=== PATIENT | female | born 1990 | race Caucasian/White ===

== ENCOUNTER 2017-11-22 21:12 | Outpatient (CLI) | payer MEDICAID, SELFPAY ==
[2017-11-22 22:21] LABS: ROM Internal Control Test YES-OK TO RESULT pt. (Internal QC); ROM Patient Test Negative (Negative)
[2017-11-22 22:35] LABS: Mucous, Urine 0 SEEN /hpf (<or=2+); Red Blood Cells-Urine 0 SEEN /hpf (0-5)
[2017-11-22 22:43] VITALS: BMI 39.2
[2017-11-22 22:45] LABS: Color, Urine Yellow (Yellow); Glucose, Dipstick Normal (Normal); Ketone-Dipstick Negative (Negative); Leukocyte Esterase-Dipstick 100 /ul (Negative); Nitrite-Dipstick Negative (Negative); Occult Blood-Urine 10 /ul (Negative); Protein-Dipstick Negative (Negative); Urine Bilirubin Dipstick Negative (Negative); Urine Clarity Clear (Clear); Urine Urobilinogen Normal (Normal)
[2017-11-22 22:53] LABS: Bacteria 1+ /hpf (None Seen); Squamous Epithelial Cells - UA 0-5 SEEN /hpf (5-10); White Blood Cells 0-5 SEEN /hpf (0-5)
[2017-11-22] MEDS: Lactated Ringers 1,000 ML 999 ML IV (23:15)
[2017-11-22 23:39] LABS: Hematocrit 32.9 % (37-47); Hemoglobin 10.9 g/dl (12.0-15.0); Mean Corp Hgb Conc 33.1 g/gl (32-36); Mean Corpuscular Hgb 29.5 pg (27.0-32.0); Mean Corpuscular Volume 88.9 fL (81-99); Platelet Count 183 K/mm3 (150-450); RBC Distribution Width CV 14.8 % (11.6-14.6); RBC Distribution Width SD 48.4 fl (35.1-43.9); White Blood Count 11.6 K/mm3 (4.4-11.0)
[2017-11-22 23:40] LABS: Scan Indicated on CBC? Y/N NO
[2017-11-22 23:41] LABS: AST(SGOT) 14 U/L (15-37); Alanine Aminotransfer ALT/SGPT 14 U/L (13-56); Creatinine, Serum 0.58 mg/dL (0.55-1.02); EST Glomerular Filtration Rate 131 mL/min (>60); Est Glom Filt Rate - Afr Amer 158 mL/min (>60); Estimated Creatinine Clearance 141.68 ml/min; Protein, Urine (Random) 8.9 mg/dL (<11.9); Protein:Creat Ratio 333 mg/g CRE (0-200); Uric Acid 4.7 mg/dL (2.6-6.0)
[2017-11-23 00:35] LABS: International Normalized Ratio 1.1; Partial Thromboplast Time 26.8 Seconds (24.1-36.2); Prothrombin Time (Protime)PT. 13.7 SECONDS (11.7-14.9)
[2017-11-23 00:47] LABS: Protein, Urine (Random) 6.3 mg/dL (<11.9); Protein:Creat Ratio 412 mg/g CRE (0-200)
[2017-11-23] MEDS: Lactated Ringers 1,000 ML 125 ML IV (01:06)
--- NOTE | 2017-11-23 01:39 | OB.TRI.HP_ITS ---
History of Present Illness Date of Service: 11/22/17 Was patient seen by the physician?: Yes Reason For Visit: LABOR & DELIVERY Date of Service: 11/22/17 Final MELISSA: 12/06/17 Final MELISSA Source: US <20 weeks Gestational age: 38 Weeks and 1 Days History of Present Illness: @ 38.1 presented c/o ? LOF. Pt denies SWAN, blurry vision or epigastric pain Home Medications Medication Instructions Recorded Acyclovir 200 mg PO BID 11/22/17 Allergies raspberry Allergy (Verified 11/22/17 22:45) Unknown vaccine adjuvant emulsion MF59C.1 Allergy (Verified 11/22/17 22:45) Unknown Physical Exam General: Alert, Oriented x3 Abdomen: Soft, Non Tender, Gravid Extremities:: Deep tendon reflexes - +2, Other - no clonus Estimated gestational size: Appropriate for gestational size Presentation: Breech Cervix Dilation (cm): 0 Station: -3 Effacement (%): 0 NST - FHR Rate Baby A Baseline: 135 Variability:: Moderate Accelerations:: 15 x 15 Decelerations:: None NST Reactive:: Yes FHR Category:: Category I Uterine Activity:: occasional Impression/Plan 27yo @ 38.1 wks, breech, not in labor 1) pt had 2 slightly elevated BP- PRE E labs sent- normal. UA showed negative protein however the urine prot/creatinine ratio was elevated- since arrival BPs have been normal. At this time I would like to collect 24 hr urine protein. 2) BREECH- attempted external cephalic version- was able to rotate to vertex but fetus returned to breech presentation. 3) pt does not desires c/s and would like to attempt repeat external cephalic version on saturday as scheduled with help of assistant grocery store manager. 4) Pt was counseled that if 24 hr urine protein is elevated then decision would be for delivery at this time.
--- NOTE | 2017-11-23 01:39 | PCM.OP.BLANK ---
Operative Report Date of Procedure: 11/23/17 surgeon: Dr. Sita Bahena cement tester assistant: none anesthesia None Pre procedure dx: Term gestation, BREECH Post procedure dx: same Procedure performed: External cephalic version complications: NONE After informed was obtained and a category 1 reactive tracing was noted ultrasound was used to confirm breech presentation with adequate ONEIL, head in maternal right upper quadrant. Attempted backward roll first without success. Next attempted forward roll was performed and was able to get the head in an oblique position in the left lower quadrant. It appeared with gentle downward pressure the head was vertex however quickly reverted back to the maternal right upper quadrant once pressure was release from abdomen. Vaginal exam was performed- Closed, thick. pt tolerated well. Pt will try different position as fetus has been unstable in presentation. Will reattempt version 11/25/17 as desired by patient.
--- NOTE | 2017-11-23 01:45 | OP.PCM_ITS ---
Operative Report Date of Procedure: 11/23/17 surgeon: Dr. Sita Bahena assistant finance manager: none anesthesia None Pre procedure dx: Term gestation, BREECH Post procedure dx: same Procedure performed: External cephalic version complications: NONE After informed was obtained and a category 1 reactive tracing was noted ultrasound was used to confirm breech presentation with adequate ONEIL, head in maternal right upper quadrant. Attempted backward roll first without success. Next attempted forward roll was performed and was able to get the head in an oblique position in the left lower quadrant. It appeared with gentle downward pressure the head was vertex however quickly reverted back to the maternal right upper quadrant once pressure was release from abdomen. Vaginal exam was performed- Closed, thick. pt tolerated well. Pt will try different position as fetus has been unstable in presentation. Will reattempt version 11/25/17 as desired by patient.
--- NOTE | 2017-11-23 07:15 | PCM.PN.BLA ---
Progress Note pt seen at bedside, BPs have been stable overnight. Will get NST this morning- if reactive will dc home with 24 hr urine protein to be collected at home and turned back to L&D first thing in morning. Dr. Arreola consulted with this and agrees with plan, will follow up lab tomorrow. Pt understands if 24 hr urine protein is abnormal she will be notified for delivery tomorrow via c/s. If 24 hr urine protein is normal we will proceed with plan to reattempt version on saturday11/25/17. pt verbalized understanding.
[2017-11-24 09:59] LABS: 24 Hour Urine Protein 386.3 mg/24HR (<150 MG/24HR); 24HR. UA Prot. Total Volume 3825 mL; Urine Protein (24 Hour) 10.1 mg/dL (<11.9)
== END 2017-11-23 07:53 | disposition home or self-care (01) ==
LOC: WPOUT 21:29 → WP 21:30
PROVIDERS: Family Provider Obstetrics & Gynecology; Visit Provider Obstetrics & Gynecology
DX: O32.1XX0 Maternal care for breech presentation, not applicable or unspecified (principal); R03.0 Elevated blood-pressure reading, without diagnosis of hypertension; Z3A.38 38 weeks gestation of pregnancy
CPT/HCPCS: 36415; 59025; 59050; 59412; 76815; 81001; 82565; 82570; 84112; 84156; 84450; 84460; 84550; 85027; 85610; 85730; 86850; 86900; 99218; J7120; G0378

== ENCOUNTER 2017-11-24 11:35 | Outpatient (CLI) | payer MEDICAID, SELFPAY ==
[2017-11-24 12:02] VITALS: BMI 41.7
--- NOTE | 2017-11-24 16:09 | OB.TRI.NOTE ---
History of Present Illness Date of Service: 11/24/17 Reason For Visit: R/O LABOR Date of Service: 11/24/17 Final MELISSA: 12/06/17 Gestational age: 38 Weeks and 2 Days Home Medications Medication Instructions Recorded RX: Acyclovir 400 mg PO BID 11/22/17 Prenatabs FA 1 tab PO DAILY 11/24/17 Allergies raspberry Allergy (Verified 11/22/17 22:45) Unknown vaccine adjuvant emulsion MF59C.1 Allergy (Verified 11/22/17 22:45) Unknown NST - FHR Rate Baby A Baseline: 140 Variability:: Moderate Accelerations:: 15 x 15 Decelerations:: None, Early Uterine Activity:: quiet Impression/Plan reactive NST for proteinuria in No evidence preeclampsia as BP's normal
== END 2017-11-24 12:45 | disposition home or self-care (01) ==
LOC: WPOUT 11:59 → WP 11:59
PROVIDERS: Family Provider Family Medicine; PCP Family Medicine; Visit Provider Obstetrics & Gynecology
DX: O12.13 Gestational proteinuria, third trimester (principal); Z3A.38 38 weeks gestation of pregnancy
CPT/HCPCS: 59025; 59050; 99218; G0378

== ENCOUNTER 2017-11-29 06:45 | Inpatient (IN) | payer MEDICAID, SELFPAY ==
[2017-11-29 06:52] VITALS: BMI 41.1
[2017-11-29] MEDS: Lactated Ringers 1,000 ML 50 ML IV ×4 (07:30→23:39)
[2017-11-29 08:03] LABS: Hematocrit 33.9 % (37-47); Hemoglobin 11.2 g/dl (12.0-15.0); Mean Corpuscular Hgb 29.7 pg (27.0-32.0); Mean Corpuscular Volume 89.9 fL (81-99); Mean Platelet Vol. 10.2 fl (6.2-12.0); Platelet Count 181 K/mm3 (150-450); RBC Distribution Width SD 47.7 fl (35.1-43.9); Red Blood Count 3.77 M/mm3 (4.2-5.4)
[2017-11-29 08:04] LABS: Scan Indicated on CBC? Y/N NO
[2017-11-29] MEDS: Oxytocin 30 units/NS 500 ml 30 UNITS/500 ML IV.SOLN IV (08:12)
--- NOTE | 2017-11-29 13:39 | PCM.HP.OB ---
- Problem List (1) Depression Status: Acute (2) Vulvovaginal condyloma Status: Acute (3) History of third degree perineal laceration Status: Acute (4) Genital herpes Status: Resolved (5) History of marijuana use Status: Acute (6) Obesity affecting Status: Acute (7) Unstable lie of fetus Status: Acute History Date of Admission: 11/29/17 Final MELISSA: 12/06/17 Final MELISSA Source: LMP Gestational age: 39 Weeks and 0 Days History of this : female at 39w0d by LMP, confirmed by first trimester U/S. Presented to L&D for induction of labor due to unstable lie and confirmed cephalic on admission by ultrasound. Denies any headaches, visual changes, chest pain, shortness of breath, leakage of fluid or vaginal bleeding. Patient does not have custody of other 2 children, live with her mother. OB Hx: History of 3rd degree perineal laceratino Depression-No current treatment, history of suicidal ideations Vulvovaginal condyloma HSV-Acyclovir prophylaxis Obesity Allergies raspberry Allergy (Verified 11/22/17 22:45) Unknown vaccine adjuvant emulsion MF59C.1 Allergy (Verified 11/22/17 22:45) Unknown Current Medications Acetaminophen (Tylenol) 325 - 650 mg PO Q4H PRN PRN PRN Reason: PAIN OR FEVER >100.4F Al Hydroxide/Mg Hydroxide (Mylanta Ii) 15 - 30 ml PO Q4H PRN PRN PRN Reason: INDIGESTION Citric Acid/Sodium Citrate (Bicitra) 30 ml PO UD PRN Oxytocin/Sodium Chloride () 30 units in 500 mls @ 1 mls/hr IV .Q500H [facility] Last Admin: 11/29/17 08:12 Dose: 1 mls/hr Lactated Ringer's () 1,000 mls @ 50 mls/hr IV .Q20H [facility] Last Admin: 11/29/17 07:30 Dose: 50 mls/hr Nalbuphine HCl (Nubain) 5 - 10 mg IV Q3H PRN PRN PRN Reason: PAIN (4-10/10) Ondansetron HCl (Zofran) 4 mg IV Q8H PRN PRN PRN Reason: NAUSEA Promethazine HCl (Phenergan (Ll)) 6.25 - 12.5 mg IV Q4H PRN PRN; Protocol PRN Reason: IF NAUSEA PERSISTS Sodium Chloride () 5 - 15 ml IV UD LOTTIE Smoking Status: Former smoker Alcohol: None Drug Use: none - History of marijana use. NO use since positive test Number of Fetus(es): 1 Review of Systems Constitutional: Denies: Chills, Fever, Weight Change Cardiovascular: Reports: Chest Pain Respiratory: Reports: Cough Gastrointestinal: Denies: Abdominal Pain, Nausea, Vomiting Genitourinary: Denies: Dysuria Physical Exam Vitals: GBS negative Rubella Immune HIV negative RPR negative HBsAG negative GC/CT negative AB positive, antibody screen negative General: Alert, Oriented x3, No apparent distress Cardiovascular: Regular rate, Regular Rhythm, No murmurs Lungs: Clear to auscultation, No rhonchi, No wheeze Abdomen: Bowel Sounds Present, Gravid Extremities:: No edema Presentation: Cephalic Cervix Dilation (cm): 1 Station: -3 Effacement (%): 50 Assessment/Plan Active and Suspected Problems Depression (Acute) Vulvovaginal condyloma (Acute) History of third degree perineal laceration (Acute) History of marijuana use (Acute) Obesity affecting (Acute) Unstable lie of fetus (Acute) FHT 135, moderate variability, accels, Category 1 Irregular contraction Pitocin 9 mu's A:Pitocin Induction of labor, early labor Category 1 FHT P: 1) Admit to L&D routine induction orders 2) Continue with Pitocin induction 3) Walcher's position and position changes. 4) collaborative physician, updated on patient status Janette Ace CNM
[2017-11-29] MEDS: Acetaminophen 325 MG Tablet PO (13:47)
--- NOTE | 2017-11-29 13:52 | HP.PCM_ITS ---
- Problem List (1) Depression Status: Acute (2) Vulvovaginal condyloma Status: Acute (3) History of third degree perineal laceration Status: Acute (4) Genital herpes Status: Resolved (5) History of marijuana use Status: Acute (6) Obesity affecting Status: Acute (7) Unstable lie of fetus Status: Acute History Date of Admission: 11/29/17 Final MELISSA: 12/06/17 Final MELISSA Source: LMP Gestational age: 39 Weeks and 0 Days History of this : female at 39w0d by LMP, confirmed by first trimester U/S. Presented to L &D for induction of labor due to unstable lie and confirmed cephalic on admission by ultrasound. Denies any headaches, visual changes, chest pain, shortness of breath, leakage of fluid or vaginal bleeding. Patient does not have custody of other 2 children, live with her mother. OB Hx: History of 3rd degree perineal laceratino Depression-No current treatment, history of suicidal ideations Vulvovaginal condyloma HSV-Acyclovir prophylaxis Obesity Allergies raspberry Allergy (Verified 11/22/17 22:45) Unknown vaccine adjuvant emulsion MF59C.1 Allergy (Verified 11/22/17 22:45) Unknown Current Medications Acetaminophen (Tylenol) 325 - 650 mg PO Q4H PRN PRN PRN Reason: PAIN OR FEVER >100.4F Al Hydroxide/Mg Hydroxide (Mylanta Ii) 15 - 30 ml PO Q4H PRN PRN PRN Reason: INDIGESTION Citric Acid/Sodium Citrate (Bicitra) 30 ml PO UD PRN Oxytocin/Sodium Chloride () 30 units in 500 mls @ 1 mls/hr IV .Q500H [facility] Last Admin: 11/29/17 08:12 Dose: 1 mls/hr Lactated Ringer's () 1,000 mls @ 50 mls/hr IV .Q20H [facility] Last Admin: 11/29/17 07:30 Dose: 50 mls/hr Nalbuphine HCl (Nubain) 5 - 10 mg IV Q3H PRN PRN PRN Reason: PAIN (4-10/10) Ondansetron HCl (Zofran) 4 mg IV Q8H PRN PRN PRN Reason: NAUSEA Promethazine HCl (Phenergan (Ll)) 6.25 - 12.5 mg IV Q4H PRN PRN; Protocol PRN Reason: IF NAUSEA PERSISTS Sodium Chloride () 5 - 15 ml IV UD LOTTIE Smoking Status: Former smoker Alcohol: None Drug Use: none - History of marijana use. NO use since positive test Number of Fetus(es): 1 Review of Systems Constitutional: Denies: Chills, Fever, Weight Change Cardiovascular: Reports: Chest Pain Respiratory: Reports: Cough Gastrointestinal: Denies: Abdominal Pain, Nausea, Vomiting Genitourinary: Denies: Dysuria Physical Exam Vitals: GBS negative Rubella Immune HIV negative RPR negative HBsAG negative GC/CT negative AB positive, antibody screen negative General: Alert, Oriented x3, No apparent distress Cardiovascular: Regular rate, Regular Rhythm, No murmurs Lungs: Clear to auscultation, No rhonchi, No wheeze Abdomen: Bowel Sounds Present, Gravid Extremities:: No edema Presentation: Cephalic Cervix Dilation (cm): 1 Station: -3 Effacement (%): 50 Assessment/Plan Active and Suspected Problems Depression (Acute) Vulvovaginal condyloma (Acute) History of third degree perineal laceration (Acute) History of marijuana use (Acute) Obesity affecting (Acute) Unstable lie of fetus (Acute) FHT 135, moderate variability, accels, Category 1 Irregular contraction Pitocin 9 mu's A:Pitocin Induction of labor, early labor Category 1 FHT P: 1) Admit to L&D routine induction orders 2) Continue with Pitocin induction 3) Walcher's position and position changes. 4) collaborative physician, updated on patient status Janette Ace CNM
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
--- NOTE | 2017-11-29 17:54 | PCM.PROGNOTE ---
Patient Problems: Active and Suspected Problems Depression (Acute) Vulvovaginal condyloma (Acute) History of third degree perineal laceration (Acute) History of marijuana use (Acute) Obesity affecting (Acute) Unstable lie of fetus (Acute) Subjective: Resting in bed. Epidural placed and test dose given. Family at bedside. Objective: FHT: 130, moderate variability, accels, variability accels TOCO: Irregular Cervix: 2cm/50%/-3 - Physical Exam Weight: 247 lb 4 oz Body Mass Index (BMI) 41.1 Finger Stick Blood Glucose 147 Laboratory Tests Past 24 Hrs 11/29/17 11/29/17 07:30 07:30 WBC 10.0 RBC 3.77 L Hgb 11.2 L Hct 33.9 L MCV 89.9 MCH 29.7 MCHC 33.0 RDW 15.0 H RDW Differential 47.7 H Plt Count 181 MPV 10.2 Blood Type AB POSITIVE Antibody Screen NEGATIVE Medical Necessity - Tobacco Use Smoking Status: Former smoker Assessment/Plan Active and Suspected Problems Depression (Acute) Vulvovaginal condyloma (Acute) History of third degree perineal laceration (Acute) History of marijuana use (Acute) Obesity affecting (Acute) Unstable lie of fetus (Acute) A:Induction of Labor Category 2 FHT P: 1) notified of high station and irregular contractions. Unable to AROM due to station. Will come for evaluation.
[2017-11-29] MEDS: fentaNYL-bupivacaine (epidural) 100 ML BAG EPIDURAL (21:48)
[2017-11-29 22:28] LABS: Barbiturate Urine VISTA NEGATIVE (< 200 ng/mL); Benzodiazepine Urine VISTA NEGATIVE (< 200 ng/mL); Ecstacy Urine VISTA NEGATIVE (< 500 ng/mL); Methadone Urine VISTA NEGATIVE (< 300 ng/mL); PCP Urine VISTA NEGATIVE (< 25 ng/mL); THC Urine VISTA NEGATIVE (< 50 ng/mL)
[2017-11-29 22:29] LABS: Amphetamine Urine VISTA NEGATIVE (<1000 ng/mL); Cocaine Urine VISTA NEGATIVE (< 300 ng/mL); Vista UDS pH Range 6
--- NOTE | 2017-11-30 01:04 | PCM.PROGNOTE ---
Patient Problems: Active and Suspected Problems Depression (Acute) Vulvovaginal condyloma (Acute) History of third degree perineal laceration (Acute) History of marijuana use (Acute) Obesity affecting (Acute) Unstable lie of fetus (Acute) Subjective: Sleeping comfortably with epidural on right side. Objective: Cervix 3-4cm/75%/-3 TOCO: every 7 minutes Pitocin at 20mu's, turned off for 20 minutes, restarted at 10mu's FHTs: 135, moderate variability, accels, no decels, Category 1 - Physical Exam Weight: 247 lb 4 oz Body Mass Index (BMI) 41.1 Finger Stick Blood Glucose 147 Intake and Output for Last 24 Hours 11/28/17 11/29/17 11/30/17 23:59 23:59 23:59 Intake Total 3300 / 3300 Output Total 600 / 600 Balance 2700 / 2700 Laboratory Tests Past 24 Hrs 11/29/17 11/29/17 11/29/17 07:30 07:30 21:00 WBC 10.0 RBC 3.77 L Hgb 11.2 L Hct 33.9 L MCV 89.9 MCH 29.7 MCHC 33.0 RDW 15.0 H RDW Differential 47.7 H Plt Count 181 MPV 10.2 Urine Opiates Screen NEGATIVE Urine Methadone Screen NEGATIVE Ur Barbiturates Screen NEGATIVE Ur Phencyclidine Scrn NEGATIVE Ur Amphetamines Screen NEGATIVE U Methamphetamin-MDMA NEGATIVE U Benzodiazepines Scrn NEGATIVE Urine Cocaine Screen NEGATIVE U Cannabinoids Screen NEGATIVE Ur Drug Screen Comment Blood Type AB POSITIVE Antibody Screen NEGATIVE Medical Necessity - Tobacco Use Smoking Status: Former smoker Assessment/Plan Active and Suspected Problems Depression (Acute) Vulvovaginal condyloma (Acute) History of third degree perineal laceration (Acute) History of marijuana use (Acute) Obesity affecting (Acute) Unstable lie of fetus (Acute) A: Induction of Labor, progressing Category 1 FHT P: 1) COntinue with active management 2) Pitocin restarted at 10 mu's
[2017-11-30] MEDS: fentaNYL-bupivacaine (epidural) 100 ML BAG EPIDURAL ×2 (02:27→07:16)
[2017-11-30] MEDS: Lactated Ringers 1,000 ML 50 ML IV (05:06)
--- NOTE | 2017-11-30 06:05 | PCM.PN.OB ---
Patient Problems: Active and Suspected Problems Depression (Acute) Vulvovaginal condyloma (Acute) History of third degree perineal laceration (Acute) History of marijuana use (Acute) Obesity affecting (Acute) Unstable lie of fetus (Acute) Subjective: Resting in bed comfortable with epidural. Slept well throughout the night. Family at bedside. Objective: FHT 135, moderate variability, accels, variable decel, Category 2 TOCO: q4m, strong, lasting 60-80 seconds. Resting tone 10, Intensity 50-55, MVUs 85-125. IUPC in place Cervix: 3-4cm/70%/-4. FSE in place. - Physical Exam Weight: 247 lb 4 oz Body Mass Index (BMI) 41.1 Finger Stick Blood Glucose 147 Intake and Output for Last 24 Hours 11/28/17 11/29/17 11/30/17 23:59 23:59 23:59 Intake Total 3300 / 3300 1400 / 1400 Output Total 600 / 600 1000 / 1000 Balance 2700 / 2700 400 / 400 Laboratory Tests Past 24 Hrs 11/29/17 11/29/17 11/29/17 07:30 07:30 21:00 WBC 10.0 RBC 3.77 L Hgb 11.2 L Hct 33.9 L MCV 89.9 MCH 29.7 MCHC 33.0 RDW 15.0 H RDW Differential 47.7 H Plt Count 181 MPV 10.2 Urine Opiates Screen NEGATIVE Urine Methadone Screen NEGATIVE Ur Barbiturates Screen NEGATIVE Ur Phencyclidine Scrn NEGATIVE Ur Amphetamines Screen NEGATIVE U Methamphetamin-MDMA NEGATIVE U Benzodiazepines Scrn NEGATIVE Urine Cocaine Screen NEGATIVE U Cannabinoids Screen NEGATIVE Ur Drug Screen Comment Blood Type AB POSITIVE Antibody Screen NEGATIVE Medical Necessity - Tobacco Use Smoking Status: Former smoker Assessment/Plan Active and Suspected Problems Depression (Acute) Vulvovaginal condyloma (Acute) History of third degree perineal laceration (Acute) History of marijuana use (Acute) Obesity affecting (Acute) Unstable lie of fetus (Acute) A: Induction of labor, protracted P: 1) Labor with slow progression. Remains at 3-4 centimeters. Walcher's position and side lying release. 2) Continue with Pitocin induction at this time. To notify and consider turning off pitocin for couple hours.
--- NOTE | 2017-11-30 08:50 | PCM.PN.OB ---
Patient Problems: Active and Suspected Problems Depression (Acute) Vulvovaginal condyloma (Acute) History of third degree perineal laceration (Acute) History of marijuana use (Acute) Obesity affecting (Acute) Unstable lie of fetus (Acute) Subjective: Resting in bed comfortably with epidural. Family at bedside. Objective: FHT 135, moderate variability, accels, Category 1 8cm/80%/-2 TOCO every 3-4 minutes, strong - Physical Exam Weight: 247 lb 4 oz Body Mass Index (BMI) 41.1 Finger Stick Blood Glucose 147 Intake and Output for Last 24 Hours 11/28/17 11/29/17 11/30/17 23:59 23:59 23:59 Intake Total 3300 / 3300 1400 / 1400 Output Total 600 / 600 1000 / 1000 Balance 2700 / 2700 400 / 400 Laboratory Tests Past 24 Hrs 11/29/17 11/29/17 07:30 21:00 Urine Opiates Screen NEGATIVE Urine Methadone Screen NEGATIVE Ur Barbiturates Screen NEGATIVE Ur Phencyclidine Scrn NEGATIVE Ur Amphetamines Screen NEGATIVE U Methamphetamin-MDMA NEGATIVE U Benzodiazepines Scrn NEGATIVE Urine Cocaine Screen NEGATIVE U Cannabinoids Screen NEGATIVE Ur Drug Screen Comment Blood Type AB POSITIVE Antibody Screen NEGATIVE Medical Necessity - Tobacco Use Smoking Status: Former smoker Assessment/Plan Active and Suspected Problems Depression (Acute) Vulvovaginal condyloma (Acute) History of third degree perineal laceration (Acute) History of marijuana use (Acute) Obesity affecting (Acute) Unstable lie of fetus (Acute) A:Active labor, progressing Category 1 FHT P: 1)Continue with active management and pitocin at current rate. Will not turn off Pitocin at this time. 2) notified of plan and patient status. 3) Anticipate vaginal delivery soon.
[2017-11-30] MEDS: Oxytocin 30 units/NS 500 ml 30 UNITS/500 ML IV.SOLN 334 UNITS IV (09:10)
[2017-11-30] MEDS: Oxytocin 30 units/NS 500 ml 30 UNITS/500 ML IV.SOLN 167 UNITS IV (09:40)
[2017-11-30] MEDS: Lactated Ringers 1,000 ML 15 ML IV (09:50)
--- NOTE | 2017-11-30 10:07 | PCM.OB.VAG ---
- Problem List (1) Depression Status: Acute (2) Vulvovaginal condyloma Status: Acute (3) History of third degree perineal laceration Status: Acute (4) Genital herpes Status: Resolved (5) History of marijuana use Status: Acute (6) Obesity affecting Status: Acute (7) Unstable lie of fetus Status: Acute Vaginal Delivery Method of Induction: Pitocin, Amniotomy Amniotic Membrane Rupture Type: Spontaneous Amniotic Fluid Description: Clear Final MELISSA: 12/06/17 Gestational age: 39 Weeks and 1 Days Date of Procedure: 11/30/17 Pre-Operative Diagnosis: Induction of Labor Post-Operative Diagnosis: Surgery/ Procedure Performed: Spontaneous Vaginal Delivery Type of Anesthesia: Epidural, Local with 1% lidocaine Description of Procedure: Called out for help due to strong urge to push. Complete and strong urge present. of viable female infant over 1st degree perineal laceration. delivered via RICHY without difficulty. Placed on maternal abdomen, strong cry, skin to skin. Suctioned mouth and nares for secretions. Pitocin IV for active 3rd stage management. Placenta delivered via gildardo, intact, 3 vessel cord. Fundus firm. Perineum inspected, revealed 1st degree perineal laceration and profusely bleeding. Repaired with Lidocaine and 3.0 vicryl. Hemostasis achieved. EBL 450ml. Mom and baby stable. notified of delivery. Follwoing delivery patient became lightheaded, dizzy, and faint. Nauseated with emesis and headache. 1 liter LR, O2, sitting up in bed. HR 100, BP 117/70 recovered. notified of patient status and stable at this time. Presentation: Vertex, RICHY Placental Delivery Description: Spontaneous Placenta Disposition: [facility] Cord Vessel Description: 3 Vessels Cord Entanglement: None Estimated Blood Loss: 450ml Infant A gender: Female (1 minute): 9 (5 minute): 9 Laceration: Perineal Extension/lac Medications given after delivery: IV Pitocin
[2017-11-30] MEDS: Oxytocin 10 UNITS/ML Vial IM (10:22)
[2017-11-30 10:24] LABS: Hematocrit 29.4 % (37-47); Hemoglobin 9.6 g/dl (12.0-15.0); Mean Corp Hgb Conc 32.7 g/gl (32-36); Mean Corpuscular Hgb 29.7 pg (27.0-32.0); Mean Platelet Vol. 10.3 fl (6.2-12.0); Platelet Count 185 K/mm3 (150-450); RBC Distribution Width CV 15.1 % (11.6-14.6); RBC Distribution Width SD 48.3 fl (35.1-43.9); Red Blood Count 3.23 M/mm3 (4.2-5.4)
[2017-11-30 10:25] LABS: Scan Indicated on CBC? Y/N NO
[2017-11-30] MEDS: Acetaminophen 325 MG Tablet PO (10:27)
[2017-11-30 10:38] LABS: ALB/GLOB Ratio 0.6 RATIO (0.9-2.4); AST(SGOT) 15 U/L (15-37); Alanine Aminotransfer ALT/SGPT 12 U/L (13-56); Alkaline Phosphatase 92 U/L (45-117); Anion Gap 9 (5-15); BUN 5 mg/dL (7-18); BUN/Creat Ratio 8.7 RATIO (10-20); Calcium,Total 7.8 mg/dL (8.5-10.1); Chloride 109 mmol/L (98-107); Creatinine, Serum 0.58 mg/dL (0.55-1.02); EST Glomerular Filtration Rate 133 mL/min (>60); Est Glom Filt Rate - Afr Amer 161 mL/min (>60); Globulin 3.3 g/dL (2.2-4.2); Glucose 90 mg/dL (74-106); Potassium 3.6 mmol/L (3.5-5.1); Protein, Total 5.3 g/dL (6.4-8.2); Sodium Level 141 mmol/L (136-145); Uric Acid 4.9 mg/dL (2.6-6.0)
[2017-11-30] MEDS: Naproxen 250 MG Tablet PO ×2 (11:11→19:51)
[2017-11-30 11:30] VITALS: BP 124/67; PULSE 102; RESP 18; TEMP 37
--- NOTE | 2017-11-30 13:01 | NURSING ---
pt still rating pain as 4/10 after tylenol and naprosyn. complaints of perineal pain and right hand numbness (has had carpal tunnel this entire per CNM) Janette Ace CNM informed while on floor, asked if she wanted to give anything else. She declined and stated she could try ice on her hand if pt is willing. Will inform pt.
--- NOTE | 2017-11-30 13:19 | NURSING ---
pre in baby bracelet number [id number], registration put the baby under another m # after delivery and the charts need merged after discharge. Stated per Chey director of registration. Baby was always in room with both parents and parents bracelets and baby bracelets both are the same checked by Amy Zacarias RN and Monika Gan RN. Charge nurse Roopa Stroud RN aware.
[2017-11-30 14:00] VITALS: BP 134/64; PULSE 100; RESP 16; TEMP 36.6
[2017-11-30] MEDS: Acyclovir 200 MG Capsule 400 MG PO ×2 (14:03→23:28)
[2017-11-30] MEDS: Acetaminophen 500 MG Tablet 1000 MG PO (16:36)
[2017-11-30 18:00] VITALS: BP 124/64; PULSE 82; RESP 16; TEMP 36.6
[2017-11-30 19:37] VITALS: BP 127/79; PULSE 107; RESP 18; TEMP 36.2
[2017-11-30 23:36] VITALS: BP 145/66; PULSE 110; RESP 18; TEMP 36.6
[2017-12-01 04:10] VITALS: BP 106/57; PULSE 105; RESP 18; TEMP 36.4
[2017-12-01 06:41] LABS: Absolute Lymphocyte Count 0.93 X10^3/ul (0.83-4.51); Absolute Neutrophil Count 8.4 X10^3/uL (2.0-7.7); Basophil# 0.02 X10^3/uL; Basophil% 0.2 % (0-1); Eosinophil# 0.06 X10^3/uL; Eosinophils% 0.6 % (0-5); Hemoglobin 7.6 g/dl (12.0-15.0); Lymphocyte # 0.93 X10^3/ul (4.0); Lymphocyte % 9.3 % (19-41); Mean Corpuscular Hgb 30.3 pg (27.0-32.0); Mean Corpuscular Volume 91.6 fL (81-99); Mean Platelet Vol. 10.4 fl (6.2-12.0); Monocyte# 0.57 X10^3/uL; Monocyte% 5.7 % (0-10); Neutrophil % 83.7 % (47-70); POSITIVE COUNT NO; POSITIVE DIFFERENTIAL NO; POSITIVE MORPHOLOGY NO; Platelet Count 139 K/mm3 (150-450); RBC Distribution Width CV 15.3 % (11.6-14.6); RBC Distribution Width SD 47.5 fl (35.1-43.9); Red Blood Count 2.51 M/mm3 (4.2-5.4)
[2017-12-01 07:37] VITALS: BP 119/56; PULSE 102; RESP 16; TEMP 36.4; O2SAT 99
--- NOTE | 2017-12-01 08:47 | NURSING ---
During bedside report baby crying and very upset. MOB states tried feeding baby bottle and she ate 13cc but baby gagged the whole time. 10 min later this RN went in to do assessment and vitals on mom and baby. Baby was still very upset and at this time MOB was attempting to get baby on breast. This RN stated that first she should try to console baby and then attempt to get her to latch if she felt she was still hungry. MOB stated that she didn't know what else she could do to help. This RN took baby and got baby to burp and calm down. Explained to MOB and FOB to try and burp baby, check for wet or dirty diaper or put baby skin to skin to get her to calm down. FOB stated at this time she just wants held constantly and we can't do that and sleep because you guys don't let us This RN explained safe sleep to FOB and MOB and importance of consoling baby but not sleeping with them for babies safety. When this RN left at that time mother was skin to skin with baby. 20 min later this RN at nurses station and heard baby screaming from desk. This RN went in to see if assistance was needed. MOB was resting in bed, FOB on couch and baby in crib. FOB stated I tried burping her but nothing happened so i put her back. This RN taught FOB how to swaddle and try giving pacifier to help soothe her. Baby calm and content in crib at this time. 5 min later baby heard crying again from nurses station. This RN waited 10 min before going in to see if FOB or MOB would attempt to soothe baby at this time. Baby continued crying and this RN went in to see MOB resting in bed and FOB sitting on couch scrolling through phone. No attempt made to soothe baby at this time. FOB states to this RN can you just take her. RN took baby to nursery at this time. Baby showing feeding cues, fed 15 cc of formula and burped. Swaddled back up and placed in crib content.
[2017-12-01] MEDS: Acyclovir 200 MG Capsule 400 MG PO ×2 (11:03→22:25)
--- NOTE | 2017-12-01 13:13 | PCM.PN.OB ---
Patient Problems: Active and Suspected Problems Depression (Acute) Vulvovaginal condyloma (Acute) History of third degree perineal laceration (Acute) History of marijuana use (Acute) Obesity affecting (Acute) Unstable lie of fetus (Acute) Subjective: Doing well per patient. Bottle feeding. Ambulating and taking PO without difficulty. Denies any issues with voiding, having BM. human services instructor involved and working with patient. Per nursing staff patient and partner having some difficulty being attentive to baby. - Physical Exam General: Alert Lungs: Clear to auscultation, No rhonchi, No wheeze Cardiovascular: Regular rate, Regular Rhythm, No murmurs Abdomen: Bowel Sounds Present, - - Fundus firm 2 below U Extremities: No edema, - - Dawson's negative bilaterally Psych/Mental Status: Normal Affect, Appropriate Vital Signs Temp Pulse Resp BP Pulse Ox 97.6 F L 102 H 16 119/56 L 99 12/01/17 07:37 12/01/17 07:37 12/01/17 07:37 12/01/17 07:37 12/01/17 07:37 Oxygen Delivery Method Room Air Weight: 247 lb 4 oz Body Mass Index (BMI) 41.1 Finger Stick Blood Glucose 147 Intake and Output for Last 24 Hours 11/29/17 11/30/17 12/01/17 23:59 23:59 23:59 Intake Total 3300 / 3300 4374 / 4374 Output Total 600 / 600 1999 / 1999 Balance 2700 / 2700 2374 / 2374 Laboratory Tests Past 24 Hrs 12/01/17 06:20 WBC 10.0 RBC 2.51 L Hgb 7.6 L Hct 23.0 L MCV 91.6 MCH 30.3 MCHC 33.0 RDW 15.3 H RDW Differential 47.5 H Plt Count 139 L MPV 10.4 Immature Gran % (Auto) 0.500 Neut % (Auto) 83.7 H Lymph % (Auto) 9.3 L [place] % (Auto) 5.7 Eos % (Auto) 0.6 Baso % (Auto) 0.2 Absolute Neuts (auto) 8.4 H Absolute Lymphs (auto) 0.93 Total Counted Not Reportable Medical Necessity - Tobacco Use Smoking Status: Former smoker Assessment/Plan Active and Suspected Problems Depression (Acute) Vulvovaginal condyloma (Acute) History of third degree perineal laceration (Acute) History of marijuana use (Acute) Obesity affecting (Acute) Unstable lie of fetus (Acute) A: PPD#1 P: Routine care human services instructor consulted and has evaluated patient. Would like Nexplanon placement prior to discharge. Continuing Acyclovir for history of HSV
--- NOTE | 2017-12-01 13:24 | PN.OBGYN_ITS ---
Patient Problems: Active and Suspected Problems Depression (Acute) Vulvovaginal condyloma (Acute) History of third degree perineal laceration (Acute) History of marijuana use (Acute) Obesity affecting (Acute) Unstable lie of fetus (Acute) Subjective: Doing well per patient. Bottle feeding. Ambulating and taking PO without difficulty. Denies any issues with voiding, having BM. 911 emergency services dispatcher involved and working with patient. Per nursing staff patient and partner having some difficulty being attentive to baby. - Physical Exam General: Alert Lungs: Clear to auscultation, No rhonchi, No wheeze Cardiovascular: Regular rate, Regular Rhythm, No murmurs Abdomen: Bowel Sounds Present, - - Fundus firm 2 below U Extremities: No edema, - - Dawson's negative bilaterally Psych/Mental Status: Normal Affect, Appropriate Vital Signs Temp Pulse Resp BP Pulse Ox 97.6 F L 102 H 16 119/56 L 99 12/01/17 07:37 12/01/17 07:37 12/01/17 07:37 12/01/17 07:37 12/01/17 07:37 Oxygen Delivery Method Room Air Weight: 247 lb 4 oz Body Mass Index (BMI) 41.1 Finger Stick Blood Glucose 147 Intake and Output for Last 24 Hours 11/29/17 11/30/17 12/01/17 23:59 23:59 23:59 Intake Total 3300 / 3300 4374 / 4374 Output Total 600 / 600 1999 / 1999 Balance 2700 / 2700 2374 / 2374 Laboratory Tests Past 24 Hrs 12/01/17 06:20 WBC 10.0 RBC 2.51 L Hgb 7.6 L Hct 23.0 L MCV 91.6 MCH 30.3 MCHC 33.0 RDW 15.3 H RDW Differential 47.5 H Plt Count 139 L MPV 10.4 Immature Gran % (Auto) 0.500 Neut % (Auto) 83.7 H Lymph % (Auto) 9.3 L [place] % (Auto) 5.7 Eos % (Auto) 0.6 Baso % (Auto) 0.2 Absolute Neuts (auto) 8.4 H Absolute Lymphs (auto) 0.93 Total Counted Not Reportable Medical Necessity - Tobacco Use Smoking Status: Former smoker Assessment/Plan Active and Suspected Problems Depression (Acute) Vulvovaginal condyloma (Acute) History of third degree perineal laceration (Acute) History of marijuana use (Acute) Obesity affecting (Acute) Unstable lie of fetus (Acute) A: PPD#1 P: Routine care 911 emergency services dispatcher consulted and has evaluated patient. Would like Nexplanon placement prior to discharge. Continuing Acyclovir for history of HSV
[2017-12-01 13:45] VITALS: BP 120/79; PULSE 111; RESP 18; TEMP 36.4
--- NOTE | 2017-12-01 15:11 | NURSING ---
MISA came to nurses station asking about time of day they might be discharged ginny. This RN explained that pt still needs to still be seen by Social Work before discharge. MISA then stated that his sister had a feeling children services would need to see her too. This RN then stated that would be probable since she has a history with them with her previous children. He then became frustrated and stated that she has no open cases and they shouldn't know about her and asked if this RN was the one who called them. This RN then stated everything would be discussed tomorrow when they are seen by director social service.
[2017-12-01] MEDS: Senna/Docusate Sodium 1 Tablet PO (16:45)
[2017-12-01] MEDS: Naproxen 250 MG Tablet PO (16:45)
[2017-12-01 20:35] VITALS: BP 137/79; PULSE 94; RESP 18; TEMP 36.1
[2017-12-01] MEDS: Etonogestrel 68 MG IMPLANT SQ (21:54)
--- NOTE | 2017-12-01 22:14 | PCM.PN.OB ---
Patient Problems: Active and Suspected Problems Depression (Acute) Vulvovaginal condyloma (Acute) History of third degree perineal laceration (Acute) History of marijuana use (Acute) Obesity affecting (Acute) Unstable lie of fetus (Acute) Subjective: Requesting Nexplanon insertion until tubal ligation can be done. Objective: Consent form reviewed and signed. Discussed risks, benefits, MOA, and insertion procedure. Left arm positioned. Cleansed with Betadine. 1% Lidocaine injected into arm. Nexplanon inserted without difficulty. Patient tolerated well. Steri strips applied with pressure dressing. - Physical Exam Vital Signs Temp Pulse Resp BP Pulse Ox 97.5 F L 111 H 18 120/79 99 12/01/17 13:45 12/01/17 13:45 12/01/17 13:45 12/01/17 13:45 12/01/17 07:37 Oxygen Delivery Method Room Air Weight: 247 lb 4 oz Body Mass Index (BMI) 41.1 Finger Stick Blood Glucose 147 Intake and Output for Last 24 Hours 11/29/17 11/30/17 12/01/17 23:59 23:59 23:59 Intake Total 3300 / 3300 4374 / 4374 Output Total 600 / 600 1999 / 2000 Balance 2700 / 2700 2374 / 2374 Laboratory Tests Past 24 Hrs 12/01/17 06:20 WBC 10.0 RBC 2.51 L Hgb 7.6 L Hct 23.0 L MCV 91.6 MCH 30.3 MCHC 33.0 RDW 15.3 H RDW Differential 47.5 H Plt Count 139 L MPV 10.4 Immature Gran % (Auto) 0.500 Neut % (Auto) 83.7 H Lymph % (Auto) 9.3 L [place] % (Auto) 5.7 Eos % (Auto) 0.6 Baso % (Auto) 0.2 Absolute Neuts (auto) 8.4 H Absolute Lymphs (auto) 0.93 Total Counted Not Reportable Medical Necessity - Tobacco Use Smoking Status: Former smoker Assessment/Plan Active and Suspected Problems Depression (Acute) Vulvovaginal condyloma (Acute) History of third degree perineal laceration (Acute) History of marijuana use (Acute) Obesity affecting (Acute) Unstable lie of fetus (Acute) A: Nexplanon insertion P: 1) Reviewed removing pressure dressing in 24hr. 2) Discussed risks and warning signs with Nexplanon
[2017-12-02 02:30] VITALS: BP 121/76; PULSE 88; RESP 16; TEMP 36.2
[2017-12-02 04:52] LABS: Absolute Lymphocyte Count 2.25 X10^3/ul (0.83-4.51); Absolute Neutrophil Count 4.8 X10^3/uL (2.0-7.7); Basophil# 0.02 X10^3/uL; Basophil% 0.2 % (0-1); Eosinophil# 0.26 X10^3/uL; Eosinophils% 3.1 % (0-5); Hematocrit 22.7 % (37-47); Hemoglobin 7.4 g/dl (12.0-15.0); Lymphocyte # 2.25 X10^3/ul (4.0); Lymphocyte % 26.8 % (19-41); Mean Corp Hgb Conc 32.6 g/gl (32-36); Mean Corpuscular Hgb 30.2 pg (27.0-32.0); Mean Corpuscular Volume 92.7 fL (81-99); Mean Platelet Vol. 9.9 fl (6.2-12.0); Monocyte# 0.94 X10^3/uL; Monocyte% 11.2 % (0-10); Neutrophil # 4.78 X10^3/uL (2.7-7.7); Neutrophil % 57.1 % (47-70); Platelet Count 150 K/mm3 (150-450); RBC Distribution Width CV 15.5 % (11.6-14.6); RBC Distribution Width SD 49.3 fl (35.1-43.9); Red Blood Count 2.45 M/mm3 (4.2-5.4); White Blood Count 8.4 K/mm3 (4.4-11.0)
[2017-12-02 05:05] LABS: POSITIVE COUNT NO; POSITIVE DIFFERENTIAL NO; POSITIVE MORPHOLOGY NO
--- NOTE | 2017-12-02 08:45 | PCM.DCVAG ---
Discharge Diet: No Restrictions Discharge Activity: Return to Normal Activity, May not drive while taking narcotic pain medications., May Shower May resume sexual activity in: 4-6 weeks Additional Activity Instructions:: Nothing in the vagina for 4-6 weeks. You may return to work/school in 6 weeks. Call your doctor if your incision/area has: Continuous Slow Oozing, Sudden Increased Bleeding, Increased Pain/ Swelling, Increased Redness, Foul Smelling Discharge Call your doctor if you observe: Fever of 101 or Higher, Inability to urinate, Inability to have a bowel movement, Using more than one pad per hour Additional Instructions: If you experience any of the following, contact your healthcare provider. Bleeding that soaks a pad every hour for 2 hours Fever 100.4 or higher Unrelieved incision or abdominal pain Swelling, redness, discharge or bleeding from your incision or episiotomy site Your incision begins to separate Problems urinating (including inability to urinate or burning while urinating). Visual changes Severe headache Flu-like symptoms Pain or redness in one of both of your breasts Pain, warmth, tenderness or swelling in your legs, especially the calf area Frequent nausea and vomiting Symptoms of depression or anxiety If you experience any of the following, call 911 or go to the nearest Emergency Room. Chest pain Problems breathing Seizure activity Partial or complete paralysis of a body part, slurred speech, weakness or drooping of the face, or a sudden inability to walk or hold your balance Allergies/Adverse Reactions: Allergies raspberry Allergy (Verified 11/22/17 22:45) Unknown vaccine adjuvant emulsion MF59C.1 Allergy (Verified 11/22/17 22:45) Unknown Medications to take at Discharge Acyclovir 400 mg PO BID 11/22/17 Prenatabs FA 1 tab PO DAILY 11/24/17 When: Call to make an appointment with your doctor in 4-5 weeks. Please schedule this with a doctor so they can schedule you for your Tubal Ligation. Primary Care Physician: Emil Montez III, MD [Primary Care Provider] - Proposed Discharge Date: 12/02/17
--- NOTE | 2017-12-02 08:49 | DCINST_ITS ---
Discharge Diet: No Restrictions Discharge Activity: Return to Normal Activity, May not drive while taking narcotic pain medications., May Shower May resume sexual activity in: 4-6 weeks Additional Activity Instructions:: Nothing in the vagina for 4-6 weeks. You may return to work/school in 6 weeks. Call your doctor if your incision/area has: Continuous Slow Oozing, Sudden Increased Bleeding, Increased Pain/ Swelling, Increased Redness, Foul Smelling Discharge Call your doctor if you observe: Fever of 101 or Higher, Inability to urinate, Inability to have a bowel movement, Using more than one pad per hour Additional Instructions: If you experience any of the following, contact your healthcare provider. * Bleeding that soaks a pad every hour for 2 hours * Fever 100.4 or higher * Unrelieved incision or abdominal pain * Swelling, redness, discharge or bleeding from your incision or episiotomy site * Your incision begins to separate * Problems urinating (including inability to urinate or burning while urinating) . * Visual changes * Severe headache * Flu-like symptoms * Pain or redness in one of both of your breasts * Pain, warmth, tenderness or swelling in your legs, especially the calf area * Frequent nausea and vomiting * Symptoms of depression or anxiety If you experience any of the following, call 911 or go to the nearest Emergency Room. * Chest pain * Problems breathing * Seizure activity * Partial or complete paralysis of a body part, slurred speech, weakness or drooping of the face, or a sudden inability to walk or hold your balance Allergies/Adverse Reactions: Allergies raspberry Allergy (Verified 11/22/17 22:45) Unknown vaccine adjuvant emulsion MF59C.1 Allergy (Verified 11/22/17 22:45) Unknown Medications to take at Discharge Acyclovir 400 mg PO BID 11/22/17 Prenatabs FA 1 tab PO DAILY 11/24/17 When: Call to make an appointment with your doctor in 4-5 weeks. Please schedule this with a doctor so they can schedule you for your Tubal Ligation. Primary Care Physician: Emil Montez III, MD [Primary Care Provider] - Proposed Discharge Date: 12/02/17
--- NOTE | 2017-12-02 08:50 | PCM.PN.BLA ---
Progress Note S: Patient sitting at bedside with FOB, soothing baby at this time. Patient and FOB report that they currently are living with FOB sister and have everything all set up for the baby. Patient reports no issues at this time. Denies pain or issues with ambulation or urination. O: VSS, Afebrile. Rpt Hgb = 7.5. Nipples without cracks, no erythema, breasts soft. Patient has chosen to bottle feed Abdomen NT x 4 quadrants, FF midline 1FB below umbilicus +2/4 reflexes in LE, no edema, negative calf tenderness Perineum well approximated A: 27 y/o s/p PPD #2, Asymptomatic Anemia P: 1) Discharge to home 2) discharge pending SW consult and peds visit 3) RTC in 4-5 weeks for visit with MD for pre-op visit. Hillary Layne CNM
[2017-12-02 08:55] VITALS: BP 130/70; PULSE 100; RESP 18; TEMP 36.3; O2SAT 98
[2017-12-02] MEDS: Ferrous Sulfate 325 MG Tablet PO (08:56)
--- NOTE | 2017-12-02 09:15 | CASEMGMT ---
Social Work Note Labor and Delivery Unit Chart reviewed and noted 12-01-17 nursing documentation of Kaylie Cooper RN, indicating father of baby (FOB) and mother of baby (MOB) requiring assist/education on soothing and consoling baby, as well as RN observing neither parent taking an active role in soothing baby when baby was crying loudly. Also noted comment by FOB regarding not being able to sleep due to staff and baby wanting to be held. Noted also in a patient rounding note on 12-01-17 at 1999, from Yajaira Jones RN, indicating Father of baby (FOB) made comment regarding the baby being sexy when the RN was in room to get babys weight; RN documented statement of FOB as look at that naked sexy thing in regards to the baby. Call to [facility] ([facility]) for referral. Spoke with Padmaja Dhillon in the intake department, , extension [phone]. Referral due to: mother of baby (MOB) past history with [facility] and removal of first two children from MOBs custody MOBs reports of marijuana and meth use early in , positive drug screen the end of April for marijuana, and MOBs reports of last usage not correlating with positive drug screen results. concern due to MOBs history of mental health, not currently in treatment including no medications, as well as MOB declining social worker delinquency prevention to make mental health follow up for MOB. concern about alleged number of people in the home and MOB's multiple living situations over the last year. concern about inappropriate comments the FOB has been observed making in front of nursing staff, as well as FOB also reportedly having history of drug use. concerns about MOB and FOB seeming to have a difficulty consoling infant and needing much reinforcement in caring for baby on 12-01-17. also let [facility] know that MOB and baby urine toxicology screens negative at delivery; meconium is pending. Padmaja took this insurance underwriter sales's number and reports will call with an update on [facility] intentions for this family, as soon as intentions are known. Informed Padmaja that MOB and baby would be ready for discharge today. Plan: follow up with MOB and FOB today. Await response from [facility]. -ANGEL Le, HOUSING PROJECT MANAGER
[2017-12-02] MEDS: Acyclovir 200 MG Capsule 400 MG PO (09:55)
--- NOTE | 2017-12-02 11:55 | CASEMGMT ---
Addendum entered and electronically signed by Rosaura Wiseman 12/02/17 16:52: SW note - need to include in original note that MOB's idea for a safety plan was to go to [facility]. sound installation worker suggested MOB call the group home to see if there is even any room right now. MOB voiced agreement. sound installation worker also encouraged MOB to call [facility] as well. malcom ORTIZ Original Note: Social Work Note Labor and Delivery Unit Met with mother of baby (MOB) to discuss MOB's reported worries about possible removal of infant by children services. MOB reports to be doing good right now, that MOB and father of baby (FOB) are using a log to track feedings and diapers. MOB reports is wondering what will be happening with children services. MOB reports that previous [facility] ([facility]) worker reportedly told MOB that [facility] would give MOB a chance with this baby. MOB reports called and got WIC appointment for Saturday (12-04-17) at 1430. MOB reports has chosen Dr. Brizuela as the tube drawing supervisor but has not gotten an appointment yet. MOB reports to have all needed supplies for baby to get started, except for formula but that's what [facility] is for. This editorial writer asked MOB how MOB will cover formula until Saturday. MOB reports would use the food card. At this juncture [facility] Padmaja Dhillon and Margie Brown arrived to the MOB's room for interview. This editorial writer remained present during MOB's conversation with [facility], after asking MOB what MOB prefers. During MOB's conversation with [facility], this editorial writer noted that MOB seems to have a hard time with timeframes, as evidenced by MOB asking if the ninth month is May. MOB also indicating that had not used any drugs at all during , but admitted to a positive drug screen in May of last year. MOB had to be reminded that MOB was last year and that this drug screen was during . MOB reports there has been no further drug use since that one drug screen. MOB reports willingness to get back into [facility] for medication and counseling. MOB admitted to ceasing medications due to weight gain, and endorsed using marijuana to deal with stress. During [facility] visit MOB called FOB and also FOB's sister Alma Delia, as [facility] informed MOB of need to go out to the home to check on what is in place for baby. [facility] and MOB inquired when baby may be discharged. This editorial writer explained to MOB that to be upfront, hospital really needs to hear recommendations of CS after home visit. After [facility] returned to MOB's room to ask about whether MOB can think of any person for a safety plan if [facility] recommends this, as CS did not get to talk to MOB about this prior to leaving for home visit. MOB on phone when social service director entered the room, talking to MISA Bobo. MOB gave the phone to this editorial writer, stating it is okay to talk to FOB, that FOB wants to talk to this editorial writer. FOB introduced self and indicated that had questions for this editorial writer. FOB asked if FOB smoking weed once in a blue alvarado would hurt FOB's case with the baby. Educated FOB that marijuana is a concern, but this alone does not necessarily mean a baby would be removed, it may mean parenting classes, drug and alcohol assessments, and supportive services. Educated FOB that if there are other concerns, in addition to the marijuana, then this could make a bigger impact on final decision. Explained that CS looks at the big picture, overall concerns, when making recommendations for level of involvement. FOB expressed that understands what social service director said. FOB then spontaneously disclosed that does not use other drugs other than marijuana, but does sometimes drink alcohol. FOB reports has just been at the restaurant [employer] having lunch with a friend, catching, celebrating about baby Vivek, and had a lopez beer. FOB reports that only had one beer, that thought about limits and needing to make sure safe for baby. FOB reports that wanted to tell this editorial writer as staff may smell alcohol on FOB. This editorial writer thanked FOB for letting this editorial writer know and suggested that FOB not be holding baby if substances are in FOB's system while at the hospital. Updated tube drawing supervisor. Plan: Social work to follow. Await input from [facility]. -ANGEL Le, SPECIAL SERVICES SUPERVISOR
[2017-12-02] MEDS: Acetaminophen 500 MG Tablet 1000 MG PO (12:56)
[2017-12-02 13:39] VITALS: BP 127/73; PULSE 91; RESP 18; TEMP 36.4; O2SAT 99
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
== END 2017-12-02 15:55 | disposition home or self-care (01) | DRG 372 ==
PROVIDERS: Advanced Practice Midwife; Admitting Provider Obstetrics & Gynecology; Family Provider Family Medicine; PCP Family Medicine; Visit Provider Obstetrics & Gynecology
DX: O32.0XX0 Maternal care for unstable lie, not applicable or unspecified (principal); O98.32 Other infections with a predominantly sexual mode of transmission complicating childbirth; A63.0 Anogenital (venereal) warts; A60.00 Herpesviral infection of urogenital system, unspecified; O99.214 Obesity complicating childbirth; Z68.41 Body mass index [BMI] 40.0-44.9, adult; O70.0 First degree perineal laceration during delivery; O76 Abnormality in fetal heart rate and rhythm complicating labor and delivery; Z87.891 Personal history of nicotine dependence; Z3A.39 39 weeks gestation of pregnancy; Z37.0 Single live birth
CPT/HCPCS: 36415; 59025; 59050; 76815; 80053; 80307; 84550; 85025; 85027; 86850; 86900; 99218; J7050; J7120; G0378

== ENCOUNTER 2018-04-17 11:51 | Day surgery (SDC) | payer MEDICAID, SELFPAY ==
[2018-04-17] VITALS (7 sets, daily range): BP systolic 131–148; BP diastolic 67–98; PULSE 56–98; RESP 14–20; TEMP 35.8–37.3; O2SAT 98–100; BMI 38.2
[2018-04-17 12:17] LABS: Internal QC Validated? YES +Cl - CLEAR BKGD; Pregnancy, Urine Negative Negative
--- NOTE | 2018-04-17 14:14 | DCINST_ITS ---
Discharge Diet: No Restrictions, - - Increase fluid intake for 48 hours. Discharge Activity: Return to Normal Activity, May Drive - when you are no longer taking narcotic pain medications., May Shower, May Take a Tub Bath - in 7 days., - - Ambulate often the next week after surgery. May resume sexual activity in: 2 weeks Lifting Restrictions: 25 Additional Activity Instructions:: Nothing in the vagina for the next 5 days. Call your doctor if your incision/area has: Continuous Slow Oozing, Sudden Increased Bleeding, Increased Pain/ Swelling, Increased Redness, Foul Smelling Discharge, Swelling at the incision site Call your doctor if you observe: Fever of 101 or Higher Allergies/Adverse Reactions: Allergies vaccine adjuvant emulsion MF59C.1 Allergy (Severe, Verified 04/17/18 12:26) ALMOST SHOT I GOT WHEN I WAS [age]. raspberry Allergy (Verified 04/17/18 12:26) Hives Medications to take at Discharge Acyclovir [Zovirax] 400 mg PO BID 04/10/18 Ibuprofen [Motrin] 800 mg PO Q8H PRN PRN #30 tab 04/17/18 Oxycodone HCl/Acetaminophen [Percocet 5/325] 1 tablet PO Q6H PRN PRN 3 Days #5 tablet 04/17/18 The following prescriptions were given: Oxycodone HCl/Acetaminophen [Percocet 5/325] 1 tablet PO Q6H PRN PRN 3 Days #5 tablet PRN Reason: Pain Ibuprofen [Motrin] 800 mg PO Q8H PRN PRN #30 tab PRN Reason: Pain Primary Care Physician: Emil Montez III, MD [Primary Care Provider] - Test Results: Test results from this visit will be discussed in further detail at your follow- up appointment, if applicable.
--- NOTE | 2018-04-17 14:20 | FALS_PTH ---
PATIENT: THEODORE ORTIZ LOC: [facility] U#:[id number] AGE/SX: 28/F ROOM: RE04/17/[address]: Dr. Sita Wilson, MDDOB: 1990 BED: DIS: 04/17/2018 SPEC #: [id number] RECD: 04/18/18 09:09 STATUS: JIGNESH RETom #: [id number] ELVIRA: 04/17/18 14:[address]: Sita Wilson DEPT: SURGICAL PATHOLOGY RECD BY: Amari Brush ENTERED: 04/18/18 11:13 SP TYPE: FALL TUBES OTHR DR: MD Emil Adam III, III, MD Tissues: Fallopian tube Procedures: Surgery Specimen Level II HEADER OPERATION: Laparoscopic bilateral salpingectomy PRE-OP DIAGNOSIS: Desired sterilization TISSUE SUBMITTED: Bilateral fallopian tubes MICROSCOPIC DIAGNOSIS Right and left fallopian tubes, bilateral salpingectomies: Two complete segments of fallopian tubes with no pathologic change. MIGUEL:giuseppe 04/21/18 MICROSCOPIC DESCRIPTION Slides are reviewed. GROSS DESCRIPTION Received is one container labeled with the patient's name and designated bilateral fallopian tubes. The specimen consists of bilateral fallopian tubes including fimbrial ends. The fallopian tubes are not identified as right or left. One of the fallopian tubes measures 4.5 cm in length and 0.6 cm in diameter. The second fallopian tube measures 5.5 cm in length and 0.6 cm in diameter. Sections of both fallopian tubes reveal unremarkable cut surfaces. Talent Sourcer sections are submitted in two cassettes with each cassette containing one fallopian tube. / MIGUEL:giuseppe 04/18/18 TC:5 CPT: 29847 x2
[2018-04-17] MEDS: Bupivacaine Mpf 0.5% 30 ML VIAL (14:56)
--- NOTE | 2018-04-17 15:03 | PCM.OP.BLANK ---
Operative Report Date of Procedure: 04/17/18 Surgeon: Dr. Sita Wilson Fuel Operator: none Preoperative diagnosis: Sterilization request Procedure performed: Laparoscopic bilateral salpingectomy Postoperative diagnosis: Sterilization request complications: None Estimated blood loss: 15 cc Drains: none Specimens collected: Bilateral tubes Findings: Normal tubes and ovaries bilaterally uterus sounded to approximately 8 cm. anesthesia: general implantable devices: none Operative note: After informed consent was obtained patient was taken to the operating room she was placed in supine position she was given anesthesia. She was then placed in the [facility] stirrups and she was prepped and draped in normal sterile fashion. Bladder was drained prior to the start of procedure approximately 5cc of clear yellow urine was expelled. At this time attention was turned to the vaginal portion where weighted speculum placed at posterior fornix vagina single-tooth tenaculum was used to gently grasp the internal the cervix. uterus was gently sounded to approximately 8cm. Uterine manipulator was placed without difficulty. Legs then placed in parallel with the abdomen the tenaculum and the weighted speculum were removed. 2 towel clamps were placed superior to umbilicus. After Marcaine was injected superior to umbilicus a small incision was made and a 5 mm trocar was placed under direct visualization. unable to obtain proper placement secondary to large panus and previous surgerical scars- OG tube placed and Left upper quadrant port placed without difficulty in the same maner with extra long 5mm trochar. CO2 gas was used to insufflate the intra-abdominal cavity. Upon inspection no gross abnormalities uterus tubes and ovaries appeared to be normal. At this time then the LLQ port was placed again Marcaine was injected small incision was made a knife and the 5 mm trocar was placed. Alligator clamp was then placed suparpubically. At this time then tubes were traced back to the fimbriated ends. Ligasure was used to coagulate and ligate along mesosalpynx bilaterally until tubes removed completely. Good hemostasis was appreciated. At this time procedure was deemed complete successful. The gas was desufflated on from the intra-abdominal cavity. The trochars were removed. Skin was closed using 4-0 Monocryl in a subcutaneous fashion. Dermabond glue was placed. Instrument lap and needle counts were correct ?2. The uterine manipulator was removed. Vaginal sweep was performed it was negative. There were no complications anticipated normal postoperative course for this patient.
--- NOTE | 2018-04-17 15:06 | OP.PCM_ITS ---
Operative Report Date of Procedure: 04/17/18 Surgeon: Dr. Sita Wilson Customs Appraiser: none Preoperative diagnosis: Sterilization request Procedure performed: Laparoscopic bilateral salpingectomy Postoperative diagnosis: Sterilization request complications: None Estimated blood loss: 15 cc Drains: none Specimens collected: Bilateral tubes Findings: Normal tubes and ovaries bilaterally uterus sounded to approximately 8 cm. anesthesia: general implantable devices: none Operative note: After informed consent was obtained patient was taken to the operating room she was placed in supine position she was given anesthesia. She was then placed in the [facility] stirrups and she was prepped and draped in normal sterile fashion. Bladder was drained prior to the start of procedure approximately 5cc of clear yellow urine was expelled. At this time attention was turned to the vaginal portion where weighted speculum placed at posterior fornix vagina single -tooth tenaculum was used to gently grasp the internal the cervix. uterus was gently sounded to approximately 8cm. Uterine manipulator was placed without difficulty. Legs then placed in parallel with the abdomen the tenaculum and the weighted speculum were removed. 2 towel clamps were placed superior to umbilicus. After Marcaine was injected superior to umbilicus a small incision was made and a 5 mm trocar was placed under direct visualization. unable to obtain proper placement secondary to large panus and previous surgerical scars- OG tube placed and Left upper quadrant port placed without difficulty in the same maner with extra long 5mm trochar. CO2 gas was used to insufflate the intra-abdominal cavity. Upon inspection no gross abnormalities uterus tubes and ovaries appeared to be normal. At this time then the LLQ port was placed again Marcaine was injected small incision was made a knife and the 5 mm trocar was placed. Alligator clamp was then placed suparpubically. At this time then tubes were traced back to the fimbriated ends. Ligasure was used to coagulate and ligate along mesosalpynx bilaterally until tubes removed completely. Good hemostasis was appreciated. At this time procedure was deemed complete successful. The gas was desufflated on from the intra-abdominal cavity. The trochars were removed. Skin was closed using 4-0 Monocryl in a subcutaneous fashion. Dermabond glue was placed. Instrument lap and needle counts were correct ?2. The uterine manipulator was removed. Vaginal sweep was performed it was negative. There were no complications anticipated normal postoperative course for this patient.
== END 2018-04-17 16:42 | disposition home or self-care (01) ==
LOC: SDC 11:52 → AC 11:54
PROVIDERS: Family Provider Family Medicine; PCP Family Medicine; Visit Provider Obstetrics & Gynecology
PROC: (CPT 58661; principal; 2018-04-17 14:05)
DX: Z30.2 Encounter for sterilization (principal); I10 Essential (primary) hypertension; D64.9 Anemia, unspecified; F31.9 Bipolar disorder, unspecified; F41.9 Anxiety disorder, unspecified; Z87.891 Personal history of nicotine dependence
CPT/HCPCS: 58661; 81025; 88302; J7120; J2405

== ENCOUNTER → 2018-08-18 14:58 | Outpatient (CLI) | payer MEDICAID, SELFPAY ==
--- NOTE | 2018-08-18 15:04 | US_ITS ---
STUDY: SUPERFICIAL ULTRASOUND - LEFT UPPER EXTREMITY. REASON FOR EXAM: Female, 28 years old. Left upper medial arm -control implant, uncertain location. TECHNIQUE: A superficial ultrasound was performed with real-time and static prado-scale imaging. COMPARISON: None. FINDINGS: Limited images from real-time sonography of the left upper extremity were performed. There is a linear, shadowing hyperechoic finding measuring 3.5 cm in length, identified 4 mm deep to the skin surface identified in the medial upper arm. This is consistent with reported control implant. Prevention Specialist reports this is palpable. US/Ext Non Vasc Limited/Soft Tiss IMPRESSION: Findings consistent with presence of left upper extremity implant in the medial arm. Electronically Signed: Valeria Moreau MD at 16:19 EST Tel , Service support ,
== END ==
PROVIDERS: Family Provider Family Medicine; PCP Family Medicine; Referring Provider Obstetrics & Gynecology; Visit Provider Obstetrics & Gynecology
DX: T85.9XXA Unspecified complication of internal prosthetic device, implant and graft, initial encounter (principal)
CPT/HCPCS: 76882

== ENCOUNTER 2024-09-06 20:21 | Emergency (ER) | payer MEDICAID, SELFPAY ==
[2024-09-06 20:22] VITALS: BP 166/104; PULSE 99; RESP 18; TEMP 36.8; O2SAT 97; BMI 40.4
[2024-09-06 20:26] VITALS: BP 166/104; PULSE 98; RESP 18; TEMP 36.8; O2SAT 99
--- NOTE | 2024-09-06 20:29 | EX.ED.GENINJ ---
HPI <Dr. Mac Raymundo DO - Last Filed: 09/06/24 22:01> History of Present Illness Chief Complaint: Nausea/Vomiting/Diarrhea PFS <Dr. Mac Raymundo, DO - Last Filed: 09/06/24 22:01> [facility] Medical History (Updated 09/06/24 @ 23:[address] Sheldon Grajeda DO) Seizure Hypertension Home Medications ?Medication ?Instructions ?Recorded ?Last Taken ?Type acyclovir 400 mg tablet (Zovirax) 400 mg PO BID 04/10/18 04/16/18 History ibuprofen 400 mg tablet 800 mg (2 x 400 mg) PO Q8H PRN PRN 04/17/18 Unknown Rx Pain #30 tabs oxycodone-acetaminophen 5 mg-325 1 tab PO Q6H PRN PRN Pain 3 days 04/17/18 Unknown Rx mg tablet ##5 mirtazapine 30 mg tablet 30 mg PO QHS 09/06/24 Unknown History ondansetron 4 mg disintegrating 4 mg PO Q8H PRN PRN Nausea #10 tabs 09/06/24 Unknown Rx tablet Allergy/AdvReac Type Severity Reaction Status Date / Time vaccine adjuvant emulsion Allergy Severe ALMOST Verified 04/17/18 12:26 [id number] raspberry Allergy Hives Verified 04/17/18 12:26 Social History Smoking Status: Current every day smoker tobacco type: e-cigarettes EXAM <Dr. Mac Raymundo, DO - Last Filed: 09/06/24 22:01> Physical Exam Const Vital Signs: 09/06/24 20:22 09/06/24 20:26 09/06/24 21:30 Temperature 98.3 F 98.3 F 98.5 F Temperature Source Tympanic Oral Oral Pulse Rate 99 98 92 Respiratory Rate 18 18 18 Blood Pressure 166/104 H 166/104 H 163/106 H Blood Pressure Mean 124 124 125 Pulse Ox 97 99 98 Oxygen Delivery Method Room Air Room Air Room Air 09/06/24 22:00 09/06/24 23:00 Temperature 98.5 F 98.4 F Temperature Source Oral Oral Pulse Rate 94 98 Respiratory Rate 18 18 Blood Pressure 170/95 H 152/99 H Blood Pressure Mean 120 116 Pulse Ox 96 96 Oxygen Delivery Method Room Air Room Air <Dr. Sheldon Grajeda, DO - Last Filed: 09/06/24 23:48> Physical Exam Const Vital Signs: 09/06/24 20:22 09/06/24 20:26 09/06/24 21:30 Temperature 98.3 F 98.3 F 98.5 F Temperature Source Tympanic Oral Oral Pulse Rate 99 98 92 Respiratory Rate 18 18 18 Blood Pressure 166/104 H 166/104 H 163/106 H Blood Pressure Mean 124 124 125 Pulse Ox 97 99 98 Oxygen Delivery Method Room Air Room Air Room Air 09/06/24 22:00 09/06/24 23:00 Temperature 98.5 F 98.4 F Temperature Source Oral Oral Pulse Rate 94 98 Respiratory Rate 18 18 Blood Pressure 170/95 H 152/99 H Blood Pressure Mean 120 116 Pulse Ox 96 96 Oxygen Delivery Method Room Air Room Air [facility] <Dr. Mac Raymundo, DO - Last Filed: 09/06/24 22:01> [facility] Narrative Medical decision making narrative: HISTORY OF PRESENT ILLNESS: 34-year-old female presents with abdominal pain nausea vomiting diarrhea. No she has had chronic diarrhea since 2018. She denies any vomiting to me. She notes abdominal pain that starts in the right upper abdomen and radiates to the left mid abdomen. No she had history of cholecystectomy. Denies fever. Denies hematemesis melena hematochezia. Denies any urinary complaints. No she is on her period at this time. Denies any vaginal discharge. In terms of syncope. She states she felt lightheaded on the toilet having a bowel movement but denies actually losing consciousness. Denies any chest pain, shortness of breath, palpitations prior to this event. Denies history of similar. Denies cocaine or methamphetamine abuse. The patient denies recent surgery in the last 4 weeks or immobilization in the last 3 days, denies previous diagnosis of DVT or PE, hemoptysis, unilateral leg swelling or malignancy with treatment the last 6 months or palliative. No estrogen use noted. REVIEW OF SYSTEMS: Pertinent positives: Abdominal pain, nausea, diarrhea, vaginal bleeding, lightheadedness, near-syncope Pertinent negatives: Vomiting PHYSICAL EXAM: Nursing triage notes reviewed, Vital signs reviewed Constitutional: please see mdm HENT: MMM Eyes: Pupils equal round and reactive to light, Extraocular muscles intact Neck: No stridor, no JVD, full neck ROM Lungs: Clear to auscultation, No wheezing or rales. No increased work of breathing, no conversational dyspnea, no accessory muscle use, no nasal flaring. No respiratory distress noted Heart: Regular rate and rhythm, No murmurs, No rubs and No gallops, 2+ distal pulses (radial, femoral, posterior tibial) in all extremities Abdomen: Soft, there is no tenderness, rigidity, rebound or guarding, no obvious peritoneal signs, no palpable pulsatile abdominal masses, no auscultated abdominal bruit : No CVAT Extremities: No edema Neuro: No new focal neurological deficits, cranial nerves II through XII intact, 5/5 strength in all present extremities. Intact sensation to light touch in all present extremities, 2+ reflexes bilateral patella tendons. Skin: No rash or lesions noted MEDICAL DECISION MAKING: Chief Complaint: Nausea, abdominal pain External records reviewed: Reviewed prior imaging of the abdomen. CT scan of the abdomen pelvis from 2016 shows nonobstructing calculi, hepatic steatosis, umbilical hernia, right adnexal tissue Factors affecting care: Hypertension Social determinants of health: Denies alcohol abuse, smoking History obtained from others: none Consults: none MDM Narrative: The patient was initially hypertensive with a blood pressure 166/104, otherwise afebrile and nontoxic-appearing. Abdominal exam was benign. I initially treat the patient with 1 L normal saline and Zofran for nausea control. I considered the following differential diagnosis: AAA, small bowel obstruction, abdominal perforation, appendicitis, pancreatitis, hepatobiliary pathology (acute cholecystitis), mesenteric ischemia, pathology (ie nephrolithiasis, pyelonephritis). ALL IMAGES (IF OBTAINED) HAVE BEEN PERSONALLY REVIEWED AND INTERPRETED BY MYSELF. CBC with leukocytosis suggestive of marked systemic inflammation, no anemia or thrombocytopenia noted. Given leukocytosis we will add a CT scan abdomen pelvis to rule out any significant intra-abdominal pathology including acute surgical pathology that would produce leukocytosis. EKG with normal sinus rhythm at a rate of 90, normal axis, normal intervals, QTc 440, no STEMI, no signs of arrhythmia, WPW, ARVD BMP with mild hypokalemia at 3.2, no signs of endorgan hypoperfusion or metabolic acidosis with a normal anion gap and bicarb, no JEAN-PAUL LFTs show no evidence of obstructive hepatobiliary pathology. Lipase is wnl indicating no pancreatic inflammation. High-sensitivity troponin is negative, no evidence of myocardial ischemia Chest x-ray was read reviewed inter by myself showed no evidence of obvious cardiomegaly, pulmonary edema, pneumothorax, pneumonia. Radiologist agrees my interpretation. Urine pending In terms of the patient's lightheadedness and near syncope her EKG is nonischemic, her troponin is negative, her x-ray was read and reviewed myself showed no evidence of cardiomegaly or pulmonary edema or other focal cardiopulmonary abnormality including pneumonia. I suspect this was a vagal event in nature. I do not suspect patient suffering from a focal cardiopulmonary emergency such as ACS, arrhythmia anemia or electrolyte disturbance, VTE as a cause of her symptoms. Likely secondary to dehydration versus severe intra-abdominal pathology. Signed out to p.m. physician pending urinalysis, urine test, CT scan abdomen pelvis and final disposition. The patient and/or family, caregivers express understanding. The patient and/or family, caregivers agrees with the plan. Shared decision making: I will have a discussion with the patient and or visitors regarding risk/benefits of further testing or admission. They will be made aware of of the risk/benefits inherent in this decision they will be given the opportunity to voice understanding. Total critical care time today provided was at least 0 minutes. This excludes separately billable procedures. Critical care time (if documented) is secondary to the patient having high probability of clinically significant/life threatening deterioration in the patient's condition which required my urgent intervention. Impression: 1. Nausea 2. Acute on chronic abdominal pain 3. Chronic diarrhea 4. Hypokalemia Dispo: Final dispo pending CT scan of the abdomen pelvis This note was generated with Echolocation dictation software. It may contain incorrect words, spelling, and punctuation that were not noted in review of the chart prior to signing. Lab Data Labs: Laboratory Results - last 24 hr 09/06/24 09/06/24 20:29 21:42 WBC 19.0 H RBC 5.07 Hgb 15.2 H Hct 44.8 MCV 88.4 MCH 30.0 MCHC 33.9 RDW Std Deviation 43.1 RDW Coeff of Yasemin 13.3 Plt Count 335 MPV 8.9 Sodium 138 Potassium 3.2 L Chloride 102 Carbon Dioxide 26.0 Anion Gap 10 BUN 13 Creatinine 0.89 Estim Creat Clear Calc 106.16 Est GFR (MDRD) Af Amer 93 Est GFR (MDRD) Non-Af 77 BUN/Creatinine Ratio 14.5 Glucose 102 Calcium 9.4 Total Bilirubin 1.00 AST 27 ALT 37 Alkaline Phosphatase 79 Troponin I High Sens 8 Total Protein 7.9 Albumin 4.0 Globulin 3.9 Albumin/Globulin Ratio 1.0 Lipase 30 Urine Color Yellow Urine Clarity Cloudy Urine pH 6.0 Ur Specific [place] 1.025 Urine Protein 100 H Urine Glucose (UA) Normal Urine Ketones Negative Urine Occult Blood 250 H Urine Nitrite Negative Urine Bilirubin Negative Urine Urobilinogen Normal Ur Leukocyte Esterase 500 H Urine RBC > 100 SEEN Urine WBC 25-50 SEEN Ur Squamous Epith Cells 5-10 SEEN Urine Bacteria 3+ Urine Mucus RARE Urine Test Negative Radiography Diagnostic Testing: Clinical Impression(s) from Imaging Studies Chest X-Ray 09/06/24 20:30 IMPRESSION: No radiographic evidence of acute cardiopulmonary disease. Electronically Signed: Nima Francis MD at 21:35 EST , Abdomen/Pelvis CT 09/06/24 21:00 IMPRESSION: Fluid-filled loops of large and small bowel which may represent enteritis with incipient diarrhea. No other acute abnormalities are identified. Electronically Signed: Nima Francis MD at 23:07 EST , <Dr. Sheldon Grajeda, DO - Last Filed: 09/06/24 23:48> [facility] Narrative Medical decision making narrative: HISTORY OF PRESENT ILLNESS: 34-year-old female presents with abdominal pain nausea vomiting diarrhea. No she has had chronic diarrhea since 2018. She denies any vomiting to me. She notes abdominal pain that starts in the right upper abdomen and radiates to the left mid abdomen. No she had history of cholecystectomy. Denies fever. Denies hematemesis melena hematochezia. Denies any urinary complaints. No she is on her period at this time. Denies any vaginal discharge. In terms of syncope. She states she felt lightheaded on the toilet having a bowel movement but denies actually losing consciousness. Denies any chest pain, shortness of breath, palpitations prior to this event. Denies history of similar. Denies cocaine or methamphetamine abuse. The patient denies recent surgery in the last 4 weeks or immobilization in the last 3 days, denies previous diagnosis of DVT or PE, hemoptysis, unilateral leg swelling or malignancy with treatment the last 6 months or palliative. No estrogen use noted. REVIEW OF SYSTEMS: Pertinent positives: Abdominal pain, nausea, diarrhea, vaginal bleeding, lightheadedness, near-syncope Pertinent negatives: Vomiting PHYSICAL EXAM: Nursing triage notes reviewed, Vital signs reviewed Constitutional: please see mdm HENT: MMM Eyes: Pupils equal round and reactive to light, Extraocular muscles intact Neck: No stridor, no JVD, full neck ROM Lungs: Clear to auscultation, No wheezing or rales. No increased work of breathing, no conversational dyspnea, no accessory muscle use, no nasal flaring. No respiratory distress noted Heart: Regular rate and rhythm, No murmurs, No rubs and No gallops, 2+ distal pulses (radial, femoral, posterior tibial) in all extremities Abdomen: Soft, there is no tenderness, rigidity, rebound or guarding, no obvious peritoneal signs, no palpable pulsatile abdominal masses, no auscultated abdominal bruit : No CVAT Extremities: No edema Neuro: No new focal neurological deficits, cranial nerves II through XII intact, 5/5 strength in all present extremities. Intact sensation to light touch in all present extremities, 2+ reflexes bilateral patella tendons. Skin: No rash or lesions noted MEDICAL DECISION MAKING: Chief Complaint: Nausea, abdominal pain External records reviewed: Reviewed prior imaging of the abdomen. CT scan of the abdomen pelvis from 2016 shows nonobstructing calculi, hepatic steatosis, umbilical hernia, right adnexal tissue Factors affecting care: Hypertension Social determinants of health: Denies alcohol abuse, smoking History obtained from others: none Consults: none [facility] Narrative: The patient was initially hypertensive with a blood pressure 166/104, otherwise afebrile and nontoxic-appearing. Abdominal exam was benign. I initially treat the patient with 1 L normal saline and Zofran for nausea control. I considered the following differential diagnosis: AAA, small bowel obstruction, abdominal perforation, appendicitis, pancreatitis, hepatobiliary pathology (acute cholecystitis), mesenteric ischemia, pathology (ie nephrolithiasis, pyelonephritis). ALL IMAGES (IF OBTAINED) HAVE BEEN PERSONALLY REVIEWED AND INTERPRETED BY MYSELF. CBC with leukocytosis suggestive of marked systemic inflammation, no anemia or thrombocytopenia noted. Given leukocytosis we will add a CT scan abdomen pelvis to rule out any significant intra-abdominal pathology including acute surgical pathology that would produce leukocytosis. EKG with normal sinus rhythm at a rate of 90, normal axis, normal intervals, QTc 440, no STEMI, no signs of arrhythmia, WPW, ARVD BMP with mild hypokalemia at 3.2, no signs of endorgan hypoperfusion or metabolic acidosis with a normal anion gap and bicarb, no JEAN-PAUL LFTs show no evidence of obstructive hepatobiliary pathology. Lipase is wnl indicating no pancreatic inflammation. High-sensitivity troponin is negative, no evidence of myocardial ischemia Chest x-ray was read reviewed inter by myself showed no evidence of obvious cardiomegaly, pulmonary edema, pneumothorax, pneumonia. Radiologist agrees my interpretation. Urine pending In terms of the patient's lightheadedness and near syncope her EKG is nonischemic, her troponin is negative, her x-ray was read and reviewed myself showed no evidence of cardiomegaly or pulmonary edema or other focal cardiopulmonary abnormality including pneumonia. I suspect this was a vagal event in nature. I do not suspect patient suffering from a focal cardiopulmonary emergency such as ACS, arrhythmia anemia or electrolyte disturbance, VTE as a cause of her symptoms. Likely secondary to dehydration versus severe intra-abdominal pathology. Signed out to p.m. physician pending urinalysis, urine test, CT scan abdomen pelvis and final disposition. The patient and/or family, caregivers express understanding. The patient and/or family, caregivers agrees with the plan. Shared decision making: I will have a discussion with the patient and or visitors regarding risk/benefits of further testing or admission. They will be made aware of of the risk/benefits inherent in this decision they will be given the opportunity to voice understanding. Total critical care time today provided was at least 0 minutes. This excludes separately billable procedures. Critical care time (if documented) is secondary to the patient having high probability of clinically significant/life threatening deterioration in the patient's condition which required my urgent intervention. Impression: 1. Nausea 2. Acute on chronic abdominal pain 3. Chronic diarrhea 4. Hypokalemia Dispo: Final dispo pending CT scan of the abdomen pelvis This note was generated with Dragon dictation software. It may contain incorrect words, spelling, and punctuation that were not noted in review of the chart prior to signing. 2340: Le. Patient signed out to me pending CT scan results. She had a leukocytosis of 19. CT scan with normal appendix no acute process noted. Fluid loops small bowel large bowel consistent with concerns for enteritis. She reports chronic diarrhea. No recent antibiotics. She has never seen GI doctor in the past. She report nausea without vomiting since her symptoms. She is feeling better. She had urine with blood leukocytes 3+ bacteria. She is on her menstrual period. She denies dysuria or frequency. Urine culture be sent. Will hold off any treatment unless culture is positive. Prescription for Zofran for nausea. She will continue oral fluids. She is given follow-up with GI. Lab Data Labs: Laboratory Results - last 24 hr 09/06/24 09/06/24 20:29 21:42 WBC 19.0 H RBC 5.07 Hgb 15.2 H Hct 44.8 MCV 88.4 MCH 30.0 MCHC 33.9 RDW Std Deviation 43.1 RDW Coeff of Yasemin 13.3 Plt Count 335 MPV 8.9 Sodium 138 Potassium 3.2 L Chloride 102 Carbon Dioxide 26.0 Anion Gap 10 BUN 13 Creatinine 0.89 Estim Creat Clear Calc 106.16 Est GFR (MDRD) Af Amer 93 Est GFR (MDRD) Non-Af 77 BUN/Creatinine Ratio 14.5 Glucose 102 Calcium 9.4 Total Bilirubin 1.00 AST 27 ALT 37 Alkaline Phosphatase 79 Troponin I High Sens 8 Total Protein 7.9 Albumin 4.0 Globulin 3.9 Albumin/Globulin Ratio 1.0 Lipase 30 Urine Color Yellow Urine Clarity Cloudy Urine pH 6.0 Ur Specific [place] 1.025 Urine Protein 100 H Urine Glucose (UA) Normal Urine Ketones Negative Urine Occult Blood 250 H Urine Nitrite Negative Urine Bilirubin Negative Urine Urobilinogen Normal Ur Leukocyte Esterase 500 H Urine RBC > 100 SEEN Urine WBC 25-50 SEEN Ur Squamous Epith Cells 5-10 SEEN Urine Bacteria 3+ Urine Mucus RARE Urine Test Negative Radiography Diagnostic Testing: Clinical Impression(s) from Imaging Studies Chest X-Ray 09/06/24 20:30 IMPRESSION: No radiographic evidence of acute cardiopulmonary disease. Electronically Signed: Nima Francis MD at 21:35 EST , Abdomen/Pelvis CT 09/06/24 21:00 IMPRESSION: Fluid-filled loops of large and small bowel which may represent enteritis with incipient diarrhea. No other acute abnormalities are identified. Electronically Signed: Nima Francis MD at 23:07 EST , Discharge Plan Triage Chief Complaint: Nausea/Vomiting/Diarrhea ED Provider: Mac Raymundo Dx/Rx/DC Orders Clinical Impression: Abdominal pain, Diarrhea Instructions: Abdominal Pain, ED Diarrhea, Unknown Cause Prescriptions: New ondansetron 4 mg tablet,disintegrating 4 mg PO Q8H PRN PRN (Reason: Nausea) Qty: 10 0RF No Action acyclovir [Zovirax] 400 MG tablet 400 mg PO BID ibuprofen 400 MG tablet 800 mg PO Q8H PRN PRN (Reason: Pain) Qty: 30 0RF oxycodone-acetaminophen 1 TABLET tablet 1 tab PO Q6H PRN PRN (Reason: Pain) 3 Days Qty: 5 0RF mirtazapine 30 mg tablet 30 mg PO QHS Primary Care Provider: Care Physician,No Primary Referrals: Friend,Musa, DO [Med Staff - Active Staff] - 1-2 Weeks Care Physician,No Primary [Primary Care Provider] - Activity Restrictions/Additional Instructions: CT scan with no acute process. Normal appendix. Urine culture sent, you will be called if positive for treatment. Otherwise continue oral fluids for hydration. Use Zofran as needed. Follow-up with gastroenterology with your chronic diarrhea symptoms. Print Language: Macedonian Disposition Disposition: Home, Self Care
--- NOTE | 2024-09-06 20:30 | RAD_ITS ---
EXAM: XR CHEST, 1 VIEW CLINICAL INDICATION: Syncope TECHNIQUE: Frontal view of the chest. COMPARISON: 08/11/2016 FINDINGS: LUNGS AND PLEURAL SPACES: Unremarkable. No consolidation or edema. No pneumothorax. No effusion. HEART: Unremarkable. Cardiac silhouette not enlarged. MEDIASTINUM: Central airways and mediastinal contour are unremarkable. BONES/JOINTS: Unremarkable. No acute fracture. SOFT TISSUES: Unremarkable. RAD/Chest 1 View (Portable) IMPRESSION: No radiographic evidence of acute cardiopulmonary disease. Electronically Signed: Nima Francis MD at 21:35 EST ,
--- NOTE | 2024-09-06 20:30 | EKG12_ITS ---
Test Reason : NAUSEA N V Blood Pressure : */* mmHG Vent. Rate : 90 BPM Atrial Rate : 90 BPM P-R Int : 142 ms QRS Dur : 78 ms QT Int : 360 ms P-R-T Axes : 38 20 42 degrees QTcB Int : 440 ms Normal sinus rhythm Normal ECG Confirmed by ARIS SANZ, BRANDIN ([id number]), editor in chief newspaper BRIAN WISEMAN ([id number]) on 09/07/2024 8:25:29 AM Referred By: ODELL Confirmed By: BRANDNI HURST MD
[2024-09-06] MEDS: 0.9% Normal Saline (1000mL) 1,000 ML 1000 ML IV (20:35)
[2024-09-06] MEDS: Ondansetron 4 MG/2 ML Vial IV (20:35)
[2024-09-06 20:58] LABS: Hematocrit 44.8 % (37-47); Hemoglobin 15.2 g/dL (12.0-15.0); Mean Corp Hgb Conc 33.9 g/dL (32-36); Mean Corpuscular Volume 88.4 fL (81-99); Mean Platelet Vol. 8.9 fl (6.2-12.0); Platelet Count 335 K/mm3 (150-450); RBC Distribution Width CV 13.3 % (11.6-14.6); RBC Distribution Width SD 43.1 fl (35.1-43.9); Red Blood Count 5.07 M/mm3 (4.2-5.4)
--- NOTE | 2024-09-06 21:00 | CT_ITS ---
EXAM: CT ABDOMEN AND PELVIS WITH INTRAVENOUS CONTRAST CLINICAL INDICATION: left sided abdominal pain, n/v/d TECHNIQUE: Helically acquired images were obtained of the abdomen and pelvis with intravenous contrast. This CT exam was performed using one or more of the following dose reduction techniques: automated exposure control, adjustment of the mA and/or kV according to patient size, and/or use of iterative reconstruction technique. CONTRAST: IV 100mL [id number] COMPARISON: 06/03/2016 FINDINGS: LOWER THORAX: Unremarkable. Lung bases are clear. No cardiomegaly. No significant pericardial effusion. ABDOMEN: LIVER: Liver is decreased in attenuation compatible with fatty infiltration. GALLBLADDER AND BILE DUCTS: Unremarkable. No calcified gallstones. No gallbladder distention or wall edema. No intra- or extrahepatic biliary ductal dilation. PANCREAS: Unremarkable. No focal cystic or solid mass. SPLEEN: Unremarkable. Normal size without focal cystic or solid mass. ADRENALS: Unremarkable. No nodules. KIDNEYS AND URETERS: There are nonobstructing calyceal stones in both kidneys. Normal renal size and position. STOMACH AND BOWEL: There are fluid-filled loops of large and small bowel which may represent enteritis with incipient diarrhea. No stomach or bowel distention. PELVIS: APPENDIX: No evidence of acute appendicitis. BLADDER: Unremarkable. REPRODUCTIVE: Unremarkable as visualized. No mass. ABDOMEN and PELVIS: INTRAPERITONEAL SPACE: Unremarkable. No ascites or other fluid collection. No free air. BONES/JOINTS: Unremarkable. No suspicious lytic or blastic abnormality. SOFT TISSUES: There is a ventral hernia which contains mesenteric fat. VASCULATURE: Unremarkable. Abdominal aorta is non-dilated. LYMPH NODES: Unremarkable. No enlarged lymph nodes. CT/Abdomen/Pelvis W IV Cont ONLY IMPRESSION: Fluid-filled loops of large and small bowel which may represent enteritis with incipient diarrhea. No other acute abnormalities are identified. Electronically Signed: Nima Francis MD at 23:07 EST ,
[2024-09-06 21:23] LABS: AST(SGOT) 27 U/L (15-37); Alanine Aminotransfer ALT/SGPT 37 U/L (13-56); Alkaline Phosphatase 79 U/L (45-117); Anion Gap 10 (5-15); BUN 13 mg/dL (7-18); BUN/Creat Ratio 14.5 RATIO (10-20); Calcium,Total 9.4 mg/dL (8.5-10.1); Chloride 102 mmol/L (98-107); Creatinine, Serum 0.89 mg/dL (0.55-1.02); EST Glomerular Filtration Rate 77 mL/min (>60); Est Glom Filt Rate - Afr Amer 93 mL/min (>60); Estimated Creatinine Clearance 106.16 ml/min; Globulin 3.9 g/dL (2.2-4.2); Glucose 102 mg/dL (74-106); Lipase 30 U/L (13-75); Potassium 3.2 mmol/L (3.5-5.1); Protein, Total 7.9 g/dL (6.4-8.2); Sodium Level 138 mmol/L (136-145); Troponin-I HS 8 pg/mL (3.0-54.0)
[2024-09-06 21:30] VITALS: BP 163/106; PULSE 92; RESP 18; TEMP 36.9; O2SAT 98
[2024-09-06 21:54] LABS: Color, Urine Yellow (Yellow); Glucose, Dipstick Normal (Normal); Ketone-Dipstick Negative (Negative); Leukocyte Esterase-Dipstick 500 /ul (Negative); Nitrite-Dipstick Negative (Negative); Occult Blood-Urine 250 /ul (Negative); Protein-Dipstick 100 mg/dl (Negative); Specific Gravity, Urine 1.025 (1.002-1.030); Urine Bilirubin Dipstick Negative (Negative); Urine Clarity Cloudy (Clear); Urine Urobilinogen Normal (Normal)
[2024-09-06 22:00] VITALS: BP 170/95; PULSE 94; RESP 18; TEMP 36.9; O2SAT 96
[2024-09-06 22:05] LABS: Red Blood Cells-Urine > 100 SEEN /hpf (0-5)
[2024-09-06 22:06] LABS: Bacteria 3+ /hpf (None Seen); Mucous, Urine RARE /hpf (<or=2+); Squamous Epithelial Cells - UA 5-10 SEEN /hpf (5-10); White Blood Cells 25-50 SEEN /hpf (0-5)
[2024-09-06 22:08] LABS: Internal QC Validated? YES +Cl - CLEAR BKGD; Pregnancy, Urine Negative Negative
[2024-09-06 23:00] VITALS: BP 152/99; PULSE 98; RESP 18; TEMP 36.9; O2SAT 96
[2024-09-07] VITALS: BP 148/96; PULSE 98; RESP 18; TEMP 37.3; O2SAT 96
[2024-09-07 00:02] VITALS: BP 148/96; PULSE 98; RESP 18; TEMP 37.5; O2SAT 96
== END 2024-09-07 00:47 | disposition home or self-care (01) ==
PROVIDERS: Emergency Provider Emergency Medicine; Visit Provider Emergency Medicine
DX: K52.9 Noninfective gastroenteritis and colitis, unspecified (principal); G89.29 Other chronic pain; E87.6 Hypokalemia; F17.290 Nicotine dependence, other tobacco product, uncomplicated; Z79.899 Other long term (current) drug therapy
CPT/HCPCS: 71045; 74177; 80053; 81001; 81025; 83690; 84484; 85027; 87086; 87088; 93005; 96361; 96374; 99285; Q9967; A4216; J2405

== ENCOUNTER → 2024-12-07 | Outpatient (CLI) | payer MEDICAID, SELFPAY ==
[2024-12-07 11:48] LABS: Absolute Lymphocyte Count 3.14 X10^3/uL (0.83-4.51); Absolute Neutrophil Count 6.5 X10^3/uL (2.0-7.7); Basophil# 0.04 X10^3/uL; Basophil% 0.4 % (0-1); Hematocrit 43.9 % (37-47); Lymphocyte # 3.14 X10^3/ul (0.83-4.51); Lymphocyte % 30.6 % (19-41); Mean Corp Hgb Conc 34.2 g/dL (32-36); Mean Corpuscular Hgb 31.1 pg (27.0-32.0); Mean Corpuscular Volume 90.9 fL (81-99); Mean Platelet Vol. 9.5 fl (6.2-12.0); Monocyte# 0.48 X10^3/uL; Monocyte% 4.7 % (0-10); NRBC Flagged by Analyzer 0 % (0-5); Neutrophil # 6.49 X10^3/uL (2.7-7.7); Neutrophil % 63.1 % (47-70); Platelet Count 292 K/mm3 (150-450); RBC Distribution Width CV 12.4 % (11.6-14.6); RBC Distribution Width SD 41.2 fl (35.1-43.9); Red Blood Count 4.83 M/mm3 (4.2-5.4); White Blood Count 10.3 K/mm3 (4.4-11.0)
[2024-12-07 15:33] LABS: ALB/GLOB Ratio 1.5 RATIO (0.9-2.4); AST(SGOT) 20 U/L (<=31); Alanine Aminotransfer ALT/SGPT 16 U/L (<=34); Albumin, Serum 4.3 g/dL (3.5-5.0); Alkaline Phosphatase 67 U/L (35-104); Anion Gap 12 (5-15); BUN 13 mg/dL (4-19); BUN/Creat Ratio 15.4 RATIO (10-20); Calcium,Total 9.8 mg/dL (7.6-11.0); Chloride 104 mmol/L (98-108); Creatinine, Serum 0.84 mg/dL (0.70-1.20); EST Glomerular Filtration Rate 94 (>60); Globulin 2.8 g/dL (2.2-4.2); Glucose 92 mg/dL (70-99); Potassium 4.3 mmol/L (3.3-5.1); Protein, Total 7.2 g/dL (5.9-8.4); Sodium Level 139 mmol/L (133-145); Total Bilirubin 0.58 mg/dL (0.00-1.30)
== END | disposition home or self-care (01) ==
LOC: LAB 10:42
PROVIDERS: Referring Provider Podiatrist; Visit Provider Podiatrist
DX: M76.62 Achilles tendinitis, left leg (principal)
CPT/HCPCS: 36415; 80053; 85025

== ENCOUNTER → 2025-01-27 | Outpatient (CLI) | payer MEDICAID, SELFPAY ==
--- NOTE | 2025-01-27 07:20 | MRI_ITS ---
PROCEDURE: LOWER EXT JOINT ONLY (ROUTINE) 01/27/2025 REASON FOR EXAM: ACHILLES TENDINITIS. Lateral pain. TECHNIQUE: MRI of the right ankle without contrast. Multiplanar and multisequence images were obtained without IV contrast administration. COMPARISON: COMPARISON : None provided. FINDINGS: Bone Marrow: No abnormal osseous signal is noted. A moderate-sized enthesophyte is seen in the posterior calcaneus. Effusion: No joint effusion is seen. Soft Tissues: No soft tissue mass or fluid collection is noted. Ligaments and Tendons: At the level of the posterior calcaneal enthesophyte, slight signal inhomogeneity of the distal Achilles tendon is noted, albeit without thickening or adjacent edema. Otherwise, no pathology is noted. No ligament tear is seen No significant arthritic process is seen. Satisfactory osseous alignment is seen throughout. MRI/Lower Ext Joint Only (Routine) IMPRESSION: 1. Posterior calcaneal enthesophyte, with slight signal inhomogeneity of the ad jacent very distal Achilles tendon. Reading Location: [place] [id number]
--- NOTE | 2025-01-27 07:20 | MRI_ITS ---
PROCEDURE: LOWER EXT JOINT ONLY (ROUTINE) 01/27/2025 REASON FOR EXAM: BILATERAL ACHILLES TENDINITIS. Left heel pain. TECHNIQUE: MRI of the left ankle without contrast. Multiplanar and multisequence images were obtained without IV contrast administration. COMPARISON: COMPARISON : None provided. FINDINGS: Bone Marrow: There is no abnormal bone marrow signal. A moderately large posterior calcaneal enthesophyte is seen Effusion: No joint effusion is seen Soft Tissues: No soft tissue mass is noted. No free or loculated fluid collection is evident Ligaments and Tendons: Normal appearance of the Achilles tendon is otherwise seen. No tendon pathology is seen. No ligament tear is seen Mild degenerative changes are seen of the talonavicular articulation. Minimal degenerative changes are seen elsewhere. MRI/Lower Ext Joint Only (Routine) IMPRESSION: 1. Moderately large posterior calcaneal enthesophyte. 2. No tendon pathology is noted. 3. Degenerative changes. Reading Location: [place] [id number]
== END | disposition home or self-care (01) ==
LOC: MRI 07:07
PROVIDERS: Referring Provider Podiatrist; Visit Provider Podiatrist
DX: M76.61 Achilles tendinitis, right leg (principal); M76.71 Peroneal tendinitis, right leg
CPT/HCPCS: 73721

== ENCOUNTER → 2025-02-22 | Outpatient (CLI) | payer MEDICAID, SELFPAY ==
[2025-02-22 12:15] LABS: Absolute Lymphocyte Count 2.73 X10^3/uL (0.83-4.51); Absolute Neutrophil Count 6.2 X10^3/uL (2.0-7.7); Basophil# 0.06 X10^3/uL; Basophil% 0.6 % (0-1); Eosinophil# 0.16 X10^3/uL; Eosinophils% 1.7 % (0-5); Hematocrit 41.3 % (37-47); Hemoglobin 14.7 g/dL (12.0-15.0); Lymphocyte # 2.73 X10^3/ul (0.83-4.51); Lymphocyte % 28.2 % (19-41); Mean Corp Hgb Conc 35.6 g/dL (32-36); Mean Corpuscular Hgb 31.9 pg (27.0-32.0); Mean Corpuscular Volume 89.6 fL (81-99); Mean Platelet Vol. 9.7 fl (6.2-12.0); Monocyte# 0.52 X10^3/uL; Monocyte% 5.4 % (0-10); NRBC Flagged by Analyzer 0 % (0-5); Neutrophil # 6.15 X10^3/uL (2.7-7.7); Neutrophil % 63.6 % (47-70); Platelet Count 283 K/mm3 (150-450); RBC Distribution Width CV 12.8 % (11.6-14.6); RBC Distribution Width SD 41.4 fl (35.1-43.9); Red Blood Count 4.61 M/mm3 (4.2-5.4); White Blood Count 9.7 K/mm3 (4.4-11.0)
[2025-02-22 12:51] LABS: ALB/GLOB Ratio 1.4 RATIO (0.9-2.4); AST(SGOT) 18 U/L (<=31); Alanine Aminotransfer ALT/SGPT 12 U/L (<=34); Albumin, Serum 4.1 g/dL (3.5-5.0); Alkaline Phosphatase 66 U/L (35-104); Anion Gap 11 (5-15); BUN 10 mg/dL (4-19); BUN/Creat Ratio 13.7 RATIO (10-20); Calcium,Total 9.4 mg/dL (7.6-11.0); Carbon Dioxide 20.9 mmol/L (21.0-32.0); Chloride 106 mmol/L (98-108); Creatinine, Serum 0.73 mg/dL (0.70-1.20); EST Glomerular Filtration Rate 111 (>60); Globulin 2.9 g/dL (2.2-4.2); Glucose 111 mg/dL (70-99); Potassium 3.7 mmol/L (3.3-5.1); Sodium Level 138 mmol/L (133-145); Total Bilirubin 0.38 mg/dL (0.00-1.30)
== END | disposition home or self-care (01) ==
LOC: VSLAB 09:23
PROVIDERS: PCP Nurse Practitioner Family; Visit Provider Nurse Practitioner Family
DX: M76.62 Achilles tendinitis, left leg (principal)
CPT/HCPCS: 36415; 80053; 85025

== ENCOUNTER 2025-03-03 07:51 | Emergency (ER) | payer MEDICAID, SELFPAY ==
[2025-03-03 07:51] VITALS: BP 142/99; PULSE 82; RESP 14; TEMP 36.6; O2SAT 98; BMI 34.2
--- NOTE | 2025-03-03 08:36 | EX.ED.DYSGE1 ---
HPI History of Present Illness Chief Complaint: Hypertension Informant: patient Onset/Context/Timing Onset: Weeks (1) Context: Gradual Onset Timing: Continuous Quality: Dizziness Location: Generalized Worsened by: Nothing Relieved by: Nothing Narrative Narrative: Patient presents with elevated blood pressure that has been constant for the past week. Patient states he feels dizzy at times. Patient states she has been taking her hypertensive medication. Patient admits to intermittent headaches. Patient denies any chest pain or shortness of breath. Patient states she has increasing anxiety due to her upcoming surgery for bone spur removal and Achilles tendonitis. Patient denies any nausea or vomiting. [facility] Medical History Wears glasses Depression Anxiety Substance abuse Restless legs Migraine headache Seizures Vapes nicotine containing substance History of pain when walking History of edema Hypertension Home Medications ?Medication ?Instructions ?Recorded ?Last Taken ?Type acyclovir 400 mg tablet (Zovirax) 400 mg PO BID 04/10/18 04/16/18 History ibuprofen 600 mg tablet 600 mg PO Q8H PRN PRN pain 02/23/25 Unknown History lisinopril 10 mg tablet 10 mg PO DAILY 02/23/25 Unknown History Allergy/AdvReac Type Severity Reaction Status Date / Time vaccine adjuvant emulsion Allergy Severe ALMOST Verified 03/03/25 07:52 [id number] raspberry Allergy Hives Verified 03/03/25 07:52 Surgical History (Updated 02/23/25 @ 11:18 by Rubina Mondragon) Hx of wisdom tooth extraction Hx of umbilical hernia repair Hx laparoscopic cholecystectomy Social History (Updated 03/03/25 @ 08:[address] Gamaliel Jeter, ) Smoking Status: Current every day smoker tobacco type: e-cigarettes alcohol intake: current alcohol intake frequency: holidays/special occasions only ROS ROS ED Constitutional Constitutional ED: Denies chills or fever(s) Eyes Eyes: Denies blurry vision or change in vision ENT ENT ED: Denies rhinorrhea or sore throat Cardiovascular Cardiovascular: Denies chest pain or palpitations Respiratory/Chest Respiratory/Chest: Denies cough or dyspnea Gastrointestinal Gastrointestinal: Denies nausea or vomiting Genitourinary Genitourinary ED: Denies dysuria or hematuria Musculoskeletal Musculoskeletal: Reports back pain; Denies neck pain Integumentary Denies abscess or rash Neurologic Neurologic: Reports headache(s); Denies weakness Allergic/Immunologic Allergic/Immunologic ED: Denies mouth swelling or urticaria EXAM Physical Exam Const Vital Signs: 03/03/25 07:51 03/03/25 08:56 03/03/25 09:51 Temperature 98 F 98.9 F Temperature Source Temporal Oral Pulse Rate 82 78 Respiratory Rate 14 14 Respiratory Effort Normal Respiratory Pattern Normal Blood Pressure 142/99 H 141/87 H Blood Pressure Mean 113 105 Pulse Ox 98 98 Oxygen Delivery Method Room Air Room Air Positive well nourished and well developed Constitutional Narrative: BMI is 34.2 General Appearance ED: well developed and NAD HEENT Reports moist mucous membranes Neck supple and no JVD Resp normal respiratory effort and clear to auscultation bilaterally Cardio regular rate and regular rhythm GI non-tender and non-distended Palpation: soft Neuro oriented x3, CN's II-XII intact bilaterally and no sensory deficits noted Sensorium / Orientation: alert Motor Exam: strength 5/5 throughout Psych mental status grossly normal MDM MDM MDM Narrative Medical decision making narrative: Differential diagnosis includes uncontrolled hypertension, hypertensive urgency, dehydration, electrolyte abnormality, pneumonia, and bronchitis. EKG will be obtained to assess for cardiac dysrhythmia and cardiac ischemia. Chest x-ray will be obtained to assess for pneumonia and bronchitis. CBC will be obtained to assess for leukocytosis and anemia. Basic metabolic profile will be obtained to assess for electrolyte abnormality and renal function. High-sensitivity troponin will be obtained to assess for cardiac ischemia. History & Record Review Additional record(s) reviewed:: Prior ED visit and Prior labs Lab Data Attestation: I reviewed the patient's lab results. Lab results narrative: The CBC was reviewed and was within normal limits. Basic metabolic profile was reviewed and was essentially within normal limits. High-sensitivity troponin was reviewed and was less than 6. Labs: Laboratory Results - last 24 hr 03/03/25 09:10 WBC 10.2 RBC 4.57 Hgb 14.4 Hct 41.4 MCV 90.6 MCH 31.5 MCHC 34.8 RDW Std Deviation 41.0 RDW Coeff of Yasemin 12.4 Plt Count 310 MPV 9.4 Immature Gran % (Auto) 0.300 Neut % (Auto) 62.1 Lymph % (Auto) 30.7 Dent % (Auto) 5.2 Eos % (Auto) 1.1 Baso % (Auto) 0.6 Absolute Neuts (auto) 6.3 Absolute Lymphs (auto) 3.13 Nucleated RBC % 0 Sodium 138 Potassium 4.1 Chloride 105 Carbon Dioxide 18.3 L Anion Gap 16 H BUN 12 Creatinine 0.81 Estim Creat Clear Calc 110.43 Est GFR (MDRD) Non-Af 98 BUN/Creatinine Ratio 15.2 Glucose 107 H Calcium 9.4 Troponin T High Sens < 6 Radiography Chest X-Ray - ED: 2 View, Read by ED Physician, Read by Radiologist and No Acute Disease Diagnostic Testing: Clinical Impression(s) from Imaging Studies Chest X-Ray 03/03/25 09:50 IMPRESSION: NO ACUTE FINDINGS. Reading Location: [facility] PA and lateral chest x-ray was obtained. There are 2 views. On my independent interpretation, lung pappas are clear. There is normal cardiac silhouette. Bony thorax is normal. There is no acute process noted. Radiologist also interpreted the x-ray and agrees. EKG Initial EKG: Attestation: I personally reviewed and interpreted this EKG as follows: Interpretation: Sinus Rhythm (79) and No Acute Injury Pattern Comments: EKG was obtained. On my independent interpretation, it showed a normal sinus rhythm with a rate of 79. MD interval, QRS interval, and QTc intervals were all normal. There is right axis deviation at 184. There are no acute ST or T wave changes. Compared to previous EKG dated 09/06/2024, I suspect limb lead reversal. Otherwise, there are no acute changes. This would account for the right axis deviation. Prior EKG tracings: available for review Prior: Unchanged (09/06/2024) Treatment and Re-Evaluation :: Patient was advised of her findings. Patient blood pressure remains 141/87. I do not feel this needs to be emergently treated. Patient was instructed to continue her lisinopril as prescribed. Patient was instructed to continue to monitor her blood pressures. Patient was instructed to follow-up with her primary care physician for further evaluation and management of her blood pressure medications. Patient understood and was agreeable with the plan. All questions were answered. Discharge Plan Triage Chief Complaint: Hypertension ED Provider: Gamaliel Jeter Dx/Rx/DC Orders Clinical Impression: Hypertension, Achilles tendinitis Instructions: ED Hypertension, Established Prescriptions: No Action acyclovir [Zovirax] 400 MG tablet 400 mg PO BID lisinopril 10 mg tablet 10 mg PO DAILY ibuprofen 600 mg tablet 600 mg PO Q8H PRN PRN (Reason: pain) Primary Care Provider: Comfort Pantoja Referrals: Comfort Pantoja, CERTIFIED DRUG COUNSELOR-C [Primary Care Provider] - 5-7 Days Activity Restrictions/Additional Instructions: Continue to keep a log of your blood pressures twice daily. Take these to your follow-up appointment with your primary care physician. Print Language: Maltese Disposition Disposition: Home, Self Care
--- NOTE | 2025-03-03 09:01 | EKG12_ITS ---
Test Reason : Blood Pressure : */* mmHG Vent. Rate : 79 BPM Atrial Rate : 79 BPM P-R Int : 150 ms QRS Dur : 80 ms QT Int : 424 ms P-R-T Axes : * 184 151 degrees QTcB Int : 486 ms Normal sinus rhythm Right superior axis deviation Nonspecific ST and T wave abnormality Prolonged QT Abnormal ECG Confirmed by PHILIP SANZ, IAM ([id number]), news video editor BRIAN WISEMAN ([id number]) on 03/05/2025 12:58:49 PM Referred By: Confirmed By: IAM PALACIOS MD
[2025-03-03 09:19] LABS: Absolute Lymphocyte Count 3.13 X10^3/uL (0.83-4.51); Absolute Neutrophil Count 6.3 X10^3/uL (2.0-7.7); Basophil# 0.06 X10^3/uL; Basophil% 0.6 % (0-1); Eosinophil# 0.11 X10^3/uL; Eosinophils% 1.1 % (0-5); Hematocrit 41.4 % (37-47); Hemoglobin 14.4 g/dL (12.0-15.0); Lymphocyte # 3.13 X10^3/ul (0.83-4.51); Lymphocyte % 30.7 % (19-41); Mean Corp Hgb Conc 34.8 g/dL (32-36); Mean Corpuscular Hgb 31.5 pg (27.0-32.0); Mean Corpuscular Volume 90.6 fL (81-99); Mean Platelet Vol. 9.4 fl (6.2-12.0); Monocyte# 0.53 X10^3/uL; Monocyte% 5.2 % (0-10); NRBC Flagged by Analyzer 0 % (0-5); Neutrophil # 6.32 X10^3/uL (2.7-7.7); Neutrophil % 62.1 % (47-70); Platelet Count 310 K/mm3 (150-450); RBC Distribution Width CV 12.4 % (11.6-14.6); Red Blood Count 4.57 M/mm3 (4.2-5.4); White Blood Count 10.2 K/mm3 (4.4-11.0)
--- NOTE | 2025-03-03 09:50 | RAD_ITS ---
PROCEDURE: CHEST PA AND LATERAL 03/03/2025 REASON FOR EXAM: HYPERTENSION TECHNIQUE: CHEST PA AND LATERAL COMPARISON: Prior study dated September 06, 2024. FINDINGS: Hardware: EKG electrodes are seen. Heart: The heart size is normal. Mediastinum: The mediastinal contour is unremarkable. Lungs: The lungs are clear. Scattered calcified granulomas. Bones: The bones are unremarkable. RAD/Chest PA and Lateral IMPRESSION: NO ACUTE FINDINGS. Reading Location: [place] [address]
[2025-03-03 09:51] VITALS: BP 141/87; PULSE 78; RESP 14; TEMP 37.2; O2SAT 98
[2025-03-03 09:52] LABS: Anion Gap 16 (5-15); BUN 12 mg/dL (4-19); BUN/Creat Ratio 15.2 RATIO (10-20); Calcium,Total 9.4 mg/dL (7.6-11.0); Carbon Dioxide 18.3 mmol/L (21.0-32.0); Chloride 105 mmol/L (98-108); Creatinine, Serum 0.81 mg/dL (0.70-1.20); EST Glomerular Filtration Rate 98 (>60); Estimated Creatinine Clearance 110.43 ml/min (50-250); Glucose 107 mg/dL (70-99); Potassium 4.1 mmol/L (3.3-5.1); Sodium Level 138 mmol/L (133-145); Troponin T High Sensitivity < 6 ng/L (<=14)
[2025-03-03 10:45] VITALS: BP 145/87; PULSE 68; RESP 18; TEMP 36.6; O2SAT 100
== END 2025-03-03 10:46 | disposition home or self-care (01) ==
PROVIDERS: Emergency Provider Emergency Medicine; PCP Nurse Practitioner Family; Visit Provider Emergency Medicine
DX: I10 Essential (primary) hypertension (principal); M76.60 Achilles tendinitis, unspecified leg; F17.290 Nicotine dependence, other tobacco product, uncomplicated; Z79.899 Other long term (current) drug therapy
CPT/HCPCS: 71046; 80048; 84484; 85025; 93005; 99284; A4216

== ENCOUNTER 2025-03-05 05:52 | Day surgery (SDC) | payer MEDICAID, SELFPAY ==
[2025-03-05] VITALS (13 sets, daily range): BP systolic 128–157; BP diastolic 81–100; PULSE 57–71; RESP 16–18; TEMP 36.3–36.7; O2SAT 99–100; BMI 34.2
--- OUTSIDE RECORDS SUMMARY | 2025-03-05 06:08 | XMS RPT_ITS | CCD ---
Author Organization [facility] Care Team Providers [place] [employer] Name Role Phone SANDIE OGDEN Unavailable Unavailable JAKE STOLL Unavailable Unavailable KALIN POSADAS Admitting Unavailable KALIN POSADAS Attending Unavailable Unavailable Primary Care Provider Unavailmax e Justin DEVELOPMENT ADVISOR.ASSIGNMENT CLERK, DNP, Jojo Primary Care Provider Justin DEVELOPMENT ADVISOR.ASSIGNMENT CLERK, Jojo CURRAN Primary Care Provider Unavailable Primary Care Provider Unavailabl e Marielya , Jonathan F Primary Care Provider PROVIDER, UNKNOWN Referring Unavailable Jane Raymundo Attending Unavailable No, PCP Primary Care Unavailable PROVIDER, UNKNOWN Referring Unavailable No, PCP Primary Care Unavailable Juanita Hazel Attending Unavailable PROVIDER, UNKNOWN Referring Unavailable Ervin Badillo Attending Unavailable No, PCP Primary Care Unavailable No, PCP Primary Care Unavailable PROVIDER, UNKNOWN Attending Unavailable PROVIDER, UNKNOWN Referring Unavailable Ac Crabtree Attending Unavailable PROVIDER, UNKNOWN Referring Unavailable No, PCP Primary Care Unavailable PROVIDER, UNKNOWN Referring Unavailable SHALONDA RODRIGUEZ Attending Unavaila ble No, PCP Primary Care Unavailable No, PCP Primary Care Unavailable PROVIDER, UNKNOWN Referring Unavailable AC CRABTREE JR Attending Unavailable PROVIDER, UNKNOWN Referring Unavailable AC CRABTREE JR Attending Unavailable No, PCP Primary Care Unavailable Petrilla DO, Jonathan F Primary Care Provider Petrilla DO, Jonathan F Primary Care Provider Wilmar Cristobal MD Unavailable Helder Ruiz MD Unavailable Devin Bernal MD Primary Care Provider Wilmar Cristobal MD Unavailable Helder Ruiz MD Unavailable MATHEUS GUTIERREZ MD III Primary Care Physician CEBUL MD, MATHEUS A III Primary Care Unavailabl e ANKITA PATRICK DO Attending Unavailable NORMA, DEVIN Primary Care Unavailable SHALONDA NICOLE Attending Unavailable BRIDENTHAL, LETICIA Attending Unavailable NORMA, DEVIN Primary Care Unavailable BRIDENTHAL, LETICIA Attending Unavailable NORMA, DEVIN Primary Care Unavailable BRIDENTHAL, LETICIA Attending Unavailable NORMA, DEVIN Primary Care Unavailable BRIDENTHAL, LETICIA Attending Unavailable NORMA, DEVIN Primary Care Unavailable BRIDENTHAL, LETICIA Attending Unavailable NORMA, DEVIN Primary Care Unavailable BRIDENTHAL, LETICIA Attending Unavailable NORMA, DEVIN Primary Care Unavailable BRIDENTHAL, LETICIA Attending Unavailable NORMA, DEVIN Primary Care Unavailable BRIDENTHAL, LETICIA Attending Unavailable NORMA, DEVIN Primary Care Unavailable BRIDENTHAL, LETICIA Attending Unavailable NORMA, DEVIN Primary Care Unavailable BRIDENTHAL, LETICIA Attending Unavailable NORMA, DEVIN Primary Care Unavailable ELOISA SQUIRES Referring Unavailable PETRILLA, JONATHAN Primary Care Unavailable HELDER RUIZ Attending Unavailable PETRILLA, JONATHAN Primary Care Unavailable PETRILLA, JONATHAN Primary Care Unavailable ELOISA SQUIRES Attending Unavailable BRIDENTHAL, LETICIA Attending Unavailable NORMA, DEVIN Primary Care Unavailable Blaz DEVELOPMENT ADVISOR.ASSIGNMENT CLERK, DNP, Jojo Primary Care Provider Melida POWELL MD, Frank A Primary Care Provider Celeste vailable PETRILLA, JONATHAN ANABELLA Primary Care Unavail able Mauricio DO, [facility] Primary Care Provide r Dr. Jane Raymundo DO Attending Provider Dr. Jane Raymundo DO Emergency Provider Care Physician, No Primary Primary Care Provider Unavailable Dr. Damaso Swift DPM Attending Provider Dr. Damaso Swift DPM Referring Provider ANKITA PATRICK DO Attending Unavailable MATHEUS GUTIERREZ MD, III Primary Care Unavailabl e Care Physician, No Primary Primary Care Provider Unavailable Kit [facility] Primary Care Provider Comfort Navarrete Attending Provider Dr. Madan Jeter DO Emergency Provider [phone] Damaso Swift Referring Unavailable Care Physician, No Primary Primary Care Unava ilable Damaso Swift Attending Unavailable Comfort Pantoja Primary Care Unavailable Comfort Pantoja Attending Unavailable Damaso Swift Referring Unavailable Care Physician, No Primary Primary Care Unava ilable Damaso Swift Attending Unavailable Madan Jeter Attending Unavailable [facility], Comfort Primary Care Unavailable Care Physician, No Primary Primary Care Unava ilable Jane Raymundo Attending Unavailable Damaso Swift Referring Unavailable [facility], Comfort Primary Care Unavailable Damaso Swift Attending Unavailable Allergies Allergy Classification Reported Allergen(s) Allergy Type Date of Onset Reaction(s) Facility (20 sources) raspberry extract; Translations: [RASPBERRY] Drug Allergy 0 Hives [facility] Repository (1 source) VACCINE ADJUVANT EMULSION COMBINATION NO. 1; Translations: [VACCINE ADJUVANT EMULSION COMBINATION NO. 1] Propensity to adverse reactions to drug (disorder) 0 [facility] Repository (12 sources) Vaccine Adjuvant Emulsion As03; Translations: [VACCINE ADJUVANT EMULSION AS03] Propensity to adverse reactions to drug 0 Anaphylaxis [facility] (20 sources) Haemophilus influenzae type b Drug Allergy 0 Anaphylaxis [facility] (20 sources) Influenza virus vaccine Drug Allergy 8 [facility] (4 sources) vaccine adjuvant emulsion MF59C.1; Translations: [vaccine adjuvant emulsion MF59C.1] Allergy to substance 8 ALMOST [facility] Comment on above: SHOT I GOT WHEN I W [age]. NEGATED: Highlighted row has been ruled out! (7 sources) Other Propensity to adverse reactions 0 Anaphylaxis [facility] Medications Current Medications Medication Drug Class(es) Dates Sig (Normalized) Sig (Original) acetaminophen 325 mg / diphenhydrAMINE hydrochloride 12.5 mg oral tablet (9 sources) Histamine-1 Receptor Antagonist Start: 12-01-2021 End: 12-26-2022 diphenhydrAMINE-Ac etaminophen (Percogesic) 12.5-325 MG tablet Take 1 tablet by mouth. 0 12/01/2021 12/26/2022 Discontinued Start: 12-01-2021 take 12.5-325 mg by mouth four times daily as needed diphenhydrAMINE-APAP (PERCOGESIC) 12.5-325 MG TABS Take 1 tablet by mouth 4 times daily as needed (pain) 112 tablet 0 12/01/2021 Active acetaminophen 325 mg / HYDROcodone bitartrate 5 mg oral tablet (6 sources) Opioid Agonist Start: 03-29-2023 End: 04-03-2023 take 1 tablet by mouth every six hours as needed for pain HYDROcodone-acetaminophen ([place]) 5-325 MG tablet Indications: Ureteral calculus, left Take 1 tablet by mouth every 6 hours as needed for severe pain (7-10) for up to 5 days. 6 tablet 0 03/29/2023 04/03/2023 Active Start: 12-26-2022 End: 12-29-2022 take 1 tablet by mouth every six hours as needed for pain HYDROcodone-acetaminophen ([place]) 5-325 MG tablet Indications: Ureterolithiasis Take 1 tablet by mouth every 6 hours as needed for severe pain (7-10) for up to 3 days. 12 tablet 0 12/26/2022 12/29/2022 Active acyclovir 400 mg oral tablet (20 sources) Herpesvirus Nucleoside Analog DNA Polymerase Inhibitor, Herpes Simplex Virus Nucleoside Analog DNA Polymerase Inhibitor, Herpes Zoster Virus Nucleoside Analog DNA Polymerase Inhibitor Start: 03-09-2021 End: 2024 take 1 tablet by mouth once daily acyclovir (Zovirax) 400 MG tablet Indications: Herpes simplex virus (HSV) infection Take 1 tablet (400 mg) by mouth daily. 30 tablet 5 2024 Active Start: 04-10-2018 End: 04-23-2022 take 1 tablet by mouth twice daily Acyclovir (Zovirax) 400 MG tablet Active 400 mg PO TWICE A DAY April 10, 2018 12:00am Start: 12-15-2017 acyclovir Dose : 400 mg = Start Date: 12/15/17 Status: Ordered Start: 11-22-2017 End: 12-02-2017 take 1 capsule by mouth twice daily Acyclovir 200 MG capsule Discontinued 400 mg PO TWICE A DAY November 22, 2017 1:00am December 02, 2017 8:58am Comment on above: Take 1 tablet by papito twice daily. take 1 tablet by papito twice a day [id number] 200 actuat albuterol 0.09 mg/actuat metered dose inhaler (20 sources) beta2-Adrenergic Agonist Start: End: take 2 puff(s) by inhalation every six hours as needed for wheezing albuterol HFA (PROVENTIL HFA, VENTOLIN HFA) 90 mcg/actuation inhaler Indications: Chronic cough Inhale 2 Puffs as instructed every 6 hours as needed for wheezing/shortness of breath. 1 Each 1 03/22/2021 Active Comment on above: Inhale 2 Puffs as in structed every 6 hours as needed for wheezing/shortness of breath. amoxicillin 875 mg / clavulanate 125 mg oral tablet (2 sources) Penicillin-class Antibacterial Start: End: take 1 tablet by mouth twice daily amoxicillin-clavula verona (AUGMENTIN) 875-125 MG per tablet Take 1 tablet by mouth 2 times daily for 7 days 14 tablet 0 02/19/2022 02/19/2022 Discontinued (REORDER) benazepril hydrochloride 40 mg oral tablet (20 sources) Angiotensin Converting Enzyme Inhibitor Start: End: take 1 tablet by mouth once daily benazepril (Lotensin) 40 MG tablet Indications: Primary hypertension Take 1 tablet (40 mg) by mouth daily. 30 tablet 1 02/13/2024 02/12/2025 Active Start: 01-01-2024 End: 01-31-2024 take 1 tablet by mouth once daily benazepril (Lotensin) 20 MG tablet Indications: Primary hypertension Take 1 tablet (20 mg) by mouth daily. 30 tablet 0 01/01/2024 01/15/2024 Discontinued (Ineffective) Start: 07-04-2022 End: 01-01-2024 take 1 tablet by mouth once daily benazepril (Lotensin) 10 MG tablet Indications: Primary hypertension Take 1 tablet (10 mg) by mouth daily. 90 tablet 0 07/02/2023 01/01/2024 Discontinued Blood Pressure Monitor kit (11 sources) Start: 08-27-2019 Blood Pressure Monitor kit Take blood pressure daily. 1 Kit 08/27/2019 Active Start: 08-27-2019 Blood Pressure Monitor kit Take blood pressure daily. 1 Kit 0 08/27/2019 Active Comment on above: Take blood pressure daily. 12 hr buPROPion hydrochloride 150 mg extended release oral tablet (19 sources) Aminoketone Start: 07-14-20 End: 12-27-19 buPROPion SR (ZYBAN SR; WELLBUTRIN SR) 150 mg 12 hr tablet Indications: Tobacco use disorder take 1 tablet twice a day for SMOKING CESSATION 60 tablet 2 07/14/2021 Active Comment on above: take 1 tablet twice a day for SMOKING CESSATION cefdinir 300 mg oral capsule (4 sources) Cephalosporin Antibacterial Start: 03-15-20 End: 03-20-20 take 1 capsule by mouth twice daily cefdinir (Omnicef) 300 MG capsule Take 1 capsule (300 mg) by mouth 2 times daily for 5 days. 10 capsule 0 03/15/2023 03/20/2023 Active cefpodoxime 200 mg oral tablet (4 sources) Cephalosporin Antibacterial Start: 04-18-20 End: 04-28-20 take 1 tablet by mouth twice daily cefpodoxime (Vantin) 200 MG tablet Take 1 tablet (200 mg) by mouth 2 times daily for 10 days. 20 tablet 0 04/18/2023 04/28/2023 Active cephalexin 500 mg oral capsule (4 sources) Cephalosporin Antibacterial Start: 06-21-20 End: 06-28-20 take 1 capsule by mouth twice daily cephALEXin (KEFLEX) 500 mg capsule Take 1 capsule by mouth two times a day for 7 days. 14 capsule 06/21/2024 06/28/2024 Active Start: 06-12-2022 End: 06-19-2022 cephALEXin (KEFLEX) capsule 500 mg cholecalciferol 1.25 mg oral capsule (13 sources) Vitamin D Start: 12-21-2021 End: 12-26-2022 take 1 capsule by mouth every week cholecalciferol (Vitamin D-3) 1.25 MG (67269 UT) capsule Take 50,000 Units by mouth once a week. 0 03/21/2022 Active Comment on above: Take 1 capsule by [facility] one time a week. diatrizoate meglumine-sodium (GASTROGRAFIN) 66-10 % solution 30 mL (1 source) Start: 12-01-2021 diatrizoate meglumine-sodium (GASTROGRAFIN) 66-10 % solution 30 mL hydroCHLOROthiazide 25 mg oral tablet (20 sources) Thiazide Diuretic Start: 01-03-2021 End: 04-13-2024 take 1 tablet by mouth once daily hydroCHLOROthiazide (HYDRODIURIL, ESIDRIX) 25 mg tablet take 1 tablet by mouth once daily 90 tablet 1 03/16/2022 Active Start: 10-14-2019 hydroCHLOROthi azide Oral, qDay, 0 Refill(s) Start Date: 10/14/19 Status: Ordered Comment on above: Take 1 tablet by papito th once daily. take 1 tablet by papito th once daily ibuprofen 600 mg oral tablet (5 sources) Nonsteroidal Anti-inflammatory Drug Start: 02-23-2025 take 1 tablet by mouth every eight hours as needed for pain Ibuprofen 600 mg tablet Active 600 mg PO EVERY 8 HOURS NEEDED as needed for pain February 23, 2025 12:00am Start: 04-17-2018 End: 02-23-2025 take 2 tablets by mouth every eight hours as needed for pain Ibuprofen 400 MG tablet Discontinued 800 mg PO EVERY 8 HOURS NEEDED as needed for Pain April 17, 2018 12:00am February 23, 2025 11:09am lisinopril 10 mg oral tablet (4 sources) Angiotensin Converting Enzyme Inhibitor Start: 02-23-2025 take 1 tablet by mouth once daily Lisinopril 10 mg tablet Active 10 mg PO DAILY February 23, 2025 12:00am Start: 03-14-2023 End: 03-15-2023 take 5 mg by mouth once daily 5 mg, Oral, Daily, First dose on Leida 03/14/23 at 0900 meloxicam 15 mg oral tablet (4 sources) Nonsteroidal Anti-inflammatory Drug Start: 02-19-2022 End: 02-19-2022 take 1 tablet by mouth once daily meloxicam (MOBIC) 15 MG tablet Take 1 tablet by mouth daily 10 tablet 0 02/19/2022 Active Miscellaneous Medical Supply (11 sources) Start: 05-16-2020 Miscellaneous Medical Supply Indications: Thumb pain, unspecified laterality Left thumb splint-disp 1 Right thumb splint--disp 1 use as needed to rest the thumbs Dx thumb strain from overuse 2 Each 1 05/16/2020 Active Comment on above: Left thumb splint-di sp 1 Right thumb splint--disp 1 use as needed to rest the thumbs Dx thumb strain from overuse phenazopyridine hydrochloride 200 mg delayed release oral tablet (4 sources) Start: 03-29-2023 End: 04-02-2023 take 1 tablet by mouth three times daily phenazopyridine (Pyridium) 200 MG tablet Take 1 tablet (200 mg) by mouth 3 times daily for 3 days. 10 tablet 0 03/29/2023 04/02/2023 Active Start: 03-15-2023 End: 03-19-2023 take 1 tablet by mouth three times daily as needed for muscle spasms phenazopyridine (Pyridium) 200 MG tablet Take 1 tablet (200 mg) by mouth 3 times daily as needed for bladder spasms for up to 3 days. 10 tablet 0 03/15/2023 03/19/2023 Active Multivitamins (1 source) Start: 09-22-2017 take 1 tablet by mouth once daily Multivitamins Dose = 1 tab(s), Oral, qDay, 0 Refill(s) Start Date: 09/22/17 Status: Ordered MV-Min-Fe Fum-FA-DHA ( 1) 30-0.975-200 MG CAPS (7 sources) Start: 05-14-2017 MV-Mi n-Fe Fum-FA-DHA ( 1) 30-0.975-200 MG CAPS Indications: , unspecified gestational age , Supervision of other normal , antepartum , Amenorrhea Take 200 mg by mouth daily 30 capsule 9 05/14/2017 Active Vit-Fe Fumarate-FA ( VITAMINS) 28-0.8 MG TABS (3 sources) Start: 07-04-2022 Vit-F e Fumarate-FA ( VITAMINS) 28-0.8 MG TABS One q day 100 tablet 1 07/04/2022 Active sodium chloride flush 0.9 % injection 3 mL (2 sources) Start: 06-12-2022 sodium chlorid e flush 0.9 % injection 3 mL Start: 02-19-2022 sodium chlorid e flush 0.9 % injection 3 mL sulfamethoxazole 800 mg / trimethoprim 160 mg oral tablet (6 sources) Dihydrofolate Reductase Inhibitor Antibacterial, Sulfonamide Antimicrobial Start: 12-26-2022 End: 01-02-2023 take 1 tablet by mouth twice daily sulfamethoxazole-trimethoprim (Bactrim DS) 800-160 MG tablet Take 1 tablet by mouth 2 times daily for 7 days. 14 tablet 0 12/26/2022 01/02/2023 Active Start: 12-26-2022 End: 12-26-2022 sulfamethoxazole-trimethopri m (Bactrim DS) 800-160 MG per tablet 1 tablet Completed/Discontinued Medications Medication Drug Class(es) Dates Sig (Normalized) Sig (Original) acetaminophen 500 mg oral tablet (20 sources) Start: 03-29-2023 End: 03-29-2023 acetaminophen (Tylenol) tablet 1,000 mg Start: 03-15-2023 End: 03-15-2023 acetaminophen (Tylenol) tabl et 1,000 mg Start: 03-15-2023 acetaminophen (Tylenol) tablet 500 mg Start: 03-14-2023 End: 03-15-2023 take 1 tablet by mouth every six hours as needed for pain and fever acetaminophen (Tylenol) tablet 650 mg Start: 02-19-2022 End: 02-19-2022 acetaminophen (TYLENOL) tabl et 1,000 mg Start: 12-01-2021 End: 12-01-2021 acetaminophen (TYLENOL) tabl et 1,000 mg Start: 12-06-2017 End: 05-28-2022 take 2 tablets by mouth every eight hours as needed acetaminophen (TYLENOL) 500 mg tablet Take 2 tablets by mouth every 8 hours as needed. 60 tablet 1 12/06/2017 05/28/2022 Discontinued Comment on above: Take 2 tablets [address] [facility] every 8 hours as needed. acetaminophen 325 mg / oxyCODONE hydrochloride 5 mg oral tablet (5 sources) Opioid Agonist Start: 03-14-2023 End: 03-15-2023 take 1 tablet by mouth every six hours as needed for pain and pain oxyCODONE-acetam inophen (Percocet) 5-325 MG per tablet 1 tablet Start: 04-17-2018 End: 02-23-2025 Oxycodone-Acetaminophen 1 TA BLET tablet Discontinued 1 {tbl} PO EVERY 6 HOURS NEEDED as needed for Pain 5 3 April 17, 2018 12:00am February 23, 2025 11:09am ALPRAZolam 0.25 mg disintegrating oral tablet (4 sources) Benzodiazepine Start: 03-29-2023 End: 03-29-2023 ALPRAZolam (Xanax) disintegrating tablet 0.25 mg Start: 03-15-2023 End: 03-15-2023 ALPRAZolam (Xanax) disintegr ating tablet 0.25 mg benzonatate 100 mg oral capsule (9 sources) Non-narcotic Antitussive Start: 10-31-2020 End: 05-28-2022 take 2 capsules by mouth every eight hours as needed benzonatate (TESSALON PERLES) 100 mg capsule Take 2 capsules by mouth three times daily as needed for Cough. 20 capsule 10/31/2020 05/28/2022 Discontinued Comment on above: Take 2 capsules by m outh three times daily as needed for Cough. betamethasone 0.5 mg/ml / clotrimazole 10 mg/ml topical cream (1 source) Azole Antifungal, Corticosteroid Start: 07-18-2021 End: 08-17-2021 clotrimazole-beta methasone (LOTRISONE) cream Indications: Tinea corporis , Skin irritation Apply to affected area twice daily. Apply for 21 days. 45 g 1 07/18/2021 08/17/2021 calcium chloride 0.0014 meq/ml / potassium chloride 0.004 meq/ml / sodium chloride 0.103 meq/ml / sodium lactate 0.028 meq/ml injectable solution (4 sources) Start: 03-29-2023 End: 03-29-2023 lactated Ringer's (LR) infusion Start: 03-15-2023 End: 03-15-2023 lactated Ringer's (LR) infus ion cefTRIAXone (Rocephin) 1,000 mg in sodium chloride 0.9 % 50 mL IVPB Mini-Bag Plus (6 sources) Start: 04-18-2023 End: 04-18-2023 cefTRIAXone (Rocephin) 1,000 mg in sodium chloride 0.9 % 50 mL IVPB Mini-Bag Plus Start: 03-14-2023 End: 03-15-2023 cefTRIAXone (Rocephin) 1,000 mg in sodium chloride 0.9 % 50 mL IVPB Mini-Bag Plus Start: 03-14-2023 End: 03-14-2023 cefTRIAXone (Rocephin) 1,000 mg in sodium chloride 0.9 % 50 mL IVPB Mini-Bag Plus cefTRIAXone (ROCEPHIN) 2,000 mg in dextrose 5 % 50 mL IVPB (1 source) Start: 02-19-2022 End: 02-19-2022 cefTRIAXone (ROCEPHIN) 2,000 mg in dextrose 5 % 50 mL IVPB escitalopram 10 mg oral tablet (20 sources) Serotonin Reuptake Inhibitor Start: 03-14-2023 End: 03-15-2023 take 20 mg by mouth once daily 20 mg, Oral, Daily, First dose on Leida 03/14/23 at 0900 Start: 07-04-2022 End: 08-03-2022 take 1 tablet by mouth once daily escitalopram (LEXAPRO) 10 MG tablet Take 1 tablet by mouth daily for 30 doses 30 tablet 1 07/04/2022 08/03/2022 Active Start: 03-09-2021 End: 07-02-2023 take 1 tablet by mouth in the morning escitalopram (Lexapro) 20 MG tablet Take 20 mg by mouth in the morning. 0 10/09/2021 11/06/2022 Discontinued (Reorder) Start: 10-14-2019 Lexapro Oral, qDay, 0 Refill(s) Start Date: 10/14/19 Status: Ordered Comment on above: take 1 tablet by papito th once daily famotidine 20 mg oral tablet (5 sources) Histamine-2 Receptor Antagonist Start: 03-29-2023 End: 03-29-2023 famotidine (Pepcid) tablet 20 mg Start: 03-15-2023 End: 03-15-2023 famotidine (Pepcid) tablet 2 0 mg Start: 08-10-2020 End: 08-17-2020 Pepcid 20 mg oral tablet Dos e : 20 mg = 1 tab(s), Oral, BID, # 14 tab(s), 0 Refill(s), Urticaria Allergic reaction Start Date: 08/10/20 Stop Date: 08/17/20 Status: Ordered FLUoxetine 20 mg oral capsule (6 sources) Serotonin Reuptake Inhibitor Start: 07-02-2023 End: 09-04-2023 take 1 capsule by mouth once daily FLUoxetine (PROzac) 20 MG capsule Indications: Anxiety and depression Take 1 capsule (20 mg) by mouth daily. 30 capsule 1 07/02/2023 09/04/2023 Discontinued (Side effects) gabapentin 100 mg oral capsule (20 sources) Anti-epileptic Agent Start: 04-19-2021 End: 05-20-2022 take 1 capsule by mouth once daily at bedtime gabapentin (NEURONTIN) 300 mg capsule Indications: Carpal tunnel syndrome, bilateral Take 1 capsule by mouth daily at bedtime for 60 days. 30 capsule 3 03/21/2022 Active Start: 04-19-2021 End: 03-29-2023 gabapentin (Neurontin) capsu le 100 mg Start: 03-22-2021 End: 04-19-2021 take 1 capsule by mouth three times daily as needed gabapentin (NEURONTIN) 100 mg capsule Indications: Carpal tunnel syndrome, bilateral Take 1 capsule by mouth three times daily as needed for up to 30 days. 90 capsule 03/22/2021 04/19/2021 Discontinued Comment on above: Take 1 capsule by [facility] twice daily for 60 days. Take 1 capsule by [facility] daily at bedtime for 60 days. 1 ml HYDROmorphone hydrochloride 1 mg/ml cartridge (4 sources) Opioid Agonist Start: 04-18-2023 End: 04-18-2023 HYDROmorphone (Dilaudid) injection 1 mg Start: 03-14-2023 End: 03-14-2023 HYDROmorphone (Dilaudid) inj ection 0.5 mg Inhalational Spacing Device (1 source) Start: 03-22-2021 End: 03-22-2021 Inhalational Spacing Device Indications: Chronic cough 1 Device one time only for 1 dose. 1 Each 03/22/2021 03/22/2021 ketamine 100 mg/ml injectable solution (1 source) General Anesthetic Start: 02-19-2022 End: 02-19-2022 ketamine (KETALAR) injection 20 mg 1 ml ketorolac tromethamine 15 mg/ml cartridge (15 sources) Nonsteroidal Anti-inflammatory Drug, Cyclooxygenase Inhibitor Start: 04-18-2023 End: 04-18-2023 ketorolac (Toradol) injection 15 mg Start: 12-26-2022 End: 12-31-2022 take 1 tablet by mouth every six hours as needed for pain ketorolac (Toradol) 10 MG tablet Take 1 tablet (10 mg) by mouth every 6 hours as needed for moderate pain (4-6) for up to 5 days. 20 tablet 0 12/26/2022 12/31/2022 Active Start: 12-26-2022 End: 12-26-2022 ketorolac (Toradol) injectio n 15 mg Start: 02-19-2022 ketorolac (TOR ADOL) injection 9.9 mg Start: 12-01-2021 End: 12-01-2022 take 1 tablet by mouth every six hours as needed for pain ketorolac (TORADOL) 10 MG tablet Take 1 tablet by mouth every 6 hours as needed for Pain 20 tablet 0 12/01/2021 12/01/2022 Active 1 ml LORazepam 2 mg/ml injection (2 sources) Benzodiazepine Start: 02-19-2022 End: 02-19-2022 LORazepam (ATIVAN) injection 0.5 mg Start: 02-19-2022 End: 02-19-2022 LORazepam (ATIVAN) 2 MG/ML i njection melatonin 3 mg oral tablet (2 sources) Start: 03-14-2023 End: 03-15-2023 melatonin tablet 3 mg mirtazapine 30 mg oral tablet (14 sources) Start: 09-06-2024 End: 02-23-2025 take 1 tablet by mouth at bedtime Mirtazapine 30 mg tablet Discontinued 30 mg PO AT BEDTIME September 06, 2024 1:00am February 23, 2025 11:09am Start: 12-09-2023 take 1 tablet by [facility] once daily mirtazapine (Remeron) 15 MG tablet Take 15 mg by mouth Nightly. 12/09/2023 Active 1 ml morphine sulfate 4 mg/ml injection (8 sources) Opioid Agonist Start: 03-13-2023 End: 03-13-2023 morphine sulfate (PF) injection 4 mg Start: 12-26-2022 End: 12-26-2022 morphine sulfate (PF) inject ion 4 mg Start: 02-19-2022 End: 02-22-2022 take 0.5-1 tablets by mouth every four hours as needed for pain morphine (MSIR) 15 MG tablet Indications: Ureterolithiasis Take 0.5-1 tablets by mouth every 4 hours as needed for Pain (pain not responding to meloxicam and tylenol) for up to 3 days. 8 tablet 0 02/19/2022 02/22/2022 Active Start: 02-19-2022 morphine injec tion 8 mg naproxen 500 mg oral tablet (9 sources) Nonsteroidal Anti-inflammatory Drug Start: 02-11-2020 End: 05-28-2022 take 1 tablet by mouth twice daily as needed naproxen (NAPROSYN) 500 mg tablet Indications: Carpal tunnel syndrome, bilateral Take 1 tablet by mouth twice daily as needed. Take with food. 60 tablet 2 02/11/2020 05/28/2022 Discontinued Comment on above: Take 1 tablet by papito twice daily as needed. Take with food. ondansetron 4 mg disintegrating oral tablet (18 sources) Serotonin-3 Receptor Antagonist Start: 09-06-2024 End: 02-23-2025 take 1 tablet by mouth every eight hours as needed for nausea Ondansetron 4 mg tablet,disintegra ting Discontinued 4 mg PO EVERY 8 HOURS NEEDED as needed for Nausea September 06, 2024 1:00am February 23, 2025 11:09am Start: 03-13-2023 End: 03-13-2023 ondansetron (Zofran) injecti on 4 mg Start: 12-26-2022 End: 12-26-2022 ondansetron (Zofran) injecti on 4 mg Start: 12-26-2022 End: 12-26-2022 ondansetron (Zofran) injecti on 4 mg Start: 02-19-2022 take 1-2 tablets by mouth three times daily as needed for nausea ondansetron (ZOFRAN) 4 MG tablet Take 1-2 tablets by mouth 3 times daily as needed for Nausea or Vomiting 15 tablet 0 02/19/2022 Active Start: 02-19-2022 End: 02-19-2022 take 1-2 tablets by mouth four times daily as needed for nausea ondansetron (ZOFRAN) 4 MG tablet Indications: Nausea , Supervision of other normal , antepartum , Amenorrhea Take 1-2 tablets by mouth 4 times daily as needed for Nausea or Vomiting 20 tablet 1 02/19/2022 Active Start: 02-19-2022 End: 02-19-2022 ondansetron (ZOFRAN) injecti on 4 mg Start: 05-14-2017 End: 02-19-2022 take 1 tablet by mouth every eight hours as needed for nausea ondansetron (ZOFRAN) 4 MG tablet Indications: Nausea , Supervision of other normal , antepartum , Amenorrhea Take 1 tablet by mouth every 8 hours as needed for Nausea or Vomiting 20 tablet 1 05/14/2017 02/19/2022 Discontinued (REORDER) ondansetron ODT (Zofran-ODT) disintegrating tablet 4 mg (2 sources) Start: 03-14-2023 End: 03-15-2023 take 1 tablet by mouth every eight hours as needed for nausea and vomiting ondansetron ODT (Zofran-ODT) disintegrating tablet 4 mg 24 hr oxybutynin chloride 10 mg extended release oral tablet (11 sources) Cholinergic Muscarinic Antagonist Start: 03-18-2023 End: 07-02-2023 take 1 tablet by mouth once daily oxybutynin XL (Ditropan XL) 10 MG 24 hr tablet Indications: Ureteral calculus, left Take 1 tablet (10 mg) by mouth daily. Do not crush, chew, or split. 30 tablet 0 03/18/2023 07/02/2023 Discontinued (Therapy completed) Start: 03-15-2023 End: 04-14-2023 take 1 tablet by mouth once daily oxybutynin XL (Ditropan XL) 5 MG 24 hr tablet Take 1 tablet (5 mg) by mouth daily. Do not crush, chew, or split. 30 tablet 0 03/15/2023 04/14/2023 Active polyethylene glycol 3350 16773 mg powder for oral solution (2 sources) Osmotic Laxative Start: 03-14-2023 End: 03-15-2023 take 17 g by mouth every twenty-four hours as needed for constipation polyethylene glycol (PEG) 3350 (Miralax) packet 17 g MV-Min-Fe Fum-FA-DHA ( 1 PO) (20 sources) Start: 05-14-2017 End: 02-13-2024 MV-Min-Fe Fum-FA-DHA ( 1 PO) Take 200 mg by mouth in the morning. 0 05/14/2017 02/13/2024 Discontinued (Med list cleanup) Start: 05-14-2017 MV-Mi n-Fe Fum-FA-DHA ( 1 PO) Take 200 mg by mouth in the morning. 0 05/14/2017 Suspended Start: 05-14-2017 MV-Mi n-Fe Fum-FA-DHA ( 1 PO) Take 200 mg by mouth in the morning. 0 05/14/2017 Active sertraline 50 mg oral tablet (7 sources) Serotonin Reuptake Inhibitor Start: 09-04-2023 End: 12-25-2023 take 1 tablet by mouth once daily sertraline (Zoloft) 50 MG tablet Indications: Anxiety and depression Take 1 tablet (50 mg) by mouth daily. 30 tablet 0 09/04/2023 12/25/2023 Discontinued (Therapy completed) 50 ml sodium chloride 9 mg/ml injection (20 sources) Start: 08-30-2023 End: 08-30-2023 sodium chloride 0.9 % bolus 1,000 mL Start: 04-18-2023 End: 04-18-2023 sodium chloride 0.9 % bolus 1,000 mL Start: 03-29-2023 End: 03-29-2023 sodium chloride 0.9 % infusi on Start: 03-29-2023 End: 03-29-2023 take 5-40 mL intravenously every twelve hours sodium chloride 0.9% (NS) flush 5-40 mL Start: 06-12-2022 0.9 % sodium c hloride infusion Start: 03-14-2022 End: 03-14-2022 0.9 % sodium chloride bolus tamsulosin hydrochloride 0.4 mg oral capsule (18 sources) alpha-Adrenergic Ariel Start: 03-15-2023 End: 07-02-2023 take 1 capsule by mouth once daily tamsulosin (Flomax) 0.4 MG 24 hr capsule Take 1 capsule (0.4 mg) by mouth daily. 30 capsule 1 03/29/2023 07/02/2023 Discontinued (Therapy completed) Start: 12-01-2021 take 1 capsule by [facility] once daily tamsulosin (FLOMAX) 0.4 MG capsule Take 1 capsule by mouth daily 14 capsule 0 12/01/2021 Active traZODone hydrochloride 50 mg oral tablet (1 source) Serotonin Reuptake Inhibitor Start: 12-10-2019 End: 04-19-2021 take 1 tablet by mouth once daily at bedtime traZODone (DESYREL) 50 mg tablet Take 1 tablet by mouth daily at bedtime. 30 tablet 11 12/10/2019 04/19/2021 Discontinued (Course of therapy completed) Problems Active Problems Problem Classification Problem Date Documented Da te Episodic/Chronic Abdominal pain (9 sources) Unspecified abdominal pain; Translations: [Left flank pain] Onset: 02-19-2022 Episodic Anxiety disorders (20 sources) Mixed anxiety and depressive disorder; Translations: [Anxiety disorder, unspecified] Onset: 02-06-2010 10-02-2019 Chronic Attention-deficit, conduct, and disruptive behavior disorders (2 sources) Other symptoms and signs involving appearance and behavior; Translations: [Other symptoms and signs involving appearance and behavior] Onset: 07-06-2022 Episodic Essential hypertension (20 sources) Essential hypertension; Translations: [Essential (primary) hypertension] Onset: 04-15-2019 04-15-2019 Chronic Genitourinary congenital anomalies (20 sources) Medullary sponge kidney; 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] Onset: 12-19-2021 Chronic Genitourinary symptoms and ill-defined conditions (4 sources) Presence of urogenital implants; Translations: [Other postprocedural status] Onset: 04-18-2023 04-18-2023 Chronic Genitourinary symptoms and ill-defined conditions (3 sources) Hematuria, unspecified; Translations: [Scalding pain on urination ] Onset: 04-18-2023 Episodic Immunizations and screening for infectious disease (14 sources) Viral screening status; Translations: [Encounter for screening for other viral diseases] Onset: 07-09-2023 Episodic Malposition; malpresentation (8 sources) Unstable lie; Translations: [Maternal care for unstable lie, not applicable or unspecified] Onset: 10-22-2017 Resolved: 01-06-2018 01-06-2018 Episodic Menstrual disorders (2 sources) Amenorrhea, unspecified; Translations: [Amenorrhea] Onset: 05-14-2017 Chronic Miscellaneous mental health disorders (4 sources) Dissociative convulsions; Translations: [Conversion disorder with seizures or convulsions] Onset: 08-30-2023 08-30-2023 Chronic Mood disorders (10 sources) Depression; Translations: [Recurrent major depression in partial remission] Onset: 05-10-2016 Resolved: 01-06-2018 Chronic Mood disorders (20 sources) Mood disorders; Translations: [Depression, unspecified] Onset: 07-02-2023 Resolved: 2024 Nutritional deficiencies (20 sources) Vitamin D deficiency; Translations: [Vitamin D deficiency, unspecified] Onset: 03-15-2023 Chronic Other aftercare (1 source) Post-discharge follow-up; Translations: [Encounter for follow-up examination after completed treatment for conditions other than malignant neoplasm] Episodic Other aftercare (2 sources) Other long term care administrator (current) drug therapy; Translations: [Other fpc (current) drug therapy] Onset: 07-09-2022 Episodic Other complications of (3 sources) Maternal obesity complicating , childbirth and the puerperium, antepartum; Translations: [Obesity complicating , unspecified trimester] 11-29-2017 Chronic Other complications of (8 sources) History of third degree perineal laceration; Translations: [Supervision of with other poor reproductive or obstetric history, unspecified trimester] Onset: 06-10-2017 Resolved: 01-06-2018 01-06-2018 Episodic Other connective tissue disease (1 source) Achilles tendinitis; Translations: [Achilles tendinitis, unspecified leg] 03-03-2025 Episodic Other connective tissue disease (1 source) Achilles tendinitis, left leg; Translations: [Achilles tendinitis, left leg] Onset: 02-25-2025 Episodic Other connective tissue disease (1 source) Achilles tendinitis, right leg; Translations: [Achilles tendinitis, right leg] Onset: 02-04-2025 Episodic Other gastrointestinal disorders (3 sources) Diarrhea; Translations: [Diarrhea, unspecified] 09-15-2024 Episodic Other nervous system disorders (20 sources) Bilateral carpal tunnel syndrome; Translations: [Carpal tunnel syndrome, bilateral upper limbs] Onset: 03-22-2021 03-22-2021 Chronic Other nervous system disorders (2 sources) Other specified disorders of brain; Translations: [Other specified disorders of brain] Onset: 07-09-2022 Chronic Other nervous system disorders (1 source) Other acute postprocedural pain; Translations: [Postoperative pain] Onset: 01-06-2019 Episodic Other nervous system disorders (3 sources) Postoperative pain ; Translations: [Other acute postprocedural pain] 09-28-2016 Episodic Other non-traumatic joint disorders (2 sources) Pain in elbow; Translations: [Pain in left elbow] Episodic Other nutritional; endocrine; and metabolic disorders (10 sources) Obese class II; Translations: [Obesity, unspecified] Onset: 12-19-2021 Chronic Other nutritional; endocrine; and metabolic disorders (3 sources) Severe obesity; Translations: [Morbid (severe) obesity due to excess calories] Onset: 07-04-2022 07-04-2022 Chronic Other nutritional; endocrine; and metabolic disorders (2 sources) Morbid (severe) obesity due to excess calories; Translations: [Morbid (severe) obesity due to excess calories] Onset: 07-09-2022 Chronic Other nutritional; endocrine; and metabolic disorders (2 sources) Body mass index (BMI) 40.0-44.9, adult; Translations: [Body mass index [BMI] 40.0-44.9, adult] Onset: 07-09-2022 Chronic Other screening for suspected conditions (not mental disorders or infectious disease) (16 sources) Cancer cervix screening status; Translations: [Encounter for screening for malignant neoplasm of cervix] Onset: 2024 2024 Episodic Other upper respiratory disease (3 sources) Bronchospasm; Translations: [Acute bronchospasm] Onset: 07-04-2022 07-04-2022 Episodic Other upper respiratory disease (2 sources) Unspecified disorder of nose and nasal sinuses; Translations: [Unspecified disorder of nose and nasal sinuses] Onset: 07-09-2022 Episodic Other upper respiratory infections (8 sources) Laryngitis; Translations: [Acute laryngitis] Episodic Residual codes; unclassified (1 source) Clouded consciousness; Translations: [Disorientation, unspecified] Episodic Residual codes; unclassified (2 sources) Altered mental status, unspecified; Translations: [Altered mental status, unspecified] Onset: 07-09-2022 Episodic Residual codes; unclassified (2 sources) Unspecified symptoms and signs involving cognitive functions and awareness; Translations: [Unsp symptoms and signs w cognitive functions and awareness] Onset: 07-09-2022 Episodic Residual codes; unclassified (2 sources) Disorientation, unspecified; Translations: [Disorientation, unspecified] Onset: 07-09-2022 Episodic Substance-related disorders (20 sources) Tobacco user; Translations: [Nicotine dependence, unspecified, uncomplicated] Onset: 06-10-2017 03-22-2021 Chronic Substance-related disorders (3 sources) Marijuana user; Translations: [Cannabis use, unspecified, uncomplicated] Onset: 07-04-2022 07-04-2022 Episodic Unclassified (2 sources) Letter for School/Work; Translations: [Letter for School/Work] Onset: 12-25-2023 Unclassified (3 sources) No history of clinical finding in subject 09-18-2015 Viral infection (8 sources) Genital herpes simplex; Translations: [Herpesviral infection of urogenital system, unspecified] Onset: 07-04-2022 07-04-2022 Chronic Viral infection (20 sources) Condyloma acuminatum of the anogenital region; Translations: [Anogenital (venereal) warts] Onset: 10-01-2017 10-01-2017 Episodic Past or Other Problems Problem Classification Problem Date Documented Date Episodic/Chronic Abdominal hernia (20 sources) Hernia of anterior abdominal wall; Translations: [Ventral hernia without obstruction or gangrene] Onset: 05-10-2016 Episodic Administrative/social admission (11 sources) Legal problem; Translations: [Problems related to other legal circumstances] Onset: 06-10-2017 06-10-2017 Episodic Allergic reactions (2 sources) Allergy to other foods; Translations: [Allergy to other foods] Onset: 12-01-2021 Episodic Bacterial infection; unspecified site (5 sources) Chlamydial infection; Translations: [Chlamydial infection, unspecified] Onset: 07-12-2014 Resolved: 05-10-2016 09-11-2021 Episodic Calculus of urinary tract (20 sources) Kidney stone; Translations: [Calculus of kidney] Onset: 12-01-2021 Resolved: 06-14-2023 Episodic Conditions associated with dizziness or vertigo (5 sources) Vertigo; Translations: [Dizziness and giddiness] Onset: 07-09-2022 Episodic Contraceptive and procreative management (5 sources) Patient encounter status; Translations: [Encounter for other general counseling and advice on contraception] Onset: 01-02-2010 Resolved: 01-02-2010 01-02-2010 Episodic Epilepsy; convulsions (13 sources) Neurological finding; Translations: [Unspecified convulsions] Onset: 07-09-2022 Episodic Hemorrhoids (3 sources) Hemorrhoids; Translations: [Unspecified hemorrhoids] Onset: 03-13-2024 Episodic Intestinal infection (11 sources) Clostridioides difficile infection; Translations: [Enterocolitis due to Clostridium difficile, not specified as recurrent] Onset: 05-16-2016 05-16-2016 Episodic Mycoses (10 sources) Tinea corporis; Translations: [Tinea corporis] Onset: 07-18-2021 07-18-2021 Episodic Nausea and vomiting (2 sources) Nausea; Translations: [Nausea] Onset: 10-27-2024 Episodic Noninfectious gastroenteritis (11 sources) Chronic diarrhea; Translations: [Noninfective gastroenteritis and colitis, unspecified] Onset: 05-10-2016 05-10-2016 Episodic Normal and/or delivery (8 sources) Encounter for supervision of other normal , unspecified trimester; Translations: [Normal ] Onset: 01-05-2013 Resolved: 01-06-2018 Episodic Comment on above: System added from do cumentation. Status documented as Yes on Admission Other complications of (5 sources) Vomiting of , unspecified; Translations: [Unspecified vomiting of , unspecified as to episode of care or not applicable] Onset: 01-05-2013 Resolved: 07-09-2014 09-11-2021 Episodic Other complications of (5 sources) Varicella non-immune; Translations: [Supervision of other high risk pregnancies, unspecified trimester] Onset: 01-07-2013 Resolved: 05-10-2016 09-11-2021 Episodic Other complications of (10 sources) Rubella non-immune; Translations: [Supervision of other high risk pregnancies, unspecified trimester] Onset: 01-07-2013 Resolved: 05-10-2016 05-10-2016 Episodic Other complications of (5 sources) High risk ; Translations: [Supervision of other high risk pregnancies, unspecified trimester] Onset: 07-12-2014 Resolved: 05-10-2016 09-11-2021 Episodic Other connective tissue disease (12 sources) Neurodisability; Translations: [Other symptoms and signs involving the nervous system] Onset: 12-25-2023 12-25-2023 Episodic Other infections; including parasitic (11 sources) History of sexually transmitted disease; Translations: [Personal history of other infectious and parasitic diseases] Onset: 06-10-2017 06-18-2017 Episodic Other infections; including parasitic (2 sources) Personal history of other infectious and parasitic diseases; Translations: [Personal history of other infectious and parasitic diseases] Onset: 12-01-2021 Episodic Other infections; including parasitic (5 sources) Infestation by Sarcoptes scabiei paige hominis; Translations: [Scabies] Onset: 11-15-2014 Resolved: 05-10-2016 05-10-2016 Episodic Other lower respiratory disease (12 sources) Chronic cough; Translations: [Chronic cough] Onset: 03-22-2021 03-22-2021 Episodic Other skin disorders (10 sources) Skin irritation ; Translations: [Other skin changes] Onset: 07-18-2021 07-18-2021 Episodic Residual codes; unclassified (11 sources) History of clinical finding in subject; Translations: [Personal history of other specified conditions] Onset: 01-05-2013 Resolved: 01-06-2018 06-10-2017 Episodic Residual codes; unclassified (11 sources) Disturbance of attention; Translations: [Other general symptoms and signs] Onset: 04-15-2019 04-15-2019 Episodic Residual codes; unclassified (3 sources) Amnesia; Translations: [Other amnesia] Episodic Residual codes; unclassified (5 sources) Family history of hereditary disease; Translations: [Family history of other specified conditions] Onset: 01-05-2013 Resolved: 07-09-2014 09-11-2021 Episodic Residual codes; unclassified (1 source) Disorientated; Translations: [Disorientation, unspecified] Episodic Screening and history of mental health and substance abuse codes (20 sources) H/O: psychiatric disorder; Translations: [Personal history of other mental and behavioral disorders] Onset: 10-21-2014 10-21-2014 Episodic Syncope (16 sources) Near syncope; Translations: [Syncope and collapse] Onset: 04-15-2019 04-15-2019 Episodic Urinary tract infections (9 sources) Acute cystitis; Translations: [Acute cystitis without hematuria] Onset: 06-12-2022 Episodic NEGATED: Highlighted row has been ruled out!Unclassified (1 source) No known active problems 05-14-2017 Results Test Name Value Interpretation Reference Range Facility Absolute lymphocyte countOrd ered By: Madan Jeter on 03-03-2025 Lymphocytes Auto (Unsp spec) [#/Vol] 3.13 10*3/uL 0.83-4.51 [facility] Absolute neutrophil countOrd ered By: Madan Jeter on 03-03-2025 Neutrophils (Bld) [#/Vol] 6.3 10*3/uL 2.0-7.7 [facility] Anion gap in Serum or Plasma Ordered By: Madan Jeter on 03-03-2025 Anion gap [Moles/Vol] 16 mmol/L High 5-15 [facility] Automated lymphocyte count a s percentage of total leukocytesOrdered By: Madan Jeter on 03-03-2025 Lymphocytes/100 WBC Auto (Unsp spec) 30.7 % - [facility] BUN/creatinine ratioOrdered By: Madan Jeter on 03-03-2025 Urea nitrogen/Creatinine [Mass ratio] 15.2 mg/mg 10- [facility] Basic Metabolic Profile (BMP )on 03-03-2025 BUN/CRE 15.2 RATIO Normal - [facility] Comment on above: Performed By: #### L [id number], L100.0100, L500.2500 ####[facility] [address] [place], [address] Calcium [Mass/Vol] 9.4 mg/dL Normal 7.6-11.0 [place] Comment on above: Performed By: #### L [id number], L100.0100, L500.2500 ####[facility] [address] [place], [address] Chloride [Moles/Vol] 105 mmol/L Normal 98-108 [facility] Comment on above: Performed By: #### L [id number], L100.0100, L500.2500 ####[facility] [address] [place], [address] CO2 [Moles/Vol] 18.3 mmol/L Low 21.0-32.0 [facility] Comment on above: Performed By: #### L [id number], L100.0100, L500.2500 ####[facility] [address] [place], [address] Creatinine [Mass/Vol] 0.81 mg/dL Normal 0.70-1.20 [facility] Comment on above: Performed By: #### L [id number], L100.0100, L500.2500 ####[facility] [address] [place], [address] ECRCL 110.43 ml/min Normal 50-250 [facility] Comment on above: Performed By: #### L [id number], L100.0100, [id number] ####[facility] [address] [place], [address] GAP 16 High 5-15 [facility] Comment on above: Performed By: #### L [id number], L100.0100, L500.2500 ####[facility] [address] [place], [address] GFR/1.73 sq M.predicted among non-blacks MDRD (S/P/Bld) [Vol rate/Area] 98 mL/min/{1.73_m2} Normal >60 [facility] Comment on above: Result Comment: mL/m in/1.73m2 CKD-EPI Creatinine Equation (2020) Performed By: #### L [id number], L100.0100, L500.2500 ####[facility] [address] [place], [address] Glucose [Mass/Vol] 107 mg/dL High 70-99 [place] Comment on above: Performed By: #### L [id number], L100.0100, L500.2500 ####[facility] [address] [place], [address] Potassium [Moles/Vol] 4.1 mmol/L Normal 3.3-5.1 [facility] Comment on above: Performed By: #### L [id number], L100.0100, L500.2500 ####[facility] [address] [place], [address] Sodium [Moles/Vol] 138 mmol/L Normal 133-145 [place] Comment on above: Performed By: #### L [id number], L100.0100, L500.2500 ####[facility] [address] [place], [address] Urea nitrogen [Mass/Vol] 12 mg/dL Normal 4-19 [facility] Comment on above: Performed By: #### L [id number], L100.0100, [id number] ####[facility] [address] [place], [address] Basophil percentageOrdered B y: Madan Jeter on 03-03-2025 Basophils/100 WBC (Bld) 0.6 % 0-1 [facility] CBC W/Diff, Automatedon 02-14 Absolute Lymph 3.13 X10 3/uL Normal 0.83-4.51 [facility] Comment on above: Performed By: #### L [id number], L100.0100, L500.2500 ####[facility] [address] [place], [address] Absolute Neut 6.3 X10 3/uL Normal 2.0-7.7 [facility] Comment on above: Performed By: #### L [id number], L100.0100, L500.2500 ####[facility] [address] [place], [address] Basophils/100 WBC (Bld) 0.6 % Normal 0-1 [facility] Comment on above: Performed By: #### L [id number], L100.0100, L500.2500 ####[facility] [address] [place], [address] Eosinophils/100 WBC (Bld) 1.1 % Normal 0-5 [facility] Comment on above: Performed By: #### L [id number], L100.0100, L500.2500 ####[facility] [address] [place], [address] Erythrocyte distribution width (RBC) [Ratio] 12.4 % Normal 11.6-14.6 [facility] Comment on above: Performed By: #### L [id number], L100.0100, L500.2500 ####[facility] [address] [place], [address] Hematocrit (Bld) [Volume fraction] 41.4 % Normal 37-47 [facility] Comment on above: Performed By: #### L [id number], L100.0100, L500.2500 ####[facility] [address] [place], [address] Hemoglobin (Bld) [Mass/Vol] 14.4 g/dL Normal 12.0-15.0 [facility] Comment on above: Performed By: #### L [id number], L100.0100, L500.2500 ####[facility] [address] [place], [address] IG% 0.300 Normal 0.0-0.9 [facility] Comment on above: Result Comment: IG% - Immature Granulocytes (promyelocytes, myelocytes and metamyelocytes) > 1% indicates that a LEFT SHIFT is Present. Performed By: #### L [id number], L100.0100, L500.2500 ####[facility] [address] [place], [address] Lymphocytes/100 WBC (Bld) 30.7 % Normal 19-41 [facility] Comment on above: Performed By: #### L [id number], L100.0100, L500.2500 ####[place] [facility] [address] [place], [address] MCH (RBC) [Entitic mass] 31.5 pg Normal 27.0-32.0 [facility] Comment on above: Performed By: #### L [id number], L100.0100, L500.2500 ####[facility] [address] [place], [address] MCHC (RBC) [Mass/Vol] 34.8 g/dL Normal 32-36 [facility] Comment on above: Performed By: #### L [id number], L100.0100, L500.2500 ####[facility] [address] [place], [address] MCV (RBC) [Entitic vol] 90.6 fL Normal 81-99 [facility] Comment on above: Performed By: #### L [id number], L100.0100, L500.2500 ####[facility] [address] [place], [address] Monocytes/100 WBC (Bld) 5.2 % Normal 0-10 [facility] Comment on above: Performed By: #### L [id number], L100.0100, L500.2500 ####[facility] [address] [place], [address] Neutrophils/100 WBC (Bld) 62.1 % Normal 47-70 [facility] Comment on above: Performed By: #### L [id number], L100.0100, [id number] ####[facility] [address] [place], [address] Nucleated RBC (Bld) [#/Vol] 0 10*3/uL Normal 0-5 [facility] Comment on above: Performed By: #### L 501.4021, L100.0100, L500.2500 ####[facility] [address] [place], [address] Platelet mean volume (Bld) [Entitic vol] 9.4 fL Normal 6.2-12.0 [facility] Comment on above: Performed By: #### L 501.4021, L100.0100, L500.2500 ####[facility] [address] [place], [address] Platelets (Bld) [#/Vol] 310 10*3/uL Normal 150-450 [facility] Comment on above: Performed By: #### L 501.4021, L100.0100, L500.2500 ####[facility] [address] [place], [address] RBC (Bld) [#/Vol] 4.57 10*6/uL Normal 4.2-5.4 [facility] Comment on above: Performed By: #### L 501.4021, L100.0100, L500.2500 ####[facility] [address] [place], [address] RDW SD 41.0 fl Normal 35.1-43.9 [facility] Comment on above: Performed By: #### L 501.4021, L100.0100, L500.2500 ####[facility] [address] [place], [address] WBC (Bld) [#/Vol] 10.2 10*3/uL Normal 4.4-11.0 [facility] Comment on above: Performed By: #### L 501.4021, L100.0100, L500.2500 ####[facility] [address] [place], [address] Carbon dioxide, total [Moles /volume] in Central venous bloodOrdered By: Madan Jeter on 03-03-2025 CO2 [Moles/Vol] 18.3 mmol/L Low 21.0-32.0 [facility] Chest PA and Lateralon 03-03 Chest PA and Lateral [facility] Imaging Services [address] [place] [address] Chest PA and Lateral MR#: [id number] Acct: [id number] Name: KENIA ORTIZ Rep #: [id number] : 1990 F 34 From: Suleman weber MD PCP: MARJORIE Mi Status: REG ER Study: Chest PA and Lateral Date of Exam: 03/03/25 Exam# [id number] Ordering Dr: Madan Jeter DO PROCEDURE: CHEST PA AND LATERAL 03/03/2025 REASON FOR EXAM: HYPERTENSION TECHNIQUE: CHEST PA AND LATERAL COMPARISON: Prior study dated September 06, 2024. FINDINGS: Hardware: EKG electrodes are seen. Heart: The heart size is normal. Mediastinum: The mediastinal contour is unremarkable. Lungs: The lungs are clear. Scattered calcified granulomas. Bones: The bones are unremarkable. RAD/Chest PA and Lateral IMPRESSION: NO ACUTE FINDINGS. Reading Location: [place] [address] CC: SITE HEAD-C Comfort Pantoja; Dr. Madan Jeter DO Tree Trimmer: Signed Normal [facility] Chloride assayOrdered By: Kye Jeter on 03-03-2025 Chloride [Moles/Vol] 105 mmol/L 98-108 [facility] Emergency Department Summary on 03-03-2025 Emergency Department Summary [facility] Medical Records Department [address] [place] [address] Emergency Department Summary 03/03/25 MR#: [id number] Acct: [id number] Name: KENIA ORTIZ Rep #: [id number] : 1990 34 From: Madan Jeter DO PCP: MARJORIE Mi Status:DEP ER Location: ED HPI History of Present Illness Chief Complaint: Hypertension Informant: patient Onset/Context/Timing Onset: Weeks (1) Context: Gradual Onset Timing: Continuous Quality: Dizziness Location: Generalized Worsened by: Nothing Relieved by: Nothing Narrative Narrative: Patient presents with elevated blood pressure that has been constant for the past week. Patient states he feels dizzy at times. Patient states she has been taking her hypertensive medication. Patient admits to intermittent headaches. Patient denies any chest pain or shortness of breath. Patient states she has increasing anxiety due to her upcoming surgery for bone spur removal and Achilles tendonitis. Patient denies any nausea or vomiting. [facility] Medical History Wears glasses Depression Anxiety Substance abuse Restless legs Migraine headache Seizures Vapes nicotine containing substance History of pain when walking History of edema Hypertension Home Medications ???Medication ???Instructions ???Recorded ???Last Taken ???Type acyclovir 400 mg tablet (Zovirax) 400 mg PO BID 04/10/18 04/16/18 H istory ibuprofen 600 mg tablet 600 mg PO Q8H PRN PRN pain 5 Unknown History lisinopril 10 mg tablet 10 mg PO DAILY 02/23/25 Unknown Hi story Allergy/AdvReac Type Severity Reaction Status Date / Time vaccine adjuvant emulsion Allergy Severe ALMOST Verified 03/03/25 07:52 [id number].1 raspberry Allergy Hives Verified 03/03/25 07:52 Surgical History (Updated 02/23/25 @ 11:18 by Rubina Mondragon) Hx of wisdom tooth extraction Hx of umbilical hernia repair Hx laparoscopic cholecystectomy Social History (Updated 03/03/25 @ 08:[address] Madan Jeter, DO) Smoking Status: Current every day smoker tobacco type: e-cigarettes alcohol intake: current alcohol intake frequency: holidays/special occasions only ROS ROS ED Constitutional Constitutional ED: Denies chills or fever(s) Eyes Eyes: Denies blurry vision or change in vision ENT ENT ED: Denies rhinorrhea or sore throat Cardiovascular Cardiovascular: Denies chest pain or palpitations Respiratory/Chest Respiratory/Chest: Denies cough or dyspnea Gastrointestinal Gastrointestinal: Denies nausea or vomiting Genitourinary Genitourinary ED: Denies dysuria or hematuria Musculoskeletal Musculoskeletal: Reports back pain; Denies neck pain Integumentary Denies abscess or rash Neurologic Neurologic: Reports headache(s); Denies weakness Allergic/Immunologic Allergic/Immunologic ED: Denies mouth swelling or urticaria EXAM Physical Exam Const Vital Signs: 03/03/25 07:51 03/03/25 08:56 03/03/25 09:51 Temperature 98 F 98.9 F Temperature Source Temporal Oral Pulse Rate 82 78 Respiratory Rate 14 14 Respiratory Effort Normal Respiratory Pattern Normal Blood Pressure 142/99 H 141/87 H Blood Pressure Mean 113 105 Pulse Ox 98 98 Oxygen Delivery Method Room Air Room Air Positive well nourished and well developed Constitutional Narrative: BMI is 34.2 General Appearance ED: well developed and NAD HEENT Reports moist mucous membranes Neck supple and no JVD Resp normal respiratory effort and clear to auscultation bilaterally Cardio regular rate and regular rhythm GI non-tender and non-distended Palpation: soft Neuro oriented x3, CN's II-XII intact bilaterally and no sensory deficits noted Sensorium / Orientation: alert Motor Exam: strength 5/5 throughout Psych mental status grossly normal MDM MDM MDM Narrative Medical decision making narrative: Differential diagnosis includes uncontrolled hypertension, hypertensive urgency, dehydration, electrolyte abnormality, pneumonia, and bronchitis. EKG will be obtained to assess for cardiac dysrhythmia and cardiac ischemia. Chest x-ray will be obtained to assess for pneumonia and bronchitis. CBC will be obtained to assess for leukocytosis and anemia. Basic metabolic profile will be obtained to assess for electrolyte abnormality and renal function. High-sensitivity troponin will be obtained to assess for cardiac ischemia. History Record Review Additional record(s) reviewed:: Prior ED visit and Prior labs Lab Data Attestation: I reviewed the patient's lab results. Lab results narrative: The CBC was reviewed and was within normal limits. Basic metabolic profile was reviewed and was essentially within normal limits. High-sensitivity troponin was reviewed and (more content not included)... Normal [facility] Eosinophil percentageOrdered By: Madan Jeter on 03-03-2025 Eosinophils/100 WBC (Bld) 1.1 % 0-5 [facility] Erythrocyte distribution wid th ratioOrdered By: Madan Jeter on 03-03-2025 Erythrocyte distribution width (RBC) [Ratio] 12.4 % 11.6-14.6 [facility] Erythrocyte distribution wid th standard deviationOrdered By: Madan Jeter on 03-03-2025 Erythrocyte distribution width (RBC) [Ratio] 41.0 fl 35.1-43.9 [facility] Glomerular filtration rate ( GFR) estimation/1.73 sq m using serum, plasma, or whole bOrdered By: Madan Jeter on 03-03-2025 GFR/1.73 sq M.predicted among non-blacks MDRD (S/P/Bld) [Vol rate/Area] 98 mL/min/{1.73_m2} >60 [facility] Comment on above: mL/min/1.73m2 CKD-EP I Creatinine Equation (2020) Hematocrit Auto (Bld) [Volum e fraction]Ordered By: Madan Jeter on 03-03-2025 Hematocrit (Bld) [Volume fraction] 41.4 % 37-47 [facility] Hemoglobin measurementOrdere d By: Madan Jeter on 03-03-2025 Hemoglobin (Bld) [Mass/Vol] 14.4 g/dL 12.0-15.0 [facility] Immature granulocytes/100 WB C Auto (Bld)Ordered By: Madan Jeter on 03-03-2025 Immature granulocytes/100 WBC (Bld) 0.300 % 0.0-0.9 [facility] Comment on above: IG% - Immature Granu locytes (promyelocytes, myelocytes and metamyelocytes) > 1% indicates that a LEFT SHIFT is Present. L501.4021on 03-03-2025 Trop T High Sen < 6 Normal <=14 [facility] Comment on above: Performed By: #### L 501.4021, L100.0100, L500.2500 ####[facility] [address] [place], [address] MCV (mean corpuscular volume ) determinationOrdered By: Madan Jeter on 03-03-2025 MCV (RBC) [Entitic vol] 90.6 fL 81-99 [facility] Mean corpuscular hemoglobin (MCH) determinationOrdered By: Madan Jeter on 03-03-2025 MCH (RBC) [Entitic mass] 31.5 pg 27.0-32.0 [facility] Mean corpuscular hemoglobin concentration (MCHC) determinationOrdered By: Madan Jeter on 03-03-2025 MCHC (RBC) [Mass/Vol] 34.8 g/dL 32-36 [facility] Mean platelet volume determi nationOrdered By: Madan Jeter on 03-03-2025 Platelet mean volume (Bld) [Entitic vol] 9.4 fL 6.2-12.0 [facility] Monocyte percentageOrdered B y: Madan Jeter on 03-03-2025 Monocytes/100 WBC (Bld) 5.2 % 0-10 [facility] Neutrophil percentageOrdered By: Madan Jeter on 03-03-2025 Neutrophils/100 WBC (Bld) 62.1 % 47-70 [facility] Nucleated red blood cell per centageOrdered By: Madan Jeter on 03-03-2025 Nucleated RBC/100 WBC (Bld) [Ratio] 0 % 0-5 [facility] Platelet countOrdered By: Kye Jeter on 03-03-2025 Platelets (Bld) [#/Vol] 310 10*3/uL 150-450 [facility] Potassium measurement (mass/ volume)Ordered By: Madan Jeter on 03-03-2025 Potassium (Unsp spec) [Mass/Vol] 4.1 mmol/L 3.3-5.1 [facility] RBC Auto (Bld) [#/Vol]Ordere d By: Madan Jeter on 03-03-2025 RBC (Bld) [#/Vol] 4.57 10*6/uL 4.2-5.4 [facility] Serum creatinine measurement (mass/volume)Ordered By: Madan Jeter on 03-03-2025 Creatinine [Mass/Vol] 0.81 mg/dL 0.70-1.20 [facility] Serum glucose measurement (m ass/volume)Ordered By: Madan Jeter on 03-03-2025 Glucose [Mass/Vol] 107 mg/dL High 70-99 [place] Serum or plasma calcium cortez urement (mass/volume)Ordered By: Madan Jeter on 03-03-2025 Calcium [Mass/Vol] 9.4 mg/dL 7.6-11.0 [place] Serum or plasma urea nitroge n measurement (mass/volume)Ordered By: Madan Jeter on 03-03-2025 Urea nitrogen [Mass/Vol] 12 mg/dL 4-19 [facility] Sodium levelOrdered By: Madan Jeter on 03-03-2025 Sodium [Moles/Vol] 138 mmol/L 133-145 [place] Troponin T.cardiac [Mass/vol ume] in Serum or Plasma by High sensitivity methodOrdered By: Madan Jeter on 03-03-2025 Troponin T.cardiac High sensitivity method [Mass/Vol] < 6 ng/L <14 [facility] White blood cell (WBC) count Ordered By: Madan Jeter on 03-03-2025 WBC (Bld) [#/Vol] 10.2 10*3/uL 4.4-11.0 [facility] Absolute lymphocyte countOrd ered By: Comfortper Pantoja on 02-22-2025 Lymphocytes Auto (Unsp spec) [#/Vol] 2.73 10*3/uL 0.83-4.51 [facility] Absolute neutrophil countOrd ered By: Comfortper Pantoja on 02-22-2025 Neutrophils (Bld) [#/Vol] 6.2 10*3/uL 2.0-7.7 [facility] Anion gap in Serum or Plasma Ordered By: Comfort Pantoja on 02-22-2025 Anion gap [Moles/Vol] 11 mmol/L 5-15 [facility] Automated lymphocyte count a s percentage of total leukocytesOrdered By: Comfort Pantoja on 02-22-2025 Lymphocytes/100 WBC Auto (Unsp spec) 28.2 % 19-41 [facility] BUN/creatinine ratioOrdered By: Comfortper Pantoja on 02-22-2025 Urea nitrogen/Creatinine [Mass ratio] 13.7 mg/mg 10-20 [facility] Basophil percentageOrdered B y: Comfort Pantoja on 02-22-2025 Basophils/100 WBC (Bld) 0.6 % 0-1 [facility] Bilirubin, totalOrdered By: Comfort Pantoja on 02-22-2025 Bilirubin [Mass/Vol] 0.38 mg/dL 0.00-1.30 [facility] CBC W/Diff, Automatedon Absolute Lymph 2.73 X10 3/uL Normal 0.83-4.51 [facility] Comment on above: Performed By: #### L 100.0100, L500.4050 ####[facility] [address] [place], [address] Absolute Neut 6.2 X10 3/uL Normal 2.0-7.7 [facility] Comment on above: Performed By: #### L 100.0100, L500.4050 ####[facility] [address], [address] Basophils/100 WBC (Bld) 0.6 % Normal 0-1 [facility] Comment on above: Performed By: #### L 100.0100, L500.4050 ####[facility] [address] [place], [address] Eosinophils/100 WBC (Bld) 1.7 % Normal 0-5 [facility] Comment on above: Performed By: #### L 100.0100, L500.4050 ####[facility] [address] [place], [address] Erythrocyte distribution width (RBC) [Ratio] 12.8 % Normal 11.6-14.6 [facility] Comment on above: Performed By: #### L 100.0100, L500.4050 ####[facility] [address] [place], [address] Hematocrit (Bld) [Volume fraction] 41.3 % Normal 37-47 [facility] Comment on above: Performed By: #### L 100.0100, L500.4050 ####[facility] [address] [place], [address] Hemoglobin (Bld) [Mass/Vol] 14.7 g/dL Normal 12.0-15.0 [facility] Comment on above: Performed By: #### L 100.0100, L500.4050 ####[facility] [address] [place], [address] IG% 0.500 Normal 0.0-0.9 [facility] Comment on above: Result Comment: IG% - Immature Granulocytes (promyelocytes, myelocytes and metamyelocytes) > 1% indicates that a LEFT SHIFT is Present. Performed By: #### L 100.0100, L500.4050 ####[facility] [address] [place], [address] Lymphocytes/100 WBC (Bld) 28.2 % Normal 19-41 [facility] Comment on above: Performed By: #### L 100.0100, L500.4050 ####[facility] [address] [place], [address] MCH (RBC) [Entitic mass] 31.9 pg Normal 27.0-32.0 [facility] Comment on above: Performed By: #### L 100.0100, L500.4050 ####[facility] [address] [place], [address] MCHC (RBC) [Mass/Vol] 35.6 g/dL Normal 32-36 [facility] Comment on above: Performed By: #### L 100.0100, L500.4050 ####[facility] [address] [place], [address] MCV (RBC) [Entitic vol] 89.6 fL Normal 81-99 [facility] Comment on above: Performed By: #### L 100.0100, L500.4050 ####[facility] [address] [place], [address] Monocytes/100 WBC (Bld) 5.4 % Normal 0-10 [facility] Comment on above: Performed By: #### L 100.0100, L500.4050 ####[facility] [address] [place], [address] Neutrophils/100 WBC (Bld) 63.6 % Normal 47-70 [facility] Comment on above: Performed By: #### L 100.0100, L500.4050 ####[facility] [address] [place], [address] Nucleated RBC (Bld) [#/Vol] 0 10*3/uL Normal 0-5 [facility] Comment on above: Performed By: #### L 100.0100, L500.4050 ####[facility] [address] [place], [address] Platelet mean volume (Bld) [Entitic vol] 9.7 fL Normal 6.2-12.0 [facility] Comment on above: Performed By: #### L 100.0100, L500.4050 ####[facility] [address] [place], [address] Platelets (Bld) [#/Vol] 283 10*3/uL Normal 150-450 [facility] Comment on above: Performed By: #### L 100.0100, L500.4050 ####[facility] [address] [place], [address] RBC (Bld) [#/Vol] 4.61 10*6/uL Normal 4.2-5.4 [facility] Comment on above: Performed By: #### L 100.0100, L500.4050 ####[facility] [address] [place], [address] RDW SD 41.4 fl Normal 35.1-43.9 [facility] Comment on above: Performed By: #### L 100.0100, L500.4050 ####[facility] [address] [place], [address] WBC (Bld) [#/Vol] 9.7 10*3/uL Normal 4.4-11.0 [place] Comment on above: Performed By: #### L 100.0100, L500.4050 ####[facility] [address] [place], [address] Carbon dioxide, total [Moles /volume] in Central venous bloodOrdered By: Comfort Pantoja on 02-22-2025 CO2 [Moles/Vol] 20.9 mmol/L Low 21.0-32.0 [facility] Chloride assayOrdered By: Phuc Pantoja on 02-22-2025 Chloride [Moles/Vol] 106 mmol/L 98-108 [facility] Comprehensive Metabolic Prof ilon 02-22-2025 Albumin [Mass/Vol] 4.1 g/dL Normal 3.5-5.0 [place] Comment on above: Performed By: #### L 100.0100, L500.4050 ####[facility] [address] [place], [address] Albumin/Globulin [Mass ratio] 1.4 {ratio} Normal 0.9-2.4 [facility] Comment on above: Performed By: #### L 100.0100, L500.4050 ####[facility] [address] [place], [address] ALK PHOS 66 U/L Normal 35-104 [facility] Comment on above: Performed By: #### L 100.0100, L500.4050 ####[facility] [address] [place], [address] ALT [Catalytic activity/Vol] 12 U/L Normal <=34 [facility] Comment on above: Performed By: #### L 100.0100, L500.4050 ####[facility] [address] [place], [address] AST [Catalytic activity/Vol] 18 U/L Normal <=31 [facility] Comment on above: Performed By: #### L 100.0100, L500.4050 ####[facility] [address] [place], [address] Bilirubin [Mass/Vol] 0.38 mg/dL Normal 0.00-1.30 [facility] Comment on above: Performed By: #### L 100.0100, L500.4050 ####[facility] [address] [place], [address] BUN/CRE 13.7 RATIO Normal 10-20 [facility] Comment on above: Performed By: #### L 100.0100, L500.4050 ####[facility] [address] [place], [address] Calcium [Mass/Vol] 9.4 mg/dL Normal 7.6-11.0 [place] Comment on above: Performed By: #### L 100.0100, L500.4050 ####[facility] [address] [place], [address] Chloride [Moles/Vol] 106 mmol/L Normal 98-108 [facility] Comment on above: Performed By: #### L 100.0100, L500.4050 ####[facility] [address] [place], [address] CO2 [Moles/Vol] 20.9 mmol/L Low 21.0-32.0 [facility] Comment on above: Performed By: #### L 100.0100, L500.4050 ####[facility] [address] [place], [address] Creatinine [Mass/Vol] 0.73 mg/dL Normal 0.70-1.20 [facility] Comment on above: Performed By: #### L 100.0100, L500.4050 ####[facility] [address] [place], [address] GAP 11 Normal 5-15 [facility] Comment on above: Performed By: #### L 100.0100, L500.4050 ####[facility] [address] [place], [address] GFR/1.73 sq M.predicted among non-blacks MDRD (S/P/Bld) [Vol rate/Area] 111 mL/min/{1.73_m2} Normal >60 [facility] Comment on above: Result Comment: mL/m in/1.73m2 CKD-EPI Creatinine Equation (2020) Performed By: #### L 100.0100, L500.4050 ####[facility] [address] [place], [address] Globulin (S) [Mass/Vol] 2.9 g/dL Normal 2.2-4.2 [facility] Comment on above: Performed By: #### L 100.0100, L500.4050 ####[facility] [address] [place], [address] Glucose [Mass/Vol] 111 mg/dL High 70-99 [place] Comment on above: Performed By: #### L 100.0100, L500.4050 ####[facility] [address] [place], [address] Potassium [Moles/Vol] 3.7 mmol/L Normal 3.3-5.1 [facility] Comment on above: Performed By: #### L 100.0100, L500.4050 ####[facility] [address] [place], [address] Sodium [Moles/Vol] 138 mmol/L Normal 133-145 [place] Comment on above: Performed By: #### L 100.0100, L500.4050 ####[facility] [address] [place], [address] T PROT 7.0 g/dL Normal 5.9-8.4 [facility] Comment on above: Performed By: #### L 100.0100, L500.4050 ####[facility] [address] [place], [address] Urea nitrogen [Mass/Vol] 10 mg/dL Normal 4-19 [facility] Comment on above: Performed By: #### L 100.0100, L500.4050 ####[facility] [address] [place], [address] Eosinophil percentageOrdered By: Comfort Pantoja on 02-22-2025 Eosinophils/100 WBC (Bld) 1.7 % 0-5 [facility] Erythrocyte distribution wid th ratioOrdered By: Comfortper Pantoja on 02-22-2025 Erythrocyte distribution width (RBC) [Ratio] 12.8 % 11.6-14.6 [facility] Erythrocyte distribution wid th standard deviationOrdered By: Comfort Pantoja on 02-22-2025 Erythrocyte distribution width (RBC) [Ratio] 41.4 fl 35.1-43.9 [facility] Glomerular filtration rate ( GFR) estimation/1.73 sq m using serum, plasma, or whole bOrdered By: Comfort Pantoja on 02-22-2025 GFR/1.73 sq M.predicted among non-blacks MDRD (S/P/Bld) [Vol rate/Area] 111 mL/min/{1.73_m2} >60 [facility] Comment on above: mL/min/1.73m2 CKD-EP I Creatinine Equation (2020) Hematocrit Auto (Bld) [Volum e fraction]Ordered By: Comfort Pantoja on 02-22-2025 Hematocrit (Bld) [Volume fraction] 41.3 % 37-47 [facility] Hemoglobin measurementOrdere d By: Comfort Pantoja on 02-22-2025 Hemoglobin (Bld) [Mass/Vol] 14.7 g/dL 12.0-15.0 [facility] Immature granulocytes/100 WB C Auto (Bld)Ordered By: Comfort Pantoja on 02-22-2025 Immature granulocytes/100 WBC (Bld) 0.500 % 0.0-0.9 [facility] Comment on above: IG% - Immature Granu locytes (promyelocytes, myelocytes and metamyelocytes) > 1% indicates that a LEFT SHIFT is Present. Laboratory - Chemistry and C hemistry - challengeOrdered By: Comfort Pantoja on 02-22-2025 AST [Catalytic activity/Vol] 18 U/L <32 [facility] MCV (mean corpuscular volume ) determinationOrdered By: Comfort Pantoja on 02-22-2025 MCV (RBC) [Entitic vol] 89.6 fL 81-99 [facility] Mean corpuscular hemoglobin (MCH) determinationOrdered By: Comfort Pantoja on 02-22-2025 MCH (RBC) [Entitic mass] 31.9 pg 27.0-32.0 [facility] Mean corpuscular hemoglobin concentration (MCHC) determinationOrdered By: Comfort Pantoja on 02-22-2025 MCHC (RBC) [Mass/Vol] 35.6 g/dL 32-36 [facility] Mean platelet volume determi nationOrdered By: Comfort Pantoja on 02-22-2025 Platelet mean volume (Bld) [Entitic vol] 9.7 fL 6.2-12.0 [facility] Monocyte percentageOrdered B y: Comfort Pantoja on 02-22-2025 Monocytes/100 WBC (Bld) 5.4 % 0-10 [facility] Neutrophil percentageOrdered By: Comfortper Pantoja on 02-22-2025 Neutrophils/100 WBC (Bld) 63.6 % 47-70 [facility] Nucleated red blood cell per centageOrdered By: Comfort Pantoja on 02-22-2025 Nucleated RBC/100 WBC (Bld) [Ratio] 0 % 0-5 [facility] Platelet countOrdered By: Phuc Pantoja on 02-22-2025 Platelets (Bld) [#/Vol] 283 10*3/uL 150-450 [facility] Potassium measurement (mass/ volume)Ordered By: Comfort Pantoja on 02-22-2025 Potassium (Unsp spec) [Mass/Vol] 3.7 mmol/L 3.3-5.1 [facility] RBC Auto (Bld) [#/Vol]Ordere d By: Comfort Pantoja on 02-22-2025 RBC (Bld) [#/Vol] 4.61 10*6/uL 4.2-5.4 [facility] Serum creatinine measurement (mass/volume)Ordered By: Comfort Pantoja on 02-22-2025 Creatinine [Mass/Vol] 0.73 mg/dL 0.70-1.20 [facility] Serum globulin measurementOr dered By: Comfort Pantoja on 02-22-2025 Globulin (S) [Mass/Vol] 2.9 g/dL 2.2-4.2 [facility] Serum glucose measurement (m ass/volume)Ordered By: Comfort Pantoja on 02-22-2025 Glucose [Mass/Vol] 111 mg/dL High 70-99 [place] Serum or plasma alanine mathew otransferase (ALT) measurementOrdered By: Comfort Pantoja on 02-22-2025 ALT [Catalytic activity/Vol] 12 U/L <35 [facility] Serum or plasma albumin cortez urement (mass/volume)Ordered By: Comfort Pantoja on 02-22-2025 Albumin [Mass/Vol] 4.1 g/dL 3.5-5.0 [place] Serum or plasma albumin/glob ulin mass ratioOrdered By: Comfort Pantoja on 02-22-2025 Albumin/Globulin [Mass ratio] 1.4 {ratio} 0.9-2.4 [facility] Serum or plasma alkaline rupal sphatase measurementOrdered By: Comfort Pantoja on 02-22-2025 ALP [Catalytic activity/Vol] 66 U/L 35-104 [facility] Serum or plasma calcium cortez urement (mass/volume)Ordered By: Comfort Pantoja on 02-22-2025 Calcium [Mass/Vol] 9.4 mg/dL 7.6-11.0 [place] Serum or plasma urea nitroge n measurement (mass/volume)Ordered By: Comfort Pantoja on 02-22-2025 Urea nitrogen [Mass/Vol] 10 mg/dL 4-19 [facility] Sodium levelOrdered By: Triston Pantoja on 02-22-2025 Sodium [Moles/Vol] 138 mmol/L 133-145 [place] Total proteinOrdered By: Eduardo Pantoja on 02-22-2025 Protein [Mass/Vol] 7.0 g/dL 5.9-8.4 [place] White blood cell (WBC) count Ordered By: Comfort Pantoja on 02-22-2025 WBC (Bld) [#/Vol] 9.7 10*3/uL 4.4-11.0 [place] Lower Ext Joint Only (Routin e)on 01-27-2025 Lower Ext Joint Only (Routine) [facility] Imaging Services [address] [place], [place] [id number] Lower Ext Joint Only (Routine) MR#: [id number] Acct: [id number] Name: KENIA ORTIZ Rep #: [id number] : 1990 F 34 From: Paolo Guzmán PCP: Care Physician,No Primary Status: REG CLI Study: Lower Ext Joint Only (Routine) Date of Exam: 0 01/27/25 Exam# [id number] Ordering Dr: Damaso Swift DPM PROCEDURE: LOWER EXT JOINT ONLY (ROUTINE) 01/27/2025 REASON FOR EXAM: ACHILLES TENDINITIS. Lateral pain. TECHNIQUE: MRI of the right ankle without contrast. Multiplanar and multisequence images were obtained without IV contrast administration. COMPARISON: COMPARISON : None provided. FINDINGS: Bone Marrow: No abnormal osseous signal is noted. A moderate-sized enthesophyte is seen in the posterior calcaneus. Effusion: No joint effusion is seen. Soft Tissues: No soft tissue mass or fluid collection is noted. Ligaments and Tendons: At the level of the posterior calcaneal enthesophyte, slight signal inhomogeneity of the distal Achilles tendon is noted, albeit without thickening or adjacent edema. Otherwise, no pathology is noted. No ligament tear is seen No significant arthritic process is seen. Satisfactory osseous alignment is seen throughout. MRI/Lower Ext Joint Only (Routine) IMPRESSION: 1. Posterior calcaneal enthesophyte, with slight signal inhomogeneity of the adjacent very distal Achilles tendon. Reading Location: [place] [address] CC: DPYvonne Swift; No Primary Care Physician Tree Trimmer: Signed Normal [facility] Lower Ext Joint Only (Routine) [facility] Imaging Services [address] [place] [address] Lower Ext Joint Only (Routine) MR#: [id number] Acct: [id number] Name: KENIA ORTIZ Rep #: [id number] : 1990 F 34 From: Paolo Guzmán PCP: Care Physician,No Primary Status: REG CLI Study: Lower Ext Joint Only (Routine) Date of Exam: 0 01/27/25 Exam# [id number] Ordering Dr: Damaso Swift DPM PROCEDURE: LOWER EXT JOINT ONLY (ROUTINE) 01/27/2025 REASON FOR EXAM: BILATERAL ACHILLES TENDINITIS. Left heel pain. TECHNIQUE: MRI of the left ankle without contrast. Multiplanar and multisequence images were obtained without IV contrast administration. COMPARISON: COMPARISON : None provided. FINDINGS: Bone Marrow: There is no abnormal bone marrow signal. A moderately large posterior calcaneal enthesophyte is seen Effusion: No joint effusion is seen Soft Tissues: No soft tissue mass is noted. No free or loculated fluid collection is evident Ligaments and Tendons: Normal appearance of the Achilles tendon is otherwise seen. No tendon pathology is seen. No ligament tear is seen Mild degenerative changes are seen of the talonavicular articulation. Minimal degenerative changes are seen elsewhere. MRI/Lower Ext Joint Only (Routine) IMPRESSION: 1. Moderately large posterior calcaneal enthesophyte. 2. No tendon pathology is noted. 3. Degenerative changes. Reading Location: [place] [address] CC: DPM Dr. Damaso Swift; No Primary Care Physician Tree Trimmer: Signed Normal [facility] Absolute lymphocyte countOrd ered By: Damaso Swift on 12-07-2024 Lymphocytes Auto (Unsp spec) [#/Vol] 3.14 10*3/uL 0.83-4.51 [facility] Absolute neutrophil countOrd ered By: Damaso Swift on 12-07-2024 Neutrophils (Bld) [#/Vol] 6.5 10*3/uL 2.0-7.7 [facility] Anion gap in Serum or Plasma Ordered By: Damaso Swift on 12-07-2024 Anion gap [Moles/Vol] 12 mmol/L 5-15 [facility] Automated lymphocyte count a s percentage of total leukocytesOrdered By: Damaso Swift on 12-07-2024 Lymphocytes/100 WBC Auto (Unsp spec) 30.6 % 19- [facility] BUN/creatinine ratioOrdered By: Damaso Swift on 12-07-2024 Urea nitrogen/Creatinine [Mass ratio] 15.4 mg/mg 10-20 [facility] Basophil percentageOrdered B y: Damaso Swift on 12-07-2024 Basophils/100 WBC (Bld) 0.4 % 0-1 [facility] Bilirubin, totalOrdered By: Damaso Swift on 12-07-2024 Bilirubin [Mass/Vol] 0.58 mg/dL 0.00-1.30 [facility] CBC W/Diff, Automatedon 11-15 Absolute Lymph 3.14 X10 3/uL Normal 0.83-4.51 [facility] Comment on above: Performed By: #### L 500.4050, L100.0100 #### [facility] [address] [place], [address] Absolute Neut 6.5 X10 3/uL Normal 2.0-7.7 [facility] Comment on above: Performed By: #### L 500.4050, L100.0100 #### [facility] [address] [place], [address] Basophils/100 WBC (Bld) 0.4 % Normal 0-1 [facility] Comment on above: Performed By: #### L 500.4050, L100.0100 #### [facility] [address] [place], [address] Eosinophils/100 WBC (Bld) 1.0 % Normal 0-5 [facility] Comment on above: Performed By: #### L 500.4050, L100.0100 #### [facility] [address] [place], [address] Erythrocyte distribution width (RBC) [Ratio] 12.4 % Normal 11.6-14.6 [facility] Comment on above: Performed By: #### L 500.4050, L100.0100 #### [facility] [address] [place], [address] Hematocrit (Bld) [Volume fraction] 43.9 % Normal 37-47 [facility] Comment on above: Performed By: #### L 500.4050, L100.0100 #### [facility] [address] [place], [address] Hemoglobin (Bld) [Mass/Vol] 15.0 g/dL Normal 12.0-15.0 [facility] Comment on above: Performed By: #### L 500.4050, L100.0100 #### [facility] [address] [place], [address] IG% 0.200 Normal 0.0-0.9 [facility] Comment on above: Result Comment: IG% - Immature Granulocytes (promyelocytes, myelocytes and metamyelocytes) > 1% indicates that a LEFT SHIFT is Present. Performed By: #### L 500.4050, L100.0100 #### [facility] [address] [place], [address] Lymphocytes/100 WBC (Bld) 30.6 % Normal 19-41 [facility] Comment on above: Performed By: #### L 500.4050, L100.0100 #### [facility] [address] [place], [address] MCH (RBC) [Entitic mass] 31.1 pg Normal 27.0-32.0 [facility] Comment on above: Performed By: #### L 500.4050, L100.0100 #### [facility] [address] [place], [address] MCHC (RBC) [Mass/Vol] 34.2 g/dL Normal 32-36 [facility] Comment on above: Performed By: #### L 500.4050, L100.0100 #### [facility] [address] [place], [address] MCV (RBC) [Entitic vol] 90.9 fL Normal 81-99 [facility] Comment on above: Performed By: #### L 500.4050, L100.0100 #### [facility] [address] [place], [address] Monocytes/100 WBC (Bld) 4.7 % Normal 0-10 [facility] Comment on above: Performed By: #### L 500.4050, L100.0100 #### [facility] [address] [place], [address] Neutrophils/100 WBC (Bld) 63.1 % Normal 47-70 [facility] Comment on above: Performed By: #### L 500.4050, L100.0100 #### [facility] [address] [place], [address] Nucleated RBC (Bld) [#/Vol] 0 10*3/uL Normal 0-5 [facility] Comment on above: Performed By: #### L 500.4050, L100.0100 #### [facility] [address] [place], [address] Platelet mean volume (Bld) [Entitic vol] 9.5 fL Normal 6.2-12.0 [facility] Comment on above: Performed By: #### L 500.4050, L100.0100 #### [facility] [address] [place], [address] Platelets (Bld) [#/Vol] 292 10*3/uL Normal 150-450 [facility] Comment on above: Performed By: #### L 500.4050, L100.0100 #### [facility] [address] [place], [address] RBC (Bld) [#/Vol] 4.83 10*6/uL Normal 4.2-5.4 [facility] Comment on above: Performed By: #### L 500.4050, L100.0100 #### [facility] [address] [place], [address] RDW SD 41.2 fl Normal 35.1-43.9 [facility] Comment on above: Performed By: #### L 500.4050, L100.0100 #### [facility] [address] [place], [address] WBC (Bld) [#/Vol] 10.3 10*3/uL Normal 4.4-11.0 [facility] Comment on above: Performed By: #### L 500.4050, L100.0100 #### [facility] [address] [place], [address] Carbon dioxide, total [Moles /volume] in Central venous bloodOrdered By: Damaso Swift on 12-07-2024 CO2 [Moles/Vol] 23.0 mmol/L 21.0-32.0 [facility] Chloride assayOrdered By: Wili Swift on 12-07-2024 Chloride [Moles/Vol] 104 mmol/L 98-108 [facility] Comprehensive Metabolic Prof ilon 12-07-2024 Albumin [Mass/Vol] 4.3 g/dL Normal 3.5-5.0 [place] Comment on above: Performed By: #### L 500.4050, L100.0100 #### [facility] [address] [place], [address] Albumin/Globulin [Mass ratio] 1.5 {ratio} Normal 0.9-2.4 [facility] Comment on above: Performed By: #### L 500.4050, L100.0100 #### [facility] [address] [place], [address] ALK PHOS 67 U/L Normal 35-104 [facility] Comment on above: Performed By: #### L 500.4050, L100.0100 #### [facility] [address] [place], [address] ALT [Catalytic activity/Vol] 16 U/L Normal <=34 [facility] Comment on above: Performed By: #### L 500.4050, L100.0100 #### [facility] [address] [place], [address] AST [Catalytic activity/Vol] 20 U/L Normal <=31 [facility] Comment on above: Performed By: #### L 500.4050, L100.0100 #### [facility] [address] [place], [address] Bilirubin [Mass/Vol] 0.58 mg/dL Normal 0.00-1.30 [facility] Comment on above: Performed By: #### L 500.4050, L100.0100 #### [facility] [address] [place], [address] BUN/CRE 15.4 RATIO Normal 10-20 [facility] Comment on above: Performed By: #### L 500.4050, L100.0100 #### [facility] [address] [place], [address] Calcium [Mass/Vol] 9.8 mg/dL Normal 7.6-11.0 [place] Comment on above: Performed By: #### L 500.4050, L100.0100 #### [facility] [address] [place], [address] Chloride [Moles/Vol] 104 mmol/L Normal 98-108 [facility] Comment on above: Performed By: #### L 500.4050, L100.0100 #### [facility] [address] [place], [address] CO2 [Moles/Vol] 23.0 mmol/L Normal 21.0-32.0 [facility] Comment on above: Performed By: #### L 500.4050, L100.0100 #### [facility] [address] [place], [address] Creatinine [Mass/Vol] 0.84 mg/dL Normal 0.70-1.20 [facility] Comment on above: Performed By: #### L 500.4050, L100.0100 #### [facility] [address] [place], [address] GAP 12 Normal 5-15 [facility] Comment on above: Performed By: #### L 500.4050, L100.0100 #### [facility] [address] [place], [address] GFR/1.73 sq M.predicted among non-blacks MDRD (S/P/Bld) [Vol rate/Area] 94 mL/min/{1.73_m2} Normal >60 [facility] Comment on above: Result Comment: mL/m in/1.73m2 CKD-EPI Creatinine Equation (2020) Performed By: #### L 500.4050, L100.0100 #### [facility] [address] [place], [address] Globulin (S) [Mass/Vol] 2.8 g/dL Normal 2.2-4.2 [facility] Comment on above: Performed By: #### L 500.4050, L100.0100 #### [facility] [address] [place], [address] Glucose [Mass/Vol] 92 mg/dL Normal 70-99 [place] Comment on above: Performed By: #### L 500.4050, L100.0100 #### [facility] [address] [place], [address] Potassium [Moles/Vol] 4.3 mmol/L Normal 3.3-5.1 [facility] Comment on above: Performed By: #### L 500.4050, L100.0100 #### [facility] [address] [place], [address] Sodium [Moles/Vol] 139 mmol/L Normal 133-145 [place] Comment on above: Performed By: #### L 500.4050, L100.0100 #### [facility] [address] [place], [address] T PROT 7.2 g/dL Normal 5.9-8.4 [facility] Comment on above: Performed By: #### L 500.4050, L100.0100 #### [facility] [address] [place], [address] Urea nitrogen [Mass/Vol] 13 mg/dL Normal 4-19 [facility] Comment on above: Performed By: #### L 500.4050, L100.0100 #### [facility] [address] [place], [address] Eosinophil percentageOrdered By: Damaso Swift on 12-07-2024 Eosinophils/100 WBC (Bld) 1.0 % 0-5 [facility] Erythrocyte distribution wid th ratioOrdered By: Damaso Swift on 12-07-2024 Erythrocyte distribution width (RBC) [Ratio] 12.4 % 11.6-14.6 [facility] Erythrocyte distribution wid th standard deviationOrdered By: Damaso Swift on 12-07-2024 Erythrocyte distribution width (RBC) [Entitic vol] 41.2 fL 35.1-43.9 [facility] Erythrocyte distribution width (RBC) [Ratio] 41.2 fl 35.1-43.9 [facility] GFR/1.73 sq M.predicted maryanne g non-blacks MDRD (S/P/Bld) [Vol rate/Area]Ordered By: Damaso Swift on 12-07-2024 Estimated GFR (MDRD) Non-Af Amer 94 >60 [facility] Comment on above: mL/min/1.73m2 CKD-EP I Creatinine Equation (2020) Glomerular filtration rate ( GFR) estimation/1.73 sq m using serum, plasma, or whole bOrdered By: Damaso Swift on 12-07-2024 GFR/1.73 sq M.predicted among non-blacks MDRD (S/P/Bld) [Vol rate/Area] 94 mL/min/{1.73_m2} >60 [facility] Comment on above: mL/min/1.73m2 CKD-EP I Creatinine Equation (2020) Hematocrit Auto (Bld) [Volum e fraction]Ordered By: Damaso Swift on 12-07-2024 Hematocrit (Bld) [Volume fraction] 43.9 % 37-47 [facility] Hemoglobin measurementOrdere d By: Damaso Swift on 12-07-2024 Hemoglobin (Bld) [Mass/Vol] 15.0 g/dL 12.0-15.0 [facility] Immature granulocytes/100 WB C Auto (Bld)Ordered By: Damaso Swift on 12-07-2024 Immature granulocytes/100 WBC (Bld) 0.200 % 0.0-0.9 [facility] Comment on above: IG% - Immature Granu locytes (promyelocytes, myelocytes and metamyelocytes) > 1% indicates that a LEFT SHIFT is Present. Laboratory - Chemistry and C hemistry - challengeOrdered By: Damaso Swift on 12-07-2024 AST [Catalytic activity/Vol] 20 U/L <32 [facility] Lymphocytes Auto (Unsp spec) [#/Vol]Ordered By: Damaso Swift on 12-07-2024 Lymphocytes (Bld) [#/Vol] 3.14 10*3/uL 0.83-4.51 [facility] Lymphocytes/100 WBC Auto (Un sp spec)Ordered By: Damaso Swift on 12-07-2024 Lymphocytes/100 WBC (Bld) 30.6 % 19-41 [facility] MCV (mean corpuscular volume ) determinationOrdered By: Damaso Swift on 12-07-2024 MCV (RBC) [Entitic vol] 90.9 fL 81-99 [facility] Mean corpuscular hemoglobin (MCH) determinationOrdered By: Damaso Swift on 12-07-2024 MCH (RBC) [Entitic mass] 31.1 pg 27.0-32.0 [facility] Mean corpuscular hemoglobin concentration (MCHC) determinationOrdered By: Damaso Swift on 12-07-2024 MCHC (RBC) [Mass/Vol] 34.2 g/dL 32-36 [facility] Mean platelet volume determi nationOrdered By: Damaso Swift on 12-07-2024 Platelet mean volume (Bld) [Entitic vol] 9.5 fL 6.2-12.0 [facility] Monocyte percentageOrdered B y: Damaso Swift on 12-07-2024 Monocytes/100 WBC (Bld) 4.7 % 0-10 [facility] Neutrophil percentageOrdered By: Damaso Swift on 12-07-2024 Neutrophils/100 WBC (Bld) 63.1 % 47-70 [facility] Nucleated red blood cell per centageOrdered By: Damaso wSift on 12-07-2024 Nucleated RBC/100 WBC (Bld) [Ratio] 0 % 0-5 [facility] Platelet countOrdered By: Wili Swift on 12-07-2024 Platelets (Bld) [#/Vol] 292 10*3/uL 150-450 [facility] Potassium (Unsp spec) [Mass/ Vol]Ordered By: Damaso Swift on 12-07-2024 Potassium [Moles/Vol] 4.3 mmol/L 3.3-5.1 [facility] Potassium measurement (mass/ volume)Ordered By: Damaso Swift on 12-07-2024 Potassium (Unsp spec) [Mass/Vol] 4.3 mmol/L 3.3-5.1 [facility] RBC Auto (Bld) [#/Vol]Ordere d By: Damaso Swift on 12-07-2024 RBC (Bld) [#/Vol] 4.83 10*6/uL 4.2-5.4 [facility] Serum creatinine measurement (mass/volume)Ordered By: Damaso Swift on 12-07-2024 Creatinine [Mass/Vol] 0.84 mg/dL 0.70-1.20 [facility] Serum globulin measurementOr dered By: Damaso Swift on 12-07-2024 Globulin (S) [Mass/Vol] 2.8 g/dL 2.2-4.2 [facility] Serum glucose measurement (m ass/volume)Ordered By: Damaso Swift on 12-07-2024 Glucose [Mass/Vol] 92 mg/dL 70-99 [place] Serum or plasma alanine mathew otransferase (ALT) measurementOrdered By: Damaso Swift on 12-07-2024 ALT [Catalytic activity/Vol] 16 U/L <35 [facility] Serum or plasma albumin cortez urement (mass/volume)Ordered By: Damaso Swift on 12-07-2024 Albumin [Mass/Vol] 4.3 g/dL 3.5-5.0 [place] Serum or plasma albumin/glob ulin mass ratioOrdered By: Damaso Swift on 12-07-2024 Albumin/Globulin [Mass ratio] 1.5 {ratio} 0.9-2.4 [facility] Serum or plasma alkaline rupal sphatase measurementOrdered By: Damaso Swift on 12-07-2024 ALP [Catalytic activity/Vol] 67 U/L 35-104 [facility] Serum or plasma calcium cortez urement (mass/volume)Ordered By: Damaso Swift on 12-07-2024 Calcium [Mass/Vol] 9.8 mg/dL 7.6-11.0 [place] Serum or plasma urea nitroge n measurement (mass/volume)Ordered By: Damaso Swift on 12-07-2024 Urea nitrogen [Mass/Vol] 13 mg/dL 4-19 [facility] Sodium levelOrdered By: Colin Swift on 12-07-2024 Sodium [Moles/Vol] 139 mmol/L 133-145 [place] Total proteinOrdered By: Saurabh Swift on 12-07-2024 Protein [Mass/Vol] 7.2 g/dL 5.9-8.4 [place] White blood cell (WBC) count Ordered By: Damaso Swift on 12-07-2024 WBC (Bld) [#/Vol] 10.3 10*3/uL 4.4-11.0 [facility] Urine Cultureon 09-08-2024 URC Below infection leve l. Mixed Gram Positive Organisms Blanding Count <1000 MIX[facility] Mixed contaminants. Submit a new specimen if indicated. Normal [facility] Comment on above: Performed By: #### M 100.2200 #### [facility] [address] [facility] [place], [place], [id number] 12 Lead EKGon 09-06-2024 12 Lead EKG [facility] Services [address] [place] [address] 12 Lead EKG 09/06/242037 MR#: [id number] Acct: [id number] Name: KENIA ORTIZ Rep #: [id number] : 1990 34 From: Óscar Mendez MD Attending Dr: Status: DEP ER Ordering Dr: Jane Raymundo DO Date: 09/06/24 Location: ED Sex: F C Admitted: Test Reason : NAUSEA N V Blood Pressure : */* mmHG Vent. Rate : 90 BPM Atrial Rate : 90 BPM P-R Int : 142 ms QRS Dur : 78 ms QT Int : 360 ms P-R-T Axes : 38 20 42 degrees QTcB Int : 440 ms Normal sinus rhythm Normal ECG Confirmed by ÓSCAR MENDEZ MD ([id number]), editor magazine BRIAN WISEMAN ([id number]) on 09/07/2024 8:25:29 AM Referred By: BREANNE Confirmed By: ÓSCAR MENDEZ MD 09/07/24 0825 Date Óscar Mendez MD CC: Dr. Jane Raymundo DO; No Primary Care Physician Signed Normal [facility] Abdomen/Pelvis W IV Cont ONL Yon 09-06-2024 Abdomen/Pelvis W IV Cont ONLY [facility] Imaging Services [address] [address] [place], [place] [address] Abdomen/Pelvis W IV Cont ONLY MR#: [id number] Acct: [id number] Name: KENIA ORTIZ Rep #: [id number] : 1990 F 34 From: Nima Francis MD PCP: Care Physician,No Primary Status: REG ER Study: Abdomen/Pelvis W IV Cont ONLY Date of Exam: Exam# [id number] Ordering Dr: Jane Raymundo DO [id number] EXAM: CT ABDOMEN AND PELVIS WITH INTRAVENOUS CONTRAST CLINICAL INDICATION: left sided abdominal pain, n/v/d TECHNIQUE: Helically acquired images were obtained of the abdomen and pelvis with intravenous contrast. This CT exam was performed using one or more of the following dose reduction techniques: automated exposure control, adjustment of the mA and/or kV according to patient size, and/or use of iterative reconstruction technique. CONTRAST: IV 100mL [id number] COMPARISON: 06/03/2016 FINDINGS: LOWER THORAX: Unremarkable. Lung bases are clear. No cardiomegaly. No significant pericardial effusion. ABDOMEN: LIVER: Liver is decreased in attenuation compatible with fatty infiltration. GALLBLADDER AND BILE DUCTS: Unremarkable. No calcified gallstones. No gallbladder distention or wall edema. No intra- or extrahepatic biliary ductal dilation. PANCREAS: Unremarkable. No focal cystic or solid mass. SPLEEN: Unremarkable. Normal size without focal cystic or solid mass. ADRENALS: Unremarkable. No nodules. KIDNEYS AND URETERS: There are nonobstructing calyceal stones in both kidneys. Normal renal size and position. STOMACH AND BOWEL: There are fluid-filled loops of large and small bowel which may represent enteritis with incipient diarrhea. No stomach or bowel distention. PELVIS: APPENDIX: No evidence of acute appendicitis. BLADDER: Unremarkable. REPRODUCTIVE: Unremarkable as visualized. No mass. ABDOMEN and PELVIS: INTRAPERITONEAL SPACE: Unremarkable. No ascites or other fluid collection. No free air. BONES/JOINTS: Unremarkable. No suspicious lytic or blastic abnormality. SOFT TISSUES: There is a ventral hernia which contains mesenteric fat. VASCULATURE: Unremarkable. Abdominal aorta is non-dilated. LYMPH NODES: Unremarkable. No enlarged lymph nodes. CT/Abdomen/Pelvis W IV Cont ONLY IMPRESSION: Fluid-filled loops of large and small bowel which may represent enteritis with incipient diarrhea. No other acute abnormalities are identified. Electronically Signed: Nima Francis MD at 23:07 EST , CC: Dr. Jane Raymundo, DO; No Primary Care Physician Tree Trimmer: Signed Normal [facility] Albumin to globulin ratioOrd ered By: Jane Raymundo on 09-06-2024 Albumin/Globulin [Mass ratio] 1.0 {ratio} 0.9-2.4 [facility] Bilirubin Test strip Ql (U)O rdered By: Jane Raymundo on 09-06-2024 Bilirubin Ql (U) Negative Negative [facility] Bilirubin, totalOrdered By: Jane Raymundo on 09-06-2024 Bilirubin [Mass/Vol] 1.00 mg/dL 0.20-1.00 [facility] Comment on above: For patients on eltr ombopag therapy, use of Dimension [place] TBIL is not recommended. Blood urea nitrogen (BUN)/cr eatinine ratioOrdered By: Jane Raymundo on 09-06-2024 Urea nitrogen/Creatinine [Mass ratio] 14.5 mg/mg - [facility] CBC-Complete Blood Cnt No Di ffon 09-06-2024 Erythrocyte distribution width (RBC) [Ratio] 13.3 % Normal 11.6-14.6 [facility] Comment on above: Performed By: #### L 501.2450, L501.4020, L500.4050, L100.0500 #### [facility] [address] [place], [address] Hematocrit (Bld) [Volume fraction] 44.8 % Normal 37-47 [facility] Comment on above: Performed By: #### L 501.2450, L501.4020, L500.4050, L100.0500 #### [facility] [address] [place], [address] Hemoglobin (Bld) [Mass/Vol] 15.2 g/dL High 12.0-15.0 [facility] Comment on above: Performed By: #### L 501.2450, L501.4020, L500.4050, L100.0500 #### [facility] [address] [place], [address] MCH (RBC) [Entitic mass] 30.0 pg Normal 27.0-32.0 [facility] Comment on above: Performed By: #### L 501.2450, L501.4020, L500.4050, L100.0500 #### [facility] [address] [place], [address] MCHC (RBC) [Mass/Vol] 33.9 g/dL Normal 32-36 [facility] Comment on above: Performed By: #### L 501.2450, L501.4020, L500.4050, L100.0500 #### [facility] [address] [place], [address] MCV (RBC) [Entitic vol] 88.4 fL Normal 81-99 [facility] Comment on above: Performed By: #### L 501.2450, L501.4020, L500.4050, L100.0500 #### [facility] [address] [place], [address] Platelet mean volume (Bld) [Entitic vol] 8.9 fL Normal 6.2-12.0 [facility] Comment on above: Performed By: #### L 501.2450, L501.4020, L500.4050, L100.0500 #### [facility] [address] [place], [address] Platelets (Bld) [#/Vol] 335 10*3/uL Normal 150-450 [facility] Comment on above: Performed By: #### L 501.2450, L501.4020, L500.4050, L100.0500 #### [facility] [address] [place], [address] RBC (Bld) [#/Vol] 5.07 10*6/uL Normal 4.2-5.4 [facility] Comment on above: Performed By: #### L 501.2450, L501.4020, L500.4050, L100.0500 #### [facility] [address] [place], [address] RDW SD 43.1 fl Normal 35.1-43.9 [facility] Comment on above: Performed By: #### L 501.2450, L501.4020, L500.4050, L100.0500 #### [facility] [address] [place], [address] WBC (Bld) [#/Vol] 19.0 10*3/uL High 4.4-11.0 [facility] Comment on above: Performed By: #### L 501.2450, L501.4020, L500.4050, L100.0500 #### [facility] [address] [place], [address] Carbon dioxide measurementOr dered By: Jane Raymundo on 09-06-2024 CO2 [Moles/Vol] 26.0 mmol/L 21.0-32.0 [facility] Chest 1 View (Portable)on Chest 1 View (Portable) [facility] Imaging Services [address] [place] [address] Chest 1 View (Portable) MR#: [id number] Acct: [id number] Name: KENIA ORTIZ Rep #: [id number] : 1990 F 34 From: Nima Francis MD PCP: Care Physician,No Primary Status: [facility] ER Study: Chest 1 View (Portable) Date of Exam: 09/06/24 Exam# [id number] Ordering Dr: Jane Raymundo DO [id number] EXAM: XR CHEST, 1 VIEW CLINICAL INDICATION: Syncope TECHNIQUE: Frontal view of the chest. COMPARISON: 08/11/2016 FINDINGS: LUNGS AND PLEURAL SPACES: Unremarkable. No consolidation or edema. No pneumothorax. No effusion. HEART: Unremarkable. Cardiac silhouette not enlarged. MEDIASTINUM: Central airways and mediastinal contour are unremarkable. BONES/JOINTS: Unremarkable. No acute fracture. SOFT TISSUES: Unremarkable. RAD/Chest 1 View (Portable) IMPRESSION: No radiographic evidence of acute cardiopulmonary disease. Electronically Signed: Nima Francis MD at 21:35 EST , CC: Dr. Jane Raymundo DO; No Primary Care Physician Tree Trimmer: Signed Normal [facility] Chloride measurementOrdered By: Jane Raymundo on 09-06-2024 Chloride [Moles/Vol] 102 mmol/L 98-107 [facility] Comprehensive Metabolic Prof ilon 09-06-2024 Albumin [Mass/Vol] 4.0 g/dL Normal 3.2-5.0 [place] Comment on above: Order Comment: 'TROP ' Serial specimen #1, #2 or #3: 1 Performed By: #### L 501.2450, L501.4020, L500.4050, L100.0500 #### [facility] [address] [place], [address] Albumin/Globulin [Mass ratio] 1.0 {ratio} Normal 0.9-2.4 [facility] Comment on above: Order Comment: 'TROP ' Serial specimen #1, #2 or #3: 1 Performed By: #### L 501.2450, L501.4020, L500.4050, L100.0500 #### [facility] [address] [place], [address] ALK P 79 U/L Normal 45-117 [facility] Comment on above: Order Comment: 'TROP ' Serial specimen #1, #2 or #3: 1 Performed By: #### L 501.2450, L501.4020, L500.4050, L100.0500 #### [facility] [address] [place], [address] ALT [Catalytic activity/Vol] 37 U/L Normal 13-56 [facility] Comment on above: Order Comment: 'TROP ' Serial specimen #1, #2 or #3: 1 Performed By: #### L 501.2450, L501.4020, L500.4050, L100.0500 #### [facility] [address] [place], [address] AST [Catalytic activity/Vol] 27 U/L Normal 15-37 [facility] Comment on above: Order Comment: 'TROP ' Serial specimen #1, #2 or #3: 1 Performed By: #### L 501.2450, L501.4020, L500.4050, L100.0500 #### [facility] [address] [place], [address] Bilirubin [Mass/Vol] 1.00 mg/dL Normal 0.20-1.00 [facility] Comment on above: Order Comment: 'TROP ' Serial specimen #1, #2 or #3: 1 Result Comment: For patients on eltrombopag therapy, use of Dimension [place] TBIL is not recommended. Performed By: #### L 501.2450, L501.4020, L500.4050, L100.0500 #### [facility] [address] [place], [address] BUN/CRE 14.5 RATIO Normal 10-20 [facility] Comment on above: Order Comment: 'TROP ' Serial specimen #1, #2 or #3: 1 Performed By: #### L 501.2450, L501.4020, L500.4050, L100.0500 #### [facility] [address] [place], [address] CA,Total 9.4 mg/dL Normal 8.5-10.1 [facility] Comment on above: Order Comment: 'TROP ' Serial specimen #1, #2 or #3: 1 Performed By: #### L 501.2450, L501.4020, L500.4050, L100.0500 #### [facility] [address] [place], [address] Chloride [Moles/Vol] 102 mmol/L Normal 98-107 [facility] Comment on above: Order Comment: 'TROP ' Serial specimen #1, #2 or #3: 1 Performed By: #### L 501.2450, L501.4020, L500.4050, L100.0500 #### [facility] [address] [place], [address] CO2 [Moles/Vol] 26.0 mmol/L Normal 21.0-32.0 [facility] Comment on above: Order Comment: 'TROP ' Serial specimen #1, #2 or #3: 1 Performed By: #### L 501.2450, L501.4020, L500.4050, L100.0500 #### [facility] [address] [place], [address] Creatinine [Mass/Vol] 0.89 mg/dL Normal 0.55-1.02 [facility] Comment on above: Order Comment: 'TROP ' Serial specimen #1, #2 or #3: 1 Result Comment: The validity of the calculated GFR GFRAA in patients over 70 years has not been determined. Clinical correlation is essential. Performed By: #### L 501.2450, L501.4020, L500.4050, L100.0500 #### [facility] [address] [place], [address] ECRCL 106.16 ml/min Normal [facility] Comment on above: Order Comment: 'TROP ' Serial specimen #1, #2 or #3: 1 Performed By: #### L 501.2450, L501.4020, L500.4050, L100.0500 #### [facility] [address] [place], [address] EST GFR - AA 93 mL/min Normal >60 [facility] Comment on above: Order Comment: 'TROP ' Serial specimen #1, #2 or #3: 1 Result Comment: Afri can Czech GFR Calc Performed By: #### L 501.2450, L501.4020, L500.4050, L100.0500 #### [facility] [address] [place], [address] GAP 10 Normal 5-15 [facility] Comment on above: Order Comment: 'TROP ' Serial specimen #1, #2 or #3: 1 Performed By: #### L 501.2450, L501.4020, L500.4050, L100.0500 #### [facility] [address] [place], [address] GFR/1.73 sq M.predicted among non-blacks MDRD (S/P/Bld) [Vol rate/Area] 77 mL/min/{1.73_m2} Normal >60 [facility] Comment on above: Order Comment: 'TROP ' Serial specimen #1, #2 or #3: 1 Result Comment: Non- GFR Calc Performed By: #### L 501.2450, L501.4020, L500.4050, L100.0500 #### [facility] [address] [place], [address] Globulin (S) [Mass/Vol] 3.9 g/dL Normal 2.2-4.2 [facility] Comment on above: Order Comment: 'TROP ' Serial specimen #1, #2 or #3: 1 Performed By: #### L 501.2450, L501.4020, L500.4050, L100.0500 #### [facility] [address] [place], [address] Glucose [Mass/Vol] 102 mg/dL Normal 74-106 [place] Comment on above: Order Comment: 'TROP ' Serial specimen #1, #2 or #3: 1 Result Comment: Fast ing Glucose result from 100 to 125 mg/dL suggests IMPAIRED HOMEOSTASIS per A.D.A. criteria. Performed By: #### L 501.2450, L501.4020, L500.4050, L100.0500 #### [facility] [address] [place], [address] Potassium [Moles/Vol] 3.2 mmol/L Low 3.5-5.1 [facility] Comment on above: Order Comment: 'TROP ' Serial specimen #1, #2 or #3: 1 Performed By: #### L 501.2450, L501.4020, L500.4050, L100.0500 #### [facility] [address] [place], [address] Sodium [Moles/Vol] 138 mmol/L Normal 136-145 [place] Comment on above: Order Comment: 'TROP ' Serial specimen #1, #2 or #3: 1 Performed By: #### L 501.2450, L501.4020, L500.4050, L100.0500 #### [facility] [address] [place], [address] T PROT 7.9 g/dL Normal 6.4-8.2 [facility] Comment on above: Order Comment: 'TROP ' Serial specimen #1, #2 or #3: 1 Performed By: #### L 501.2450, L501.4020, L500.4050, L100.0500 #### [facility] [address] [place], [address] Urea nitrogen [Mass/Vol] 13 mg/dL Normal 7-18 [facility] Comment on above: Order Comment: 'TROP ' Serial specimen #1, #2 or #3: 1 Performed By: #### L 501.2450, L501.4020, L500.4050, L100.0500 #### [facility] [address] [place], [address] Emergency Department Summary on 09-06-2024 Emergency Department Summary [facility] Medical Records Department [address] [place] [address] Emergency Department Summary 09/06/24 MR#: [id number] Acct: [id number] Name: KENIA ORTIZ Rep #: [id number] : 1990 34 From: Jane Raymundo DO PCP: Care Physician,No Primary Status:DEP ER Location: ED HPI History of Present Illness Chief Complaint: Nausea/Vomiting/Diarrh ea PFSH PFSH Medical History (Updated 09/06/24 @ 23:[address] Sheldon Grajeda DO) Seizure Hypertension Home Medications ???Medication ???Instructions ???Recorded ???Last Taken ???Type acyclovir 400 mg tablet (Zovirax) 400 mg PO BID 04/10/18 04/16/18 History ibuprofen 400 mg tablet 800 mg (2 x 400 mg) PO Q8H PRN PRN 04/17/18 Unknown Rx Pain #30 tabs oxycodone-acetaminophe n 5 mg-325 1 tab PO Q6H PRN PRN Pain 3 days 04/17/18 Unknown Rx mg tablet ##5 mirtazapine 30 mg tablet 30 mg PO QHS 09/06/24 Unknown History ondansetron 4 mg disintegrating 4 mg PO Q8H PRN PRN Nausea #10 tabs 09/06/24 Unknown Rx tablet Allergy/AdvReac Type Severity Reaction Status Date / Time vaccine adjuvant emulsion Allergy Severe ALMOST Verified 04/17/18 12:26 [id number] raspberry Allergy Hives Verified 04/17/18 12:26 Social History Smoking Status: Current every day smoker tobacco type: e-cigarettes EXAM Physical Exam Const Vital Signs: 09/06/24 20:22 09/06/24 20:26 09/06/24 21:30 Temperature 98.3 F 98.3 F 98.5 F Temperature Source Tympanic Oral Oral Pulse Rate 99 98 92 Respiratory Rate 18 18 18 Blood Pressure 166/104 H 166/104 H 163/106 H Blood Pressure Mean 124 124 125 Pulse Ox 97 99 98 Oxygen Delivery Method Room Air Room Air Room Air 09/06/24 22:00 09/06/24 23:00 Temperature 98.5 F 98.4 F Temperature Source Oral Oral Pulse Rate 94 98 Respiratory Rate 18 18 Blood Pressure 170/95 H 152/99 H Blood Pressure Mean 120 116 Pulse Ox 96 96 Oxygen Delivery Method Room Air Room Air Physical Exam Const Vital Signs: 09/06/24 20:22 09/06/24 20:26 09/06/24 21:30 Temperature 98.3 F 98.3 F 98.5 F Temperature Source Tympanic Oral Oral Pulse Rate 99 98 92 Respiratory Rate 18 18 18 Blood Pressure 166/104 H 166/104 H 163/106 H Blood Pressure Mean 124 124 125 Pulse Ox 97 99 98 Oxygen Delivery Method Room Air Room Air Room Air 09/06/24 22:00 09/06/24 23:00 Temperature 98.5 F 98.4 F Temperature Source Oral Oral Pulse Rate 94 98 Respiratory Rate 18 18 Blood Pressure 170/95 H 152/99 H Blood Pressure Mean 120 116 Pulse Ox 96 96 Oxygen Delivery Method Room Air Room Air MDM MDM MDM Narrative Medical decision making narrative: HISTORY OF PRESENT ILLNESS: 34-year-old female presents with abdominal pain nausea vomiting diarrhea. No she has had chronic diarrhea since 2018. She denies any vomiting to me. She notes abdominal pain that starts in the right upper abdomen and radiates to the left mid abdomen. No she had history of cholecystectomy. Denies fever. Denies hematemesis melena hematochezia. Denies any urinary complaints. No she is on her period at this time. Denies any vaginal discharge. In terms of syncope. She states she felt lightheaded on the toilet having a bowel movement but denies actually losing consciousness. Denies any chest pain, shortness of breath, palpitations prior to this event. Denies history of similar. Denies cocaine or methamphetamine abuse. The patient denies recent surgery in the last 4 weeks or immobilization in the last 3 days, denies previous diagnosis of DVT or PE, hemoptysis, unilateral leg swelling or malignancy with treatment the last 6 months or palliative. No estrogen use noted. REVIEW OF SYSTEMS: Pertinent positives: Abdominal pain, nausea, diarrhea, vaginal bleeding, lightheadedness, near- syncope Pertinent negatives: Vomiting PHYSICAL EXAM: Nursing triage notes reviewed, Vital signs reviewed Constitutional: please see mdm HENT: MMM Eyes: Pupils equal round and reactive to light, Extraocular muscles intact Neck: No stridor, no JVD, full neck ROM Lungs: Clear to auscultation, No wheezing or rales. No increased work of breathing, no conversational dyspnea, no accessory muscle use, no nasal flaring. No respiratory distress noted Heart: Regular rate and rhythm, No murmurs, No rubs and No gallops, 2+ distal pulses (radial, femoral, posterior tibial) in all extremities Abdomen: Soft, there is no tenderness, rigidity, rebound or guarding, no obvious peritoneal signs, no palpable pulsatile abdominal masses, no auscultated abdominal bruit : No CVAT Extremities: No edema Neuro: No new focal neurological deficits, cranial nerves II through XII intact, 5/5 strength in all present extremities. Intact sensation (more content not included)... Normal [facility] Epithelial cells.squamous LM Ql (Urine sed)Ordered By: Jane Raymundo on 09-06-2024 Epithelial cells.squamous LM.HPF (Urine sed) [#/Area] 5 /[HPF] 5-10 [facility] Erythrocyte distribution wid th ratioOrdered By: Jane Raymundo on 09-06-2024 Erythrocyte distribution width (RBC) [Ratio] 13.3 % 11.6-14.6 [facility] Erythrocyte distribution wid th standard deviationOrdered By: Jane Raymundo on 09-06-2024 Erythrocyte distribution width (RBC) [Entitic vol] 43.1 fL 35.1-43.9 [facility] Estimated glomerular filtrat ion rate (GFR) AmericanOrdered By: Jane Raymundo on 09-06-2024 Estimated GFR (MDRD) Amer 93 mL/min >60 [facility] Comment on above: GFR Calc Estimation of creatinine mike aranceOrdered By: Jane Raymundo on 09-06-2024 Estimated Creatinine Clearance Calc 106.16 ml/min [facility] Glomerular filtration rate ( GFR) estimationOrdered By: Jane Raymundo on 09-06-2024 Estimated GFR (MDRD) Non-Af Amer 77 mL/min >60 [facility] Comment on above: Non- GFR Calc Glucose Ql (U)Ordered By: Surinder manfred Raymundo on 09-06-2024 Urine Glucose (UA) Normal mg/dl Normal [facility] Glucose measurementOrdered B y: Jane Lopezrus on 09-06-2024 Glucose [Mass/Vol] 102 mg/dL 74-106 [place] Comment on above: Fasting Glucose resu lt from 100 to 125 mg/dL suggests IMPAIRED HOMEOSTASIS per A.D.A. criteria. Hematocrit Auto (Bld) [Volum e fraction]Ordered By: Jane Breanne on 09-06-2024 Hematocrit (Bld) [Volume fraction] 44.8 % 37-47 [facility] Hemoglobin measurementOrdere d By: Jane Breanne on 09-06-2024 Hemoglobin (Bld) [Mass/Vol] 15.2 g/dL High 12.0-15.0 [facility] Ketones Test strip Ql (U)Ord ered By: Jane Lopezrus on 09-06-2024 Ketones Ql (U) Negative Negative [facility] L501.4020on 09-06-2024 TROPONIN-I HS 8 pg/mL Normal 3.0-54.0 [facility] Comment on above: Order Comment: 'TROP ' Serial specimen #1, #2 or #3: 1 Result Comment: Plea Note: New Test Units and Gender Specific Reference Ranges. For more information see Policy Stat Procedure [place] High Sensitivity Troponin (TNIH) and attachments. Performed By: #### L 501.2450, L501.4020, L500.4050, L100.0500 ####[facility] [id number] [place], [place], [id number] Laboratory - Chemistry and C hemistry - challengeOrdered By: Jane Raymundo on 09-06-2024 AST [Catalytic activity/Vol] 27 U/L 15-37 [facility] Lipaseon 09-06-2024 Lipase [Catalytic activity/Vol] 30 U/L Normal 13-75 [facility] Comment on above: Order Comment: 'TROP ' Serial specimen #1, #2 or #3: 1 Result Comment: Plea se note: LIPASE revised reference range effective 22. New Lipase methodology. Expected to produce lower values than the previous assay method. NEW Reference Range: 13 - 75 U/L Performed By: #### L 501.2450, L501.4020, L500.4050, L100.0500 ####[facility] [id number] [place], [address] Lipase measurementOrdered By : Jane Raymundo on 09-06-2024 Lipase [Catalytic activity/Vol] 30 U/L 13-75 [facility] Comment on above: Please note:LIPASE r evised reference range effective 22. New Lipase methodology. Expected to produce lower values than the previous assay method. NEW Reference Range: 13 - 75 U/L MCV (mean corpuscular volume ) determinationOrdered By: Jane Raymundo on 09-06-2024 MCV (RBC) [Entitic vol] 88.4 fL 81-99 [facility] Mean corpuscular hemoglobin (MCH) determinationOrdered By: Jane Raymundo on 09-06-2024 MCH (RBC) [Entitic mass] 30.0 pg 27.0-32.0 [facility] Mean corpuscular hemoglobin concentration (MCHC) determinationOrdered By: Jane Raymundo on 09-06-2024 MCHC (RBC) [Mass/Vol] 33.9 g/dL 32-36 [facility] Mean platelet volume determi nationOrdered By: Jane Raymundo on 09-06-2024 Platelet mean volume (Bld) [Entitic vol] 8.9 fL 6.2-12.0 [facility] Microscopic analysis of urin e for red blood cells (RBC)Ordered By: Jane Raymundo on 09-06-2024 Urine RBC > 100 SEEN /hpf 0-5 [facility] Mucus LM Ql (Urine sed)Order ed By: Jane Raymundo on 09-06-2024 Mucus Ql (Urine sed) RARE /hpf [facility] Nitrite Test strip Ql (U)Ord ered By: Jane Raymundo on 09-06-2024 Nitrite Ql (U) Negative Negative [facility] Platelet countOrdered By: Surinder Raymundo on 09-06-2024 Platelets (Bld) [#/Vol] 335 10*3/uL 150-450 [facility] Potassium measurementOrdered By: Jane Raymundo on 09-06-2024 Potassium [Moles/Vol] 3.2 mmol/L Low 3.5-5.1 [facility] ,Urineon 09-06-2024 Beta HCG ( test) Ql (U) Negative Normal [facility] Comment on above: Order Comment: CLEAN CATCH Result Comment: Very dilute urine specimens, as indicated by a low specific gravity, may not contain member services representative levels of hCG. If is still suspected, a first morning urine specimen should be collected 48 hours later and tested. Performed By: #### L 400.7600, L400.0001 ####[facility] [id number] [place], [address] Protein Test strip Ql (U)Ord ered By: Jane Raymundo on 09-06-2024 Protein Ql (U) 100 mg/dl High Negative [facility] RBC Auto (Bld) [#/Vol]Ordere d By: Jane Raymundo on 09-06-2024 RBC (Bld) [#/Vol] 5.07 10*6/uL 4.2-5.4 [facility] Serum anion gap measurementO rdered By: Jane Raymundo on 09-06-2024 Anion gap [Moles/Vol] 10 mmol/L 5-15 [facility] Serum globulin measurementOr dered By: Jane Raymundo on 09-06-2024 Globulin (S) [Mass/Vol] 3.9 g/dL 2.2-4.2 [facility] Serum or plasma alanine mathew otransferase (ALT) measurementOrdered By: Jane Raymundo on 09-06-2024 ALT [Catalytic activity/Vol] 37 U/L 13-56 [facility] Serum or plasma albumin cortez urement (mass/volume)Ordered By: Jane Raymundo on 09-06-2024 Albumin [Mass/Vol] 4.0 g/dL 3.2-5.0 [place] Serum or plasma alkaline rupal sphatase measurementOrdered By: Jane Raymundo on 09-06-2024 ALP [Catalytic activity/Vol] 79 U/L 45-117 [facility] Serum or plasma calcium cortez urement (mass/volume)Ordered By: Jane Raymundo on 09-06-2024 Calcium [Mass/Vol] 9.4 mg/dL 8.5-10.1 [place] Serum or plasma creatinine m easurement (mass/volume)Ordered By: Jane Raymundo on 09-06-2024 Creatinine [Mass/Vol] 0.89 mg/dL 0.55-1.02 [facility] Comment on above: The validity of the calculated GFR & GFRAA in patients over 70 years has not been determined. Clinical correlation is essential. Serum or plasma urea nitroge n measurement (mass/volume)Ordered By: Jane Raymundo on 09-06-2024 Urea nitrogen [Mass/Vol] 13 mg/dL 7-18 [facility] Sodium levelOrdered By: Byron Raymundo on 09-06-2024 Sodium [Moles/Vol] 138 mmol/L 136-145 [facility] Total proteinOrdered By: Shankar Raymundo on 09-06-2024 Protein [Mass/Vol] 7.9 g/dL 6.4-8.2 [facility] Troponin IOrdered By: Jane Raymundo on 09-06-2024 Troponin I High Sensitivity 8 pg/mL 3.0-54.0 [facility] Comment on above: Please Note: New [place] t Units and Gender Specific Reference Ranges. For more information see Policy Stat Procedure [place] High Sensitivity Troponin (TNIH) and attachments. Urinalysis, Completeon 09-06 BACTERIA 3+ /hpf Normal None Seen [facility] Comment on above: Order Comment: CLEAN CATCH Performed By: #### L 400.7600, L400.0001 ####[facility] [id number] [place], [address] EPI,SQUAMOUS 5-10 SEEN Normal 5-10 [facility] [facility] Comment on above: Order Comment: CLEAN CATCH Performed By: #### L 400.7600, [id number] ####[facility] [address] [place], [address] Mucus Ql (Urine sed) RARE Normal [facility] Comment on above: Order Comment: CLEAN CATCH Performed By: #### L 400.7600, [id number] ####[facility] [address] [place], [address] WBC 25-50 SEEN Normal 0-5 [facility] Comment on above: Order Comment: CLEAN CATCH Performed By: #### L 400.7600, [id number] ####[facility] [address] [place], [address] RBC > 100 SEEN Normal 0-5 [facility] Comment on above: Order Comment: CLEAN CATCH Performed By: #### L 400.7600, [id number] ####[facility] [address] [place], [address] Urine blood detectionOrdered By: Jane Raymundo on 09-06-2024 Urine Occult Blood 250 /ul High Negative [place] Urine clarityOrdered By: Shankar Raymundo on 09-06-2024 Clarity (U) Cloudy Clear [facility] Urine color determinationOrd ered By: Jane Raymundo on 09-06-2024 Color (U) Yellow Yellow [facility] Urine cultureOrdered By: Faheem Grajeda on 09-06-2024 Bacteria identified Cx Nom (U) Positive Abnormal [facility] Urine leukocyte esterase det ection by dipstickOrdered By: Jane Raymundo on 09-06-2024 Leukocyte esterase Test strip Ql (U) 500 /ul High Negative [facility] Urine pHOrdered By: Jane somers on 09-06-2024 pH (U) 6.0 [pH] 5.0 - 8.0 [facility] Urine testOrdered By: Jane Raymundo on 09-06-2024 HCG ( test) Ql (U) Negative [facility] Comment on above: Very dilute urine sp ecimens, as indicated by a low specificgravity, may not contain member services representative levels of hCG. If is still suspected, a first morning urinespecimen should be collected 48 hours later and tested. Urine sediment bacteria coun t by microscopy (number/high power field)Ordered By: Jane Raymundo on 09-06-2024 Bacteria LM.HPF (Urine sed) [#/Area] 3 /[HPF] None Seen [facility] Urine specific gravity measu rementOrdered By: Jane Raymundo on 09-06-2024 Specific gravity (U) [Rel density] 1.025 1.002-1.030 [facility] Urobilinogen Ql (U)Ordered B y: Jane Raymundo on 09-06-2024 Urine Urobilinogen Normal mg/dl Normal [facility] White blood cell (WBC) count Ordered By: Jane Raymundo on 09-06-2024 WBC (Bld) [#/Vol] 19.0 10*3/uL High 4.4-11.0 [facility] White blood cell countOrdere d By: Jane Raymundo on 09-06-2024 Urine WBC 25-50 SEEN /hpf 0-5 [facility] CNPNon 06-23-2024 [facility] Telephone ([facility]) KENIA ORTIZ V ([id number]) 1990 F Date Time Provider Department 06/23/24 KARTHIKEYAN TORRES [facility] During your visit today, we recorded the following information about you: Karthikeyan Torres PA 06/23/2024 8:28 AM Signed Please let patient know urine culture did reveal UTI. She is on the appropriate antibiotic. Finish this medication and follow-up with PCP if symptoms persist Jeny Cooper LPN 06/23/2024 10:06 AM Signed Left message for patient to return call for results and recommendations.AUTUMN Zhong Alexandra, MA 06/25/2024 8:14 AM Signed Patient notified. Guilherme Moses MA Allergies As of Date: 06/23/2024 Noted Allergy Reaction SBPBERRY 01/02/2010 4 - Hives VACCINE ADJUVANT EMULSION AS03 01/02/2010 10 - Anaphylaxis Date Reviewed: 06/21/2024 Reviewed by: Damaso Palma APRN.ASSIGNMENT CLERK - Fully Assessed Reason for Visit: Results [95] Prescriptions as of 06/25/2024 - cephALEXin (KEFLEX) 500 mg capsule Take 1 capsule by mouth two times a day for 7 days. - acyclovir (ZOVIRAX) 400 mg tablet take 1 tablet by mouth twice a day - cholecalciferol, Vitamin D3, (VITAMIN D3) 1,250 mcg (50,000 unit) cap capsule Take 1 capsule by mouth one time a week. - gabapentin (NEURONTIN) 300 mg capsule Take 1 capsule by mouth daily at bedtime for 60 days. - gabapentin (NEURONTIN) 100 mg capsule Take 1 capsule by mouth twice daily for 60 days. - hydroCHLOROthiazide (HYDRODIURIL, ESIDRIX) 25 mg tablet take 1 tablet by mouth once daily - escitalopram oxalate (LEXAPRO) 20 mg tablet take 1 tablet by mouth once daily - buPROPion SR (ZYBAN SR; WELLBUTRIN SR) 150 mg 12 hr tablet take 1 tablet twice a day for SMOKING CESSATION - albuterol HFA (PROVENTIL HFA, VENTOLIN HFA) 90 mcg/actuation inhaler Inhale 2 Puffs as instructed every 6 hours as needed for wheezing/shortness of breath. - Miscellaneous Medical Supply Left thumb splint-disp 1 Right thumb splint--disp 1 use as needed to rest the thumbs Dx thumb strain from overuse - Blood Pressure Monitor kit Take blood pressure daily. Problem List As Of Date 06/23/2024 Noted Resolved Emergency Contraceptive Counseling [Z30.09] 01/02/2010 01/02/2010 Anxiety and depression [F41.9, F32.A] 02/06/2010 with care elsewhere, antepar*01/05/2013 01/06/2018 Nausea and vomiting in [O21.9] 01/05/2013 07/09/2014 History of abnormal Pap smear [Z87.898] 01/05/2013 01/06/2018 Family history of genetic disease [Z84.89] 01/05/2013 07/09/2014 Patient requested diagnostic testing [Z01.89] 01/05/2013 07/09/2014 Rubella non-immune status [Z78.9] 01/07/2013 07/09/2014 Susceptible to varicella (non-immune), currentl*01/07/2013 05/10/2016 Chlamydia infection [A74.9] 07/12/2014 05/10/2016 Rubella non-immune status, antepartum [O09.899,*07/12/2014 05/10/2016 Supervision of other high-risk [O09.8*07/12/2014 05/10/2016 History of suicidal ideation [Z86.59] 10/21/2014 Scabies infestation [B86] 11/15/2014 05/10/2016 Abdominal wall hernia [K43.9] 05/10/2016 Chronic diarrhea [K52.9] 05/10/2016 Recurrent major depressive disorder, in partial*05/10/2016 01/06/2018 Enterocolitis due to Clostridium difficile [A04*05/16/2016 History of depression [Z86.59] 06/10/2017 Custody issue [Z65.3] 06/10/2017 History of marijuana use [F12.91] 06/10/2017 History of herpes genitalis [Z86.19] 06/10/2017 Hx of maternal laceration, 3rd degree, currentl*06/10/2017 01/06/2018 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] 10/01/2017 Unstable lie of fetus [O32.0XX0] 10/22/2017 01/06/2018 Incisional hernia [K43.2] 02/11/2018 Hypertension, essential [I10] 04/15/2019 Near syncope [R55] 04/15/2019 Spells of decreased attentiveness [R68.89] 04/15/2019 Tobacco use disorder [F17.200] 03/22/2021 Chronic cough [R05.3] 03/22/2021 Carpal tunnel syndrome, bilateral [G56.03] 03/22/2021 Skin irritation [R23.8] 07/18/2021 Tinea corporis [B35.4] 07/18/2021 Obesity, Class II, BMI 35-39.9 [E66.812] 12/19/2021 Congenital medullary sponge kidney [Q61.5] 12/19/2021 Encounter Status:Closed by GUILHERME MOSES on 06/25/24 [facility] Bacteria Ur Culton 4 Bacteria identified Cx Nom (U) ORGANISM ID: 1 >=100,000 CFU/ml Citrobacter koseri ORGANISM ID: 1 (CITROBACTER KOSERI) -- ANTIBIOTIC INTERPRETATION PRAVEEN STATUS REFERENCE RANGE -- Ampicillin R >=32 F Susceptible <=8 , Intermediate >8 , Resistant >16 Cefazolin S <=4 F Susceptible 0-16 , Intermediate <0 or >16 , Resistant >16 For uncomplicated urinary tract infections, cefazolin results can be used to predict susceptibility or resistance to cephalexin. Ceftriaxone S <=1 F Susceptible <=1 , Intermediate >1 , Resistant >=4 Cefepime S <=1 F Susceptible <=2 , Susceptible-Dose Dependent >2 , Resistant >=16 Ertapenem S <=0.5 F Susceptible <=0.5 , Intermediate >.5 , Resistant >1 Meropenem S <=0.25 F Susceptible <=1 , Intermediate >1 , Resistant >2 Ampicillin/Sulbact S 4 F Susceptible <=8 , Intermediate >8 , Resistant >16 Piperacillin/Tazobac S <=4 F Susceptible <16 , Susceptible-Dose Dependent >=16 , Resistant >=32 Gentamicin S <=1 F Susceptible <=2 , Intermediate >2 , Resistant >=8 Tobramycin S <=1 F Susceptible <4 , Intermediate >=4 , Resistant >=8 Trimeth sulfameth S <=20 F Susceptible <=40 , Resistant >40 Ciprofloxacin S <=0.25 F Susceptible <0.5 , Intermediate >=.5 , Resistant >=1 Nitrofurantoin S 32 F Susceptible <=32 , Intermediate >32 , Resistant >64 [facility] Comment on above: Performed By: #### 6 30-4 #### [facility] CLIA [id number] [address] [place] [address] [place] CNOVon 06-21-2024 CNOV Office Visit (UCWSTR ) KENIA ORTIZ V ([id number]) 1990 F Date Time Provider Department 06/21/24 1:30 PM DAMASO PALMA [facility] During your visit today, we recorded the following information about you: Temperature Pulse Respiration Blood pressure 98.8 degrees 96/minute 16/minute 128/80 Weight 106.7 kg Damaso Palma APRN.ASSIGNMENT CLERK 06/21/2024 1:49 PM Signed Subjective HPI A nontoxic appearing female presents to urgent care with chief complaint of possible UTI. Duration of symptoms 2 days. Associated symptoms dysuria, frequency, and urgency. Patient has history of UTIs in past with similar signs and symptoms. Use of Azo good symptom management. Patient states pain is a 3/10. Patient denies any fevers, flank pain, abdominal pain, nausea, vomiting, vaginal discharge, chance of STDs, chance of , or urological abnormalities. Past medical history prescription medications allergies reviewed. .Patient presents with: Urinary Problem: burning and pressure with urination x 2 days, took azo and started period today PAST MEDICAL HISTORY Diagnosis Date Abnormal Pap smear of cervix 2012 [place] Anemia Anxiety Carpal tunnel syndrome, bilateral 03/22/2021 Chlamydia infection 07/12/2014 Congenital medullary sponge kidney 12/19/2021 Depression Enterocolitis due to Clostridium difficile 05/16/2016 Herpes simplex virus (HSV) infection History of pre-eclampsia in prior , currently Hypertension during Other specified disorder of gallbladder depression PAST SURGICAL HISTORY Procedure Laterality Date COLPOSCOPY CERVIX UPPER/ADJACENT VAGINA Colposcopy LAPROSCOPIC REPAIR UMBILICAL HERNIA 09/20/2016 LAPS SURG CHOLECYSTECTOMY W/CHOLANGIOGRAPHY 07/06/08 LX REPAIR RECURRENT VENTRAL HERNIA 02/18/2018 REPAIR FIRST ABDOMINAL WALL HERNIA 01/06/2019 Hernia repair, incisional SALPINGECTOMY Bilateral 04/17/2018 ALLERGIES Raspberry and Vaccine Adjuvant Emulsion As03 MEDICATIONS acyclovir (ZOVIRAX) 400 mg tablet take 1 tablet by mouth twice a day albuterol HFA (PROVENTIL HFA, VENTOLIN HFA) 90 mcg/actuation inhaler Inhale 2 Puffs as instructed every 6 hours as needed for wheezing/shortness of breath. cholecalciferol, Vitamin D3, (VITAMIN D3) 1,250 mcg (50,000 unit) cap capsule Take 1 capsule by mouth one time a week. (Patient not taking: Reported on 06/21/2024) gabapentin (NEURONTIN) 300 mg capsule Take 1 capsule by mouth daily at bedtime for 60 days. (Patient not taking: Reported on 06/21/2024) gabapentin (NEURONTIN) 100 mg capsule Take 1 capsule by mouth twice daily for 60 days. (Patient not taking: Reported on 06/21/2024) hydroCHLOROthiazide (HYDRODIURIL, ESIDRIX) 25 mg tablet take 1 tablet by mouth once daily escitalopram oxalate (LEXAPRO) 20 mg tablet take 1 tablet by mouth once daily (Patient not taking: Reported on 06/21/2024) buPROPion SR (ZYBAN SR; WELLBUTRIN SR) 150 mg 12 hr tablet take 1 tablet twice a day for SMOKING CESSATION (Patient not taking: Reported on 03/21/2022 ) Miscellaneous Medical Supply Left thumb splint-disp 1 Right thumb splint--disp 1 use as needed to rest the thumbs Dx thumb strain from overuse (Patient not taking: Reported on 03/22/2021 ) Blood Pressure Monitor kit Take blood pressure daily. FAMILY HISTORY Problem Relation Age of Onset Arthritis Mother Osteoarthritis Cancer Father Hypertension Maternal Grandmother Stroke Maternal Grandmother Prostate Cancer Maternal Grandfather Arthritis Maternal Grandfather Breast Cancer Paternal Grandmother Heart Paternal Grandmother Hypertension Paternal Grandmother Social History Tobacco Use Smoking status: Every Day Current packs/day: 2.00 Average packs/day: 2.0 packs/day for 2.0 years (4.0 ttl pk-yrs) Types: Cigarettes Smokeless tobacco: Never Substance Use Topics Alcohol use: No Drug use: Yes Types: Marijuana Comment: Has used marijuana in past BP 128/80 Pulse 96 Temp 37.1 ?C (98.8 ?F) Resp 16 Wt 106.7 kg (235 lb 3.7 oz) LMP 03/15/2022 (Exact Date) SpO2 98% BMI 39.39 kg/m? Review of Systems Constitutional: Negative for chills, fever and malaise/fatigue. Cardiovascular: Negative for chest pain. Gastrointestinal: Negative for abdominal pain, constipation, diarrhea, nausea and vomiting. Genitourinary: Positive for dysuria, frequency and urgency. Negative for flank pain and hematuria. Musculoskeletal: Negative for myalgias. Objective Physical Exam Vitals and nursing note reviewed. Constitutional: General: She is not in acute distress. Appearance: She is not toxic-appearing or diaphoretic. HENT: Head: Normocephalic. Jaw: No trismus. Right Ear: Hearing normal. No decreased hearing noted. No drainage, swelling or tenderness. Tympanic membrane is not perforated, erythematous or bulging. Left Ear: Hearing normal. No d (more content not included)... [facility] UA DIP, URINE (POC)on 2023 BILIRUBIN UA (POCT) Negative Negative [facility] CLARITY UA (POCT) Cloudy [facility] COLOR UA (POCT) Dark yellow [facility] GLUCOSE UA (POCT) Negative Negative mg/dL [facility] Hemoglobin Ql (U) Large Abnormal Negative [facility] Interpretation and review of laboratory results Abnormal [facility] KETONE UA (POCT) Negative Negative mg/dL [facility] LEUKOCYTES UA (POCT) Small Abnormal Negative [facility] NITRITE UA (POCT) Positive Abnormal Negative [facility] PH UA (POCT) 6.0 4.5 - 8.0 [facility] Protein Ql (U) 30 mg/dL Abnormal Negative [facility] SPECIFIC GRAVITY UA (POCT) 1.020 1.005 - 1.030 [facility] UROBILINOGEN UA (POCT) 0.2 Krystal l E.U./dL [facility] Location:[facility], [address] [place] [address], [place], [place], [address] [place] [address] POINT OF CARE [facility] 04-02-2024 36 Spoke to patient, no questions. Normal [facility] 04-01-2024 36 ----- Message from Devin Bernal MD sent at 03/31/2024 4:49 PM EDT ----- Normal Pap smear, negative for high risk HPV virus. Left a message to return call. Normal [facility] 03-30-2024 36 Message released to patient as written. Vaginal pathogens swab- negative LDL cholesterol elevated 138. Recommend strict low fat, low cholesterol diet- recheck fasting lipids in 3 months Patient's further questions if applicable: none Were all questions from office addressed or relayed to the patient from encounter: Yes Normal [facility] 03-26-2024 36 Lab order given to Lashonda to add on. Normal [facility] 36 ----- Message from BREA Bee CNP sent at 03/26/2024 6:23 AM EDT ----- CMP- normal electrolytes, normal kidney and liver functioning Lipid panel-cholesterol levels are very high. Total cholesterol 346, HDL low 42, triglycerides 754. Recommend adding a direct LDL count to further determine treatment plan CBC-slight elevation in wbc-non concerning, otherwise normal cell counts. PAP smear and HPV pending Left a message to return call. Normal [facility] CBC panel Auto (Bld)on 03-26 Erythrocyte distribution width (RBC) [Ratio] 13.0 % 11.0 - 15.0 % [facility] Hematocrit (Bld) [Volume fraction] 45.1 % High 35.0 - 45.0 % [facility] Hemoglobin (Bld) [Mass/Vol] 15.7 g/dL High 11.7 - 15.5 g/dL [facility] MCH (RBC) [Entitic mass] 31.7 pg 27. 0 - 33.0 pg [facility] MCHC (RBC) [Mass/Vol] 34.8 g/dL 32.0 - 36.0 g/dL [facility] MCV (RBC) [Entitic vol] 91.1 fL 80.0 - 100.0 fL [facility] Platelet mean volume (Bld) [Entitic vol] 10.1 fL 7.5 - 12.5 fL [facility] Platelets (Bld) [#/Vol] 348 10*3/uL [facility] RBC (Bld) [#/Vol] 4.95 10*6/uL [facility] WBC (Bld) [#/Vol] 11.1 10*3/uL High [facility] Comprehensive metabolic 1998 panelon 03-26-2024 Albumin [Mass/Vol] 4.8 g/dL 3.6 - 5.1 g/dL [facility] Albumin/Globulin [Mass ratio] 1.5 {ratio} [facility] ALP [Catalytic activity/Vol] 51 U/L 31 - 125 U/L [facility] ALT [Catalytic activity/Vol] 19 U/L 6 - 29 U/L [facility] AST [Catalytic activity/Vol] 20 U/L 10 - 30 U/L [facility] Bilirubin [Mass/Vol] 0.6 mg/dL 0.2 - 1 .2 mg/dL [facility] Calcium [Mass/Vol] 9.9 mg/dL 8.6 - 10. 2 mg/dL [facility] Chloride [Moles/Vol] 102 mmol/L 98 - 11 0 mmol/L [facility] CO2 [Moles/Vol] 23 mmol/L 20 - 32 mmol/L [facility] Creatinine [Mass/Vol] 0.88 mg/dL 0.50 - 0.97 mg/dL [facility] GFR/1.73 sq M.predicted among non-blacks MDRD (S/P/Bld) [Vol rate/Area] 88 mL/min/{1.73_m2} > OR = 60 mL/min/1.73 m2 [facility] Globulin (S) [Mass/Vol] 3.1 g/dL [facility] Glucose [Mass/Vol] 120 mg/dL 65 - 139 mg/dL [facility] Comment on above: Non-fasting reference interval For someone without known diabetes, a glucose value between 100 and 125 mg/dL is consistent with prediabetes and should be confirmed with a follow-up test. Potassium [Moles/Vol] 4.1 mmol/L 3.5 - 5.3 mmol/L [facility] Protein [Mass/Vol] 7.9 g/dL 6.1 - 8.1 g/dL [facility] Sodium [Moles/Vol] 136 mmol/L 135 - 146 mmol/L [facility] Urea nitrogen [Mass/Vol] 16 mg/dL 7 - 25 mg/dL [facility] Urea nitrogen/Creatinine [Mass ratio] SEE NOTE: [facility] Comment on above: Not Reported: BUN an d Creatinine are within reference range. Lipid 1996 panelon 4 Cholesterol [Mass/Vol] 346 mg/dL High [facility] - 200 mg/dL [facility] Cholesterol in HDL [Mass/Vol] 42 mg/dL Low > OR = 50 [facility] Cholesterol in LDL [Mass/Vol] [facility] Comment on above: LDL cholesterol not calculated. Triglyceride levels greater than 400 mg/dL invalidate calculated LDL results. Reference range: <100 Desirable range <100 mg/dL for primary prevention; <70 mg/dL for patients with CHD or diabetic patients with > or = 2 CHD risk factors. LDL-C is now calculated using the Enrike-Macias calculation, which is a validated novel method providing better accuracy than the Friedewald equation in the estimation of LDL-C. Enrike SS et al. CHYNA. 2013;310(19): 5229-7320 (http://education.Movetis/faq/FNV999) Cholesterol non HDL [Mass/Vol] 304 mg/dL High [facility] Comment on above: Non-HDL level > or = 220 is very high and may indicate genetic familial hypercholesterolemia (FH). Clinical assessment and measurement of blood lipid levels should be considered for all first-degree relatives of patients with an FH diagnosis. For patients with diabetes plus 1 major ASCVD risk factor, treating to a non-HDL-C goal of <100 mg/dL (LDL-C of <70 mg/dL) is considered a therapeutic option. Cholesterol.total/Choles terol in HDL [Mass ratio] 8.2 {ratio} High [facility] Triglyceride [Mass/Vol] 754 mg/dL High [facility] - 150 mg/dL [facility] Comment on above: If a non-fasting specimen was collected, consider repeat triglyceride testing on a fasting specimen if clinically indicated. Bulmaro et al. J. of Clin. Lipidol. 2015;9:129-169. There is increased risk of pancreatitis when the triglyceride concentration is very high (> or = 500 mg/dL, especially if > or = 1000 mg/dL). Bulmaro et al. J. of Clin. Lipidol. 2015;9:129-169. No Panel Informationon 03-26 Interpretation and review of laboratory results Abnormal [facility] Sureswab(R) Advanced Vaginit is Plus, TMA ([facility])on 03-26-2024 C. trachomatis rRNA NIDA+probe Ql (Unsp spec) [facility] Comment on above: TEST NOT PERFORMED After several attempts, we cannot obtain a valid result. Please submit a new sample for testing. Edith sp rRNA Probe Ql (Vag fld) [facility] Comment on above: TEST NOT PERFORMED After several attempts, we cannot obtain a valid result. Please submit a new sample for testing. Lactobacillus crispatus+gasseri+castano ii + Gardnerella vaginalis + Atopobium vaginae rRNA NIDA+probe Ql (Vag fld) [facility] Comment on above: TEST NOT PERFORMED After several attempts, we cannot obtain a valid result. Please submit a new sample for testing. T. vaginalis rRNA NIDA+probe Ql (Unsp spec) [facility] Comment on above: TEST NOT PERFORMED After several attempts, we cannot obtain a valid result. Please submit a new sample for testing. Progress Noteon 2024 Progress Note Continue suppressive therapy. Normal [facility] Progress Note Controlled. Blood pressure 106/73. Continue benazepril 40 mg daily and hydrochlorothiazide 25 mg daily Normal [facility] Progress Note Patient was identifi ed by name and Date of . Health Maintenance Addressed with Patient at Visit: Pap-pended Phq-completed Lipid-pended Normal [facility] Progress Note I did not Normal [facility] Progress Note 2024 Kenia Ortiz (: 1990) is a 34 y.o. female , Established patient, here for evaluation of the following chief complaint(s): Gynecologic Exam and Health Maintenance (Pap-pended/Phq-comple leticia/Lipid-pended) ASSESSMENT/PLAN: 1. Well woman exam with routine gynecological exam 2. Screening for cervical cancer - Pap Smear 3. Screening for deficiency anemia - CBC 4. Screening for diabetes mellitus - Comprehensive metabolic panel 5. Screening for cholesterol level - Lipid panel 6. Herpes simplex virus (HSV) infection Assessment & Plan: Continue suppressive therapy. Orders: - acyclovir (Zovirax) 400 MG tablet; Take 1 tablet (400 mg) by mouth daily., Starting Sat2024, Normal 7. Screening for STD (sexually transmitted disease) - Sureswab(R) Advanced Vaginitis Plus, TMA ([facility]) 8. Primary hypertension Assessment & Plan: Controlled. Blood pressure 106/73. Continue benazepril 40 mg daily and hydrochlorothiazide 25 mg daily Follow up in about 3 months (around 06/25/2024) for 3 month medcheck. SUBJECTIVE/OBJECTIVE: HPI - Kenia Ortiz (: 1990) is a 34 y.o. female , Established patient, here for the evaluation of the following chief complaint(s): Gynecologic Exam and Health Maintenance (Pap-pended/Phq-comple leticia/Lipid-pended) Presents for gynecological exam. Denies any acute concerns or complaints. Periods are regular lasting about 5 days. Not currently sexually active. Would like refill of the acyclovir for herpes suppressive therapy. Denies any recent flares. Anxiety depression- seeing counseling monthly, will see psychiatrist- 03/27/2024 at 130 pm the counseling [facility]. States it has been stressful since her mom got temporary custody of her daughter, Shantal. She is hoping to get her daughter back. Dlipswqlrcxa-feek-rcro rolled currently on benazepril 40 mg, hydrochlorothiazide 25 mg. Prior to Admission medications Medication Sig Start Date End Date Taking? Authorizing Provider acyclovir (Zovirax) 400 MG tablet Take 400 mg by mouth. 03/09/21 Yes Historical Provider, benazepril (Lotensin) 40 MG tablet Take 1 tablet (40 mg) by mouth daily. 02/13/24 02/12/25 Yes Leticia RahulenthalBREA - ANYA hydroCHLOROthiazide (HYDRODiuril) 25 MG tablet Take 1 tablet (25 mg) by mouth daily. 02/13/24 04/13/24 Yes Leticia Rahulenthal DEVELOPMENT ADVISOR - ANYA mirtazapine (Remeron) 15 MG tablet Take 15 mg by mouth Nightly. 12/09/23 Yes Historical Provider, albuterol 108 (90 Base) MCG/ACT inhaler Inhale 2 puffs every 6 hours as needed. 03/22/21 03/25/24 Historical Provider, Review of Systems Constitutional: Negative. HENT: Negative. Respiratory: Negative. Cardiovascular: Negative. Gastrointestinal: Negative. Genitourinary: Negative for difficulty urinating, menstrual problem (regular- LMP- 02/24/2024-), vaginal discharge and vaginal pain. Musculoskeletal: Negative. Skin: Negative. Neurological: Negative. Psychiatric/Behavioral : Positive for agitation, decreased concentration, dysphoric mood and sleep disturbance. Negative for self-injury and suicidal ideas. The patient is not nervous/anxious. Vitals: 03/25/24 1404 BP: 106/73 Pulse: 100 Resp: 18 Temp: 37 ?C (98.6 ?F) TempSrc: Infrared SpO2: 95% Weight: 237 lb 12.8 oz (108 kg) Physical Exam Constitutional: General: She is not in acute distress. Appearance: Normal appearance. She is not ill-appearing. HENT: Head: Normocephalic and atraumatic. Right Ear: Tympanic membrane normal. Left Ear: Tympanic membrane normal. Nose: Nose normal. Mouth/Throat: Mouth: Mucous membranes are moist. Pharynx: Oropharynx is clear. Uvula midline. No pharyngeal swelling, oropharyngeal exudate or posterior oropharyngeal erythema. Eyes: Conjunctiva/sclera: Conjunctivae normal. Cardiovascular: Rate and Rhythm: Normal rate and regular rhythm. Pulses: Normal pulses. Heart sounds: Normal heart sounds. Pulmonary: Effort: Pulmonary effort is normal. Breath sounds: Normal breath sounds. Chest: Breasts: Salomón Score is 5. Breasts are symmetrical. Right: Normal. No swelling, inverted nipple, mass, nipple discharge, skin change or tenderness. Left: Normal. No swelling, inverted nipple, mass, nipple discharge, skin change or tenderness. Abdominal: General: Bowel sounds are normal. There is no distension. Palpations: Abdomen is soft. There is no mass. Tenderness: There is no abdominal tenderness. There is no right CVA tenderness, left CVA tenderness or guarding. Hernia: A hernia is present. Hernia is present in the umbilical area. Genitourinary: Labia: Right: No rash or tenderness. Left: No rash or tenderness. Urethra: No prolapse, urethral pain, urethral swelling or urethral lesion. Vagina: Normal. Cervix: No cervical motion tenderness. Uterus: Normal. Adnexa: Right adnexa normal and left adnexa normal. Right: No mass, tenderness or fullness. Left: No mass, t (more content not included)... [facility] 36on 03-16-2024 36 Noted. Agree with disposition. [facility] 3603-13-2024 36 S: Patient spoke ethel connell [facility] nurse regarding rectal bleeding B: Onset of symptoms/concern started a couple days ago A: Patient states she is having dark red stool that started a couple days ago. Today has gone 4-5 times and all times have been bloody yesterday only went twice. Patient states she feels a little lightheaded and odd. Has felt nauseated all day. Denies fever or vomiting. R: Patient advised to go to the ER and states she will go to [facility] as that is closest to her. Patient understands care advice. No further needs at this time. Patient instructed to call back with new or worsening symptoms. Reason for Disposition Bloody, black, or tarry bowel movements (Exception: Chronic-unchanged black-celaya bowel movements and is taking iron pills or Pepto-Bismol.) Protocols used: Rectal [id number]-[id number]-DU [facility] 36on 03-09-2024 36 Left a message to return call. Kenia was scheduled to see Nicol today at 10:40am but missed the appointment, please reschedule. [facility] Office Visiton 02-13-2024 Follow-up visit [id number] Kristine Ortiz 1990 F Date Provider Department Center 02/13/2024 [id number] DSOUZA [facility] Family History Problem Relation Age of Onset No Known Problems Mother Cancer Father Comments: unsure of type No Known Problems Sister No Known Problems Sister No Known Problems Brother No Known Problems Brother No Known Problems Brother Family Status - Relation Status Age at Mother Alive Father Alive Sister Alive Sister Alive Brother Alive Brother Alive Brother Alive Maternal Grandmother Alive Maternal Grandfather Alive Paternal Grandmother Paternal Grandfather Level of Service:78236 UT OFFICE/OUTPATIENT ESTABLISHED [facility] 10 MIN Reason for Visit and Comments: Follow-up [422923] - Blood pressure Normal [facility] Progress Noteon 02-13-2024 Progress Note Controlled. Home blo od pressure readings have been very good. Continue benazepril 40 mg daily and hydrochlorothiazide 25 mg daily, will plan on checking CMP in 1 month at annual physical Normal [facility] Progress Note Patient verified by last name and . Normal [facility] Progress Note 02/13/2024 Kenia Ortiz (: 1990) is a 33 y.o. female , Established patient, here for evaluation of the following chief complaint(s): Follow-up (Blood pressure ) ASSESSMENT/PLAN: 1. Primary hypertension Assessment & Plan: Controlled. Home blood pressure readings have been very good. Continue benazepril 40 mg daily and hydrochlorothiazide 25 mg daily, will plan on checking CMP in 1 month at annual physical Orders: - benazepril (Lotensin) 40 MG tablet; Take 1 tablet (40 mg) by mouth daily., Starting Leida 02/13/2024, Until Sat02/12/2025, Normal - hydroCHLOROthiazide (HYDRODiuril) 25 MG tablet; Take 1 tablet (25 mg) by mouth daily., Starting Leida 02/13/2024, Until Sat04/13/2024, Normal Follow up in about 1 month (around 03/15/2024). SUBJECTIVE/OBJECTIVE: HPI - Kenia Ortiz (: 1990) is a 33 y.o. female , Established patient, here for the evaluation of the following chief complaint(s): Follow-up (Blood pressure ) - doing ok- seeing psych next in March. Once [facility]ont counselor in [facility]. Hypertension- taking lotensin 40 mg and hydrochlorothiazide 25 mg daily without issues home bp good, range 112/70-132/83, did have one elevated at 127/92 (states that she had just taken her medication prior) Prior to Admission medications Medication Sig Start Date End Date Taking? Authorizing Provider acyclovir (Zovirax) 400 MG tablet Take 400 mg by mouth. 03/09/21 Yes Historical Provider, albuterol 108 (90 Base) MCG/ACT inhaler Inhale 2 puffs every 6 hours as needed. 03/22/21 Yes Historical Provider, benazepril (Lotensin) 40 MG tablet Take 1 tablet (40 mg) by mouth daily. 01/15/24 01/14/25 Yes BREA Bee CNP hydroCHLOROthiazide (HYDRODiuril) 25 MG tablet Take 1 tablet (25 mg) by mouth daily. 02/06/24 03/07/24 Yes BREA Bee CNP mirtazapine (Remeron) 15 MG tablet Take 15 mg by mouth Nightly. 12/09/23 Yes Historical Provider, MV-Min-Fe Fum-FA-DHA ( 1 PO) Take 200 mg by mouth in the morning. 05/14/17 Historical Provider, Review of Systems Constitutional: Negative for activity change, chills, fatigue and fever. Respiratory: Negative. Cardiovascular: Negative. Genitourinary: Negative. Neurological: Negative. Vitals: 02/13/24 0948 02/13/24 1020 BP: (!) 140/92 130/87 Pulse: 98 89 SpO2: 98% Weight: 237 lb (108 kg) Height: 5' 5 (1.651 m) Physical Exam Constitutional: General: She is not in acute distress. Appearance: Normal appearance. She is obese. She is not ill-appearing. HENT: Head: Normocephalic and atraumatic. Cardiovascular: Rate and Rhythm: Normal rate and regular rhythm. Pulses: Normal pulses. Heart sounds: Normal heart sounds. Pulmonary: Effort: Pulmonary effort is normal. Breath sounds: Normal breath sounds. Neurological: Mental Status: She is alert and oriented to person, place, and time. An electronic signature was used to authenticate this note. BREA Meyer CNP 02/13/2024 12:17 PM Normal [facility] Office Visiton 02-06-2024 Follow-up visit [id number] Kristine Ortiz 1990 F Date Provider Department Center 02/06/2024 [id number] DSOUZA [facility] Family History Problem Relation Age of Onset No Known Problems Mother Cancer Father Comments: unsure of type No Known Problems Sister No Known Problems Sister No Known Problems Brother No Known Problems Brother No Known Problems Brother Family Status - Relation Status Age at Mother Alive Father Alive Sister Alive Sister Alive Brother Alive Brother Alive Brother Alive Maternal Grandmother Alive Maternal Grandfather Alive Paternal Grandmother Paternal Grandfather Level of Service:54204 UT OFFICE/OUTPATIENT ESTABLISHED LOW MDM 20 MIN Reason for Visit and Comments: Hypertension [173229] - Normal [facility] Progress Noteon 02-06-2024 Progress Note Uncontrolled, blood pressure 136/99. Continue benazepril 40 mg daily, and hydrochlorothiazide 25 mg daily and follow-up in 1 week Normal [facility] Progress Note Patient was identifi ed by name and Date of . Normal [facility] Progress Note 02/06/2024 Kenia Ortiz (: 1990) is a 33 y.o. female , Established patient, here for evaluation of the following chief complaint(s): Hypertension (/) ASSESSMENT/PLAN: 1. Primary hypertension Assessment & Plan: Uncontrolled, blood pressure 136/99. Continue benazepril 40 mg daily, and hydrochlorothiazide 25 mg daily and follow-up in 1 week Orders: - hydroCHLOROthiazide (HYDRODiuril) 25 MG tablet; Take 1 tablet (25 mg) by mouth daily., Starting Leida 02/06/2024, Until 03/07/2024, Normal Follow up in about 1 week (around 02/13/2024) for Recheck, Blood pressure check with provider. SUBJECTIVE/OBJECTIVE: HPI - Kenia Ortiz (: 1990) is a 33 y.o. female , Established patient, here for the evaluation of the following chief complaint(s): Hypertension (/) Patient brings her home blood pressure readings today with her they are also elevated ranging in 126/91 to 135/102. Reports taking Benzazepril 40 mg daily first thing in the morning. Denies any adverse effects of the medication. Denies any chest pain shortness of breath or blurred vision Prior to Admission medications Medication Sig Start Date End Date Taking? Authorizing Provider acyclovir (Zovirax) 400 MG tablet Take 400 mg by mouth. 03/09/21 Yes Historical Provider, albuterol 108 (90 Base) MCG/ACT inhaler Inhale 2 puffs every 6 hours as needed. 03/22/21 Yes Historical Provider, benazepril (Lotensin) 40 MG tablet Take 1 tablet (40 mg) by mouth daily. 01/15/24 01/14/25 Yes BREA Bee CNP mirtazapine (Remeron) 15 MG tablet Take 15 mg by mouth Nightly. 12/09/23 Yes Historical Provider, MV-Min-Fe Fum-FA-DHA ( 1 PO) Take 200 mg by mouth in the morning. 05/14/17 Yes Historical Provider, Review of Systems Constitutional: Negative for activity change, chills, fatigue and fever. Respiratory: Negative. Cardiovascular: Negative. Genitourinary: Negative. Neurological: Negative. Vitals: 02/06/24 0908 02/06/24 0921 BP: (!) 134/91 (!) 136/99 Pulse: 101 99 Resp: 20 Temp: 37 ?C (98.6 ?F) TempSrc: Infrared SpO2: 97% Weight: 241 lb (109 kg) Physical Exam Constitutional: General: She is not in acute distress. Appearance: Normal appearance. She is obese. She is not ill-appearing. HENT: Head: Normocephalic and atraumatic. Cardiovascular: Rate and Rhythm: Normal rate and regular rhythm. Pulses: Normal pulses. Heart sounds: Normal heart sounds. Pulmonary: Effort: Pulmonary effort is normal. Breath sounds: Normal breath sounds. Neurological: Mental Status: She is alert and oriented to person, place, and time. An electronic signature was used to authenticate this note. BREA Meyer CNP 02/06/2024 12:50 PM Normal [facility] Office Visiton 01-28-2024 Follow-up visit [id number] Kristine Ortiz 1990 F Date Provider Department Center 01/28/2024 [id number] DSOUZA [facility] Family History Problem Relation Age of Onset No Known Problems Mother Cancer Father Comments: unsure of type No Known Problems Sister No Known Problems Sister No Known Problems Brother No Known Problems Brother No Known Problems Brother Family Status - Relation Status Age at Mother Alive Father Alive Sister Alive Sister Alive Brother Alive Brother Alive Brother Alive Maternal Grandmother Alive Maternal Grandfather Alive Paternal Grandmother Paternal Grandfather Level of Service:23522 UT OFFICE/OUTPATIENT ESTABLISHED LOW MDM 20 MIN Reason for Visit and Comments: Hypertension [[id number]] Normal [facility] PATINSon 01-28-2024 PATINS Make sure to take yo ur blood pressure medication every day. [facility] Progress Noteon 01-28-2024 Progress Note Uncontrolled, did no t take her medication today. Patient to take benazepril 40 mg daily and follow-up next week for blood pressure check. Normal [facility] Progress Note Patient was identifi ed by name and Date of . Normal [facility] Progress Note 01/28/2024 Kenia Otriz (: 1990) is a 33 y.o. female , Established patient, here for evaluation of the following chief complaint(s): Hypertension ASSESSMENT/PLAN: 1. Primary hypertension Assessment & Plan: Uncontrolled, did not take her medication today. Patient to take benazepril 40 mg daily and follow-up next week for blood pressure check. Follow up in about 1 week (around 02/04/2024). SUBJECTIVE/OBJECTIVE: HPI Karyn Ortiz (: 1990) is a 33 y.o. female , Established patient, here for the evaluation of the following chief complaint(s): Hypertension Home blood pressure readings have been good 134/81, 123/89 and 130/89. Does state she forgot to take it today for some reason. No chest pain or shortness of breath. Does report getting some headaches. Reports doing ok at home and living with some friends. Prior to Admission medications Medication Sig Start Date End Date Taking? Authorizing Provider acyclovir (Zovirax) 400 MG tablet Take 400 mg by mouth. 03/09/21 Yes Historical Provider, albuterol 108 (90 Base) MCG/ACT inhaler Inhale 2 puffs every 6 hours as needed. 03/22/21 Yes Historical Provider, benazepril (Lotensin) 40 MG tablet Take 1 tablet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 Never Vaping Use Vaping Use: Never used Substance and Sexual Activity Alcohol use: Not Currently Drug use: Yes Types: Marijuana Comment: vape and smoke. 2-3 times a week Sexual activity: Yes Social History Narrative Engaged to Jeramie, has 2 dtrs and one son, SMOKER. Unemployed, of note does not have custody of her 2 oldest kids, did not divulge information. Presently her youngest daughter lives with her and her boyfriend. Social Determinants of Health Transportation Needs: No Transportation Needs (03/14/2023) PRAPARE - Transportation Lack of Transportation (Medical): No Lack of Transportation (Non-Medical): No Intimate Partner Violence: Not At Risk (03/15/2023) Humiliation, Afraid, Rape, and Kick questionnaire Fear of Current or Ex-Partner: No Emotionally Abused: No Physically Abused: No Sexually Abused: No Housing Stability: High Risk (03/14/2023) Housing Stability Vital Sign Unable to Pay for Housing in the Last Year: Yes Number of Places Lived in the Last Year: 1 Unstable Housing in the Last Year: No SCREENINGS PHYSICAL EXAM ED Triage Vitals [08/30/23 0807] Temp Heart Rate Resp BP 37 ?C (98.6 ?F) 82 18 (!) 157/113 SpO2 Temp Source Heart Rate Source Patient Position 99 % Oral Monitor Sitting BP Location FiO2 (%) Lef (more content not included)... Normal [facility] Laboratory - Chemistry and C hemistry - challengeon 08-30-2023 Prolactin [Mass/Vol] 16.2 ng/mL 3.0 - 3 5.0 ng/mL [employer] No Panel Informationon 08-30 Interpretation and review of laboratory results Normal [facility] Values below 35 ng/m L may be of doubtful significance. Recommend send-out testing to rule out macroprolactin to confirm the result. [facility] PROLACTINon 08-30-2023 PROLACTIN 16.2 ng/mL Normal 3.0-35.0 [facility] Comment on above: Result Comment: WALTER R COMMENTS: Values below 35 ng/mL may be of doubtful significance. Recommend send-out testing to rule out macroprolactin to confirm the result. Performed By: #### L [id number] #### Medical Administrative Assistant: ALBERTO PRICE ([id number]) [facility] ([facility]) [address] Office Visiton 07-09-2023 Follow-up visit [id number] LorisoniaKristine yvan 1990 F Date Provider Department Center 07/09/2023 [id number] DSOUZA [facility] Family History Problem Relation Age of Onset No Known Problems Mother Cancer Father Comments: unsure of type No Known Problems Sister No Known Problems Sister No Known Problems Brother No Known Problems Brother No Known Problems Brother Family Status - Relation Status Age at Mother Alive Father Alive Sister Alive Sister Alive Brother Alive Brother Alive Brother Alive Maternal Grandmother Alive Maternal Grandfather Alive Paternal Grandmother Paternal Grandfather Level of Service:08022 UT OFFICE/OUTPATIENT ESTABLISHED MOD MDM 30-39 MIN Reason for Visit and Comments: Follow-up [761389] Hypertension [125588] Depression [32] - Flu Vaccine [189] - Patient agreeable for influenza vaccine-but had reaction when younger-discuss vaccine with provider-does not recall last time she had flu vaccine Normal [facility] Progress Noteon 07-09-2023 Progress Note Poorly controlled. Denies any adverse effects of the medication is only been 1 week since starting. Recommend continuing fluoxetine 20 mg daily and establishing with a counselor. Follow-up in approximately 4 weeks sooner for worsening or failure for symptoms to improve Normal [facility] Progress Note Improved. Continue benazepril 10 mg and follow-up as directed Normal [facility] Progress Note Patient was identifi ed by name and Date of . Patient agreeable for influenza vaccine-but had reaction when younger-discuss vaccine with provider-does not recall last time she had flu vaccine Patient was identified by name and Date Of . After obtaining informed consent, Immunization(s) were ordered by provider. The patient and or Family/Guardian was instructed on the benefits and risks related to the vaccine or toxoid. Information given to the patient and or Family/Guardian with signs and symptoms of adverse effects and when to seek medical attention. Site was cleansed with an alcohol swab, immunization(s) were given, and bandage(s) were applied to injection site. Patient tolerated well, advised patient and or Family/Guardian to stay in the office 20 minutes after injection has been given to observe for any reaction. Immunization(s) was given by Aggie Herrmann MA. [facility] Progress Note 07/09/2023 Kenia Ortiz (: 1990) is a 33 y.o. female , Established patient, here for evaluation of the following chief complaint(s): Follow-up, Hypertension, Depression (/), and Flu Vaccine (Patient agreeable for influenza vaccine-but had reaction when younger-discuss vaccine with provider-does not recall last time she had flu vaccine) ASSESSMENT/PLAN: 1. Anxiety and depression Assessment & Plan: Poorly controlled. Denies any adverse effects of the medication is only been 1 week since starting. Recommend continuing fluoxetine 20 mg daily and establishing with a counselor. Follow-up in approximately 4 weeks sooner for worsening or failure for symptoms to improve 2. Influenza vaccine needed - Flu vaccine, quadrivalent, recombinant, preservative free 3. Primary hypertension Assessment & Plan: Improved. Continue benazepril 10 mg and follow-up as directed Follow up in about 1 month (around 08/09/2023). SUBJECTIVE/OBJECTIVE: HPI - Kenia Ortiz (: 1990) is a 33 y.o. female , Established patient, here for the evaluation of the following chief complaint(s): Follow-up, Hypertension, Depression (/), and Flu Vaccine (Patient agreeable for influenza vaccine-but had reaction when younger-discuss vaccine with provider-does not recall last time she had flu vaccine) Presents for follow-up depression and anxiety. Was recently started on fluoxetine 20 mg, reports that she Is taking fluoxetine 20 mg daily, and is using alarm to remind her to take it. Doing well, denies any adverse effects of medication. States that [facility] has recommended counseling services for her and her daughter which she is in the process of getting set up with. Significant other at home is also probably going to be going to counseling services through [facility] provider. Prior to Admission medications Medication Sig Start Date End Date Taking? Authorizing Provider acyclovir (Zovirax) 400 MG tablet Take 400 mg by mouth. 03/09/21 Yes Historical Provider, albuterol 108 (90 Base) MCG/ACT inhaler Inhale 2 puffs every 6 hours as needed. 03/22/21 Yes Historical Provider, benazepril (Lotensin) 10 MG tablet Take 1 tablet (10 mg) by mouth daily. 07/02/23 Yes BREA Bee CNP FLUoxetine (PROzac) 20 MG capsule Take 1 capsule (20 mg) by mouth daily. 07/02/23 08/31/23 Yes BREA Bee CNP MV-Min-Fe Fum-FA-DHA ( 1 PO) Take 200 mg by mouth in the morning. 05/14/17 Yes Historical Provider, Review of Systems Constitutional: Positive for appetite change. Negative for activity change, chills, fatigue and fever. HENT: Negative. Respiratory: Negative. Genitourinary: Negative. Neurological: Negative. Psychiatric/Behavioral : Positive for decreased concentration, dysphoric mood and sleep disturbance (sleeping too much). Vitals: 07/09/23 1313 07/09/23 1354 BP: (!) 132/90 (!) 130/90 Pulse: 98 98 Resp: 20 Temp: 36.6 ?C (97.9 ?F) TempSrc: Infrared SpO2: 99% Weight: 198 lb (89.8 kg) Physical Exam Constitutional: General: She is not in acute distress. Appearance: Normal appearance. She is not ill-appearing. HENT: Head: Normocephalic and atraumatic. Cardiovascular: Rate and Rhythm: Normal rate and regular rhythm. Pulmonary: Effort: Pulmonary effort is normal. Breath sounds: Normal breath sounds. Skin: General: Skin is warm and dry. Neurological: Mental Status: She is alert and oriented to person, place, and time. An electronic signature was used to authenticate this note. BREA Bee CNP 07/09/2023 4:52 PM [facility] Office Visiton 07-02-2023 Follow-up visit [id number] Kristine Ortiz 1990 F Date Provider Department Center 07/02/2023 [id number] DSOUZA [facility] Family History Problem Relation Age of Onset No Known Problems Mother Cancer Father Comments: unsure of type No Known Problems Sister No Known Problems Sister No Known Problems Brother No Known Problems Brother No Known Problems Brother Family Status - Relation Status Age at Mother Alive Father Alive Sister Alive Sister Alive Brother Alive Brother Alive Brother Alive Maternal Grandmother Alive Maternal Grandfather Alive Paternal Grandmother Paternal Grandfather Level of Service:29380 UT OFFICE/OUTPATIENT ESTABLISHED MOD MDM 30-39 MIN Reason for Visit and Comments: Medication Problem [65] [facility] Progress Noteon 07-02-2023 Progress Note Uncontrolled. Restar t benazepril. Follow up in 1 week. [facility] Progress Note 07/02/2023 Kenia Ortiz (: 1990) is a 33 y.o. female , New patient, here for evaluation of the following chief complaint(s): Medication Problem ASSESSMENT/PLAN: 1. Anxiety and depression Assessment & Plan: Poorly controlled. Denies suicidal or homicidal ideation. Stop escitalopram and start fluoxetine 20 mg daily. Follow up in 1 week. Get established with counseling. Orders: - FLUoxetine (PROzac) 20 MG capsule; Take 1 capsule (20 mg) by mouth daily., Starting Sat07/02/2023, Until 08/31/2023, Normal 2. Primary hypertension Assessment & Plan: Uncontrolled. Restart benazepril. Follow up in 1 week. Orders: - benazepril (Lotensin) 10 MG tablet; Take 1 tablet (10 mg) by mouth daily., Starting Sat07/02/2023, Normal Follow up in about 1 week (around 07/09/2023) for Recheck. SUBJECTIVE/OBJECTIVE: HPI - Kenia Ortiz presents as new patient, previous primary care provider Mauricio, last seen couple months ago by previous provider. Specialists/other providers? Yes, describe: none right now, previously urology, Was going to [facility] in [place]. Chief complaint(s): Medication Problem Htn- elevated supposed to be on benazepril 10 mg - currently not taking. Forgets to take. Needs refill. Anxiety and depression. PHQ9 and LOLY 7 positive. Denies SI/HI. Reports recent increased stressors at home and has CPS evaluating the situation and home d/t child's complaints at school about not feeling safe at home d/t recent verbal argument with significant other. States she will be getting counseling through [facility] referral. Lexapro most recently and bupropion in the past- states she had to stop bupropion because of a urine drug screening problem? Denies being in counseling. Did not think the lexapro was helping much and effected her libido. Uses marijuana 2-3 times per week, denies any other street drug use. Has 2 other children not in her custody. 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 LEFT URETEROSCOPY HOLMIUM LASER LITHOTRIPSY, LEFT STENT CHANGE TUBAL LIGATION 2019 VENTRAL HERNIA REPAIR 2017 twice Family History Problem Relation Name Age of Onset No Known Problems Mother Cancer Father unsure of type No Known Problems Sister No Known Problems Sister No Known Problems Brother No Known Problems Brother No Known Problems Brother Social History Socioeconomic History Marital status: Single Spouse name: Not on file Number of children: Not on file Years of education: Not on file Highest education level: Not on file Occupational History Not on file Tobacco Use Smoking status: Some Days Packs/day: 1 Types: Cigarettes Smokeless tobacco: Never Vaping Use Vaping Use: Never used Substance and Sexual Activity Alcohol use: Not Currently Drug use: Yes Types: Marijuana Comment: vape and smoke. 2-3 times a week Sexual activity: Yes Other Topics Concern Not on file Social History Narrative Engaged to Jeramie, has 2 dtrs and one son, SMOKER. Unemployed, of note does not have custody of her 2 oldest kids, did not divulge information. Presently her youngest daughter lives with her and her boyfriend. Social Determinants of Health Financial Resource Strain: Not on file Food Insecurity: Not on file Transportation Needs: No Transportation Needs (03/14/2023) PRAPARE - Transportation Lack of Transportation (Medical): No Lack of Transportation (Non-Medical): No Physical Activity: Not on file Stress: Not on file Social Connections: Not on file Intimate Partner Violence: Not At Risk (03/15/2023) Humiliation, Afraid, Rape, and Kick questionnaire Fear of Current or Ex-Partner: No Emotionally Abused: No Physically Abused: No Sexually Abused: No Housing Stability: High Risk (03/14/2023) Housing Stability Vital Sign Unable to Pay for Housing in the Last Year: Yes Number of Places Lived in the Last Year: 1 Unstable Housing in the Last Year: No Prior to Admission medications Medication Sig Start Date End Date Taking? Authorizing Provider acyclovir (Zovirax) 400 MG tablet Take 400 mg by mouth. (more content not included)... [facility] Progress Note Patient was identifi ed by name and Date of . [facility] 36on 06-13-2023 36 noted [facility] 36 S: Patient called [facility] clinical access center with complaint of Depression. B: Ongoing 3 months. A: Patient c/o she has been very depressed yelling at and child. She takes Lexapro but does think it is working. Has no sex drive. Does not see therapist or counselor. Denies fever or any pain. No thoughts of self harm or harm to others. R: Appointment scheduled 06/17/23 at 0920 with Miguel Angel Castro. Insurance verified. Instructed to bring medications to and wear a mask. Home Care advice given. Patient instructed to call back with worsening symptoms, concerns or questions. Patient verbalized understanding. Message to the office for review by the provider and needs recommendation from Provider for treatment going forward. Reason for Disposition Symptoms interfere with work or school Protocols used: [id number] [facility] 36 TC to pt to notify h er that we changed her appt from 1:40pm on 07/16/23 to 11:20 am on 07/16/23. Pt informed that visit is a mychart visit. Patient verbalized understanding and has no further questions at this time. [facility] Progress Noteon 04-23-2023 Progress Note Chart reviewed of ED follow up Seen in [facility] ED on 04/18/23 Reason: left flank pain Discharge instructions: Go to Helder Ruiz MD in 1 day [address] [facility] [id number] Patient has appointment scheduled with Cody Ruiz on 04/19/23.. [facility] Progress Noteon 04-19-2023 Progress Note Helder Ruiz MD 04/19/2023 at 8:59 AM Office follow up PATIENT NAME: Kenia Ortiz DATE OF : 1990 TODAY'S DATE: 04/19/2023 CHIEF COMPLAINT: Chief Complaint Patient presents with Procedure Cysto Subjective: Ms. Ortiz is a 33 y.o. 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 LEFT URETEROSCOPY HOLMIUM LASER LITHOTRIPSY, LEFT STENT CHANGE TUBAL LIGATION 2019 VENTRAL HERNIA REPAIR 2017 twice Allergies: Influenza vaccine surface adjuvant, inactivated; Influenza a (h5n1) tiss-cult adjuvanted [influenza a (h5n1) vaccine (tissue-cultured)]; and Raspberry Social History: Social History Socioeconomic History Marital status: Single Spouse name: Not on file Number of children: Not on file Years of education: Not on file Highest education level: Not on file Occupational History Not on file Tobacco Use Smoking status: Some Days Packs/day: 1.00 Types: Cigarettes Smokeless tobacco: Never Vaping Use Vaping Use: Never used Substance and Sexual Activity Alcohol use: Not Currently Drug use: Yes Types: Marijuana Sexual activity: Not on file Other Topics Concern Not on file Social History Narrative Engaged to Jeramie, has 2 dtrs and one son, SMOKER. Unemployed, of note does not have custody of her 2 oldest kids, did not divulge information. Presently her youngest daughter lives with her and her boyfriend. Social Determinants of Health Financial Resource Strain: Not on file Food Insecurity: Not on file Transportation Needs: No Transportation Needs (03/14/2023) PRAPARE - Transportation Lack of Transportation (Medical): No Lack of Transportation (Non-Medical): No Physical Activity: Not on file Stress: Not on file Social Connections: Not on file Intimate Partner Violence: Not At Risk (03/15/2023) Humiliation, Afraid, Rape, and Kick questionnaire Fear of Current or Ex-Partner: No Emotionally Abused: No Physically Abused: No Sexually Abused: No Housing Stability: High Risk (03/14/2023) Housing Stability Vital Sign Unable to Pay for Housing in the Last Year: Yes Number of Places Lived in the Last Year: 1 Unstable Housing in the Last Year: No Family History: Family History Problem Relation Name Age of Onset No Known Problems Sister No Known Problems Brother No Known Problems Brother No Known Problems Mother Cancer Father unsure of type No Known Problems Brother No Known Problems Sister Medications Prior to Admission medications Medication Sig Start Date End Date Taking? Authorizing Provider acyclovir (Zovirax) 400 MG tablet Take 400 mg by mouth. 03/09/21 Yes Historical Provider, albuterol 108 (90 Base) MCG/ACT inhaler Inhale 2 puffs every 6 hours as needed. 03/22/21 Yes Historical Provider, benazepril (Lotensin) 10 MG tablet Take 1 tablet (10 mg) by mouth daily. 02/14/23 Yes Jonathan Martínez DO cefpodoxime (Vantin) 200 MG tablet Take 1 tablet (200 mg) by mouth 2 times daily for 10 days. 04/18/23 04/28/23 Yes Eloisa Squires MD oxybutynin XL (Ditropan XL) 10 MG 24 hr tablet Take 1 tablet (10 mg) by mouth daily. Do not crush, chew, or split. 03/18/23 Yes Heri Brandt, DEVELOPMENT ADVISOR - ASSIGNMENT CLERK MV-Min-Fe Fum-FA-DHA ( 1 PO) Take 200 mg by mouth in the morning. 05/14/17 Yes Historical Provider, tamsulosin (Flomax) 0.4 MG 24 hr capsule Take 1 capsule (0.4 mg) by mouth daily. 03/29/23 06/27/23 Yes Elise Valero MD escitalopram (Lexapro) 20 MG tablet Take 1 tablet (20 mg) by mouth daily for 90 doses. 11/06/22 03/29/23 Jonathan Martínez, Vitals: BP (!) 141/99 Pulse 88 Ht 5' 5 (1.651 m) Wt 208 lb (94.3 kg) BMI 34.61 kg/m? Physical Exam General: No distress Abdomen: Back: : Labs: WBC Lab Results Component Value Date WBC 13.8 (H) 04/18/2023 BMP Lab Results Component Value Date NA 138 04/18/2023 K 3.8 04/18/2023 CL 107 04/18/2023 CO2 21 (L) 04/18/2023 BUN 9 04/18/2023 CREATININE 0.85 04/18/2023 CREATININE 0.73 07/09/2022 CREATININE 0.73 07/09/2022 GLUCOSE 97 04/18/2023 CALCI (more content not included)... [facility] 36on 04-18-2023 36 Called and spoke wit h patient. Was madyson to schedule patient for Cysto Stent removal for 04/19/23 at 8:20am in [place]. [facility] Basic metabolic 1998 panelon 04-18-2023 Anion gap [Moles/Vol] 10 mmol/L 3 - 13 mmol/L [facility] Calcium [Mass/Vol] 9.4 mg/dL 8.4 - 10. 4 mg/dL [facility] Chloride [Moles/Vol] 107 mmol/L 98 - 10 7 mmol/L [facility] CO2 [Moles/Vol] 21 mmol/L Low 22 - 30 mmol/L [facility] Creatinine [Mass/Vol] 0.85 mg/dL 0.52 - 1.04 mg/dL [facility] GFR/1.73 sq M.predicted MDRD (S/P/Bld) [Vol rate/Area] - PINF [facility] Comment on above: Calculation based on the Chronic Kidney Disease Epidemiology Collaboration (CKD-EPI) equation refit without adjustment for race Glucose [Mass/Vol] 97 mg/dL 70 - 100 mg/dL [facility] Interpretation and review of laboratory results Abnormal [facility] Potassium [Moles/Vol] 3.8 mmol/L 3.5 - 5.1 mmol/L [facility] Sodium [Moles/Vol] 138 mmol/L 135 - 145 mmol/L [facility] Urea nitrogen [Mass/Vol] 9 mg/dL 7 - 17 mg/dL [facility] CBC W Auto Differential pane l (Bld)Ordered By: Yadira Hawkins on 04-18-2023 Basophils (Bld) [#/Vol] 0.1 10*3/uL 0.0 - 0.2 10*3/uL [facility] Basophils/100 WBC (Bld) 0.4 % 0.0 - 2.0 % [facility] Eosinophils (Bld) [#/Vol] 0.6 10*3/uL High 0.0 - 0.5 10*3/uL [facility] Eosinophils/100 WBC (Bld) 4.0 % 1.0 - 6.0 % [facility] Erythrocyte distribution width (RBC) [Ratio] 12.5 % 11.5 - 14.5 % [facility] Hematocrit (Bld) [Volume fraction] 40.3 % 35.0 - 47.0 % [facility] Hemoglobin (Bld) [Mass/Vol] 14.4 g/dL 11.7 - 16.0 g/dL [facility] Immature granulocytes (Bld) [#/Vol] 0.0 10*3/uL NINF - 0.0 10*3/uL [facility] Immature granulocytes/100 WBC (Bld) 0.3 % High NINF - 0.0 % [facility] Interpretation and review of laboratory results Abnormal [facility] Lymphocytes (Bld) [#/Vol] 3.5 10*3/uL 1.0 - 4.3 10*3/uL [facility] Lymphocytes/100 WBC (Bld) 25.2 % 20.0 - 40.0 % [facility] MCH (RBC) [Entitic mass] 31.6 pg 26. 0 - 34.0 pg [facility] MCHC (RBC) [Mass/Vol] 35.7 % 32.0 - 36.0 % [facility] MCV (RBC) [Entitic vol] 88.4 fL 80.0 - 98.0 fL [facility] Monocytes (Bld) [#/Vol] 0.8 10*3/uL 0.0 - 0.8 10*3/uL [facility] Monocytes/100 WBC (Bld) 6.0 % 2.0 - 10.0 % [facility] Neutrophils (Bld) [#/Vol] 8.8 10*3/uL High 1.8 - 7.0 10*3/uL [facility] Neutrophils/100 WBC (Bld) 64.1 % 40.0 - 80.0 % [facility] Platelet mean volume (Bld) [Entitic vol] 8.9 fL 7.4 - 12.4 fL [facility] Comment on above: MPV is a calculated measurement using platelet volume ratio Platelets (Bld) [#/Vol] 352 10*3/uL 140 - 440 10*3/uL [facility] RBC (Bld) [#/Vol] 4.56 10*6/uL 3.8 - 5.20 10*6/uL [facility] WBC (Bld) [#/Vol] 13.8 10*3/uL High 3.6 - 10.7 10*3/uL [facility] CT ABDOMEN PELVIS WO IV CONT [facility] 04-18-2023 CT ABDOMEN PELVIS WO IV CONTRAST Patient Name: KENIA ORTIZ : 1990 [facility]#: [id number] Exam Date/Time: 04/18/2023 21:06 Procedure: CT ABDOMEN PELVIS WO IV CONTRAST Ordering Provider: SQUIRES SCOTT Reason For Exam: Flank pain, kidney stone suspected CT ABDOMEN AND PELVIS WITHOUT CONTRAST CLINICAL INDICATION: Flank pain, kidney stone suspected TECHNIQUE: CT scan of the abdomen and pelvis without IV/oral contrast. Multiplanar reformations. Dose reduction was employed with automated exposure control. COMPARISON: 03/13/2023 FINDINGS: Solid organ evaluation limited from lack of IV contrast. Lung bases are clear. No free intraperitoneal gas seen. Liver shows no significant abnormality. Normal-appearing biliary tree status-post cholecystectomy. Spleen shows no significant abnormality. Adrenal glands show no significant abnormality. Numerous tiny calculi throughout the bilateral kidneys, which could relate to medullary sponge kidney. Mild left hydronephrosis and perinephric stranding. There is a left ureteral stent in satisfactory position. No ureteral calculi seen. There is some stranding along the course of the left ureter. This appearance is similar to the previous study. Previously seen left UPJ calculus no longer apparent. Pancreas shows no significant abnormality. Adrenal glands show no significant abnormality. Midline abdominal wall hernia just above the level of the umbilicus unchanged, which contains fat. No bowel herniation seen. Nonaneurysmal aorta. No bowel obstruction. Grossly normal left ovary. Right ovary not seen with certainty Inflamed appearing bladder, which is new since the previous study. IMPRESSION: 1. Inflamed appearing bladder, correlate for possible cystitis. Pyelitis/pyelonephriti s not excluded given stranding along the course of the left ureter and perinephric stranding though these were present previously. Previously seen left UPJ calculus no longer visualized. 2. 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 3. Fat-containing abdominal wall hernia unchanged. Report Dictated on Electronically Signed By: Reza Lora MD Electronically Signed Date/Time: 04/18/2023 9:40 PM EDT [facility] CT Abdomen WO contraston 1. Inflamed appearing bladder, correlate for possible cystitis. Pyelitis/pyelonephriti s not excluded given stranding along the course of the left ureter and perinephric stranding though these were present previously. Previously seen left UPJ calculus no longer visualized. 2. 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 3. Fat-containing abdominal wall hernia unchanged. Report Dictated on Electronically Signed By: Reza Lora MD Electronically Signed Date/Time: 04/18/2023 9:40 PM EDT [facility] [employer] Patient Name: KENIA ORTIZ : 1990 Exam Date/Time: 04/18/2023 21:06 Procedure: CT ABDOMEN PELVIS WO IV CONTRAST Ordering Provider: SQUIRES SCOTT Reason For Exam: Flank pain, kidney stone suspected CT ABDOMEN AND PELVIS WITHOUT CONTRAST CLINICAL INDICATION: Flank pain, kidney stone suspected TECHNIQUE: CT scan of the abdomen and pelvis without IV/oral contrast. Multiplanar reformations. Dose reduction was employed with automated exposure control. COMPARISON: 03/13/2023 FINDINGS: Solid organ evaluation limited from lack of IV contrast. Lung bases are clear. No free intraperitoneal gas seen. Liver shows no significant abnormality. Normal-appearing biliary tree status-post cholecystectomy. Spleen shows no significant abnormality. Adrenal glands show no significant abnormality. Numerous tiny calculi throughout the bilateral kidneys, which could relate to medullary sponge kidney. Mild left hydronephrosis and perinephric stranding. There is a left ureteral stent in satisfactory position. No ureteral calculi seen. There is some stranding along the course of the left ureter. This appearance is similar to the previous study. Previously seen left UPJ calculus no longer apparent. Pancreas shows no significant abnormality. Adrenal glands show no significant abnormality. Midline abdominal wall hernia just above the level of the umbilicus unchanged, which contains fat. No bowel herniation seen. Nonaneurysmal aorta. No bowel obstruction. Grossly normal left ovary. Right ovary not seen with certainty Inflamed appearing bladder, which is new since the previous study. [facility] Reza Lora MD - 04/18/2023 Patient Name: KENIA ORTIZ : 1990 Exam Date/Time: 04/18/2023 21:06 Procedure: CT ABDOMEN PELVIS WO IV CONTRAST Ordering Provider: SQUIRES SCOTT Reason For Exam: Flank pain, kidney stone suspected CT ABDOMEN AND PELVIS WITHOUT CONTRAST CLINICAL INDICATION: Flank pain, kidney stone suspected TECHNIQUE: CT scan of the abdomen and pelvis without IV/oral contrast. Multiplanar reformations. Dose reduction was employed with automated exposure control. COMPARISON: 03/13/2023 FINDINGS: Solid organ evaluation limited from lack of IV contrast. Lung bases are clear. No free intraperitoneal gas seen. Liver shows no significant abnormality. Normal-appearing biliary tree status-post cholecystectomy. Spleen shows no significant abnormality. Adrenal glands show no significant abnormality. Numerous tiny calculi throughout the bilateral kidneys, which could relate to medullary sponge kidney. Mild left hydronephrosis and perinephric stranding. There is a left ureteral stent in satisfactory position. No ureteral calculi seen. There is some stranding along the course of the left ureter. This appearance is similar to the previous study. Previously seen left UPJ calculus no longer apparent. Pancreas shows no significant abnormality. Adrenal glands show no significant abnormality. Midline abdominal wall hernia just above the level of the umbilicus unchanged, which contains fat. No bowel herniation seen. Nonaneurysmal aorta. No bowel obstruction. Grossly normal left ovary. Right ovary not seen with certainty Inflamed appearing bladder, which is new since the previous study. IMPRESSION: 1. Inflamed appearing bladder, correlate for possible cystitis. Pyelitis/pyelonephriti s not excluded given stranding along the course of the left ureter and perinephric stranding though these were present previously. Previously seen left UPJ calculus no longer visualized. 2. 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 3. Fat-containing abdominal wall hernia unchanged. Report Dictated on Electronically Signed By: Reza Lora MD Electronically Signed Date/Time: 04/18/2023 9:40 PM EDT [facility] Radiology Study observation (narrative) [facility] CT Abdomen WO contrastOrdere d By: Reza Lora on 04-18-2023 [facility] Work Phone: ED Nursing Noteon 04-18-2023 ED Nursing Note Pt states pain medication wore off. Pain 06/25 Kathleen Gonzalez RN 04/18/232109 [facility] ED Nursing Note Pt presents to the E D with acute left flank pain. Pt states she had a stent placed 2-3 weeks ago and was to have it removed yesterday but states she could not locate the place she needed to go and go frustrated and rescheduled her apt for tomorrow. Pt states she started having pain this evening. Pt states it feels like she has a boulder on her back. Pt states she has been having burning. Pt was wheeled back to the unit. Pt mom is at bedside and call light is within reach. [facility] ED Provider Noteon ED Provider Note EMERGENCY DEPARTMENT ENCOUNTER Pt Name: Kenia Ortiz Birthdate 1990 Date of evaluation: 04/18/2023 ED Provider: Eloisa Squires MD CHIEF COMPLAINT No chief complaint on file. HISTORY OF PRESENT ILLNESS (Location/Symptom, Timing/Onset, Context/Setting, Quality, Duration, Modifying Factors, Severity) Note limiting factors. I wore appropriate PPE for the entirety of this encounter. HPI Kenia Ortiz is a 33 y.o. who presents to the emergency department chief complaint of left flank pain that began about a couple hours prior to presentation. Patient had a 1.1 cm proximal ureteral calculi that reportedly is obstructing causing moderate left renal hydronephrosis. Patient less than 3 weeks ago had a ureteral stent placed with lithotripsy by Dr. Hutchins. Patient is scheduled for cystoscopy and stent removal tomorrow morning at 8:20 AM at [facility] with Dr. Ruiz. Patient states that she took ketorolac orally couple hours prior to presentation. Nursing Notes were reviewed. REVIEW OF SYSTEMS Review of Systems Constitutional: Negative for fever. HENT: Negative for sore throat. Respiratory: Negative for shortness of breath. Cardiovascular: Negative for chest pain. Gastrointestinal: Positive for nausea. Negative for abdominal pain. Genitourinary: Positive for dysuria, flank pain and hematuria. Skin: Negative for rash. Allergic/Immunologic: Negative for immunocompromised state. Hematological: Does not bruise/bleed easily. 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 LEFT URETEROSCOPY HOLMIUM LASER LITHOTRIPSY, LEFT STENT CHANGE TUBAL LIGATION 2019 VENTRAL HERNIA REPAIR 2017 twice CURRENT MEDICATIONS Previous Medications ACYCLOVIR (ZOVIRAX) 400 MG TABLET Take 400 mg by mouth. ALBUTEROL 108 (90 BASE) MCG/ACT INHALER Inhale 2 puffs every 6 hours as needed. BENAZEPRIL (LOTENSIN) 10 MG TABLET Take 1 tablet (10 mg) by mouth daily. ESCITALOPRAM (LEXAPRO) 20 MG TABLET Take 1 tablet (20 mg) by mouth daily for 90 doses. OXYBUTYNIN XL (DITROPAN XL) 10 MG 24 HR TABLET Take 1 tablet (10 mg) by mouth daily. Do not crush, chew, or split. MV-MIN-FE FUM-FA-DHA ( 1 PO) Take 200 mg by mouth in the morning. TAMSULOSIN (FLOMAX) 0.4 MG 24 HR CAPSULE Take 1 capsule (0.4 mg) by mouth daily. ALLERGIES Influenza vaccine surface adjuvant, inactivated; Influenza a (h5n1) tiss-cult adjuvanted [influenza a (h5n1) vaccine (tissue-cultured)]; and Raspberry FAMILY HISTORY Family History Problem Relation Name Age of Onset No Known Problems Sister No Known Problems Brother No Known Problems Brother No Known Problems Mother Cancer Father unsure of type No Known Problems Brother No Known Problems Sister SOCIAL HISTORY Social History Socioeconomic History Marital status: Single Tobacco Use Smoking status: Some Days Packs/day: 1.00 Types: Cigarettes Smokeless tobacco: Never Vaping Use Vaping Use: Never used Substance and Sexual Activity Alcohol use: Not Currently Drug use: No Types: Marijuana Social History Narrative Engaged to Jeramie, has 2 dtrs and one son, SMOKER. Unemployed, of note does not have custody of her 2 oldest kids, did not divulge information. Presently her youngest daughter lives with her and her boyfriend. Social Determinants of Health Transportation Needs: No Transportation Needs (03/14/2023) PRAPARE - Transportation Lack of Transportation (Medical): No Lack of Transportation (Non-Medical): No Intimate Partner Violence: Not At Risk (03/15/2023) Humiliation, Afraid, Rape, and Kick questionnaire Fear of Current or Ex-Partner: No Emotionally Abused: No Physically Abused: No Sexually Abused: No Housing Stability: High Risk (03/14/2023) Housing Stability Vital Sign Unable to Pay for Housing in the Last Year: Yes Number of Places Lived in the Last Year: 1 Unstable Housing in the Last Year: No SCREENINGS PHYSICAL EXAM ED Triage Vitals Temp Pulse Resp BP -- -- -- -- SpO2 Temp src Heart Rate Source Patient Position -- -- -- -- BP Location FiO2 (%) -- -- Physical Exam Vitals and n (more content not included)... Normal [facility] Laboratory - Chemistry and C hemistry - challengeon 04-18-2023 Beta HCG ( test) Ql Negative Negative [facility] Comment on above: Please note: Very di lute urine specimens, as indicated by a low specific gravity, may not contain member services representative levels of hCG. If is still suspected, a first morning urine specimen should be collected 48 hours later and tested. Beta HCG ( test) Ql (U) is the most common reason for HCG in urine, although choriocarcinoma, hydatidiform mole, and certain nontrophoblastic malignancies also result in detectable urinary HCG levels. Sensitivity = 20mIU/mL. [facility] No Panel Informationon 04-18 [facility] Urinalysis complete panel (U )on 04-18-2023 Bacteria LM.HPF (Urine sed) [#/Area] Few Abnormal Negative /HPF [facility] Bilirubin Ql (U) Negative Negative mg/dL [facility] Clarity (U) Turbid Abnormal Clear [facility] Color (U) Yellow Lt. Yellow [facility] Epithelial cells.squamous LM.HPF (Urine sed) [#/Area] [facility]) Normal Normal (<70) mg/dL [facility] Hemoglobin Ql (U) >1.0 Abnormal Negative mg/dL [facility] Interpretation and review of laboratory results Abnormal [facility] Ketones (U) [Mass/Vol] Negative Negat gómez mg/dL [facility] Leukocyte esterase Test strip Ql (U) 500 Abnormal Negative Jonel/uL [facility] Mucus LM.HPF (Urine sed) [#/Area] Few Negative /LPF [facility] Nitrite Ql (U) Negative Negative [facility] th pH (U) 6.0 [pH] 5.0 - 8.0 pH [facility] Protein (U) [Mass/Vol] 300 mg/dL Abnormal Negative [facility] RBC LM.HPF (Urine sed) [#/Area] 26-50 Abnormal [facility] Specific gravity (U) [Rel density] 1.023 1.005 - 1.030 [facility] Urobilinogen (U) [Mass/Vol] Normal Normal (0-1) mg/dL [facility] Volume, Urine 8-12 mL [facility] WBC LM.HPF (Urine sed) [#/Area] 11-25 Abnormal [facility] 36on 04-12-2023 36 Patient LVM on clinical line stating that she's in pain and have urinary frequency. LVM that it is all normal symptoms that she's having due to having a STENT in place. Patient to call office or go to the [facility] ER if she developed a fever above 101, N&V, unable to urinate and uncontrollable pain. Patient can take Tylenol or Ibuprofen alternating between the two medications and use heating pad and drink plenty of fluids. Call office if she has any further questions or concerns. [facility] 36on 04-11-2023 36 Sent patient a [employer] message to follow up on post op pain. Unable to send a my chart message from this TE, had to create a new one. Closing this TE at this time. [facility] 36on 04-10-2023 36 S: Patient spoke ethel MONIQUE nurse regarding pain with urination B: Onset of symptoms/concern per ticket in Que A: 2nd attempt 19:35. No Contact No triage. 3 rd attempt 19:40 No answer,No Contact LVM for pt to call back with questions or concerns. R: Patient understands care advice. No further needs at this time. Patient instructed to call back with new or worsening symptoms. [facility] 36 S: Patient called [facility] [place] regarding wanting to know if it is normal to be in pain still when urinating. Patient is post-op 03/29. B: Per nurse triage ticket created by NERY A: Patient disconnected prior to speaking with nurse. No answer upon return call to patient. R: Left message for patient that we would try her again later or she can call back in if assistance is still needed. Reason for Disposition Message left on identified voice mail Protocols used: No Contact or Duplicate Contact [id number] [facility] HCG ( test) Ql (U)o n 03-29-2023 Beta HCG ( test) Ql (U) [id number] [facility] Interpretation and review of laboratory results Normal [facility] NEGATIVE QC Pass [facility] POSITIVE QC Pass [facility] Preg Test, Ur Negative [facility] No Panel Informationon 03-29 There is no interpretation needed for this exam. IMAGING Bacteria identified Cx Nom ( U)Ordered By: Farzaneh Murillo on 03-15-2023 Interpretation and review of laboratory results Normal [facility] HCG ( test) Ql (U)o n 03-15-2023 Beta HCG ( test) Ql (U) [id number] [facility] Interpretation and review of laboratory results Normal [facility] NEGATIVE QC Pass [facility] POSITIVE QC Pass [facility] Gastrofy Preg Test, Ur Negative Negative [facility] Laboratory - Microbiology an d Antimicrobial susceptibilityOrdered By: Farzaneh Murillo on 03-15-2023 Bacteria identified Cx Nom (U) Normal urogenital roma present [facility] No Panel Informationon 03-15 There is no interpretation needed for this exam. IMAGING CT Abdomen WO contraston 1. Obstructing 1.1 cm proximal ureteral calculus in similar position to prior imaging on 12/26/2022 causing moderate left renal hydronephrosis with persistent distention of the left ureter along its course distal to the obstruction. The left kidney is edematous with perinephric stranding and edema likely reflecting a superimposed infectious/inflammator y process. 2. 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 3. Cholecystectomy. 4. Additional stable findings, as above. Report Dictated on Electronically Signed By: Padmaja Amin Electronically Signed Date/Time: 03/14/2023 12:20 AM [facility] Patient Name: KENIA ORTIZ : 1990 Exam Date/Time: 03/14/2023 00:01 Procedure: CT ABDOMEN PELVIS WO IV CONTRAST Ordering Provider: STEARNS VISHNU Reason For Exam: Flank pain, kidney stone suspected CT ABDOMEN AND PELVIS Indication: 32-year-old; flank pain; left-sided flank pain; no urinary symptoms Scan Parameters: Multiple axial CT images were obtained of the abdomen and pelvis. Coronal and sagittal reconstructions were reviewed as well. ALARA protocol. Dose reduction was employed with automated exposure control. Contrast: No IV and no oral contrast Comparison: 12/26/2022 FINDINGS: Bibasilar atelectasis. No sizable pericardial effusion. Aorta contour is within normal limits. Fatty ventral hernia at the midline, unchanged. The liver contour and size is stable with persistent elevation of the right hemidiaphragm. The gallbladder is absent. The pancreas, spleen, and adrenal glands are within normal limits. 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 The left kidney is edematous with perinephric stranding and edema and fluid. There is an obstructing proximal ureteral 1.1 x 0.6 x 0.7 cm calculus causing hydronephrosis and distention of the renal pelvis.. The ureter distal to this calculus remains distended with mild enhancement which may be due to superimposed infectious/inflammator y process and/or recent passing of an additional calculus. Bilateral renal calculi are present. There is stranding along the course of the left ureter. The bladder contour is normal. The uterus is anteverted. Bilateral ovarian follicular cystic changes are present. The appendix is normal in the right lower quadrant. Mild to moderate fecal retention is present. There are multiple loops of decompressed small bowel which are fluid-filled. A small hiatal hernia is present. Reactive retroperitoneal lymph nodes are present. There is prominence of the left renal artery. [facility] Padmaja Amin MD - 03/14/2023 Patient Name: KENIA ORTIZ : 1990 Exam Date/Time: 03/14/2023 00:01 Procedure: CT ABDOMEN PELVIS WO IV CONTRAST Ordering Provider: STEARNS VISHNU Reason For Exam: Flank pain, kidney stone suspected CT ABDOMEN AND PELVIS Indication: 32-year-old; flank pain; left-sided flank pain; no urinary symptoms Scan Parameters: Multiple axial CT images were obtained of the abdomen and pelvis. Coronal and sagittal reconstructions were reviewed as well. ALARA protocol. Dose reduction was employed with automated exposure control. Contrast: No IV and no oral contrast Comparison: 12/26/2022 FINDINGS: Bibasilar atelectasis. No sizable pericardial effusion. Aorta contour is within normal limits. Fatty ventral hernia at the midline, unchanged. The liver contour and size is stable with persistent elevation of the right hemidiaphragm. The gallbladder is absent. The pancreas, spleen, and adrenal glands are within normal limits. 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 The left kidney is edematous with perinephric stranding and edema and fluid. There is an obstructing proximal ureteral 1.1 x 0.6 x 0.7 cm calculus causing hydronephrosis and distention of the renal pelvis.. The ureter distal to this calculus remains distended with mild enhancement which may be due to superimposed infectious/inflammator y process and/or recent passing of an additional calculus. Bilateral renal calculi are present. There is stranding along the course of the left ureter. The bladder contour is normal. The uterus is anteverted. Bilateral ovarian follicular cystic changes are present. The appendix is normal in the right lower quadrant. Mild to moderate fecal retention is present. There are multiple loops of decompressed small bowel which are fluid-filled. A small hiatal hernia is present. Reactive retroperitoneal lymph nodes are present. There is prominence of the left renal artery. IMPRESSION: 1. Obstructing 1.1 cm proximal ureteral calculus in similar position to prior imaging on 12/26/2022 causing moderate left renal hydronephrosis with persistent distention of the left ureter along its course distal to the obstruction. The left kidney is edematous with perinephric stranding and edema likely reflecting a superimposed infectious/inflammator y process. 2. 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 3. Cholecystectomy. 4. Additional stable findings, as above. Report Dictated on Electronically Signed By: Padmaja Amin Electronically Signed Date/Time: 03/14/2023 12:[address] [employer] CT Abdomen WO contrastOrdere d By: Padmaja Amin on 03-14-2023 [employer] Work Phone: XR Abdomen Single viewon Impression: 1. Nonspecific bowel gas pattern without evidence of obstruction. 2. 8 mm calcification medial to the left renal shadow compatible with a renal pelvic or proximal ureteral calculus. 3. No other suspect urinary collecting system calcified calculi. Report Dictated on Electronically Signed By: Robert Dunn Electronically Signed Date/Time: 03/14/2023 11:05 AM EDT [facility] Patient Name: KENIA ORTIZ : 1990 Exam Date/Time: 03/14/2023 10:57 Procedure: XR ABDOMEN 1 VIEW Ordering Provider: BRANDT JASON Reason For Exam: NEPHROLITHIASIS Clinical Information: History of nephrolithiasis. Abdomen, single view, KUB: A single AP supine view of the abdomen which does not include the extreme upper abdomen or pelvis demonstrates a nonspecific bowel gas pattern. Gas and fecal residue is seen in nondistended large bowel. There is no appreciable small bowel gas. There is no obvious free intraperitoneal gas on limited evaluation. There is an ovoid 8 mm calcification related to the medial to the left renal shadow which could be a renal pelvic or proximal ureteral calculus. No other suspect calcification is seen related to either renal shadow or along the expected course of either ureter or the urinary bladder. [facility] Robert Dunn MD - 03/14/2023 Patient Name: KENIA ORTIZ : 1990 Exam Date/Time: 03/14/2023 10:57 Procedure: XR ABDOMEN 1 VIEW Ordering Provider: BRANDT JASON Reason For Exam: NEPHROLITHIASIS Clinical Information: History of nephrolithiasis. Abdomen, single view, KUB: A single AP supine view of the abdomen which does not include the extreme upper abdomen or pelvis demonstrates a nonspecific bowel gas pattern. Gas and fecal residue is seen in nondistended large bowel. There is no appreciable small bowel gas. There is no obvious free intraperitoneal gas on limited evaluation. There is an ovoid 8 mm calcification related to the medial to the left renal shadow which could be a renal pelvic or proximal ureteral calculus. No other suspect calcification is seen related to either renal shadow or along the expected course of either ureter or the urinary bladder. IMPRESSION: Impression: 1. Nonspecific bowel gas pattern without evidence of obstruction. 2. 8 mm calcification medial to the left renal shadow compatible with a renal pelvic or proximal ureteral calculus. 3. No other suspect urinary collecting system calcified calculi. Report Dictated on Electronically Signed By: Robert Dunn Electronically Signed Date/Time: 03/14/2023 11:05 AM EDT [facility] Radiology Study observation (narrative) [facility] XR Abdomen Single viewOrdere d By: Robert Dunn on 03-14-2023 [facility] Work Phone: Basic metabolic 1998 panelon 03-13-2023 Anion gap [Moles/Vol] 9 mmol/L 3 - 13 mmol/L [facility] Calcium [Mass/Vol] 9.2 mg/dL 8.4 - 10. 4 mg/dL [facility] Chloride [Moles/Vol] 105 mmol/L 98 - 10 7 mmol/L [facility] CO2 [Moles/Vol] 24 mmol/L 22 - 30 mmol/L [facility] Creatinine [Mass/Vol] 0.75 mg/dL 0.52 - 1.04 mg/dL [facility] GFR/1.73 sq M.predicted MDRD (S/P/Bld) [Vol rate/Area] - PINF [facility] Comment on above: Calculation based on the Chronic Kidney Disease Epidemiology Collaboration (CKD-EPI) equation refit without adjustment for race Glucose [Mass/Vol] 114 mg/dL High 70 - 100 mg/dL [facility] Interpretation and review of laboratory results Abnormal [facility] Potassium [Moles/Vol] 3.7 mmol/L 3.5 - 5.1 mmol/L [facility] Sodium [Moles/Vol] 139 mmol/L 135 - 145 mmol/L [facility] Urea nitrogen [Mass/Vol] 6 mg/dL Low 7 - 17 mg/dL [facility] CBC W Auto Differential pane l (Bld)Ordered By: Yadira Hawkins on 03-13-2023 Basophils (Bld) [#/Vol] 0.1 10*3/uL 0.0 - 0.2 10*3/uL [facility] Basophils/100 WBC (Bld) 0.4 % 0.0 - 2.0 % [facility] Eosinophils (Bld) [#/Vol] 0.3 10*3/uL 0.0 - 0.5 10*3/uL [facility] Eosinophils/100 WBC (Bld) 2.5 % 1.0 - 6.0 % [facility] Erythrocyte distribution width (RBC) [Ratio] 12.4 % 11.5 - 14.5 % [facility] Hematocrit (Bld) [Volume fraction] 41.6 % 35.0 - 47.0 % [facility] Hemoglobin (Bld) [Mass/Vol] 14.8 g/dL 11.7 - 16.0 g/dL [facility] Immature granulocytes (Bld) [#/Vol] 0.0 10*3/uL NINF - 0.0 10*3/uL [facility] Immature granulocytes/100 WBC (Bld) 0.3 % High NINF - 0.0 % [facility] Interpretation and review of laboratory results Abnormal [facility] Lymphocytes (Bld) [#/Vol] 2.9 10*3/uL 1.0 - 4.3 10*3/uL [facility] Lymphocytes/100 WBC (Bld) 21.0 % 20.0 - 40.0 % [facility] MCH (RBC) [Entitic mass] 31.7 pg 26. 0 - 34.0 pg [facility] MCHC (RBC) [Mass/Vol] 35.6 % 32.0 - 36.0 % [facility] MCV (RBC) [Entitic vol] 89.1 fL 80.0 - 98.0 fL [facility] Monocytes (Bld) [#/Vol] 0.7 10*3/uL 0.0 - 0.8 10*3/uL [facility] Monocytes/100 WBC (Bld) 5.0 % 2.0 - 10.0 % [facility] Neutrophils (Bld) [#/Vol] 9.8 10*3/uL High 1.8 - 7.0 10*3/uL [facility] Neutrophils/100 WBC (Bld) 70.8 % 40.0 - 80.0 % [facility] Platelet mean volume (Bld) [Entitic vol] 8.9 fL 7.4 - 12.4 fL [facility] Comment on above: MPV is a calculated measurement using platelet volume ratio Platelets (Bld) [#/Vol] 298 10*3/uL 140 - 440 10*3/uL [facility] RBC (Bld) [#/Vol] 4.67 10*6/uL 3.8 - 5.20 10*6/uL [facility] WBC (Bld) [#/Vol] 13.8 10*3/uL High 3.6 - 10.7 10*3/uL [facility] CT Abdomen WO contraston Radiology Study observation (narrative) [facility] Laboratory - Chemistry and C hemistry - challengeon 03-13-2023 Beta HCG ( test) Ql Negative Negative [facility] Comment on above: Please note: Very di lute urine specimens, as indicated by a low specific gravity, may not contain member services representative levels of hCG. If is still suspected, a first morning urine specimen should be collected 48 hours later and tested. Beta HCG ( test) Ql (U) is the most common reason for HCG in urine, although choriocarcinoma, hydatidiform mole, and certain nontrophoblastic malignancies also result in detectable urinary HCG levels. Sensitivity = 20mIU/mL. [facility] No Panel Informationon 03-13 [facility] Urinalysis complete panel (U )on 03-13-2023 Bacteria LM.HPF (Urine sed) [#/Area] Few Abnormal Negative /HPF [facility] Bilirubin Ql (U) Negative Negative mg/dL [facility] Clarity (U) Clear Clear [facility] Color (U) Light Yellow Lt. Yellow [facility] Epithelial cells.squamous LM.HPF (Urine sed) [#/Area] 6-[address] [facility] h Glucose Ql (U) Normal Normal (<70) mg/dL [facility] Hemoglobin Ql (U) 0.1 mg/dL Abnormal Negative [facility] Interpretation and review of laboratory results Abnormal [facility] Ketones (U) [Mass/Vol] Negative Negat gómez mg/dL [facility] Leukocyte esterase Test strip Ql (U) 75 Abnormal Negative Jonel/uL [facility] Nitrite Ql (U) Negative Negative [facility] th pH (U) 6.0 [pH] 5.0 - 8.0 pH [facility] Protein (U) [Mass/Vol] 30 mg/dL Abnormal Negative [facility] RBC LM.HPF (Urine sed) [#/Area] 6-10 Abnormal [facility] Specific gravity (U) [Rel density] 1.008 1.005 - 1.030 [facility] Urobilinogen (U) [Mass/Vol] Normal Normal (0-1) mg/dL [facility], [facility] (Urine sed) [#/Area] 3-5 [facility] Basic metabolic 1998 panelon 12-26-2022 Anion gap [Moles/Vol] 3 mmol/L 3 - 13 mmol/L [facility] Calcium [Mass/Vol] 9.0 mg/dL 8.4 - 10. 4 mg/dL [facility] Chloride [Moles/Vol] 104 mmol/L 98 - 10 7 mmol/L [facility] CO2 [Moles/Vol] 28 mmol/L 22 - 30 mmol/L [facility] Creatinine [Mass/Vol] 0.65 mg/dL 0.52 - 1.04 mg/dL [facility] GFR/1.73 sq M.predicted MDRD (S/P/Bld) [Vol rate/Area] - PINF [facility] Comment on above: Calculation based on the Chronic Kidney Disease Epidemiology Collaboration (CKD-EPI) equation refit without adjustment for race Glucose [Mass/Vol] 140 mg/dL High 70 - 100 mg/dL [facility] Interpretation and review of laboratory results Abnormal [facility] Potassium [Moles/Vol] 3.8 mmol/L 3.5 - 5.1 mmol/L [facility] Sodium [Moles/Vol] 136 mmol/L 135 - 145 mmol/L [facility] Urea nitrogen [Mass/Vol] 9 mg/dL 7 - 17 mg/dL [facility] CBC panel Auto (Bld)on 12-26 Erythrocyte distribution width (RBC) [Ratio] 12.7 % 11.5 - 14.5 % [facility] Hematocrit (Bld) [Volume fraction] 40.2 % 35.0 - 47.0 % [facility] Hemoglobin (Bld) [Mass/Vol] 13.9 g/dL 11.7 - 16.0 g/dL [facility] Interpretation and review of laboratory results Normal [facility] MCH (RBC) [Entitic mass] 31.7 pg 26. 0 - 34.0 pg [facility] MCHC (RBC) [Mass/Vol] 34.6 % 32.0 - 36.0 % [facility] MCV (RBC) [Entitic vol] 91.6 fL 80.0 - 98.0 fL [facility] Platelet mean volume (Bld) [Entitic vol] 9.0 fL 7.4 - 12.4 fL [facility] Comment on above: MPV is a calculated measurement using platelet volume ratio Platelets (Bld) [#/Vol] 299 10*3/uL 140 - 440 10*3/uL [facility] RBC (Bld) [#/Vol] 4.39 10*6/uL 3.8 - 5.20 10*6/uL [facility] WBC (Bld) [#/Vol] 8.6 10*3/uL 3.6 - 10.7 10*3/uL [facility] CT Abdomen WO contraston 1. Mild left renal hydronephrosis due to an obstructing 6 mm proximal ureteral calculus at the UPJ. This appears similar to 02/19/2022. There is stranding in the surrounding fat concerning for infectious/inflammator y process. 2. Medullary sponge disease. 3. Mild bladder wall thickening, correlate for cystitis. 4. Cholecystectomy. Report Dictated on Electronically Signed By: Padmaja Amin Electronically Signed Date/Time: 12/26/2022 4:11 AM [facility] Patient Name[facility] 1990 [id number] Exam Date/Time: 12/26/2022 03:11 Procedure: CT ABDOMEN PELVIS WO IV CONTRAST Ordering Provider: KAPLAN JOSEPH Reason For Exam: Flank pain, kidney stone suspected CT ABDOMEN AND PELVIS Indication: 32-year-old; flank pain Scan Parameters: Multiple axial CT images were obtained of the abdomen and pelvis. Coronal and sagittal reconstructions were reviewed as well. ALARA protocol. Dose reduction was employed with automated exposure control. Contrast: No IV and no oral contrast. Comparison: 02/19/2022 FINDINGS: Lung bases: Lung base atelectasis. Osseous structures: Normal. Liver: The hepatic contour is unremarkable. Gallbladder/Biliary tree: No biliary dilatation. The gallbladder is surgically absent. Spleen: Normal. Adrenals: Normal. Pancreas: Normal. Kidneys/Bladder: Medullary sponge disease with calcifications along the medullary pyramids and collecting systems. Mild left renal hydronephrosis with a 6 mm obstructing calculus in the proximal ureter at the UPJ. There is stranding and edema in the surrounding fatty tissue. The bladder is decompressed with mild wall thickening. Uterus/Ovaries: The uterus is anteverted with fluid in endometrial canal. Bilateral ovarian follicular cystic changes present. Peritoneal Cavity/Retroperitoneum : No lymphadenopathy. Other: Small fatty ventral hernia at the midline. GI Tract: Appendix is normal at the midline anteriorly. The bowel gas pattern is nonspecific. Multiple loops of decompressed small bowel, many of which contain fluid. Fecal retention is present. Vasculature: Normal contour. [facility] Padmaja Amin MD - 12/26/2022 Patient Name: KENIA ORTIZ [facility] 1990 [id number] Exam Date/Time: 12/26/2022 03:11 Procedure: CT ABDOMEN PELVIS WO IV CONTRAST Ordering Provider: KAPLAN JOSEPH Reason For Exam: Flank pain, kidney stone suspected CT ABDOMEN AND PELVIS Indication: 32-year-old; flank pain Scan Parameters: Multiple axial CT images were obtained of the abdomen and pelvis. Coronal and sagittal reconstructions were reviewed as well. ALARA protocol. Dose reduction was employed with automated exposure control. Contrast: No IV and no oral contrast. Comparison: 02/19/2022 FINDINGS: Lung bases: Lung base atelectasis. Osseous structures: Normal. Liver: The hepatic contour is unremarkable. Gallbladder/Biliary tree: No biliary dilatation. The gallbladder is surgically absent. Spleen: Normal. Adrenals: Normal. Pancreas: Normal. Kidneys/Bladder: Medullary sponge disease with calcifications along the medullary pyramids and collecting systems. Mild left renal hydronephrosis with a 6 mm obstructing calculus in the proximal ureter at the UPJ. There is stranding and edema in the surrounding fatty tissue. The bladder is decompressed with mild wall thickening. Uterus/Ovaries: The uterus is anteverted with fluid in endometrial canal. Bilateral ovarian follicular cystic changes present. Peritoneal Cavity/Retroperitoneum : No lymphadenopathy. Other: Small fatty ventral hernia at the midline. GI Tract: Appendix is normal at the midline anteriorly. The bowel gas pattern is nonspecific. Multiple loops of decompressed small bowel, many of which contain fluid. Fecal retention is present. Vasculature: Normal contour. IMPRESSION: 1. Mild left renal hydronephrosis due to an obstructing 6 mm proximal ureteral calculus at the UPJ. This appears similar to 02/19/2022. There is stranding in the surrounding fat concerning for infectious/inflammator y process. 2. Medullary sponge disease. 3. Mild bladder wall thickening, correlate for cystitis. 4. Cholecystectomy. Report Dictated on Electronically Signed By: Padmaja Amin Electronically Signed Date/Time: 12/26/2022 4:11 AM EDT [facility] Radiology Study observation (narrative) [facility] alth CT Abdomen WO contrastOrdere d By: Padmaja Amin on 12-26-2022 [facility] Work Phone: Urinalysis complete panel (U )Ordered By: Yadira Hawkins on 12-26-2022 Bacteria LM.HPF (Urine sed) [#/Area] Few Abnormal Negative /HPF [facility] Bilirubin Ql (U) Negative Negative mg/dL [facility] Clarity (U) Turbid Abnormal Clear [facility] Color (U) Light Yellow Lt. Yellow [facility] Epithelial cells.squamous LM.HPF (Urine sed) [#/Area] 6-[address] [facility] h Glucose Ql (U) Normal Normal (<70) mg/dL [facility] Hemoglobin Ql (U) >1.0 Abnormal Negative mg/dL [facility] Interpretation and review of laboratory results Abnormal [facility] Ketones (U) [Mass/Vol] Negative Negat gómez mg/dL [facility] Leukocyte esterase Test strip Ql (U) 75 Abnormal Negative Jonel/uL [facility] Nitrite Ql (U) Negative [facility] pH (U) 6.5 [pH] 5.0 - 8.0 pH [facility] Protein (U) [Mass/Vol] 20 mg/dL Abnormal Negative [facility] RBC LM.HPF (Urine sed) [#/Area] 51-100 Abnormal [facility] Specific gravity (U) [Rel density] 1.018 1.005 - 1.030 [facility] Urobilinogen (U) [Mass/Vol] Normal Normal (0-1) mg/dL [facility] Volume, Urine 12 mL [facility] WBC LM.HPF (Urine sed) [#/Area] 6-10 Abnormal [facility] MR Brain WO and W contrast I Von 07-27-2022 1. No cerebral edema, intracranial mass or abnormal enhancement. 2. No evidence of mesial temporal sclerosis, prado matter heterotopia or cortical dysplasia. 3. Extensive mucosal thickening with complete opacification of the left frontal, ethmoid and maxillary sinuses as well as moderate bilateral sphenoid and right maxillary sinus mucosal thickening. While this can be seen with sinusitis, recommend ENT consultation is obscured left-sided antrochoanal polyp is not excluded. Report Dictated on Electronically Signed By: Fernando Schuler Electronically Signed Date/Time: 07/27/2022 10:30 AM EST [employer] Patient Name: KENIA ORTIZ Exam Date/Time: 07/25/2022 16:51 Procedure: MR BRAIN W AND WO CONTRAST Ordering Provider: CRABTREE JAMES Reason For Exam: EXAM TYPE: MR BRAIN W AND WO CONTRAST EXAM DATE AND TIME: 07/25/2022 4:51 PM EST INDICATION: Tinnitus, vertigo, balance, headache COMPARISON: MRI brain on 07/09/2022 TECHNIQUE: MR imaging of the brain was obtained for seizure protocol before and after administration of intravenous contrast (10 ml of Gadavist). FINDINGS: Ventricles and sulci are normal in size and configuration for patient age. No extra axial collection. No cerebral edema, mass effect or evidence of intracranial mass. No significant brain parenchymal signal abnormality on FLAIR imaging. No acute infarction seen on the diffusion sequence. No evidence of hemorrhage on the gradient echo sequence. No abnormal enhancement. Cerebellar tonsils are in normal location. The intracranial vascular flow voids are normal in appearance. No evidence of mesial temporal sclerosis, prado matter heterotopia or cortical dysplasia. The intermediate T2 focus within the inferior left frontal convexity fossa extra-axial space as seen on prior MRI of 07/09/2022 corresponds to areas of volume averaging and are not clearly seen on today's study. Extensive mucosal thickening with complete opacification of the left frontal, ethmoid and maxillary sinuses as well as moderate bilateral sphenoid and right maxillary sinus mucosal thickening. Mastoids are well aerated bilaterally. Bone marrow signal is unremarkable. [facility] Fernando Schuler MD - 07/27/2022 [id number] Exam Date/Time: 07/25/2022 16:51 Procedure: MR BRAIN W AND WO CONTRAST Ordering Provider: CRABTREE JAMES Reason For Exam: EXAM TYPE: MR BRAIN W AND WO CONTRAST EXAM DATE AND TIME: 07/25/2022 4:51 PM EST INDICATION: Tinnitus, vertigo, balance, headache COMPARISON: MRI brain on 07/09/2022 TECHNIQUE: MR imaging of the brain was obtained for seizure protocol before and after administration of intravenous contrast (10 ml of Gadavist). FINDINGS: Ventricles and sulci are normal in size and configuration for patient age. No extra axial collection. No cerebral edema, mass effect or evidence of intracranial mass. No significant brain parenchymal signal abnormality on FLAIR imaging. No acute infarction seen on the diffusion sequence. No evidence of hemorrhage on the gradient echo sequence. No abnormal enhancement. Cerebellar tonsils are in normal location. The intracranial vascular flow voids are normal in appearance. No evidence of mesial temporal sclerosis, prado matter heterotopia or cortical dysplasia. The intermediate T2 focus within the inferior left frontal convexity fossa extra-axial space as seen on prior MRI of 07/09/2022 corresponds to areas of volume averaging and are not clearly seen on today's study. Extensive mucosal thickening with complete opacification of the left frontal, ethmoid and maxillary sinuses as well as moderate bilateral sphenoid and right maxillary sinus mucosal thickening. Mastoids are well aerated bilaterally. Bone marrow signal is unremarkable. IMPRESSION: 1. No cerebral edema, intracranial mass or abnormal enhancement. 2. No evidence of mesial temporal sclerosis, prado matter heterotopia or cortical dysplasia. 3. Extensive mucosal thickening with complete opacification of the left frontal, ethmoid and maxillary sinuses as well as moderate bilateral sphenoid and right maxillary sinus mucosal thickening. While this can be seen with sinusitis, recommend ENT consultation is obscured left-sided antrochoanal polyp is not excluded. Report Dictated on Electronically Signed By: Fernando Schuler Electronically Signed Date/Time: 07/27/2022 10:30 AM EST [facility] MR Brain WO and W contrast I VOrdered By: Fernando Schuler on 07-27-2022 [facility] Work Phone: MR Brain WO and W contrast I Von 07-25-2022 Radiology Study observation (narrative) [facility] Add On Lab Teston 07-09-2022 Add On Accepted [facility] Comment on above: Specimen available & acceptable for analysis. Test Performed by [facility], [address] , [address] LAB [facility] Add on test from HISon 07-09 Add on test from HIS Accepted Normal [facility] Comment on above: Result Comment: Spec imen available & acceptable for analysis. Performed By: #### A DDON #### [facility] [address] [place] [address] Basic Metabolic Panelon 06-17 Anion gap [Moles/Vol] 6 mmol/L Normal 3-13 [facility] Comment on above: Performed By: #### H CGUR, CUA2 #### [facility] [address] [place] [address] Calcium [Mass/Vol] 9.0 mg/dL Normal 8.4-10.4 [facility] Comment on above: Performed By: #### H CGUR, CUA2 #### [facility] [address] [place] [address] CO2 [Moles/Vol] 20 mmol/L Low 22-30 [facility] Comment on above: Performed By: #### H CGUR, CUA2 #### [facility] [address] [place] [address] Glucose [Mass/Vol] 98 mg/dL Normal 70-100 [facility] Comment on above: Performed By: #### H CGUR, CUA2 #### [facility] [address] [place] [address] Urea nitrogen [Mass/Vol] 9 mg/dL Normal 9-20 [facility] Comment on above: Performed By: #### H CGUR, CUA2 #### [facility] [address] [place] [address] Creatinine [Mass/Vol] 0.73 mg/dL Normal 0.52-1.25 [facility] Comment on above: Performed By: #### MEDHAT WONG #### [facility] [address] [place] [address] eGFR OTHER > 90.0 Normal >60 [facility] Comment on above: Result Comment: KDIG O guidelines provide the following GFR categories: Stage GFR(ml/min/1.73 m2) Terms G1 >=90 Normal or high G2 60-89 Mildly decreased* G3a 45-59 Mildly to moderately decreased G3b 30-44 Moderately to severely decreased G4 15-29 Severely decreased G5 <15 Kidney failure *Relative to young adult level. In the absence of evidence of kidney damage, neither GFR category G1 nor G2 fulfill the criteria for CKD. The CKD-EPI equation is validated in individuals 18 years of age and older. Currently the best equation for estimating glomerular filtration rate (GFR) from serum creatinine in children is the Bedside Smith equation. It is less accurate in patients with extremes of muscle mass, restriction of dietary protein, ingestion of creatine, extra-renal metabolism of creatinine, or treatment with medications that affect renal tubular creatinine secretion. Performed By: #### MEDHAT WONG #### [facility] [address] [place] [address] GFR/1.73 sq M.predicted among blacks MDRD (S/P/Bld) [Vol rate/Area] mL/min/{1.73_m2} Normal >60 [facility] Comment on above: Performed By: #### Yvan PEREIRA CUElie #### [facility] [address] [place] [address] Chloride [Moles/Vol] 110 mmol/L High 98-107 [facility] Comment on above: Performed By: #### Yvan PEREIRA CUElie #### [facility] [address] [place] [address] Potassium [Moles/Vol] 4.7 mmol/L Normal 3.5-5.1 [facility] Comment on above: Performed By: #### Yvan PEREIRA CUA2 #### [facility] [address] [place] [address] Sodium [Moles/Vol] 137 mmol/L Normal 135-145 [facility] Comment on above: Performed By: #### H MEDHAT PEREIRA #### [facility] [address] [place] [address] Anion gap [Moles/Vol] 6 mmol/L 3 - 13 mmol/L [facility] Calcium [Mass/Vol] 9.0 mg/dL 8.4 - 10. 4 mg/dL [facility] Chloride [Moles/Vol] 110 mmol/L High 98 - 10 7 mmol/L [facility] CO2 [Moles/Vol] 20 mmol/L Low 22 - 30 mmol/L [facility] Creatinine [Mass/Vol] 0.73 mg/dL 0.52 - 1.25 mg/dL [facility] eGFR mL/min 60 - P INF mL/min [facility] EGFR IF NonAfrican Czech mL/min 60 - PINF mL/min [facility] Comment on above: KDIGO guidelines pro vide the following GFR categories: Stage GFR(ml/min/1.73 m2) Terms G1 >=90 Normal or high G2 60-89 Mildly decreased* G3a 45-59 Mildly to moderately decreased G3b 30-44 Moderately to severely decreased G4 15-29 Severely decreased G5 <15 Kidney failure *Relative to young adult level. In the absence of evidence of kidney damage, neither GFR category G1 nor G2 fulfill the criteria for CKD. The CKD-EPI equation is validated in individuals 18 years of age and older. Currently the best equation for estimating glomerular filtration rate (GFR) from serum creatinine in children is the Bedside Smith equation. It is less accurate in patients with extremes of muscle mass, restriction of dietary protein, ingestion of creatine, extra-renal metabolism of creatinine, or treatment with medications that affect renal tubular creatinine secretion. Glucose [Mass/Vol] 98 mg/dL 70 - 100 mg/dL [facility] Interpretation and review of laboratory results Abnormal [facility] Potassium [Moles/Vol] 4.7 mmol/L 3.5 - 5.1 mmol/L [facility] Sodium [Moles/Vol] 137 mmol/L 135 - 145 mmol/L [facility] Urea nitrogen (BldV) [Mass/Vol] 9 mg/dL 9 - 20 mg/dL [facility] Test Performed by [facility], [address] , [address] LAB [facility] Beta Hydroxybutyrateon 07-09 Beta Hydroxybutyrate 1.57 mg/dL Normal 0.20-2.81 [facility] Comment on above: Performed By: #### H RANDALL CUA2 #### [facility] [address] [place] [address] Beta-Hydroxybutyrateon 07-09 Beta-Hydroxybutyrate 1.57 mg/dL 0.20 - 2.81 mg/dL [facility] Test Performed by [facility], [address] [place], [place] [id number] [place] [address] LAB [facility] Glucose,Bedsideon 07-09-2022 Glucose [Mass/Vol] 101 mg/dL High 70-100 [facility] Comment on above: Result Comment: Test performed by glucose meter. Results may be 10%-15% lower than serum/plasma values. (CLIA ID [id number]) Performed By: #### B GLU #### [facility] [address] [place] [address] Hemogramon 07-09-2022 Erythrocyte distribution width (RBC) [Ratio] 13.1 % Normal 11.5-14.5 [facility] Comment on above: Performed By: #### H RANDALL CUA2 #### [facility] [address] [place] [address] Hematocrit (Bld) [Volume fraction] 41.8 % Normal 35.0-47.0 [facility] Comment on above: Performed By: #### H RANDALL, CUA2 #### [facility] [address] [place] [address] Hemoglobin (Bld) [Mass/Vol] 14.7 g/dL Normal 11.7-16.0 [facility] Comment on above: Performed By: #### H RANDALL, CUA2 #### [facility] [address] [place] [address] MCH (RBC) [Entitic mass] 32.1 pg Normal 26.0-34.0 [facility] Comment on above: Performed By: #### H RANDALL, CUA2 #### [facility] [address] [place] [address] MCHC 35.2 % Normal 32.0-36.0 [facility] Comment on above: Performed By: #### Yvan PEREIRA CUA2 #### [facility] [address] [place] [address] MCV (RBC) [Entitic vol] 91.3 fL Normal 79.0-98.0 [facility] Comment on above: Performed By: #### Yvan PEREIRA, CUA2 #### [facility] [address] [place] [address] Platelet mean volume (Bld) [Entitic vol] 10.5 fL Normal 7.4-12.4 [facility] Comment on above: Result Comment: MPV is a calculated measurement using platelet volume ratio. Performed By: #### Yvan PEREIRA, CUA2 #### [facility] [address] [place] [address] Platelets (Bld) [#/Vol] 250 10*3/uL Normal 140-440 [facility] Comment on above: Performed By: #### Yvan PEREIRA, CUA2 #### [facility] [address] [place] [address] RBC (Bld) [#/Vol] 4.58 10*6/uL Normal 3.80-5.20 [facility] Comment on above: Performed By: #### Yvan PEREIRA, CUA2 #### [facility] [address] [place] [address] WBC (Bld) [#/Vol] 9.7 10*3/uL Normal 3.6-10.7 [facility] Comment on above: Performed By: #### Yvan PEREIRA, CUA2 #### [facility] [address] [place] [address] Hemogram (CBC)on 07-09-2022 Hematocrit (Bld) [Volume fraction] 41.8 % 35.0 - 47.0 % [facility] Hemoglobin (Bld) [Mass/Vol] 14.7 g/dL 11.7 - 16.0 g/dL [facility] MCH (RBC) [Entitic mass] 32.1 pg 26. 0 - 34.0 pg [facility] MCHC (RBC) [Mass/Vol] 35.2 % 32.0 - 36.0 % [facility] MCV (RBC) [Entitic vol] 91.3 fL 79.0 - 98.0 fL [facility] Platelet distribution width (Bld) [Ratio] 13.1 % 11.5 - 14.5 % [facility] Platelet mean volume (Bld) [Entitic vol] 10.5 fL 7.4 - 12.4 fL [facility] Comment on above: MPV is a calculated measurement using platelet volume ratio. Platelets (Bld) [#/Vol] 250 10*3/uL 140 - 440 10*3/uL [facility] RBC (Bld) [#/Vol] 4.58 10*6/uL 3.80 - 5.2 0 10*6/uL [facility] WBC (Bld) [#/Vol] 9.7 10*3/uL 3.6 - 10.7 10*3/uL [facility] Test Performed by [facility], [address] [place] [address]. [address] LAB [facility] MRI BRAIN W WO CONTRASTon Patient Name: KENIA ORTIZ [facility] ACCESSION EXAM DATE/TIME PROCEDURE ORDERING PROVIDER [phone] 07/09/2022 09:50 EDT MRI Brain w/ + w/o AC CRABTREE Contrast CPT code 10172 Reason For Exam (MRI Brain w/ + w/o Contrast) Syncope and collapse Report MRI BRAIN WITHOUT CONTRAST, EPILEPSY PROTOCOL CLINICAL INDICATION: Headache. Seizure activity. TECHNIQUE: Multi-planar multi-sequential MR imaging of the brain was performed without intravenous administration of Gadavist contrast. Examination was performed utilizing dedicated epilepsy protocol. Intravenous contrast was not administered and examination was prematurely terminated due to patient experiencing a seizure during the exam. COMPARISON: Correlation is made to CT head 03/14/2022 FINDINGS: Limitations: Abbreviated noncontrast examination. A few sequences are degraded by patient motion artifact. Ventricles and sulci are within normal limits with respect to size and configuration for patient's age. No restricted diffusion. No suspicious hypointense signal abnormality on susceptibility weighted sequences. Most conspicuous on axial sequence 6 image 13 there is an apparent 6 x 5 mm ovoid intermediate T2 focus involving the inferior left frontal cortex/extra-axial space. This is also faintly present on axial sequence 5 image 30. Elsewhere in the brain there is no significant parenchymal signal abnormality. No heterotopia or cortical dysplasia. Hippocampi are symmetric in size and signal. Flow voids of the major vessels at the skull base appear patent. Sella and parasellar structures appear within normal limits. Orbital contents appear within normal limits. Extensive opacification involving the left frontal sinus, left ethmoid air cells, and left maxillary sinus. Mastoid air cells appear well aerated. Calvarium and skull base appear within normal limits. IMPRESSION: 1. Abbreviated noncontrast examination as patient experienced seizure during the exam. A few sequences are also degraded by patient motion artifact. 2. Apparent 6 x 5 mm ovoid intermediate T2 focus involving the inferior left frontal cortex/extra-axial space, also faintly seen on FLAIR sequences, favored to be artifactual. This can be reassessed on follow-up imaging when patient is better able to tolerate. 3. Otherwise no diffusion restriction or significant parenchymal signal abnormality. 4. Paranasal sinus disease with complete opacification involving left frontal sinus, left ethmoid air cells, and left maxillary sinus. Magnetic Resonance Imaging Report Report Dictated on --- Final --- Dictating Physician: MD MEJIAS VLADIMIR Signed Date and Time: 07/09/2022 2:03 pm Signed by: MD MEJIAS VLADIMIR Transcribed Date and Time: 07/09/2022 2:04 [facility] [place] RAD Result, Unknown Provider - 07/09/2022 [id number] Imaging ACCESSION EXAM DATE/TIME PROCEDURE ORDERING PROVIDER [id number] 07/09/2022 09:50 EDT MRI Brain w/ + w/o AC CRABTREE Contrast CPT code 98030 Reason For Exam (MRI Brain w/ + w/o Contrast) Syncope and collapse Report MRI BRAIN WITHOUT CONTRAST, EPILEPSY PROTOCOL CLINICAL INDICATION: Headache. Seizure activity. TECHNIQUE: Multi-planar multi-sequential MR imaging of the brain was performed without intravenous administration of Gadavist contrast. Examination was performed utilizing dedicated epilepsy protocol. Intravenous contrast was not administered and examination was prematurely terminated due to patient experiencing a seizure during the exam. COMPARISON: Correlation is made to CT head 03/14/2022 FINDINGS: Limitations: Abbreviated noncontrast examination. A few sequences are degraded by patient motion artifact. Ventricles and sulci are within normal limits with respect to size and configuration for patient's age. No restricted diffusion. No suspicious hypointense signal abnormality on susceptibility weighted sequences. Most conspicuous on axial sequence 6 image 13 there is an apparent 6 x 5 mm ovoid intermediate T2 focus involving the inferior left frontal cortex/extra-axial space. This is also faintly present on axial sequence 5 image 30. Elsewhere in the brain there is no significant parenchymal signal abnormality. No heterotopia or cortical dysplasia. Hippocampi are symmetric in size and signal. Flow voids of the major vessels at the skull base appear patent. Sella and parasellar structures appear within normal limits. Orbital contents appear within normal limits. Extensive opacification involving the left frontal sinus, left ethmoid air cells, and left maxillary sinus. Mastoid air cells appear well aerated. Calvarium and skull base appear within normal limits. IMPRESSION: 1. Abbreviated noncontrast examination as patient experienced seizure during the exam. A few sequences are also degraded by patient motion artifact. 2. Apparent 6 x 5 mm ovoid intermediate T2 focus involving the inferior left frontal cortex/extra-axial space, also faintly seen on FLAIR sequences, favored to be artifactual. This can be reassessed on follow-up imaging when patient is better able to tolerate. 3. Otherwise no diffusion restriction or significant parenchymal signal abnormality. 4. Paranasal sinus disease with complete opacification involving left frontal sinus, left ethmoid air cells, and left maxillary sinus. Magnetic Resonance Imaging Report Report Dictated on --- Final --- Dictating Physician: MD MEJIAS VLADIMIR Signed Date and Time: 07/09/2022 2:03 pm Signed by: MD MEJIAS VLADIMIR Transcribed Date and Time: 07/09/2022 2:04 [facility] Work Phone: Radiology Study observation (narrative) [facility] Work Phone: MRI BRAIN W WO CONTRASTOrder ed By: Unknown Result on 07-09-2022 [facility] MRI Brain w/ + w/o Contrasto n 07-09-2022 MRI Brain w/ + w/o Contrast Patient Name: KENIA ORTIZ Magnetic Resonance Imaging ACCESSION EXAM DATE/TIME PROCEDURE ORDERING PROVIDER [id number] 07/09/2022 09:50 EDT MRI Brain w/ + w/o AC CRABTREE Contrast CPT code 06159 Reason For Exam (MRI Brain w/ + w/o Contrast) Syncope and collapse Report MRI BRAIN WITHOUT CONTRAST, EPILEPSY PROTOCOL CLINICAL INDICATION: Headache. Seizure activity. TECHNIQUE: Multi-planar multi-sequential MR imaging of the brain was performed without intravenous administration of Gadavist contrast. Examination was performed utilizing dedicated epilepsy protocol. Intravenous contrast was not administered and examination was prematurely terminated due to patient experiencing a seizure during the exam. COMPARISON: Correlation is made to CT head 03/14/2022 FINDINGS: Limitations: Abbreviated noncontrast examination. A few sequences are degraded by patient motion artifact. Ventricles and sulci are within normal limits with respect to size and configuration for patient's age. No restricted diffusion. No suspicious hypointense signal abnormality on susceptibility weighted sequences. Most conspicuous on axial sequence 6 image 13 there is an apparent 6 x 5 mm ovoid intermediate T2 focus involving the inferior left frontal cortex/extra-axial space. This is also faintly present on axial sequence 5 image 30. Elsewhere in the brain there is no significant parenchymal signal abnormality. No heterotopia or cortical dysplasia. Hippocampi are symmetric in size and signal. Flow voids of the major vessels at the skull base appear patent. Sella and parasellar structures appear within normal limits. Orbital contents appear within normal limits. Extensive opacification involving the left frontal sinus, left ethmoid air cells, and left maxillary sinus. Mastoid air cells appear well aerated. Calvarium and skull base appear within normal limits. IMPRESSION: 1. Abbreviated noncontrast examination as patient experienced seizure during the exam. A few sequences are also degraded by patient motion artifact. 2. Apparent 6 x 5 mm ovoid intermediate T2 focus involving the inferior left frontal cortex/extra-axial space, also faintly seen on FLAIR sequences, favored to be artifactual. This can be reassessed on follow-up imaging when patient is better able to tolerate. 3. Otherwise no diffusion restriction or significant parenchymal signal abnormality. 4. Paranasal sinus disease with complete opacification involving left frontal sinus, left ethmoid air cells, and left maxillary sinus. Magnetic Resonance Imaging Report Report Dictated on Final Dictating Physician: MD MEJIAS VLADIMIR Signed Date and Time: 07/09/2022 2:03 pm Signed by: MD MEJIAS VLADIMIR Transcribed Date and Time: 07/09/2022 2:04 Normal [facility] POCT GlucoseOrdered By: Laurel Calvert on 07-09-2022 Glucose [Mass/Vol] 101 mg/dL High 70 - 100 mg/dL [facility] Comment on above: Test performed by gl ucose meter. Results may be 10%-15% lower than serum/plasma values. (CLIA ID [id number]) Interpretation and review of laboratory results Abnormal [facility] POCT Glucoseon 07-09-2022 Test Performed by [facility], [address] , [address] LAB CBC with Auto Differentialon 06-12-2022 Absolute Baso # 0.1 10*3/uL 0 - 0.2 10*3/uL [facility] Absolute Neut # 8.2 10*3/uL High 1.8 - 7 10*3/uL [facility] Basophils/100 WBC (Bld) 0.5 % 0 - 2 % [facility] Eosinophils (Bld) [#/Vol] 0.4 10*3/uL 0 - 0.5 10*3/uL [facility] Eosinophils/100 WBC (Bld) 3.5 % 1 - 6 % [facility] Granulocytes/100 WBC (Bld) 72.9 % 40 - 80 % [facility] Hematocrit (Bld) [Volume fraction] 41.2 % 35 - 47 % [facility] Hemoglobin (Bld) [Mass/Vol] 14.3 g/dL 11.7 - 16 g/dL [facility] Interpretation and review of laboratory results Abnormal [facility] Lymphocytes (Bld) [#/Vol] 2.0 10*3/uL 1 - 4.3 10*3/uL [facility] Lymphocytes/100 WBC (Bld) 18.0 % Low 20 - 40 % [facility] MCH (RBC) [Entitic mass] 31.6 pg 26 - 34 pg [facility] MCHC (RBC) [Mass/Vol] 34.8 % 32 - 36 % [facility] MCV (RBC) [Entitic vol] 91.0 fL 79 - 98 fL [facility] Monocytes (Bld) [#/Vol] 0.6 10*3/uL 0 - 0.8 10*3/uL [facility] Monocytes/100 WBC (Bld) 5.1 % 2 - 10 % [facility] Platelet distribution width (Bld) [Ratio] 12.9 % 11.5 - 14.5 % [facility] Platelet mean volume (Bld) [Entitic vol] 7.4 fL 7.4 - 12.4 fL [facility] Comment on above: MPV is a calculated measurement using platelet volume ratio. Platelets (Bld) [#/Vol] 267 10*3/uL 140 - 440 10*3/uL [facility] RBC (Bld) [#/Vol] 4.52 10*6/uL 3.8 - 5.2 10*6/uL [facility] WBC (Bld) [#/Vol] 11.3 10*3/uL High 3.6 - 10.7 10*3/uL [facility] Test Performed by [facility], [address] [place], [place] [address] [facility] Comp Metabolic Panelon 06-12 ALP [Catalytic activity/Vol] 65 U/L Normal 38-126 [facility] Comment on above: Performed By: #### C UA2 #### [facility] [address] [place] [address] ALT [Catalytic activity/Vol] 26 U/L Normal 0-34 [facility] Comment on above: Result Comment: The ALT test is performed by an updated assay method. Please note that the reference intervals have been changed and are now sex specific. Performed By: #### C UA2 #### [facility] [address] [place] [address] Calcium [Mass/Vol] 9.2 mg/dL Normal 8.4-10.4 [facility] Comment on above: Performed By: #### C UA2 #### [facility] [address] [place] [address] Glucose [Mass/Vol] 143 mg/dL High 70-100 [facility] Comment on above: Performed By: #### C UA2 #### [facility] [address] [place] [address] Protein [Mass/Vol] 7.7 g/dL Normal 6.3-8.2 [facility] Comment on above: Performed By: #### C UA2 #### [facility] [address] [place] [address] Urea nitrogen [Mass/Vol] 7 mg/dL Low 9-20 [facility] Comment on above: Performed By: #### C UA2 #### [facility] [address] [place] [address] Anion gap [Moles/Vol] 9 mmol/L Normal 3-13 [facility] Comment on above: Performed By: #### C UA2 #### [facility] [address] [place] [address] AST [Catalytic activity/Vol] 31 U/L Normal 15-46 [facility] Comment on above: Performed By: #### C UA2 #### [facility] [address] [place] [address] Bilirubin [Mass/Vol] 0.6 mg/dL Normal 0.2-1.3 [facility] Comment on above: Performed By: #### C UA2 #### [facility] [address] [place] [address] CO2 [Moles/Vol] 21 mmol/L Low 22-30 [facility] Comment on above: Performed By: #### C UA2 #### [facility] [address] [place] [address] Creatinine [Mass/Vol] 0.85 mg/dL Normal 0.52-1.25 [facility] Comment on above: Performed By: #### C UA2 #### [facility] [address] [place] [address] eGFR OTHER > 90.0 Normal >60 [facility] Comment on above: Result Comment: KDIG O guidelines provide the following GFR categories: Stage GFR(ml/min/1.73 m2) Terms G1 >=90 Normal or high G2 60-89 Mildly decreased* G3a 45-59 Mildly to moderately decreased G3b 30-44 Moderately to severely decreased G4 15-29 Severely decreased G5 <15 Kidney failure *Relative to young adult level. In the absence of evidence of kidney damage, neither GFR category G1 nor G2 fulfill the criteria for CKD. The CKD-EPI equation is validated in individuals 18 years of age and older. Currently the best equation for estimating glomerular filtration rate (GFR) from serum creatinine in children is the Bedside Smith equation. It is less accurate in patients with extremes of muscle mass, restriction of dietary protein, ingestion of creatine, extra-renal metabolism of creatinine, or treatment with medications that affect renal tubular creatinine secretion. Performed By: #### C UA2 #### [facility] [address] [place] [address] GFR/1.73 sq M.predicted among blacks MDRD (S/P/Bld) [Vol rate/Area] mL/min/{1.73_m2} Normal >60 [facility] Comment on above: Performed By: #### C UA2 #### [facility] [address] [place] [address] Chloride [Moles/Vol] 107 mmol/L Normal 98-107 [facility] Comment on above: Performed By: #### C UA2 #### [facility] [address] [place] [address] Potassium [Moles/Vol] 4.0 mmol/L Normal 3.5-5.1 [facility] Comment on above: Performed By: #### C UA2 #### [facility] [address] [place] [address] Sodium [Moles/Vol] 137 mmol/L Normal 135-145 [facility] Comment on above: Performed By: #### C UA2 #### [facility] [address] [place] [address] Albumin [Mass/Vol] 4.4 g/dL Normal 3.5-5.0 [facility] Comment on above: Performed By: #### C UA2 #### [facility] [address] [place] [address] Complete Urinalysison 2021 Appearance (U) Turbid Abnormal Clear [facility] Comment on above: Result Comment: . Performed By: #### C UA2 #### [facility] [address] [place] [address] Bacteria Moderate Abnormal Negative [facility] Comment on above: Result Comment: . Performed By: #### C UA2 #### [facility] [address] [place] [address] Bilirubin,Urine Negative Normal Negative [facility] Comment on above: Result Comment: . Performed By: #### C UA2 #### [facility] [address] [place] [address] Color (U) Yellow Normal Lt. Yellow [facility] Comment on above: Result Comment: . Performed By: #### C UA2 #### [facility] [address] [place] [address] Glucose Ql (U) Normal Normal Normal (<70) [facility] Comment on above: Result Comment: . Performed By: #### C UA2 #### [facility] [address] [place] [address] Ketone,Urine Trace Abnormal Negative [facility] Comment on above: Result Comment: . Performed By: #### C UA2 #### [facility] [address] [place] [address] Leukocytes,Urine 500 Jonel/uL Abnormal Negative [facility] Comment on above: Result Comment: . Performed By: #### C UA2 #### [facility] [address] [place] [address] Mucous Threads Moderate Abnormal Negative [facility] Comment on above: Result Comment: . Performed By: #### C UA2 #### [facility] [address] [place] [address] Nitrites,Urine Negative Normal Negative [facility] Comment on above: Result Comment: . Performed By: #### C UA2 #### [facility] [address] [place] [address] Non-Squamous Epithelial < 1 Abnormal Negative [facility] Comment on above: Result Comment: . Performed By: #### C UA2 #### [facility] [address] [place] [address] Occult Blood,Urine 0.03 mg/dL Abnormal Negative [facility] Comment on above: Result Comment: . Performed By: #### C UA2 #### [facility] [address] [place] [address] pH,Urine 5.5 Normal 5.0-8.0 [facility] Comment on above: Result Comment: . Performed By: #### C UA2 #### [facility] [address] [place] [address] Protein (U) [Mass/Vol] 20 mg/dL Abnormal Negative [facility] Comment on above: Result Comment: . Performed By: #### C UA2 #### [facility] [address] [place] [address] RBC, Urine 3 - 5 Abnormal 0-2 [facility] Comment on above: Result Comment: . Performed By: #### C UA2 #### [facility] [address] [place] [address] Specific Mccarley,Urine 1.024 Normal 1.005 - 1.030 [facility] Comment on above: Result Comment: . Performed By: #### C UA2 #### [facility] [address] [place] [address] Squamous Epithelial 3 - 5 Normal 3-5 [facility] Comment on above: Result Comment: . Performed By: #### C UA2 #### [facility] [address] [place] [address] Urobilinogen,Urine Normal Normal Normal (0-1) [facility] Comment on above: Result Comment: . Performed By: #### C UA2 #### [facility] [address] [place] [address] WBC, Urine 11 - 25 Abnormal 0-5 [facility] Comment on above: Result Comment: . Performed By: #### C UA2 #### [facility] [address] [place] [address] Comprehensive Metabolic Pane santos 06-12-2022 Albumin [Mass/Vol] 4.4 g/dL 3.5 - 5 g/dL [facility] ALP (Bld) [Catalytic activity/Vol] 65 U/L 38 - 126 U/L [facility] ALT [Catalytic activity/Vol] 26 U/L 0 - 34 U/L [facility] Comment on above: The ALT test is perf ormed by an updated assay method. Please note that the reference intervals have been changed and are now sex specific. Anion gap [Moles/Vol] 9 mmol/L 3 - 13 mmol/L [facility] AST [Catalytic activity/Vol] 31 U/L 15 - 46 U/L [facility] Bilirubin [Mass/Vol] 0.6 mg/dL 0.2 - 1 .3 mg/dL [facility] Calcium [Mass/Vol] 9.2 mg/dL 8.4 - 10. 4 mg/dL [facility] Chloride [Moles/Vol] 107 mmol/L 98 - 10 7 mmol/L [facility] CO2 [Moles/Vol] 21 mmol/L Low 22 - 30 mmol/L [facility] Creatinine [Mass/Vol] 0.85 mg/dL 0.52 - 1.25 mg/dL [facility] eGFR mL/min 60 - P INF mL/min [facility] EGFR IF NonAfrican Czech mL/min 60 - PINF mL/min [facility] Comment on above: KDIGO guidelines pro vide the following GFR categories: Stage GFR(ml/min/1.73 m2) Terms G1 >=90 Normal or high G2 60-89 Mildly decreased* G3a 45-59 Mildly to moderately decreased G3b 30-44 Moderately to severely decreased G4 15-29 Severely decreased G5 <15 Kidney failure *Relative to young adult level. In the absence of evidence of kidney damage, neither GFR category G1 nor G2 fulfill the criteria for CKD. The CKD-EPI equation is validated in individuals 18 years of age and older. Currently the best equation for estimating glomerular filtration rate (GFR) from serum creatinine in children is the Bedside Smith equation. It is less accurate in patients with extremes of muscle mass, restriction of dietary protein, ingestion of creatine, extra-renal metabolism of creatinine, or treatment with medications that affect renal tubular creatinine secretion. Free PSA/Total PSA [Mass fraction] 7.7 g/dL 6.3 - 8.2 g/dL [facility] Glucose [Mass/Vol] 143 mg/dL High 70 - 100 mg/dL [facility] Interpretation and review of laboratory results Abnormal [facility] Potassium [Moles/Vol] 4.0 mmol/L 3.5 - 5.1 mmol/L [facility] Sodium [Moles/Vol] 137 mmol/L 135 - 145 mmol/L [facility] Urea nitrogen (BldV) [Mass/Vol] 7 mg/dL Low 9 - 20 mg/dL [facility] Test Performed by [facility], [address] [place], [place] [address] [facility] Drugs of Abuseon 06-12-2022 Cocaine, Ur Negative Normal [facility] Comment on above: Performed By: #### Yvan PEREIRA CUA2 #### [facility] [address] [place] [address] Phencyclidine (PCP), Ur Negative Normal [facility] Comment on above: Result Comment: The expected value for all of the drugs listed above is Negative. The following drugs or drug groups have been screened for by Immunoassay at the following thresholds: Amphetamine class (1000 ng/mL), Barbiturates (200 ng/mL), Benzodiazepines (200 ng/mL), Cocaine (300 ng/mL), Methadone (300 ng/mL), Opiates (300 ng/mL), Oxycodone (100 ng/mL), and PCP (25 ng/mL). NOTE: These results are for medical treatment only. Analysis performed using non-forensic procedures. POSITIVE results are NOT confirmed by a more specific alternative method unless requested. If confirmation is needed, request confirmation under separate order. Performed By: #### Yvan PEREIRA CUA2 #### [facility] [address] [place] [address] Opiates, Ur Negative Normal [facility] Comment on above: Performed By: #### Yvan PEREIRA CUA2 #### [facility] [address] [place] [address] Methadone, Ur Negative Normal [facility] Comment on above: Performed By: #### Yvan PEREIRA, CUA2 #### [facility] [address] [place] [address] Benzodiazepines, Ur Negative Normal [facility] Comment on above: Performed By: #### Yvan PEREIRA, CUA2 #### [facility] [address] [place] [address] Barbiturates, Ur Negative Normal [facility] Comment on above: Performed By: #### Yvan PEREIRA, CUA2 #### [facility] [address] [place] [address] Amphetamines, Ur Positive Normal [facility] Comment on above: Performed By: #### Yvan PEREIRA, CUA2 #### [facility] [address] [place] [address] Oxycodone/Oxymorphine,Ur Negative Normal [facility] Comment on above: Performed By: #### H MEDHAT PEREIRA #### [facility] [address] [place] [address] ED Provider Noteon ED Provider Note Emergency Department Encounter [facility] ED Patient: Kenia Ortiz : 1990 Date of Evaluation: 06/12/2022 ED Supervising Physician: Juanita Hazel DO I independently examined and evaluated Kenia Ortiz. I personally saw and performed a substantive portion of the visit including all aspects of the medical decision making. In brief, ED Course as of 06/12/222047Jun 12, [id number] 32-year-old female presents emergency department today after a seizure-like episode. She had a similar episode a few weeks ago while having a tattoo done. She was worked up at [facility] had a head CT and labs done at that time which were unremarkable. No evidence of tongue biting today or urinating on herself. She had some tonic-clonic like movements which were witnessed by significant other. She has been not taking her Neurontin. Had not followed up with neurology referral. Has no appointment scheduled. On exam patient is somnolent but answering all my questions appropriately with head nodding or shaking. Heart regular rhythm and lungs good auscultation. Labs here showing mild leukocytosis to 11.3, CMP is within normal limits. She is denying any alcohol or benzodiazepine use. Not concerning for withdrawal seizure. If work-up here is negative patient returns to baseline feel that she would be appropriate for outpatient follow-up with neurology. [BM] 194 Urinalysis remarkable for UTI. UDS positive for amphetamines. [BM] 194 Will give dose of antibiotics here and reevaluate. [BM] ED Course User Index [BM] Juanita Hazel DO On reevaluation patient is totally back to baseline and talking with her . Will discharge home with antibiotics for UTI and give neurology follow-up. All diagnostic, treatment, and disposition decisions were made by myself in conjunction with the [facility]. For all further details of the patient's emergency department visit, please see their documentation. (Please note that portions of this note may have been completed with a voice recognition program. Efforts were made to edit the dictations but occasionally words are mis-transcribed.) Juanita Hazel DO [employer] Juanita Hazel DO 06/12/222047 [facility] ED Provider Note [place] [place] [facility] eMERGENCY dEPARTMENT eNCOUnter Pt Name: Kenia Ortiz Birthdate 1990 Date of evaluation: 06/12/2022 Provider: Jojo Llanos, DEVELOPMENT ADVISOR - ASSIGNMENT CLERK This patient was seen in conjunction with Dr. Hazel CHIEF COMPLAINT Chief Complaint Patient presents with Seizures Witnessed by , occurred earlier today. Hx, last known seizure approx 3-4 weeks ago while getting tattoo HISTORY OF PRESENT ILLNESS (Location/Symptom, Timing/Onset,Context/S etting, Quality, Duration, Modifying Factors, Severity) Note limiting factors. HPI Kenia Ortiz is a 32 y.o. female who presents to the emergency department with seizure-like activity. This was witnessed by the earlier today with generalized tonic-clonic shaking patient had an episode 4 weeks ago while getting a tattoo, she was seen at [facility] at that time referred to neurology still has not followed up with neurology supposed to be on gabapentin she is not taking the gabapentin. Patient seizure activity stopped at the [facility] visit with a sternal rub, today she is somnolent on arrival but there is no tongue biting no lip biting, no urinary incontinence. On presentation she was unresponsive however blinked and flinched with visual confrontation. Nursing Notes were reviewed. REVIEW OF SYSTEMS (2+ for4; 10+ for level 5) Review of Systems Constitutional: Negative for activity change, appetite change, chills and fever. HENT: Negative for congestion, ear discharge, ear pain, hearing loss, postnasal drip, rhinorrhea and sore throat. Eyes: Negative for discharge and redness. Respiratory: Negative for chest tightness, shortness of breath and wheezing. Cardiovascular: Negative for chest pain. Gastrointestinal: Negative for abdominal pain, diarrhea, nausea and vomiting. Genitourinary: Negative for dysuria. Musculoskeletal: Negative for arthralgias and myalgias. Skin: Negative for color change. Neurological: Negative for dizziness, tremors, syncope, weakness, light-headedness and headaches. Seizure-like activity Hematological: Negative for adenopathy. Psychiatric/Behavioral : Negative for agitation and confusion. All other systems reviewed and are negative. PAST MEDICAL HISTORY Past Medical History: Diagnosis Date Herpes History of low potassium Hypertension with both SURGICALHISTORY Past Surgical History: Procedure Laterality Date GALLBLADDER SURGERY 2007 HERNIA REPAIR 2017 CURRENT MEDICATIONS Previous Medications ACYCLOVIR (ZOVIRAX) 400 MG TABLET Take 400 mg by mouth 2 times daily ALBUTEROL SULFATE HFA 108 (90 BASE) MCG/ACT INHALER Inhale 2 puffs into the lungs every 6 hours as needed BUPROPION (WELLBUTRIN SR) 150 MG EXTENDED RELEASE TABLET take 1 tablet twice a day for SMOKING CESSATION DIPHENHYDRAMINE-APAP (PERCOGESIC) 12.5-325 MG TABS Take 1 tablet by mouth 4 times daily as needed (pain) ESCITALOPRAM (LEXAPRO) 20 MG TABLET Take 20 mg by mouth daily GABAPENTIN (NEURONTIN) 100 MG CAPSULE Take 100 mg by mouth 2 times daily. GABAPENTIN (NEURONTIN) 300 MG CAPSULE Take 300 mg by mouth nightly. HYDROCHLOROTHIAZIDE (HYDRODIURIL) 25 MG TABLET Take 25 mg by mouth daily KETOROLAC (TORADOL) 10 MG TABLET Take 1 tablet by mouth every 6 hours as needed for Pain MELOXICAM (MOBIC) 15 MG TABLET Take 1 tablet by mouth daily ONDANSETRON (ZOFRAN) 4 MG TABLET Take 1-2 tablets by mouth 3 times daily as needed for Nausea or Vomiting ONDANSETRON (ZOFRAN) 4 MG TABLET Take 1-2 tablets by mouth 4 times daily as needed for Nausea or Vomiting MV-MIN-FE FUM-FA-DHA ( 1) 30-0.975-200 MG CAPS Take 200 mg by mouth daily TAMSULOSIN (FLOMAX) 0.4 MG CAPSULE Take 1 capsule by mouth daily Other and Raspberry FAMILY HISTORY Family History Problem Relation Age of Onset Cancer Father No Known Problems Mother No Known Problems Brother No Known Problems Sister SOCIAL HISTORY Social History Socioeconomic History Marital status: Single Tobacco Use Smoking status: Every Day Smokeless tobacco: Never Tobacco comments: 3 cigs a day Vaping Use Vaping Use: Former Substances: Nicotine Substance and Sexual Activity Alcohol use: Not Currently Drug use: No Sexual activity: Yes Partners: Male SCREENINGS Barbra Coma Scale Eye Opening: To speech Best Verbal Response: None Best Motor Response: Obeys commands Barbra Coma Scale Score: 10 PHYSICAL EXAM (5+ for level 4, 8+ for level 5) ED Triage Vitals [06/12/22 1825] BP Temp Temp Source Heart Rate Resp SpO2 Height Weight (!) 170/124 98.1 ?F (36.7 ?C) Oral (!) 103 18 98 % 5' 5 (1.651 m) -- Physical Exam Vitals and nursing note reviewed. Constitutional: General: She is not in acute distress. Appearance: Normal appearance. She is obese. She is not ill-appearing or toxic-appearing. HENT: Head: Normocephalic and atraumatic. Right Ear: External ear normal. Left Ear: Exter (more content not included)... 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1990 Requested By: JOJO LLANOS Order Number: [id number] Reading MD: Juanita Hazel Measurements Intervals [address] Rate: 89 P: 47 UT: 152 QRS: 16 QRSD: 92 T: 11 QT: 360 QTc: 439 Interpretive Statements SINUS RHYTHM rate 89 Compared to ECG 03/14/2022 19:19:57 T-wave abnormality no longer present Electronically Signed On 06-12-2022 18:57:28 EDT by Juanita Hazel [facility] Juanita Hazel D O - 06/12/2022 [facility] Test Date: 2022-06-12 Pat Name: [facility] Department: 2AED Room: 444 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1990 Requested By: JOJO LLANOS Order Number: [id number] Reading MD: Juanita Hazel Measurements Intervals [address] Rate: 89 P: 47 UT: 152 QRS: 16 QRSD: 92 T: 11 QT: 360 QTc: 439 Interpretive Statements SINUS RHYTHM rate 89 Compared to ECG 03/14/2022 19:19:57 T-wave abnormality no longer present Electronically Signed On 06-12-2022 18:57:28 EDT by Juanita Hazel [facility] Work Phone: EKG 12 Lead - Chest PainOrde red By: Juanita Hazel on 06-12-2022 [facility] Work Phone: HCG Qualitative, Serumon hCG Qual Negative [facility] Comment on above: Reference Range: NEG ATIVE Effective 11/27/2019, the reference interval for the qualitative test has been updated. This test detects hCG at concentrations of 10 mIU/L or greater in serum. Test Performed by [facility], [address] [place], [place] [address] [facility] Hemogram w/ Autodiffon 06-12 Abs Baso Cnt 0.1 10*3/uL Normal 0.0-0.2 [facility] Comment on above: Performed By: #### C UA2 #### [facility] [address] [place] [address] Abs Neutrophile Cnt 8.2 10*3/uL High 1.8-7.0 [facility] Comment on above: Performed By: #### C UA2 #### [facility] [address] [place] [address] Basophils/100 WBC (Bld) 0.5 % Normal 0.0-2.0 [facility] Comment on above: Performed By: #### C UA2 #### [facility] [address] [place] [address] Eosinophils (Bld) [#/Vol] 0.4 10*3/uL Normal 0.0-0.5 [facility] Comment on above: Performed By: #### C UA2 #### [facility] [address] [place] [address] Eosinophils/100 WBC (Bld) 3.5 % Normal 1.0-6.0 [facility] Comment on above: Performed By: #### C UA2 #### [facility] [address] [place] [address] Erythrocyte distribution width (RBC) [Ratio] 12.9 % Normal 11.5-14.5 [facility] Comment on above: Performed By: #### C UA2 #### [facility] [address] [place] [address] Granulocytes/100 WBC (Bld) 72.9 % Normal 40.0-80.0 [facility] Comment on above: Performed By: #### C UA2 #### [facility] [address] [place] [address] Hematocrit (Bld) [Volume fraction] 41.2 % Normal 35.0-47.0 [facility] Comment on above: Performed By: #### C UA2 #### [facility] [address] [place] [address] Hemoglobin (Bld) [Mass/Vol] 14.3 g/dL Normal 11.7-16.0 [facility] Comment on above: Performed By: #### C UA2 #### [facility] [address] [place] [address] Lymphocytes (Bld) [#/Vol] 2.0 10*3/uL Normal 1.0-4.3 [facility] Comment on above: Performed By: #### C UA2 #### [facility] [address] [place] [address] Lymphocytes/100 WBC (Bld) 18.0 % Low 20.0-40.0 [facility] Comment on above: Performed By: #### C UA2 #### [facility] [address] [place] [address] MCH (RBC) [Entitic mass] 31.6 pg Normal 26.0-34.0 [facility] Comment on above: Performed By: #### C UA2 #### [facility] [address] [place] [address] MCHC 34.8 % Normal 32.0-36.0 [facility] Comment on above: Performed By: #### C UA2 #### [facility] [address] [place] [address] MCV (RBC) [Entitic vol] 91.0 fL Normal 79.0-98.0 [facility] Comment on above: Performed By: #### C UA2 #### [facility] [address] [place] [address] Monocytes (Bld) [#/Vol] 0.6 10*3/uL Normal 0.0-0.8 [facility] Comment on above: Performed By: #### C UA2 #### [facility] [address] [place] [address] Monocytes/100 WBC (Bld) 5.1 % Normal 2.0-10.0 [facility] Comment on above: Performed By: #### C UA2 #### [facility] [address] [place] [address] Platelet mean volume (Bld) [Entitic vol] 7.4 fL Normal 7.4-12.4 [facility] Comment on above: Result Comment: MPV is a calculated measurement using platelet volume ratio. Performed By: #### C UA2 #### [place] [address] [place] [address] Platelets (Bld) [#/Vol] 267 10*3/uL Normal 140-440 [facility] Comment on above: Performed By: #### C UA2 #### [facility] [address] [place] [address] RBC (Bld) [#/Vol] 4.52 10*6/uL Normal 3.80-5.20 [facility] Comment on above: Performed By: #### C UA2 #### [facility] [address] [place] [address] WBC (Bld) [#/Vol] 11.3 10*3/uL High 3.6-10.7 [facility] Comment on above: Performed By: #### C UA2 #### [facility] [address] [place] [address] Lactic Acidon 06-12-2022 Lactate [Moles/Vol] 2.1 mmol/L Critically high 0.7-2.0 [facility] Comment on above: Performed By: #### C UA2 #### [facility] [address] [place] [address] Interpretation and review of laboratory results Abnormal [facility] Lactate [Moles/Vol] 2.1 mmol/L Critically high 0.7 - 2 mmol/L [facility] Test Performed by [facility], [address] [place], [place] [address] [facility] Troponin Ion 06-12-2022 Troponin I.cardiac [Mass/Vol] ng/mL Normal 0.000-0.034 [facility] Comment on above: Result Comment: . Performed By: #### C UA2 #### [facility] [address] [place] [address] Troponin x1on 06-12-2022 Troponin I.cardiac [Mass/Vol] ng/mL 0 - 0.034 ng/mL [facility] Comment on above: . Test Performed by [facility], [address] [place], [place] [address] [facility] Urinalysison 06-12-2022 Appearance (U) Turbid Abnormal Clear NA [facility] Comment on above: . Bacteria, UA Moderate Abnormal Negative /[HPF] [facility] Comment on above: . Bilirubin Urine Negative Negative mg/dL [facility] Comment on above: . Color (U) Yellow Lt. Yellow NA [facility] Comment on above: . Glucose, Ur Normal Normal (<70) mg/dL [facility] Comment on above: . Interpretation and review of laboratory results Abnormal [facility] Ketones Ql (U) Trace Abnormal Negative mg/dL [facility] Comment on above: . LEUKOCYTES, UA 500 Abnormal Negative Jonel/uL [facility] Comment on above: . Mucous Threads Moderate Abnormal Negative /[LPF] [facility] Comment on above: . Nitrite, Urine Negative Negative NA [facility] Comment on above: . Non-Squamous Epithelial /[HPF] Abnormal Nega tive /[HPF] [facility] Comment on above: . Occult Blood,Urine 0.03 mg/dL Abnormal Negative [facility] Comment on above: . pH (U) 5.5 [pH] [facility] Comment on above: . Protein (U) [Mass/Vol] 20 mg/dL Abnormal Negative [facility] Comment on above: . RBC, UA /[HPF] Abnormal 0 - 2 /[HPF] [facility] Comment on above: . Specific Mccarley, Urine 1.024 S [facility] Comment on above: . Squam Epithel, UA 3-5 3 - 5 /[HPF] [facility] Comment on above: . Urobilinogen, Urine Normal Normal (0-1) mg/dL [facility] Comment on above: . WBC, UA /[HPF] Abnormal 0 - 5 /[HPF] [facility] Comment on above: . Test Performed by [facility], [address], [place], [place] [id number] [place] [address] [facility] Urine Drug Screenon 06-12-20 22 Amphetamines, urine Positive [facility] Barbiturates, Urine Negative [facility] Benzodiazepine Ur Qual Negative [facility] Cocaine Metabolites, Ur Negative [facility] Methadone, Urine Negative [facility] Opiates, Urine Negative [facility] Oxycodone Screen, Ur Negative [facility] A PCP, Urine Negative [facility] Comment on above: The expected value f or all of the drugs listed above is Negative. The following drugs or drug groups have been screened for by Immunoassay at the following thresholds: Amphetamine class (1000 ng/mL), Barbiturates (200 ng/mL), Benzodiazepines (200 ng/mL), Cocaine (300 ng/mL), Methadone (300 ng/mL), Opiates (300 ng/mL), Oxycodone (100 ng/mL), and PCP (25 ng/mL). NOTE: These results are for medical treatment only. Analysis performed using non-forensic procedures. POSITIVE results are NOT confirmed by a more specific alternative method unless requested. If confirmation is needed, request confirmation under separate order. Test Performed by [facility], [address], [place], [place] [id number] [place] [address] [facility] hCG Qual [place] 06-12-2022 hCG Qual Preg Negative Normal [facility] Comment on above: Result Comment: Refe rence Range: NEGATIVE Effective 11/27/2019, the reference interval for the qualitative test has been updated. This test detects hCG at concentrations of 10 mIU/L or greater in serum. Performed By: #### C UA2 #### [facility] [address] [place] [address] Basic Metabolic Panelon 06-2 Calcium [Mass/Vol] 9.6 mg/dL Normal 8.4-10.4 [facility] Comment on above: Performed By: #### H EMOG, ETOH4, LIPA4, TROPN, BMP3, LFT3 #### [facility] [address] [place] [address] Glucose [Mass/Vol] 104 mg/dL High 70-100 [facility] Comment on above: Performed By: #### H EMOG, ETOH4, LIPA4, TROPN, BMP3, LFT3 #### [facility] [address] [place] [address] Anion gap [Moles/Vol] 11 mmol/L Normal 3-13 [facility] Comment on above: Performed By: #### H EMOG, ETOH4, LIPA4, TROPN, BMP3, LFT3 #### [facility] [address] [place] [address] CO2 [Moles/Vol] 22 mmol/L Normal 22-30 [facility] Comment on above: Performed By: #### H EMOG, ETOH4, LIPA4, TROPN, BMP3, LFT3 #### [facility] [address] [place] [address] Creatinine [Mass/Vol] 0.81 mg/dL Normal 0.52-1.25 [facility] Comment on above: Performed By: #### H EMOG, ETOH4, LIPA4, TROPN, BMP3, LFT3 #### [facility] [address] [place] [address] eGFR OTHER > 90.0 Normal >60 [facility] Comment on above: Result Comment: KDIG O guidelines provide the following GFR categories: Stage GFR(ml/min/1.73 m2) Terms G1 >=90 Normal or high G2 60-89 Mildly decreased* G3a 45-59 Mildly to moderately decreased G3b 30-44 Moderately to severely decreased G4 15-29 Severely decreased G5 <15 Kidney failure *Relative to young adult level. In the absence of evidence of kidney damage, neither GFR category G1 nor G2 fulfill the criteria for CKD. The CKD-EPI equation is validated in individuals 18 years of age and older. Currently the best equation for estimating glomerular filtration rate (GFR) from serum creatinine in children is the Bedside Smith equation. It is less accurate in patients with extremes of muscle mass, restriction of dietary protein, ingestion of creatine, extra-renal metabolism of creatinine, or treatment with medications that affect renal tubular creatinine secretion. Performed By: #### H EMOG, ETOH4, LIPA4, TROPN, BMP3, LFT3 #### [facility] [address] [place] [address] GFR/1.73 sq M.predicted among blacks MDRD (S/P/Bld) [Vol rate/Area] mL/min/{1.73_m2} Normal >60 [facility] Comment on above: Performed By: #### H EMOG, ETOH4, LIPA4, TROPN, BMP3, LFT3 #### [facility] [address] [place] [address] Urea nitrogen [Mass/Vol] 14 mg/dL Normal 9-20 [facility] Comment on above: Performed By: #### H EMOG, ETOH4, LIPA4, TROPN, BMP3, LFT3 #### [facility] [address] [place] [address] Potassium [Moles/Vol] 3.9 mmol/L Normal 3.5-5.1 [facility] Comment on above: Performed By: #### H EMOG, ETOH4, LIPA4, TROPN, BMP3, LFT3 #### [facility] [address] [place] [address] Sodium [Moles/Vol] 138 mmol/L Normal 135-145 [facility] Comment on above: Performed By: #### H EMOG, ETOH4, LIPA4, TROPN, BMP3, LFT3 #### [facility] [address] [place] [address] Chloride [Moles/Vol] 106 mmol/L Normal 98-107 [facility] Comment on above: Performed By: #### H EMOG, ETOH4, LIPA4, TROPN, BMP3, LFT3 #### [facility] [address] [place] [address] Anion gap [Moles/Vol] 11 mmol/L 3 - 13 mmol/L [facility] Calcium [Mass/Vol] 9.6 mg/dL 8.4 - 10. 4 mg/dL [facility] Chloride [Moles/Vol] 106 mmol/L 98 - 10 7 mmol/L [facility] CO2 [Moles/Vol] 22 mmol/L 22 - 30 mmol/L [facility] Creatinine [Mass/Vol] 0.81 mg/dL 0.52 - 1.25 mg/dL [facility] EGFR IF NonAfrican Czech >90.0 >60 mL/min [facility] Comment on above: KDIGO guidelines pro vide the following GFR categories: Stage GFR(ml/min/1.73 m2) Terms G1 >=90 Normal or high G2 60-89 Mildly decreased* G3a 45-59 Mildly to moderately decreased G3b 30-44 Moderately to severely decreased G4 15-29 Severely decreased G5 <15 Kidney failure *Relative to young adult level. In the absence of evidence of kidney damage, neither GFR category G1 nor G2 fulfill the criteria for CKD. The CKD-EPI equation is validated in individuals 18 years of age and older. Currently the best equation for estimating glomerular filtration rate (GFR) from serum creatinine in children is the Bedside Smith equation. It is less accurate in patients with extremes of muscle mass, restriction of dietary protein, ingestion of creatine, extra-renal metabolism of creatinine, or treatment with medications that affect renal tubular creatinine secretion. GFR/1.73 sq M.predicted among blacks MDRD (S/P/Bld) [Vol rate/Area] mL/min/{1.73_m2} >60 mL/min [facility] Glucose [Mass/Vol] 104 mg/dL High 70 - 100 mg/dL [facility] Potassium [Moles/Vol] 3.9 mmol/L 3.5 - 5.1 mmol/L [facility] Sodium [Moles/Vol] 138 mmol/L 135 - 145 mmol/L [facility] Urea nitrogen (BldV) [Mass/Vol] 14 mg/dL 9 - 20 mg/dL [facility] CR Chest Portableon 03-14-20 CR Chest Portable [id number] ACCESSION EXAM DATE/TIME PROCEDURE ORDERING PROVIDER [id number] 03/14/2022 19:41 EDT CR Chest Portable [id number] GUADARRAMA CPT code 00268 Reason For Exam (CR Chest Portable) AMS Report CHEST PORTABLE CLINICAL INDICATION: AMS TECHNIQUE: Portable chest x-ray(s). COMPARISON: None. FINDINGS: Cardiac and mediastinal silhouette within normal limits. Lungs are hypoinflated. No significant vascular congestion. No focal consolidation or apparent pneumothorax. Bony thorax grossly unremarkable. IMPRESSION: 1. Hypoinflation. 2. No other acute findings. Report Dictated on Workstation: AudioName Final Dictating Physician: MD SANTOS WENDELL Signed Date and Time: 03/14/2022 7:49 pm Signed by: MD SANTOS WENDELL Transcribed Date and Time: 03/14/2022 7:50 Normal [facility] CT HEAD WO CONTRASTon 2021 Patient Name: KENIA PETER Computed Tomography ACCESSION EXAM DATE/TIME PROCEDURE ORDERING PROVIDER [id number] 03/14/2022 20:[address] Head or Brain w/o [id number] -BREANNE, JANE Contrast CPT code 92262 Reason For Exam (CT Head or Brain w/o Contrast) AMS Report Reasons for examination: Seizures. Axial unenhanced images of the brain were obtained. Some images limited by motion There are normal sized, midline cerebral ventricles. There is no evidence of mass lesion, hemorrhage, nor brain edema. There is no evidence of acute infarction. There is no hydrocephalus, shift, or herniation. The brainstem and cerebellum are normal. There are no epidural or subdural collections. On the bone window images, there are no significant abnormalities, and the mastoids are clear. IMPRESSION: 1. Negative CT scan of the brain for age. No acute intracranial abnormalities. 2. Paranasal sinusitis changes with opacification of the left maxillary sinus, anterior left ethmoid air cells, and left frontal sinus Report Dictated on --- Final --- Dictating Physician: MD CHERY WILLIAM Signed Date and Time: 03/14/2022 8:27 pm Signed by: MD CHERY WILLIAM Transcribed Date and Time: 03/14/2022 8:28 [facility] Jaime Chery MD - 03/14/2022 Patient Name: KENIA ORTIZ Computed Tomography ACCESSION EXAM DATE/TIME PROCEDURE ORDERING PROVIDER [id number] 03/14/2022 20:[address] Head or Brain w/o [id number] -BREANNE, JANE Contrast CPT code 95446 Reason For Exam (CT Head or Brain w/o Contrast) AMS Report Reasons for examination: Seizures. Axial unenhanced images of the brain were obtained. Some images limited by motion There are normal sized, midline cerebral ventricles. There is no evidence of mass lesion, hemorrhage, nor brain edema. There is no evidence of acute infarction. There is no hydrocephalus, shift, or herniation. The brainstem and cerebellum are normal. There are no epidural or subdural collections. On the bone window images, there are no significant abnormalities, and the mastoids are clear. IMPRESSION: 1. Negative CT scan of the brain for age. No acute intracranial abnormalities. 2. Paranasal sinusitis changes with opacification of the left maxillary sinus, anterior left ethmoid air cells, and left frontal sinus Report Dictated on --- Final --- Dictating Physician: MD CHERY WILLIAM Signed Date and Time: 03/14/2022 8:27 pm Signed by: MD CHERY WILLIAM Transcribed Date and Time: 03/14/2022 8:28 [facility] Work Phone: CT HEAD WO CONTRASTOrdered B y: Jaime Chery on 03-14-2022 [facility] Work Phone: CT Head or Brain w/o Contras ton 03-14-2022 CT Head or Brain w/o Contrast [facility]: [id number] Computed Tomography ACCESSION EXAM DATE/TIME PROCEDURE ORDERING PROVIDER [id number] 03/14/2022 20:[address] Head or Brain w/o [id number] -BREANNE, JANE Contrast CPT code 63889 Reason For Exam (CT Head or Brain w/o Contrast) AMS Report Reasons for examination: Seizures. Axial unenhanced images of the brain were obtained. Some images limited by motion There are normal sized, midline cerebral ventricles. There is no evidence of mass lesion, hemorrhage, nor brain edema. There is no evidence of acute infarction. There is no hydrocephalus, shift, or herniation. The brainstem and cerebellum are normal. There are no epidural or subdural collections. On the bone window images, there are no significant abnormalities, and the mastoids are clear. IMPRESSION: 1. Negative CT scan of the brain for age. No acute intracranial abnormalities. 2. Paranasal sinusitis changes with opacification of the left maxillary sinus, anterior left ethmoid air cells, and left frontal sinus Report Dictated on Final Dictating Physician: MD CHERY WILLIAM Signed Date and Time: 03/14/2022 8:27 pm Signed by: MD CHERY WILLIAM Transcribed Date and Time: 03/14/2022 8:28 Normal [facility] Complete Urinalysison 2021 Bacteria Few (1-5) Abnormal Negative [facility] Comment on above: Result Comment: . Performed By: #### C UA2 #### [facility] [address] [place] [address] RBC, Urine 0 - 2 Normal 0-2 [facility] Comment on above: Result Comment: . Performed By: #### C UA2 #### [facility] [address] [place] [address] Squamous Epithelial 3 - 5 Normal 3-5 [facility] Comment on above: Result Comment: . Performed By: #### C UA2 #### [facility] [address] [place] [address] VOLUME, URINE 12 ml Normal [facility] Comment on above: Result Comment: . Performed By: #### C UA2 #### [facility] [address] [place] [address] WBC, Urine 6 - 10 Abnormal 0-5 [facility] Comment on above: Result Comment: . Performed By: #### C UA2 #### [facility] [address] [place] [address] Appearance (U) Turbid Abnormal [facility] Comment on above: Result Comment: . Performed By: #### C UA2 #### [facility] [address] [place] [address] Bilirubin,Urine Negative Normal Negative [facility] Comment on above: Result Comment: . Performed By: #### C UA2 #### [facility] [address] [place] [address] Color (U) LIGHT YELLOW Normal Lt. Yellow [facility] Comment on above: Result Comment: . Performed By: #### C UA2 #### [facility] [address] [place] [address] Glucose Ql (U) Normal Normal Normal (<70) [facility] Comment on above: Result Comment: . Performed By: #### C UA2 #### [facility] [address] [place] [address] Ketone,Urine Negative Normal Negative [facility] Comment on above: Result Comment: . Performed By: #### C UA2 #### [facility] [address] [place] [address] Leukocytes,Urine 250 Jonel/uL Abnormal Negative [facility] Comment on above: Result Comment: . Performed By: #### C UA2 #### [facility] [address] [place] [address] Nitrites,Urine Negative Normal Negative [facility] Comment on above: Result Comment: . Performed By: #### C UA2 #### [facility] [address] [place] [address] Occult Blood,Urine Negative Normal Negative [facility] Comment on above: Result Comment: . Performed By: #### C UA2 #### [facility] [address] [place] [address] pH,Urine 5.0 Normal 5.0-8.0 [facility] Comment on above: Result Comment: . Performed By: #### C UA2 #### [facility] [address] [place] [address] Specific Mccarley,Urine 1.018 Normal 1.005 - 1.030 [facility] Comment on above: Result Comment: . Performed By: #### C UA2 #### [facility] [address] [place] [address] Total Protein,Urine Negative Normal Negative [facility] Comment on above: Result Comment: . Performed By: #### C UA2 #### [facility] [address] [place] [address] Urobilinogen,Urine Normal Normal Normal (0-1) [facility] Comment on above: Result Comment: . Performed By: #### C UA2 #### [facility] [address] [place] [address] Drugs of Abuseon 03-14-2022 Phencyclidine (PCP), Ur Negative Normal S [facility] Comment on above: Result Comment: The expected value for all of the drugs listed above is Negative. The following drugs or drug groups have been screened for by Immunoassay at the following thresholds: Amphetamine class (1000 ng/mL), Barbiturates (200 ng/mL), Benzodiazepines (200 ng/mL), Cocaine (300 ng/mL), Methadone (300 ng/mL), Opiates (300 ng/mL), Oxycodone (100 ng/mL), and PCP (25 ng/mL). NOTE: These results are for medical treatment only. Analysis performed using non-forensic procedures. POSITIVE results are NOT confirmed by a more specific alternative method unless requested. If confirmation is needed, request confirmation under separate order. Performed By: #### C UA2 #### [facility] [address] [place] [address] Cocaine, Ur Negative Normal [facility] Comment on above: Performed By: #### C UA2 #### [facility] [address] [place] [address] Methadone, Ur Negative Normal [facility] Comment on above: Performed By: #### C UA2 #### [facility] [address] [place] [address] Amphetamines, Ur Negative Normal [facility] Comment on above: Performed By: #### C UA2 #### [facility] [address] [place] [address] Opiates, Ur Negative Normal [facility] Comment on above: Performed By: #### C UA2 #### [facility] [address] [place] [address] Benzodiazepines, Ur Positive Normal [facility] Comment on above: Performed By: #### C UA2 #### [facility] [address] [place] [address] Barbiturates, Ur Negative Normal [facility] Comment on above: Performed By: #### C UA2 #### [facility] [address] [place] [address] Oxycodone/Oxymorphine,Ur Negative Normal [facility] Comment on above: Performed By: #### C UA2 #### [facility] [address] [place] [address] Ethanolon 06-29-2022 Ethanol Lvl <0.010 0.000 - 0.010 g/dL [facility] Comment on above: NOTE: This result is for medical treatment only. Analysis performed using non-forensic procedures. Ethanol Serum/Plasmaon 03-14 Ethanol-Serum/Plasma < 0.010 Normal 0.000-0.010 [facility] Comment on above: Result Comment: NOTE : This result is for medical treatment only. Analysis performed using non-forensic procedures. Performed By: #### H EMOG, ETOH4, LIPA4, TROPN, BMP3, LFT3 #### [facility] [address] [place] [address] Glucose,Bedsideon 03-14-2022 Glucose [Mass/Vol] 101 mg/dL High 70-100 [facility] Comment on above: Result Comment: Test performed by glucose meter. Results may be 10%-15% lower than serum/plasma values. (CLIA ID [id number]) Performed By: #### H CGUR, CUA2 #### [facility] [address] [place] [address] HCG,Urine Qualon 03-14-2022 Beta HCG ( test) Ql (U) Negative Normal Negative [facility] Comment on above: Result Comment: Plea se note: Very dilute urine specimens, as indicated by a low specific gravity, may not contain member services representative levels of hCG. If is still suspected, a first morning urine specimen should be collected 48 hours later and tested. is the most common reason for HCG in urine, although choriocarcinoma, hydatidiform mole, and certain nontropho- blastic malignancies also result in detectable urinary HCG levels. Sensitivity = 20mIU/mL. Performed By: #### C UA2 #### [facility] [address] [place] [address] HGC Urine Qual Pregon 2021 Beta HCG ( test) Ql (U) Negative Negative NA [facility] Comment on above: Please note: Very di lute urine specimens, as indicated by a low specific gravity, may not contain member services representative levels of hCG. If is still suspected, a first morning urine specimen should be collected 48 hours later and tested. is the most common reason for HCG in urine, although choriocarcinoma, hydatidiform mole, and certain nontropho- blastic malignancies also result in detectable urinary HCG levels. Sensitivity = 20mIU/mL. Test Performed by [facility], [address] [place] [address]. , [address] LAB [facility] Hemogramon 03-14-2022 Erythrocyte distribution width (RBC) [Ratio] 12.7 % Normal 11.5-14.5 [facility] Comment on above: Performed By: #### H EMOG, ETOH4, LIPA4, TROPN, BMP3, LFT3 #### [facility] [address] [facility] [place] [address] Hematocrit (Bld) [Volume fraction] 43.2 % Normal 35.0-47.0 [facility] Comment on above: Performed By: #### H EMOG, ETOH4, LIPA4, TROPN, BMP3, LFT3 #### [address] [place] [address] Hemoglobin (Bld) [Mass/Vol] 15.2 g/dL Normal 11.7-16.0 [facility] Comment on above: Performed By: #### H EMOG, ETOH4, LIPA4, TROPN, BMP3, LFT3 #### [facility] [address] [facility] [place] [address] MCH (RBC) [Entitic mass] 31.9 pg Normal 26.0-34.0 [facility] Comment on above: Performed By: #### H EMOG, ETOH4, LIPA4, TROPN, BMP3, LFT3 #### [address] [place] [address] MCHC 35.2 % Normal 32.0-36.0 [facility] Comment on above: Performed By: #### H EMOG, ETOH4, LIPA4, TROPN, BMP3, LFT3 #### [facility] [address] [place] [address] MCV (RBC) [Entitic vol] 90.6 fL Normal 79.0-98.0 S [facility] Comment on above: Performed By: #### H EMOG, ETOH4, LIPA4, TROPN, BMP3, LFT3 #### [facility] [address] [place] [address] Platelet mean volume (Bld) [Entitic vol] 9.9 fL Normal 7.4-12.4 [facility] Comment on above: Result Comment: MPV is a calculated measurement using platelet volume ratio. Performed By: #### H EMOG, ETOH4, LIPA4, TROPN, BMP3, LFT3 #### [facility] [address] [place] [address] Platelets (Bld) [#/Vol] 271 10*3/uL Normal 140-440 [facility] Comment on above: Performed By: #### H EMOG, ETOH4, LIPA4, TROPN, BMP3, LFT3 #### [facility] [address] [place] [address] RBC (Bld) [#/Vol] 4.77 10*6/uL Normal 3.80-5.20 [facility] Comment on above: Performed By: #### H EMOG, ETOH4, LIPA4, TROPN, BMP3, LFT3 #### [facility] [address] [place] [address] WBC (Bld) [#/Vol] 11.3 10*3/uL High 3.6-10.7 [facility] Comment on above: Performed By: #### H EMOG, ETOH4, LIPA4, TROPN, BMP3, LFT3 #### [facility] [address] [place] [address] Hemogram (CBC)on 03-14-2022 Hematocrit (Bld) [Volume fraction] 43.2 % 35.0 - 47.0 % [facility] Hemoglobin (Bld) [Mass/Vol] 15.2 g/dL 11.7 - 16.0 g/dL [facility] Interpretation and review of laboratory results Abnormal [facility] MCH (RBC) [Entitic mass] 31.9 pg 26. 0 - 34.0 pg [facility] MCHC (RBC) [Mass/Vol] 35.2 % 32.0 - 36.0 % [facility] MCV (RBC) [Entitic vol] 90.6 fL 79.0 - 98.0 fL [facility] Platelet distribution width (Bld) [Ratio] 12.7 % 11.5 - 14.5 % [facility] Platelet mean volume (Bld) [Entitic vol] 9.9 fL 7.4 - 12.4 fL [facility] Comment on above: MPV is a calculated measurement using platelet volume ratio. Platelets (Bld) [#/Vol] 271 10*3/uL 140 - 440 10*3/uL [facility] RBC (Bld) [#/Vol] 4.77 10*6/uL 3.80 - 5.2 0 10*6/uL [facility] WBC (Bld) [#/Vol] 11.3 10*3/uL High 3.6 - 10.7 10*3/uL [facility] Test Performed by [facility], [address] LAB [facility] Hepatic Functionon 2 ALP [Catalytic activity/Vol] 64 U/L Normal 38-126 [facility] Comment on above: Performed By: #### H EMOG, ETOH4, LIPA4, TROPN, BMP3, LFT3 #### [facility] [address] [place] [address] ALT [Catalytic activity/Vol] 26 U/L Normal 0-34 [facility] Comment on above: Result Comment: The ALT test is performed by an updated assay method. Please note that the reference intervals have been changed and are now sex specific. Performed By: #### H EMOG, ETOH4, LIPA4, TROPN, BMP3, LFT3 #### [facility] [address] [place] [address] AST [Catalytic activity/Vol] 29 U/L Normal 15-46 [facility] Comment on above: Performed By: #### H EMOG, ETOH4, LIPA4, TROPN, BMP3, LFT3 #### [facility] [address] [place] [address] Bilirubin [Mass/Vol] 0.6 mg/dL Normal 0.2-1.3 [facility] Comment on above: Performed By: #### H EMOG, ETOH4, LIPA4, TROPN, BMP3, LFT3 #### [facility] [address] [place] [address] Bilirubin.indirect [Mass/Vol] 0.0 mg/dL Normal 0.0-0.3 [facility] Comment on above: Performed By: #### H EMOG, ETOH4, LIPA4, TROPN, BMP3, LFT3 #### [facility] [address] [place] [address] Protein [Mass/Vol] 8.3 g/dL High 6.3-8.2 [facility] Comment on above: Performed By: #### H EMOG, ETOH4, LIPA4, TROPN, BMP3, LFT3 #### [facility] [address] [place] [address] Albumin [Mass/Vol] 4.7 g/dL Normal 3.5-5.0 [facility] Comment on above: Performed By: #### H EMOG, ETOH4, LIPA4, TROPN, BMP3, LFT3 #### [facility] [address] [place] [address] Hepatic Function Panelon Albumin [Mass/Vol] 4.7 g/dL 3.5 - 5.0 g/dL [facility] ALP (Bld) [Catalytic activity/Vol] 64 U/L 38 - 126 U/L [facility] ALT [Catalytic activity/Vol] 26 U/L 0 - 34 U/L [facility] Comment on above: The ALT test is perf ormed by an updated assay method. Please note that the reference intervals have been changed and are now sex specific. AST [Catalytic activity/Vol] 29 U/L 15 - 46 U/L [facility] Bilirubin [Mass/Vol] 0.6 mg/dL 0.2 - 1 .3 mg/dL [facility] Bilirubin.indirect [Mass/Vol] 0.0 mg/dL 0.0 - 0.3 mg/dL [facility] Free PSA/Total PSA [Mass fraction] 8.3 g/dL High 6.3 - 8.2 g/dL [facility] Lipaseon 03-14-2022 Lipase [Catalytic activity/Vol] 122 U/L Normal 23-300 [facility] Comment on above: Performed By: #### C UA2 #### [facility] [address] [place] [address] Lipase [Catalytic activity/Vol] 122 U/L 23 - 300 U/L [facility] No Panel Informationon 03-14 Test Performed by [facility], [address] , [address] [facility] Interpretation and review of laboratory results Abnormal [facility] Test Performed by [facility], [address] , [address] LAB [facility] Radiology Study observation (narrative) [facility] Work Phone: POCT Glucoseon 03-14-2022 Glucose [Mass/Vol] 101 mg/dL High 70 - 100 mg/dL [facility] Comment on above: Test performed by gl ucose meter. Results may be 10%-15% lower than serum/plasma values. (CLIA ID [id number]) Interpretation and review of laboratory results Abnormal [facility] Test Performed by [facility], [address] , [address] LAB [facility] POCT Venouson 03-14-2022 Base Excess, Marito -1.7 mmol/L -3.0 - 3.0 mmol/L [facility] HCO3 (Bld) [Moles/Vol] 24.7 mmol/L 23.0 - 27.0 mmol/L [facility] Oxygen saturation in Blood 69.7 % 60.0 - 80.0 % [facility] pCO2, Marito 46.7 mm[Hg] 40.0 - 55.0 mm[Hg] [facility] pH, Marito 7.331 [facility] pO2, Marito 39.3 mm[Hg] 30.0 - 50.0 mm[Hg] [facility] TC02 (Calc), Marito 26.1 mmol/L 24.0 - 28.0 mmol/L [facility] Comment on above: Performed by CLIA ID : [id number] [place], [place] Test Performed by [facility], [address] , [address] [facility] Troponin Ion 03-14-2022 Troponin I.cardiac [Mass/Vol] ng/mL Normal 0.000-0.034 [facility] Comment on above: . Result Comment: . Performed By: #### C UA2 #### [facility] [address] [place] [address] Urinalysison 03-14-2022 Appearance (U) Turbid Abnormal Clear NA [facility] Comment on above: . Bacteria, UA Few (1-5) Abnormal Negative /[HPF] [facility] Comment on above: . Bilirubin Urine Negative Negative mg/dL [facility] Comment on above: . Color (U) LIGHT YELLOW Lt. Yellow NA [facility] Comment on above: . Glucose, Ur Normal Normal (<70) mg/dL [facility] Comment on above: . Interpretation and review of laboratory results Abnormal [facility] Ketones Ql (U) Negative Negative mg/dL [facility] Comment on above: . LEUKOCYTES, UA 250 Abnormal Negative Jonel/uL [facility] Comment on above: . Nitrite, Urine Negative Negative NA [facility] Comment on above: . Occult Blood,Urine Negative Negative mg/dL [facility] Comment on above: . pH (U) 5.0 [pH] [facility] Comment on above: . RBC, UA 0-2 0 - 2 /[HPF] [facility] Comment on above: . Specific Mccarley, Urine 1.018 S [facility] Comment on above: . Squam Epithel, UA 3-5 3 - 5 /[HPF] [facility] Comment on above: . Total Protein, Urine Negative Negativ e mg/dL [facility] Comment on above: . Urobilinogen, Urine Normal Normal (0-1) mg/dL [facility] Comment on above: . Volume 12 ml [facility] Comment on above: . WBC, UA 6-10 Abnormal 0 - 5 /[HPF] [facility] Comment on above: . Test Performed by [facility], [address] , [place], [place] [address] [facility] Urine Drug Screenon 03-14-20 22 Amphetamines, urine Negative [facility] Barbiturates, Urine Negative [facility] Benzodiazepine Ur Qual Positive COUCH [facility] Cocaine Metabolites, Ur Negative S [facility] Methadone, Urine Negative [facility] Opiates, Urine Negative [facility] Oxycodone Screen, Ur Negative [facility] A PCP, Urine Negative [facility] Comment on above: The expected value f or all of the drugs listed above is Negative. The following drugs or drug groups have been screened for by Immunoassay at the following thresholds: Amphetamine class (1000 ng/mL), Barbiturates (200 ng/mL), Benzodiazepines (200 ng/mL), Cocaine (300 ng/mL), Methadone (300 ng/mL), Opiates (300 ng/mL), Oxycodone (100 ng/mL), and PCP (25 ng/mL). NOTE: These results are for medical treatment only. Analysis performed using non-forensic procedures. POSITIVE results are NOT confirmed by a more specific alternative method unless requested. If confirmation is needed, request confirmation under separate order. Venous Blood Gas Respiratory on 03-14-2022 Base Excess -1.7 mmol/L Normal -3.0-3.0 [facility] Comment on above: Performed By: #### V BGE #### [facility] [address] [place] [address] CO2 [Moles/Vol] 26.1 mmol/L Normal 24.0-28.0 [facility] Comment on above: Result Comment: Perf ormed by SUBHASH ID: [id number] [place], [place] Performed By: #### V BGE #### [facility] [address] [place] [address] HCO3 (Bld) [Moles/Vol] 24.7 mmol/L Normal 23.0-27.0 [facility] Comment on above: Performed By: #### V BGE #### [facility] [address] [place] [address] Oxygen (Bld) [Partial pressure] 39.3 mm[Hg] Normal 30.0-50.0 [facility] Comment on above: Performed By: #### V BGE #### [facility] [address] [place] [address] Oxygen saturation in Blood 69.7 % Normal 60.0-80.0 [facility] Comment on above: Performed By: #### V BGE #### [facility] [address] [place] [address] pCO2 46.7 mm[Hg] Normal 40.0-55.0 [facility] Comment on above: Performed By: #### V BGE #### [facility] [address] [place] [address] pH 7.331 Normal 7.330-7.430 [facility] Comment on above: Performed By: #### V BGE #### [facility] [address] [place] [address] XR CHEST PORTABLEon 03-14-20 Patient Name: KENIA ORTIZ Diagnostic Radiology ACCESSION EXAM DATE/TIME PROCEDURE ORDERING PROVIDER [id number] 03/14/2022 19:41 EDT CR Chest Portable [id number] -BREANNE, JANE CPT code 66275 Reason For Exam (CR Chest Portable) AMS Report CHEST PORTABLE CLINICAL INDICATION: AMS TECHNIQUE: Portable chest x-ray(s). COMPARISON: None. FINDINGS: Cardiac and mediastinal silhouette within normal limits. Lungs are hypoinflated. No significant vascular congestion. No focal consolidation or apparent pneumothorax. Bony thorax grossly unremarkable. IMPRESSION: 1. Hypoinflation. 2. No other acute findings. Report Dictated on Workstation: KARSON --- Final --- Dictating Physician: MD SANTOS WENDELL Signed Date and Time: 03/14/2022 7:49 pm Signed by: MD SANTOS WENDELL Transcribed Date and Time: 03/14/2022 7:50 [facility] Dhruv Santos MD - 03/14/2022 Patient Name: KENIA ORTIZ Diagnostic Radiology ACCESSION EXAM DATE/TIME PROCEDURE ORDERING PROVIDER [id number] 03/14/2022 19:41 EDT CR Chest Portable [id number] -BREANNE, JANE CPT code 11766 Reason For Exam (CR Chest Portable) AMS Report CHEST PORTABLE CLINICAL INDICATION: AMS TECHNIQUE: Portable chest x-ray(s). COMPARISON: None. FINDINGS: Cardiac and mediastinal silhouette within normal limits. Lungs are hypoinflated. No significant vascular congestion. No focal consolidation or apparent pneumothorax. Bony thorax grossly unremarkable. IMPRESSION: 1. Hypoinflation. 2. No other acute findings. Report Dictated on Workstation: KARSON --- Final --- Dictating Physician: MD SANTOS WENDELL Signed Date and Time: 03/14/2022 7:49 pm Signed by: MD SANTOS WENDELL Transcribed Date and Time: 03/14/2022 7:50 [facility] Work Phone: XR CHEST PORTABLEOrdered By: Dhruv Santos on 03-14-2022 [employer] Work Phone: CULTURE URINEon 02-21-2022 CULTURE URINE 1 Organism Escherich ia coli >100,000 CFU/ml 1 Organism Antibiotic Result Intrp Ampicillin(PRAVEEN) 4 S Cefazolin(PRAVEEN) <= 4 S Ceftriaxone(PRAVEEN) <= 1 S Cefepime(PRAVEEN) <= 1 S Aztreonam(PRAVEEN) <= 1 S Amoxicillin/Clavulanic Acid(PRAVEEN) <= 2 S Ampicillin/Sulbactam(M IC) <= 2 S Pip/Tazobactam(PRAVEEN) <= 4 S Meropenem(PRAVEEN) <= 0.25 S Ciprofloxacin(PRAVEEN) <= 0.25 S Trimeth/Sulfa(PRAVEEN) <= 20 S Nitrofurantoin(PRAVEEN) <= 16 S Gentamicin(PRAVEEN) <= 1 S Amikacin(PRAVEEN) <= 2 S Normal [facility] Comment on above: Performed By: #### H MEDHAT PEREIRA #### [facility] [address] [place] [address] CT Abdomen Pelvis Wo Contras ton 02-19-2022 Patient Name: KENIA ORTIZ Computed Tomography ACCESSION EXAM DATE/TIME PROCEDURE ORDERING PROVIDER [id number] 02/19/2022 04:[address] Abdomen/Pelvis (No [id number] SHALONDA ALEXANDER PO, No IV) CPT code 91089 Reason For Exam (CT Abdomen/Pelvis (No PO, No IV)) left flank pain Report CT ABDOMEN AND PELVIS WITHOUT CONTRAST CLINICAL INDICATION: Left flank pain TECHNIQUE: Transaxial sequence through the abdomen and pelvis without contrast with 3 mm reconstruction. Sagittal coronal reconstruction images included. Dose reduction was employed with automated exposure control. COMPARISON: 12/01/2021 FINDINGS: Exam quality: Limited for the evaluation of solid organs due to the lack of intravenous contrast and limited for evaluation of the gastrointestinal tract due to lack of oral contrast. Chest base: Normal. Liver: Normal size and contour. No identifiable lesion. Biliary tree: Normal caliber. Spleen: Normal. Adrenals: Normal. Pancreas: Unremarkable. Kidneys: No contour abnormality or focal renal lesion. Renal collecting systems: Multiple punctate and amorphous collections of calcification are noted within the region of the collecting systems and medullary pyramids of the kidneys without change. There is no hydronephrosis on the right. Left hydronephrosis is again noted and there is a obstructing calculus at the ureteropelvic junction measuring 0.6 cm. Free fluid: None. Retroperitoneal/mesent madan lymphadenopathy: None. Aorta: Normal caliber. Bowel: Normal caliber. Computed Tomography Report Abdominal wall: Ventral hernia above the umbilicus contains omentum. Hernia measures up to 4.5 cm and the defect in the abdominal wall measures up to 1.5 cm. There is a additional smaller ventral hernia just above this region of the midline measuring up to 1 cm. Bladder: No calculi or filling defects. Pelvic organs/viscera: No mass identified. Pelvic lymphadenopathy: None. Osseous structures: Normal. IMPRESSION: 1. Renal calculi along with medullary a marked calcific foci, corresponding to medullary sponge kidney 2. Left hydronephrosis with obstructing 0.6 cm calculus at the ureteropelvic junction. 3. Ventral hernias containing omentum Report Dictated on --- Final --- Dictating Physician: MD SALAZAR JEFFREY Signed Date and Time: 02/19/2022 4:51 am Signed by: MD SALAZAR JEFFREY Transcribed Date and Time: 02/19/2022 4:52 Damaso Darden MD - 02/19/2022 Patient Name: KENIA ORTIZ Computed Tomography ACCESSION EXAM DATE/TIME PROCEDURE ORDERING PROVIDER [id number] 02/19/2022 04:[address] Abdomen/Pelvis (No [id number] -SHALONDA RODRIGUEZ PO, No IV) CPT code 93339 Reason For Exam (CT Abdomen/Pelvis (No PO, No IV)) left flank pain Report CT ABDOMEN AND PELVIS WITHOUT CONTRAST CLINICAL INDICATION: Left flank pain TECHNIQUE: Transaxial sequence through the abdomen and pelvis without contrast with 3 mm reconstruction. Sagittal coronal reconstruction images included. Dose reduction was employed with automated exposure control. COMPARISON: 12/01/2021 FINDINGS: Exam quality: Limited for the evaluation of solid organs due to the lack of intravenous contrast and limited for evaluation of the gastrointestinal tract due to lack of oral contrast. Chest base: Normal. Liver: Normal size and contour. No identifiable lesion. Biliary tree: Normal caliber. Spleen: Normal. Adrenals: Normal. Pancreas: Unremarkable. Kidneys: No contour abnormality or focal renal lesion. Renal collecting systems: Multiple punctate and amorphous collections of calcification are noted within the region of the collecting systems and medullary pyramids of the kidneys without change. There is no hydronephrosis on the right. Left hydronephrosis is again noted and there is a obstructing calculus at the ureteropelvic junction measuring 0.6 cm. Free fluid: None. Retroperitoneal/mesent madan lymphadenopathy: None. Aorta: Normal caliber. Bowel: Normal caliber. Computed Tomography Report Abdominal wall: Ventral hernia above the umbilicus contains omentum. Hernia measures up to 4.5 cm and the defect in the abdominal wall measures up to 1.5 cm. There is a additional smaller ventral hernia just above this region of the midline measuring up to 1 cm. Bladder: No calculi or filling defects. Pelvic organs/viscera: No mass identified. Pelvic lymphadenopathy: None. Osseous structures: Normal. IMPRESSION: 1. Renal calculi along with medullary a marked calcific foci, corresponding to medullary sponge kidney 2. Left hydronephrosis with obstructing 0.6 cm calculus at the ureteropelvic junction. 3. Ventral hernias containing omentum Report Dictated on --- Final --- Dictating Physician: MD SALAZAR JEFFREY Signed Date and Time: 02/19/2022 4:51 am Signed by: MD SALAZAR JEFFREY Transcribed Date and Time: 02/19/2022 4:52 [facility] Work Phone: Radiology Study observation (narrative) [facility] Work Phone: CT Abdomen Pelvis Wo Contras tOrdered By: Damaso Salazar on 02-19-2022 [facility] Work Phone: CT Abdomen/Pelvis w/o Contra ston 02-19-2022 CT Abdomen/Pelvis w/o Contrast Patient Name: KENIA ORTIZ Computed Tomography ACCESSION EXAM DATE/TIME PROCEDURE ORDERING PROVIDER [id number] 02/19/2022 04:[address] Abdomen/Pelvis (No [id number] -PALLACI, SHALONDA PO, No IV) CPT code 71300 Reason For Exam (CT Abdomen/Pelvis (No PO, No IV)) left flank pain Report CT ABDOMEN AND PELVIS WITHOUT CONTRAST CLINICAL INDICATION: Left flank pain TECHNIQUE: Transaxial sequence through the abdomen and pelvis without contrast with 3 mm reconstruction. Sagittal coronal reconstruction images included. Dose reduction was employed with automated exposure control. COMPARISON: 12/01/2021 FINDINGS: Exam quality: Limited for the evaluation of solid organs due to the lack of intravenous contrast and limited for evaluation of the gastrointestinal tract due to lack of oral contrast. Chest base: Normal. Liver: Normal size and contour. No identifiable lesion. Biliary tree: Normal caliber. Spleen: Normal. Adrenals: Normal. Pancreas: Unremarkable. Kidneys: No contour abnormality or focal renal lesion. Renal collecting systems: Multiple punctate and amorphous collections of calcification are noted within the region of the collecting systems and medullary pyramids of the kidneys without change. There is no hydronephrosis on the right. Left hydronephrosis is again noted and there is a obstructing calculus at the ureteropelvic junction measuring 0.6 cm. Free fluid: None. Retroperitoneal/mesent madan lymphadenopathy: None. Aorta: Normal caliber. Bowel: Normal caliber. Computed Tomography Report Abdominal wall: Ventral hernia above the umbilicus contains omentum. Hernia measures up to 4.5 cm and the defect in the abdominal wall measures up to 1.5 cm. There is a additional smaller ventral hernia just above this region of the midline measuring up to 1 cm. Bladder: No calculi or filling defects. Pelvic organs/viscera: No mass identified. Pelvic lymphadenopathy: None. Osseous structures: Normal. IMPRESSION: 1. Renal calculi along with medullary a marked calcific foci, corresponding to medullary sponge kidney 2. Left hydronephrosis with obstructing 0.6 cm calculus at the ureteropelvic junction. 3. Ventral hernias containing omentum Report Dictated on Final Dictating Physician: MD SALAZAR JEFFREY Signed Date and Time: 02/19/2022 4:51 am Signed by: MD SALAZAR JEFFREY Transcribed Date and Time: 02/19/2022 4:52 Normal [facility] Complete Urinalysison 2021 Bacteria Few (1-5) Abnormal Negative [facility] Comment on above: Result Comment: . Performed By: #### H RANDALL, CUA2 #### [facility] [address] [place] [address] RBC, Urine 6 - 10 Abnormal 0-2 [facility] Comment on above: Result Comment: . Performed By: #### H RANDALL, CUA2 #### [facility] [address] [place] [address] Squamous Epithelial 11 - 25 Abnormal 3-5 [facility] Comment on above: Result Comment: . Performed By: #### H CGCORRIE, CUA2 #### [facility] [address] [place] [address] VOLUME, URINE 12 ml Normal [facility] Comment on above: Result Comment: . Performed By: #### H CGCORIRE, CUA2 #### [facility] [address] [place] [address] WBC, Urine 11 - 25 Abnormal 0-5 [facility] Comment on above: Result Comment: . Performed By: #### H CGCORRIE, CUA2 #### [facility] [address] [place] [address] Appearance (U) Turbid Abnormal Clear [facility] Comment on above: Result Comment: . Performed By: #### H CGUR, CUA2 #### [facility] [address] [place] [address] Bilirubin,Urine Negative Normal Negative [facility] Comment on above: Result Comment: . Performed By: #### H CGUR, CUA2 #### [facility] [address] [place] [address] Color (U) YELLOW Normal Lt. Yellow [facility] Comment on above: Result Comment: . Performed By: #### H CGUR, CUA2 #### [facility] [address] [place] [address] Glucose Ql (U) Normal Normal Normal (<70) [facility] Comment on above: Result Comment: . Performed By: #### H CGUR, CUA2 #### [facility] [address] [place] [address] Ketone,Urine Negative Normal Negative [facility] Comment on above: Result Comment: . Performed By: #### H CGUR, CUA2 #### [facility] [address] [place] [address] Leukocytes,Urine 500 Jonel/uL Abnormal Negative [facility] Comment on above: Result Comment: . Performed By: #### H CGUR, CUA2 #### [facility] [address] [place] [address] Nitrites,Urine Negative Normal Negative [facility] Comment on above: Result Comment: . Performed By: #### H CGUR, CUA2 #### [facility] [address] [place] [address] Occult Blood,Urine 0.2 mg/dL Abnormal Negative [facility] Comment on above: Result Comment: . Performed By: #### H CGUR, CUA2 #### [facility] [address] [place] [address] pH,Urine 6.0 Normal 5.0-8.0 [facility] Comment on above: Result Comment: . Performed By: #### H CGUR, CUA2 #### [facility] [address] [place] [address] Protein (U) [Mass/Vol] 100 mg/dL Abnormal Negative [facility] Comment on above: Result Comment: . Performed By: #### H RANDALL, CUA2 #### [facility] [address] [place] [address] Specific Mccarley,Urine 1.019 Normal 1.005 - 1.030 [facility] Comment on above: Result Comment: . Performed By: #### H RANDALL, CUA2 #### [facility] [address] [place] [address] Urobilinogen,Urine Normal Normal Normal (0-1) [facility] Comment on above: Result Comment: . Performed By: #### H RANDALL, CUA2 #### [facility] [address] [place] [address] HCG,Urine Qualon 2 Beta HCG ( test) Ql (U) Negative Normal Negative [facility] Comment on above: Result Comment: Plea note: Very dilute urine specimens, as indicated by a low specific gravity, may not contain member services representative levels of hCG. If is still suspected, a first morning urine specimen should be collected 48 hours later and tested. is the most common reason for HCG in urine, although choriocarcinoma, hydatidiform mole, and certain nontropho- blastic malignancies also result in detectable urinary HCG levels. Sensitivity = 20mIU/mL. Performed By: #### H RANDALL, CUA2 #### [facility] [address] [place] [address] , URINEon 2 Beta HCG ( test) Ql (U) Negative Negative NA [facility] Comment on above: Please note: Very di lute urine specimens, as indicated by a low specific gravity, may not contain member services representative levels of hCG. If is still suspected, a first morning urine specimen should be collected 48 hours later and tested. is the most common reason for HCG in urine, although choriocarcinoma, hydatidiform mole, and certain nontropho- blastic malignancies also result in detectable urinary HCG levels. Sensitivity = 20mIU/mL. Test Performed by [facility], [address] , [address] [facility] 02-19-2022 Appearance (U) Turbid Abnormal Clear NA [facility] Comment on above: . Bacteria, UA Few (1-5) Abnormal Negative /[HPF] [facility] Comment on above: . Bilirubin Urine Negative Negative mg/dL [facility] Comment on above: . Color (U) YELLOW Lt. Yellow NA [facility] Comment on above: . Glucose, Ur Normal Normal (<70) mg/dL [facility] Comment on above: . Interpretation and review of laboratory results Abnormal [facility] Ketones Ql (U) Negative Negative mg/dL [facility] Comment on above: . LEUKOCYTES, UA 500 Abnormal Negative Jonel/uL [facility] Comment on above: . Nitrite, Urine Negative Negative NA [facility] Comment on above: . Occult Blood,Urine 0.2 mg/dL Abnormal Negative [facility] Comment on above: . pH (U) 6.0 [pH] [facility] Comment on above: . Protein (U) [Mass/Vol] 100 mg/dL Abnormal Negative [facility] Comment on above: . RBC, UA 6-10 Abnormal 0 - 2 /[HPF] [facility] Comment on above: . Specific Mccarley, Urine 1.019 S [facility] Comment on above: . Squam Epithel, UA 11-25 Abnormal 3 - 5 /[HPF] [facility] Comment on above: . Urobilinogen, Urine Normal Normal (0-1) mg/dL [facility] Comment on above: . Volume 12 ml [facility] Comment on above: . WBC, UA 11-25 Abnormal 0 - 5 /[HPF] [facility] Comment on above: . Test Performed by [facility], [address] , [address] LAB [facility] XR ELBOW GENERAL 2V AP/LAT L EFTon 12-19-2021 [facility] XR Elbow - left AP and Later natalia 12-19-2021 * * *Final Report* * * DATE OF EXAM: Dec 19 2021 8:18AM WOX 5322 - XR ELBOW 2V AP/LAT LT / PROCEDURE REASON: Left elbow pain * * * * Physician Interpretation * * * * Indication: Left elbow pain Comparison: None 2 views of the left elbow are obtained. There is normal architecture and mineralization of the bones. There is no acute fracture or dislocation. Joint spaces are maintained. Small bony spur on the coronoid process. Impression: 1. No acute fracture or dislocation. Tree Trimmer: CAMMY Transcribe Date/Time: Dec 19 2021 8:50A Dictated by : POLINA NUNO MD This examination was interpreted and the report reviewed and electronically signed by: POLINA NUNO MD on Dec 19 2021 8:53AM [facility] DIVISION OF RADIOLOGY Provider, [facility] * * *Final Report* * * DATE OF EXAM: Dec 19 2021 8:18AM WOX 5322 - XR ELBOW 2V AP/LAT LT / PROCEDURE REASON: Left elbow pain * * * * Physician Interpretation * * * * Indication: Left elbow pain Comparison: None 2 views of the left elbow are obtained. There is normal architecture and mineralization of the bones. There is no acute fracture or dislocation. Joint spaces are maintained. Small bony spur on the coronoid process. Impression: 1. No acute fracture or dislocation. Tree Trimmer[facility] Transcribe Date/Time: Dec 19 2021 8:50A Dictated by : POLINA NUNO MD This examination was interpreted and the report reviewed and electronically signed by: POLINA NUNO MD on Dec 19 2021 8:53AM [facility] Rad[facility]narrative[facility] XR Elbow - left AP and Later alOrdered By: f Provider on 12-19-[address] [facility] [address] Abdomen/Pelvis w/o Contra nabil 12-02-2021 CT Abdomen/Pelvis w/o Contrast Patient Name: KENIA ORTIZ Computed Tomography ACCESSION EXAM DATE/TIME PROCEDURE ORDERING PROVIDER [id number] 12/01/2021 22:[address] Abdomen/Pelvis (No MD BRADLEY, LINDEN PO, No IV) CPT code 38859 Reason For Exam (CT Abdomen/Pelvis (No PO, No IV)) left flank pain with po contrast Report CT ABDOMEN AND PELVIS WITHOUT CONTRAST CLINICAL INDICATION: left flank pain with po contrast TECHNIQUE: CT scan of the abdomen and pelvis without IV/oral contrast. Multiplanar reformations. Oral contrast utilized. COMPARISON: None FINDINGS: Solid organ evaluation limited from lack of IV contrast. Lung bases are clear. No free intraperitoneal gas seen. Liver shows no significant abnormality. Normal-appearing biliary tree status-post cholecystectomy. Spleen shows no significant abnormality. Adrenal glands show no significant abnormality. Pancreas shows no significant abnormality. There are innumerable medullary renal calcifications bilaterally, likely related to medullary sponge kidney. In addition, there is a calcification at the left UPJ measuring 5.2 x 4.1 mm in axial cross-section, and 7.3 mm in craniocaudal dimension. Mild left hydronephrosis. Abdominal aorta is nonaneurysmal. The ovaries appear grossly unremarkable. No bowel obstruction. There are two supraumbilical fat-containing midline abdominal wall hernias. The more cephalad is quite small, the more caudad measures 4.6 x 3.2 cm in axial cross-section, with a defect in the abdominal wall musculature about 17 mm. Fat which is herniated, and fat just deep to the herniated fat appears inflamed. This may be incarcerated. Appendix not seen with certainty. IMPRESSION: 1. Multiple bilateral renal calculi compatible with medullary sponge kidney. Left UPJ calculus with mild left hydronephrosis. 2. Two midline supraumbilical abdominal wall fat-containing hernias, the more caudal of which the fat appears inflamed, could be incarcerated. Computed Tomography Report Report Dictated on Final Dictating Physician: MD LORA JOHN R Signed Date and Time: 12/01/2021 10:29 pm Signed by: MD LORA JOHN R Transcribed Date and Time: 12/01/2021 10:30 Normal [facility] CT Abdomen Pelvis Wo Contras ton 12-01-2021 Patient Name: KENIA ORTIZ Computed Tomography ACCESSION EXAM DATE/TIME PROCEDURE ORDERING PROVIDER [id number] 12/01/2021 22:[address] Abdomen/Pelvis (No MD BRADLEY, LINDEN PO, No IV) CPT code 50667 Reason For Exam (CT Abdomen/Pelvis (No PO, No IV)) left flank pain with po contrast Report CT ABDOMEN AND PELVIS WITHOUT CONTRAST CLINICAL INDICATION: left flank pain with po contrast TECHNIQUE: CT scan of the abdomen and pelvis without IV/oral contrast. Multiplanar reformations. Oral contrast utilized. COMPARISON: None FINDINGS: Solid organ evaluation limited from lack of IV contrast. Lung bases are clear. No free intraperitoneal gas seen. Liver shows no significant abnormality. Normal-appearing biliary tree status-post cholecystectomy. Spleen shows no significant abnormality. Adrenal glands show no significant abnormality. Pancreas shows no significant abnormality. There are innumerable medullary renal calcifications bilaterally, likely related to medullary sponge kidney. In addition, there is a calcification at the left UPJ measuring 5.2 x 4.1 mm in axial cross-section, and 7.3 mm in craniocaudal dimension. Mild left hydronephrosis. Abdominal aorta is nonaneurysmal. The ovaries appear grossly unremarkable. No bowel obstruction. There are two supraumbilical fat-containing midline abdominal wall hernias. The more cephalad is quite small, the more caudad measures 4.6 x 3.2 cm in axial cross-section, with a defect in the abdominal wall musculature about 17 mm. Fat which is herniated, and fat just deep to the herniated fat appears inflamed. This may be incarcerated. Appendix not seen with certainty. IMPRESSION: 1. Multiple bilateral renal calculi compatible with medullary sponge kidney. Left UPJ calculus with mild left hydronephrosis. 2. Two midline supraumbilical abdominal wall fat-containing hernias, the more caudal of which the fat appears inflamed, could be incarcerated. Computed Tomography Report Report Dictated on --- Final --- Dictating Physician: MD LORA JOHN R Signed Date and Time: 12/01/2021 10:29 pm Signed by: MD LORA JOHN R Transcribed Date and Time: 12/01/2021 10:30 [facility] Reza Lora MD - 12/01/2021 Patient Name: KENIA ORTIZ Computed Tomography ACCESSION EXAM DATE/TIME PROCEDURE ORDERING PROVIDER [id number] 12/01/2021 22:[address] Abdomen/Pelvis (No MD BRADLEY, LINDEN PO, No IV) CPT code 98932 Reason For Exam (CT Abdomen/Pelvis (No PO, No IV)) left flank pain with po contrast Report CT ABDOMEN AND PELVIS WITHOUT CONTRAST CLINICAL INDICATION: left flank pain with po contrast TECHNIQUE: CT scan of the abdomen and pelvis without IV/oral contrast. Multiplanar reformations. Oral contrast utilized. COMPARISON: None FINDINGS: Solid organ evaluation limited from lack of IV contrast. Lung bases are clear. No free intraperitoneal gas seen. Liver shows no significant abnormality. Normal-appearing biliary tree status-post cholecystectomy. Spleen shows no significant abnormality. Adrenal glands show no significant abnormality. Pancreas shows no significant abnormality. There are innumerable medullary renal calcifications bilaterally, likely related to medullary sponge kidney. In addition, there is a calcification at the left UPJ measuring 5.2 x 4.1 mm in axial cross-section, and 7.3 mm in craniocaudal dimension. Mild left hydronephrosis. Abdominal aorta is nonaneurysmal. The ovaries appear grossly unremarkable. No bowel obstruction. There are two supraumbilical fat-containing midline abdominal wall hernias. The more cephalad is quite small, the more caudad measures 4.6 x 3.2 cm in axial cross-section, with a defect in the abdominal wall musculature about 17 mm. Fat which is herniated, and fat just deep to the herniated fat appears inflamed. This may be incarcerated. Appendix not seen with certainty. IMPRESSION: 1. Multiple bilateral renal calculi compatible with medullary sponge kidney. Left UPJ calculus with mild left hydronephrosis. 2. Two midline supraumbilical abdominal wall fat-containing hernias, the more caudal of which the fat appears inflamed, could be incarcerated. Computed Tomography Report Report Dictated on --- Final --- Dictating Physician: MD LORA JOHN R Signed Date and Time: 12/01/2021 10:29 pm Signed by: MD LORA JOHN R Transcribed Date and Time: 12/01/2021 10:30 [facility] Work Phone: Radiology Study observation (narrative) [facility] Work Phone: CT Abdomen Pelvis Wo Contras tOrdered By: Reza Lora on 12-01-2021 [facility] Work Phone: Complete Urinalysison 2021 Bacteria Few (1-5) Abnormal Negative [facility] Comment on above: Result Comment: . Performed By: #### H CGCORRIE, CUA2 #### [facility] [address] [place] [address] RBC LM.HPF (Urine sed) [#/Area] /[HPF] Abnormal 0-2 [facility] Comment on above: Result Comment: . Performed By: #### H CGCORRIE, CUA2 #### [facility] [address] [place] [address] Squamous Epithelial 3 - 5 Normal 3-5 [facility] Comment on above: Result Comment: . Performed By: #### H CGCORRIE, CUA2 #### [facility] [address] [place] [address] VOLUME, URINE 12 ml Normal [facility] Comment on above: Result Comment: . Performed By: #### H CGCORRIE, CUA2 #### [facility] [address] [place] [address] WBC, Urine 0 - 2 Normal 0-5 [facility] Comment on above: Result Comment: . Performed By: #### H CGCORRIE, CUA2 #### [facility] [address] [place] [address] Appearance (U) Turbid Abnormal Clear [facility] Comment on above: Result Comment: . Performed By: #### H CGCORRIE, CUA2 #### [facility] [address] [place] [address] Bilirubin,Urine Negative Normal Negative [facility] Comment on above: Result Comment: . Performed By: #### H CGCORRIE, CUA2 #### [facility] [address] [place] [address] Color (U) LIGHT ORANGE Abnormal Lt. Yellow [facility] Comment on above: Result Comment: . Performed By: #### H CGCORRIE, CUA2 #### [facility] [address] [place] [address] Glucose Ql (U) Normal Normal Normal (<70) [facility] Comment on above: Result Comment: . Performed By: #### H CGCORRIE, CUA2 #### [facility] [address] [place] [address] Ketone,Urine Negative Normal Negative [facility] Comment on above: Result Comment: . Performed By: #### H CGCORRIE, CUA2 #### [facility] [address] [place] [address] Leukocytes,Urine Negative Normal Negative [facility] Comment on above: Result Comment: . Performed By: #### H CGCORRIE, CUA2 #### [facility] [address] [place] [address] Nitrites,Urine Negative Normal Negative [facility] Comment on above: Result Comment: . Performed By: #### H CGCORRIE, CUA2 #### [facility] [address] [place] [address] Occult Blood,Urine > 1.0 Abnormal Negative [facility] Comment on above: Result Comment: . Performed By: #### H CGCORRIE, CUA2 #### [facility] [address] [place] [address] pH,Urine 7.0 Normal 5.0-8.0 [facility] Comment on above: Result Comment: . Performed By: #### H CGCORRIE, CUA2 #### [facility] [address] [place] [address] Protein (U) [Mass/Vol] 20 mg/dL Abnormal Negative [facility] Comment on above: Result Comment: . Performed By: #### H CGCORRIE, CUA2 #### [facility] [address] [place] [address] Specific Mccarley,Urine 1.015 Normal 1.005 - 1.030 [facility] Comment on above: Result Comment: . Performed By: #### H CGCORRIE, CUA2 #### [facility] [address] [place] [address] Urobilinogen,Urine Normal Normal Normal (0-1) [facility] Comment on above: Result Comment: . Performed By: #### H CGCORRIE, CUA2 #### [facility] [address] [place] [address] HCG,Urine Qualon 12-01-2021 Beta HCG ( test) Ql (U) Negative Normal Negative [facility] Comment on above: Result Comment: Plea se note: Very dilute urine specimens, as indicated by a low specific gravity, may not contain member services representative levels of hCG. If is still suspected, a first morning urine specimen should be collected 48 hours later and tested. is the most common reason for HCG in urine, although choriocarcinoma, hydatidiform mole, and certain nontropho- blastic malignancies also result in detectable urinary HCG levels. Sensitivity = 20mIU/mL. Performed By: #### H CGUR, CUA2 #### [facility] [address] [place], [place] [address] [place] [address] Urine Qual [place] 2021 Beta HCG ( test) Ql (U) Negative Negative NA [facility] Comment on above: Please note: Very di lute urine specimens, as indicated by a low specific gravity, may not contain member services representative levels of hCG. If is still suspected, a first morning urine specimen should be collected 48 hours later and tested. is the most common reason for HCG in urine, although choriocarcinoma, hydatidiform mole, and certain nontropho- blastic malignancies also result in detectable urinary HCG levels. Sensitivity = 20mIU/mL. Test Performed by [facility], [address] , [place], [place] [id number] [place] [address] [facility] Ur[facility]on 12-01-2021 Appearance (U) Turbid Abnormal Clear NA [facility] Comment on above: . Bacteria, UA Few (1-5) Abnormal Negative /[HPF] [facility] Comment on above: . Bilirubin Urine Negative Negative mg/dL [facility] Comment on above: . Color (U) LIGHT ORANGE Abnormal Lt. Yellow NA [facility] Comment on above: . Glucose, Ur Normal Normal (<70) mg/dL [facility] Comment on above: . Interpretation and review of laboratory results Abnormal [facility] Ketones Ql (U) Negative Negative mg/dL [facility] Comment on above: . LEUKOCYTES, UA Negative Negative Jonel/uL [facility] Comment on above: . Nitrite, Urine Negative Negative NA [facility] Comment on above: . Occult Blood,Urine >1.0 Abnormal Negative mg/dL [facility] Comment on above: . pH (U) 7.0 [pH] [facility] Comment on above: . Protein (U) [Mass/Vol] 20 mg/dL Abnormal Negative [facility] Comment on above: . RBC (U) [#/Vol] /uL Abnormal 0 - 2 /[HPF] [facility] Comment on above: . Specific Mccarley, Urine 1.015 S [facility] Comment on above: . Squam Epithel, UA 3-5 3 - 5 /[HPF] [facility] Comment on above: . Urobilinogen, Urine Normal Normal (0-1) mg/dL [facility] Comment on above: . Volume 12 ml [facility] Comment on above: . WBC, UA 0-2 0 - 5 /[HPF] [facility] Comment on above: . Test Performed by [facility], [address] [place] [address] [address] , [place], [place] [id number] [place] [address] LAB [facility] XR Hand - bilateral PA and L ateral and Obliqueon 07-18-2021 IMPRESSION: No acute process. Tree Trimmer: CAMMY Transcribe Date/Time: Jul 18 2021 11:56A Dictated by : SYLVIA BAXTER MD This examination was interpreted and the report reviewed and electronically signed by: SYLVIA BAXTER MD on Jul 18 2021 11:57AM [facility] DIVISION OF RADIOLOGY * * *Final Report* * * DATE OF EXAM: Jul 18 2021 11:54AM WOX [id number] - XR HAND 3V PA/LAT/OBL KEVON / PROCEDURE REASON: Carpal tunnel syndrome, bilateral * * * * Physician Interpretation * * * * EXAMINATION: XR HAND 3V PA/LAT/OBL KEVON HISTORY: Chronic diffuse bilateral hand pain increasing over time without injury. Carpal tunnel syndrome, bilateral. TECHNIQUE: XR HAND 3V PA/LAT/OBL KEVON Laterality: BILATERAL Number of different views (projections): 3 M: XB_1 COMPARISON: There are no prior relevant studies for comparison. RESULT: AP, oblique and lateral radiographs of the bilateral hands show no acute osseous, articular or soft tissue abnormality.. Joint spaces are preserved and there are no erosive or bony destructive changes. DIVISION OF RADIOLOGY Provider, [facility] Madhavi [facility] - 07/18/2021 * * *Final Report* * * DATE OF EXAM: Jul 18 2021 11:54AM WOX [id number] - XR HAND 3V PA/LAT/OBL KEVON / PROCEDURE REASON: Carpal tunnel syndrome, bilateral * * * * Physician Interpretation * * * * EXAMINATION: XR HAND 3V PA/LAT/OBL KEVON HISTORY: Chronic diffuse bilateral hand pain increasing over time without injury. Carpal tunnel syndrome, bilateral. TECHNIQUE: XR HAND 3V PA/LAT/OBL KEVON Laterality: BILATERAL Number of different views (projections): 3 M: XB_1 COMPARISON: There are no prior relevant studies for comparison. RESULT: AP, oblique and lateral radiographs of the bilateral hands show no acute osseous, articular or soft tissue abnormality.. Joint spaces are preserved and there are no erosive or bony destructive changes. IMPRESSION IMPRESSION: No acute process. Tree Trimmer: PSCB Transcribe Date/Time: Jul 18 2021 11:56A Dictated by : SYLVIA BAXTER MD This examination was interpreted and the report reviewed and electronically signed by: SYLVIA BAXTER MD on Jul 18 2021 11:57AM [facility] Radiology Study observation (narrative) [facility] XR Hand - bilateral PA and L ateral and ObliqueOrdered By: Ccf Provider on 07-18-2021 [facility] XR Chest PA and Lateralon IMPRESSION: No acute radiographic abnormality. Tree Trimmer: PSCB Transcribe Date/Time: Mar 22 2021 12:39P Dictated by : POLLY GRAVES MD This examination was interpreted and the report reviewed and electronically signed by: POLLY GRAVES MD on Mar 22 2021 12:39PM [facility] DIVISION OF RADIOLOGY * * *Final Report* * * DATE OF EXAM: Mar 22 2021 12:29PM WOX [id number] - XR CHEST 2V FRONTAL/LAT / PROCEDURE REASON: multiple diagnoses * * * * Physician Interpretation * * * * EXAMINATION: CHEST RADIOGRAPH (2 VIEW FRONTAL & LATERAL) CLINICAL HISTORY: Chronic cough Tobacco use disorder MQ: XC2_6 EXAM DATE/TIME: 03/22/2021 12:29 PM COMPARISON: Chest x-ray on 10/20/2019 RESULT: Lines, tubes, and devices: None. Lungs and pleura: No consolidation. No lung mass. No pleural effusion. No pneumothorax. Cardiomediastinal silhouette: Normal cardiomediastinal silhouette. Bones and soft tissues: Unremarkable. DIVISION OF RADIOLOGY Provider, [facility] - 03/22/2021 * * *Final Report* * * DATE OF EXAM: Mar 22 2021 12:29PM WOX [id number] - XR CHEST 2V FRONTAL/LAT / PROCEDURE REASON: multiple diagnoses * * * * Physician Interpretation * * * * EXAMINATION: CHEST RADIOGRAPH (2 VIEW FRONTAL & LATERAL) CLINICAL HISTORY: Chronic cough Tobacco use disorder MQ: XC2_6 EXAM DATE/TIME: 03/22/2021 12:29 PM COMPARISON: Chest x-ray on 10/20/2019 RESULT: Lines, tubes, and devices: None. Lungs and pleura: No consolidation. No lung mass. No pleural effusion. No pneumothorax. Cardiomediastinal silhouette: Normal cardiomediastinal silhouette. Bones and soft tissues: Unremarkable. IMPRESSION IMPRESSION: No acute radiographic abnormality. Tree Trimmer: CAMMY Transcribe Date/Time: Mar 22 2021 12:39P Dictated by : POLLY GRAVES MD This examination was interpreted and the report reviewed and electronically signed by: POLLY GRAVES MD on Mar 22 2021 12:39PM EST [facility] Radiology Study observation (narrative) [facility] XR Chest PA and LateralOrder ed By: Ccf Provider on 03-22-2021 [facility] Chlamydia/GC DNA, Uron 05-16 Chlamydia Probe, Ur Negative Normal NEG [facility] Comment on above: Result Comment: CHLA MYDIA TRACHOMATIS DNA not detected by nucleic acid amplification. Performed By: #### U CGP ####[address] [place] [address] Gonorrhea Probe, Ur Negative Normal NEG [facility] Comment on above: Result Comment: NEIS SERIA GONORRHOEAE DNA not detected by nucleic acid amplification.Performed at [address] [place] [address] Performed By: #### U CGP ####[facility] [place] [address] Cult,Urine,CCon 05-16-2017 Cult,Urine,CC Specimen Description .URINE Performed at [facility] [address] [place] [address] ([phone] Special Requests NOT REPORTEDCulture NO SIGNIFICANT GROWTH Performed at [address] [address] Report Status FINAL 05/16/2017 Normal [facility] Comment on above: Performed By: #### C JORDAN ####[address] [address] [facility], [place] [id number] HIV Ag/Abon 05-16-2017 HIV Ag/Ab NONREACTIVE Normal NR [facility] Comment on above: Result Comment: No l aboratory evidence of HIV infection. If acute HIV infection is suspected, consider testing for HIV-1 RNA.This is an FDA approved immunoassay that detects HIV-1 and HIV-2 antibodies and HIV-1 p24 antigen to screen for infection with HIV-1 or HIV-2.Performed at [address] [address] Performed By: #### H IVCMB, AHCV ####[address] [address] Hep C Abon 05-16-2017 Hep C Ab NONREACTIVE Normal NR [facility] Comment on above: Result Comment: The hepatitis C procedure used in our laboratory is a Chemiluminescent test specific for three recombinant HCV antigens. A negative anti-HCV result indicates that the antibodies to hepatitis C virus are not present at this time.Individuals with reactive anti-HCV should be considered infected and infectious until proven otherwise. Confirmation of all equivocal or reactive results is recommended by ordering HCV RNA by PCR.Performed at [address] [address] Performed By: #### H IVCMB, AHCV ####[address] [address] Profileon 7 T.pallidum Ab Screen NONREACTIVE Normal NR [facility] Comment on above: Result Comment: T. p allidum antibodies are not detected.There is no serological evidence of infection with T. pallidum (early primary syphilis cannot be excluded). Retest in 2-4 weeks if syphilis is clinically suspect.Performed at [address] [address] Performed By: #### P RENAT ####[address] [phone] [address] [address] Rubella Ab, IgG <0.2 Normal [facility] Comment on above: Result Comment: REFE RENCE RANGE:<5.0 NON-REACTIVE (non-immune)5.0 TO 9.9 EQUIVOCAL>=10.0 REACTIVE (immune)NOTE: NEW REFERENCE RANGEPerformed at [address] [address] Performed By: #### P RENAT ####[address] [phone] [address] [address] Hep B Surf Ag NONREACTIVE Normal NR [facility] Comment on above: Result Comment: Perf ormed at [address] [address] Performed By: #### P RENAT ####[address] [phone] [address] [address] US OB LESS THAN 14 WKS SINGL E OR FIRST GESTATIONon 05-15-2017 US OB LESS THAN 14 WKS SINGLE OR FIRST GESTATION TECHNIQUE: First trimester ultrasound, less than 14 weeks.CLINICAL HISTORY: Supervision of normal .COMPARISON: No comparison.FINDINGS: Transabdominal ultrasound shows a single live intrauterine fetus with a crown-rump length of 3.4 cm which corresponds to 10 weeks 2 days gestational age and yields a sonographic predicted EDC of 12/09/2017 +/- 6 days.The amniotic fluid volume is normal. The placenta is forming anteriorly. The uterus and adnexa are normal. No free fluid. The cardiac rate of the fetus is 178 bpm.A small yolk sac remains visible.Uterus: 12.2 cm in length x 7 x 8 cm.Right ovary: 3.8 x 2.0 x 2.9 cm.Left ovary: 2.9 x 2.4 x 2.9 cm.IMPRESSION: Single live intrauterine fetus with estimated gestational age based on the crown-rump length of 10 weeks 2 days. This gives a sonographic predicted EDC of 12/09/2017 +/- 6 days.Interpreted by:ROBERTO Rendon Jr.igned by:Weston Mallory Jr., MD05/15/17Final result Normal [facility] Profileon 7 Abs. Basophil 0.00 k/uL Normal 0.0-0.2 [facility] Comment on above: Result Comment: Perf ormed at [facility] [address] [place], [place] [phone] Performed By: #### P RENAT ####[address] [phone] [place], [place] [phone] Abs.Neutrophil (Seg) 9.40 k/uL High 2.5-7.0 [facility] Comment on above: Result Comment: Perf ormed at [facility] [address] [place], [place] [phone] Performed By: #### P RENAT ####[facility] [address] [place] [address] [phone] [place] [address] Auto Diff Performed YES Normal [facility] Comment on above: Result Comment: Perf ormed at [facility] [address] [place] [address] Performed By: #### P RENAT ####[facility] [address] [place] [address] [phone] [place] [phone] Basophils/100 WBC Auto (Bld) 0 % Normal [facility] Comment on above: Result Comment: Perf ormed at [facility] [address] [place] [place] [address] Performed By: #### P RENAT ####[address] [address] [facility] [place] [place] [address] Eosinophils 0.10 10*3/uL Normal 0.0-0.4 [facility] Comment on above: Result Comment: Perf ormed at [facility] [address] [place] [address] Performed By: #### P RENAT ####[address] [address] [facility] [place] [address] Eosinophils/100 leukocytes 1 % Normal [facility] Comment on above: Result Comment: Perf ormed at [facility] [address] [place] [address] Performed By: #### P RENAT ####[address] [address] [facility] [place] [address] Erythrocyte distribution width Auto Ratio (RBC) 13.3 % Normal 12.1-15.2 [facility] Comment on above: Result Comment: Perf ormed at [facility] [address] [place] [address] Performed By: #### P RENAT ####[address] [address] [facility] [place] [address] Erythrocytes (RBC) 4.61 10*6/uL Normal 4.0-5.2 [facility] Comment on above: Result Comment: Perf ormed at [facility] [address] [place] [place] [address] Performed By: #### P RENAT ####[address] [address] [facility] [facility] [address] Hematocrit (HCT) 42.8 % Normal 36-46 [facility] Comment on above: Result Comment: Perf ormed at [facility] [address] [facility] [place] [address] Performed By: #### P RENAT ####[address] [address] [facility] [facility] [address] Hemoglobin mass conc (Bld) 14.2 g/dL Normal 12.0-16.0 [facility] Comment on above: Result Comment: Perf ormed at [facility] [address] [facility] [place] [address] Performed By: #### P RENAT ####[address] [address] [facility] [facility] [address] Lymphocytes 2.30 10*3/uL Normal 1.1-2.7 [facility] Comment on above: Result Comment: Perf ormed at [facility] [address] [place] [address] Performed By: #### P RENAT ####[address] [address] [facility] [facility] [address] Lymphocytes/100 leukocytes 19 % Normal [facility] Comment on above: Result Comment: Perf ormed at [facility] [address] [place] [place] [address] Performed By: #### P RENAT ####[address] [place] [address] [facility] [place] [address] MCH 30.8 pg Normal 26-34 [facility] Comment on above: Result Comment: Perf ormed at [facility] [address] [facility] [place] [address] Performed By: #### P RENAT ####[address] [address] [facility] [place] [address] MCHC mass conc (RBC) 33.2 g/dL Normal 31-37 [facility] Comment on above: Result Comment: Perf ormed at [facility] [address] [place] [address] Performed By: #### P RENAT ####[address] [address] [facility] [place] [phone] MCV 92.7 fL Normal 80-100 [facility] Comment on above: Result Comment: Perf ormed at [facility] [address] [place] [address] Performed By: #### P RENAT ####[address] [phone] [place] [phone] Monocytes 0.60 10*3/uL Normal 0.0-1.0 [facility] Comment on above: Result Comment: Perf ormed at [facility] [address] [place] [address] Performed By: #### P RENAT ####[facility] [address] [place] [address] [facility] [facility] [place] [address] Monocytes/100 leukocytes 5 % Normal [facility] Comment on above: Result Comment: Perf ormed at [facility] [address] [facility] [place] [address] Performed By: #### P RENAT ####[address] [address] [facility] [facility] [place] [address] Neutrophil (Seg) 75 % Normal [facility] Comment on above: Result Comment: Perf ormed at [facility] [address] [facility] [place] [address] Performed By: #### P RENAT ####[address] [phone] [facility] [place] [address] Platelets 253 10*3/uL Normal 140-450 [facility] Comment on above: Result Comment: Perf ormed at [facility] [address] [facility] [place] [address] Performed By: #### P RENAT ####[address] [address] [facility] [facility] [place] [address] WBC (Leukocytes) 12.4 10*3/uL High 3.5-11.0 [facility] Comment on above: Result Comment: Perf ormed at [facility] [address] [facility] [place] [address] Performed By: #### P RENAT ####[address] [address] [facility] [place] [address] Erythrocyte morphology NOT REPORTED Normal [facility] Comment on above: Performed By: #### P RENAT ####[address] [address] [facility] [place] [address] Platelet mean volume (PMV) NOT REPORTED Normal 6.0-12.0 [facility] Comment on above: Performed By: #### P RENAT ####[address] [address] [facility] [place] [address] Platelets NOT REPORTED Normal [facility] Comment on above: Performed By: #### P RENAT ####[address] [address] [facility] [place] [address] WBC Morphology NOT REPORTED Normal [facility] Comment on above: Performed By: #### P RENAT ####[address] [address] [facility] [place] [address] Type + Scrnon 05-14 Type + Scrn ABO/Rh(D) AB POSITI VE Antibody Screen NEGATIVE Performed at [facility] [address] [place] [address] Normal [facility] Comment on above: Performed By: #### P RTYS ####[address] [address] Toxicology Scree, Urineon Amphetamine(s),Ur Negative Normal NEG [facility] Comment on above: Result Comment: (Pos itive cutoff 500 ng/mL) Performed By: #### C PDAU ####[place] [address] [place] [address] Barbiturate(s),Ur Negative Normal NEG [facility] Comment on above: Result Comment: (Pos itive cutoff 200 ng/mL) Performed By: #### C PDAU ####[facility] [phone] Base excess Negative Normal NEG [facility] Comment on above: Result Comment: (Pos itive cutoff 150 ng/mL) Performed By: #### C PDAU ####[facility] [phone] Benzodiazepine(s) Negative Normal NEG [facility] Comment on above: Result Comment: (Pos itive cutoff 150 ng/mL) Performed By: #### C PDAU ####[place] [address] [facility] [place] [address] Cannabinoid(s),Ur Positive Abnormal NEG [facility] Comment on above: Result Comment: (Pos itive cutoff 50 ng/mL) Performed By: #### C PDAU ####[place] [address] [facility] [place] [address] Methamphetamine, Ur Negative Normal NEG [facility] Comment on above: Result Comment: (Pos itive cutoff 500 ng/mL) Performed By: #### C PDAU ####[facility] [place] [address] Opiate(s), Ur Negative Normal NEG [facility] Comment on above: Result Comment: (Pos itive cutoff 100 ng/mL) Performed By: #### C PDAU ####[place] [address] [place] [address] Oxycodone, Urine Negative Normal NEG [facility] Comment on above: Result Comment: (Pos itive cutoff 100 ng/mL) Performed By: #### C PDAU ####[place] [address] [place] [address] Phencyclidine, Ur Negative Normal NEG [facility] Comment on above: Result Comment: (Pos itive cutoff 25 ng/mL) Performed By: #### C PDAU ####[facility] [facility] [place] [address] Propoxyphene,Urine Negative Normal NEG [facility] Comment on above: Result Comment: (Pos itive cutoff 300 ng/mL) Performed By: #### C PDAU ####[facility] [place] [address] Urine, methadone presence Negative Normal NEG [facility] Comment on above: Result Comment: (Pos itive cutoff 200 ng/mL) Performed By: #### C PDAU ####[facility] [place] [address] Urine, tricyclic antidepressants Negative Normal NEG [facility] Comment on above: Result Comment: (Pos itive cutoff 300 ng/mL)Drug screen results are to be used for medical purposes only. All positive results are unconfirmed. Testing for employment or legal uses should be sent to a reference laboratory for confirmation.Performed at [facility] [address] [facility] [place] [address] Performed By: #### C PDAU ####[facility] [facility] [place] [address] Buprenorphrine, Ur NOT REPORTED Normal NEG [facility] Comment on above: Performed By: #### C PDAU ####[facility] [facility] [place] [address] Interpretive Info NOT REPORTED Normal [facility] Comment on above: Performed By: #### C PDAU ####[facility] [place] [address] MDMA, Urine NOT REPORTED Normal NEG [facility] Comment on above: Performed By: #### C PDAU ####[facility] [place] [id number] [place] [address] Vital Signs Date Time Vital Sign Value Performing Clinician Facility 03-03-2025 10:45-0400 Body temperature 97.8 [degF] No Primary Care Physician [facility] 03-03-2025 10:45-0400 Diastolic blood pressure 87 mm[Hg] No Primary Care Physician [facility] 03-03-2025 10:45-0400 Heart rate 68 /min No Primary Care Physician [facility] 03-03-2025 10:45-0400 Respiratory rate 18 /min No Primary Care Physician [facility] 03-03-2025 10:45-0400 SaO2% (BldA) [Mass fraction] 100 % No Primary Care Physician [facility] 03-03-2025 10:45-0400 Systolic blood pressure 145 mm[Hg] No Primary Care Physician [facility] 03-03-2025 07:51-0400 Body height 165.1 cm No Primary Care Physician [facility] 03-03-2025 07:51-0400 Body mass index (BMI) [Ratio] 34.2 kg/m2 No Primary Care Physician [facility] 03-03-2025 07:51-0400 Body weight 93.2 kg No Primary Care Physician [facility] 09-07-2024 00:02-0500 Body temperature 99.5 [degF] Dr. Jane Raymundo DO Work Phone: [facility] 09-07-2024 00:02-0500 Diastolic blood pressure 96 mm[Hg] Dr. Jane Raymundo DO Work Phone: [facility] 09-07-2024 00:02-0500 Heart rate 98 /min Dr. Jane Raymundo DO Work Phone: [facility] 09-07-2024 00:02-0500 Respiratory rate 18 /min Dr. Jane Raymundo DO Work Phone: [facility] 09-07-2024 00:02-0500 SaO2% (BldA) [Mass fraction] 96 % Dr. Jane Raymundo DO Work Phone: [facility] 09-07-2024 00:02-0500 Systolic blood pressure 148 mm[Hg] Dr. Jane Raymundo DO Work Phone: [facility] 09-06-2024 20:22-0500 Body height 162.[address] Jane Raymundo DO Work Phone: [facility] 09-06-2024 20:22-0500 Body mass index (BMI) [Ratio] 40.4 kg/m2 Dr. Jane Raymundo DO Work Phone: [facility] 09-06-2024 20:22-0500 Body weight 106.[address] Jane Raymundo DO Work Phone: [facility] 06-21-2024 13:37-0400 Body mass index (BMI) [Ratio] 39.39 kg/m2 Damaso Minerva DEVELOPMENT ADVISOR.ASSIGNMENT CLERK Work Phone: [facility] 06-21-2024 13:37-0400 Body temperature 98.8 [degF] Damaso Meloreina DEVELOPMENT ADVISOR.ASSIGNMENT CLERK Work Phone: [facility] 06-21-2024 13:37-0400 Body weight 106.7 kg Damaso Meloreina DEVELOPMENT ADVISOR.ASSIGNMENT CLERK Work Phone: [facility] 06-21-2024 13:37-0400 Diastolic blood pressure 80 mm[Hg] Damaso Pendlereina DEVELOPMENT ADVISOR.ASSIGNMENT CLERK Work Phone: [facility] 06-21-2024 13:37-0400 Heart rate 96 /min Damaso Minerva DEVELOPMENT ADVISOR.ASSIGNMENT CLERK Work Phone: [facility] 06-21-2024 13:37-0400 Respiratory rate 16 /min Damaso Pendlereina DEVELOPMENT ADVISOR.ASSIGNMENT CLERK Work Phone: [facility] 06-21-2024 13:37-0400 SaO2% (BldA) [Mass fraction] 98 % Damaso Pendleerina DEVELOPMENT ADVISOR.ASSIGNMENT CLERK Work Phone: [facility] 06-21-2024 13:37-0400 Systolic blood pressure 128 mm[Hg] Damaso Palma DEVELOPMENT ADVISOR.ASSIGNMENT CLERK Work Phone: [facility] 2024 14:04-0400 Body mass index (BMI) [Ratio] 39.57 kg/m2 Leticia Bridenthal DEVELOPMENT ADVISOR - ASSIGNMENT CLERK Work Phone: [facility] 2024 14:04-0400 Body temperature 98.6 [degF] Leticia Bridenthal DEVELOPMENT ADVISOR - ASSIGNMENT CLERK Work Phone: [facility] 2024 14:04-0400 Body weight 107.86 kg Leticia Bridenthal DEVELOPMENT ADVISOR - ASSIGNMENT CLERK Work Phone: [facility] 2024 14:04-0400 Diastolic blood pressure 73 mm[Hg] Leticia Bridenthal DEVELOPMENT ADVISOR - ASSIGNMENT CLERK Work Phone: [facility] 2024 14:04-0400 Heart rate 100 /min Leticia Bridenthal DEVELOPMENT ADVISOR - ASSIGNMENT CLERK Work Phone: [facility] 2024 14:04-0400 Respiratory rate 18 /min Leticia Bridenthal DEVELOPMENT ADVISOR - ASSIGNMENT CLERK Work Phone: [facility] 2024 14:04-0400 SaO2% (BldA) [Mass fraction] 95 % Leticia Bridenthal DEVELOPMENT ADVISOR - ASSIGNMENT CLERK Work Phone: [facility] 2024 14:04-0400 Systolic blood pressure 106 mm[Hg] Leticia Bridenthal DEVELOPMENT ADVISOR - ASSIGNMENT CLERK Work Phone: [facility] 03-13-2024 16:56-0400 Body temperature 99.14 [degF] ANKITA PATRICK DO [facility] 03-13-2024 16:56-0400 Body weight 109.9 kg ANKITA PATRICK DO [facility] 03-13-2024 16:56-0400 Diastolic Blood Pressure Non-Invasive 82 mm[Hg] ANKITA CENTENOT DO [facility] 03-13-2024 16:56-0400 Heart rate 105 /min ANKITA PATRICK DO [facility] 03-13-2024 16:56-0400 Respiratory rate 20 /min ANKITA PATRICK DO [facility] 03-13-2024 16:56-0400 Systolic Blood Pressure Non-Invasive 122 mm[Hg] ANKITA PATRICK DO [facility] 02-13-2024 10:20-0400 Diastolic blood pressure 87 mm[Hg] Leticia Bridenthal DEVELOPMENT ADVISOR - ASSIGNMENT CLERK Work Phone: [facility] 02-13-2024 10:20-0400 Heart rate 89 /min Leticia Bridenthal DEVELOPMENT ADVISOR - ASSIGNMENT CLERK Work Phone: [facility] 02-13-2024 10:20-0400 Systolic blood pressure 130 mm[Hg] Leticia Bridenthal DEVELOPMENT ADVISOR - ASSIGNMENT CLERK Work Phone: [facility] 02-13-2024 09:48-0400 Body height 165.1 cm Leticia Bridenthal DEVELOPMENT ADVISOR - ASSIGNMENT CLERK Work Phone: [facility] 02-13-2024 09:48-0400 Body mass index (BMI) [Ratio] 39.44 kg/m2 Leticia Bridenthal DEVELOPMENT ADVISOR - ASSIGNMENT CLERK Work Phone: [facility] 02-13-2024 09:48-0400 Body weight 107.5 kg Leticia Bridenthal DEVELOPMENT ADVISOR - ASSIGNMENT CLERK Work Phone: [facility] 02-13-2024 09:48-0400 SaO2% (BldA) [Mass fraction] 98 % Leticia Bridenthal DEVELOPMENT ADVISOR - ASSIGNMENT CLERK Work Phone: [facility] 02-06-2024 09:21-0400 Diastolic blood pressure 99 mm[Hg] Leticia Bridenthal DEVELOPMENT ADVISOR - ASSIGNMENT CLERK Work Phone: [facility] 02-06-2024 09:21-0400 Heart rate 99 /min Leticia Bridenthal DEVELOPMENT ADVISOR - ASSIGNMENT CLERK Work Phone: [facility] 02-06-2024 09:21-0400 Systolic blood pressure 136 mm[Hg] Leticia Bridenthal DEVELOPMENT ADVISOR - ASSIGNMENT CLERK Work Phone: [facility] 02-06-2024 09:08-0400 Body mass index (BMI) [Ratio] 40.1 kg/m2 Leticia Bridenthal DEVELOPMENT ADVISOR - ASSIGNMENT CLERK Work Phone: [facility] 02-06-2024 09:08-0400 Body temperature 98.6 [degF] Leticia Bridenthal DEVELOPMENT ADVISOR - ASSIGNMENT CLERK Work Phone: [facility] 02-06-2024 09:08-0400 Body weight 109.32 kg Leticia Bridenthal DEVELOPMENT ADVISOR - ASSIGNMENT CLERK Work Phone: [facility] 02-06-2024 09:08-0400 Respiratory rate 20 /min Leticia Bridenthal DEVELOPMENT ADVISOR - ASSIGNMENT CLERK Work Phone: [facility] 02-06-2024 09:08-0400 SaO2% (BldA) [Mass fraction] 97 % Leticia Bridenthal DEVELOPMENT ADVISOR - ASSIGNMENT CLERK Work Phone: [facility] 01-28-2024 14:12-0400 Diastolic blood pressure 98 mm[Hg] Leticia Bridenthal DEVELOPMENT ADVISOR - ASSIGNMENT CLERK Work Phone: [facility] 01-28-2024 14:12-0400 Systolic blood pressure 147 mm[Hg] Leticia Bridenthal DEVELOPMENT ADVISOR - ASSIGNMENT CLERK Work Phone: [facility] 01-28-2024 13:58-0400 Body mass index (BMI) [Ratio] 39.94 kg/m2 Leticia Bridenthal DEVELOPMENT ADVISOR - ASSIGNMENT CLERK Work Phone: [facility] 01-28-2024 13:58-0400 Body temperature 97.7 [degF] Leticia Bridenthal DEVELOPMENT ADVISOR - ASSIGNMENT CLERK Work Phone: [facility] 01-28-2024 13:58-0400 Body weight 108.86 kg Leticia Bridenthal DEVELOPMENT ADVISOR - ASSIGNMENT CLERK Work Phone: [facility] 01-28-2024 13:58-0400 Heart rate 92 /min Leticia Bridenthal DEVELOPMENT ADVISOR - ASSIGNMENT CLERK Work Phone: [facility] 01-28-2024 13:58-0400 Respiratory rate 16 /min Leticia Bridenthal DEVELOPMENT ADVISOR - ASSIGNMENT CLERK Work Phone: [facility] 01-28-2024 13:58-0400 SaO2% (BldA) [Mass fraction] 97 % Leticia Bridenthal DEVELOPMENT ADVISOR - ASSIGNMENT CLERK Work Phone: [facility] 01-15-2024 14:14-0400 Diastolic blood pressure 94 mm[Hg] Leticia Bridenthal DEVELOPMENT ADVISOR - ASSIGNMENT CLERK Work Phone: [facility] 01-15-2024 14:14-0400 Heart rate 110 /min Leticia Bridenthal DEVELOPMENT ADVISOR - ASSIGNMENT CLERK Work Phone: [facility] 01-15-2024 14:14-0400 Systolic blood pressure 145 mm[Hg] Leticia Bridenthal DEVELOPMENT ADVISOR - ASSIGNMENT CLERK Work Phone: [facility] 01-15-2024 13:51-0400 Body mass index (BMI) [Ratio] 39.11 kg/m2 Leticia Bridenthal DEVELOPMENT ADVISOR - ASSIGNMENT CLERK Work Phone: [facility] 01-15-2024 13:51-0400 Body temperature 97.11 [degF] Leticia Bridenthal DEVELOPMENT ADVISOR - ASSIGNMENT CLERK Work Phone: [facility] 01-15-2024 13:51-0400 Body weight 106.59 kg Leticia Bridenthal DEVELOPMENT ADVISOR - ASSIGNMENT CLERK Work Phone: [facility] 01-15-2024 13:51-0400 Respiratory rate 16 /min Leticia Bridenthal DEVELOPMENT ADVISOR - ASSIGNMENT CLERK Work Phone: [facility] 01-15-2024 13:51-0400 SaO2% (BldA) [Mass fraction] 97 % Leticia Bridenthal DEVELOPMENT ADVISOR - ASSIGNMENT CLERK Work Phone: [facility] 01-01-2024 14:11-0400 Diastolic blood pressure 96 mm[Hg] Leticia Bridenthal DEVELOPMENT ADVISOR - ASSIGNMENT CLERK Work Phone: [facility] 01-01-2024 14:11-0400 Heart rate 98 /min Leticia Bridenthal DEVELOPMENT ADVISOR - ASSIGNMENT CLERK Work Phone: [facility] 01-01-2024 14:11-0400 Systolic blood pressure 147 mm[Hg] Leticia Bridenthal DEVELOPMENT ADVISOR - ASSIGNMENT CLERK Work Phone: [facility] 01-01-2024 13:58-0400 Body mass index (BMI) [Ratio] 39.94 kg/m2 Leticia Bridenthal DEVELOPMENT ADVISOR - ASSIGNMENT CLERK Work Phone: [facility] 01-01-2024 13:58-0400 Body temperature 98.6 [degF] Leticia Bridenthal DEVELOPMENT ADVISOR - ASSIGNMENT CLERK Work Phone: [facility] 01-01-2024 13:58-0400 Body weight 108.86 kg Leticia Rahulenthal DEVELOPMENT ADVISOR - ASSIGNMENT CLERK Work Phone: [facility] 01-01-2024 13:58-0400 Respiratory rate 18 /min Leticia Bridenthal DEVELOPMENT ADVISOR - ASSIGNMENT CLERK Work Phone: [facility] 01-01-2024 13:58-0400 SaO2% (BldA) [Mass fraction] 97 % Leticia Bridenthal DEVELOPMENT ADVISOR - ASSIGNMENT CLERK Work Phone: [facility] 12-25-2023 15:50-0400 Diastolic blood pressure 108 mm[Hg] Leticia Bridenthal DEVELOPMENT ADVISOR - ASSIGNMENT CLERK Work Phone: [facility] 12-25-2023 15:50-0400 Heart rate 103 /min Leticia Rahulenthal DEVELOPMENT ADVISOR - ASSIGNMENT CLERK Work Phone: [facility] 12-25-2023 15:50-0400 Systolic blood pressure 175 mm[Hg] Leticia Bridenthal DEVELOPMENT ADVISOR - ASSIGNMENT CLERK Work Phone: [facility] 12-25-2023 15:03-0400 Body mass index (BMI) [Ratio] 39.44 kg/m2 Leticia Bridenthal DEVELOPMENT ADVISOR - ASSIGNMENT CLERK Work Phone: [facility] 12-25-2023 15:03-0400 Body temperature 98.91 [degF] Leticia Bridenthal DEVELOPMENT ADVISOR - ASSIGNMENT CLERK Work Phone: [facility] 12-25-2023 15:03-0400 Body weight 107.5 kg Leticia Bridenthal DEVELOPMENT ADVISOR - ASSIGNMENT CLERK Work Phone: [facility] 12-25-2023 15:03-0400 Respiratory rate 14 /min Leticia Bridenthal DEVELOPMENT ADVISOR - ASSIGNMENT CLERK Work Phone: [facility] 12-25-2023 15:03-0400 SaO2% (BldA) [Mass fraction] 95 % Leticia Bridenthal DEVELOPMENT ADVISOR - ASSIGNMENT CLERK Work Phone: [facility] 09-26-2023 13:21-0500 Body mass index (BMI) [Ratio] 33.78 kg/m2 Leticia Bridenthal DEVELOPMENT ADVISOR - ASSIGNMENT CLERK Work Phone: [facility] 09-26-2023 13:21-0500 Body temperature 98.71 [degF] Leticia Bridenthal DEVELOPMENT ADVISOR - ASSIGNMENT CLERK Work Phone: [facility] 09-26-2023 13:21-0500 Body weight 92.08 kg Leticia Bridenthal DEVELOPMENT ADVISOR - ASSIGNMENT CLERK Work Phone: [facility] 09-26-2023 13:21-0500 Diastolic blood pressure 78 mm[Hg] Leticia Bridenthal DEVELOPMENT ADVISOR - ASSIGNMENT CLERK Work Phone: [facility] 09-26-2023 13:21-0500 Heart rate 92 /min Leticia Bridenthal DEVELOPMENT ADVISOR - ASSIGNMENT CLERK Work Phone: [facility] 09-26-2023 13:21-0500 Respiratory rate 16 /min Leticia Bridenthal DEVELOPMENT ADVISOR - ASSIGNMENT CLERK Work Phone: [facility] 09-26-2023 13:21-0500 SaO2% (BldA) [Mass fraction] 97 % Leticia Bridenthal DEVELOPMENT ADVISOR - ASSIGNMENT CLERK Work Phone: [facility] 09-26-2023 13:21-0500 Systolic blood pressure 117 mm[Hg] Leticia Bridenthal DEVELOPMENT ADVISOR - ASSIGNMENT CLERK Work Phone: [facility] 09-04-2023 10:30-0500 Diastolic blood pressure 102 mm[Hg] Leticia Bridenthal DEVELOPMENT ADVISOR - ASSIGNMENT CLERK Work Phone: [facility] 09-04-2023 10:30-0500 Systolic blood pressure 150 mm[Hg] Leticia Bridenthal DEVELOPMENT ADVISOR - ASSIGNMENT CLERK Work Phone: [facility] 09-04-2023 09:58-0500 Body mass index (BMI) [Ratio] 33.95 kg/m2 Leticia Bridenthal DEVELOPMENT ADVISOR - ASSIGNMENT CLERK Work Phone: [facility] 09-04-2023 09:58-0500 Body temperature 98.71 [degF] Leticia Bridenthal DEVELOPMENT ADVISOR - ASSIGNMENT CLERK Work Phone: [facility] 09-04-2023 09:58-0500 Body weight 92.53 kg Leticia Bridenthal DEVELOPMENT ADVISOR - ASSIGNMENT CLERK Work Phone: [facility] 09-04-2023 09:58-0500 Heart rate 124 /min Leticia Bridenthal DEVELOPMENT ADVISOR - ASSIGNMENT CLERK Work Phone: [facility] 09-04-2023 09:58-0500 Respiratory rate 16 /min Leticia Bridenthal DEVELOPMENT ADVISOR - ASSIGNMENT CLERK Work Phone: [facility] 09-04-2023 09:58-0500 SaO2% (BldA) [Mass fraction] 100 % Leticia Bridenthal DEVELOPMENT ADVISOR - ASSIGNMENT CLERK Work Phone: [facility] 08-30-2023 10:22-0500 Diastolic blood pressure 97 mm[Hg] Shalonda Nicole MD Work Phone: [facility] 08-30-2023 10:22-0500 Heart rate 82 /min Shalonda Nicole MD Work Phone: [facility] 08-30-2023 10:22-0500 Respiratory rate 18 /min Shalonda Nicole MD Work Phone: [facility] 08-30-2023 10:22-0500 SaO2% (BldA) [Mass fraction] 98 % Shalonda Nicole MD Work Phone: [facility] 08-30-2023 10:22-0500 Systolic blood pressure 143 mm[Hg] Shalonda Nicole MD Work Phone: [facility] 08-30-2023 08:07-0500 Body mass index (BMI) [Ratio] 33.28 kg/m2 Shalonda Nicole MD Work Phone: [facility] 08-30-2023 08:07-0500 Body temperature 98.6 [degF] Shalonda Nicole MD Work Phone: [facility] 08-30-2023 08:07-0500 Body weight 90.72 kg Shalonda Nicole MD Work Phone: [facility] 07-09-2023 13:54-0400 Diastolic blood pressure 90 mm[Hg] Leticia Bridenthal DEVELOPMENT ADVISOR - ASSIGNMENT CLERK Work Phone: [facility] 07-09-2023 13:54-0400 Heart rate 98 /min Leticia Bridenthal DEVELOPMENT ADVISOR - ASSIGNMENT CLERK Work Phone: [facility] 07-09-2023 13:54-0400 Systolic blood pressure 130 mm[Hg] Leticia Bridenthal DEVELOPMENT ADVISOR - ASSIGNMENT CLERK Work Phone: [facility] 07-09-2023 13:13-0400 Body mass index (BMI) [Ratio] 32.95 kg/m2 Leticia Bridenthal DEVELOPMENT ADVISOR - ASSIGNMENT CLERK Work Phone: [facility] 07-09-2023 13:13-0400 Body temperature 97.9 [degF] Leticia Bridenthal DEVELOPMENT ADVISOR - ASSIGNMENT CLERK Work Phone: [facility] 07-09-2023 13:13-0400 Body weight 89.81 kg Leticia Bridenthal DEVELOPMENT ADVISOR - ASSIGNMENT CLERK Work Phone: [facility] 07-09-2023 13:13-0400 Respiratory rate 20 /min Leticia Bridenthal DEVELOPMENT ADVISOR - ASSIGNMENT CLERK Work Phone: [facility] 07-09-2023 13:13-0400 SaO2% (BldA) [Mass fraction] 99 % Leticia Bridenthal DEVELOPMENT ADVISOR - ASSIGNMENT CLERK Work Phone: [facility] 07-02-2023 11:34-0400 Diastolic blood pressure 113 mm[Hg] Leticia Bridenthal DEVELOPMENT ADVISOR - ASSIGNMENT CLERK Work Phone: [facility] 07-02-2023 11:34-0400 Systolic blood pressure 159 mm[Hg] Leticia Bridenthal DEVELOPMENT ADVISOR - ASSIGNMENT CLERK Work Phone: [facility] 07-02-2023 10:44-0400 Body mass index (BMI) [Ratio] 33.38 kg/m2 Leticia Bridenthal DEVELOPMENT ADVISOR - ASSIGNMENT CLERK Work Phone: [facility] 07-02-2023 10:44-0400 Body temperature 98.01 [degF] Leticia Bridenthal DEVELOPMENT ADVISOR - ASSIGNMENT CLERK Work Phone: [facility] 07-02-2023 10:44-0400 Body weight 90.99 kg Leticia Bridenthal DEVELOPMENT ADVISOR - ASSIGNMENT CLERK Work Phone: [facility] 07-02-2023 10:44-0400 Heart rate 88 /min Leticia Bridenthal DEVELOPMENT ADVISOR - ASSIGNMENT CLERK Work Phone: [facility] 07-02-2023 10:44-0400 Respiratory rate 16 /min Leticia Bridenthal DEVELOPMENT ADVISOR - ASSIGNMENT CLERK Work Phone: [facility] 07-02-2023 10:44-0400 SaO2% (BldA) [Mass fraction] 98 % Leticia Dsouza DEVELOPMENT ADVISOR - ASSIGNMENT CLERK Work Phone: [facility] 04-19-2023 08:20-0400 Body height 165.1 cm Helder Ruiz MD Work Phone: [facility] 04-19-2023 08:20-0400 Body mass index (BMI) [Ratio] 34.61 kg/m2 Helder Ruiz MD Work Phone: [facility] 04-19-2023 08:20-0400 Body weight 94.35 kg Helder Ruiz MD Work Phone: [facility] 04-19-2023 08:20-0400 Diastolic blood pressure 99 mm[Hg] Helder Ruiz MD Work Phone: [facility] 04-19-2023 08:20-0400 Heart rate 88 /min Helder Ruiz MD Work Phone: [facility] 04-19-2023 08:20-0400 Systolic blood pressure 141 mm[Hg] Helder Ruiz MD Work Phone: [facility] 04-18-2023 22:14-0400 Body temperature 98.6 [degF] Eloisa Squires MD Work Phone: [facility] 04-18-2023 22:14-0400 Diastolic blood pressure 105 mm[Hg] Eloisa Squires MD Work Phone: [facility] 04-18-2023 22:14-0400 Heart rate 85 /min Eloisa Squires MD Work Phone: [facility] 04-18-2023 22:14-0400 Respiratory rate 18 /min Eloisa Squires MD Work Phone: [facility] 04-18-2023 22:14-0400 SaO2% (BldA) [Mass fraction] 98 % Eloisa Squires MD Work Phone: [facility] 04-18-2023 22:14-0400 Systolic blood pressure 158 mm[Hg] Eloisa Squires MD Work Phone: [facility] 03-29-2023 10:30-0400 Diastolic blood pressure 97 mm[Hg] Wilmar Cristobal MD Work Phone: [facility] 03-29-2023 10:30-0400 Heart rate 83 /min Wilmar Cristobal MD Work Phone: [facility] 03-29-2023 10:30-0400 Respiratory rate 14 /min Wilmar Cristobal MD Work Phone: [facility] 03-29-2023 10:30-0400 SaO2% (BldA) [Mass fraction] 98 % Wilmar Cristobal MD Work Phone: [facility] 03-29-2023 10:30-0400 Systolic blood pressure 136 mm[Hg] Wilmar Cristobal MD Work Phone: [facility] 03-29-2023 09:05-0400 Body temperature 97 [degF] Wilmar Cristobal MD Work Phone: [facility] 03-29-2023 07:03-0400 Body height 165.1 cm Wilmar Cristobal MD Work Phone: [facility] 03-29-2023 07:03-0400 Body mass index (BMI) [Ratio] 34.61 kg/m2 Wilmar Cristobal MD Work Phone: [facility] 03-29-2023 07:03-0400 Body weight 94.35 kg Wilmar Cristobal MD Work Phone: [facility] 03-15-2023 16:00-0400 Diastolic blood pressure 91 mm[Hg] Wilmar Cristobal MD Work Phone: [facility] 03-15-2023 16:00-0400 Heart rate 69 /min Wilmar Cristobal MD Work Phone: [facility] 03-15-2023 16:00-0400 Systolic blood pressure 131 mm[Hg] Wilmar Cristobal MD Work Phone: [facility] 03-15-2023 14:30-0400 Respiratory rate 17 /min Wilmar Cristobal MD Work Phone: [facility] 03-15-2023 14:20-0400 Body temperature 97 [degF] Wilmar Cristobal MD Work Phone: [facility] 03-15-2023 10:21-0400 Body height 165.1 cm Wilmar Cristobal MD Work Phone: [facility] 03-15-2023 10:21-0400 Body mass index (BMI) [Ratio] 34.61 kg/m2 Wilmar Cristobal MD Work Phone: [facility] 03-15-2023 10:21-0400 Body weight 94.35 kg Wilmar Cristobal MD Work Phone: [facility] 03-15-2023 07:45-0400 Body temperature 97.9 [degF] Alverto Mudrakola DO Work Phone: [facility] 03-15-2023 07:45-0400 Diastolic blood pressure 97 mm[Hg] Alverto Mudrakola DO Work Phone: [facility] 03-15-2023 07:45-0400 Heart rate 57 /min Alverto Mudrakola DO Work Phone: [facility] 03-15-2023 07:45-0400 Respiratory rate 15 /min Alverto Mudrakola DO Work Phone: [facility] 03-15-2023 07:45-0400 SaO2% (BldA) [Mass fraction] 96 % Alverto Mudrakola DO Work Phone: [facility] 03-15-2023 07:45-0400 Systolic blood pressure 143 mm[Hg] Alverto Mudrakola DO Work Phone: [facility] 03-15-2023 07:31-0400 Body height 167 cm Alverto Mudrakola DO Work Phone: [facility] 03-14-2023 06:51-0400 Body mass index (BMI) [Ratio] 33.83 kg/m2 Alverto Mudrakola DO Work Phone: [facility] 03-14-2023 06:51-0400 Body weight 94.35 kg Alverto Stearns DO Work Phone: [facility] 02-15-2023 14:02-0400 Body height 165.1 cm Padmaja Douglass APRN - ASSIGNMENT CLERK Work Phone: [facility] 02-15-2023 14:02-0400 Body mass index (BMI) [Ratio] 34.61 kg/m2 Padmaja Douglass DEVELOPMENT ADVISOR - ASSIGNMENT CLERK Work Phone: [facility] 02-15-2023 14:02-0400 Body weight 94.35 kg Padmaja Douglass DEVELOPMENT ADVISOR - ASSIGNMENT CLERK Work Phone: [facility] 02-15-2023 14:02-0400 Diastolic blood pressure 92 mm[Hg] Padmaja Douglass DEVELOPMENT ADVISOR - ASSIGNMENT CLERK Work Phone: [facility] 02-15-2023 14:02-0400 Heart rate 90 /min Padmaja Douglass DEVELOPMENT ADVISOR - ASSIGNMENT CLERK Work Phone: [facility] 02-15-2023 14:02-0400 SaO2% (BldA) [Mass fraction] 96 % Padmaja Douglass APRN - ASSIGNMENT CLERK Work Phone: [facility] 02-15-2023 14:02-0400 Systolic blood pressure 144 mm[Hg] Padmaja Douglass APRN - ASSIGNMENT CLERK Work Phone: [facility] 12-26-2022 03:45-0400 Diastolic blood pressure 78 mm[Hg] Alejandro Kaplan DO Work Phone: [facility] 12-26-2022 03:45-0400 Systolic blood pressure 136 mm[Hg] Alejandro Mason DO Work Phone: [facility] 12-26-2022 02:17-0400 Body temperature 97.9 [degF] Alejandro Kaplan DO Work Phone: [facility] 12-26-2022 02:17-0400 Heart rate 61 /min Alejandro Kaplan DO Work Phone: [facility] 12-26-2022 02:17-0400 Respiratory rate 18 /min Alejandro Kaplan DO Work Phone: [facility] 12-26-2022 02:17-0400 SaO2% (BldA) [Mass fraction] 99 % Alejandro Kaplan DO Work Phone: [facility] 07-09-2022 13:05-0400 Diastolic blood pressure 90 mm[Hg] Ervin Badillo MD Work Phone: [facility] 07-09-2022 13:05-0400 Heart rate 65 /min Ervin Badillo MD Work Phone: [facility] 07-09-2022 13:05-0400 SaO2% (BldA) [Mass fraction] 98 % Ervin Badillo MD Work Phone: [facility] 07-09-2022 13:05-0400 Systolic blood pressure 136 mm[Hg] Ervin Badillo MD Work Phone: [facility] 07-09-2022 09:53-0400 Body temperature 98.01 [degF] Ervin Badillo MD Work Phone: [facility] 07-09-2022 09:53-0400 Respiratory rate 14 /min Ervin Badillo MD Work Phone: [facility] 06-12-2022 20:09-0400 Diastolic blood pressure 90 mm[Hg] Juanitamat Hazel DO Work Phone: [facility] 06-12-2022 20:09-0400 Heart rate 90 /min Juanita Yasemin DO Work Phone: [facility] 06-12-2022 20:09-0400 Systolic blood pressure 142 mm[Hg] Juanita Yasemin DO Work Phone: [facility] 06-12-2022 18:25-0400 Body height 165.1 cm Juanita Yasemin DO Work Phone: [facility] 06-12-2022 18:25-0400 Body temperature 98.1 [degF] Juanita Hazel DO Work Phone: [facility] 06-12-2022 18:25-0400 Respiratory rate 18 /min Juanita Yasemin DO Work Phone: [facility] 06-12-2022 18:25-0400 SaO2% (BldA) [Mass fraction] 98 % Juanita Hazel DO Work Phone: [facility] 03-21-2022 14:33-0400 Body weight 105.23 kg Comfortper Guzmanhof DEVELOPMENT ADVISOR.ASSIGNMENT CLERK Work Phone: [facility] 03-21-2022 14:33-0400 Diastolic blood pressure 100 mm[Hg] Comfort Guzmanhof DEVELOPMENT ADVISOR.ASSIGNMENT CLERK Work Phone: [facility] 03-21-2022 14:33-0400 Heart rate 67 /min Comfort Guzmanhof DEVELOPMENT ADVISOR.ASSIGNMENT CLERK Work Phone: [facility] 03-21-2022 14:33-0400 SaO2% (BldA) [Mass fraction] 96 % Comfort Meganf DEVELOPMENT ADVISOR.ASSIGNMENT CLERK Work Phone: [facility] 03-21-2022 14:33-0400 Systolic blood pressure 130 mm[Hg] Comfort Tannhof DEVELOPMENT ADVISOR.ASSIGNMENT CLERK Work Phone: [facility] 03-14-2022 22:19-0400 Diastolic blood pressure 77 mm[Hg] Jane Breanne DO Work Phone: [facility] 03-14-2022 22:19-0400 Systolic blood pressure 112 mm[Hg] Jane Breanne DO Work Phone: [facility] 03-14-2022 21:26-0400 Heart rate 79 /min Jane Breanne DO Work Phone: [facility] 03-14-2022 21:26-0400 Respiratory rate 19 /min Jane Breanne DO Work Phone: [facility] 03-14-2022 21:26-0400 SaO2% (BldA) [Mass fraction] 100 % Jane Breanne DO Work Phone: [facility] 03-14-2022 19:34-0400 Body temperature 96.8 [degF] Jane Lopezs DO Work Phone: [facility] 02-19-2022 05:56-0400 Diastolic blood pressure 60 mm[Hg] Shalonda Rodriguez DO Work Phone: [facility] 02-19-2022 05:56-0400 Heart rate 65 /min Shalonda Milleraci DO Work Phone: [facility] 02-19-2022 05:56-0400 Respiratory rate 16 /min Shalonda Rodriguez DO Work Phone: [facility] 02-19-2022 05:56-0400 SaO2% (BldA) [Mass fraction] 96 % Shalonda Rodriguez DO Work Phone: [facility] 02-19-2022 05:56-0400 Systolic blood pressure 124 mm[Hg] Shalonda Rodriguez DO Work Phone: [facility] 02-19-2022 03:37-0400 Body temperature 98.01 [degF] Shalonda Rodriguez DO Work Phone: [facility] 12-19-2021 07:07-0400 Body weight 107.5 kg Jojo Cordova APRN.CNP, DNP Work Phone: [facility] 12-19-2021 07:07-0400 Diastolic blood pressure 78 mm[Hg] Jojo Cordova APRN.ANYA, DNP Work Phone: [facility] 12-19-2021 07:07-0400 Heart rate 61 /min Jojo Cordova APRN.CNP, DNP Work Phone: [facility] 12-19-2021 07:07-0400 Respiratory rate 14 /min Jojo Cordova APRN.CNP, DNP Work Phone: [facility] 12-19-2021 07:07-0400 SaO2% (BldA) [Mass fraction] 98 % Jojo Cordova APRN.CNP, DNP Work Phone: [facility] 12-19-2021 07:07-0400 Systolic blood pressure 126 mm[Hg] Jojo Cordova APRN.ASSIGNMENT CLERK, DNP Work Phone: [facility] 12-01-2021 22:36-0400 Diastolic blood pressure 99 mm[Hg] Linden Garduno MD Work Phone: [facility] 12-01-2021 22:36-0400 Heart rate 63 /min Linden Garduno MD Work Phone: [facility] 12-01-2021 22:36-0400 Respiratory rate 16 /min Linden Garduno MD Work Phone: [facility] 12-01-2021 22:36-0400 SaO2% (BldA) [Mass fraction] 99 % Linden Garduno MD Work Phone: [facility] 12-01-2021 22:36-0400 Systolic blood pressure 133 mm[Hg] Linden Garduno MD Work Phone: [facility] 12-01-2021 20:16-0400 Body height 165.1 cm Linden Garduno MD Work Phone: [facility] 12-01-2021 20:16-0400 Body mass index (BMI) [Ratio] 33.28 kg/m2 Linden Garduno MD Work Phone: [facility] 12-01-2021 20:16-0400 Body temperature 97.9 [degF] Linden Garduno MD Work Phone: [facility] 12-01-2021 20:16-0400 Body weight 90.72 kg Linden Garduno MD Work Phone: [facility] Encounters Encounter Date Encounter Type Care Provider Facility Start: 03-05-2025 ambulatory Damaso Swift Facilit y:[facility] Start: 03-04-2025 Encounter for other preprocedural examination Damaso [facility] Start: 03-03-2025 End: 03-03-2025 Emergency department patient visit No Primary Care Physician -Emergency Department Work Phone: Start: 02-22-2025 End: 02-22-2025 ambulatory No Primary Care Physician [facility] Work Phone: Start: 02-22-2025 End: 02-22-2025 Patient encounter procedure Comfort Guzmanarron SITE HEAD-C -Laboratory Elza Walker Start: 02-22-2025 End: 02-22-20[facility] Start: 01-27-2025 End: 01-27-[address] Damaso Swift DPM -MRI - [facility] Work Phone: Start: 01-27-2025 End: 01-27-2025 ambulatory Damaso Swift Facility:[facility] Start: 12-07-2024 End: 12-07-[address] Jane Raymundo DO Work Phone: [facility] Work Phone: Start: 12-07-2024 End: 12-07-[address] Damaso Swift DPM -Laboratory Work Phone: Start: 12-07-2024 End: 12-07-2024 ambulatory Damaso Swift Facility:[facility] Start: 09-06-2024 End: 09-07-2024 Emergency department patient visit Dr. Jane Raymundo DO -Emergency Department Work Phone: Start: 06-23-2024 End: 06-25-2024 Telephone encounter Karthikeyan LANDA Work Phone: [facility] Comment on above: Results Start: 06-21-2024 End: 06-21-2024 ambulatory JONATHAN MARTÍNEZ Facility:[facility] Start: 06-21-2024 End: 06-21-2024 Office outpatient visit 25 minutes Damaso Palma APRN.CNP Work Phone: [facility] Comment on above: Burning with urinati on (Primary Dx) Start: 2024 End: 2024 ambulatory [facility] Start: 2024 End: 2024 Encounter for gynecological examination (general) (routine) without abnormal findings LETICIA RAHULLEONILAAL [facility] Start: 2024 End: 2024 Initial preventive medicine new pt age 18-39yrs Leticia Rahulenthal DEVELOPMENT ADVISOR - ASSIGNMENT CLERK Work Phone: [facility] Comment on above: Well woman exam with routine gynecological exam (Primary Dx); Screening for cervical cancer; Screening for deficiency anemia; Screening for diabetes mellitus; Screening for cholesterol level; Herpes simplex virus (HSV) infection; Screening for STD (sexually transmitted disease); Primary hypertension Start: 2024 End: 2024 Patient encounter procedure Leticiachelle Northal DEVELOPMENT ADVISOR - ASSIGNMENT CLERK Work Phone: [facility] Phone: Start: 03-13-2024 End: 03-13-2024 Emergency department patient visit ANKITA CENTENO [facility] Start: 03-13-2024 End: 03-16-2024 [facility] Start: 03-13-2024 End: 03-16-2024 Patient encounter procedure [facility] Start: 02-13-2024 End: 02-13-20[facility] Start: 02-13-2024 End: 02-13-2024 Office outpatient visit 10 minutes Leticia Bridenthal DEVELOPMENT ADVISOR - ASSIGNMENT CLERK Work Phone: [facility] Comment on above: Primary hypertension Start: 02-06-2024 End: 02-06-2024 Office outpatient visit 15 minutes Leticia Bridenthal DEVELOPMENT ADVISOR - ASSIGNMENT CLERK Work Phone: [facility] Comment on above: Primary hypertension (Primary Dx) Start: 02-06-2024 End: 02-06-2024 [facility] Start: 01-28-2024 End: 01-28-2024 Office outpatient visit 15 minutes Leticia Bridenthal DEVELOPMENT ADVISOR - ASSIGNMENT CLERK Work Phone: [facility] Comment on above: Primary hypertension (Primary Dx) Start: 01-28-2024 End: 01-28-2024 [facility] Start: 01-15-2024 End: 01-15-2024 Office outpatient visit 15 minutes Leticia Bridenthal DEVELOPMENT ADVISOR - ASSIGNMENT CLERK Work Phone: [facility] Comment on above: Primary hypertension (Primary Dx) Start: 01-15-2024 End: 01-15-2024 Office outpatient visit 25 minutes Leticia Bridenthal DEVELOPMENT ADVISOR - ASSIGNMENT CLERK Work Phone: [facility] Comment on above: Primary hypertension (Primary Dx) Start: 01-15-2024 End: 01-15-2024 ambulatory LETICIA [facility] Start: 01-01-2024 End: 01-01-2024 Office outpatient visit 15 minutes Leticia Bridenthal DEVELOPMENT ADVISOR - ASSIGNMENT CLERK Work Phone: [facility] Comment on above: Primary hypertension Start: 01-01-2024 End: 01-01-2024 ambulatory LETICIA [facility] Start: 12-25-2023 End: 12-25-2023 Office outpatient visit 15 minutes Leticia Bridenthal DEVELOPMENT ADVISOR - ASSIGNMENT CLERK Work Phone: [facility] Comment on above: Anxiety and depressi on (Primary Dx); Primary hypertension; Disability due to neurological disorder Start: 12-25-2023 End: 12-25-2023 ambulatory LETICIA [facility] Start: 12-06-2023 Telephone encounter Devin Zabala MD Work Phone: [facility] Comment on above: Forms/questionnaires Start: 09-26-2023 End: 09-26-2023 Office outpatient visit 15 minutes Leticia Bridenthal DEVELOPMENT ADVISOR - ASSIGNMENT CLERK Work Phone: [facility] Comment on above: Anxiety and depressi on (Primary Dx) Start: 09-26-2023 End: 09-26-2023 Office outpatient visit 25 minutes Leticia Bridenthal DEVELOPMENT ADVISOR - ASSIGNMENT CLERK Work Phone: [facility] Comment on above: Anxiety and depressi on (Primary Dx) Start: 09-26-2023 End: 09-26-2023 ambulatory [facility] Start: 09-04-2023 End: 09-04-2023 Office outpatient visit 25 minutes Leticia Bridenthal DEVELOPMENT ADVISOR - ASSIGNMENT CLERK Work Phone: [facility] Comment on above: Anxiety and depressi on (Primary Dx); Primary hypertension; Need for hepatitis C screening test; Screening for HIV (human immunodeficiency virus) Start: 09-04-2023 End: 09-04-2023 ambulatory [facility] Start: 08-30-2023 End: 08-30-2023 Emergency department patient visit Shalonda Nicole MD Work Phone: [facility] ED Comment on above: Seizure (HCC) (Prima ry Dx); Psychogenic nonepileptic seizure Start: 07-09-2023 End: 07-09-2023 Office outpatient visit 25 minutes Leticia Bridenthal DEVELOPMENT ADVISOR - ASSIGNMENT CLERK Work Phone: [facility] Comment on above: Anxiety and depressi on (Primary Dx); Influenza vaccine needed; Primary hypertension Start: 07-09-2023 End: 07-09-2023 ambulatory [facility] Start: 07-02-2023 End: [facility] Start: 07-02-2023 End: 07-02-2023 Office outpatient visit 15 minutes Leticia Bridenthal DEVELOPMENT ADVISOR - ASSIGNMENT CLERK Work Phone: [facility] Comment on above: Anxiety and depressi on (Primary Dx); Primary hypertension Start: 07-02-2023 End: 07-02-2023 Office outpatient visit 25 minutes Leticia Bridenthal DEVELOPMENT ADVISOR - ASSIGNMENT CLERK Work Phone: [facility] Comment on above: Anxiety and depressi on (Primary Dx); Primary hypertension Start: 04-19-2023 End: 04-19-2023 Office outpatient visit 25 minutes Helder Ruiz MD Work Phone: [facility]rology Comment on above: Renal calculus, left (Primary Dx) Start: 04-19-2023 End: 04-19-2023 ambulatory HELDER RUIZ [facility] Start: 04-18-2023 End: 04-18-2023 Subsequent hospital visit by physician [facility] Exam Room [address] [facility] [address] Comment on above: Arrived Start: 04-18-2023 End: 04-18-2023 Emergency department patient visit Eloisa Squires MD Work Phone: [facility] ED Comment on above: Left flank pain (Yancy theo Dx); Ureteral stent present; Urinary tract infection with hematuria, site unspecified Start: 03-29-2023 End: 03-29-2023 Subsequent hospital visit by physician Wilmar Cristobal MD Work Phone: [facility] Comment on above: Ureteral calculus, l eft (Primary Dx) Start: 03-22-2023 [facility] Start: 03-22-2023 [facility] Start: 03-15-2023 Telephone encounter Wilmar Tobias ra, MD Work Phone: [facility] Start: 03-15-2023 End: 03-15-2023 Subsequent hospital visit by physician Wilmar Cristobal MD Work Phone: [facility] Comment on above: Renal calculus Start: 03-13-2023 End: 03-13-2023 Subsequent hospital visit by physician [facility] Exam Room [address] [facility] [address] Comment on above: Arrived Start: 03-13-2023 End: 03-15-2023 Evaluation and management of inpatient Alverto Stearns DO Work Phone: [facility] Comment on above: Obstruction of left ureteropelvic junction (UPJ) due to stone (Primary Dx); Renal calculus, bilateral Start: 02-15-2023 End: 02-15-2023 Office outpatient visit 10 minutes Padmaja LJosh JonesRafat DEVELOPMENT ADVISOR - ASSIGNMENT CLERK Work Phone: [facility] Comment on above: Laryngitis (Primary Dx); Viral URI with cough Start: 02-14-2023 Refill Jonathan nesbitt DO Work Phone: [facility] Start: 12-26-2022 End: 12-26-2022 Subsequent hospital visit by physician [facility] Exam Room [address] [facility] [address] Comment on above: Arrived Start: 12-26-2022 End: 12-26-2022 Emergency department patient visit Alejandro Kaplan DO Work Phone: [facility] Comment on above: Ureterolithiasis (Pr imary Dx); UTI (urinary tract infection), bacterial Start: 11-06-2022 Refill Jonathan nesbitt DO Work Phone: [facility] Start: 07-24-2022 ambulatory UNKNOWN PROVIDER [facility] Start: 07-09-2022 End: 07-09-2022 Subsequent hospital visit by physician Ac Crabtree MD Work Phone: [facility] Comment on above: Syncope, unspecified syncope type; Memory loss of unknown cause; Confusion and disorientation; Vertigo; Convulsions, unspecified convulsion type (HCC) Syncope and collapse (Primary Dx); Other amnesia; Dizziness and giddiness; Unspecified convulsions (HCC) Start: 07-09-2022 End: 07-09-2022 Emergency department patient visit UNKNOWN PROVIDER [facility] Start: 07-09-2022 ambulatory Ac Crabtree [facility] Start: 07-09-2022 End: 07-09-2022 Emergency department patient visit [facility] Comment on above: Seizure-like activit y (HCC) (Primary Dx) Start: 07-06-2022 ambulatory PCP No [facility] Start: 07-06-2022 End: 07-06-2022 Subsequent hospital visit by physician Ac Crabtree MD Work Phone: [facility] Start: 07-01-2022 Transcribe Orders Ac whitfield MD Work Phone: [facility] Comment on above: Dizziness and giddin ess (Primary Dx) Start: 06-19-2022 Transcribe Orders Ac whitfield MD Work Phone: [facility] [place] Comment on above: Syncope and collapse ; Other amnesia; Disorientation, unspecified; Unspecified convulsions (HCC) Start: 06-12-2022 End: 06-12-2022 Emergency department patient visit UNKNOWN PROVIDER [facility] Start: 06-12-2022 End: 06-12-2022 Emergency department patient visit Juanita Hazel DO Work Phone: [facility] Comment on above: Acute cystitis witho ut hematuria (Primary Dx); Seizure-like activity (HCC) Start: 05-15-2022 Refill Jojo Cordova APRN.BINA JOYNER Work Phone: [facility] Comment on above: Refill Request Start: 04-23-2022 Refill Jojo Cordova APRN.BINA JOYNER Work Phone: [facility] Comment on above: Refill Request Start: 03-21-2022 End: 03-21-2022 Patient encounter procedure Comfort Pantoja APRN.CNP Work Phone: [facility] Comment on above: Hospital discharge f ollow-up (Primary Dx); Seizures (HCC); Vitamin D deficiency; Carpal tunnel syndrome, bilateral Start: 03-19-2022 Telephone encounter Jojo weinberg APRN.BINA JOYNER Work Phone: [facility] Comment on above: Patient Update Start: 03-14-2022 End: 03-15-2022 Emergency department patient visit UNKNOWN PROVIDER [facility] Start: 03-14-2022 End: 03-14-2022 Emergency department patient visit Jane Raymundo DO Work Phone: [facility] Comment on above: Seizure-like activit y (HCC) (Primary Dx) Start: 02-19-2022 End: 02-19-2022 Emergency department patient visit UNKNOWN PROVIDER [facility] Start: 02-19-2022 End: 02-19-2022 Emergency department patient visit Shalonda Rodriguez DO Work Phone: [facility] Comment on above: Ureterolithiasis (Pr imary Dx); Medullary sponge kidney; Nausea; Supervision of other normal , antepartum; Amenorrhea Start: 12-21-2021 Telephone encounter Jojo weinberg APRN.[facility] Work Phone: [facility] Comment on above: Results Start: 12-19-2021 End: 12-19-2021 Subsequent hospital visit by physician Xr [facility] Work Phone: Radiology Comment on above: Left elbow pain [[id number] .[id number]] Start: 12-19-2021 End: 12-19-2021 Patient encounter procedure Jojo Cordova APRN.ASSIGNMENT CLERK, [facility] Work Phone: [facility] Comment on above: Congenital medullary sponge kidney (Primary Dx); Kidney stone; Abdominal wall hernia; Left elbow pain; Special screening examination for viral disease; Obesity, Class II, BMI 35-39.9 Start: 12-01-2021 End: 12-02-2021 Emergency department patient visit PCP No [facility] Start: 12-01-2021 End: 12-02-2021 Emergency department patient visit Linden Garduno MD Work Phone: [facility] Comment on above: Kidney stone (Primar y Dx); Renal colic; Ventral hernia without obstruction or gangrene Start: 07-18-2021 End: 07-18-2021 Subsequent hospital visit by physician Xr [facility] Work Phone: Radiology Comment on above: Carpal tunnel syndro me, bilateral [G56.03] Start: 03-22-2021 End: 03-22-2021 Subsequent hospital visit by physician Xr [facility] Work Phone: Radiology Comment on above: Chronic cough [R05] Start: 01-06-2019 End: 01-06-2019 Patient encounter procedure KALIN POSADAS [facility] Start: 05-15-2017 End: 05-16-2017 [facility] Start: 05-14-2017 End: 05-15-2017 Ambulatory [facility] Start: 01-05-2013 End: 07-09-2014 Patient requested procedure Xr Fitzpatrick Work Phone: [facility] Procedures Date Procedure Procedure Detail Performing Clinician Start: 03-03-2025 X-ray of chest, PA a nd lateral views No Primary Care Physician Start: 03-03-2025 Estimated creatinine clearance No Primary Care Physician Start: 01-27-2025 MRI of joint of lowe r extremity No Primary Care Physician Start: 09-06-2024 Computed tomography of abdomen and pelvis with intravenous contrast Dr. Jane Raymundo DO Work Phone: Start: 09-06-2024 Plain chest X-ray Dr. Nancy Raymundo DO Work Phone: Start: 09-06-[address] Carol Ann Raymundo DO Work Phone: Start: 06-21-2024 Urnls dip stick/tabl et rgnt auto w/o microscopy Eugenie Arreola DEVELOPMENT ADVISOR.ASSIGNMENT CLERK Work Phone: Start: 2024 Comprehensive metabo lic panel Leticia Dsouza DEVELOPMENT ADVISOR - ASSIGNMENT CLERK Work Phone: Start: 2024 Lipid panel Leticia eaton DEVELOPMENT ADVISOR - ASSIGNMENT CLERK Work Phone: Start: 2024 SURESWAB(R) ADVANCED VAGINITIS PLUS, TMA (QUEST) Leticia Dsouza DEVELOPMENT ADVISOR - ASSIGNMENT CLERK Work Phone: Start: 2024 Lipid 1996 panel - S nora or Plasma Leticia Dsouza DEVELOPMENT ADVISOR - ASSIGNMENT CLERK Work Phone: Start: 09-26-2023 Follow-up visit Follow-up LETICIA DSOUZA Start: 09-04-2023 Comprehensive metabo lic panel Leticia Dsouza DEVELOPMENT ADVISOR - ASSIGNMENT CLERK Work Phone: Start: 09-04-2023 Hepatitis c antibody Re chino Dsouza DEVELOPMENT ADVISOR - ASSIGNMENT CLERK Work Phone: Start: 08-30-2023 Ct head/brain w/o co ntrast material Shalonda Nicole MD Work Phone: Start: 08-30-2023 Comprehensive metabo lic panel Shalonda Nicole MD Work Phone: Start: 04-18-2023 Ct abdomen & pelvis w/o contrast material Eloisa Squires MD Work Phone: Start: 04-18-2023 Basic metabolic pane l calcium total Eloisa Squires MD Work Phone: Start: 04-18-2023 Urinalysis complete panel - Urine Eloisa Squires MD Work Phone: Start: 04-18-2023 Urine test visual color cmprsn meths Eloisa Squires MD Work Phone: Start: 04-18-2023 Urnls dip stick/tabl et reagent auto microscopy Eloisa Squires MD Work Phone: Start: 03-29-2023 FL GUIDANCE OR USE O NLY - NON-RESULTABLE Wilmar Cristobal MD Work Phone: Start: 03-29-2023 Urine test visual color cmprsn meths Greg Sunshine MD Work Phone: Start: 03-15-2023 FL GUIDANCE OR USE O NLY - NON-RESULTABLE Wilmar Cristobal MD Work Phone: Start: 03-15-2023 Urine test visual color cmprsn meths Sugar Kat DEVELOPMENT ADVISOR - VACUUM CLEANER REPAIRER Work Phone: Start: 03-14-2023 Radiologic exam abdo men 1 view Heri Brandt DEVELOPMENT ADVISOR - ASSIGNMENT CLERK Work Phone: Start: 03-14-2023 Ct abdomen & pelvis w/o contrast material Alverto Mudrakola DO Work Phone: Start: 03-13-2023 Culture bacterial quanttative colony count urine Alverto Mudrakola DO Work Phone: Start: 03-13-2023 Urinalysis complete panel - Urine Alverto Stearns DO Work Phone: Start: 03-13-2023 Urine test visual color cmprsn meths Alverto Stearns DO Work Phone: Start: 03-13-2023 Basic metabolic pane l calcium total Alverto Stearns DO Work Phone: Start: 12-26-2022 Urinalysis complete panel - Urine Alejandro Kaplan DO Work Phone: Start: 12-26-2022 Urnls dip stick/tabl et reagent auto microscopy Alejandro Kaplan DO Work Phone: Start: 12-26-2022 Ct abdomen & pelvis w/o contrast material Alejandro Kaplan DO Work Phone: Start: 12-26-2022 Basic metabolic pane l calcium total Alejandro Kaplan DO Work Phone: Start: 07-09-2022 ADD ON LAB TEST Ervin Badillo MD Work Phone: Start: 07-09-2022 End: 07-09-2022 Basic metabolic panel calcium total Ervin Badillo MD Work Phone: Start: 07-09-2022 Ecg routine ecg w/le ast 12 lds w/i&r Ervin Badillo MD Work Phone: Start: 07-09-2022 Mri brain brain stem w/o w/contrast material Ac Crabtree MD Work Phone: Start: 06-12-2022 Drug tst prsmv instr mnt chem analyzers pr date Jojo Llanos DEVELOPMENT ADVISOR [employer] Work Phone: Start: 06-12-2022 Urnls dip stick/tabl et rgnt auto w/o microscopy Jojo Llanos DEVELOPMENT ADVISOR Drive [employer] ASSIGNMENT CLERK Work Phone: Start: 06-12-2022 Ecg routine ecg w/le ast 12 lds w/i&r Jojo Llanos DEVELOPMENT ADVISOR Drive [employer] ASSIGNMENT CLERK Work Phone: Start: 06-12-2022 Comprehensive metabo lic panel Jojo Boss CNP Work Phone: Start: 03-14-2022 POCT VENOUS Jane And gretel DO Work Phone: Start: 03-14-2022 Ct head/brain w/o co ntrast material Jane Breanne DO Work Phone: Start: 03-14-2022 Radiologic exam ches t single view Jane Breanne DO Work Phone: Start: 03-14-2022 Urnls dip stick/tabl et rgnt auto w/o microscopy Jane Breanne DO Work Phone: Start: 03-14-2022 Assay of ethanol Jane Breanne DO Work Phone: Start: 03-14-2022 End: 03-14-2022 Basic metabolic panel calcium total Jane Breanne DO Work Phone: Start: 03-14-2022 End: 03-14-2022 Hepatic function panel Jane Breanne DO Work Phone: Start: 02-19-2022 Ct abdomen & pelvis w/o contrast material Shalonda Rodriguez DO Work Phone: Start: 02-19-2022 Urnls dip stick/tabl et rgnt auto w/o microscopy Shalonda Rodriguez DO Work Phone: Start: 12-19-2021 Radex elbow 2 views Chip Cordova APRN.ASSIGNMENT CLERK, DNP Work Phone: Start: 12-01-2021 Ct abdomen & pelvis w/o contrast material Linden Garduno MD Work Phone: Start: 12-01-2021 Urnls dip stick/tabl et rgnt auto w/o microscopy Linden Garduno MD Work Phone: Start: 07-18-2021 Radex hand minimum 3 views Jojo Cordova APRN.ASSIGNMENT CLERK, DNP Work Phone: Start: 03-22-2021 Radiologic exam ches t 2 views Jojo Cordova DEVELOPMENT ADVISOR.ASSIGNMENT CLERK, DNP Work Phone: Start: 05-15-2017 Us uterus 1 4 wk transabdl 09/16 gestat SANDIE POOL Start: 05-14-2017 C.TRACHOMATIS N.GONO RRHOEAE DNA, URINE SANDIE POOL Start: 05-14-2017 HEPATITIS C ANTIBODY EMELYN LERMA POOL Start: 05-14-2017 HIV SCREEN SANDIE P OOL Start: 05-14-2017 PROFILE I ISAMAR GONZALEZ POOL Start: 05-14-2017 TYPE AND SCREEN SANDIE POOL Start: 05-14-2017 URINE CULTURE CLEAN CATCH SANDIE POOL Start: 05-14-2017 URINE DRUG SCREEN, COMPREHENSIVE SANDIE POOL section ANKITA JENNIFER DAVIS DO Hernia of anterior abdominal wall (disorder) ANKITA JHACARMELA DO Plan of Treatment Date Care Activity Detail Author Start: 2050 RSV Immunization aged 60 or older (1 - 1-dose 60+ series) RSV Immunization aged 60 or older (1 - 1-dose 60+ series) [facility] Start: 2040 Zoster Vaccines (1 of 2) Zoster Vaccines (1 of 2) [facility] Start: 2029 Lipid panel Lipid Panel [facility] Start: 2029 Screening for malignant neoplasm of cervix Cervical Cancer Screening [facility] Start: 03-03-2025 [facility] Start: 03-03-2025 [facility] Start: 12-09-2024 DTaP/Tdap/Td vaccine (2 - Td or Tdap) DTaP/Tdap/Td vaccine (2 - Td or Tdap) [facility] Start: 12-09-2024 DTaP/Tdap/Td Vaccines (2 - Td or Tdap) DTaP/Tdap/Td Vaccines (2 - Td or Tdap) [facility] Start: 12-09-2024 Urine microalbumin profile [facility] Start: 09-25-2024 Depression Monitoring Depression Monitoring [facility] Start: 09-06-2024 [facility] Start: 09-04-2024 COVID-19 Vaccine ( season) COVID-19 Vaccine ( season) [facility] Comment on above: Postponed from 05/17/2023 (Patient Refus ed) Start: 09-04-2024 Hepatitis B Vaccines (1 of 3 - 19+ 3-dose series) Hepatitis B Vaccines (1 of 3 - 19+ 3-dose series) [facility] Comment on above: Postponed from 2009 (Patient Refus ed) Start: 09-04-2024 Hepatitis B Vaccines (1 of 3 - 3-dose series) Hepatitis B Vaccines (1 of 3 - 3-dose series) [facility] Comment on above: Postponed from 1990 (Patient Refus ed) Start: 09-04-2024 Pneumococcal Vaccine: Pediatrics (0 to 5 Years) and At-Risk Patients (6 to 64 Years) (1 of 2 - PCV) Pneumococcal Vaccine: Pediatrics (0 to 5 Years) and At-Risk Patients (6 to 64 Years) (1 of 2 - PCV) [facility] Comment on above: Postponed from 1996 (Patient Refus ed) Start: 06-25-2024 End: 06-25-2024 Patient encounter procedure 06/25/2024 2:20 PM EDT Office Visit [facility] [address] [place] [address] Leticia Dsouza, DEVELOPMENT ADVISOR - ASSIGNMENT CLERK [address] [place] [address] [facility] Start: 05-17-2024 Covid-19 Vaccine ( season) Covid-19 Vaccine ( season) [facility] Start: 05-17-2024 Influenza vaccination Influenza Vaccine (#1) [facility] Start: 2024 End: 2025 CBC panel - Blood by Automated count CBC Lab Routine Screening for deficiency anemia Expected: 2024 (Approximate), Expires: 2025 [facility] Comment on above: Expected: 2024 (Approximate), Expi res: 2025 Start: 2024 End: 07-10-2025 Comprehensive metabolic 1998 panel - Serum or Plasma Comprehensive metabolic panel Lab Routine Screening for diabetes mellitus Expected: 2024 (Approximate), Expires: 2025 [facility] Comment on above: Expected: 2024 (Approximate), Expi res: 2025 Start: 2024 End: 2025 Lipid 1996 panel - Serum or Plasma Lipid panel Lab Routine Screening for cholesterol level Expected: 2024 (Approximate), Expires: 2025 [facility] Comment on above: Expected: 2024 (Approximate), Expi res: 2025 Start: 2024 End: 2024 Patient encounter procedure [facility] Start: 2024 End: 2025 SURESWAB(R) ADVANCED VAGINITIS PLUS, TMA ([facility]) Sureswab(R) Advanced Vaginitis Plus, TMA ([facility]) Lab Routine Screening for STD (sexually transmitted disease) Expected: 2024 (Approximate), Expires: 2025 [facility] Comment on above: Expected: 2024 (Approximate), Expi res: 2025 Start: 03-09-2024 End: 03-09-2024 Patient encounter procedure 03/09/2024 10:40 AM EDT Office Visit [facility] Medicine [address] [place] [address] [place] [address] Leticia Dsouza, DEVELOPMENT ADVISOR - ASSIGNMENT CLERK [address] [facility] [place] [address] [place] [address] [facility] Start: 02-13-2024 End: 02-13-2024 Patient encounter procedure 02/13/2024 9:40 AM EDT Office Visit [facility] [address] [place] [address] [place] [address] Leticia Dsouza, DEVELOPMENT ADVISOR - ASSIGNMENT CLERK [address] [facility] [place] [address] [place] [address] [facility] Start: 02-06-2024 End: 02-06-2024 Patient encounter procedure 02/06/2024 9:00 AM EDT Office Visit [facility] [address] [place] [address] [place] [address] Bridenthal, Leticia, DEVELOPMENT ADVISOR - ASSIGNMENT CLERK [address] [place] [address] [place] [address] [facility] Start: 01-28-2024 End: 01-28-2024 Patient encounter procedure 01/28/2024 2:00 PM EDT Office Visit [facility] [address] [place] [address] [place] [address] Bridenthal, Leticia, DEVELOPMENT ADVISOR - ASSIGNMENT CLERK [address] [place] [address] [place] [address] [facility] Start: 01-15-2024 End: 01-15-2024 Patient encounter procedure 01/15/2024 2:00 PM EDT Office Visit [facility] [address] [place] [address] [place] [address] Bridenthal, Leticia, DEVELOPMENT ADVISOR - ASSIGNMENT CLERK [address] [place] [address] [place] [address] [facility] Start: 01-08-2024 Depression Monitoring Depression Monitoring [facility] Start: 01-08-2024 Depresssion Monitoring Depresssion Monitoring [facility] Start: 01-01-2024 Depresssion Monitoring Depresssion Monitoring [facility] Start: 01-01-2024 End: 01-01-2024 Patient encounter procedure 01/01/2024 2:00 PM EDT Office Visit [facility] [address] [place] [address] [place] [address] Bridenthal, Leticia, DEVELOPMENT ADVISOR - ASSIGNMENT CLERK [address] [place] [address] [place] [address] [facility] Start: 10-14-2023 End: 10-14-2023 Patient encounter procedure 10/14/2023 2:20 PM EST Office Visit [facility] [address] [place] [address] [place] [address] Bridenthal, Leticia, DEVELOPMENT ADVISOR - ASSIGNMENT CLERK [address] [place] [address] [place] [address] [facility] Start: 09-24-2023 End: 09-24-2023 Patient encounter procedure 09/24/2023 11:20 AM EST Office Visit [facility] [address] [place] [address] [place] [address] Bridenthal, Leticia, DEVELOPMENT ADVISOR - ASSIGNMENT CLERK [address] [place] [address] [place] [address] [facility] Start: 09-04-2023 End: 09-04-2023 Patient encounter procedure 09/04/2023 10:00 AM EST Office Visit [facility] [address] [place] [address] [place] [address] Bridenthal, Leticia, DEVELOPMENT ADVISOR - ASSIGNMENT CLERK [address] [place] [address] [place] [address] [facility] Start: 08-07-2023 End: 08-07-2023 Patient encounter procedure 08/07/2023 2:00 PM EST Office Visit [facility] [address] [place] [address] [place] [address] Bridenthal, Leticia, DEVELOPMENT ADVISOR - ASSIGNMENT CLERK [address] [place] [address] [place] [address] [facility] Start: 07-16-2023 End: 07-16-2023 Patient encounter procedure 07/16/2023 1:40 PM EDT Office Visit [facility] [address] [place] [phone] Raven Spaulding, DEVELOPMENT ADVISOR - ASSIGNMENT CLERK [address] [place] [address] [facility] Start: 07-16-2023 End: 07-16-2023 Telemedicine consultation with patient 07/16/2023 11:20 AM EDT Telemedicine [facility] [address] [place] [phone] Raven Spaulding, DEVELOPMENT ADVISOR - ASSIGNMENT CLERK [address] [place] [address] [facility] Start: 07-09-2023 End: 07-09-2023 Patient encounter procedure 07/09/2023 2:00 PM EDT Office Visit [facility] [address] [place] [address] [place] [address] Leticia Dsouza, DEVELOPMENT ADVISOR - ASSIGNMENT CLERK [address] [place] [address] [place] [address] [facility] Start: 07-04-2023 Depression Monitoring Depression Monitoring [facility] Start: 05-17-2023 COVID-19 Vaccine ( season) COVID-19 Vaccine ( season) [facility] Start: 05-17-2023 Influenza vaccination Influenza Vaccine (#1) [facility] Start: 05-03-2023 End: 04-19-2024 XR Abdomen Single view XR abdomen 1 view Imaging Routine Renal calculus, left Expected: 05/03/2023, Expires: 04/19/2024 [facility] Work Phone: Comment on above: Expected: 05/03/2023, Expires: Start: 04-19-2023 End: 04-19-2023 Patient encounter procedure 04/19/2023 8:20 AM EDT Procedure Visit [facility] [address] [place] [phone] Helder Ruiz MD [address] [facility] [address] [place] [phone] [facility] Start: 04-17-2023 End: 04-17-2023 Patient encounter procedure 04/17/2023 1:20 PM EDT Procedure Visit [facility] [address] [place] [phone] Helder Ruiz MD [address] [phone] [facility] Start: 03-29-2023 End: 03-29-2023 Admission to same day surgery center 03/29/2023 8:30 AM EDT - 03/29/2023 9:30 AM EDT Surgery [facility] MAIN OR [address] [place] [phone] Wilmar Cristobal MD [address] [place] [address] [place] [id number] CYSTOSCOPY AND PYELOGRAM. LEFT URETEROSCOPY HOLMIUM LASER LITHOTRIPSY, LEFT STENT CHANGE [31522 (CPT )] [facility] MA[facility] OR Comment on above: CYSTOSCOPY AND PYELOGRAM. LEFT URETEROSC OPY HOLMIUM LASER LITHOTRIPSY, LEFT STENT CHANGE [33671 (CPT )] Start: 03-29-2023 End: 03-29-2023 Anesthesia consultation 03/29/2023 8:30 AM EDT Anesthesia Event [facility] OR [address] [place] [phone] Maci Banks, DONAVAN [facility] OR Start: 03-29-2023 End: 03-29-2023 Cysto bladder w/ureteral catheterization CYSTOSCOPY AND PYELOGRAM Calculus of kidney 03/29/2023 8:30 AM EDT [facility] Operating Room Start: 03-29-2023 End: 03-29-2023 Cysto w/insert ureteral stent CYSTOSCOPY WITH INSERTION URETERAL STENT Calculus of kidney 03/29/2023 8:30 AM EDT [facility] Operating Room Start: 03-29-2023 End: 03-29-2023 Cysto w/ureteroscopy w/lithotripsy CYSTOSCOPY WITH URETEROSCOPY AND OR PYELOSCOPY WITH REMOVAL OR MANIPULATION CALCULUS WITH LITHOTRIPSY Calculus of kidney 03/29/2023 8:30 AM EDT [facility] Operating Room Start: 03-29-2023 Subsequent hospital visit by physician 03/29/2023 8:30 AM EDT Hospital Encounter [facility] OR [address] [place] [phone] Wilmar Cristobal MD [address] [place] [address] [facility] OR Start: 03-21-2023 ANNUAL PCP TEAM CHRONIC DISEASE VISIT ANNUAL PCP TEAM CHRONIC DISEASE VISIT [facility] Start: 03-06-2023 End: 03-06-2023 Patient encounter procedure 03/06/2023 3:00 PM EDT Office Visit [facility] [address] [place] [address] Jonathan Martínez, DO [address] [place] [address] [facility] Start: 12-19-2022 ANNUAL PCP TEAM CHRONIC DISEASE VISIT ANNUAL PCP TEAM CHRONIC DISEASE VISIT [facility] Start: 12-19-2022 BP CONTROLLED (<130/80) BP CONTROLLED (<130/80) [facility] Start: 11-28-2022 End: 11-28-2022 Patient encounter procedure 11/28/2022 Office Visit Family Medicine Jonathan Martínez, DO [address] [place] [address] [facility] Start: 10-30-2022 End: 10-30-2022 Patient encounter procedure 10/30/2022 Office Visit Neurology Pita Rivera APRN - ASSIGNMENT CLERK [address] [place] [address] [facility] [place] Start: 07-18-2022 BP CONTROLLED (<130/80) BP CONTROLLED (<130/80) [facility] Start: 07-10-2022 End: 07-10-2022 Patient encounter procedure 07/10/2022 Office Visit Neurology iPta Rivera APRN - ASSIGNMENT CLERK [address] [place] [address] [facility] [place] Start: 07-09-2022 End: 07-09-2022 Patient encounter procedure 07/09/2022 Appointment MRI Ac Crabtree MD [address] [place] [address] [facility] Start: 07-04-2022 End: 07-04-2022 Patient encounter procedure 07/04/2022 Office Visit Family Medicine Jonathan Martínez, [address] [place] [phone] [facility] Start: 07-01-2022 End: 07-01-2023 Electronystagmography Electronystagmography Audiology Routine Dizziness and giddiness Expected: 07/01/2022 (Approximate), Expires: [facility] Comment on above: Expected: 07/01/2022 (Approximate), Expi res: 07/01/2023 Start: 06-30-2022 End: 06-30-2023 EEG continuous monitoring EEG continuous monitoring Neurology Routine Syncope and collapse Other amnesia Disorientation, unspecified Unspecified convulsions (CMS/HCC) Expected: 06/30/2022 (Approximate), Expires: 06/30/2023 [employer] Work Phone: Comment on above: Expected: 06/30/2022 (Approximate), Expi res: 06/30/2023 Start: 06-18-2022 HPV TESTING HPV TESTING [facility] Start: 06-18-2022 PAP TESTING PAP TESTING [facility] Start: 06-18-2022 Screening for malignant neoplasm of cervix Cervical Cancer Screening [facility] Start: 05-17-2022 Influenza vaccination [facility] Start: 04-16-2022 Influenza vaccination Flu vaccine (#1) [facility] Start: 03-23-2022 End: 03-23-2022 Patient encounter procedure 03/23/2022 Office Visit Urology Alejandro Alicea MD [address] [facility] [address] [place] [phone] [facility] Start: 12-20-2021 End: 01-18-2023 US KIDNEY/BLADDER US KIDNEY/BLADDER Radiology 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 Expected: 12/20/2021 (Approximate), Expires: 01/18/2023 [facility] Work Phone: Comment on above: Expected: 12/20/2021 (Approximate), Expi res: 01/18/2023 Start: 12-19-2021 End: 02-18-2022 Bacteria identified in Urine by Culture [facility] Work Phone: Comment on above: Expected: 12/19/2021, Expires: 2 Start: 12-19-2021 End: 02-18-2022 Comprehensive metabolic 2000 panel - Serum or Plasma [facility] Work Phone: Comment on above: Expected: 12/19/2021, Expires: 2 Start: 12-19-2021 End: 02-18-2022 Hepatitis C virus Ab [Presence] in Serum [facility] Work Phone: Comment on above: Expected: 12/19/2021, Expires: 2 Start: 12-19-2021 End: 02-18-2022 Urate [Mass/volume] in Serum or Plasma [facility] Work Phone: Comment on above: Expected: 12/19/2021, Expires: 2 Start: 12-19-2021 End: 02-18-2022 Urinalysis complete panel - Urine [facility] Work Phone: Comment on above: Expected: 12/19/2021, Expires: 2 Start: 12-19-2021 End: 02-18-2022 VITAMIN D 25 HYDROXY [facility] Work Phone: Comment on above: Expected: 12/19/2021, Expires: 2 Start: 09-21-2021 COVID-19 VACCINE (3 - Booster for Moderna series) COVID-19 VACCINE (3 - Booster for Moderna series) [facility] Start: 06-16-2021 COVID-19 Vaccine (3 - Booster for Moderna series) COVID-19 Vaccine (3 - Booster for Moderna series) [facility] Start: 06-16-2021 COVID-19 Vaccine (3 - Moderna series) COVID-19 Vaccine (3 - Moderna series) [facility] Start: 05-17-2021 Influenza vaccination Flu vaccine (#1) [facility] Start: 2020 Screening for malignant neoplasm of cervix [facility] Start: 12-30-2017 Varicella vaccination Varicella Vaccines (1 of 2 - 2-dose childhood series) [facility] Start: 01-06-2015 DTaP/Tdap/Td Vaccines (2 - Td or Tdap) DTaP/Tdap/Td Vaccines (2 - Td or Tdap) [facility] Start: 2011 Screening for malignant neoplasm of cervix Pap smear [facility] Start: 2009 Hepatitis B Vaccine (1 of 3 - 19+ 3-dose series) Hepatitis B Vaccine (1 of 3 - 19+ 3-dose series) [facility] Start: 2009 ONE PNEUMOVAX PRIOR TO AGE 65 ONE PNEUMOVAX PRIOR TO AGE 65 [facility] Start: 2008 HEPATITIS C SCREENING HEPATITIS C SCREENING [facility] Start: 2008 Hepatitis C screening Hepatitis C Screening [facility] Start: 2002 Depression Screen Depression Screen [facility] Start: 2002 Depression Screening Depression Screening [facility] Start: 1996 PNEUMOCOCCAL (1 - PCV) PNEUMOCOCCAL (1 - PCV) [facility] Start: 1996 Pneumococcal 0-64 years Vaccine (1 - PCV) Pneumococcal 0-64 years Vaccine (1 - PCV) [facility] Start: 1996 Pneumococcal vaccination Pneumococcal Vaccine (1 of 2 - PCV) [facility] Start: 1996 Pneumococcal Vaccine: Pediatrics (0 to 5 Years) and At-Risk Patients (6 to 64 Years) (1 - PCV) Pneumococcal Vaccine: Pediatrics (0 to 5 Years) and At-Risk Patients (6 to 64 Years) (1 - PCV) [facility] Start: 1995 COVID-19 Vaccine (1) COVID-19 Vaccine (1) [facility] Start: 1991 Varicella vaccine (1 of 2 - 2-dose childhood series) Varicella vaccine (1 of 2 - 2-dose childhood series) [facility] Start: 1990 COVID-19 Vaccine (#1) COVID-19 Vaccine (#1) [facility] Start: 1990 Creatinine measurement Creatinine monitoring [facility] Start: 1990 HEPATITIS B (1 of 3 - 3-dose series) HEPATITIS B (1 of 3 - 3-dose series) [facility] Start: 1990 Hepatitis B Vaccines (1 of 3 - 3-dose series) Hepatitis B Vaccines (1 of 3 - 3-dose series) [facility] Start: 1990 HIV screening HIV Screening [facility] Start: 1990 Lipid panel Lipid Panel [facility] Start: 1990 Potassium monitoring Potassium monitoring [facility] End: 04-18-2023 Bacteria identified in Urine by Culture [facility] Work Phone: Comment on above: Once (Lab) for 1 Occurrences starting until 04/18/2023 Bacteria identified in Urine by Culture URINE CULTURE Microbiology Routine Burning with urination Ordered: 06/21/2024 [facility] Work Phone: Comment on above: Ordered: 06/21/2024 CALCULI ANALYSIS CALCULI ANALYSI S Lab Routine Kidney stone Ordered: 12/19/2021 [facility] Work Phone: Comment on above: Ordered: 12/19/2021 End: 02-19-2022 Culture, Urine [facility] Work Phone: Comment on above: One Time for 1 Occurrences starting 02/2022 until 02/19/2022 Once for 1 Occurrenc es starting 02/19/2022 until 02/19/2022 Cytology Cervical or vaginal smear or scraping study [facility] Work Phone: Comment on above: Ordered: 2024 EKG 12 Lead - Chest Pain EKG 12 Lead - Chest Pain ECG STAT 07/09/2022 10:07 AM EDT [facility] Work Phone: HPV High Risk PCR HPV High Risk PCR Microbiology Routine Screening for cervical cancer 2024 2:36 PM EDT [facility] Patient Education [facility] Work Phone: Patient referral [facility] Work Phone: [facility] Immunizations Immunization Date Immunization Notes Care Provider [facility] 07-09-2023 Seasonal, quadrivale nt, recombinant, injectable influenza vaccine, preservative free Leticia Mary Anneal DEVELOPMENT ADVISOR - ASSIGNMENT CLERK Work Phone: [facility] 07-09-2023 influenza virus vaccine, unspecified formulation Abbie Chaparro RN [facility] 07-04-2022 Influenza, injectabl e, Madin Yvonne Canine Kidney, preservative free, quadrivalent [facility] Work Phone: [facility] 07-04-2022 influenza virus vaccine, unspecified formulation Abbie Garcia RN [facility] 08-11-2019 influenza, injectabl e, quadrivalent, contains preservative Jojo Blaz DEVELOPMENT ADVISOR.ASSIGNMENT CLERK, DNP Work Phone: [facility] 12-02-2017 measles, mumps and rubella virus vaccine [facility] DO Work Phone: [facility] 07-16-2017 influenza, injectabl e, quadrivalent, contains preservative Jojo Blaz DEVELOPMENT ADVISOR.ASSIGNMENT CLERK, DNP Work Phone: [facility] 11-06-2016 influenza, injectabl e, quadrivalent, contains preservative Jojo Blaz DEVELOPMENT ADVISOR.ASSIGNMENT CLERK, DNP Work Phone: [facility] 02-12-2015 measles, mumps and rubella virus vaccine [facility] DO Work Phone: [facility] 12-09-2014 tetanus toxoid, redu ariane diphtheria toxoid, and acellular pertussis vaccine, adsorbed Jojo Cordova APRN.ASSIGNMENT CLERK, DNP Work Phone: [facility] 07-09-2014 influenza, seasonal, injectable Jojo Justin GUIDRY.ASSIGNMENT CLERK, DNP Work Phone: [facility] Payers Date Payer Category Payer Self-pay 2023 Self-pay [id number] 2016 Medicaid [id number] 2016 Unknown [id number] 2014 Medicaid [facility] MEDICAID [id number] 2014-Present [phone] [address] [place] [address] Medicaid [id number] 2014 Medicaid [id number] 1990 Unknown [id number] 1990 Unknown [id number] [id number] 1990 Unknown [id number] [id number] 1990 Unknown [id number] [id number]. 1990 Unknown [id number] [id number] 1990 Unknown [id number] [id number] 1990 Unknown [id number] [id number] 1990 Unknown [id number] [id number] 1990 Unknown [id number] [id number] 1990 Unknown [id number] Unknown Unknown [id number] Unknown [id number] Unknown [id number] [id number] Unknown [id number] [id number] Unknown [id number] Unknown [id number] Social History Date Type Detail Facility Start: 05-14-2017 Tobacco smoking stat us NHIS Never smoked tobacco [facility] Work Phone: Start: 05-14-2017 End: 08-07-2022 Tobacco use and exposure Smokeless tobacco non-user [facility] Work Phone: Start: 12-01-2021 End: 06-21-2024 Alcohol intake Current non-drinker of alcohol (finding) [facility] Work Phone: Start: 1990 Sex Assigned At Not on file [facility] Work Phone: Start: 02-20-2021 End: 04-18-2023 Exposure to SARS-CoV-2 (event) Not sure [facility] Work Phone: Start: 03-22-2021 End: 03-03-2025 Tobacco smoking status NHIS Smokes tobacco daily [facility] End: 11-28-2016 History of tobacco use Smoker [facility] Start: 03-22-2021 End: 08-07-2022 Cigarettes smoked current (pack per day) - Reported 2 [facility] Start: 03-21-2020 End: 07-04-2022 History SDOH Alcohol Frequency 1 [facility] Start: 03-21-2020 History SDOH Alcohol Binge 3 [facility] Start: 03-21-2020 End: 07-04-2022 History SDOH Social Connections Get Together 5 [facility] Start: 03-21-2020 End: 07-04-2022 History SDOH Social Connections Membership 2 [facility] Start: 03-21-2020 History SDOH Social Connections Living 7 [facility] Start: 03-21-2020 History SDOH Physica l Activity MPS 98 [facility] Start: 04-14-2020 History SDOH Financial 4 [facility] Start: 03-21-2020 Education 12 [facility] Start: 02-19-2022 Tobacco Comment 1-2 cigarettes /day. Trying to quit. Currently uses Vape pen. [facility] Work Phone: Start: 03-14-2022 End: 08-07-2022 Alcohol intake Ex-drinker (finding) [facility] Work Phone: Start: 03-14-2022 End: 07-04-2022 Tobacco Comment 3 cigs a day [facility] Work Phone: Start: 11-28-2014 End: 11-28-2016 History of tobacco use Cigarette Smoker [facility] Start: 06-02-2022 End: 07-09-2022 Exposure to SARS-CoV-2 (event) Unable to assess [facility] Start: 07-04-2022 History SDOH Physica l Activity DPW 0 [facility] Work Phone: Start: 08-07-2022 Tobacco smoking stat us INIS Ex-smoker [facility] Start: 02-15-2023 End: 2024 Tobacco smoking status INIS Occasional tobacco smoker [facility] Start: 09-29-2022 End: 02-15-2023 Tobacco use panel [facility] How often to you hav e a drink containing alcohol? Never [facility] How many standard dr inks containing alcohol do you have on a typical day? Patient does not drink [facility] In the past 12 month s, was there a time when you were not able to pay the mortgage or rent on time? Yes [facility] At any time in the p ast 12 months, were you homeless or living in care home [including now]? No [facility] Tobacco Nicotine Use: denies. [facility] Sex Assigned At Sex [facility] Are you now , , , , never or living with a partner? Never [facility] How many standard dr inks containing alcohol do you have on a typical day? 1 or 2 [facility] How often do you hav e 6 or more drinks on 1 occasion? Monthly [facility] How hard is it for y ou to pay for the very basics like food, housing, medical care, and heating Not very hard [facility] Do you feel stress - tense, restless, nervous, or anxious, or unable to sleep at night because your mind is troubled all the time - these days [OSQ] Very much [facility] (I/We) worried jody er (my/our) food would run out before (I/we) got money to buy more. Sometimes true [facility] Tobacco smoking stat [facility] Tobacco smoking consumption unknown [facility] Start: 09-18-2015 None None [facility] Start: 09-18-2015 Spouse/ Significant Other Spouse/ Significant Other [facility] Start: 12-12-2024 Sex Female (finding) [place] Start: 1990 Sex Assigned At Female W [facility] Medical Equipment Procedure Code Equipment Code Equipment Origin al Text Equipment Identifier Dates Stent Uret 6fr 22-30cm [facility] - [id number] Start: 03-15-2023 Stent Uret 6fr 2 4cm [facility] - [id number] - [id number] Start: 03-29-2023 Functional Status Date Assessment Result Facility 03-13-2024 Functional Status ID band on, Call device within reach, Bed in low position, Wheels locked [facility] Mental Status Date Assessment Result Facility 03-03-2025 Cognitive function Level Of Cons ciousness Awake;Alert;Appropriate [facility] Work Phone: 03-13-2024 Mental Status Oriented x 4 [facility] Clinical Notes 10-22-2017 to 03-03-2025 Telephone Encounter - Guilherme Moses MA - 06/25/2024 8:14 AM EDTTelephone Encounter - Guilherme Moses MA - 06/25/2024 8:14 AM EDTPDamaso seay APRN.ASSIGNMENT CLERK - 06/21/2024 1:40 PM EDT Note Date & Type Note Facility 03-03-2025 Radiology Diagnostic study note [facility] Imaging Services [address] [place], [place] [address] Chest PA and Lateral MR#: [id number] Acct: [id number] Name: KENIA ORTIZ Rep #: [id number] : 1990 F 34 From: Shashank Alvarado MD PCP: MARJORIE Mi Status: REG E R Study:Chest PA and Lateral Date of Exam: 03/03/25 Exam# [id number] Ordering Dr: Madan Jeter DO PROCEDURE: CHEST PA AND LATERAL 03/03/2025 REASON FOR EXAM: HYPERTENSION TECHNIQUE: CHEST PA AND LATERAL COMPARISON: Prior study dated September 06, 2024. FINDINGS: Hardware: EKG electrodes are seen. Heart: The heart size is normal. Mediastinum: The mediastinal contour is unremarkable. Lungs: The lungs are clear. Scattered calcified granulomas. Bones: The bones are unremarkable. RAD/Chest PA and Lateral IMPRESSION: NO ACUTE FINDINGS. Reading Location: [facility] CC: MARJORIE Pantoja; Dr. Madan Jeter, ~ Tree Trimmer: Signed [facility] 06-25-2024 Telephone encounter Note Patient notified. Guilherme Moses MA [facility] 06-25-2024 Miscellaneous Notes Patient notified. Guilherme Moses MA Left message for patient to return call for results and recommendations.Jeny Cooper LPN Please let patient know urine culture did reveal UTI. She is on the appropriate antibiotic. Finish this medication and follow-up with PCP if symptoms persist documented in this encounter [facility] 06-23-2024 Telephone encounter Note Left message for patient to return call for results and recommendations.Jeny Cooper LPN [facility] 06-23-2024 Telephone encounter Note Please let patient know urine culture did reveal UTI. She is on the appropriate antibiotic. Finish this medication and follow-up with PCP if symptoms persist [facility] Work Phone: 06-21-2024 Note HNO ID: [id number] Author: DAMASO PALMA APRN.ASSIGNMENT CLERK Service: ? Author Type: Nurse Practitioner Type: Progress Notes Filed: 06/21/2024 13:49 Note Text: Subjective HPI A nontoxic appearing female presents to urgent care with chief complaint of possible UTI. Duration of symptoms 2 days. Associated symptoms dysuria, frequency, and urgency. Patient has history of UTIs in past with similar signs and symptoms. Use of Azo good symptom management. Patient states pain is a 3/10. Patient denies any fevers, flank pain, abdominal pain, nausea, vomiting, vaginal discharge, chance of STDs, chance of , or urological abnormalities. Past medical history prescription medications allergies reviewed. .Patient presents with: Urinary Problem: burning and pressure with urination x 2 days, took azo and started period today PAST MEDICAL HISTORY Diagnosis Date Abnormal Pap smear of cervix 2012 [place] Anemia Anxiety Carpal tunnel syndrome, bilateral 03/22/2021 Chlamydia infection 07/12/2014 Congenital medullary sponge kidney 12/19/2021 Depression Enterocolitis due to Clostridium difficile 05/16/2016 Herpes simplex virus (HSV) infection History of pre-eclampsia in prior , currently Hypertension during Other specified disorder of gallbladder depression PAST SURGICAL HISTORY Procedure Laterality Date COLPOSCOPY CERVIX UPPER/ADJACENT VAGINA Colposcopy LAPROSCOPIC REPAIR UMBILICAL HERNIA 09/20/2016 LAPS SURG CHOLECYSTECTOMY W/CHOLANGIOGRAPHY 07/06/08 LX REPAIR RECURRENT VENTRAL HERNIA 02/18/2018 REPAIR FIRST ABDOMINAL WALL HERNIA 01/06/2019 Hernia repair, incisional SALPINGECTOMY Bilateral 04/17/2018 ALLERGIES Raspberry and Vaccine Adjuvant Emulsion As03 MEDICATIONS acyclovir (ZOVIRAX) 400 mg tablet take 1 tablet by mouth twice a day albuterol HFA (PROVENTIL HFA, VENTOLIN HFA) 90 mcg/actuation inhaler Inhale 2 Puffs as instructed every 6 hours as needed for wheezing/shortness of breath. cholecalciferol, Vitamin D3, (VITAMIN D3) 1,250 mcg (50,000 unit) cap capsule Take 1 capsule by mouth one time a week. (Patient not taking: Reported on 06/21/2024) gabapentin (NEURONTIN) 300 mg capsule Take 1 capsule by mouth daily at bedtime for 60 days. (Patient not taking: Reported on 06/21/2024) gabapentin (NEURONTIN) 100 mg capsule Take 1 capsule by mouth twice daily for 60 days. (Patient not taking: Reported on 06/21/2024) hydroCHLOROthiazide (HYDRODIURIL, ESIDRIX) 25 mg tablet take 1 tablet by mouth once daily escitalopram oxalate (LEXAPRO) 20 mg tablet take 1 tablet by mouth once daily (Patient not taking: Reported on 06/21/2024) buPROPion SR (ZYBAN SR; WELLBUTRIN SR) 150 mg 12 hr tablet take 1 tablet twice a day for SMOKING CESSATION (Patient not taking: Reported on 03/21/2022 ) Miscellaneous Medical Supply Left thumb splint-disp 1 Right thumb splint--disp 1 use as needed to rest the thumbs Dx thumb strain from overuse (Patient not taking: Reported on 03/22/2021 ) Blood Pressure Monitor kit Take blood pressure daily. FAMILY HISTORY Problem Relation Age of Onset Arthritis Mother Osteoarthritis Cancer Father Hypertension Maternal Grandmother Stroke Maternal Grandmother Prostate Cancer Maternal Grandfather Arthritis Maternal Grandfather Breast Cancer Paternal Grandmother Heart Paternal Grandmother Hypertension Paternal Grandmother Social History Tobacco Use Smoking status: Every Day Current packs/day: 2.00 Average packs/day: 2.0 packs/day for 2.0 years (4.0 ttl pk-yrs) Types: Cigarettes Smokeless tobacco: Never Substance Use Topics Alcohol use: No Drug use: Yes Types: Marijuana Comment: Has used marijuana in past BP 128/80 Pulse 96 Temp 37.1 ?C (98.8 ?F) Resp 16 Wt 106.7 kg (235 lb 3.7 oz) LMP 03/15/2022 (Exact Date) SpO2 98% BMI 39.39 kg/m? Review of Systems Constitutional: Negative for chills, fever and malaise/fatigue. Cardiovascular: Negative for chest pain. Gastrointestinal: Negative for abdominal pain, constipation, diarrhea, nausea and vomiting. Genitourinary: Positive for dysuria, frequency and urgency. Negative for flank pain and hematuria. Musculoskeletal: Negative for myalgias. Objective Physical Exam Vitals and nursing note reviewed. Constitutional: General: She is not in acute distress. Appearance: She is not toxic-appearing or diaphoretic. HENT: Head: Normocephalic. Jaw: No trismus. Right Ear: Hearing normal. No decreased hearing noted. No drainage, swelling or tenderness. Tympanic membrane is not perforated, erythematous or bulging. Left Ear: Hearing normal. No decreased hearing noted. No drainage, swelling or tenderness. Tympanic membrane is not perforated, erythematous or bulging. Nose: Nose normal. Mouth/Throat: Pharynx: Uvula midline. No uvula swelling. Tonsils: No tonsillar abscesses. Eyes: Pupils: Pupils are equal, round, and reactiv (more content not included)... [facility] History of Present illness Narrative Subjective HPI A nontoxic appearing female presents to urgent care with chief complaint of possible UTI. Duration of symptoms 2 days. Associated symptoms dysuria, frequency, and urgency. Patient has history of UTIs in past with similar signs and symptoms. Use of Azo good symptom management. Patient states pain is a 3/10. Patient denies any fevers, flank pain, abdominal pain, nausea, vomiting, vaginal discharge, chance of STDs, chance of , or urological abnormalities. Past medical history prescription medications allergies reviewed. .Patient presents with: Urinary Problem: burning and pressure with urination x 2 days, took azo and started period today PAST MEDICAL HISTORY Diagnosis Date Abnormal Pap smear of cervix 2012 [place] An[place] Anxiety Carpal tunnel syndrome, bilateral 03/22/2021 Chlamydia infection 07/12/2014 Congenital medullary sponge kidney 12/19/2021 Depression Enterocolitis due to Clostridium difficile 05/16/2016 Herpes simplex virus (HSV) infection History of pre-eclampsia in prior , currently Hypertension during Other specified disorder of gallbladder depression PAST SURGICAL HISTORY Procedure Laterality Date COLPOSCOPY CERVIX UPPER/ADJACENT VAGINA Colposcopy LAPROSCOPIC REPAIR UMBILICAL HERNIA 09/20/2016 LAPS SURG CHOLECYSTECTOMY W/CHOLANGIOGRAPHY 07/06/08 LX REPAIR RECURRENT VENTRAL HERNIA 02/18/2018 REPAIR FIRST ABDOMINAL WALL HERNIA 01/06/2019 Hernia repair, incisional SALPINGECTOMY Bilateral 04/17/2018 ALLERGIES Raspberry and Vaccine Adjuvant Emulsion As03 MEDICATIONS acyclovir (ZOVIRAX) 400 mg tablet take 1 tablet by mouth twice a day albuterol HFA (PROVENTIL HFA, VENTOLIN HFA) 90 mcg/actuation inhaler Inhale 2 Puffs as instructed every 6 hours as needed for wheezing/shortness of breath. cholecalciferol, Vitamin D3, (VITAMIN D3) 1,250 mcg (50,000 unit) cap capsule Take 1 capsule by mouth one time a week. (Patient not taking: Reported on 06/21/2024) gabapentin (NEURONTIN) 300 mg capsule Take 1 capsule by mouth daily at bedtime for 60 days. (Patient not taking: Reported on 06/21/2024) gabapentin (NEURONTIN) 100 mg capsule Take 1 capsule by mouth twice daily for 60 days. (Patient not taking: Reported on 06/21/2024) hydroCHLOROthiazide (HYDRODIURIL, ESIDRIX) 25 mg tablet take 1 tablet by mouth once daily escitalopram oxalate (LEXAPRO) 20 mg tablet take 1 tablet by mouth once daily (Patient not taking: Reported on 06/21/2024) buPROPion SR (ZYBAN SR; WELLBUTRIN SR) 150 mg 12 hr tablet take 1 tablet twice a day for SMOKING CESSATION (Patient not taking: Reported on 03/21/2022 ) Miscellaneous Medical Supply Left thumb splint-disp 1 Right thumb splint--disp 1 use as needed to rest the thumbs Dx thumb strain from overuse (Patient not taking: Reported on 03/22/2021 ) Blood Pressure Monitor kit Take blood pressure daily. FAMILY HISTORY Problem Relation Age of Onset Arthritis Mother Osteoarthritis Cancer Father Hypertension Maternal Grandmother Stroke Maternal Grandmother Prostate Cancer Maternal Grandfather Arthritis Maternal Grandfather Breast Cancer Paternal Grandmother Heart Paternal Grandmother Hypertension Paternal Grandmother Social History Tobacco Use Smoking status: Every Day Current packs/day: 2.00 Average packs/day: 2.0 packs/day for 2.0 years (4.0 ttl pk-yrs) Types: Cigarettes Smokeless tobacco: Never Substance Use Topics Alcohol use: No Drug use: Yes Types: Marijuana Comment: Has used marijuana in past BP 128/80 Pulse 96 Temp 37.1 C (98.8 F) Resp 16 Wt 106.7 kg (235 lb 3.7 oz) LMP 03/15/2022 (Exact Date) SpO2 98% BMI 39.39 kg/m Review of Systems Constitutional: Negative for chills, fever and malaise/fatigue. Cardiovascular: Negative for chest pain. Gastrointestinal: Negative for abdominal pain, constipation, diarrhea, nausea and vomiting. Genitourinary: Positive for dysuria, frequency and urgency. Negative for flank pain and hematuria. Musculoskeletal: Negative for myalgias. Objective Physical Exam Vitals and nursing note reviewed. Constitutional: General: She is not in acute distress. Appearance: She is not toxic-appearing or diaphoretic. HENT: Head: Normocephalic. Jaw: No trismus. Right Ear: Hearing normal. No decreased hearing noted. No drainage, swelling or tenderness. Tympanic membrane is not perforated, erythematous or bulging. Left Ear: Hearing normal. No decreased hearing noted. No drainage, swelling or tenderness. Tympanic membrane is not perforated, erythematous or bulging. Nose: Nose normal. Mouth/Throat: Pharynx: Uvula midline. No uvula swelling. Tonsils: No tonsillar abscesses. Eyes: Pupils: Pupils are equal, round, and reactive to light. Cardiovascular: Rate and Rhythm: Normal rate and regular rhythm. Pulses: Normal pulses. Pulmonary: Effort: Pulmonary effort is normal. No respiratory distress. Breath sounds: Normal breath sounds. Chest: Chest wall: No tenderness. Abdominal: General: Bowel sounds are normal. There is no distension. Palpations: Abdomen is soft. Abdomen is not rigid. Tenderness: There is no abdominal tenderness. There is no right CVA tenderness, left CVA tenderness, guarding or rebound. Negative signs include Ulloa's sign and McBurney's sign. Musculoskeletal: General: No tenderness. Cervical back: Normal range of motion. Lymphadenopathy: Head: Right side of head: No submental, submandibular, tonsillar, preauricular, posterior auricular or occipital adenopathy. Left side of head: No submental, submandibular, tonsillar, preauricular, posterior auricular or occipital adenopathy. Cervical: Right cervical: No superficial or posterior cervical adenopathy. Left cervical: No superficial or posterior cervical adenopathy. Skin: General: Skin is warm and dry. Findings: No rash. Neurological: General: No focal deficit present. Mental Status: She is alert and oriented to person, place, and time. ASSESSMENT/PLAN: 1. Burning with urination - ICD9: 788.1, ICD10: R30.0 - UA DIP, URINE (POC) - URINE CULTURE Positive for leukocytes nitrites and blood. Treat as acute cystitis. Placed on Keflex. Patient was educated on supportive therapies. Patient will follow up with primary care provider as needed. Patient was instructed to immediately proceed to emergency room for any new, worsening, or symptoms lasting longer than anticipated. The patient's clinical presentation is otherwise unremarkable at this time. Based on exam and clinical finding, the patient is stable for discharge. Plan of care was discussed with patient. Patient verbalizes understanding and agrees to plan of care. This note was generated using Rafter software. It may contain errors in wording, punctuation, or spelling. Damaso Palma APRN.ANYA documented in this encounter [facility] 2024 Evaluation + Plan note Associated Problem(s): Herpes simplex virus (HSV) infection Continue suppressive therapy. [facility] 2024 Miscellaneous Notes Associated Problem(s): Herpes simplex virus (HSV) infection Continue suppressive therapy. Associated Problem(s): Hypertension Controlled. Blood pressure 106/73. Continue benazepril 40 mg daily and hydrochlorothiazide 25 mg daily documented in this encounter [facility] 2024 Miscellaneous Notes Associated Problem(s): Herpes simplex virus (HSV) infection Continue suppressive therapy. Associated Problem(s): Hypertension Controlled. Blood pressure 106/73. Continue benazepril 40 mg daily and hydrochlorothiazide 25 mg daily I did not documented in this encounter [facility] 2024 Evaluation + Plan note Associated Problem(s): Hypertension Controlled. Blood pressure 106/73. Continue benazepril 40 mg daily and hydrochlorothiazide 25 mg daily [facility] 2024 History of Present illness Narrative Patient was identified by name and Date of . Health Maintenance Addressed with Patient at Visit: Pap-pended Phq-completed Lipid-pended Images from the original note were not included. 2024 Kenia Ortiz (: 1990) is a 34 y.o. female , Established patient, here for evaluation of the following chief complaint(s): Gynecologic Exam and Health Maintenance (Pap-pended/Phq-completed/Lipid-pe nded) ASSESSMENT/PLAN: 1. Well woman exam with routine gynecological exam 2. Screening for cervical cancer - Pap Smear 3. Screening for deficiency anemia - CBC 4. Screening for diabetes mellitus - Comprehensive metabolic panel 5. Screening for cholesterol level - Lipid panel 6. Herpes simplex virus (HSV) infection Assessment & Plan: Continue suppressive therapy. Orders: - acyclovir (Zovirax) 400 MG tablet; Take 1 tablet (400 mg) by mouth daily., Starting 2024, Normal 7. Screening for STD (sexually transmitted disease) - Sureswab(R) Advanced Vaginitis Plus, TMA ([facility]) 8. Primary hypertension Assessment & Plan: Controlled. Blood pressure 106/73. Continue benazepril 40 mg daily and hydrochlorothiazide 25 mg daily Follow up in about 3 months (around 06/25/2024) for 3 month medche. SUBJECTIVE/OBJECTIVE: HPI - Kenia Ortiz (: 1990) is a 34 y.o. female , Established patient, here for the evaluation of the following chief complaint(s): Gynecologic Exam and Health Maintenance (Pap-pended/Phq-completed/Lipid-pe nded) Presents for gynecological exam. Denies any acute concerns or complaints. Periods are regular lasting about 5 days. Not currently sexually active. Would like refill of the acyclovir for herpes suppressive therapy. Denies any recent flares. Anxiety depression- seeing counseling monthly, will see psychiatrist- 03/27/2024 at 130 pm the counseling [facility]. States it has been stressful since her mom got temporary custody of her daughter, Shantal. She is hoping to get her daughter back. [id number] currently on benazepril 40 mg, hydrochlorothiazide 25 mg. Prior to Admission medications Medication Sig Start Date End Date Taking? Authorizing Provider acyclovir (Zovirax) 400 MG tablet Take 400 mg by mouth. 03/09/21 Yes Historical Provider, MD benazepril (Lotensin) 40 MG tablet Take 1 tablet (40 mg) by mouth daily. 02/13/24 02/12/25 Yes Leticia RahulenthalBREA - ANYA hydroCHLOROthiazide (HYDRODiuril) 25 MG tablet Take 1 tablet (25 mg) by mouth daily. 02/13/24 04/13/24 Yes Leticia Bridenthal, DEVELOPMENT ADVISOR - ANYA mirtazapine (Remeron) 15 MG tablet Take 15 mg by mouth Nightly. 12/09/23 Yes Historical Provider, albuterol 108 (90 Base) MCG/ACT inhaler Inhale 2 puffs every 6 hours as needed. 03/22/21 03/25/24 Historical Provider, Review of Systems Constitutional: Negative. HENT: Negative. Respiratory: Negative. Cardiovascular: Negative. Gastrointestinal: Negative. Genitourinary: Negative for difficulty urinating, menstrual problem (regular- LMP- 02/24/2024-), vaginal discharge and vaginal pain. Musculoskeletal: Negative. Skin: Negative. Neurological: Negative. Psychiatric/Behavioral: Positive for agitation, decreased concentration, dysphoric mood and sleep disturbance. Negative for self-injury and suicidal ideas. The patient is not nervous/anxious. Vitals: 03/25/24 1404 BP: 106/73 Pulse: 100 Resp: 18 Temp: 37 C (98.6 F) TempSrc: Infrared SpO2: 95% Weight: 237 lb 12.8 oz (108 kg) Physical Exam Constitutional: General: She is not in acute distress. Appearance: Normal appearance. She is not ill-appearing. HENT: Head: Normocephalic and atraumatic. Right Ear: Tympanic membrane normal. Left Ear: Tympanic membrane normal. Nose: Nose normal. Mouth/Throat: Mouth: Mucous membranes are moist. Pharynx: Oropharynx is clear. Uvula midline. No pharyngeal swelling, oropharyngeal exudate or posterior oropharyngeal erythema. Eyes: Conjunctiva/sclera: Conjunctivae normal. Cardiovascular: Rate and Rhythm: Normal rate and regular rhythm. Pulses: Normal pulses. Heart sounds: Normal heart sounds. Pulmonary: Effort: Pulmonary effort is normal. Breath sounds: Normal breath sounds. Chest: Breasts: Salomón Score is 5. Breasts are symmetrical. Right: Normal. No swelling, inverted nipple, mass, nipple discharge, skin change or tenderness. Left: Normal. No swelling, inverted nipple, mass, nipple discharge, skin change or tenderness. Abdominal: General: Bowel sounds are normal. There is no distension. Palpations: Abdomen is soft. There is no mass. Tenderness: There is no abdominal tenderness. There is no right CVA tenderness, left CVA tenderness or guarding. Hernia: A hernia is present. Hernia is present in the umbilical area. Genitourinary: Labia: Right: No rash or tenderness. Left: No rash or tenderness. Urethra: No prolapse, urethral pain, urethral swelling or urethral lesion. Vagina: Normal. Cervix: No cervical motion tenderness. Uterus: Normal. Adnexa: Right adnexa normal and left adnexa normal. Right: No mass, tenderness or fullness. Left: No mass, tenderness or fullness. Rectum: No external hemorrhoid. Musculoskeletal: General: Normal range of motion. Lymphadenopathy: Cervical: No cervical adenopathy. Upper Body: Right upper body: No supraclavicular, axillary or pectoral adenopathy. Left upper body: No supraclavicular, axillary or pectoral adenopathy. Skin: General: Skin is warm and dry. Neurological: Mental Status: She is alert and oriented to person, place, and time. Psychiatric: Mood and Affect: Mood normal. Behavior: Behavior normal. An electronic signature was used to authenticate this note. BREA Meyer CNP 2024 3:57 PM documented in this encounter [facility] 2024 History of Present illness Narrative Patient was identified by name and Date of . Health Maintenance Addressed with Patient at Visit: Pap-pended Phq-completed Lipid-pended Images from the original note were not included. 2024 Kenia Ortiz (: 1990) is a 34 y.o. female , Established patient, here for evaluation of the following chief complaint(s): Gynecologic Exam and Health Maintenance (Pap-pended/Phq-completed/Lipid-pe nded) ASSESSMENT/PLAN: 1. Well woman exam with routine gynecological exam 2. Screening for cervical cancer - Pap Smear 3. Screening for deficiency anemia - CBC 4. Screening for diabetes mellitus - Comprehensive metabolic panel 5. Screening for cholesterol level - Lipid panel 6. Herpes simplex virus (HSV) infection Assessment & Plan: Continue suppressive therapy. Orders: - acyclovir (Zovirax) 400 MG tablet; Take 1 tablet (400 mg) by mouth daily., Starting 2024, Normal 7. Screening for STD (sexually transmitted disease) - Sureswab(R) Advanced Vaginitis Plus, TMA ([facility]) 8. Primary hypertension Assessment & Plan: Controlled. Blood pressure 106/73. Continue benazepril 40 mg daily and hydrochlorothiazide 25 mg daily Follow up in about 3 months (around 06/25/2024) for 3 month medcheck. SUBJECTIVE/OBJECTIVE: [facility] - Kenia Ortiz (: 1990) is a 34 y.o. female , Established patient, here for the evaluation of the following chief complaint(s): Gynecologic Exam and Health Maintenance (Pap-pended/Phq-completed/Lipid-pe nded) Presents for gynecological exam. Denies any acute concerns or complaints. Periods are regular lasting about 5 days. Not currently sexually active. Would like refill of the acyclovir for herpes suppressive therapy. Denies any recent flares. Anxiety depression- seeing counseling monthly, will see psychiatrist- 03/27/2024 at 130 pm the counseling [facility]. States it has been stressful since her mom got temporary custody of her daughter, Shantal. She is hoping to get her daughter back. Pdditjkfoegc-pkqh-[id number] currently on benazepril 40 mg, hydrochlorothiazide 25 mg. Prior to Admission medications Medication Sig Start Date End Date Taking? Authorizing Provider acyclovir (Zovirax) 400 MG tablet Take 400 mg by mouth. 03/09/21 Yes Historical Provider, benazepril (Lotensin) 40 MG tablet Take 1 tablet (40 mg) by mouth daily. 02/13/24 02/12/25 Yes Leticia Dsouza APRN - ASSIGNMENT CLERK hydroCHLOROthiazide (HYDRODiuril) 25 MG tablet Take 1 tablet (25 mg) by mouth daily. 02/13/24 04/13/24 Yes Leticia Dsouza, DEVELOPMENT ADVISOR - ASSIGNMENT CLERK mirtazapine (Remeron) 15 MG tablet Take 15 mg by mouth Nightly. 12/09/23 Yes Historical Provider, albuterol 108 (90 Base) MCG/ACT inhaler Inhale 2 puffs every 6 hours as needed. 03/22/21 03/25/24 Historical Provider, Review of Systems Constitutional: Negative. HENT: Negative. Respiratory: Negative. Cardiovascular: Negative. Gastrointestinal: Negative. Genitourinary: Negative for difficulty urinating, menstrual problem (regular- LMP- 02/24/2024-), vaginal discharge and vaginal pain. Musculoskeletal: Negative. Skin: Negative. Neurological: Negative. Psychiatric/Behavioral: Positive for agitation, decreased concentration, dysphoric mood and sleep disturbance. Negative for self-injury and suicidal ideas. The patient is not nervous/anxious. Vitals: 03/25/24 1404 BP: 106/73 Pulse: 100 Resp: 18 Temp: 37 C (98.6 F) TempSrc: Infrared SpO2: 95% Weight: 237 lb 12.8 oz (108 kg) Physical Exam Constitutional: General: She is not in acute distress. Appearance: Normal appearance. She is not ill-appearing. HENT: Head: Normocephalic and atraumatic. Right Ear: Tympanic membrane normal. Left Ear: Tympanic membrane normal. Nose: Nose normal. Mouth/Throat: Mouth: Mucous membranes are moist. Pharynx: Oropharynx is clear. Uvula midline. No pharyngeal swelling, oropharyngeal exudate or posterior oropharyngeal erythema. Eyes: Conjunctiva/sclera: Conjunctivae normal. Cardiovascular: Rate and Rhythm: Normal rate and regular rhythm. Pulses: Normal pulses. Heart sounds: Normal heart sounds. Pulmonary: Effort: Pulmonary effort is normal. Breath sounds: Normal breath sounds. Chest: Breasts: Salomón Score is 5. Breasts are symmetrical. Right: Normal. No swelling, inverted nipple, mass, nipple discharge, skin change or tenderness. Left: Normal. No swelling, inverted nipple, mass, nipple discharge, skin change or tenderness. Abdominal: General: Bowel sounds are normal. There is no distension. Palpations: Abdomen is soft. There is no mass. Tenderness: There is no abdominal tenderness. There is no right CVA tenderness, left CVA tenderness or guarding. Hernia: A hernia is present. Hernia is present in the umbilical area. Genitourinary: Labia: Right: No rash or tenderness. Left: No rash or tenderness. Urethra: No prolapse, urethral pain, urethral swelling or urethral lesion. Vagina: Normal. Cervix: No cervical motion tenderness. Uterus: Normal. Adnexa: Right adnexa normal and left adnexa normal. Right: No mass, tenderness or fullness. Left: No mass, tenderness or fullness. Rectum: No external hemorrhoid. Musculoskeletal: General: Normal range of motion. Lymphadenopathy: Cervical: No cervical adenopathy. Upper Body: Right upper body: No supraclavicular, axillary or pectoral adenopathy. Left upper body: No supraclavicular, axillary or pectoral adenopathy. Skin: General: Skin is warm and dry. Neurological: Mental Status: She is alert and oriented to person, place, and time. Psychiatric: Mood and Affect: Mood normal. Behavior: Behavior normal. An electronic signature was used to authenticate this note. BREA Meyer CNP 2024 3:57 PM documented in this encounter [facility] 2024 Progress note Formatting of t his note might be different from the original. I did not [facility] 03-16-2024 Telephone encounter Note Noted. Agree with disposition. [facility] 03-16-2024 Miscellaneous Notes Noted. Agree with disposition. S: Patient spoke with [facility] nurse regarding rectal bleeding B: Onset of symptoms/concern started a couple days ago A: Patient states she is having dark red stool that started a couple days ago. Today has gone 4-5 times and all times have been bloody yesterday only went twice. Patient states she feels a little lightheaded and odd. Has felt nauseated all day. Denies fever or vomiting. R: Patient advised to go to the ER and states she will go to [facility] as that is closest to her. Patient understands care advice. No further needs at this time. Patient instructed to call back with new or worsening symptoms. Reason for Disposition Bloody, black, or tarry bowel movements (Exception: Chronic-unchanged black-celaya bowel movements and is taking iron pills or Pepto-Bismol.) Protocols used: Rectal [id number] documented in this encounter [facility] 03-13-2024 Hospital Discharge instructions Patient Education 03/13/2024 17:35:14 Understanding Hemorrhoids Understanding Hemorrhoids Hemorrhoid tissues are cushions of blood vessels that swell slightly during bowel movements. Too much pressure on the anal canal can make these tissues remain enlarged, become inflamed, and cause symptoms. This can happen both inside and outside the anal canal. Parts of the anal canal The parts of the anal canal are: Internal hemorrhoid tissue is in the upper area of the anal canal. The rectum is the last several inches of the colon. This is where stool is stored prior to bowel movements. Anal sphincters are ring-shaped muscles that expand and contract to control the anal opening. External hemorrhoid tissue lies under the anal skin. The anus is the passage between the rectum and the outside of the body. Normal hemorrhoid tissue Hemorrhoid tissues play an important role in helping your body eliminate waste. Food passes from the stomach through the intestines. The waste (stool) then travels through the colon to the rectum. It is stored in the rectum until it s ready to be passed from the anus. During bowel movements, hemorrhoids swell with blood and become slightly larger. This swelling helps protect and cushion the anal canal as stool passes from the body. Once the stool has passed, the tissues stop swelling and return to normal. Problem hemorrhoids Pressure due to straining or other factors can cause hemorrhoid tissues to remain swollen. When this happens to the hemorrhoid tissues in the anal canal they re called internal hemorrhoids. Swollen tissues around the anal opening are called external hemorrhoids. Depending on the location, your symptoms can differ. Internal hemorrhoids often happen in clusters around the wall of the anal canal. They are usually painless. But they may prolapse (protrude out of the anus) due to straining or pressure from hard stool. After the bowel movement is over, they may then reduce (return inside the body). Internal hemorrhoids often bleed. They can also discharge mucus. External hemorrhoids are located at the anal opening, just beneath the skin. These tissues rarely cause problems unless they thrombose (form a blood clot). When this happens, a hard, bluish lump may appear. A thrombosed hemorrhoid also causes sudden, severe pain. In time, the clot may go away on its own. This sometimes leaves a skin tag of tissue stretched by the clot. Hemorrhoid symptoms Hemorrhoid symptoms may include: Pain or a burning sensation Bleeding during bowel movements Protrusion of tissue from the anus Itching around the anus Causes of hemorrhoids There s no single cause of hemorrhoids. Most often, though, they are caused by too much pressure on the anal canal. This can be due to: Chronic (ongoing) constipation Straining during bowel movements Sitting too long on the toilet Strenuous exercise or heavy lifting and childbirth Aging Diarrhea [id number] [employer]. [address] [place], [place] [id number]. All rights reserved. This information is not intended as a substitute for professional medical care. Always follow your healthcare professional's instructions. 03/13/2024 17:35:13 Treating Hemorrhoids: Self-Care Treating Hemorrhoids: Self-Care Follow your healthcare provider s advice about caring for your hemorrhoids at home. Some treatments help relieve symptoms right away. Others involve making changes in your diet and exercise habits. These can help ease constipation and prevent hemorrhoid symptoms from coming back. Relieving symptoms Your healthcare provider may prescribe anti-inflammatory medicine to help ease your symptoms. The following tips will also help relieve pain and swelling. Take sitz baths. Taking a sitz bath means sitting in a few inches of warm bath water. Soaking for 10 minutes twice a day can provide welcome relief from painful hemorrhoids. It can also help the area stay clean. Develop good bowel habits. Use the bathroom when you need to. Don t ignore the urge to move your bowels. This can lead to constipation, hard stools, and straining. Also, don t read while on the toilet. Sit only as long as needed. Wipe gently with soft, unscented toilet tissue or baby wipes. Use ice packs. Placing an ice pack on a thrombosed external hemorrhoid can help relieve pain right away. It will also help reduce the blood clot. Use the ice for 15 to 20 minutes at a time. Keep a cloth between the ice and your skin to prevent skin damage. Use other measures. Laxatives and enemas can help ease constipation. But use them only on your healthcare provider s advice. For symptom relief, try using cotton pads soaked in witch benito. These are available at most drugstores. [id number] hemorrhoid ointments and petroleum jelly can also provide relief. Add fiber to your diet Adding fiber to your diet can help relieve constipation by making stools softer and easier to pass. To increase your fiber intake, your healthcare provider may recommend a bulking agent, such as psyllium. This is a high-fiber supplement available at most grocery stores and drugstores. Eating more fiber-rich foods will also help. There are two types of fiber: Insoluble fiber is the main ingredient in bulking agents. It s also found in foods such as wheat bran, whole-grain breads, fresh fruits, and vegetables. Soluble fiber is found in foods such as oat bran. Although soluble fiber is good for you, it may not ease constipation as much as foods high in insoluble fiber. Drink more water Along with a high-fiber diet, drinking more water can help ease constipation. This is because insoluble fiber absorbs water, making stools soft and bulky. Be sure to drink plenty of water throughout the day. Drinking fruit juices, such as prune juice or apple juice, can also help prevent constipation. Get more exercise Regular exercise aids digestion and helps prevent constipation. It s also great for your health. So talk with your healthcare provider about starting an exercise program. Low-impact activities, such as swimming or walking, are good places to start. Take it easy at first. And remember to drink plenty of water when you exercise. High-fiber foods High-fiber foods offer many benefits. By making your stools softer, they help heal and prevent swollen hemorrhoids. They may also help reduce the risk of colon and rectal cancer. Best of all, they re usually low in calories and taste great. Here are some examples of fiber-rich foods. Whole grains, such as wheat bran, corn bran, and brown rice. Vegetables, especially carrots, broccoli, cabbage, and peas. Fruits, such as apples, bananas, raisins, peaches, and pears. Nuts and legumes, especially peanuts, lentils, and kidney beans. Easy ways to add fiber The tips below offer some simple ways to add more high-fiber foods to your meals. Start your day with a high-fiber breakfast. Eat a wheat bran cereal along with a sliced banana. Or, try peanut butter on whole-wheat toast. Eat carrot sticks for snacks. They re easy to prepare, taste great, and are low in calories. Use whole-grain breads instead of white bread for sandwiches. Eat fruits for treats. Try an apple and some raisins instead of a candy bar. [id number] [employer]. [address] [place] [address]. All rights reserved. This information is not intended as a substitute for professional medical care. Always follow your healthcare professional's instructions. 03/13/2024 17:35:11 Hemorrhoids Hemorrhoids Hemorrhoids are swollen and inflamed veins inside the rectum and near the anus. The rectum is the last several inches of the colon. The anus is the passage between the rectum and the outside of the body. Causes The veins can become swollen due to increased pressure in them. This is most often caused by: Chronic constipation or diarrhea Straining when having a bowel movement Sitting too long on the toilet A low-fiber diet Symptoms Bleeding from the rectum (this may be noticeable after bowel movements) Lump near the anus Itching around the anus Pain around the anus There are different types of hemorrhoids. Depending on the type you have and the severity, you may be able to treat yourself at home. In some cases, a procedure may be the best treatment option. Your healthcare provider can tell you more about this, if needed. Home care General care To get relief from pain or itching, try: oMedicines. Your healthcare provider may recommend stool softeners, suppositories, or laxatives to help manage constipation. Use these exactly as directed. oSitz baths. A sitz bath involves sitting in a few inches of warm bath water. Be careful not to make the water so hot that you burn yourself test it before sitting in it. Soak for about 10 to 15 minutes a few times a day. This may help relieve pain. oTopical products. Your healthcare provider may prescribe or recommend creams, ointments, or pads that can be applied to the hemorrhoid. Use these exactly as directed. Tips to help prevent hemorrhoids Eat more fiber. Fiber adds bulk to stool and absorbs water as it moves through your colon. This makes stool softer and easier to pass. oIncrease the fiber in your diet with more fiber-rich foods. These include fresh fruit, vegetables, and whole grains. oTake a fiber supplement or bulking agent, if advised by your healthcare provider. These include products such as psyllium or methylcellulose. Drink more water. Your healthcare provider may direct you to drink plenty of water. This can help keep stool soft. Be more active. Frequent exercise aids digestion and helps prevent constipation. It may also help make bowel movements more regular. Don t strain during bowel movements. This can make hemorrhoids more likely. Also, don t sit on the toilet for long periods of time. Follow-up care Follow up with your healthcare provider as advised. If a culture or imaging tests were done, someone will let you know the results when they are ready. This may take a few days or longer. If your healthcare provider recommends a procedure for your hemorrhoids, these options can be discussed. Options may include surgery and outpatient office treatments. When to seek medical advice Call your healthcare provider right away if any of these occur: Increased bleeding from the rectum Increased pain around the rectum or anus Weakness or dizziness Call 911 Call 911 if any of these occur: Trouble breathing or swallowing Fainting or loss of consciousness Unusually fast heart rate Vomiting blood Large amounts of blood in stool or black, tarry stools [phone] [employer]. [address] [place] [address], [place] [address]. All rights reserved. This information is not intended as a substitute for professional medical care. Always follow your healthcare professional's instructions. Follow Up Care 03/13/2024 16:49:25 With:FLORIAN AMBROCIO MD Address: [facility] [address] [place] [id number] [phone] When:2-4 days [facility] 03-13-2024 Note Discharge Instructions Thank you for allowing [facility] to assist you with your healthcare needs. The following is important discharge information regarding your hospital visit. Diagnosis from Today's Visit Hemorrhoid What to Do Next Instructions from Your Care Team No qualifying data available. Post Acute Orders No qualifying data available. You Need to Schedule the Following Appointments Follow Up with FLORIAN AMBROCIO MD When:Within 2-4 days Where:[facility] [address] [place] [address] [phone] Allergies NKA Medications Please ask your primary doctor or pharmacist before taking any other medication not listed, including over the counter drugs, herbal medications, vitamins and or supplements as they may interact with your home medications. What How Much When Why Instructions Last Dose Unchanged acyclovir 400 Milligram Unchanged escitalopram (Lexapro) by mouth Once a day Unchanged famotidine (Pepcid 20 mg oral tablet) 1 tab(s) by mouth Two (2) times a day Urticaria Allergic reaction Duration: 7 Days Unchanged hydroCHLOROthiazide by mouth Once a day Unchanged multivitamin, ( Multivitamins) 1 tab(s) by mouth Once a day Please take this list to your next doctor s visit. Bring all medications you take, including over the counter medications, herbals and other supplements with you to your doctor s visit. Patients and families are reminded to discard old lists and to update any records with all medication providers or retail pharmacies. Education Materials Understanding Hemorrhoids Hemorrhoid tissues are cushions of blood vessels that swell slightly during bowel movements. Too much pressure on the anal canal can make these tissues remain enlarged, become inflamed, and cause symptoms. This can happen both inside and outside the anal canal. Parts of the anal canal The parts of the anal canal are: Internal hemorrhoid tissue is in the upper area of the anal canal. The rectum is the last several inches of the colon. This is where stool is stored prior to bowel movements. Anal sphincters are ring-shaped muscles that expand and contract to control the anal opening. External hemorrhoid tissue lies under the anal skin. The anus is the passage between the rectum and the outside of the body. Normal hemorrhoid tissue Hemorrhoid tissues play an important role in helping your body eliminate waste. Food passes from the stomach through the intestines. The waste (stool) then travels through the colon to the rectum. It is stored in the rectum until it s ready to be passed from the anus. During bowel movements, hemorrhoids swell with blood and become slightly larger. This swelling helps protect and cushion the anal canal as stool passes from the body. Once the stool has passed, the tissues stop swelling and return to normal. Problem hemorrhoids Pressure due to straining or other factors can cause hemorrhoid tissues to remain swollen. When this happens to the hemorrhoid tissues in the anal canal they re called internal hemorrhoids. Swollen tissues around the anal opening are called external hemorrhoids. Depending on the location, your symptoms can differ. Internal hemorrhoids often happen in clusters around the wall of the anal canal. They are usually painless. But they may prolapse (protrude out of the anus) due to straining or pressure from hard stool. After the bowel movement is over, they may then reduce (return inside the body). Internal hemorrhoids often bleed. They can also discharge mucus. External hemorrhoids are located at the anal opening, just beneath the skin. These tissues rarely cause problems unless they thrombose (form a blood clot). When this happens, a hard, bluish lump may appear. A thrombosed hemorrhoid also causes sudden, severe pain. In time, the clot may go away on its own. This sometimes leaves a skin tag of tissue stretched by the clot. Hemorrhoid symptoms Hemorrhoid symptoms may include: Pain or a burning sensation Bleeding during bowel movements Protrusion of tissue from the anus Itching around the anus Causes of hemorrhoids There s no single cause of hemorrhoids. Most often, though, they are caused by too much pressure on the anal canal. This can be due to: Chronic (ongoing) constipation Straining during bowel movements Sitting too long on the toilet Strenuous exercise or heavy lifting and childbirth Aging Diarrhea [id number] [employer]. [address] [place] [address], [place] [address]. All rights reserved. This information is not intended as a substitute for professional medical care. Always follow your healthcare professional's instructions. Treating Hemorrhoids: Self-Care Follow your healthcare provider s advice about caring for your hemorrhoids at home. Some treatments help relieve symptoms right away. Others involve making changes in your diet and exercise habits. These can help ease constipation and prevent hemorrhoid symptoms from coming back. Relieving symptoms Your healthcare provider may prescribe anti-inflammatory medicine to help ease your symptoms. The following tips will also help relieve pain and swelling. Take sitz baths. Taking a sitz bath means sitting in a few inches of warm bath water. Soaking for 10 minutes twice a day can provide welcome relief from painful hemorrhoids. It can also help the area stay clean. Develop good bowel habits. Use the bathroom when you need to. Don t ignore the urge to move your bowels. This can lead to constipation, hard stools, and straining. Also, don t read while on the toilet. Sit only as long as needed. Wipe gently with soft, unscented toilet tissue or baby wipes. Use ice packs. Placing an ice pack on a thrombosed external hemorrhoid can help relieve pain right away. It will also help reduce the blood clot. Use the ice for 15 to 20 minutes at a time. Keep a cloth between the ice and your skin to prevent skin damage. Use other measures. Laxatives and enemas can help ease constipation. But use them only on your healthcare provider s advice. For symptom relief, try using cotton pads soaked in witch benito. These are available at most drugstores. Yqju-kbn-rejcdpp hemorrhoid ointments and petroleum jelly can also provide relief. Add fiber to your diet Adding fiber to your diet can help relieve constipation by making stools softer and easier to pass. To increase your fiber intake, your healthcare provider may recommend a bulking agent, such as psyllium. This is a high-fiber supplement available at most grocery stores and drugstores. Eating more fiber-rich foods will also help. There are two types of fiber: Insoluble fiber is the main ingredient in bulking agents. It s also found in foods such as wheat bran, whole-grain breads, fresh fruits, and vegetables. Soluble fiber is found in foods such as oat bran. Although soluble fiber is good for you, it may not ease constipation as much as foods high in insoluble fiber. Drink more water Along with a high-fiber diet, drinking more water can help ease constipation. This is because insoluble fiber absorbs water, making stools soft and bulky. Be sure to drink plenty of water throughout the day. Drinking fruit juices, such as prune juice or apple juice, can also help prevent constipation. Get more exercise Regular exercise aids digestion and helps prevent constipation. It s also great for your health. So talk with your healthcare provider about starting an exercise program. Low-impact activities, such as swimming or walking, are good places to start. Take it easy at first. And remember to drink plenty of water when you exercise. High-fiber foods High-fiber foods offer many benefits. By making your stools softer, they help heal and prevent swollen hemorrhoids. They may also help reduce the risk of colon and rectal cancer. Best of all, they re usually low in calories and taste great. Here are some examples of fiber-rich foods. Whole grains, such as wheat bran, corn bran, and brown rice. Vegetables, especially carrots, broccoli, cabbage, and peas. Fruits, such as apples, bananas, raisins, peaches, and pears. Nuts and legumes, especially peanuts, lentils, and kidney beans. Easy ways to add fiber The tips below offer some simple ways to add more high-fiber foods to your meals. Start your day with a high-fiber breakfast. Eat a wheat bran cereal along with a sliced banana. Or, try peanut butter on whole-wheat toast. Eat carrot sticks for snacks. They re easy to prepare, taste great, and are low in calories. Use whole-grain breads instead of white bread for sandwiches. Eat fruits for treats. Try an apple and some raisins instead of a candy bar. [phone] [employer]. [address] [place] [address], [place] [address]. All rights reserved. This information is not intended as a substitute for professional medical care. Always follow your healthcare professional's instructions. Hemorrhoids Hemorrhoids are swollen and inflamed veins inside the rectum and near the anus. The rectum is the last several inches of the colon. The anus is the passage between the rectum and the outside of the body. Causes The veins can become swollen due to increased pressure in them. This is most often caused by: Chronic constipation or diarrhea Straining when having a bowel movement Sitting too long on the toilet A low-fiber diet Symptoms Bleeding from the rectum (this may be noticeable after bowel movements) Lump near the anus Itching around the anus Pain around the anus There are different types of hemorrhoids. Depending on the type you have and the severity, you may be able to treat yourself at home. In some cases, a procedure may be the best treatment option. Your healthcare provider can tell you more about this, if needed. Home care General care To get relief from pain or itching, try: oMedicines. Your healthcare provider may recommend stool softeners, suppositories, or laxatives to help manage constipation. Use these exactly as directed. oSitz baths. A sitz bath involves sitting in a few inches of warm bath water. Be careful not to make the water so hot that you burn yourself test it before sitting in it. Soak for about 10 to 15 minutes a few times a day. This may help relieve pain. oTopical products. Your healthcare provider may prescribe or recommend creams, ointments, or pads that can be applied to the hemorrhoid. Use these exactly as directed. Tips to help prevent hemorrhoids Eat more fiber. Fiber adds bulk to stool and absorbs water as it moves through your colon. This makes stool softer and easier to pass. oIncrease the fiber in your diet with more fiber-rich foods. These include fresh fruit, vegetables, and whole grains. oTake a fiber supplement or bulking agent, if advised by your healthcare provider. These include products such as psyllium or methylcellulose. Drink more water. Your healthcare provider may direct you to drink plenty of water. This can help keep stool soft. Be more active. Frequent exercise aids digestion and helps prevent constipation. It may also help make bowel movements more regular. Don t strain during bowel movements. This can make hemorrhoids more likely. Also, don t sit on the toilet for long periods of time. Follow-up care Follow up with your healthcare provider as advised. If a culture or imaging tests were done, someone will let you know the results when they are ready. This may take a few days or longer. If your healthcare provider recommends a procedure for your hemorrhoids, these options can be discussed. Options may include surgery and outpatient office treatments. When to seek medical advice Call your healthcare provider right away if any of these occur: Increased bleeding from the rectum Increased pain around the rectum or anus Weakness or dizziness Call 911 Call 911 if any of these occur: Trouble breathing or swallowing Fainting or loss of consciousness Unusually fast heart rate Vomiting blood Large amounts of blood in stool or black, tarry stools [id number] [employer]. [address] [place] [address]. All rights reserved. This information is not intended as a substitute for professional medical care. Always follow your healthcare professional's instructions. Additional Information VACCINATE! IT SAVES LIVES! Members of the community who have not yet received the COVID-19 vaccine and would like to receive it can visit one of [facility] vaccine clinics. There are many vaccine clinic locations within the [facility]. For locations and available times, please visit [email or web address] It is important to note that some COVID mobile vaccine clinics are held outdoors and may be canceled in rainy or stormy conditions. To learn more about pediatric vaccinations (ages 5-11), we invite you to visit the [facility] webpage. https://www.[email or web address].org/pag es/3442-Agpng-Gdkdxjrgzfk-Frequent xm-Nlpgu-Jwthedokl.html To learn more about the COVID-19 vaccine, we invite you to visit the CDC website for a list of frequently asked questions. https://www.cdc.gov/coronavirus/20 19-ncov/vaccines/faq.html [email or web address] Patient Portal Access Instructions: Stay connected with your healthcare team and access your personal medical information anytime with the [email or web address] Patient Portal. If you would like a full copy of your medical records please contact the [facility] Medical Records Department Saturday through Saturday between 8a.m. and 4:30p.m. Please follow the directions below to access the portal: 1.Access the email account you provided upon registration to the hospital.2.Look for an invitation email from [facility].3.Open the email and access the invitation link: Accept Invitation to [email or web address].Fill in the required pappas to create your account. Sign into [email or web address] with your username and password that you created in the above steps to stay up to date. You can then view a summary of results, a summary of your visits, and the ability to download your summaries to your computer or send the information securely to a physician. Remember that your healthcare information is confidential, so carefully consider who you will allow to register on the [employer] Patient Portal for access to your information. You can also access the [employer] Patient Portal on the [employer]. Simply click on Health Records under Health Data and then click on the [employer] logo. HOW TO SAFELY DISPOSE OF PRESCRIPTION MEDICATIONS Please use one of the following methods to safely dispose of your unused medications. 1.Use a drug disposal kit: the drug disposal pouch allows you to safely discard your old and unused drugs. Ask your nurse to give you one when you are discharged.2.Visit a local take-back location: Many local pharmacies and police departments have programs that collect old and unwanted prescription drugs. Call your local pharmacy or go to http://[employer]/5M1Lx0o to find one close to you.3.Make use of household items: Use cat litter or old coffee grounds to dispose medications if other options are not available. Mix your drugs with these household products, seal them in an airtight container and throw it into the garbage. Call [facility]: [phone] to be sure your drugs can be disposed of in this way. Some medicines may require a different approach.4.Never flush your medications down the toilet. IF YOU HAVE BEEN PRESCRIBED AN OPIOIDS FOR PAIN If you have been prescribed an opioid (such as hydrocodone, oxycodone or morphine), it is critical to understand the possible side effects and risks of opioid pain medications. Even when taken as directed, opioids can have several side effects including: Tolerance, meaning you might need to take more of a medication for the same pain relief. Nausea, vomiting and/or constipation. Sleepiness, dizziness, dry mouth, confusion, depression or itching. Physical dependence, meaning you have withdrawal symptoms when a medication is stopped ? this can develop within a few days. KNOW YOUR RESPONSIBILITIES It is important to know exactly how much and how often to take the opioid pain medications you are prescribed. Never take opioids in higher amounts or more often than prescribed. Do not combine opioids with alcohol or other drugs that cause drowsiness, such as benzodiazepines, also known as benzos, including diazepam and alprazolam, muscle relaxants or sleep aids. Never sell or share prescription opioids. This is illegal. Store opioids in a secure place and out of reach of others (including children, family, friends and visitors). The last page(s) of this document has been signed and retained as a CHART COPY Signatures Patient Education Materials Understanding Hemorrhoids Treating Hemorrhoids: Self-Care Hemorrhoids Medication Leaflets My discharge plan and instructions have been reviewed and explained to me and I,KENIA ORTIZ V understand my current condition and have read and understand these discharge instructions. I have received a written copy of the plan/instructions. If I have questions, I am aware that I should contact my doctor. 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 Today has gone 4-5 times and all times have been bloody yesterday only went twice. Patient states she feels a little lightheaded and odd. Has felt nauseated all day. Denies fever or vomiting. R: Patient advised to go to the ER and states she will go to [facility] as that is closest to her. Patient understands care advice. No further needs at this time. Patient instructed to call back with new or worsening symptoms. Reason for Disposition Bloody, black, or tarry bowel movements (Exception: Chronic-unchanged black-celaya bowel movements and is taking iron pills or Pepto-Bismol.) Protocols used: Rectal Eesmikdl-LQPTB-JL [facility] 02-13-2024 Evaluation + Plan note Associated Problem(s): Hypertension Controlled. Home blood pressure readings have been very good. Continue benazepril 40 mg daily and hydrochlorothiazide 25 mg daily, will plan on checking CMP in 1 month at annual physical [facility] 02-13-2024 Miscellaneous Notes Associated Problem(s): Hypertension Controlled. Home blood pressure readings have been very good. Continue benazepril 40 mg daily and hydrochlorothiazide 25 mg daily, will plan on checking CMP in 1 month at annual physical documented in this encounter [facility] 02-13-2024 History of Present illness Narrative Patient verified by last name and . Images from the original note were not included. 02/13/2024 Kenia Ortiz (: 1990) is a 33 y.o. female , Established patient, here for evaluation of the following chief complaint(s): Follow-up (Blood pressure ) ASSESSMENT/PLAN: 1. Primary hypertension Assessment & Plan: Controlled. Home blood pressure readings have been very good. Continue benazepril 40 mg daily and hydrochlorothiazide 25 mg daily, will plan on checking CMP in 1 month at annual physical Orders: - benazepril (Lotensin) 40 MG tablet; Take 1 tablet (40 mg) by mouth daily., Starting Elida 02/13/2024, Until Sat02/12/2025, Normal - hydroCHLOROthiazide (HYDRODiuril) 25 MG tablet; Take 1 tablet (25 mg) by mouth daily., Starting Leida 02/13/2024, Until Sat04/13/2024, Normal Follow up in about 1 month (around 03/15/2024). SUBJECTIVE/OBJECTIVE: SARA - Kenia Ortiz (: 1990) is a 33 y.o. female , Established patient, here for the evaluation of the following chief complaint(s): Follow-up (Blood pressure ) - doing ok- seeing psych next in March. 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 Hypertension- taking lotensin 40 mg and hydrochlorothiazide 25 mg daily without issues home bp good, range 112/70-132/83, did have one elevated at 127/92 (states that she had just taken her medication prior) Prior to Admission medications Medication Sig Start Date End Date Taking? Authorizing Provider acyclovir (Zovirax) 400 MG tablet Take 400 mg by mouth. 03/09/21 Yes Historical Provider, albuterol 108 (90 Base) MCG/ACT inhaler Inhale 2 puffs every 6 hours as needed. 03/22/21 Yes Historical Provider, benazepril (Lotensin) 40 MG tablet Take 1 tablet (40 mg) by mouth daily. 01/15/24 01/14/25 Yes BREA Bee CNP hydroCHLOROthiazide (HYDRODiuril) 25 MG tablet Take 1 tablet (25 mg) by mouth daily. 02/06/24 03/07/24 Yes BREA Bee CNP mirtazapine (Remeron) 15 MG tablet Take 15 mg by mouth Nightly. 12/09/23 Yes Historical Provider, MV-Min-Fe Fum-FA-DHA ( 1 PO) Take 200 mg by mouth in the morning. 05/14/17 Historical Provider, Review of Systems Constitutional: Negative for activity change, chills, fatigue and fever. Respiratory: Negative. Cardiovascular: Negative. Genitourinary: Negative. Neurological: Negative. Vitals: 02/13/24 0948 02/13/24 1020 BP: (!) 140/92 130/87 Pulse: 98 89 SpO2: 98% Weight: 237 lb (108 kg) Height: 5' 5 (1.651 m) Physical Exam Constitutional: General: She is not in acute distress. Appearance: Normal appearance. She is obese. She is not ill-appearing. HENT: Head: Normocephalic and atraumatic. Cardiovascular: Rate and Rhythm: Normal rate and regular rhythm. Pulses: Normal pulses. Heart sounds: Normal heart sounds. Pulmonary: Effort: Pulmonary effort is normal. Breath sounds: Normal breath sounds. Neurological: Mental Status: She is alert and oriented to person, place, and time. An electronic signature was used to authenticate this note. BREA Meyer CNP 02/13/2024 12:17 PM documented in this encounter [facility] 02-06-2024 Evaluation + Plan note Associated Problem(s): Hypertension Uncontrolled, blood pressure 136/99. Continue benazepril 40 mg daily, and hydrochlorothiazide 25 mg daily and follow-up in 1 week [facility] 02-06-2024 Miscellaneous Notes Associated Problem(s): Hypertension Uncontrolled, blood pressure 136/99. Continue benazepril 40 mg daily, and hydrochlorothiazide 25 mg daily and follow-up in 1 week documented in this encounter [facility] 02-06-2024 History of Present illness Narrative Patient was identified by name and Date of . Images from the original note were not included. 02/06/2024 Kenia Ortiz (: 1990) is a 33 y.o. female , Established patient, here for evaluation of the following chief complaint(s): Hypertension (/) ASSESSMENT/PLAN: 1. Primary hypertension Assessment & Plan: Uncontrolled, blood pressure 136/99. Continue benazepril 40 mg daily, and hydrochlorothiazide 25 mg daily and follow-up in 1 week Orders: - hydroCHLOROthiazide (HYDRODiuril) 25 MG tablet; Take 1 tablet (25 mg) by mouth daily., Starting Leida 02/06/2024, Until 03/07/2024, Normal Follow up in about 1 week (around 02/13/2024) for Recheck, Blood pressure check with provider. SUBJECTIVE/OBJECTIVE: SARA Ortiz (: 1990) is a 33 y.o. female , Established patient, here for the evaluation of the following chief complaint(s): Hypertension (/) Patient brings her home blood pressure readings today with her they are also elevated ranging in 126/91 to 135/102. Reports taking Benzazepril 40 mg daily first thing in the morning. Denies any adverse effects of the medication. Denies any chest pain shortness of breath or blurred vision Prior to Admission medications Medication Sig Start Date End Date Taking? Authorizing Provider acyclovir (Zovirax) 400 MG tablet Take 400 mg by mouth. 03/09/21 Yes Historical Provider, albuterol 108 (90 Base) MCG/ACT inhaler Inhale 2 puffs every 6 hours as needed. 03/22/21 Yes Historical Provider, benazepril (Lotensin) 40 MG tablet Take 1 tablet (40 mg) by mouth daily. 01/15/24 01/14/25 Yes Leticia Dsouza APRN - ANYA mirtazapine (Remeron) 15 MG tablet Take 15 mg by mouth Nightly. 12/09/23 Yes Historical Provider, MV-Min-Fe Fum-FA-DHA ( 1 PO) Take 200 mg by mouth in the morning. 05/14/17 Yes Historical Provider, Review of Systems Constitutional: Negative for activity change, chills, fatigue and fever. Respiratory: Negative. Cardiovascular: Negative. Genitourinary: Negative. Neurological: Negative. Vitals: 02/06/24 0908 02/06/24 0921 BP: (!) 134/91 (!) 136/99 Pulse: 101 99 Resp: 20 Temp: 37 C (98.6 F) TempSrc: Infrared SpO2: 97% Weight: 241 lb (109 kg) Physical Exam Constitutional: General: She is not in acute distress. Appearance: Normal appearance. She is obese. She is not ill-appearing. HENT: Head: Normocephalic and atraumatic. Cardiovascular: Rate and Rhythm: Normal rate and regular rhythm. Pulses: Normal pulses. Heart sounds: Normal heart sounds. Pulmonary: Effort: Pulmonary effort is normal. Breath sounds: Normal breath sounds. Neurological: Mental Status: She is alert and oriented to person, place, and time. An electronic signature was used to authenticate this note. BREA Meyer CNP 02/06/2024 12:50 PM documented in this encounter [facility] 01-28-2024 Evaluation + Plan note Associated Problem(s): Hypertension Uncontrolled, did not take her medication today. Patient to take benazepril 40 mg daily and follow-up next week for blood pressure check. [facility] 01-28-2024 Miscellaneous Notes Associated Problem(s): Hypertension Uncontrolled, did not take her medication today. Patient to take benazepril 40 mg daily and follow-up next week for blood pressure check. documented in this encounter [facility] 01-28-2024 History of Present illness Narrative Patient was identified by name and Date of . Images from the original note were not included. 01/28/2024 Kenia Otriz (: 1990) is a 33 y.o. female , Established patient, here for evaluation of the following chief complaint(s): Hypertension ASSESSMENT/PLAN: 1. Primary hypertension Assessment & Plan: Uncontrolled, did not take her medication today. Patient to take benazepril 40 mg daily and follow-up next week for blood pressure check. Follow up in about 1 week (around 02/04/2024). SUBJECTIVE/OBJECTIVE: HPI - Kenia Ortiz (: 1990) is a 33 y.o. female , Established patient, here for the evaluation of the following chief complaint(s): Hypertension Home blood pressure readings have been good 134/81, 123/89 and 130/89. Does state she forgot to take it today for some reason. No chest pain or shortness of breath. Does report getting some headaches. Reports doing ok at home and living with some friends. Prior to Admission medications Medication Sig Start Date End Date Taking? Authorizing Provider acyclovir (Zovirax) 400 MG tablet Take 400 mg by mouth. 03/09/21 Yes Historical Provider, albuterol 108 (90 Base) MCG/ACT inhaler Inhale 2 puffs every 6 hours as needed. 03/22/21 Yes Historical Provider, benazepril (Lotensin) 40 MG tablet Take 1 tablet (40 mg) by mouth daily. 01/15/24 01/14/25 Yes Leticia Dsouza APRN - ANYA mirtazapine (Remeron) 15 MG tablet Take 15 mg by mouth Nightly. 12/09/23 Yes Historical Provider, MV-Min-Fe Fum-FA-DHA ( 1 PO) Take 200 mg by mouth in the morning. 05/14/17 Yes Historical Provider, Review of Systems Constitutional: Negative. Respiratory: Negative. Cardiovascular: Negative. Neurological: Negative. Vitals: 01/28/24 1358 01/28/24 1412 BP: (!) 152/94 (!) 147/98 Pulse: 92 Resp: 16 Temp: 36.5 C (97.7 F) TempSrc: Infrared SpO2: 97% Weight: 240 lb (109 kg) Physical Exam Constitutional: General: She is not in acute distress. Appearance: Normal appearance. She is obese. She is not ill-appearing. HENT: Head: Normocephalic and atraumatic. Eyes: Conjunctiva/sclera: Conjunctivae normal. Cardiovascular: Rate and Rhythm: Normal rate and regular rhythm. Pulses: Normal pulses. Heart sounds: Normal heart sounds. Pulmonary: Effort: Pulmonary effort is normal. Breath sounds: Normal breath sounds. Musculoskeletal: Right lower leg: No edema. Left lower leg: No edema. Neurological: Mental Status: She is alert and oriented to person, place, and time. An electronic signature was used to authenticate this note. BREA Bee CNP 01/28/2024 4:37 PM documented in this encounter [facility] 01-28-2024 Instructions BREA Bee CNP - 01/28/2024 2:00 PM EDT Make sure to take your blood pressure medication every day. documented in this encounter [facility] 01-15-2024 Evaluation + Plan note Associated Problem(s): Hypertension Uncontrolled, blood pressure 145/94, increase benazepril from 20 mg daily to 40 mg daily and return in 2 weeks [facility] 01-15-2024 Miscellaneous Notes Associated Problem(s): Hypertension Uncontrolled, blood pressure 145/94, increase benazepril from 20 mg daily to 40 mg daily and return in 2 weeks documented in this encounter [facility] 01-15-2024 Miscellaneous Notes Associated Problem(s): Hypertension Uncontrolled, blood pressure 145/94, increase benazepril from 20 mg daily to 40 mg daily and return in 2 weeks Addended by: LETICIA DSOUZA on: 01/16/2024 02:19 PM Modules accepted: Level of Service documented in this encounter [facility] 01-15-2024 History of Present illness Narrative Patient was identified by name and Date of . Images from the original note were not included. 01/15/2024 Kenia Ortiz (: 1990) is a 33 y.o. female , Established patient, here for evaluation of the following chief complaint(s): Hypertension ASSESSMENT/PLAN: 1. Primary hypertension Assessment & Plan: Uncontrolled, blood pressure 145/94, increase benazepril from 20 mg daily to 40 mg daily and return in 2 weeks Orders: - benazepril (Lotensin) 40 MG tablet; Take 1 tablet (40 mg) by mouth daily., Starting 01/15/2024, Until Leida 01/14/2025, Normal Follow up in about 2 weeks (around 01/29/2024) for Blood pressure check with provider. SUBJECTIVE/OBJECTIVE: HPI - Kenia Ortiz (: 1990) is a 33 y.o. female , Established patient, here for the evaluation of the following chief complaint(s): Hypertension Presents for 2-week follow-up for hypertension. Increased benazepril from 10 mg daily to 20 mg daily. Reports home blood pressure readings have remained elevated greater than 140/90 consistently at home. Reports taking benazepril 20 mg this am around 0830. (Hasn't picked up the new prescription, has been taking 2 of the 10 mg tabs at home) Prior to Admission medications Medication Sig Start Date End Date Taking? Authorizing Provider acyclovir (Zovirax) 400 MG tablet Take 400 mg by mouth. 03/09/21 Yes Historical Provider, albuterol 108 (90 Base) MCG/ACT inhaler Inhale 2 puffs every 6 hours as needed. 03/22/21 Yes Historical Provider, benazepril (Lotensin) 20 MG tablet Take 1 tablet (20 mg) by mouth daily. 01/01/24 01/31/24 Yes Leticia Dsouza, DEVELOPMENT ADVISOR - ASSIGNMENT CLERK mirtazapine (Remeron) 15 MG tablet Take 15 mg by mouth Nightly. 12/09/23 Yes Historical Provider, MV-Min-Fe Fum-FA-DHA ( 1 PO) Take 200 mg by mouth in the morning. 05/14/17 Yes Historical Provider, Review of Systems Eyes: Negative for visual disturbance. Respiratory: Negative. Cardiovascular: Negative. Neurological: Positive for headaches. Negative for dizziness and light-headedness. Vitals: 01/15/24 1351 01/15/24 1414 BP: (!) 162/80 (!) 145/94 Pulse: (!) 118 110 Resp: 16 Temp: 36.2 C (97.1 F) TempSrc: Infrared SpO2: 97% Weight: 235 lb (107 kg) Physical Exam Constitutional: General: She is not in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 General: No swelling. Cervical back: Neck supple. Skin: General: Skin is warm and dry. Capillary Refill: Capillary refill takes less than 2 seconds. Neurological: Mental Status: She is alert. Psychiatric: Mood and Affect: Mood normal. DIAGNOSTIC RESULTS RADIOLOGY (Per Emergency Physician): Interpretation per the Radiologist below, if available at the time of this note: CT head wo IV contrast Final Result 1. Normal CT head. Report Dictated on Electronically Signed By: Julio Cunningham MD Electronically Signed Date/Time: 08/30/2023 10:02 AM EST EKG Interpretation: LABS: Labs Reviewed CBC WITH AUTO DIFFERENTIAL - Abnormal Result Value Auto WBC 11.1 (*) RBC 4.73 Hemoglobin 14.7 Hematocrit 41.8 MCV 88.4 MCH 31.1 MCHC 35.2 RDW 13.0 Platelets 316 MPV 7.2 (*) nRBC 0.2 Neutrophils Relative 56.3 Lymphocytes Relative 33.1 Monocytes Relative 7.5 Eosinophils Relative 2.2 Basophils Relative 0.9 Neutrophils Absolute 6.2 Lymphocytes Absolute 3.7 Monocytes Absolute 0.8 Eosinophils Absolute 0.2 Basophils Absolute 0.1 COMPREHENSIVE METABOLIC PANEL - Abnormal SODIUM 139 POTASSIUM 3.3 (*) CHLORIDE 103 CARBON DIOXIDE 22 ANION GAP 14 (*) UREA NITROGEN 14 CREATININE 0.73 GLUCOSE 110 (*) CALCIUM 10.0 AST (SGOT) 24 ALT 21 ALKALINE PHOSPHATASE 80 ALBUMIN 4.5 BILIRUBIN, TOTAL 1.0 TOTAL PROTEIN 7.9 eGFR >90.0 PROLACTIN All other labs were within normal range or not returned as of this dictation. EMERGENCY DEPARTMENT COURSE and DIFFERENTIAL DIAGNOSIS/MDM: Vitals: Vitals: 08/30/23 0807 BP: (!) 157/113 BP Location: Left arm Patient Position: Sitting Pulse: 82 Resp: 18 Temp: 37 C (98.6 F) TempSrc: Oral SpO2: 99% Weight: 90.7 kg (200 lb) Medications Administered in the ED: Medications sodium chloride 0.9 % bolus 1,000 mL (1,000 mL IntraVENous New Bag 08/30/23 0820) Estrellita NICOLE MD am the electoral officer of record. PROCEDURES: Unless otherwise noted below, none Procedures Differential Diagnosis Considerations: Differential diagnosis includes seizure, pseudoseizure, metabolic abnormality. ED testing and evaluation will be obtained to help differentiate these diagnostic possibilities and determine the most likely cause. Sources of History: I evaluated other historical sources including previous outpatient records and admission records. ED Course: In the emergency department I initially evaluated the patient with a history and physical examination in order to determine diagnostic testing and therapeutic care. On the basis of this history and physical examination laboratory work will be obtained. The patient was given intravenous fluid hydration. CAT scan of the head will be obtained as well because of the history. Reassessment: The patient has been stable in the emergency department. CAT scan demonstrates no acute findings. The patient appears to have had a breakthrough seizure with a history of pseudoseizures. She is advised to resume normal routine. Consideration of Admission/Observation: I considered admission for this patient, however, at this time the patient appears to be stable. I do not believe that the patient would benefit from admission at this time. I believe the patient can follow-up with the primary care physician. The patient is advised to return to the emergency department if symptoms change or worsen where admission may need to be considered at a another time. Independent Interpretation of Tests: I independently evaluated the results of the patient's diagnostic testing in the context of the patient's presentation. Diagnostic Tests Considered but not Performed: All necessary testing will be obtained. Prescription Medications Considered but not Prescribed: I considered the prescription and administration of narcotics for this patient's discomfort. However, at this time I do not believe that narcotics would be indicated. Chronic Conditions Affecting Care: None FINAL IMPRESSION 1. Seizure (HCC) 2. Psychogenic nonepileptic seizure DISPOSITION Discharge 08/30/2023 10:13:40 AM PATIENT REFERRED TO: Devin Bernal MD [address] [place] [id number] In 3 days DISCHARGE MEDICATIONS: New Prescriptions No medications on file (Comment: Please note this report has been produced using speech recognition software and may contain errors related to that system including errors in grammar, punctuation, and spelling, as well as words and phrases that may be inappropriate. If there are any questions or concerns please feel free to contact the dictating provider for clarification.) SHALONDA NICOLE MD (electronically signed) Emergency Medicine Provider Shalonda Nicole MD 08/30/23 1014 [facility] 07-09-2023 Evaluation + Plan note Associated Problem(s): Anxiety and depression Poorly controlled. Denies any adverse effects of the medication is only been 1 week since starting. Recommend continuing fluoxetine 20 mg daily and establishing with a counselor. Follow-up in approximately 4 weeks sooner for worsening or failure for symptoms to improve [facility] 07-09-2023 Miscellaneous Notes Associated Problem(s): Anxiety and depression Poorly controlled. Denies any adverse effects of the medication is only been 1 week since starting. Recommend continuing fluoxetine 20 mg daily and establishing with a counselor. Follow-up in approximately 4 weeks sooner for worsening or failure for symptoms to improve Associated Problem(s): Hypertension Improved. Continue benazepril 10 mg and follow-up as directed documented in this encounter [facility] 07-09-2023 Evaluation + Plan note Associated Problem(s): Hypertension Improved. Continue benazepril 10 mg and follow-up as directed [facility] 07-09-2023 History of Present illness Narrative Patient was identified by name and Date of . Patient agreeable for influenza vaccine-but had reaction when younger-discuss vaccine with provider-does not recall last time she had flu vaccine Patient was identified by name and Date Of . After obtaining informed consent, Immunization(s) were ordered by provider. The patient and or Family/Guardian was instructed on the benefits and risks related to the vaccine or toxoid. Information given to the patient and or Family/Guardian with signs and symptoms of adverse effects and when to seek medical attention. Site was cleansed with an alcohol swab, immunization(s) were given, and bandage(s) were applied to injection site. Patient tolerated well, advised patient and or Family/Guardian to stay in the office 20 minutes after injection has been given to observe for any reaction. Immunization(s) was given by Aggie D'Virgie, MA. Images from the original note were not included. 07/09/2023 Kenia Ortiz (: 1990) is a 33 y.o. female , Established patient, here for evaluation of the following chief complaint(s): Follow-up, Hypertension, Depression (/), and Flu Vaccine (Patient agreeable for influenza vaccine-but had reaction when younger-discuss vaccine with provider-does not recall last time she had flu vaccine) ASSESSMENT/PLAN: 1. Anxiety and depression Assessment & Plan: Poorly controlled. Denies any adverse effects of the medication is only been 1 week since starting. Recommend continuing fluoxetine 20 mg daily and establishing with a counselor. Follow-up in approximately 4 weeks sooner for worsening or failure for symptoms to improve 2. Influenza vaccine needed - Flu vaccine, quadrivalent, recombinant, preservative free 3. Primary hypertension Assessment & Plan: Improved. Continue benazepril 10 mg and follow-up as directed Follow up in about 1 month (around 08/09/2023). SUBJECTIVE/OBJECTIVE: HPI - Kenia Ortiz (: 1990) is a 33 y.o. female , Established patient, here for the evaluation of the following chief complaint(s): Follow-up, Hypertension, Depression (/), and Flu Vaccine (Patient agreeable for influenza vaccine-but had reaction when younger-discuss vaccine with provider-does not recall last time she had flu vaccine) Presents for follow-up depression and anxiety. Was recently started on fluoxetine 20 mg, reports that she Is taking fluoxetine 20 mg daily, and is using alarm to remind her to take it. Doing well, denies any adverse effects of medication. States that [facility] has recommended counseling services for her and her daughter which she is in the process of getting set up with. Significant other at home is also probably going to be going to counseling services through [facility] provider. Prior to Admission medications Medication Sig Start Date End Date Taking? Authorizing Provider acyclovir (Zovirax) 400 MG tablet Take 400 mg by mouth. 03/09/21 Yes Historical Provider, albuterol 108 (90 Base) MCG/ACT inhaler Inhale 2 puffs every 6 hours as needed. 03/22/21 Yes Historical Provider, benazepril (Lotensin) 10 MG tablet Take 1 tablet (10 mg) by mouth daily. 07/02/23 Yes BREA Bee CNP FLUoxetine (PROzac) 20 MG capsule Take 1 capsule (20 mg) by mouth daily. 07/02/23 08/31/23 Yes BREA Bee CNP MV-Min-Fe Fum-FA-DHA ( 1 PO) Take 200 mg by mouth in the morning. 05/14/17 Yes Historical Provider, Review of Systems Constitutional: Positive for appetite change. Negative for activity change, chills, fatigue and fever. HENT: Negative. Respiratory: Negative. Genitourinary: Negative. Neurological: Negative. Psychiatric/Behavioral: Positive for decreased concentration, dysphoric mood and sleep disturbance (sleeping too much). Vitals: 07/09/23 1313 07/09/23 1354 BP: (!) 132/90 (!) 130/90 Pulse: 98 98 Resp: 20 Temp: 36.6 C (97.9 F) TempSrc: Infrared SpO2: 99% Weight: 198 lb (89.8 kg) Physical Exam Constitutional: General: She is not in acute distress. Appearance: Normal appearance. She is not ill-appearing. HENT: Head: Normocephalic and atraumatic. Cardiovascular: Rate and Rhythm: Normal rate and regular rhythm. Pulmonary: Effort: Pulmonary effort is normal. Breath sounds: Normal breath sounds. Skin: General: Skin is warm and dry. Neurological: Mental Status: She is alert and oriented to person, place, and time. An electronic signature was used to authenticate this note. BREA Bee CNP 07/09/2023 4:52 PM documented in this encounter [facility] 07-02-2023 Evaluation + Plan note Associated Problem(s): Hypertension Uncontrolled. Restart benazepril. Follow up in 1 week. [facility] 07-02-2023 Miscellaneous Notes Associated Problem(s): Hypertension Uncontrolled. Restart benazepril. Follow up in 1 week. Associated Problem(s): Anxiety and depression Poorly controlled. Denies suicidal or homicidal ideation. Stop escitalopram and start fluoxetine 20 mg daily. Follow up in 1 week. Get established with counseling. documented in this encounter [facility] 07-02-2023 Miscellaneous Notes Associated Problem(s): Hypertension Uncontrolled. Restart benazepril. Follow up in 1 week. Associated Problem(s): Anxiety and depression Poorly controlled. Denies suicidal or homicidal ideation. Stop escitalopram and start fluoxetine 20 mg daily. Follow up in 1 week. Get established with counseling. Addended by: LETICIA DSOUZA on: 07/04/2023 05:38 PM Modules accepted: Level of Service documented in this encounter [facility] 07-02-2023 Evaluation + Plan note Associated Problem(s): Anxiety and depression Poorly controlled. Denies suicidal or homicidal ideation. Stop escitalopram and start fluoxetine 20 mg daily. Follow up in 1 week. Get established with counseling. [facility] 07-02-2023 Note Poorly controlled. D enies suicidal or homicidal ideation. Stop escitalopram and start fluoxetine 20 mg daily. Follow up in 1 week. Get established with counseling. [facility] 07-02-2023 History of Present illness Narrative Patient was identified by name and Date of . Images from the original note were not included. 07/02/2023 Kenia Ortiz (: 1990) is a 33 y.o. female , New patient, here for evaluation of the following chief complaint(s): Medication Problem ASSESSMENT/PLAN: 1. Anxiety and depression Assessment & Plan: Poorly controlled. Denies suicidal or homicidal ideation. Stop escitalopram and start fluoxetine 20 mg daily. Follow up in 1 week. Get established with counseling. Orders: - FLUoxetine (PROzac) 20 MG capsule; Take 1 capsule (20 mg) by mouth daily., Starting Sat07/02/2023, Until 08/31/2023, Normal 2. Primary hypertension Assessment & Plan: Uncontrolled. Restart benazepril. Follow up in 1 week. Orders: - benazepril (Lotensin) 10 MG tablet; Take 1 tablet (10 mg) by mouth daily., Starting Sat07/02/2023, Normal Follow up in about 1 week (around 07/09/2023) for Recheck. SUBJECTIVE/OBJECTIVE: HPI - Kenia Ortiz presents as new patient, previous primary care provider Mauricio, last seen couple months ago by previous provider. Specialists/other providers? Yes, describe: none right now, previously urology, Was going to [facility] in [place]. Chief complaint(s): Medication Problem Htn- elevated supposed to be on benazepril 10 mg - currently not taking. Forgets to take. Needs refill. Anxiety and depression. PHQ9 and LOLY 7 positive. Denies SI/HI. Reports recent increased stressors at home and has CPS evaluating the situation and home d/t child's complaints at school about not feeling safe at home d/t recent verbal argument with significant other. States she will be getting counseling through [facility]. Lexapro most recently and bupropion in the past- states she had to stop bupropion because of a urine drug screening problem? Denies being in counseling. Did not think the lexapro was helping much and effected her libido. Uses marijuana 2-3 times per week, denies any other street drug use. Has 2 other children not in her custody. 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 LEFT URETEROSCOPY HOLMIUM LASER LITHOTRIPSY, LEFT STENT CHANGE TUBAL LIGATION 2019 VENTRAL HERNIA REPAIR 2017 twice Family History Problem Relation Name Age of Onset No Known Problems Mother Cancer Father unsure of type No Known Problems Sister No Known Problems Sister No Known Problems Brother No Known Problems Brother No Known Problems Brother Social History Socioeconomic History Marital status: Single Spouse name: Not on file Number of children: Not on file Years of education: Not on file Highest education level: Not on file Occupational History Not on file Tobacco Use Smoking status: Some Days Packs/day: 1 Types: Cigarettes Smokeless tobacco: Never Vaping Use Vaping Use: Never used Substance and Sexual Activity Alcohol use: Not Currently Drug use: Yes Types: Marijuana Comment: vape and smoke. 2-3 times a week Sexual activity: Yes Other Topics Concern Not on file Social History Narrative Engaged to Jeramie, has 2 dtrs and one son, SMOKER. Unemployed, of note does not have custody of her 2 oldest kids, did not divulge information. Presently her youngest daughter lives with her and her boyfriend. Social Determinants of Health Financial Resource Strain: Not on file Food Insecurity: Not on file Transportation Needs: No Transportation Needs (03/14/2023) PRAPARE - Transportation Lack of Transportation (Medical): No Lack of Transportation (Non-Medical): No Physical Activity: Not on file Stress: Not on file Social Connections: Not on file Intimate Partner Violence: Not At Risk (03/15/2023) Humiliation, Afraid, Rape, and Kick questionnaire Fear of Current or Ex-Partner: No Emotionally Abused: No Physically Abused: No Sexually Abused: No Housing Stability: High Risk (03/14/2023) Housing Stability Vital Sign Unable to Pay for Housing in the Last Year: Yes Number of Places Lived in the Last Year: 1 Unstable Housing in the Last Year: No Prior to Admission medications Medication Sig Start Date End Date Taking? Authorizing Provider acyclovir (Zovirax) 400 MG tablet Take 400 mg by mouth. 03/09/21 Yes Historical Provider, albuterol 108 (90 Base) MCG/ACT inhaler Inhale 2 puffs every 6 hours as needed. 03/22/21 Yes Historical Provider, benazepril (Lotensin) 10 MG tablet Take 1 tablet (10 mg) by mouth daily. 02/14/23 Yes Jonathan Martínez, DO escitalopram (Lexapro) 20 MG tablet Take 1 tablet (20 mg) by mouth daily for 90 doses. 11/06/22 07/02/23 Yes Jonathan Martínez, DO MV-Min-Fe Fum-FA-DHA ( 1 PO) Take 200 mg by mouth in the morning. 05/14/17 Yes Historical Provider, oxybutynin XL (Ditropan XL) 10 MG 24 hr tablet Take 1 tablet (10 mg) by mouth daily. Do not crush, chew, or split. Patient not taking: Reported on 07/02/2023 03/18/23 Heri Brandt APRN - ANYA tamsulosin (Flomax) 0.4 MG 24 hr capsule Take 1 capsule (0.4 mg) by mouth daily. Patient not taking: Reported on 07/02/2023 03/29/23 06/27/23 Elise Valero MD Review of Systems Constitutional: Positive for appetite change and fatigue. Negative for activity change and chills. HENT: Negative. Respiratory: Negative. Genitourinary: Negative. Neurological: Negative. Psychiatric/Behavioral: Positive for decreased concentration, dysphoric mood and sleep disturbance (sleeping too much). Vitals: 07/02/23 1044 07/02/23 1134 BP: (!) 165/116 (!) 159/113 Pulse: 88 Resp: 16 Temp: 36.7 C (98 F) TempSrc: Infrared SpO2: 98% Weight: 200 lb 9.6 oz (91 kg) Physical Exam Constitutional: General: She is not in acute distress. Appearance: Normal appearance. She is not ill-appearing. HENT: Head: Normocephalic and atraumatic. Eyes: Conjunctiva/sclera: Conjunctivae normal. Cardiovascular: Rate and Rhythm: Normal rate and regular rhythm. Pulses: Normal pulses. Heart sounds: Normal heart sounds. Pulmonary: Effort: Pulmonary effort is normal. Breath sounds: Normal breath sounds. Neurological: Mental Status: She is alert and oriented to person, place, and time. Psychiatric: Mood and Affect: Mood normal. Behavior: Behavior normal. Thought Content: Thought content normal. Judgment: Judgment normal. An electronic signature was used to authenticate this note. BREA Bee CNP 07/02/2023 3:03 PM documented in this encounter [facility] 07-02-2023 History of Present illness Narrative Patient was identified by name and Date of . Images from the original note were not included. 07/02/2023 Kenia Ortiz (: 1990) is a 33 y.o. female , New patient, here for evaluation of the following chief complaint(s): Medication Problem ASSESSMENT/PLAN: 1. Anxiety and depression Assessment & Plan: Poorly controlled. Denies suicidal or homicidal ideation. Stop escitalopram and start fluoxetine 20 mg daily. Follow up in 1 week. Get established with counseling. Orders: - FLUoxetine (PROzac) 20 MG capsule; Take 1 capsule (20 mg) by mouth daily., Starting 07/02/2023, Until 08/31/2023, Normal 2. Primary hypertension Assessment & Plan: Uncontrolled. Restart benazepril. Follow up in 1 week. Orders: - benazepril (Lotensin) 10 MG tablet; Take 1 tablet (10 mg) by mouth daily., Starting 07/02/2023, Normal Follow up in about 1 week (around 07/09/2023) for Recheck. SUBJECTIVE/OBJECTIVE: HPI - Kenia Sandovaln presents as new patient, previous primary care provider Mauricio, last seen couple months ago by previous provider. Specialists/other providers? Yes, describe: none right now, previously urology, Was going to [facility] in [place]. Chief complaint(s): Medication Problem Htn- elevated supposed to be on benazepril 10 mg - currently not taking. Forgets to take. Needs refill. Anxiety and depression. PHQ9 and LOLY 7 positive. Denies SI/HI. Reports recent increased stressors at home and has CPS evaluating the situation and home d/t child's complaints at school about not feeling safe at home d/t recent verbal argument with significant other. States she will be getting counseling through children[facility]' services referral. Lexapro most recently and bupropion in the past- states she had to stop bupropion because of a urine drug screening problem? Denies being in counseling. Did not think the lexapro was helping much and effected her libido. Uses marijuana 2-3 times per week, denies any other street drug use. Has 2 other children not in her custody. 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 LEFT URETEROSCOPY HOLMIUM LASER LITHOTRIPSY, LEFT STENT CHANGE TUBAL LIGATION 2019 VENTRAL HERNIA REPAIR 2017 twice Family History Problem Relation Name Age of Onset No Known Problems Mother Cancer Father unsure of type No Known Problems Sister No Known Problems Sister No Known Problems Brother No Known Problems Brother No Known Problems Brother Social History Socioeconomic History Marital status: Single Spouse name: Not on file Number of children: Not on file Years of education: Not on file Highest education level: Not on file Occupational History Not on file Tobacco Use Smoking status: Some Days Packs/day: 1 Types: Cigarettes Smokeless tobacco: Never Vaping Use Vaping Use: Never used Substance and Sexual Activity Alcohol use: Not Currently Drug use: Yes Types: Marijuana Comment: vape and smoke. 2-3 times a week Sexual activity: Yes Other Topics Concern Not on file Social History Narrative Engaged to Jeramie, has 2 dtrs and one son, SMOKER. Unemployed, of note does not have custody of her 2 oldest kids, did not divulge information. Presently her youngest daughter lives with her and her boyfriend. Social Determinants of Health Financial Resource Strain: Not on file Food Insecurity: Not on file Transportation Needs: No Transportation Needs (03/14/2023) PRAPARE - Transportation Lack of Transportation (Medical): No Lack of Transportation (Non-Medical): No Physical Activity: Not on file Stress: Not on file Social Connections: Not on file Intimate Partner Violence: Not At Risk (03/15/2023) Humiliation, Afraid, Rape, and Kick questionnaire Fear of Current or Ex-Partner: No Emotionally Abused: No Physically Abused: No Sexually Abused: No Housing Stability: High Risk (03/14/2023) Housing Stability Vital Sign Unable to Pay for Housing in the Last Year: Yes Number of Places Lived in the Last Year: 1 Unstable Housing in the Last Year: No Prior to Admission medications Medication Sig Start Date End Date Taking? Authorizing Provider acyclovir (Zovirax) 400 MG tablet Take 400 mg by mouth. 03/09/21 Yes Historical Provider, albuterol 108 (90 Base) MCG/ACT inhaler Inhale 2 puffs every 6 hours as needed. 03/22/21 Yes Historical Provider, benazepril (Lotensin) 10 MG tablet Take 1 tablet (10 mg) by mouth daily. 02/14/23 Yes Jonathan Martínez DO escitalopram (Lexapro) 20 MG tablet Take 1 tablet (20 mg) by mouth daily for 90 doses. 11/06/22 07/02/23 Yes Jonathan Cameron DO Mauricio MV-Min-Fe Fum-FA-DHA ( 1 PO) Take 200 mg by mouth in the morning. 05/14/17 Yes Historical Provider, oxybutynin XL (Ditropan XL) 10 MG 24 hr tablet Take 1 tablet (10 mg) by mouth daily. Do not crush, chew, or split. Patient not taking: Reported on 07/02/2023 03/18/23 Heri Brandt APRN - ANYA tamsulosin (Flomax) 0.4 MG 24 hr capsule Take 1 capsule (0.4 mg) by mouth daily. Patient not taking: Reported on 07/02/2023 03/29/23 06/27/23 Elise Valero MD Review of Systems Constitutional: Positive for appetite change and fatigue. Negative for activity change and chills. HENT: Negative. Respiratory: Negative. Genitourinary: Negative. Neurological: Negative. Psychiatric/Behavioral: Positive for decreased concentration, dysphoric mood and sleep disturbance (sleeping too much). Vitals: 07/02/23 1044 07/02/23 1134 BP: (!) 165/116 (!) 159/113 Pulse: 88 Resp: 16 Temp: 36.7 C (98 F) TempSrc: Infrared SpO2: 98% Weight: 200 lb 9.6 oz (91 kg) Physical Exam Constitutional: General: She is not in acute distress. Appearance: Normal appearance. She is not ill-appearing. HENT: Head: Normocephalic and atraumatic. Eyes: Conjunctiva/sclera: Conjunctivae normal. Cardiovascular: Rate and Rhythm: Normal rate and regular rhythm. Pulses: Normal pulses. Heart sounds: Normal heart sounds. Pulmonary: Effort: Pulmonary effort is normal. Breath sounds: Normal breath sounds. Neurological: Mental Status: She is alert and oriented to person, place, and time. Psychiatric: Mood and Affect: Mood normal. Behavior: Behavior normal. Thought Content: Thought content normal. Judgment: Judgment normal. An electronic signature was used to authenticate this note. BREA Bee CNP 07/02/2023 3:03 PM documented in this encounter [facility] 07-02-2023 Note Addended by: LETICIA WILSON on: 07/04/2023 05:38 PM Modules accepted: Level of Service [facility] 07-02-2023 Note Addended by: LETICIA WILSON on: 07/04/2023 05:38 PM Modules accepted: Level of Service [facility] 04-19-2023 History of Present illness Narrative Images from the original note were not included. Helder Ruiz MD 04/19/2023 at 8:59 AM Office follow up PATIENT NAME: Kenia Ortiz DATE OF : 1990 TODAY'S DATE: 04/19/2023 CHIEF COMPLAINT: Chief Complaint Patient presents with Procedure Cysto Subjective: Ms. Ortiz is a 33 y.o. 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 LEFT URETEROSCOPY HOLMIUM LASER LITHOTRIPSY, LEFT STENT CHANGE TUBAL LIGATION 2019 VENTRAL HERNIA REPAIR 2017 twice Allergies: Influenza vaccine surface adjuvant, inactivated; Influenza a (h5n1) tiss-cult adjuvanted [influenza a (h5n1) vaccine (tissue-cultured)]; and Raspberry Social History: Social History Socioeconomic History Marital status: Single Spouse name: Not on file Number of children: Not on file Years of education: Not on file Highest education level: Not on file Occupational History Not on file Tobacco Use Smoking status: Some Days Packs/day: 1.00 Types: Cigarettes Smokeless tobacco: Never Vaping Use Vaping Use: Never used Substance and Sexual Activity Alcohol use: Not Currently Drug use: Yes Types: Marijuana Sexual activity: Not on file Other Topics Concern Not on file Social History Narrative Engaged to Jeramie, has 2 dtrs and one son, SMOKER. Unemployed, of note does not have custody of her 2 oldest kids, did not divulge information. Presently her youngest daughter lives with her and her boyfriend. Social Determinants of Health Financial Resource Strain: Not on file Food Insecurity: Not on file Transportation Needs: No Transportation Needs (03/14/2023) PRAPARE - Transportation Lack of Transportation (Medical): No Lack of Transportation (Non-Medical): No Physical Activity: Not on file Stress: Not on file Social Connections: Not on file Intimate Partner Violence: Not At Risk (03/15/2023) Humiliation, Afraid, Rape, and Kick questionnaire Fear of Current or Ex-Partner: No Emotionally Abused: No Physically Abused: No Sexually Abused: No Housing Stability: High Risk (03/14/2023) Housing Stability Vital Sign Unable to Pay for Housing in the Last Year: Yes Number of Places Lived in the Last Year: 1 Unstable Housing in the Last Year: No Family History: Family History Problem Relation Name Age of Onset No Known Problems Sister No Known Problems Brother No Known Problems Brother No Known Problems Mother Cancer Father unsure of type No Known Problems Brother No Known Problems Sister Medications Prior to Admission medications Medication Sig Start Date End Date Taking? Authorizing Provider acyclovir (Zovirax) 400 MG tablet Take 400 mg by mouth. 03/09/21 Yes Historical Provider, albuterol 108 (90 Base) MCG/ACT inhaler Inhale 2 puffs every 6 hours as needed. 03/22/21 Yes Historical Provider, benazepril (Lotensin) 10 MG tablet Take 1 tablet (10 mg) by mouth daily. 02/14/23 Yes Jonathan Martínez, cefpodoxime (Vantin) 200 MG tablet Take 1 tablet (200 mg) by mouth 2 times daily for 10 days. 04/18/23 04/28/23 Yes Eloisa Squires MD oxybutynin XL (Ditropan XL) 10 MG 24 hr tablet Take 1 tablet (10 mg) by mouth daily. Do not crush, chew, or split. 03/18/23 Yes Heri Brandt, DEVELOPMENT ADVISOR - ASSIGNMENT CLERK MV-Min-Fe Fum-FA-DHA ( 1 PO) Take 200 mg by mouth in the morning. 05/14/17 Yes Historical Provider, tamsulosin (Flomax) 0.4 MG 24 hr capsule Take 1 capsule (0.4 mg) by mouth daily. 03/29/23 06/27/23 Yes Elise Valero MD escitalopram (Lexapro) 20 MG tablet Take 1 tablet (20 mg) by mouth daily for 90 doses. 11/06/22 03/29/23 Jonathan Martínez DO Vitals: BP (!) 141/99 Pulse 88 Ht 5' 5 (1.651 m) Wt 208 lb (94.3 kg) BMI 34.61 kg/m Physical Exam General: No distress Abdomen: Back: : Labs: WBC Lab Results Component Value Date WBC 13.8 (H) 04/18/2023 BMP Lab Results Component Value Date NA 138 04/18/2023 K 3.8 04/18/2023 CL 107 04/18/2023 CO2 21 (L) 04/18/2023 BUN 9 04/18/2023 CREATININE 0.85 04/18/2023 CREATININE 0.73 07/09/2022 CREATININE 0.73 07/09/2022 GLUCOSE 97 04/18/2023 CALCIUM 9.4 04/18/2023 PSA No results found for: PSA UA Lab Results Component Value Date APPEARANCE Turbid (A) 06/12/2022 COLORU Yellow 04/18/2023 LABSPEC 1.024 06/12/2022 LABPH 5.5 06/12/2022 GLUCOSEU Normal 04/18/2023 UROBILINOGEN Normal 04/18/2023 BILIRUBINUR Negative 06/12/2022 OCBU 0.03 (A) 06/12/2022 03/29/23 Laser litho, left stent exchange, [place]. 03/13/23 CT 1. Obstructing 1.1 cm proximal ureteral calculus in similar position to prior imaging on 12/26/2022 causing moderate left renal hydronephrosis with persistent distention of the left ureter along its course distal to the obstruction. The left kidney is edematous with perinephric stranding and edema likely reflecting a superimposed infectious/inflammatory process. 2. 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 Review: Impression/Plan There are no diagnoses linked to this encounter. No follow-ups on file. Left stent removed today Reviewed CT with patient and Mother Has left Lower pole calc. Which is residual stone ( was previously in UPJ regions, had laser litho by Dr Cristobal) Plan KUB prior to follow up in 8-10 weeks Will need left ESWL in the Future Helder Ruiz MD 04/19/23 8:59 AM Cystoscopy Procedure Note Pre-operative Diagnosis: left ureteral stent Post-operative Diagnosis: Same Procedure Details The risks, benefits, complications, treatment options, and expected outcomes were discussed with the patient. The patient concurred with the proposed plan, giving informed consent. Cystoscopy was performed without incident. The patient was placed in the lithotomy position, prepped with Betadine, and draped in the usual sterile fashion. Lidocaine jelly was instilled into the urethra to effect local anesthesia. The sheathed digital flexible cystoscope was passed into the bladder without incident Findings: Urethra: normal without stenosis or evidence for urethral diverticulum Bladder: Left ureteral stent removed without difficulty. Specimens: None Complications: None. Patient tolerated the procedure well Plan: See E&M Helder Ruiz M.D. documented in this encounter [facility] 04-19-2023 Note Cystoscopy Procedure Note Pre-operative Diagnosis: left ureteral stent Post-operative Diagnosis: Same Procedure Details The risks, benefits, complications, treatment options, and expected outcomes were discussed with the patient. The patient concurred with the proposed plan, giving informed consent. Cystoscopy was performed without incident. The patient was placed in the lithotomy position, prepped with Betadine, and draped in the usual sterile fashion. Lidocaine jelly was instilled into the urethra to effect local anesthesia. The sheathed digital flexible cystoscope was passed into the bladder without incident Findings: Urethra: normal without stenosis or evidence for urethral diverticulum Bladder: Left ureteral stent removed without difficulty. Specimens: None Complications: None. Patient tolerated the procedure well Plan: See E&M Helder Ruiz M.D. [facility] 04-18-2023 Emergency department Note Pt states pain medication wore off. Pain 06/25 Kathleen Gonzalez RN 04/18/232109 [facility] 04-18-2023 Emergency department Note Pt states pain medication wore off. Pain 06/25 Kathleen Gonzalez RN 04/18/232109 EMERGENCY DEPARTMENT ENCOUNTER Pt Name: Kenia Ortiz Birthdate 1990 Date of evaluation: 04/18/2023 ED Provider: Eloisa Squires MD CHIEF COMPLAINT No chief complaint on file. HISTORY OF PRESENT ILLNESS (Location/Symptom, Timing/Onset, Context/Setting, Quality, Duration, Modifying Factors, Severity) Note limiting factors. I wore appropriate PPE for the entirety of this encounter. HPI Kenia Ortiz is a 33 y.o. who presents to the emergency department chief complaint of left flank pain that began about a couple hours prior to presentation. Patient had a 1.1 cm proximal ureteral calculi that reportedly is obstructing causing moderate left renal hydronephrosis. Patient less than 3 weeks ago had a ureteral stent placed with lithotripsy by Dr. Hutchins. Patient is scheduled for cystoscopy and stent removal tomorrow morning at 8:20 AM at [facility] with Dr. Ruiz. Patient states that she took ketorolac orally couple hours prior to presentation. Nursing Notes were reviewed. REVIEW OF SYSTEMS Review of Systems Constitutional: Negative for fever. HENT: Negative for sore throat. Respiratory: Negative for shortness of breath. Cardiovascular: Negative for chest pain. Gastrointestinal: Positive for nausea. Negative for abdominal pain. Genitourinary: Positive for dysuria, flank pain and hematuria. Skin: Negative for rash. Allergic/Immunologic: Negative for immunocompromised state. Hematological: Does not bruise/bleed easily. 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 LEFT URETEROSCOPY HOLMIUM LASER LITHOTRIPSY, LEFT STENT CHANGE TUBAL LIGATION 2019 VENTRAL HERNIA REPAIR 2017 twice CURRENT MEDICATIONS Previous Medications ACYCLOVIR (ZOVIRAX) 400 MG TABLET Take 400 mg by mouth. ALBUTEROL 108 (90 BASE) MCG/ACT INHALER Inhale 2 puffs every 6 hours as needed. BENAZEPRIL (LOTENSIN) 10 MG TABLET Take 1 tablet (10 mg) by mouth daily. ESCITALOPRAM (LEXAPRO) 20 MG TABLET Take 1 tablet (20 mg) by mouth daily for 90 doses. OXYBUTYNIN XL (DITROPAN XL) 10 MG 24 HR TABLET Take 1 tablet (10 mg) by mouth daily. Do not crush, chew, or split. MV-MIN-FE FUM-FA-DHA ( 1 PO) Take 200 mg by mouth in the morning. TAMSULOSIN (FLOMAX) 0.4 MG 24 HR CAPSULE Take 1 capsule (0.4 mg) by mouth daily. ALLERGIES Influenza vaccine surface adjuvant, inactivated; Influenza a (h5n1) tiss-cult adjuvanted [influenza a (h5n1) vaccine (tissue-cultured)]; and Raspberry FAMILY HISTORY Family History Problem Relation Name Age of Onset No Known Problems Sister No Known Problems Brother No Known Problems Brother No Known Problems Mother Cancer Father unsure of type No Known Problems Brother No Known Problems Sister SOCIAL HISTORY Social History Socioeconomic History Marital status: Single Tobacco Use Smoking status: Some Days Packs/day: 1.00 Types: Cigarettes Smokeless tobacco: Never Vaping Use Vaping Use: Never used Substance and Sexual Activity Alcohol use: Not Currently Drug use: No Types: Marijuana Social History Narrative Engaged to Jeramie, has 2 dtrs and one son, SMOKER. Unemployed, of note does not have custody of her 2 oldest kids, did not divulge information. Presently her youngest daughter lives with her and her boyfriend. Social Determinants of Health Transportation Needs: No Transportation Needs (03/14/2023) PRAPARE - Transportation Lack of Transportation (Medical): No Lack of Transportation (Non-Medical): No Intimate Partner Violence: Not At Risk (03/15/2023) Humiliation, Afraid, Rape, and Kick questionnaire Fear of Current or Ex-Partner: No Emotionally Abused: No Physically Abused: No Sexually Abused: No Housing Stability: High Risk (03/14/2023) Housing Stability Vital Sign Unable to Pay for Housing in the Last Year: Yes Number of Places Lived in the Last Year: 1 Unstable Housing in the Last Year: No SCREENINGS PHYSICAL EXAM ED Triage Vitals Temp Pulse Resp BP -- -- -- -- SpO2 Temp src Heart Rate Source Patient Position -- -- -- -- BP Location FiO2 (%) -- -- Physical Exam Vitals and nursing note reviewed. Constitutional: General: She is not in acute distress. Comments: 33-year-old female HENT: Head: Normocephalic and atraumatic. Mouth/Throat: Mouth: Mucous membranes are moist. Eyes: Extraocular Movements: Extraocular movements intact. Pupils: Pupils are equal, round, and reactive to light. Cardiovascular: Rate and Rhythm: Normal rate and regular rhythm. Pulmonary: Effort: Pulmonary effort is normal. Breath sounds: Normal breath sounds. Abdominal: Palpations: Abdomen is soft. Tenderness: There is no abdominal tenderness. There is left CVA tenderness. There is no guarding or rebound. Musculoskeletal: Cervical back: Normal range of motion. No rigidity. Skin: General: Skin is warm and dry. Findings: No rash. Neurological: Mental Status: She is alert. DIAGNOSTIC RESULTS RADIOLOGY (Per Emergency Physician): Interpretation per the Radiologist below, if available at the time of this note: No orders to display LABS: Labs Reviewed - No data to display All other labs were within normal range or not returned as of this dictation. EMERGENCY DEPARTMENT COURSE and DIFFERENTIAL DIAGNOSIS/MDM: Vitals: There were no vitals filed for this visit. Medications - No data to display Patient evaluated for left flank pain with known indwelling ureteral stent. Patient has stable leukocytosis. She denies fever. Patient is in no acute distress and overall well-appearing treated with intravenous Dilaudid and fluids initially as patient had taken NSAIDs prior to arrival. Patient later dosed with intravenous Toradol. was negative. Urinalysis contaminated but felt to be concerning for possible infection. CT abdomen demonstrates indwelling ureteral stent. Patient discussed with Dr. Reynolds from urology. Patient is scheduled for ureteral stent removal in the morning. Admission at this time is not felt to be beneficial or change timely intervention. Treated with intravenous ceftriaxone. Urine sent for culture. Prescribed cefpodoxime. Patient provided return precautions. ED Course as of 04/18/232299 Leida Apr 18, 20232043 HCG,URINE QUAL: Negative [SP] 2045 Auto WBC(!): 13.8 Stable to a month ago [SP] 2045 Bacteria, Urine(!): Few [SP] 2045 Squamous Epithelial, Urine(!): 6-10 [SP] 2045 WBC, Urine(!): 11-25 [SP] 2045 RBC, Urine(!): 26-50 [SP] 2045 LEUKOCYTE ESTERASE(!): 500 [SP] 2148 CT abdomen pelvis wo IV contrast 1. Inflamed appearing bladder, correlate for possible cystitis. Pyelitis/pyelonephritis not excluded given stranding along the course of the left ureter and perinephric stranding though these were present previously. Previously seen left UPJ calculus no longer visualized. 2. 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 3. Fat-containing abdominal wall hernia unchanged. [SP] ED Course User Index [SP] Eloisa Squires MD Diagnoses as of 04/18/23 230 Left flank pain Ureteral stent present Urinary tract infection with hematuria, site unspecified MDM elements: The patient presented with chief complaint of flank pain. The differential diagnosis associated with this patient's presentation includes ureteral stent plain, kidney stone, kidney infection, musculoskeletal. Our workup consisted of ordering/reviewing: Urinalysis, blood work, CT abdomen. I discussed their care with [facility] [employer] urology, Dr. Reynolds. Consideration for escalation of care with: Admission/observation . The patient will be Discharged. Patient is in agreement with this plan. PROCEDURES: Unless otherwise noted below, none Procedures FINAL IMPRESSION 1. Left flank pain 2. Ureteral stent present 3. Urinary tract infection with hematuria, site unspecified DISPOSITION PATIENT REFERRED TO: No follow-up provider specified. DISCHARGE MEDICATIONS: New Prescriptions No medications on file (Comment: Please note this report has been produced using speech recognition software and may contain errors related to that system including errors in grammar, punctuation, and spelling, as well as words and phrases that may be inappropriate. If there are any questions or concerns please feel free to contact the dictating provider for clarification.) Eolisa Squires MD (electronically signed) Emergency Medicine Provider Eloisa Squires MD 04/18/23 5591 Pt presents to the ED with acute left flank pain. Pt states she had a stent placed 2-3 weeks ago and was to have it removed yesterday but states she could not locate the place she needed to go and go frustrated and rescheduled her apt for tomorrow. Pt states she started having pain this evening. Pt states it feels like she has a boulder on her back. Pt states she has been having burning. Pt was wheeled back to the unit. Pt mom is at bedside and call light is within reach. documented in this encounter [facility] 04-18-2023 Emergency department Triage note Pt presents to the ED with acute left flank pain. Pt states she had a stent placed 2-3 weeks ago and was to have it removed yesterday but states she could not locate the place she needed to go and go frustrated and rescheduled her apt for tomorrow. Pt states she started having pain this evening. Pt states it feels like she has a boulder on her back. Pt states she has been having burning. Pt was wheeled back to the unit. Pt mom is at bedside and call light is within reach. [facility] 04-18-2023 Physician Emergency department Note EMERGENCY DEPARTMENT ENCOUNTER Pt Name: Kenia Ortiz Birthdate 1990 Date of evaluation: 04/18/2023 ED Provider: Eloisa Squires MD CHIEF COMPLAINT No chief complaint on file. HISTORY OF PRESENT ILLNESS (Location/Symptom, Timing/Onset, Context/Setting, Quality, Duration, Modifying Factors, Severity) Note limiting factors. I wore appropriate PPE for the entirety of this encounter. HPI Kenia Ortiz is a 33 y.o. who presents to the emergency department chief complaint of left flank pain that began about a couple hours prior to presentation. Patient had a 1.1 cm proximal ureteral calculi that reportedly is obstructing causing moderate left renal hydronephrosis. Patient less than 3 weeks ago had a ureteral stent placed with lithotripsy by Dr. Hutchins. Patient is scheduled for cystoscopy and stent removal tomorrow morning at 8:20 AM at [facility] with Dr. Ruiz. Patient states that she took ketorolac orally couple hours prior to presentation. Nursing Notes were reviewed. REVIEW OF SYSTEMS Review of Systems Constitutional: Negative for fever. HENT: Negative for sore throat. Respiratory: Negative for shortness of breath. Cardiovascular: Negative for chest pain. Gastrointestinal: Positive for nausea. Negative for abdominal pain. Genitourinary: Positive for dysuria, flank pain and hematuria. Skin: Negative for rash. Allergic/Immunologic: Negative for immunocompromised state. Hematological: Does not bruise/bleed easily. 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 LEFT URETEROSCOPY HOLMIUM LASER LITHOTRIPSY, LEFT STENT CHANGE TUBAL LIGATION 2019 VENTRAL HERNIA REPAIR 2017 twice CURRENT MEDICATIONS Previous Medications ACYCLOVIR (ZOVIRAX) 400 MG TABLET Take 400 mg by mouth. ALBUTEROL 108 (90 BASE) MCG/ACT INHALER Inhale 2 puffs every 6 hours as needed. BENAZEPRIL (LOTENSIN) 10 MG TABLET Take 1 tablet (10 mg) by mouth daily. ESCITALOPRAM (LEXAPRO) 20 MG TABLET Take 1 tablet (20 mg) by mouth daily for 90 doses. OXYBUTYNIN XL (DITROPAN XL) 10 MG 24 HR TABLET Take 1 tablet (10 mg) by mouth daily. Do not crush, chew, or split. MV-MIN-FE FUM-FA-DHA ( 1 PO) Take 200 mg by mouth in the morning. TAMSULOSIN (FLOMAX) 0.4 MG 24 HR CAPSULE Take 1 capsule (0.4 mg) by mouth daily. ALLERGIES Influenza vaccine surface adjuvant, inactivated; Influenza a (h5n1) tiss-cult adjuvanted [influenza a (h5n1) vaccine (tissue-cultured)]; and Raspberry FAMILY HISTORY Family History Problem Relation Name Age of Onset No Known Problems Sister No Known Problems Brother No Known Problems Brother No Known Problems Mother Cancer Father unsure of type No Known Problems Brother No Known Problems Sister SOCIAL HISTORY Social History Socioeconomic History Marital status: Single Tobacco Use Smoking status: Some Days Packs/day: 1.00 Types: Cigarettes Smokeless tobacco: Never Vaping Use Vaping Use: Never used Substance and Sexual Activity Alcohol use: Not Currently Drug use: No Types: Marijuana Social History Narrative Engaged to Jeramie, has 2 dtrs and one son, SMOKER. Unemployed, of note does not have custody of her 2 oldest kids, did not divulge information. Presently her youngest daughter lives with her and her boyfriend. Social Determinants of Health Transportation Needs: No Transportation Needs (03/14/2023) PRAPARE - Transportation Lack of Transportation (Medical): No Lack of Transportation (Non-Medical): No Intimate Partner Violence: Not At Risk (03/15/2023) Humiliation, Afraid, Rape, and Kick questionnaire Fear of Current or Ex-Partner: No Emotionally Abused: No Physically Abused: No Sexually Abused: No Housing Stability: High Risk (03/14/2023) Housing Stability Vital Sign Unable to Pay for Housing in the Last Year: Yes Number of Places Lived in the Last Year: 1 Unstable Housing in the Last Year: No SCREENINGS PHYSICAL EXAM ED Triage Vitals Temp Pulse Resp BP -- -- -- -- SpO2 Temp src Heart Rate Source Patient Position -- -- -- -- BP Location FiO2 (%) -- -- Physical Exam Vitals and nursing note reviewed. Constitutional: General: She is not in acute distress. Comments: 33-year-old female HENT: Head: Normocephalic and atraumatic. Mouth/Throat: Mouth: Mucous membranes are moist. Eyes: Extraocular Movements: Extraocular movements intact. Pupils: Pupils are equal, round, and reactive to light. Cardiovascular: Rate and Rhythm: Normal rate and regular rhythm. Pulmonary: Effort: Pulmonary effort is normal. Breath sounds: Normal breath sounds. Abdominal: Palpations: Abdomen is soft. Tenderness: There is no abdominal tenderness. There is left CVA tenderness. There is no guarding or rebound. Musculoskeletal: Cervical back: Normal range of motion. No rigidity. Skin: General: Skin is warm and dry. Findings: No rash. Neurological: Mental Status: She is alert. DIAGNOSTIC RESULTS RADIOLOGY (Per Emergency Physician): Interpretation per the Radiologist below, if available at the time of this note: No orders to display LABS: Labs Reviewed - No data to display All other labs were within normal range or not returned as of this dictation. EMERGENCY DEPARTMENT COURSE and DIFFERENTIAL DIAGNOSIS/MDM: Vitals: There were no vitals filed for this visit. Medications - No data to display Patient evaluated for left flank pain with known indwelling ureteral stent. Patient has stable leukocytosis. She denies fever. Patient is in no acute distress and overall well-appearing treated with intravenous Dilaudid and fluids initially as patient had taken NSAIDs prior to arrival. Patient later dosed with intravenous Toradol. was negative. Urinalysis contaminated but felt to be concerning for possible infection. CT abdomen demonstrates indwelling ureteral stent. Patient discussed with Dr. Reynolds from urology. Patient is scheduled for ureteral stent removal in the morning. Admission at this time is not felt to be beneficial or change timely intervention. Treated with intravenous ceftriaxone. Urine sent for culture. Prescribed cefpodoxime. Patient provided return precautions. ED Course as of 04/18/232299 Leida Apr 18, 20232043 HCG,URINE QUAL: Negative [SP] 2044 Auto WBC(!): 13.8 Stable to a month ago [SP] 2044 Bacteria, Urine(!): Few [SP] 2044 Squamous Epithelial, Urine(!): 6-10 [SP] 2044 WBC, Urine(!): 11-25 [SP] 2044 RBC, Urine(!): 26-50 [SP] 2044 LEUKOCYTE ESTERASE(!): 500 [SP] 2147 CT abdomen pelvis wo IV contrast 1. Inflamed appearing bladder, correlate for possible cystitis. Pyelitis/pyelonephritis not excluded given stranding along the course of the left ureter and perinephric stranding though these were present previously. Previously seen left UPJ calculus no longer visualized. 2. 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 3. Fat-containing abdominal wall hernia unchanged. [SP] ED Course User Index [SP] Eloisa Squires MD Diagnoses as of 04/18/232299 Left flank pain Ureteral stent present Urinary tract infection with hematuria, site unspecified MDM elements: The patient presented with chief complaint of flank pain. The differential diagnosis associated with this patient's presentation includes ureteral stent plain, kidney stone, kidney infection, musculoskeletal. Our workup consisted of ordering/reviewing: Urinalysis, blood work, CT abdomen. I discussed their care with [facility] Scrub[employer] [facility] urology, Dr. Reynolds. Consideration for escalation of care with: Admission/observation . The patient will be Discharged. Patient is in agreement with this plan. PROCEDURES: Unless otherwise noted below, none Procedures FINAL IMPRESSION 1. Left flank pain 2. Ureteral stent present 3. Urinary tract infection with hematuria, site unspecified DISPOSITION PATIENT REFERRED TO: No follow-up provider specified. DISCHARGE MEDICATIONS: New Prescriptions No medications on file (Comment: Please note this report has been produced using speech recognition software and may contain errors related to that system including errors in grammar, punctuation, and spelling, as well as words and phrases that may be inappropriate. If there are any questions or concerns please feel free to contact the dictating provider for clarification.) Eloisa Squires MD (electronically signed) Emergency Medicine Provider Eloisa Squires MD 08/03/23 2301 [facility] 04-18-2023 Telephone encounter Note Called and spoke with patient. Was madyson to schedule patient for Cysto Stent removal for 04/19/23 at 8:20am in [place]. [facility] 04-18-2023 Miscellaneous Notes Called and spoke with patient. Was madyson to schedule patient for Cysto Stent removal for 04/19/23 at 8:20am in [place]. Cysto stent removal scheduled on 04/17/[address] Ruiz at [address] Office cysto and stent removal in 1-2 weeks Spoke with Surgery Scheduled - Pt states she understood all instructions D/T/L Needs scheduled for LULL and stent exchange in 1-2 weeks documented in this encounter [facility] 03-29-2023 Miscellaneous Notes Family at bedside, patient up to void, walked with SBA. IV removed. Patient dressed and placed in wheelchair to car. PreOp Dx renal calculus PostOp Dx Same Operation Cystoscopy, retrograde pyelogram, flouroscopy, left ureteroscopy, laser lithotripsy, ureteral stent exchange Surgeon Wilmar Cristobal MD Assist Anjum SANZ EBL Minimal Drains 6fr X 24cmJJ Olivo none Specimen none Condition To PACU This is a 33 y.o. patient who presents with a renal calculus. After having a discussion on treatment options, risks and benefits, the patient wishes to proceed forward with surgical intervention Patient was brought to the operating room. A thorough time out was performed and everyone present was in agreement. Patient was placed on OR table. Anesthesia and lines were maintained by the anesthesia team. Patient was placed in the dorsal lithotomy position. Prepped and draped in usual fashion. Pressure points were padded. A cystourethroscope was inserted through the urethra and the bladder was inspected. Previous left ureteral stent was removed. Retrograde pyelograms were performed under fluoroscopic visualization on the left side, it showed mild hydro. A sensor wire was advanced to the level of the kidney. A flexible ureteroscope was passed over the wire. The stone was visualized and laser lithotripsied using the holmium laser. It was completely dusted. A 6fr X 24cmJJ was advanced over the wire through the cystoscope under fluoroscopic visualization. Once in position the wire was removed. A good curl was noted in the kidney and the bladder. The bladder was emptied and patient awoken from anesthesia. Office cysto and stent removal in 1 week documented in this encounter [facility] 03-29-2023 Note Formatting of this n ote might be different from the original. Family at bedside, patient up to void, walked with SBA. IV removed. Patient dressed and placed in wheelchair to car. [facility] 03-29-2023 Note Formatting of this n ote might be different from the original. Family at bedside, patient up to void, walked with SBA. IV removed. Patient dressed and placed in wheelchair to car. [facility] 03-29-2023 Telephone encounter Note Cysto stent removal scheduled on 04/17/[address] Ruiz at [address] [facility] 03-29-2023 Telephone encounter Note Office cysto and stent removal in 1-2 weeks [employer] Phone: 03-29-2023 Note Formatting of this n ote might be different from the original. PreOp Dx renal calculus PostOp Dx Same Operation Cystoscopy, retrograde pyelogram, flouroscopy, left ureteroscopy, laser lithotripsy, ureteral stent exchange Surgeon Wilmar Cristobal MD Assist Anjum SANZ EBL Minimal Drains 6fr X 24cmJJ Olivo none Specimen none Condition To PACU This is a 33 y.o. patient who presents with a renal calculus. After having a discussion on treatment options, risks and benefits, the patient wishes to proceed forward with surgical intervention Patient was brought to the operating room. A thorough time out was performed and everyone present was in agreement. Patient was placed on OR table. Anesthesia and lines were maintained by the anesthesia team. Patient was placed in the dorsal lithotomy position. Prepped and draped in usual fashion. Pressure points were padded. A cystourethroscope was inserted through the urethra and the bladder was inspected. Previous left ureteral stent was removed. Retrograde pyelograms were performed under fluoroscopic visualization on the left side, it showed mild hydro. A sensor wire was advanced to the level of the kidney. A flexible ureteroscope was passed over the wire. The stone was visualized and laser lithotripsied using the holmium laser. It was completely dusted. A 6fr X 24cmJJ was advanced over the wire through the cystoscope under fluoroscopic visualization. Once in position the wire was removed. A good curl was noted in the kidney and the bladder. The bladder was emptied and patient awoken from anesthesia. Office cysto and stent removal in 1 week [employer] Phone: 03-29-2023 Note Formatting of this n ote might be different from the original. PreOp Dx renal calculus PostOp Dx Same Operation Cystoscopy, retrograde pyelogram, flouroscopy, left ureteroscopy, laser lithotripsy, ureteral stent exchange Surgeon Wilmar Cristobal MD Assist Anjum SANZ EBL Minimal Drains 6fr X 24cmJJ Olivo none Specimen none Condition To PACU This is a 33 y.o. patient who presents with a renal calculus. After having a discussion on treatment options, risks and benefits, the patient wishes to proceed forward with surgical intervention Patient was brought to the operating room. A thorough time out was performed and everyone present was in agreement. Patient was placed on OR table. Anesthesia and lines were maintained by the anesthesia team. Patient was placed in the dorsal lithotomy position. Prepped and draped in usual fashion. Pressure points were padded. A cystourethroscope was inserted through the urethra and the bladder was inspected. Previous left ureteral stent was removed. Retrograde pyelograms were performed under fluoroscopic visualization on the left side, it showed mild hydro. A sensor wire was advanced to the level of the kidney. A flexible ureteroscope was passed over the wire. The stone was visualized and laser lithotripsied using the holmium laser. It was completely dusted. A 6fr X 24cmJJ was advanced over the wire through the cystoscope under fluoroscopic visualization. Once in position the wire was removed. A good curl was noted in the kidney and the bladder. The bladder was emptied and patient awoken from anesthesia. Office cysto and stent removal in 1 week [employer] Phone: 03-22-2023 Telephone encounter Note S: Patient spoke with [facility] nurse regarding urinary tract symptoms. B: Onset of symptoms started several days ago. A: Patient is experiencing burning and pain with urination, increased frequency and urgency, incontinence. She continues to have left flank pain that is constant and moderate along with blood in the urine. Denies fever. Currently taking Ditropan XL and pyridium. She states she has not had a bowel movement since March 19. R: Second level triage, via Secure Chat, with Dr. Reynolds and her recommendations were as follows: symptoms are common with her recent stent placement. most likely due to irritation from stent. continue ditropan and pyridium. encourage oral hydration. this will not affect her ability to have follow up procedure performed. Recommendations were given to patient and she verbalized understanding. Discussed increasing oral hydration as well as stool softener and prunes or prune juice to help with the bowels. Discussed to also increase fiber intake. Patient verbalized understanding to care advice. No further needs at this time. Patient instructed to call back with new or worsening symptoms. Reason for Disposition Side (flank) or lower back pain present Protocols used: Urinary [id number] [facility] 03-22-2023 Miscellaneous Notes S: Patient spoke with [facility] nurse regarding urinary tract symptoms. B: Onset of symptoms started several days ago. A: Patient is experiencing burning and pain with urination, increased frequency and urgency, incontinence. She continues to have left flank pain that is constant and moderate along with blood in the urine. Denies fever. Currently taking Ditropan XL and pyridium. She states she has not had a bowel movement since March 19. R: Second level triage, via Secure Chat, with Dr. Reynolds and her recommendations were as follows: symptoms are common with her recent stent placement. most likely due to irritation from stent. continue ditropan and pyridium. encourage oral hydration. this will not affect her ability to have follow up procedure performed. Recommendations were given to patient and she verbalized understanding. Discussed increasing oral hydration as well as stool softener and prunes or prune juice to help with the bowels. Discussed to also increase fiber intake. Patient verbalized understanding to care advice. No further needs at this time. Patient instructed to call back with new or worsening symptoms. Reason for Disposition Side (flank) or lower back pain present Protocols used: Urinary [id number] documented in this encounter [facility] 03-20-2023 Telephone encounter Note Spoke with Surgery Scheduled - Pt states she understood all instructions D/T/L [employer] [facility] 03-15-2023 Telephone encounter Note Needs scheduled for LULL and stent exchange in 1-2 weeks [employer] [facility] 03-15-2023 Note Formatting of this n ote might be different from the original. PreOp Dx ureteral calculus PostOp Dx Same Operation Cystoscopy, retrograde pyelogram, flouroscopy, left ureteral stent placement Surgeon Wilmar Cristobal MD Assist Anitha SCHWARTZ Minimal Drains 6F multilength stent Olivo none Specimen none Condition To PACU This is a 32 y.o. patient who presents with a ureteral calculus. After having a discussion on treatment options, risks and benefits, the patient wishes to proceed forward with surgical intervention Patient was brought to the operating room. A thorough time out was performed and everyone present was in agreement. Patient was placed on OR table. Anesthesia and lines were maintained by the anesthesia team. Patient was placed in the dorsal lithotomy position. Prepped and draped in usual fashion. Pressure points were padded. A cystourethroscope was inserted through the urethra and the bladder was inspected. Retrograde pyelograms were performed under fluoroscopic visualization on the left side, it showed proximal ureteral calculus. A sensor wire was advanced to the level of the kidney. The ureter was measured. A 6F multilength stent was advanced over the wire through the cystoscope under fluoroscopic visualization. Once in position the wire was removed. A good curl was noted in the kidney and the bladder. The bladder was emptied and patient awoken from anesthesia. Will be scheduled for LULL and stent exchange [facility] [employer] Phone: 03-15-2023 Note Formatting of this n ote might be different from the original. PreOp Dx ureteral calculus PostOp Dx Same Operation Cystoscopy, retrograde pyelogram, flouroscopy, left ureteral stent placement Surgeon Wilmar Cristobal MD Assist Anitha SCHWARTZ Minimal Drains 6F multilength stent Olivo none Specimen none Condition To PACU This is a 32 y.o. patient who presents with a ureteral calculus. After having a discussion on treatment options, risks and benefits, the patient wishes to proceed forward with surgical intervention Patient was brought to the operating room. A thorough time out was performed and everyone present was in agreement. Patient was placed on OR table. Anesthesia and lines were maintained by the anesthesia team. Patient was placed in the dorsal lithotomy position. Prepped and draped in usual fashion. Pressure points were padded. A cystourethroscope was inserted through the urethra and the bladder was inspected. Retrograde pyelograms were performed under fluoroscopic visualization on the left side, it showed proximal ureteral calculus. A sensor wire was advanced to the level of the kidney. The ureter was measured. A 6F multilength stent was advanced over the wire through the cystoscope under fluoroscopic visualization. Once in position the wire was removed. A good curl was noted in the kidney and the bladder. The bladder was emptied and patient awoken from anesthesia. Will be scheduled for LULL and stent exchange [employer] Phone: 03-15-2023 Miscellaneous Notes PreOp Dx ureteral calculus PostOp Dx Same Operation Cystoscopy, retrograde pyelogram, flouroscopy, left ureteral stent placement Surgeon Wilmar Cristobal MD Assist Anitha SANZ EBL Minimal Drains 6F multilength stent Olivo none Specimen none Condition To PACU This is a 32 y.o. patient who presents with a ureteral calculus. After having a discussion on treatment options, risks and benefits, the patient wishes to proceed forward with surgical intervention Patient was brought to the operating room. A thorough time out was performed and everyone present was in agreement. Patient was placed on OR table. Anesthesia and lines were maintained by the anesthesia team. Patient was placed in the dorsal lithotomy position. Prepped and draped in usual fashion. Pressure points were padded. A cystourethroscope was inserted through the urethra and the bladder was inspected. Retrograde pyelograms were performed under fluoroscopic visualization on the left side, it showed proximal ureteral calculus. A sensor wire was advanced to the level of the kidney. The ureter was measured. A 6F multilength stent was advanced over the wire through the cystoscope under fluoroscopic visualization. Once in position the wire was removed. A good curl was noted in the kidney and the bladder. The bladder was emptied and patient awoken from anesthesia. Will be scheduled for LULL and stent exchange documented in this encounter [facility] 03-15-2023 Hospital Discharge instructions Aure Pineda RN - 03/15/2023 8:47 AM EDT Continuity of Care Form Patient Name: Kenia Ortiz : 1990 Admit date: 03/13/2023 Discharge date: Code Status Order: Full Code Advance Directives: N Admitting Physician: Michael Hess MD PCP: Jonathan Martínez DO Discharging Nurse: Discharging Hospital Unit/Room#: B1-145/B1-145 A Discharging Unit Phone Number: Emergency Contact: Extended Emergency Contact Information Primary Emergency Contact: Maxine Fermin Mobile Relation: Other Secondary Emergency Contact: Jeramie Solis Mobile Relation: Spouse Past Surgical History: Past Surgical History: Procedure Laterality Date CHOLECYSTECTOMY 2008 TUBAL LIGATION 2019 VENTRAL HERNIA REPAIR 2017 twice Immunization History: Immunization History Administered Date(s) Administered Influenza, injectable, MDCK, preservative free, quadrivalent 07/04/2022 Influenza, injectable, quadrivalent 11/06/2016, 07/16/2017, 08/11/2019 Influenza, seasonal, injectable 07/09/2014 MMR 02/12/2015, 12/02/2017 Moderna SARS-CoV-2 Vaccination 03/21/2021, 04/21/2021 Tdap 12/09/2014 Active Problems: Medical Problems Problem List * (Principal) Obstruction of left ureteropelvic junction (UPJ) due to stone Severe malnutrition (CMS/HCC) (HCC) (Chronic) Ureteral calculus, left Renal calculus, bilateral Isolation/Infection: No active isolations No active infections Nurse Assessment: Last Vital Signs: BP (!) 143/97 (BP Location: Left arm, Patient Position: Lying) Pulse 57 Temp 36.6 C (97.9 F) (Temporal) Resp 15 Ht 1.67 m (5' 5.75) Wt 94.3 kg (208 lb) SpO2 96% BMI 33.83 kg/m Last documented pain score (0-10 scale): Last Weight: Wt Readings from Last 1 Encounters: 03/14/23 94.3 kg (208 lb) Mental Status: {XUAN Patient Mental Status:55428} IV Access: {XUAN IV Access:10610} Nursing Mobility/ADLs: Walking {ANA ADL:::Independent} Transfer {ANA ADL:::Independent} Bathing {NAA ADL:::Independent} Dressing {ANA ADL:::Independent} Toileting {ANA ADL:::Independent} Feeding {ANA ADL:::Independent} Manufacturing Storeperson {ANA ADL:::Independent} Med Delivery {yes/no:25585} Wound Care Documentation and Therapy: Elimination: Continence: Bowel: {yes/no:74184} Bladder: {yes/no:76940} Urinary Catheter: {XUAN Urinary Catheter:87941} Colostomy/Ileostomy/Ileal Conduit: {YES / NO:} Date of Last BM: Intake/Output Summary (Last 24 hours) at 03/15/2023 0847 Last data filed at 03/14/2023 1700 Gross per 24 hour Intake 300 ml Output -- Net 300 ml I/O last 3 completed shifts: In: 350 (3.7 mL/kg) [P.O.:300; IV Piggyback:50] Out: 1 (0 mL/kg) [Urine:1 (0 mL/kg/hr)] Weight: 94.3 kg Safety Concerns: {XUAN Safety Concerns:73356} Impairments/Disabilities: {XUAN Impairments/Disabilities:84645} Nutrition Therapy: Current Nutrition Therapy: {XUAN Diet List:07338} Routes of Feeding: {routes of feedin} Liquids: {liquid consistency:45389} Daily Fluid Restriction: {daily fluid restriction:51441} Last Modified Barium Swallow with Video (Video Swallowing Test): {done not done:82446} Treatments at the Time of Hospital Discharge: Respiratory Treatments: Oxygen Therapy: {Therapy; copd oxygen:62598} Ventilator: {XUAN Ventilator:98565} Rehab Therapies: {GEN THERAPY DISCIPLINE SCAL:0419654} Weight Bearing Status/Restrictions: {POD WEIGHT BEARIN} Other Medical Equipment (for information only, NOT a DME order): {Assistive Devices DME:64447} Other Treatments: Patient's personal belongings (please select all that are sent with patient): {XUAN Patient Belongings:91403} RN SIGNATURE: {E-signature:57914} CASE MANAGEMENT/SOCIAL WORK SECTION Inpatient Status Date: Readmission Risk Assessment Score: @READMISSIONRISKDETAILS@ Discharging to Facility/ Agency Name: Address: Phone: Fax: Dialysis Facility (if applicable) Name: Address: Dialysis Schedule: Phone: Fax: Assistant Program Director/Pinion Polisher signature: {E-signature:78404} PHYSICIAN SECTION Prognosis: {Rehab Prognosis:76434} Condition at Discharge: {Patient Condition:99244} Rehab Potential (if transferring to Rehab): {Rehab Prognosis:09634} Recommended Labs or Other Treatments After Discharge: Physician Certification: I certify the above information and transfer of Kenia Sandovaln is necessary for the continuing treatment of the diagnosis listed and that she requires {XUAN Level of Care:83320} for {greater less than:44611} 30 days. Update Admission H&P: {XUAN Changes in H&P:31506} PHYSICIAN SIGNATURE: {E-signature:25200} documented in this encounter [facility] 03-15-2023 Plan of care note Problem: Pain - Adult Goal: Verbalizes/displays adequate comfort level or baseline comfort level Outcome: Completed Problem: Safety - Adult Goal: Free from fall injury Outcome: Completed Problem: Discharge Planning Goal: Discharge to home or other facility with appropriate resources Outcome: Completed Note: Patient driving self to [facility] for stent placement outpatient. Problem: Chronic Conditions and Co-morbidities Goal: Patient's chronic conditions and co-morbidity symptoms are monitored and maintained or improved Outcome: Completed [facility] 03-15-2023 Miscellaneous Notes Problem: Pain - Adult Goal: Verbalizes/displays adequate comfort level or baseline comfort level Outcome: Completed Problem: Safety - Adult Goal: Free from fall injury Outcome: Completed Problem: Discharge Planning Goal: Discharge to home or other facility with appropriate resources Outcome: Completed Note: Patient driving self to [facility] for stent placement outpatient. Problem: Chronic Conditions and Co-morbidities Goal: Patient's chronic conditions and co-morbidity symptoms are monitored and maintained or improved Outcome: Completed Spoke with pt at bedside, pt has private transportation that could transport her to [facility] as there is no transfer order in. Per bedside RN pt is on the OR schedule from 12-3 today. Discussed with nursing No urology at [place] today or tomorrow Patient is added on for ureteroscopy, laser lithotripsy and stent with Dr Cristobal tomorrow at [facility] Patient will need transfer to [facility] NPO after midnight Problem: Pain - Adult Goal: Verbalizes/displays adequate comfort level or baseline comfort level Outcome: Progressing Problem: Safety - Adult Goal: Free from fall injury Outcome: Progressing The patient is Moderately Stable - Low risk of patient condition declining or worsening The patient's goals for the shift include enough rest The clinical goals for the shift include patient to remain calm and pain free Over the shift, the patient did not make progress toward the following goals. Barriers to progression include none, goals met. Recommendations to address these barriers include none. Regulator Inspector following case for Discharge Needs. Care Managment Initial Assessment Date: 03/14/2023 Patient Name: Kenia Ortiz : 1990 Patient Information Source of Information: Patient Cognition/Language: WFL - Within Functional Limits Permission given to speak with patient member services representative/caregiver as indicated: Yes Confirmation of Payer with patient/family: Yes Payer Name: [employer] Pillager: No Confirmation of Primary Care Physician: Confirmed PCP Name: Mauricio Seen in last 2 years?: Yes Primary Caregiver: Self If assistance needed, confirmed caregiver ready, willing and able to care for patient at discharge: Yes Confirmed with: per pt, devorah can assist Living Arrangements Current Residence: Apartment Number of Floors 1 Number of Entry Steps: 5 or more Bed/Bath Levels: Facility: Facility Name: Plan to Return: Lives with: Spouse/significant other, Children Support Systems: Spouse/significant other, Children, Parent, Family members, Friends/neighbors Activities of Daily Living Ambulation: Independent Bathing/Dressing: Independent Elimination/Continence/Toileting: Independent Feeding: Independent Who Assists with Activities of Daily Living: Instrumental Activities of Daily Living Prescription Coverage: Yes Pharmacy Used: [facility] Medication Management: Independent Transportation/Shopping: Independent Transportation Mode: Car Needs Assistance with Transportation at Discharge: No (devorah) Meal Preparation: Independent Laundry/Cleaning: Independent Finances/Bill Paying: Independent Communication: Independent Types of Care Services/Equipment Utilized Care Services: Dialysis Type: NA Durable Medical Equipment: Patient's Goal/Discharge Plan Patient expects to be discharged to: Home Discharge Planning Actions: No needs identified, Continue to follow Patient's Choice Rights and [employer] and Collaborative Relationships Disclosed as Indicated for Post-Acute Care: NA Interdisciplinary Team Engagement: Social Work Referral for: Additional Information: 32 yo female admitted to for L renal stone, on IV rocephin, Ucx pending, NPO and urology consulted. Met with pt at bedside, introduced self and explained role of tcc. Pt has insurance with RX coverage, active with PCP. Pt lives at home with devorah and daughter, independent at baseline, drives and has transportation home. Anticipates no needs at discharge, TCC to assist and follow as needed. Aure Pineda RN documented in this encounter [facility] 03-15-2023 History of Present illness Narrative Nutrition Assessment Type and Reason for Visit: Initial, Positive Nutrition Screen Nutrition Recommendations/Plan: Noted raspberry allergy, no other food allergies or intolerances noted. Agreeable to Ensure plus high protein- [place] with breakfast daily on diet advance Continue NPO for anticipated OR with Urology today (03/15/27) Please record % meals and oral nutrition supplements consumed in flow-sheet for most accurate nutrient intake assessment. Obtain actual standing scale weight for most accurate anthropometric data RDN to continue to monitor weekly: fluid accumulation, weight, skin integrity, trends in lab values, ability to tolerate PO diet. Changes in clinical status and discharge planning. Malnutrition Assessment: Malnutrition Status: Severe malnutrition Context: Chronic Illness Findings of the 6 clinical characteristics of malnutrition: Energy Intake: 75% or less estimated energy requirements for 1 month or longer Weight Loss: Greater than 10% over 6 months Body Fat Loss: Unable to assess Muscle Mass Loss: Unable to assess Fluid Accumulation: No significant fluid accumulation Manager Gallery Strength: Not Performed Nutrition Assessment: 32 year old woman with PMHx: HTN, anxiety and depression, Medullary sponge kidney and history of renal stones. Evaluated at [facility] 12/26/22 with flank pain, CT showed a 6 mm stone at the UPJ. Prescribed antibiotics, and pain medication with follow-up as outpatient with urology. Currently presents to [facility] with flank pain, no nausea, emesis, chills. Reports she never followed-up with urology as outpatient after presentation in December. Significant labs on admit: WBC(13.8), BUN(6). CT of abdomen and pelvis: Obstructing 1.1 cm proximal ureteral calculus, causing moderate left renal hydronephrosis with persistent distention of the left ureter along its course distal to the obstruction. Left kidney is edematous with perinephric stranding and edema likely reflecting a superimposed infectious/inflammatory process. 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 Urology consulted and decision made to pursue surgical intervention- planning transfer to [facility] for s/p ureteroscopy, laser lithotripsy and stent later today. Resting in bed at time of visit, easily roused for RDN assessment. Reports it has been too hot to eat lately, believes she has been eating 1-2 meals daily. Baseline eating two meals daily, denies changes in volume of food at meal times. RDN addressed ~14% weight loss over the past seven months- patient shrugged and said: My dad's been on me about my weight and doing better for my kids. Agreeable to strawberry Ensure post-op. No concerns to voice at this time. Post-visit disucssed with RN to confirm OR time today Estimated Daily Nutrient Needs: Energy Requirements Based On: Weight Used for Energy Requirements: [place] Weight for Energy Calculation (kg): 59 kg Total Energy Requirements (kcals/day): 3936-5814 (27-32 kcal/kg IBW) Weight Used for Protein Requirements: [place] Weight in Kg Used for Protein Requirements: 59 kg Estimated Total Protein (g/day): 59-89 (1.0-1.5 g protein/kg IBW) Estimated Daily Total Fluid (ml/day): Nutrition Related Findings: +I/O balance. No skin break down or edema noted. Denzel score=22/ +bm 03/12 with active bowel sounds. Meds and Labs reviewed Wound Type: None Current Nutrition Therapies: NPO diet NPO except: Sips of Water with Meds Current Oral Intake Average Meal Intake: NPO Average Supplements Intake: NPO Anthropometric Measures: Height: 167 cm (5' 5.75) Current Body Weight: 84.9 kg (187 lb 2.7 oz) (03/15/23) Weight Source: Bed Scale Admission Body Weight: 94.3 kg (208 lb) (stated 03/13) Usual Body Weight: 110 kg (243 lb) (08/08/22 per EMR review) % Weight Change (Calculated): -23 [place] Body Weight (lbs) (Calculated): 129 lbs [place] Body Weight (Kg) (Calculated): 59 kg % [place] Body Weight (Calculated): 145.1 % BMI (kg/m2) (Calculated): 30.4 Weight Adjustment For: No Adjustment BMI Categories: Obese Class 1 (BMI 30.0-34.9) Nutrition Diagnosis: In context of chronic illness, Severe malnutrition related to inadequate protein-energy intake as evidenced by weight loss greater than or equal to 10% in 6 months, poor intake prior to admission Nutrition Interventions: Nutrition Education/Counseling: Education not indicated Coordination of Nutrition Care: Continue to monitor while inpatient Goals: Goals: Initiate PO diet, by next RD assessment Nutrition Monitoring and Evaluation: Behavioral-Environmental Outcomes: None Identified Food/Nutrient Intake Outcomes: Food and Nutrient Intake Physical Signs/Symptoms Outcomes: Biochemical Data, Chewing or Swallowing, Nausea or Vomiting, GI Status, Fluid Status or Edema, Weight, Skin, Nutrition Focused Physical Findings, Meal Time Behavior, Hemodynamic Status Discharge Planning: Too soon to determine Naomi Alexandra RDN, LDN, Contact: [phone] Please review night physician's H&P for today's notes. Admitted for left moderate hydronephrosis, right UPJ stone. Continuing antibiotics Urology came and evaluated the patient planning for surgery tomorrow. N.p.o. after midnight. documented in this encounter [facility] 03-15-2023 Hospital course Narrative Discharge Summary Kenia Ortiz : 1990 ADMIT DATE: 03/15/2023 DISCHARGE DATE: 03/15/2023 PRIMARY CARE PHYSICIAN: Jonathan Martínez VISIT STATUS: Observation CODE STATUS: Prior DISCHARGE DIAGNOSES: Active Problems: There are no active Hospital Problems. Obstructing nephrolithiasis Probable Kidney infection Leukocytosis without sepsis Hypertension 5. Depression HOSPITAL COURSE: Initially patient got admitted due to obstructing nephrolithiasis, started treating with IV ceftriaxone urine culture sent, urology came and evaluated the patient recommended to transfer the patient to [facility] for the procedure. Initial plan was to direct transfer to [facility], but patient prefers getting discharged and driving herself to [facility]. Urology was okay with the plan, scheduled for surgery this afternoon on 03/15. Discharged patient in stable condition. CONSULTANTS: urology Appearance: Normal appearance. HENT: Head: Normocephalic and atraumatic. Cardiovascular: Rate and Rhythm: Normal rate and regular rhythm. Pulses: Normal pulses. Heart sounds: Normal heart sounds. Pulmonary: Effort: Pulmonary effort is normal. Breath sounds: Normal breath sounds. Abdominal: Palpations: Abdomen is soft. There is no mass. Tenderness: There is no abdominal tenderness. There is no guarding. Neurological: Mental Status: She is alert. DISCHARGE MEDICATIONS: Medication List ASK your doctor about these medications acyclovir 400 MG tablet Commonly known as: Zovirax albuterol 108 (90 Base) MCG/ACT inhaler benazepril 10 MG tablet Commonly known as: Lotensin Take 1 tablet (10 mg) by mouth daily. cefdinir 300 MG capsule Commonly known as: Omnicef Take 1 capsule (300 mg) by mouth 2 times daily for 5 days. escitalopram 20 MG tablet Commonly known as: Lexapro Take 1 tablet (20 mg) by mouth daily for 90 doses. 1 PO DIET: No diet orders on file ACTIVITY: No restriction. COMPLEXITY OF FOLLOW UP: [] Moderate Complexity: follow up within 7-14 calendar days (28892) [] Severe Complexity: follow up within 7 calendar days (62025) FOLLOW UP TESTING, PENDING RESULTS OR REFERRALS AT TRANSITIONAL CARE VISIT: [] Yes [] No DISPOSITION: Patient will be transporting herself with the [facility] for urological procedure FACILITY/HOME CARE AGENCY NAME: [facility] Follow up with No follow-up provider specified. INSTRUCTIONS TO MA/SW: Please call patient on day after discharge (must document patient contacted within 2 business days of discharge). FOLLOW UP QUESTIONS FOR MA/SW: 1. Did you get medications filled and taking them as instructed from discharge? 2. Are you following your discharge instructions from your hospital stay? 3. Please confirm patient is scheduled for a follow up appointment within the above time frame. DISCHARGE TIME: > 30 minutes SIGNED: Contreras Gordillo MD 03/15/2023, 1:07 PM documented in this encounter [facility] 03-15-2023 Note Formatting of this n ote might be different from the original. Spoke with pt at bedside, pt has private transportation that could transport her to [facility] as there is no transfer order in. Per bedside RN pt is on the OR schedule from -3 today. [facility] 03-15-2023 Note Formatting of this n ote might be different from the original. Spoke with pt at bedside, pt has private transportation that could transport her to [facility] as there is no transfer order in. Per bedside RN pt is on the OR schedule from 12-3 today. T [facility] 03-14-2023 Note Formatting of this n ote might be different from the original. Discussed with nursing No urology at [place] today or tomorrow Patient is added on for ureteroscopy, laser lithotripsy and stent with Dr Cristobal tomorrjeyson at [facility] Patient will need transfer to [facility] NPO after midnight [facility] Work Phone: 03-14-2023 Note Formatting of this n ote might be different from the original. Discussed with nursing No urology at [place] today or tomorrow Patient is added on for ureteroscopy, laser lithotripsy and stent with Dr Cristobal tomorrjeyson at [facility] Patient will need transfer to [facility] NPO after midnight [facility] Work Phone: 03-14-2023 Plan of care note Problem: Pain - Adult Goal: Verbalizes/displays adequate comfort level or baseline comfort level Outcome: Progressing Problem: Safety - Adult Goal: Free from fall injury Outcome: Progressing The patient is Moderately Stable - Low risk of patient condition declining or worsening The patient's goals for the shift include enough rest The clinical goals for the shift include patient to remain calm and pain free Over the shift, the patient did not make progress toward the following goals. Barriers to progression include none, goals met. Recommendations to address these barriers include none. [facility] 03-14-2023 Note Formatting of this n ote might be different from the original. Regulator Inspector following case for Discharge Needs. [facility] 03-14-2023 Note Formatting of this n ote might be different from the original. Regulator Inspector following case for Discharge Needs. [facility] 03-14-2023 Note Formatting of this n ote might be different from the original. Care Managment Initial Assessment Date: 03/14/2023 Patient Name: Kenia Ortiz : 1990 Patient Information Source of Information: Patient Cognition/Language: WFL - Within Functional Limits Permission given to speak with patient member services representative/caregiver as indicated: Yes Confirmation of Payer with patient/family: Yes Payer Name: [facility] : No Confirmation of Primary Care Physician: Confirmed PCP Name: Danettedelicia Seen in last 2 years?: Yes Primary Caregiver: Self If assistance needed, confirmed caregiver ready, willing and able to care for patient at discharge: Yes Confirmed with: per pt, fiance can assist Living Arrangements Current Residence: Apartment Number of Floors 1 Number of Entry Steps: 5 or more Bed/Bath Levels: Facility: Facility Name: Plan to Return: Lives with: Spouse/significant other, Children Support Systems: Spouse/significant other, Children, Parent, Family members, Friends/neighbors Activities of Daily Living Ambulation: Independent Bathing/Dressing: Independent Elimination/Continence/Toileting: Independent Feeding: Independent Who Assists with Activities of Daily Living: Instrumental Activities of Daily Living Prescription Coverage: Yes Pharmacy Used: [facility] Medication Management: Independent Transportation/Shopping: Independent Transportation Mode: Car Needs Assistance with Transportation at Discharge: No (fiance) Meal Preparation: Independent Laundry/Cleaning: Independent Finances/Bill Paying: Independent Communication: Independent Types of Care Services/Equipment Utilized Care Services: Dialysis Type: NA Durable Medical Equipment: Patient's Goal/Discharge Plan Patient expects to be discharged to: Home Discharge Planning Actions: No needs identified, Continue to follow Patient's Choice Rights and [employer] and Collaborative Relationships Disclosed as Indicated for Post-Acute Care: NA Interdisciplinary Team Engagement: Social Work Referral for: Additional Information: 32 yo female admitted to for L renal stone, on IV rocephin, Ucx pending, NPO and urology consulted. Met with pt at bedside, introduced self and explained role of tcc. Pt has insurance with RX coverage, active with PCP. Pt lives at home with fiance and daughter, independent at baseline, drives and has transportation home. Anticipates no needs at discharge, TCC to assist and follow as needed. Aure Pineda RN T [facility] 03-14-2023 Note Formatting of this n ote might be different from the original. Care Managment Initial Assessment Date: 03/14/2023 Patient Name: Kenia Ortiz : 1990 Patient Information Source of Information: Patient Cognition/Language: WFL - Within Functional Limits Permission given to speak with patient member services representative/caregiver as indicated: Yes Confirmation of Payer with patient/family: Yes Payer Name: [employer] Pillager: No Confirmation of Primary Care Physician: Confirmed PCP Name: Mauricio Seen in last 2 years?: Yes Primary Caregiver: Self If assistance needed, confirmed caregiver ready, willing and able to care for patient at discharge: Yes Confirmed with: per pt, fiance can assist Living Arrangements Current Residence: Apartment Number of Floors 1 Number of Entry Steps: 5 or more Bed/Bath Levels: Facility: Facility Name: Plan to Return: Lives with: Spouse/significant other, Children Support Systems: Spouse/significant other, Children, Parent, Family members, Friends/neighbors Activities of Daily Living Ambulation: Independent Bathing/Dressing: Independent Elimination/Continence/Toileting: Independent Feeding: Independent Who Assists with Activities of Daily Living: Instrumental Activities of Daily Living Prescription Coverage: Yes Pharmacy Used: [facility] Medication Management: Independent Transportation/Shopping: Independent Transportation Mode: Car Needs Assistance with Transportation at Discharge: No (fiance) Meal Preparation: Independent Laundry/Cleaning: Independent Finances/Bill Paying: Independent Communication: Independent Types of Care Services/Equipment Utilized Care Services: Dialysis Type: NA Durable Medical Equipment: Patient's Goal/Discharge Plan Patient expects to be discharged to: Home Discharge Planning Actions: No needs identified, Continue to follow Patient's Choice Rights and [employer] and Collaborative Relationships Disclosed as Indicated for Post-Acute Care: NA Interdisciplinary Team Engagement: Social Work Referral for: Additional Information: 32 yo female admitted to for L renal stone, on IV rocephin, Ucx pending, NPO and urology consulted. Met with pt at bedside, introduced self and explained role of tcc. Pt has insurance with RX coverage, active with PCP. Pt lives at home with fiance and daughter, independent at baseline, drives and has transportation home. Anticipates no needs at discharge, TCC to assist and follow as needed. Aure Pineda RN [facility] 03-14-2023 History and physical note Images from the original note were not included. Attending History and Physical Admit Date: 03/13/2023 PCP: Jonathan Martínez DO CHIEF COMPLAINT: flank pain Reason for Admission: obstructing Stone History Obtained From: patient HISTORY OF PRESENT ILLNESS: Kenia is a 32 y.o. female with past medical history nephrolithiasis diagnosed apprx 2 months ago, did not followup with urology as outpatient presents with 1 day flank pain. No N/V fevers or chills. Denies hematuria or dysuria. Found to have obstructing stone with hydronephrosis as well as an edematous kidney. 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 Past Surgical History: Past Surgical History: Procedure Laterality Date CHOLECYSTECTOMY 2008 TUBAL LIGATION 2019 VENTRAL HERNIA REPAIR 2017 twice Social History: Social History Socioeconomic History Marital status: Single Spouse name: Not on file Number of children: Not on file Years of education: Not on file Highest education level: Not on file Occupational History Not on file Tobacco Use Smoking status: Some Days Packs/day: 1.00 Types: Cigarettes Smokeless tobacco: Never Vaping Use Vaping Use: Never used Substance and Sexual Activity Alcohol use: Not Currently Drug use: No Types: Marijuana Sexual activity: Not on file Other Topics Concern Not on file Social History Narrative Engaged to Jeramie, has 2 dtrs and one son, SMOKER. Unemployed, of note does not have custody of her 2 oldest kids, did not divulge information. Presently her youngest daughter lives with her and her boyfriend. Social Determinants of Health Financial Resource Strain: Not on file Food Insecurity: Not on file Transportation Needs: Not on file Physical Activity: Not on file Stress: Not on file Social Connections: Not on file Intimate Partner Violence: Not on file Housing Stability: Not on file Family History: Family History Problem Relation Name Age of Onset No Known Problems Sister No Known Problems Brother No Known Problems Brother No Known Problems Mother Cancer Father unsure of type No Known Problems Brother No Known Problems Sister Medications Prior to Admission: No current facility-administered medications on file prior to encounter. Current Outpatient Medications on File Prior to Encounter Medication Sig Dispense Refill acyclovir (Zovirax) 400 MG tablet Take 400 mg by mouth. albuterol 108 (90 Base) MCG/ACT inhaler Inhale 2 puffs every 6 hours as needed. benazepril (Lotensin) 10 MG tablet Take 1 tablet (10 mg) by mouth daily. 90 tablet 0 escitalopram (Lexapro) 20 MG tablet Take 1 tablet (20 mg) by mouth daily for 90 doses. 90 tablet 0 MV-Min-Fe Fum-FA-DHA ( 1 PO) Take 200 mg by mouth in the morning. Allergies: Allergies Allergen Reactions Influenza Vaccine Surface Adjuvant, Inactivated Anaphylaxis Influenza A (H5n1) Tiss-Cult Adjuvanted [Influenza A (H5n1) Vaccine (Tissue-Cultured)] Other reaction(s): AOF Raspberry Hives Other reaction(s): AOF Other reaction(s): AOF REVIEW OF SYSTEMS: Constitutional: Negative for fever, chills, activity change and unexpected weight change. HEENT: Negative for congestion, postnasal drip and sneezing. Eyes: Negative for itching and visual disturbance. Respiratory: Negative for apnea, cough, choking, chest tightness, shortness of breath, wheezing and stridor. Cardiovascular: Negative for chest pain. Gastrointestinal: Negative for nausea, vomiting, abdominal pain, diarrhea and blood in stool. Genitourinary: Negative for dysuria, frequency and flank pain. Musculoskeletal: Negative for myalgias and joint swelling. Skin: Negative for rash. Neurological: Negative for dizziness, tremors, seizures, syncope, facial asymmetry, speech difficulty, weakness, numbness and headaches. Hematological: Negative for adenopathy. Psychiatric/Behavioral: Negative for suicidal ideas, behavioral problems, self-injury and dysphoric mood. Vitals: BP (!) 164/105 (BP Location: Right arm, Patient Position: Lying) Pulse 64 Temp 36.8 C (98.2 F) (Temporal) Resp 18 Ht 5' 5 (1.651 m) Wt 208 lb (94.3 kg) SpO2 99% BMI 34.61 kg/m BMI Classification: Obese (BMI 30.0-39.9) Pulse Ox: SpO2 Av.8 % Min: 97 % Max: 100 % Supplemental O2: PHYSICAL EXAM: Physical Exam Constitutional: Appearance: Normal appearance. HENT: Head: Normocephalic and atraumatic. Cardiovascular: Rate and Rhythm: Normal rate and regular rhythm. Pulses: Normal pulses. Heart sounds: Normal heart sounds. Pulmonary: Effort: Pulmonary effort is normal. Breath sounds: Normal breath sounds. Abdominal: Palpations: Abdomen is soft. There is no mass. Tenderness: There is no abdominal tenderness. There is no guarding. Neurological: Mental Status: She is alert. DATA: CBC: Recent Labs 03/13/23 2320 WBC 13.8* RBC 4.67 HGB 14.8 HCT 41.6 MCV 89.1 RDW 12.4 PLT 298 BMP: Recent Labs 03/13/23 2320 NA 139 K 3.7 CL 105 CO2 24 BUN 6* CREATININE 0.75 GLUCOSE 114* CALCIUM 9.2 ANIONGAP 9 LIVER PROFILE:No results for input(s): AST, ALT, BILITOT, ALKPHOS, PROT in the last 72 hours. No lab exists for component: LABALBU PT/INR: No results for input(s): PROTIME, INR in the last 72 hours. CARDIAC ENZYMES: No results for input(s): TROPONINI in the last 72 hours. Procalcitonin: No results found for: PROCAL Urine Culture: No results found for this or any previous visit. COVID-19 PCR: No results for input(s): COVID19 in the last 72 hours. I reviewed: [x] laboratory results [x] radiographic results At the time of today's encounter. Pt was advised of the results. IMPRESSION: Obstructing nephrolithiasis Probable Kidney infection Leukocytosis without sepsis Hypertension 5. Depression Medical Decision Making: Admit to F Pain control IV rocephin ans follow urine cx Urology consultation for stone mgmt Continue antihypertensive meds- hydralazine PRN -Discussed with ED provider and agree with their plan for admission -activity ad yelitza -am labs, replace lytes prn -vitals per routine -home meds as ordered -DVT prophylaxis: [] Lovenox [] Heparin [] SCDs [x] Encourage ambulation [] Already on Anticoagulation Extended Emergency Contact Information Primary Emergency Contact: Maxine Fermin Mobile Relation: Other Secondary Emergency Contact: Jeramie Solis Mobile Relation: Spouse Code status: Full Code -see below for additional orders, further recommendations to follow Orders Placed This Encounter Procedures Urine culture CT abdomen pelvis wo IV contrast CBC auto differential Urinalysis complete with reflex to Culture hCG, urine, qualitative Basic metabolic panel Complete Urinalysis NPO diet Vital Signs Notify patient's primary care provider of admission Activity No Restrictions Full code Inpatient consult to Urology Initiate Oxygen Therapy Protocol Insert peripheral IV Admit to inpatient Please forward a copy of this H&P to the patient's PCP. Thank you. [employer] Phone: 03-14-2023 History and physical note Images from the original note were not included. Attending History and Physical Admit Date: 03/13/2023 PCP: Jonathan Martínez DO CHIEF COMPLAINT: flank pain Reason for Admission: obstructing Stone History Obtained From: patient HISTORY OF PRESENT ILLNESS: Kenia is a 32 y.o. female with past medical history nephrolithiasis diagnosed apprx 2 months ago, did not followup with urology as outpatient presents with 1 day flank pain. No N/V fevers or chills. Denies hematuria or dysuria. Found to have obstructing stone with hydronephrosis as well as an edematous kidney. 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 Past Surgical History: Past Surgical History: Procedure Laterality Date CHOLECYSTECTOMY 2008 TUBAL LIGATION 2019 VENTRAL HERNIA REPAIR 2017 twice Social History: Social History Socioeconomic History Marital status: Single Spouse name: Not on file Number of children: Not on file Years of education: Not on file Highest education level: Not on file Occupational History Not on file Tobacco Use Smoking status: Some Days Packs/day: 1.00 Types: Cigarettes Smokeless tobacco: Never Vaping Use Vaping Use: Never used Substance and Sexual Activity Alcohol use: Not Currently Drug use: No Types: Marijuana Sexual activity: Not on file Other Topics Concern Not on file Social History Narrative Engaged to Jeramie, has 2 dtrs and one son, SMOKER. Unemployed, of note does not have custody of her 2 oldest kids, did not divulge information. Presently her youngest daughter lives with her and her boyfriend. Social Determinants of Health Financial Resource Strain: Not on file Food Insecurity: Not on file Transportation Needs: Not on file Physical Activity: Not on file Stress: Not on file Social Connections: Not on file Intimate Partner Violence: Not on file Housing Stability: Not on file Family History: Family History Problem Relation Name Age of Onset No Known Problems Sister No Known Problems Brother No Known Problems Brother No Known Problems Mother Cancer Father unsure of type No Known Problems Brother No Known Problems Sister Medications Prior to Admission: No current facility-administered medications on file prior to encounter. Current Outpatient Medications on File Prior to Encounter Medication Sig Dispense Refill acyclovir (Zovirax) 400 MG tablet Take 400 mg by mouth. albuterol 108 (90 Base) MCG/ACT inhaler Inhale 2 puffs every 6 hours as needed. benazepril (Lotensin) 10 MG tablet Take 1 tablet (10 mg) by mouth daily. 90 tablet 0 escitalopram (Lexapro) 20 MG tablet Take 1 tablet (20 mg) by mouth daily for 90 doses. 90 tablet 0 MV-Min-Fe Fum-FA-DHA ( 1 PO) Take 200 mg by mouth in the morning. Allergies: Allergies Allergen Reactions Influenza Vaccine Surface Adjuvant, Inactivated Anaphylaxis Influenza A (H5n1) Tiss-Cult Adjuvanted [Influenza A (H5n1) Vaccine (Tissue-Cultured)] Other reaction(s): AOF Raspberry Hives Other reaction(s): AOF Other reaction(s): AOF REVIEW OF SYSTEMS: Constitutional: Negative for fever, chills, activity change and unexpected weight change. HEENT: Negative for congestion, postnasal drip and sneezing. Eyes: Negative for itching and visual disturbance. Respiratory: Negative for apnea, cough, choking, chest tightness, shortness of breath, wheezing and stridor. Cardiovascular: Negative for chest pain. Gastrointestinal: Negative for nausea, vomiting, abdominal pain, diarrhea and blood in stool. Genitourinary: Negative for dysuria, frequency and flank pain. Musculoskeletal: Negative for myalgias and joint swelling. Skin: Negative for rash. Neurological: Negative for dizziness, tremors, seizures, syncope, facial asymmetry, speech difficulty, weakness, numbness and headaches. Hematological: Negative for adenopathy. Psychiatric/Behavioral: Negative for suicidal ideas, behavioral problems, self-injury and dysphoric mood. Vitals: BP (!) 164/105 (BP Location: Right arm, Patient Position: Lying) Pulse 64 Temp 36.8 C (98.2 F) (Temporal) Resp 18 Ht 5' 5 (1.651 m) Wt 208 lb (94.3 kg) SpO2 99% BMI 34.61 kg/m BMI Classification: Obese (BMI 30.0-39.9) Pulse Ox: SpO2 Av.8 % Min: 97 % Max: 100 % Supplemental O2: PHYSICAL EXAM: Physical Exam Constitutional: Appearance: Normal appearance. HENT: Head: Normocephalic and atraumatic. Cardiovascular: Rate and Rhythm: Normal rate and regular rhythm. Pulses: Normal pulses. Heart sounds: Normal heart sounds. Pulmonary: Effort: Pulmonary effort is normal. Breath sounds: Normal breath sounds. Abdominal: Palpations: Abdomen is soft. There is no mass. Tenderness: There is no abdominal tenderness. There is no guarding. Neurological: Mental Status: She is alert. DATA: CBC: Recent Labs 03/13/23 2320 WBC 13.8* RBC 4.67 HGB 14.8 HCT 41.6 MCV 89.1 RDW 12.4 PLT 298 BMP: Recent Labs 03/13/23 2320 NA 139 K 3.7 CL 105 CO2 24 BUN 6* CREATININE 0.75 GLUCOSE 114* CALCIUM 9.2 ANIONGAP 9 LIVER PROFILE:No results for input(s): AST, ALT, BILITOT, ALKPHOS, PROT in the last 72 hours. No lab exists for component: LABALBU PT/INR: No results for input(s): PROTIME, INR in the last 72 hours. CARDIAC ENZYMES: No results for input(s): TROPONINI in the last 72 hours. Procalcitonin: No results found for: PROCAL Urine Culture: No results found for this or any previous visit. COVID-19 PCR: No results for input(s): COVID19 in the last 72 hours. I reviewed: [x] laboratory results [x] radiographic results At the time of today's encounter. Pt was advised of the results. IMPRESSION: Obstructing nephrolithiasis Probable Kidney infection Leukocytosis without sepsis Hypertension 5. Depression Medical Decision Making: Admit to F Pain control IV rocephin ans follow urine cx Urology consultation for stone mgmt Continue antihypertensive meds- hydralazine PRN -Discussed with ED provider and agree with their plan for admission -activity ad yelitza -am labs, replace lytes prn -vitals per routine -home meds as ordered -DVT prophylaxis: [] Lovenox [] Heparin [] SCDs [x] Encourage ambulation [] Already on Anticoagulation Extended Emergency Contact Information Primary Emergency Contact: Maxine Fermin Relation: Other Secondary Emergency Contact: Jeramie Solis Mobile Relation: Spouse Code status: Full Code -see below for additional orders, further recommendations to follow Orders Placed This Encounter Procedures Urine culture CT abdomen pelvis wo IV contrast CBC auto differential Urinalysis complete with reflex to Culture hCG, urine, qualitative Basic metabolic panel Complete Urinalysis NPO diet Vital Signs Notify patient's primary care provider of admission Activity No Restrictions Full code Inpatient consult to Urology Initiate Oxygen Therapy Protocol Insert peripheral IV Admit to inpatient Please forward a copy of this H&P to the patient's PCP. Thank you. documented in this encounter [facility] 03-14-2023 Emergency department Note Physicians ROSALBA [id number] Kathleen Gonzalez RN 03/14/23 013 [facility] 03-14-2023 Emergency department Note Physicians [facility] [phone] Kathleen Gonzalez RN 03/14/23 013 Patient ambulated to restroom without difficulty Lillian Mancilla RN 03/14/23 0105 EMERGENCY DEPARTMENT ENCOUNTER Pt Name: Kenia Ortiz Birthdate 1990 Date of evaluation: 03/13/2023 ED Provider: Alverto Stearns DO CHIEF COMPLAINT Chief Complaint Patient presents with Flank Pain HISTORY OF PRESENT ILLNESS (Location/Symptom, Timing/Onset, Context/Setting, Quality, Duration, Modifying Factors, Severity) Note limiting factors. I wore appropriate PPE for the entirety of this encounter. HPI Kenia Ortiz is a 32 y.o. who presents to the emergency department with chief complaint of flank pain. Located on the left side. Started suddenly at about 3:30 PM earlier today when she was just sitting watching TV with her daughter. Pain does not radiate. No associated dysuria, hematuria, fever, chills, vomiting, diarrhea. States it does feel like prior episode of kidney stones. No recent abdominal surgeries. No abnormal vaginal bleeding or discharge as well. No concern for due to prior history of tubal ligation. Nursing Notes were reviewed. 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 ALBUTEROL 108 (90 BASE) MCG/ACT INHALER Inhale 2 puffs every 6 hours as needed. BENAZEPRIL (LOTENSIN) 10 MG TABLET Take 1 tablet (10 mg) by mouth daily. ESCITALOPRAM (LEXAPRO) 20 MG TABLET Take 1 tablet (20 mg) by mouth daily for 90 doses. MV-MIN-FE FUM-FA-DHA ( 1 PO) Take 200 mg by mouth in the morning. ALLERGIES Influenza vaccine surface adjuvant, inactivated; Influenza a (h5n1) tiss-cult adjuvanted [influenza a (h5n1) vaccine (tissue-cultured)]; and Raspberry FAMILY HISTORY Family History Problem Relation Name Age of Onset No Known Problems Sister No Known Problems Brother No Known Problems Brother No Known Problems Mother Cancer Father unsure of type No Known Problems Brother No Known Problems Sister SOCIAL HISTORY Social History Socioeconomic History Marital status: Single Tobacco Use Smoking status: Some Days Packs/day: 1.00 Types: Cigarettes Smokeless tobacco: Never Vaping Use Vaping Use: Never used Substance and Sexual Activity Alcohol use: Not Currently Drug use: No Types: Marijuana Social History Narrative Engaged to Jeramie, has 2 dtrs and one son, SMOKER. Unemployed, of note does not have custody of her 2 oldest kids, did not divulge information. Presently her youngest daughter lives with her and her boyfriend. SCREENINGS Barbra Coma Scale Best Eye Response: Spontaneous Best Verbal Response: Oriented Best Motor Response: Follows commands [place] Coma Scale Score: 15 PHYSICAL EXAM ED Triage Vitals [03/13/23 2308] Temp Heart Rate Resp BP 36.2 C (97.1 F) 67 18 (!) 177/108 SpO2 Temp Source Heart Rate Source Patient Position 100 % Oral -- -- BP Location FiO2 (%) -- -- Physical Exam Vitals and nursing note reviewed. Constitutional: General: She is not in acute distress. Appearance: She is well-developed. HENT: Head: Normocephalic and atraumatic. Eyes: Conjunctiva/sclera: Conjunctivae normal. Cardiovascular: Rate and Rhythm: Normal rate and regular rhythm. Heart sounds: No murmur heard. Pulmonary: Effort: Pulmonary effort is normal. No respiratory distress. Breath sounds: Normal breath sounds. Abdominal: General: Bowel sounds are normal. Palpations: Abdomen is soft. Tenderness: There is no abdominal tenderness. There is left CVA tenderness. There is no guarding or rebound. Musculoskeletal: General: No swelling. Cervical back: Neck supple. Skin: General: Skin is warm and dry. Capillary Refill: Capillary refill takes less than 2 seconds. Neurological: Mental Status: She is alert. Psychiatric: Mood and Affect: Mood normal. DIAGNOSTIC RESULTS RADIOLOGY (Per Emergency Physician): Interpretation per the Radiologist below, if available at the time of this note: CT abdomen pelvis wo IV contrast Final Result 1. Obstructing 1.1 cm proximal ureteral calculus in similar position to prior imaging on 12/26/2022 causing moderate left renal hydronephrosis with persistent distention of the left ureter along its course distal to the obstruction. The left kidney is edematous with perinephric stranding and edema likely reflecting a superimposed infectious/inflammatory process. 2. 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 3. Cholecystectomy. 4. Additional stable findings, as above. Report Dictated on Electronically Signed By: Padmaja Amin Electronically Signed Date/Time: 03/14/2023 12:20 AM EDT LABS: Labs Reviewed CBC WITH AUTO DIFFERENTIAL - Abnormal Result Value Auto WBC 13.8 (*) RBC 4.67 Hemoglobin 14.8 Hematocrit 41.6 MCV 89.1 MCH 31.7 MCHC 35.6 RDW 12.4 Platelets 298 MPV 8.9 Neutrophils Relative 70.8 Lymphocytes Relative 21.0 Monocytes Relative 5.0 Eosinophils Relative 2.5 Basophils Relative 0.4 Immature Grans % 0.3 (*) Neutrophils Absolute 9.8 (*) Lymphocytes Absolute 2.9 Monocytes Absolute 0.7 Eosinophils Absolute 0.3 Basophils Absolute 0.1 Immature Grans Absolute 0.0 BASIC METABOLIC PANEL - Abnormal SODIUM 139 POTASSIUM 3.7 CHLORIDE 105 CARBON DIOXIDE 24 UREA NITROGEN 6 (*) CREATININE 0.75 GLUCOSE 114 (*) CALCIUM 9.2 ANION GAP 9 eGFR >90.0 COMPLETE URINALYSIS - Abnormal Color, Urine Light Yellow Clarity, Urine Clear pH, Urine 6.0 Leukocytes, Urine 75 (*) Nitrite, Urine Negative Protein, Urine 30 (*) Glucose, Urine Normal Bilirubin, Urine Negative Ketones, Urine Negative Urobilinogen, Urine Normal Blood, Urine 0.1 (*) Volume, Urine 8-12 mL RBC, Urine 6-10 (*) WBC, Urine 3-5 Squamous Epithelial, Urine 6-10 (*) Bacteria, Urine Few (*) SPECIFIC GRAVITY OF URINE (NUMERIC) 1.008 URINE CULTURE COMPLETE URINALYSIS WITH REFLEX TO CULTURE Narrative: The following orders were created for panel order Urinalysis complete with reflex to Culture. Procedure Abnormality Status --------- ------ Complete Urinalysis[[id number]] Abnormal Final result Please view results for these tests on the individual orders. HCG QUALITATIVE URINE HCG,URINE QUAL Negative Narrative: is the most common reason for HCG in urine, although choriocarcinoma, hydatidiform mole, and certain nontrophoblastic malignancies also result in detectable urinary HCG levels. Sensitivity = 20mIU/mL. All other labs were within normal range or not returned as of this dictation. EMERGENCY DEPARTMENT COURSE and DIFFERENTIAL DIAGNOSIS/MDM: Vitals: Vitals: 03/13/23 2308 03/13/23 2311 06/29/3403/14/2335 BP: (!) 177/108 (!) 147/90 BP Location: Left arm Patient Position: Sitting Pulse: 67 73 Resp: 18 18 Temp: 36.2 C (97.1 F) TempSrc: Oral SpO2: 100% 100% 98% Weight: 94.3 kg (208 lb) 94.3 kg (208 lb) Height: 1.651 m (5' 5) Medications cefTRIAXone (Rocephin) 1,000 mg in sodium chloride 0.9 % 50 mL IVPB Mini-Bag Plus (1,000 mg IntraVENous New Bag 03/14/2343) morphine sulfate (PF) injection 4 mg (4 mg IntraVENous Given 03/13/232323) ondansetron (Zofran) injection 4 mg (4 mg IntraVENous Given 03/13/232323) HYDROmorphone (Dilaudid) injection 0.5 mg (0.5 mg IntraVENous Given 03/14/2338) Patient with large left ureteral stone with associated hydronephrosis and now calcification middle ear system and fat stranding. She did have CVA tenderness on exam. No signs of sepsis clinically. However, given the bacteriuria, flank tenderness, and WBC elevation, started on antibiotics. Urine culture obtained. Given the size of the stone and low likelihood of spontaneous passage as well as the associated perinephric findings, I do believe patient would warrant further evaluation with urology for possible lithotripsy and/or stenting. Will be admitted. FINAL IMPRESSION 1. Obstruction of left ureteropelvic junction (UPJ) due to stone DISPOSITION Admit 03/14/2023 12:59:48 AM PATIENT REFERRED TO: No follow-up provider specified. DISCHARGE MEDICATIONS: New Prescriptions No medications on file (Comment: Please note this report has been produced using speech recognition software and may contain errors related to that system including errors in grammar, punctuation, and spelling, as well as words and phrases that may be inappropriate. If there are any questions or concerns please feel free to contact the dictating provider for clarification.) Alverto Stearns DO (electronically signed) Emergency Medicine Provider Alverto Stearns DO 03/14/234 Pt presents with left sided flank pain since 1529 today. Pt denies urinary symptoms. documented in this encounter [facility] 03-14-2023 Emergency department Note Patient ambulated to restroom without difficulty Lillian Mancilla RN 03/14/23 0105 [facility] 03-13-2023 Emergency department Triage note Pt presents with left sided flank pain since 1529 today. Pt denies urinary symptoms. [facility] 03-13-2023 Physician Emergency department Note EMERGENCY DEPARTMENT ENCOUNTER Pt Name: Kenia Ortiz Birthdate 1990 Date of evaluation: 03/13/2023 ED Provider: Alverto Stearns DO CHIEF COMPLAINT Chief Complaint Patient presents with Flank Pain HISTORY OF PRESENT ILLNESS (Location/Symptom, Timing/Onset, Context/Setting, Quality, Duration, Modifying Factors, Severity) Note limiting factors. I wore appropriate PPE for the entirety of this encounter. HPI Kenia Ortiz is a 32 y.o. who presents to the emergency department with chief complaint of flank pain. Located on the left side. Started suddenly at about 3:30 PM earlier today when she was just sitting watching TV with her daughter. Pain does not radiate. No associated dysuria, hematuria, fever, chills, vomiting, diarrhea. States it does feel like prior episode of kidney stones. No recent abdominal surgeries. No abnormal vaginal bleeding or discharge as well. No concern for due to prior history of tubal ligation. Nursing Notes were reviewed. 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 ALBUTEROL 108 (90 BASE) MCG/ACT INHALER Inhale 2 puffs every 6 hours as needed. BENAZEPRIL (LOTENSIN) 10 MG TABLET Take 1 tablet (10 mg) by mouth daily. ESCITALOPRAM (LEXAPRO) 20 MG TABLET Take 1 tablet (20 mg) by mouth daily for 90 doses. MV-MIN-FE FUM-FA-DHA ( 1 PO) Take 200 mg by mouth in the morning. ALLERGIES Influenza vaccine surface adjuvant, inactivated; Influenza a (h5n1) tiss-cult adjuvanted [influenza a (h5n1) vaccine (tissue-cultured)]; and Raspberry FAMILY HISTORY Family History Problem Relation Name Age of Onset No Known Problems Sister No Known Problems Brother No Known Problems Brother No Known Problems Mother Cancer Father unsure of type No Known Problems Brother No Known Problems Sister SOCIAL HISTORY Social History Socioeconomic History Marital status: Single Tobacco Use Smoking status: Some Days Packs/day: 1.00 Types: Cigarettes Smokeless tobacco: Never Vaping Use Vaping Use: Never used Substance and Sexual Activity Alcohol use: Not Currently Drug use: No Types: Marijuana Social History Narrative Engaged to Jeramie, has 2 dtrs and one son, SMOKER. Unemployed, of note does not have custody of her 2 oldest kids, did not divulge information. Presently her youngest daughter lives with her and her boyfriend. SCREENINGS Barbra Coma Scale Best Eye Response: Spontaneous Best Verbal Response: Oriented Best Motor Response: Follows commands [place] Coma Scale Score: 15 PHYSICAL EXAM ED Triage Vitals [03/13/23 2308] Temp Heart Rate Resp BP 36.2 C (97.1 F) 67 18 (!) 177/108 SpO2 Temp Source Heart Rate Source Patient Position 100 % Oral -- -- BP Location FiO2 (%) -- -- Physical Exam Vitals and nursing note reviewed. Constitutional: General: She is not in acute distress. Appearance: She is well-developed. HENT: Head: Normocephalic and atraumatic. Eyes: Conjunctiva/sclera: Conjunctivae normal. Cardiovascular: Rate and Rhythm: Normal rate and regular rhythm. Heart sounds: No murmur heard. Pulmonary: Effort: Pulmonary effort is normal. No respiratory distress. Breath sounds: Normal breath sounds. Abdominal: General: Bowel sounds are normal. Palpations: Abdomen is soft. Tenderness: There is no abdominal tenderness. There is left CVA tenderness. There is no guarding or rebound. Musculoskeletal: General: No swelling. Cervical back: Neck supple. Skin: General: Skin is warm and dry. Capillary Refill: Capillary refill takes less than 2 seconds. Neurological: Mental Status: She is alert. Psychiatric: Mood and Affect: Mood normal. DIAGNOSTIC RESULTS RADIOLOGY (Per Emergency Physician): Interpretation per the Radiologist below, if available at the time of this note: CT abdomen pelvis wo IV contrast Final Result 1. Obstructing 1.1 cm proximal ureteral calculus in similar position to prior imaging on 12/26/2022 causing moderate left renal hydronephrosis with persistent distention of the left ureter along its course distal to the obstruction. The left kidney is edematous with perinephric stranding and edema likely reflecting a superimposed infectious/inflammatory process. 2. 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 3. Cholecystectomy. 4. Additional stable findings, as above. Report Dictated on Electronically Signed By: Padmaja Amin Electronically Signed Date/Time: 03/14/2023 12:20 AM EDT LABS: Labs Reviewed CBC WITH AUTO DIFFERENTIAL - Abnormal Result Value Auto WBC 13.8 (*) RBC 4.67 Hemoglobin 14.8 Hematocrit 41.6 MCV 89.1 MCH 31.7 MCHC 35.6 RDW 12.4 Platelets 298 MPV 8.9 Neutrophils Relative 70.8 Lymphocytes Relative 21.0 Monocytes Relative 5.0 Eosinophils Relative 2.5 Basophils Relative 0.4 Immature Grans % 0.3 (*) Neutrophils Absolute 9.8 (*) Lymphocytes Absolute 2.9 Monocytes Absolute 0.7 Eosinophils Absolute 0.3 Basophils Absolute 0.1 Immature Grans Absolute 0.0 BASIC METABOLIC PANEL - Abnormal SODIUM 139 POTASSIUM 3.7 CHLORIDE 105 CARBON DIOXIDE 24 UREA NITROGEN 6 (*) CREATININE 0.75 GLUCOSE 114 (*) CALCIUM 9.2 ANION GAP 9 eGFR >90.0 COMPLETE URINALYSIS - Abnormal Color, Urine Light Yellow Clarity, Urine Clear pH, Urine 6.0 Leukocytes, Urine 75 (*) Nitrite, Urine Negative Protein, Urine 30 (*) Glucose, Urine Normal Bilirubin, Urine Negative Ketones, Urine Negative Urobilinogen, Urine Normal Blood, Urine 0.1 (*) Volume, Urine 8-12 mL RBC, Urine 6-10 (*) WBC, Urine 3-5 Squamous Epithelial, Urine 6-10 (*) Bacteria, Urine Few (*) SPECIFIC GRAVITY OF URINE (NUMERIC) 1.008 URINE CULTURE COMPLETE URINALYSIS WITH REFLEX TO CULTURE Narrative: The following orders were created for panel order Urinalysis complete with reflex to Culture. Procedure Abnormality Status --------- ------ Complete Urinalysis[[id number]] Abnormal Final result Please view results for these tests on the individual orders. HCG QUALITATIVE URINE HCG,URINE QUAL Negative Narrative: is the most common reason for HCG in urine, although choriocarcinoma, hydatidiform mole, and certain nontrophoblastic malignancies also result in detectable urinary HCG levels. Sensitivity = 20mIU/mL. All other labs were within normal range or not returned as of this dictation. EMERGENCY DEPARTMENT COURSE and DIFFERENTIAL DIAGNOSIS/MDM: Vitals: Vitals: 03/13/23 2308 03/13/23 2311 03/14/23 0035 03/14/23 0036 BP: (!) 177/108 (!) 147/90 BP Location: Left arm Patient Position: Sitting Pulse: 67 73 Resp: 18 18 Temp: 36.2 C (97.1 F) TempSrc: Oral SpO2: 100% 100% 98% Weight: 94.3 kg (208 lb) 94.3 kg (208 lb) Height: 1.651 m (5' 5) Medications cefTRIAXone (Rocephin) 1,000 mg in sodium chloride 0.9 % 50 mL IVPB Mini-Bag Plus (1,000 mg IntraVENous New Bag 03/14/2343) morphine sulfate (PF) injection 4 mg (4 mg IntraVENous Given 03/13/232323) ondansetron (Zofran) injection 4 mg (4 mg IntraVENous Given 03/13/232323) HYDROmorphone (Dilaudid) injection 0.5 mg (0.5 mg IntraVENous Given 03/14/23 0039) Patient with large left ureteral stone with associated hydronephrosis and now calcification middle ear system and fat stranding. She did have CVA tenderness on exam. No signs of sepsis clinically. However, given the bacteriuria, flank tenderness, and WBC elevation, started on antibiotics. Urine culture obtained. Given the size of the stone and low likelihood of spontaneous passage as well as the associated perinephric findings, I do believe patient would warrant further evaluation with urology for possible lithotripsy and/or stenting. Will be admitted. FINAL IMPRESSION 1. Obstruction of left ureteropelvic junction (UPJ) due to stone DISPOSITION Admit 03/14/2023 12:59:48 AM PATIENT REFERRED TO: No follow-up provider specified. DISCHARGE MEDICATIONS: New Prescriptions No medications on file (Comment: Please note this report has been produced using speech recognition software and may contain errors related to that system including errors in grammar, punctuation, and spelling, as well as words and phrases that may be inappropriate. If there are any questions or concerns please feel free to contact the dictating provider for clarification.) Alverto Stearns DO (electronically signed) Emergency Medicine Provider Alverto Stearns DO 03/14/23 0104 [facility] 02-19-2023 Telephone encounter Note Pt is scheduled 03/06/2023 [facility] 02-19-2023 Miscellaneous Notes Pt is scheduled 03/06/2023 L/M for patient to call and schedule a check up soon. Please assist in scheduling Refill completed, patient overdue for checkup Rx loaded Medication name: benazepril Medication dosage: 10 mg (Miligrams Monthly quantity needed: 90 How many day supply requestin days Medication route: oral (PO) Medication administration time(s): daily If taking medication PRN, reason for taking medication: N/A If this is a controlled substance do you receive this or any other controlled medication from any other doctor or facility: No Ordering provider: Mauricio Date of last office visit: 11.28.22 Date of next office visit: None listed Date of last refill: (see medication tab): 08.07.22 Updated/Validated preferred pharmacy: Yes Patient instructed to contact the pharmacy prior to picking up the medication: Yes documented in this encounter [facility] 02-15-2023 History of Present illness Narrative Images from the original note were not included. [facility] [id number] [facility] [id number] Dept Visit Date: 02/15/23 HPI: Kenia Ortiz is a 32 y.o. female who presents today for: Chief Complaint Patient presents with Sore Throat Patient has had sore throat for 2 weeks and now a productive cough of green sputum. Forehead temp is 97.3. Patient sees white and green bumps on tonsils also. Patient's voice has become hoarse. POD schedule, pt of Dr. Martínez, scheduled here for same day evaluation of sore through, productive cough. HPI Upper Respiratory Infection: Patient complains of symptoms of a URI. Symptoms include cough, sore throat, and loss of voice . Onset of symptoms was 2 weeks ago, gradually improving since that time. She is drinking plenty of fluids. Evaluation to date: none. Treatment to date: cough suppressants and throat lozenges, chloraseptic spray . Current Outpatient Medications Medication Sig Dispense Refill acyclovir (Zovirax) 400 MG tablet Take 400 mg by mouth. albuterol 108 (90 Base) MCG/ACT inhaler Inhale 2 puffs every 6 hours as needed. benazepril (Lotensin) 10 MG tablet Take 1 tablet (10 mg) by mouth daily. 90 tablet 0 escitalopram (Lexapro) 20 MG tablet Take 1 tablet (20 mg) by mouth daily for 90 doses. 90 tablet 0 MV-Min-Fe Fum-FA-DHA ( 1 PO) Take 200 mg by mouth in the morning. No current facility-administered medications for this visit. 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 HENT: Positive for sore throat and voice change. Negative for congestion, ear discharge, ear pain, postnasal drip, sinus pressure, sinus pain, sneezing and trouble swallowing. Eyes: Negative for pain, discharge and itching. Respiratory: Positive for cough. Negative for shortness of breath and wheezing. Neurological: Negative for headaches. Objective: BP (!) 144/92 (BP Location: Right arm, Patient Position: Sitting, BP Cuff Size: Large adult) Pulse 90 Ht 5' 5 (1.651 m) Wt 208 lb (94.3 kg) SpO2 96% BMI 34.61 kg/m Physical Exam Vitals and nursing note reviewed. Constitutional: General: She is not in acute distress. Appearance: Normal appearance. She is not ill-appearing or toxic-appearing. HENT: Head: Normocephalic and atraumatic. Right Ear: Tympanic membrane, ear canal and external ear normal. Left Ear: Tympanic membrane, ear canal and external ear normal. Nose: Nose normal. Mouth/Throat: Mouth: Mucous membranes are moist. Pharynx: Posterior oropharyngeal erythema present. No oropharyngeal exudate. Eyes: Conjunctiva/sclera: Conjunctivae normal. Cardiovascular: Heart sounds: Normal heart sounds. Pulmonary: Breath sounds: Normal breath sounds. Lymphadenopathy: Cervical: No cervical adenopathy. Neurological: Mental Status: She is alert and oriented to person, place, and time. Assessment: Diagnosis Plan 1. Laryngitis 2. Viral pharyngitis Plan: Kenia was seen today for sore throat. Diagnoses and all orders for this visit: Laryngitis (Primary) Acute, self limiting. Reassurance provided, sx will improve on own. No further intervention is indicated. Viral uri with cough Improving. Continue to treat symptoms as needed with warm salt water gargles, tylenol, throat lozenges, cough suppressants as needed. Follow up if symptoms worsen or fail to improve. KRSYTA Mendez 02/15/2023 2:22 PM documented in this encounter [facility] 02-14-2023 Telephone encounter Note L/M for patient to call and schedule a check up soon. [facility] 02-14-2023 Miscellaneous Notes L/M for patient to call and schedule a check up soon. Please assist in scheduling Refill completed, patient overdue for checkup Rx loaded Medication name: benazepril Medication dosage: 10 mg (Miligrams Monthly quantity needed: 90 How many day supply requestin days Medication route: oral (PO) Medication administration time(s): daily If taking medication PRN, reason for taking medication: N/A If this is a controlled substance do you receive this or any other controlled medication from any other doctor or facility: No Ordering provider: Mauricio Date of last office visit: 11.28.22 Date of next office visit: None listed Date of last refill: (see medication tab): 08.07.22 Updated/Validated preferred pharmacy: Yes Patient instructed to contact the pharmacy prior to picking up the medication: Yes documented in this encounter [facility] 02-14-2023 Telephone encounter Note Please assist in scheduling [facility] 02-14-2023 Telephone encounter Note Refill completed, patient overdue for checkup [facility] 02-14-2023 Telephone encounter Note Rx loaded [facility] 02-14-2023 Telephone encounter Note Medication name: benazepril Medication dosage: 10 mg (Miligrams Monthly quantity needed: 90 How many day supply requestin days Medication route: oral (PO) Medication administration time(s): daily If taking medication PRN, reason for taking medication: N/A If this is a controlled substance do you receive this or any other controlled medication from any other doctor or facility: No Ordering provider: Mauricio Date of last office visit: 11.28.22 Date of next office visit: None listed Date of last refill: (see medication tab): 08.07.22 Updated/Validated preferred pharmacy: Yes Patient instructed to contact the pharmacy prior to picking up the medication: Yes [facility] 12-26-2022 Emergency department Note EMERGENCY DEPARTMENT ENCOUNTER Pt Name: Kenia Ortiz Birthdate 1990 Date of evaluation: 12/26/2022 ED Provider: Alejandro Kaplan DO CHIEF COMPLAINT Chief Complaint Patient presents with Flank Pain HISTORY OF PRESENT ILLNESS (Location/Symptom, Timing/Onset, Context/Setting, Quality, Duration, Modifying Factors, Severity) Note limiting factors. I wore appropriate PPE for the entirety of this encounter. HPI Kenai Ortiz is a 32 y.o. female who presents to the emergency department with flank pain. The patient reports symptoms started 2 hours ago. Pain is located left flank, described as sharp, severe in intensity. Admits to 1 episode of nonbloody nonbilious emesis. Patient admits to history of kidney stones. Denies urinary symptoms. Admits to prior history of cholecystectomy and tubal ligation. Nursing Notes were reviewed. Limitations to history: Outside historians: REVIEW OF SYSTEMS Review of Systems Genitourinary: Positive for flank pain. 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 ALBUTEROL 108 (90 BASE) MCG/ACT INHALER Inhale 2 puffs every 6 hours as needed. BENAZEPRIL (LOTENSIN) 10 MG TABLET Take 10 mg by mouth in the morning. ESCITALOPRAM (LEXAPRO) 20 MG TABLET Take 1 tablet (20 mg) by mouth daily for 90 doses. MV-MIN-FE FUM-FA-DHA ( 1 PO) Take 200 mg by mouth in the morning. ALLERGIES Influenza vaccine surface adjuvant, inactivated; Influenza a (h5n1) tiss-cult adjuvanted [influenza a (h5n1) vaccine (tissue-cultured)]; and Raspberry FAMILY HISTORY Family History Problem Relation Name Age of Onset No Known Problems Sister No Known Problems Brother No Known Problems Brother No Known Problems Mother Cancer Father unsure of type No Known Problems Brother No Known Problems Sister SOCIAL HISTORY Social History Socioeconomic History Marital status: Single Tobacco Use Smoking status: Former Packs/day: 1.00 Types: Cigarettes Smokeless tobacco: Never Substance and Sexual Activity Alcohol use: Not Currently Drug use: No Social History Narrative Engaged to Jeramie, has 2 dtrs and one son, SMOKER. Unemployed, of note does not have custody of her 2 oldest kids, did not divulge information. Presently her youngest daughter lives with her and her boyfriend. SCREENINGS PHYSICAL EXAM ED Triage Vitals Temp Pulse Resp BP -- -- -- -- SpO2 Temp src Heart Rate Source Patient Position -- -- -- -- BP Location FiO2 (%) -- -- Physical Exam Constitutional: General: She is not in acute distress. HENT: Head: Normocephalic. Eyes: Conjunctiva/sclera: Conjunctivae normal. Pulmonary: Effort: Pulmonary effort is normal. Abdominal: General: Abdomen is flat. Tenderness: There is no abdominal tenderness. There is no right CVA tenderness or left CVA tenderness. Musculoskeletal: General: No deformity. Skin: General: Skin is warm and dry. Psychiatric: Mood and Affect: Mood normal. DIAGNOSTIC RESULTS RADIOLOGY (Per Emergency Physician): Interpretation per the Radiologist below, if available at the time of this note: CT abdomen pelvis wo IV contrast Final Result 1. Mild left renal hydronephrosis due to an obstructing 6 mm proximal ureteral calculus at the UPJ. This appears similar to 02/19/2022. There is stranding in the surrounding fat concerning for infectious/inflammatory process. 2. Medullary sponge disease. 3. Mild bladder wall thickening, correlate for cystitis. 4. Cholecystectomy. Report Dictated on Electronically Signed By: Padmaja Amin Electronically Signed Date/Time: 12/26/2022 4:11 AM EDT LABS: Labs Reviewed BASIC METABOLIC PANEL - Abnormal Result Value SODIUM 136 POTASSIUM 3.8 CHLORIDE 104 CARBON DIOXIDE 28 UREA NITROGEN 9 CREATININE 0.65 GLUCOSE 140 (*) CALCIUM 9.0 ANION GAP 3 eGFR >90.0 COMPLETE URINALYSIS - Abnormal Color, Urine Light Yellow Clarity, Urine Turbid (*) pH, Urine 6.5 Leukocytes, Urine 75 (*) Nitrite, Urine Negative Protein, Urine 20 (*) Glucose, Urine Normal Bilirubin, Urine Negative Ketones, Urine Negative Urobilinogen, Urine Normal Blood, Urine >1.0 (*) Volume, Urine 12 mL RBC, Urine 51-100 (*) WBC, Urine 6-10 (*) Squamous Epithelial, Urine 6-10 (*) Bacteria, Urine Few (*) SPECIFIC GRAVITY OF URINE (NUMERIC) 1.018 CBC (HEMOGRAM) - Normal Auto WBC 8.6 RBC 4.39 Hemoglobin 13.9 Hematocrit 40.2 MCV 91.6 MCH 31.7 MCHC 34.6 RDW 12.7 Platelets 299 MPV 9.0 COMPLETE URINALYSIS WITH REFLEX TO CULTURE Narrative: The following orders were created for panel order Urinalysis complete with reflex to Culture. Procedure Abnormality Status --------- ------ Complete Urinalysis[[id number]] Abnormal Final result Please view results for these tests on the individual orders. All other labs were within normal range or not returned as of this dictation. EMERGENCY DEPARTMENT COURSE and DIFFERENTIAL DIAGNOSIS/MDM: Vitals: Vitals: 12/26/22 0217 12/26/22 0222 12/26/22 0345 BP: (!) 158/86 136/78 Pulse: 61 Resp: 18 Temp: 36.6 C (97.9 F) SpO2: 99% Medications ondansetron (Zofran) 4 MG/2ML injection - Pyxis ADS Override Pull (has no administration in time range) ketorolac (Toradol) injection 15 mg (15 mg IntraVENous Given 12/26/22 0236) morphine sulfate (PF) injection 4 mg (4 mg IntraVENous Given 12/26/22 0237) ondansetron (Zofran) injection 4 mg (4 mg IntraVENous Given 12/26/22 0243) sulfamethoxazole-trimethoprim (Bactrim DS) 800-160 MG per tablet 1 tablet (1 tablet Oral Given 12/26/22 0345) ketorolac (Toradol) injection 15 mg (15 mg IntraVENous Given 12/26/22 0345) morphine sulfate (PF) injection 4 mg (4 mg IntraVENous Given 12/26/22 0346) MDM The patient presented with chief complaint of flank pain. The patient appears well, no acute distress, vitals are stable. No CVA tenderness on physical exam.. The differential diagnosis associated with this patient's presentation includes pyelonephritis, ureterolithiasis, diverticulitis. Our workup consisted of ordering/reviewing: CT abdomen and pelvis, CBC, BMP, urinalysis. To aid in management, I performed an independent interpretation of all laboratory tests, EKG, imaging, and other diagnostics ordered. Blood counts, kidney function, electrolytes are negative for acute processes. Urinalysis reveals bacteriuria, leukocytes, and squamous cells. The patient is not complaining of any urinary symptoms. CT scan reveals obstructing 6 mm stone at the UPJ, similar to previous study in February 2022. Given that the patient does have an obstructing stone she will be treated for UTI. The patient was updated on results, questions were answered. Considered admission, however the patient's pain is currently well controlled, no evidence of JEAN-PAUL, no SIRS criteria, and she is able to tolerate p.o. The patient will be discharged with pain control, antibiotics, and close follow-up to urology. The patient was instructed to return back to the emergency department immediately if her symptoms change or worsen. The patient demonstrated general understanding and was agreeable to medical plan. Estrellita Kaplan DO am the electoral officer of record. PROCEDURES: Unless otherwise noted below, none Procedures FINAL IMPRESSION 1. Ureterolithiasis 2. UTI (urinary tract infection), bacterial DISPOSITION Discharge 12/26/2022 04:16:21 AM PATIENT REFERRED TO: [facility] Urology [address] [facility] [address] [facility] [address] Schedule an appointment as soon as possible for a visit Jonathan Martínez DO [address] [place] [phone] Schedule an appointment as soon as possible for a visit [facility] ED [address] [facility] [phone] If symptoms worsen DISCHARGE MEDICATIONS: New Prescriptions HYDROCODONE-ACETAMINOPHEN (NORCO) 5-325 MG TABLET Take 1 tablet by mouth every 6 hours as needed for severe pain (7-10) for up to 3 days. KETOROLAC (TORADOL) 10 MG TABLET Take 1 tablet (10 mg) by mouth every 6 hours as needed for moderate pain (4-6) for up to 5 days. SULFAMETHOXAZOLE-TRIMETHOPRIM (BACTRIM DS) 800-160 MG TABLET Take 1 tablet by mouth 2 times daily for 7 days. (Comment: Please note this report has been produced using speech recognition software and may contain errors related to that system including errors in grammar, punctuation, and spelling, as well as words and phrases that may be inappropriate. If there are any questions or concerns please feel free to contact the dictating provider for clarification.) Alejandro Kaplan DO (electronically signed) Emergency Medicine Provider Alejandro Kaplan DO 12/26/22 042 Pt presents to the ED w c/o left flank pain. Pain started 3 hours group captain. Pt denies urinary sx. Last bm 2 days ago. Pain level 10/10. Pt has not taken any otc meds group captain Urine specimen sent to lab Pt given dc instructions and follow up care. Pt verbalizes understanding. IV dc'd, cannula intact. Pt amb indep to [place] area, home w [facility] documented in this encounter [facility] 12-26-2022 Emergency department Triage note Pt presents to the ED w c/o left flank pain. Pain started 3 hours group captain. Pt denies urinary sx. Last bm 2 days ago. Pain level 10/10. Pt has not taken any otc meds group captain [facility] 12-26-2022 Emergency department Triage note Urine specimen sent to lab [facility] 12-26-2022 Emergency department Triage note Pt given dc instructions and follow up care. Pt verbalizes understanding. IV dc'd, cannula intact. Pt amb indep to dc area, home w fiance [facility] 12-26-2022 Physician Emergency department Note EMERGENCY DEPARTMENT ENCOUNTER Pt Name: Kenia Ortiz Birthdate 1990 Date of evaluation: 12/26/2022 ED Provider: Alejandro Kaplan DO CHIEF COMPLAINT Chief Complaint Patient presents with Flank Pain HISTORY OF PRESENT ILLNESS (Location/Symptom, Timing/Onset, Context/Setting, Quality, Duration, Modifying Factors, Severity) Note limiting factors. I wore appropriate PPE for the entirety of this encounter. HPI Kenia Ortiz is a 32 y.o. female who presents to the emergency department with flank pain. The patient reports symptoms started 2 hours ago. Pain is located left flank, described as sharp, severe in intensity. Admits to 1 episode of nonbloody nonbilious emesis. Patient admits to history of kidney stones. Denies urinary symptoms. Admits to prior history of cholecystectomy and tubal ligation. Nursing Notes were reviewed. Limitations to history: Outside historians: REVIEW OF SYSTEMS Review of Systems Genitourinary: Positive for flank pain. 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 ALBUTEROL 108 (90 BASE) MCG/ACT INHALER Inhale 2 puffs every 6 hours as needed. BENAZEPRIL (LOTENSIN) 10 MG TABLET Take 10 mg by mouth in the morning. ESCITALOPRAM (LEXAPRO) 20 MG TABLET Take 1 tablet (20 mg) by mouth daily for 90 doses. MV-MIN-FE FUM-FA-DHA ( 1 PO) Take 200 mg by mouth in the morning. ALLERGIES Influenza vaccine surface adjuvant, inactivated; Influenza a (h5n1) tiss-cult adjuvanted [influenza a (h5n1) vaccine (tissue-cultured)]; and Raspberry FAMILY HISTORY Family History Problem Relation Name Age of Onset No Known Problems Sister No Known Problems Brother No Known Problems Brother No Known Problems Mother Cancer Father unsure of type No Known Problems Brother No Known Problems Sister SOCIAL HISTORY Social History Socioeconomic History Marital status: Single Tobacco Use Smoking status: Former Packs/day: 1.00 Types: Cigarettes Smokeless tobacco: Never Substance and Sexual Activity Alcohol use: Not Currently Drug use: No Social History Narrative Engaged to Jeramie, has 2 dtrs and one son, SMOKER. Unemployed, of note does not have custody of her 2 oldest kids, did not divulge information. Presently her youngest daughter lives with her and her boyfriend. SCREENINGS PHYSICAL EXAM ED Triage Vitals Temp Pulse Resp BP -- -- -- -- SpO2 Temp src Heart Rate Source Patient Position -- -- -- -- BP Location FiO2 (%) -- -- Physical Exam Constitutional: General: She is not in acute distress. HENT: Head: Normocephalic. Eyes: Conjunctiva/sclera: Conjunctivae normal. Pulmonary: Effort: Pulmonary effort is normal. Abdominal: General: Abdomen is flat. Tenderness: There is no abdominal tenderness. There is no right CVA tenderness or left CVA tenderness. Musculoskeletal: General: No deformity. Skin: General: Skin is warm and dry. Psychiatric: Mood and Affect: Mood normal. DIAGNOSTIC RESULTS RADIOLOGY (Per Emergency Physician): Interpretation per the Radiologist below, if available at the time of this note: CT abdomen pelvis wo IV contrast Final Result 1. Mild left renal hydronephrosis due to an obstructing 6 mm proximal ureteral calculus at the UPJ. This appears similar to 02/19/2022. There is stranding in the surrounding fat concerning for infectious/inflammatory process. 2. Medullary sponge disease. 3. Mild bladder wall thickening, correlate for cystitis. 4. Cholecystectomy. Report Dictated on Workstation: [email or web address] Electronically Signed By: Padmaja Amin Electronically Signed Date/Time: 12/26/2022 4:11 AM EDT LABS: Labs Reviewed BASIC METABOLIC PANEL - Abnormal Result Value SODIUM 136 POTASSIUM 3.8 CHLORIDE 104 CARBON DIOXIDE 28 UREA NITROGEN 9 CREATININE 0.65 GLUCOSE 140 (*) CALCIUM 9.0 ANION GAP 3 eGFR >90.0 COMPLETE URINALYSIS - Abnormal Color, Urine Light Yellow Clarity, Urine Turbid (*) pH, Urine 6.5 Leukocytes, Urine 75 (*) Nitrite, Urine Negative Protein, Urine 20 (*) Glucose, Urine Normal Bilirubin, Urine Negative Ketones, Urine Negative Urobilinogen, Urine Normal Blood, Urine >1.0 (*) Volume, Urine 12 mL RBC, Urine 51-100 (*) WBC, Urine 6-10 (*) Squamous Epithelial, Urine 6-10 (*) Bacteria, Urine Few (*) SPECIFIC GRAVITY OF URINE (NUMERIC) 1.018 CBC (HEMOGRAM) - Normal Auto WBC 8.6 RBC 4.39 Hemoglobin 13.9 Hematocrit 40.2 MCV 91.6 MCH 31.7 MCHC 34.6 RDW 12.7 Platelets 299 MPV 9.0 COMPLETE URINALYSIS WITH REFLEX TO CULTURE Narrative: The following orders were created for panel order Urinalysis complete with reflex to Culture. Procedure Abnormality Status --------- ------ Complete Urinalysis[[id number]] Abnormal Final result Please view results for these tests on the individual orders. All other labs were within normal range or not returned as of this dictation. EMERGENCY DEPARTMENT COURSE and DIFFERENTIAL DIAGNOSIS/MDM: Vitals: Vitals: 12/26/22 0217 12/26/22 0222 12/26/22 0345 BP: (!) 158/86 136/78 Pulse: 61 Resp: 18 Temp: 36.6 C (97.9 F) SpO2: 99% Medications ondansetron (Zofran) 4 MG/2ML injection - Pyxis ADS Override Pull (has no administration in time range) ketorolac (Toradol) injection 15 mg (15 mg IntraVENous Given 12/26/22 0236) morphine sulfate (PF) injection 4 mg (4 mg IntraVENous Given 12/26/22 0237) ondansetron (Zofran) injection 4 mg (4 mg IntraVENous Given 12/26/22 0243) sulfamethoxazole-trimethoprim (Bactrim DS) 800-160 MG per tablet 1 tablet (1 tablet Oral Given 12/26/22 0345) ketorolac (Toradol) injection 15 mg (15 mg IntraVENous Given 12/26/22 0345) morphine sulfate (PF) injection 4 mg (4 mg IntraVENous Given 12/26/22 0346) MDM The patient presented with chief complaint of flank pain. The patient appears well, no acute distress, vitals are stable. No CVA tenderness on physical exam.. The differential diagnosis associated with this patient's presentation includes pyelonephritis, ureterolithiasis, diverticulitis. Our workup consisted of ordering/reviewing: CT abdomen and pelvis, CBC, BMP, urinalysis. To aid in management, I performed an independent interpretation of all laboratory tests, EKG, imaging, and other diagnostics ordered. Blood counts, kidney function, electrolytes are negative for acute processes. Urinalysis reveals bacteriuria, leukocytes, and squamous cells. The patient is not complaining of any urinary symptoms. CT scan reveals obstructing 6 mm stone at the UPJ, similar to previous study in February 2022. Given that the patient does have an obstructing stone she will be treated for UTI. The patient was updated on results, questions were answered. Considered admission, however the patient's pain is currently well controlled, no evidence of JEAN-PAUL, no SIRS criteria, and she is able to tolerate p.o. The patient will be discharged with pain control, antibiotics, and close follow-up to urology. The patient was instructed to return back to the emergency department immediately if her symptoms change or worsen. The patient demonstrated general understanding and was agreeable to medical plan. Estrellita Kaplan DO am the electoral officer of record. PROCEDURES: Unless otherwise noted below, none Procedures FINAL IMPRESSION 1. Ureterolithiasis 2. UTI (urinary tract infection), bacterial DISPOSITION Discharge 12/26/2022 04:16:21 AM PATIENT REFERRED TO: [facility]rology [address] [facility] [address] Schedule an appointment as soon as possible for a visit Jonathan Martínez DO [address] [facility] [place] [phone] Schedule an appointment as soon as possible for a visit [facility] ED [address] [place] [address] If symptoms worsen DISCHARGE MEDICATIONS: New Prescriptions HYDROCODONE-ACETAMINOPHEN (NORCO) 5-325 MG TABLET Take 1 tablet by mouth every 6 hours as needed for severe pain (7-10) for up to 3 days. KETOROLAC (TORADOL) 10 MG TABLET Take 1 tablet (10 mg) by mouth every 6 hours as needed for moderate pain (4-6) for up to 5 days. SULFAMETHOXAZOLE-TRIMETHOPRIM (BACTRIM DS) 800-160 MG TABLET Take 1 tablet by mouth 2 times daily for 7 days. (Comment: Please note this report has been produced using speech recognition software and may contain errors related to that system including errors in grammar, punctuation, and spelling, as well as words and phrases that may be inappropriate. If there are any questions or concerns please feel free to contact the dictating provider for clarification.) Alejandro Kaplan DO (electronically signed) Emergency Medicine Provider Alejandro Kaplan DO 12/26/22421 [facility] 11-07-2022 Telephone encounter Note Pt is scheduled 11/28/2022 [facility] 11-07-2022 Miscellaneous Notes Pt is scheduled 11/28/2022 Please assist in scheduling. Refill completed appointment due in November with Adela or myself. Of note she has had 2 no-shows the last 2 visits Rx loaded Medication name: escitalopram (Lexapro) 10 MG tablet Medication dosage: 10 mg (Miligrams Monthly quantity needed: 30 How many day supply requestin days Medication route: oral (PO) Medication administration time(s): Take 1 tablet by mouth daily for 30 doses If taking medication PRN, reason for taking medication: N/A If this is a controlled substance do you receive this or any other controlled medication from any other doctor or facility: No Ordering provider: Dr Jonathan Martínez Date of last office visit: 08-08-2022 Date of next office visit: Date of last refill: (see medication tab): 07-04-2022 Updated/Validated preferred pharmacy: Yes Patient instructed to contact the pharmacy prior to picking up the medication: Yes documented in this encounter [facility] 11-06-2022 Telephone encounter Note Please assist in scheduling. [facility] 11-06-2022 Miscellaneous Notes Please assist in scheduling. Refill completed appointment due in November with Adela or myself. Of note she has had 2 no-shows the last 2 visits Rx loaded Medication name: escitalopram (Lexapro) 10 MG tablet Medication dosage: 10 mg (Miligrams Monthly quantity needed: 30 How many day supply requestin days Medication route: oral (PO) Medication administration time(s): Take 1 tablet by mouth daily for 30 doses If taking medication PRN, reason for taking medication: N/A If this is a controlled substance do you receive this or any other controlled medication from any other doctor or facility: No Ordering provider: Dr Jonathan Martínez Date of last office visit: 08-08-2022 Date of next office visit: Date of last refill: (see medication tab): 07-04-2022 Updated/Validated preferred pharmacy: Yes Patient instructed to contact the pharmacy prior to picking up the medication: Yes documented in this encounter [facility] 11-06-2022 Telephone encounter Note Refill completed appointment due in November with Adela or myself. Of note she has had 2 no-shows the last 2 visits [facility] 11-06-2022 Telephone encounter Note Rx loaded [facility] 11-06-2022 Telephone encounter Note Medication name: escitalopram (Lexapro) 10 MG tablet Medication dosage: 10 mg (Miligrams Monthly quantity needed: 30 How many day supply requestin days Medication route: oral (PO) Medication administration time(s): Take 1 tablet by mouth daily for 30 doses If taking medication PRN, reason for taking medication: N/A If this is a controlled substance do you receive this or any other controlled medication from any other doctor or facility: No Ordering provider: Dr Jonathan Martínez Date of last office visit: 08-08-2022 Date of next office visit: Date of last refill: (see medication tab): 07-04-2022 Updated/Validated preferred pharmacy: Yes Patient instructed to contact the pharmacy prior to picking up the medication: Yes [facility] 04-24-2022 Miscellaneous Notes Pt notified of same, verbalizes understanding. Pt was transferred to schedule appointment. Elizabeth Marie LPN Let patient know acyclovir provided for 3 months. Needs to make appt to establish with a new provider or future refill requests will be denied. The following approved medication requests have been transmitted electronically. Signed Prescriptions Disp Refills acyclovir (ZOVIRAX) 400 mg tablet 60 tablet 2 Sig: take 1 tablet by mouth twice a day SAMUEL: No Authorizing Provider: DAMASO ORTIZ MD Patient phones requesting refills as follows: Pending Prescriptions Disp Refills ACYCLOVIR 400 MG TABLET 60 tablet 10 Sig: take 1 tablet by mouth twice a day SAMUEL: Yes DEMETRIA 03/21/22 NOV no upcoming appt *Pt needs appt to establish care with a new provider. Please review and advise. Noble Rodrigues LPN documented in this encounter [facility] 03-21-2022 Instructions Comfort Pantoja APRN.ANYA - 03/21/2022 2:48 PM EDT 1.) Recommend consult with neurology for further evaluation of seizure episodes. 2.) Be mindful with operating motor vehicles. 3.) Red flag symptoms go to ER. 4.) Stay well hydrated. 5.) Follow up as needed. documented in this encounter [facility] 03-21-2022 History of Present illness Narrative This is a 31 year old female who presents today with: Patient presents with: Follow Up: HOSP HISTORY OF PRESENT ILLNESS: Kenia V Proben is a 31 year old female. Patient presents with: Follow Up: HOSP Here in the office for hospital follow-up. HOSPITAL/ER FOLLOW UP: Reason for visit: Seizure Which facility: [facility] Date of visit: 03/14/2022 Diagnosis: Testing done: Work-up was unremarkable. Toxicology did show positive for benzodiazepine, hCG urine was negative. CT of head shows no evidence of acute intracranial process. Chest x-ray was normal. Treatment given: Patient was referred to neurology instructed to schedule appointment within 24 hours. 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 Patient had a seizure at home and was transported via [facility] to the ER. Was given intranasal Versed 10 mg and Narcan 0.5, patient has a prescription for morphine. 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 Given consult to [facility] neurology in [place]. Current symptoms: Refers that he thinks she had a seizure while sleeping the other night. Unsure what symptoms she was portraying, was told she looked like she was seizing per her significant other. This is the 2nd seizure that she has had in her life time. Refers that in the past that she would would stare off and be unable to respond but could hear everyone. No neuro symptoms. BP slightly elevated today, taking HCTZ 25 mg daily. Needs medication refills. Carpal Tunnel: Taking Gabapentin 100 mg BID and 300 mg at bedtime. Vit D: Taking 50,000 units weekly. PAST MEDICAL HISTORY: PAST MEDICAL HISTORY Diagnosis Date Abnormal Pap smear of cervix 2012 [place] Anemia Anxiety Carpal tunnel syndrome, bilateral 03/22/2021 Chlamydia infection 07/12/2014 Congenital medullary sponge kidney 12/19/2021 Depression Enterocolitis due to Clostridium difficile 05/16/2016 Herpes simplex virus (HSV) infection History of pre-eclampsia in prior , currently Hypertension during Other specified disorder of gallbladder depression PAST SURGICAL HISTORY Procedure Laterality Date COLPOSCOPY CERVIX UPPER/ADJACENT VAGINA Colposcopy LAPROSCOPIC REPAIR UMBILICAL HERNIA 09/20/2016 LAPS SURG CHOLECYSTECTOMY W/CHOLANGIOGRAPHY 07/06/08 LX REPAIR RECURRENT VENTRAL HERNIA 02/18/2018 REPAIR FIRST ABDOMINAL WALL HERNIA 01/06/2019 Hernia repair, incisional SALPINGECTOMY Bilateral 04/17/2018 ALLERGIES Raspberry and Vaccine Adjuvant Emulsion As03 MEDICATIONS Current Outpatient Medications Medication Sig hydroCHLOROthiazide (HYDRODIURIL, ESIDRIX) 25 mg tablet take 1 tablet by mouth once daily cholecalciferol, Vitamin D3, (VITAMIN D3) 1,250 mcg (50,000 unit) cap capsule Take 1 capsule by mouth one time a week. escitalopram oxalate (LEXAPRO) 20 mg tablet take 1 tablet by mouth once daily buPROPion SR (ZYBAN SR; WELLBUTRIN SR) 150 mg 12 hr tablet take 1 tablet twice a day for SMOKING CESSATION gabapentin (NEURONTIN) 100 mg capsule Take 1 capsule by mouth twice daily for 60 days. gabapentin (NEURONTIN) 300 mg capsule Take 1 capsule by mouth daily at bedtime for 60 days. albuterol HFA (PROVENTIL HFA, VENTOLIN HFA) 90 mcg/actuation inhaler Inhale 2 Puffs as instructed every 6 hours as needed for wheezing/shortness of breath. acyclovir (ZOVIRAX) 400 mg tablet Take 1 tablet by mouth twice daily. benzonatate (TESSALON PERLES) 100 mg capsule Take 2 capsules by mouth three times daily as needed for Cough. Miscellaneous Medical Supply Left thumb splint-disp 1 Right thumb splint--disp 1 use as needed to rest the thumbs Dx thumb strain from overuse (Patient not taking: Reported on 03/22/2021 ) naproxen (NAPROSYN) 500 mg tablet Take 1 tablet by mouth twice daily as needed. Take with food. (Patient not taking: Reported on 03/22/2021 ) Blood Pressure Monitor kit Take blood pressure daily. acetaminophen (TYLENOL) 500 mg tablet Take 2 tablets by mouth every 8 hours as needed. (Patient not taking: Reported on 03/22/2021 ) No current facility-administered medications for this visit. FAMILY HISTORY Problem Relation Age of Onset Arthritis Mother Osteoarthritis Cancer Father Hypertension Maternal Grandmother Stroke Maternal Grandmother Prostate Cancer Maternal Grandfather Arthritis Maternal Grandfather Breast Cancer Paternal Grandmother Heart Paternal Grandmother Hypertension Paternal Grandmother Social History Tobacco Use Smoking status: Current Every Day Smoker Packs/day: 2.00 Years: 2.00 Pack years: 4.00 Last attempt to quit: 11/28/2016 Years since quittin.3 Smokeless tobacco: Never Used Substance Use Topics Alcohol use: No Drug use: Yes Types: Marijuana Comment: Has used marijuana in past REVIEW OF SYSTEMS GENERAL: No weight loss, malaise or fevers/chills HEENT: Negative for frequent or significant headaches, No changes in hearing or vision. NECK: Negative for lumps, goiter, pain and significant neck swelling RESPIRATORY: Negative for cough, hemoptysis, wheezing, dyspnea or shortness of breath CARDIOVASCULAR: Negative for chest pain, leg swelling, orthopnea, or palpitations GI: No nausea, vomiting, or diarrhea/constipation. No hematochezia/melena. No heartburn or reflux symptoms. : No history of dysuria, frequency or incontinence MUSCULOSKELETAL: Negative for joint pain or swelling. SKIN: Negative for lesions, rash, and itching ENDOCRINE: Negative for cold or heat intolerance, polyuria, polydipsia and goiter NEURO: + Seizure MOOD: Negative for depression, anxiety, or suicidal ideation. EXAM: BP 130/100 Pulse 67 Wt 105.2 kg (232 lb) LMP 03/15/2022 (Exact Date) SpO2 96% BMI 38.85 kg/m PHYSICAL EXAM: General Appearance: Well appearing, alert, in no acute distress, well-hydrated, well nourished.. Skin: Skin color, texture, turgor normal, no suspicious rashes or lesions. Head: Normocephalic, no masses, lesions, tenderness or abnormalities. Eyes: Anicteric sclera. Pupils are equally round and reactive to light. Extraocular movements are intact. . Lungs: Lungs clear to auscultation. No wheezing, rhonchi, rales.. Heart: RRR without murmur, gallop, or rubs. No ectopy. Extremities: No deformities, edema, skin discoloration, clubbing or cyanosis. Good capillary refill. . Peripheral Pulses: Normal, Capillary refill <2secs, strong peripheral pulses, Pulses palpable. Neurologic: Gait normal. Reflexes normal and symmetric. Sensation grossly intact., Negative findings: speech normal, mental status intact, cranial nerves 2-12 intact, muscle tone normal, muscle strength normal, reflexes normal and symmetric. ASSESSMENT/PLAN: 1. Hospital discharge follow-up - ICD9: V67.59, ICD10: Z09 (primary diagnosis) - Doing well since hospital discharge, but still having ongoing concerns for seizure activity. 2. Seizures (HCC) - ICD9: 780.39, ICD10: R56.9 - Recommend consult with neurology for further evaluation. - CONSULT TO NEUROLOGY 3. Vitamin D deficiency - ICD9: 268.9, ICD10: E55.9 - Refills provided. - CHOLECALCIFEROL (VITAMIN D3) 1,250 MCG (50,000 UNIT) CAPSULE 4. Carpal tunnel syndrome, bilateral - ICD9: 354.0, ICD10: G56.03 - Refills provided. - GABAPENTIN 300 MG CAPSULE - GABAPENTIN 100 MG CAPSULE Follow-up as needed or sooner if symptoms get worse or do not improve. Discussed treatment plan and patient voices understanding. Patient's questions answered appropriately. Medications and potential side effects were discussed and patient voices understanding. Comfort Pantoja APRN.CNP This note was partially generated using Rafter voice recognition system. Note was reviewed for accuracy. There may be minor misspellings or grammar miscues with Rafter voice recognition. documented in this encounter [facility] 03-20-2022 Miscellaneous Notes Scheduled with AT 03/21/22 @ 220 PM. Vanessa Mcmillan MA Team - Patient recently had a seizure and was admitted to the hospital. Needs a Hosp follow up appt. Please schedule with one of our providers at [facility]. Jojo Cordova APRN.BINA JOYNER documented in this encounter [facility] 03-14-2022 Hospital Discharge instructions Jane Raymundo DO - 03/14/[address] or operate heavy machinery until you follow-up with neurology he has been confirmed not to have a seizure disorder. The following attachments cannot be sent through Care Everywhere.Seizure (Serbian)documented in this encounter [facility] Work Phone: 12-22-2021 Miscellaneous Notes Patient notified and verbalized understanding Vanessa Murphy Cma Team - Please inform the patient. Their lab results are negative/unremarkable except for a low vitamin D level. Recommend taking an Vitamin D3 Supplement. Potassium is mildly low. Consume foods high in potassium. The following approved medication requests have been transmitted electronically. Signed Prescriptions Disp Refills cholecalciferol, Vitamin D3, (VITAMIN D3) 1,250 mcg (50,000 unit) cap capsule 12 capsule 0 Sig: Take 1 capsule by mouth one time a week. Authorizing Provider: JOJO CORDOVA She should follow-up with urology for her kidney stone. Food Sources of Potassium Many of the foods that you already eat contain potassium. The foods listed below are high in potassium. If you need to boost the amount of potassium in your diet, make healthy food choices by picking items below to add to your menu. Many fresh fruits and vegetables are rich in potassium: Bananas, oranges, cantaloupe, honeydew, apricots, grapefruit (some dried fruits, such as prunes, raisins, and dates, are also high in potassium) Cooked spinach Cooked broccoli Potatoes Sweet potatoes Mushrooms Peas Cucumbers Zucchini Pumpkins Leafy greens Juice from potassium-rich fruit is also a good choice: [place] juice Tomato juice Prune juice Apricot juice Grapefruit juice Jojo Cordova APRN.ASSIGNMENT CLERK, DNP Component Latest Ref Rng & Units 12/19/2021 Protein, Total 6.3 - 8.0 g/dL 7.1 Albumin 3.9 - 4.9 g/dL 4.2 Calcium 8.5 - 10.2 mg/dL 9.8 Bilirubin, Total 0.2 - 1.3 mg/dL 0.2 Alkaline Phosphatase 34 - 123 U/L 64 AST 13 - 35 U/L 35 ALT 7 - 38 U/L 35 Glucose 74 - 99 mg/dL 85 BUN 7 - 21 mg/dL 9 Creatinine 0.58 - 0.96 mg/dL 0.80 Sodium 136 - 144 mmol/L 136 Potassium 3.7 - 5.1 mmol/L 3.9 Chloride 97 - 105 mmol/L 100 CO2 22 - 30 mmol/L 25 Anion Gap 9 - 18 mmol/L 11 eGFR >=60 mL/min/1.73m 101 Uric Acid 2.5 - 6.6 mg/dL 6.6 Vitamin D 25 Hydroxy 31.0 - 80.0 ng/mL 15.4 (L) Hep C Antibody IA Negative Negative Culture 10,000 -<50,000 CFU/ml Normal urogenital roam documented in this encounter [facility] 12-19-2021 History of Present illness Narrative Radiology Service Progress Note PATIENT NAME: Kenia Ortiz DATE OF SERVICE: December 19, 2021 TIME: 8:11 AM PATIENT IDENTITY VERIFICATION COMPLETED USING TWO (2) IDENTIFIERS: Name and Date of confirmed by patient verbally. FALL SCREENING: Has the patient had 2 falls in the last year or 1 fall with injury or currently using an Ambulatory Assistive Device (Walker, Cane, Wheelchair, Crutches, etc.)? No PATIENT GENDER DATA: Female. status: : No status: NO. PATIENT RELEVANT IMPLANT DATA REVIEWED: Not Applicable RADIOLOGY DEPARTMENT: General X-ray: Exam(s) Completed: Upper Extremity X-Ray(s): Elbow, left PERIPHERAL IV DATA: Not applicable SIGNED BY: RT Roverto(R) December 19, 2021 8:11 AM documented in this encounter [facility] 12-19-2021 Instructions Jojo Cordova APRN.BINA JOYNER - 12/19/2021 7:49 AM EDT Follow up with Urology follow up with Gen Surgery - Dr. Posadas Labs and xray today Schedule Renal US Strain urine Return to the clinic or seek care at [facility] for any worsening signs or symptoms: such as fevers, chills, worsening pain, nausea. For severe symptoms seek care at the closest ER. Plan of care, medicaiton side effects and management reviewed with patient. Diet Recommendations for Kidney Stones General Recommendations Drink plenty of fluid: 2-3 quarts/day This includes any type of fluid such as water, coffee and lemonade which have been shown to have a beneficial effect with the exception of grapefruit juice and soda. This will help produce less concentrated urine and ensure a good urine volume of at least 2.5L/day Limit foods with high oxalate content Spinach, many berries, chocolate, wheat bran, nuts, beets, tea and rhubarb should be eliminated from your diet intake Eat enough dietary calcium Three servings of dairy per day will help lower the risk of calcium stone formation. Eat with meals. Avoid extra calcium supplements Calcium supplements should be individualized by your physician and registered kidney dietitian Eat a moderate amount of protein High protein intakes will cause the kidneys to excrete more calcium therefore this may cause more stones to form in the kidney Avoid high salt intake High sodium intake increases calcium in the urine which increases the chances of developing stones Low salt diet is also important to control blood pressure. Avoid high doses of vitamin C supplements It is recommend to take 60mg/day of vitamin C based on the [place] Dietary Reference Intake Excess amounts of 1000mg/day or more may produce more oxalate in the body Healthy Habits: Recommend regular physical activity, nutrition and healthy eating habits. Consume a variety of foods every day focusing on fruits, vegetables and lean meats). Eat foods low in fat, saturated fat and cholesterol. Eat a limited amount of salt and sodium. Drink adequate amounts of water and limit sugary drinks. Exercise portion control in meal selection. Establish a mindset of a wellness approach to health. Thank you for allowing me to provide your care today. I look forward to seeing you again and maintaining your health. Jojo Cordova APRN.BINA JOYNER documented in this encounter [facility] 12-19-2021 History of Present illness Narrative Chief Complaint Patient presents with: ED Follow-up: kidney stone- 12/01/21 SARA Ortiz is a 31 year old female who presents here today for a recent ER visit at [facility] for Kidney Stone. This is an established patient of Dr. Jojo Cordova APRN.BINA JOYNER. This is a new patient to me. Denies any recent hospitalizations. BRIEF ER COURSE: 31 y.o. female who presented to the [facility] emergency department with left-sided back pain radiating to left posterior flank pain left flank pain left anterior abdominal pain. Pain started x 1 day. No vomiting. No difficulty urinating, no fever. Pain started suddenly, it is 10 out of 10, it is constant. No anti-inflammatory use recently. She did have 1 alcoholic drink recently. Past surgical history: Ventral hernia repair x2. She had recurrence afterwards. Has a surgeon at [facility]. Was told that she needs to lose weight before further repair. This hernia has been present for approximately 12 months. No recent change in size or pain at the site. Case was discussed in entireity with Dr. Leon Feliz from general surgery the statistical consultant and the recommendation was patient is okay to be discharged home patient can follow-up with him in the office. PATIENT REFERRED TO: Leon Feliz MD [address] [place] [address] [address] [place] [address] In 3 days CONCERNS: Continued to have mild right and left sided flank pain. 5/10. Pain comes and goes. Occasional burning with urination. No fevers or chills. Chronic loose stools. No n/v. Was referred to GS and Urology. Did not make an appt or follow up with either specialty. Left Elbow pain: C/o of left elbow pain for several months. Denies trauma or injury. No swelling or redness. Pain shoots from elbow down into FA. Was taking Toradol for kidney stone with mild relief of symptoms. NEW MEDICATIONS: DIPHENHYDRAMINE-APAP (PERCOGESIC) 12.5-325 MG TABS Take 1 tablet by mouth 4 times daily as needed (pain) KETOROLAC (TORADOL) 10 MG TABLET Take 1 tablet by mouth every 6 hours as needed for Pain TAMSULOSIN (FLOMAX) 0.4 MG CAPSULE Take 1 capsule by mouth daily Past medical history, appointments, medications, allergies reviewed 12/19/2021 Previous Medical History PAST MEDICAL HISTORY Diagnosis Date Abnormal Pap smear of cervix 2012 [place] Anemia Anxiety Carpal tunnel syndrome, bilateral 03/22/2021 Chlamydia infection 07/12/2014 Depression Enterocolitis due to Clostridium difficile 05/16/2016 Herpes simplex virus (HSV) infection History of pre-eclampsia in prior , currently Hypertension during Other specified disorder of gallbladder depression Previous Surgical History PAST SURGICAL HISTORY Procedure Laterality Date COLPOSCOPY (VAGINOSCOPY) Colposcopy LAP CHOLECYSTECT/CHOLANGIOGRAPHY 07/06/08 LAPROSCOPIC REPAIR UMBILICAL HERNIA 09/20/2016 LX REPAIR RECURRENT VENTRAL HERNIA 02/18/2018 REPAIR INCISIONAL HERNIA,REDUCIBLE 01/06/2019 Hernia repair, incisional SALPINGECTOMY Bilateral 04/17/2018 Family History FAMILY HISTORY Problem Relation Age of Onset Arthritis Mother Osteoarthritis Cancer Father Hypertension Maternal Grandmother Stroke Maternal Grandmother Prostate Cancer Maternal Grandfather Arthritis Maternal Grandfather Breast Cancer Paternal Grandmother Heart Paternal Grandmother Hypertension Paternal Grandmother Patient Allergies ALLERGIES Allergen Reactions Raspberry Hives Vaccine Adjuvant Em* Anaphylaxis Current Medications Current Outpatient Medications on File Prior to Visit Medication Sig escitalopram oxalate (LEXAPRO) 20 mg tablet take 1 tablet by mouth once daily buPROPion SR (ZYBAN SR; WELLBUTRIN SR) 150 mg 12 hr tablet take 1 tablet twice a day for SMOKING CESSATION gabapentin (NEURONTIN) 100 mg capsule Take 1 capsule by mouth twice daily for 60 days. gabapentin (NEURONTIN) 300 mg capsule Take 1 capsule by mouth daily at bedtime for 60 days. albuterol HFA (PROVENTIL HFA, VENTOLIN HFA) 90 mcg/actuation inhaler Inhale 2 Puffs as instructed every 6 hours as needed for wheezing/shortness of breath. acyclovir (ZOVIRAX) 400 mg tablet Take 1 tablet by mouth twice daily. hydroCHLOROthiazide (HYDRODIURIL, ESIDRIX) 25 mg tablet Take 1 tablet by mouth once daily. benzonatate (TESSALON PERLES) 100 mg capsule Take 2 capsules by mouth three times daily as needed for Cough. Miscellaneous Medical Supply Left thumb splint-disp 1 Right thumb splint--disp 1 use as needed to rest the thumbs Dx thumb strain from overuse (Patient not taking: Reported on 03/22/2021 ) naproxen (NAPROSYN) 500 mg tablet Take 1 tablet by mouth twice daily as needed. Take with food. (Patient not taking: Reported on 03/22/2021 ) Blood Pressure Monitor kit Take blood pressure daily. acetaminophen (TYLENOL) 500 mg tablet Take 2 tablets by mouth every 8 hours as needed. (Patient not taking: Reported on 03/22/2021 ) No current facility-administered medications on file prior to visit. Social History Social History Tobacco Use Smoking status: Current Every Day Smoker Packs/day: 2.00 Years: 2.00 Pack years: 4.00 Last attempt to quit: 11/28/2016 Years since quittin.0 Smokeless tobacco: Never Used Substance Use Topics Alcohol use: No Drug use: Yes Types: Marijuana Comment: Has used marijuana in past Review of Symptoms GENERAL: No weight loss, malaise or fevers. No fatigue or night sweats. HEENT: Negative for frequent or significant headaches No nasal discharge or nose bleeds No sore throat, difficulty swallowing, mouth lesions or hoarseness No earaches, ear popping or ear discharge NECK: Negative for lumps, pain, neck swelling, or swollen nodes RESPIRATORY: Negative for cough, wheezing, dyspnea or shortness of breath CARDIOVASCULAR: Negative for chest pain or leg swelling GI: No nausea, vomiting, or diarrhea. No blood in stool : No urinary symptoms. No burning, urgency or frequency. MUSCULOSKELETAL: Negative for generalized joint pain or muscle aches SKIN: Negative for lesions, rash, and itching EXAM: LMP 02/20/2021 (Approximate) General Appearance: Well appearing, alert, in no acute distress, well-hydrated, well nourished. Skin: Skin color, texture, turgor normal Head: Normocephalic, no masses, lesions Eyes: Anicteric sclera. No redness or drainage. Ears: External ears normal, TM's clear bilaterally, adequate light reflex Nose/Sinuses: Nares normal, septum midline, mucosa normal, no drainage or sinus tenderness. Oropharynx: Lips, mucosa, and tongue normal, teeth and gums normal, oropharynx normal. Neck: Supple, no mass or lumps. Lymph Nodes: No cervical, supraclavicular, pre/post-auricular, or submandibular lymphadenopathy Lungs: Lungs clear to auscultation. No wheezing, rhonchi, rales. Heart: RRR without murmur, gallop, or rubs. No ectopy. GI: Soft and round. Nontender in epigastric region. No upper or lower quadrant abdominal tenderness. No rebound tenderness. No CVA tenderness. Negative Ulloa sign . No organomegaly. Extremities: No deformities, edema, skin discoloration. Pulses: 2+ at radial. Psych: Attitude - cooperative, easily engaged in conversation Appearance - normal, hygiene and grooming appropriate Affect - euthymic, normal mood Mental status: Alert, attentive. Speech is clear and fluent with good repetition, comprehension Coordination: There are no abnormal or extraneous movements. Gait/Stance: Posture is normal. Gait is steady with normal steps Health Maintenance List HEPATITIS C SCREENING Never done ONE PNEUMOVAX PRIOR TO AGE 65 Never done COVID-19 VACCINE(3 - Booster for Moderna series) due on 09/21/2021 PAP TESTING due on 06/18/2022 HPV TESTING due on 06/18/2022 INFLUENZA(Season Ended) due on 05/17/2022 ANNUAL PCP TEAM CHRONIC DISEASE VISIT due on 07/18/2022 BP CONTROLLED (<130/80) due on 07/18/2022 DTAP,TDAP,TD(2 - Td or Tdap) due on 12/09/2024 HIV SCREENING Completed MENINGOCOCCAL CONJUGATE Aged Out Data reviewed Last 5 Encounter BP Readings: Date: BP: 07/18/2021 132/78 04/19/2021 130/80 03/22/2021 138/98 10/31/2020 130/82 05/16/2020 99/85 BMI Readings from Last 5 Encounters: 07/18/21 : 39.35 kg/m 04/19/21 : 39.52 kg/m 04/04/21 : 39.85 kg/m 03/22/21 : 39.61 kg/m 10/31/20 : 39.54 kg/m Last 5 Encounter Wt Readings: Date: Wt: 07/18/2021 106.6 kg (235 lb) 04/19/2021 107 kg (236 lb) 04/04/2021 108 kg (238 lb) 03/22/2021 108 kg (238 lb) 10/31/2020 107.8 kg (237 lb 9.6 oz) Medication and allergy list reviewed, reconciled and updated 12/19/2021 ER DIAGNOSTIC RESULTS RADIOLOGY CT Abdomen Pelvis Wo Contrast Result Date: 12/01/2021 Patient Name: KENIA ORTIZ Computed Tomography ACCESSION EXAM DATE/TIME PROCEDURE ORDERING PROVIDER [id number] 12/01/2021 22:[address] Abdomen/Pelvis (No MD BRADLEY, LINDEN PO, No IV) CPT code 49066 Reason For Exam (CT Abdomen/Pelvis (No PO, No IV)) left flank pain with po contrast Report CT ABDOMEN AND PELVIS WITHOUT CONTRAST CLINICAL INDICATION: left flank pain with po contrast TECHNIQUE: CT scan of the abdomen and pelvis without IV/oral contrast. Multiplanar reformations. Oral contrast utilized. COMPARISON: None FINDINGS: Solid organ evaluation limited from lack of IV contrast. Lung bases are clear. No free intraperitoneal gas seen. Liver shows no significant abnormality. Normal-appearing biliary tree status-post cholecystectomy. Spleen shows no significant abnormality. Adrenal glands show no significant abnormality. Pancreas shows no significant abnormality. There are innumerable medullary renal calcifications bilaterally, likely related to medullary sponge kidney. In addition, there is a calcification at the left UPJ measuring 5.2 x 4.1 mm in axial cross-section, and 7.3 mm in craniocaudal dimension. Mild left hydronephrosis. Abdominal aorta is nonaneurysmal. The ovaries appear grossly unremarkable. No bowel obstruction. There are two supraumbilical fat-containing midline abdominal wall hernias. The more cephalad is quite small, the more caudad measures 4.6 x 3.2 cm in axial cross-section, with a defect in the abdominal wall musculature about 17 mm. Fat which is herniated, and fat just deep to the herniated fat appears inflamed. This may be incarcerated. Appendix not seen with certainty. IMPRESSION: 1. Multiple bilateral renal calculi compatible with medullary sponge kidney. Left UPJ calculus with mild left hydronephrosis. 2. Two midline supraumbilical abdominal wall fat-containing hernias, the more caudal of which the fat appears inflamed, could be incarcerated. Computed Tomography Report Report Dictated on --- Final --- Dictating Physician: MD LORA JOHN R Signed Date and Time: 12/01/2021 10:29 pm Signed by: MD LORA JOHN R Transcribed Date and Time: 12/01/2021 10:30 LABS: Results for orders placed or performed during the hospital encounter of 12/01/21 Urinalysis Result Value Ref Range Glucose, Ur Normal Normal (<70) mg/dL Total Protein, Urine 20 (A) Negative mg/dL Bilirubin Urine Negative Negative mg/dL Urobilinogen, Urine Normal Normal (0-1) mg/dL pH, Urine 7.0 5.0 - 8.0 NA Specific Mccarley, Urine 1.015 1.005 - 1.030 NA Occult Blood,Urine >1.0 (A) Negative mg/dL Ketones, Urine Negative Negative mg/dL Nitrite, Urine Negative Negative NA LEUKOCYTES, UA Negative Negative Jonel/uL Appearance Turbid (A) Clear NA Color, Urine LIGHT ORANGE (A) Lt. Yellow NA Volume 12 ml NA RBC, UA >100 (A) 0 - 2 /[HPF] WBC, UA 0-2 0 - 5 /[HPF] Squam Epithel, UA 3-5 3 - 5 /[HPF] Bacteria, UA Few (1-5) (A) Negative /[HPF] HGC Urine Qual Preg Result Value Ref Range HCG Urine Negative Negative NA ASSESSMENT/PLAN: 1. Congenital medullary sponge kidney - ICD9: 753.17, ICD10: Q61.5 (primary diagnosis) MSK can predispose her to renal calculi. Reviewed this with patient. Answered all questions. Recommend follow up with Urology. I reviewed all diagnostics that were completed in the ER with the patient. Answered all questions. She failed to schedule a general surgery follow-up appointment or urology follow-up appointment that the emergency room had arranged for her. Labs today Schedule Renal US - US KIDNEY/BLADDER - CONSULT TO UROLOGY - URINALYSIS, WITH MICROSCOPIC - URINE CULTURE 2. Kidney stone - ICD9: 592.0, ICD10: N20.0 MDM -clinically stable. Moderate pain improvement. Denies seeing blood, fever or chills. No worsening pain. Still mild intermittent flank pain bilaterally. Unsure if she is passed a stone. Was not straining urine. States ER did not give her a strainer. Unclear on the amount of fluids she has been drinking daily. Reviewed stones can harbor bacteria and cause a urinary tract infection. MSK can predispose her to renal clacli. Reviewed this with patient. Answered all questions. Recommend follow up with Urology. Labs today Schedule Renal US Strain urine Return to the clinic or seek care at [facility] for any worsening signs or symptoms: such as fevers, chills, worsening pain, nausea. For severe symptoms seek care at the closest ER. Plan of care, medicaiton side effects and management reviewed with patient. Diet Recommendations for Kidney Stones General Recommendations Drink plenty of fluid: 2-3 quarts/day This includes any type of fluid such as water, coffee and lemonade which have been shown to have a beneficial effect with the exception of grapefruit juice and soda. This will help produce less concentrated urine and ensure a good urine volume of at least 2.5L/day Limit foods with high oxalate content Spinach, many berries, chocolate, wheat bran, nuts, beets, tea and rhubarb should be eliminated from your diet intake Eat enough dietary calcium Three servings of dairy per day will help lower the risk of calcium stone formation. Eat with meals. Avoid extra calcium supplements Calcium supplements should be individualized by your physician and registered kidney dietitian Eat a moderate amount of protein High protein intakes will cause the kidneys to excrete more calcium therefore this may cause more stones to form in the kidney Avoid high salt intake High sodium intake increases calcium in the urine which increases the chances of developing stones Low salt diet is also important to control blood pressure. Avoid high doses of vitamin C supplements It is recommend to take 60mg/day of vitamin C based on the [place] Dietary Reference Intake Excess amounts of 1000mg/day or more may produce more oxalate in the body - US KIDNEY/BLADDER - CONSULT TO UROLOGY - COMP METABOLIC PANEL - URIC ACID BLOOD - VITAMIN D 25 HYDROXY - URINALYSIS, WITH MICROSCOPIC - URINE CULTURE - CALCULI ANALYSIS 3. Abdominal wall hernia - ICD9: 553.20, ICD10: K43.9 Chronic and not well controlled. Surgery x2 previously. Recommend follow-up with general surgery and Dr. Posadas - CONSULT TO GENERAL SURGERY 4. Left elbow pain - ICD9: 719.42, ICD10: M25.522 MDM: Unclear on mechanism of injury. Intermittent over the past 1 to 2 months.. Atraumatic. Initial evaluation with x-ray today. Follow-up in 2 to 4 weeks for reevaluation if symptoms contnue. Recommend, NSAID, rest and ice. - XR ELBOW GENERAL 2V AP/LAT LEFT 5. Special screening examination for viral disease - ICD9: V73.99, ICD10: Z11.59 - HEP C AB IA W/CONF SCRN 6. Obesity, Class II, BMI 35-39.9 - ICD9: 278.00, ICD10: E66.9 Chronic and stable weight Recommend regular physical activity, nutrition and healthy eating habits. Consume a variety of foods every day focusing on fruits, vegetables and lean meats). Eat foods low in fat, saturated fat and cholesterol. Eat a limited amount of salt and sodium. Drink adequate amounts of water and limit sugary drinks. Exercise portion control in meal selection. Establish a mindset of a wellness approach to health. Jojo Cordova APRN.BINA JOYNER This note was completed with NodePrime dictation software. Note was reviewed for accuracy. There may be minor misspellings or grammar miscues with [employer] Dictation. I spent a total of 45 minutes on the date of the service which included preparing to see the patient, [id number] patient care, completing clinical documentation, performing a medically appropriate examination, counseling and educating the patient/family/caregiver and ordering medications, tests, or procedures. [place] [id number] documented in this encounter [facility] 07-18-2021 History of Present illness Narrative Radiology Service Progress Note PATIENT NAME: Kenia Ortiz DATE OF SERVICE: July 18, 2021 TIME: 11:45 AM PATIENT IDENTITY VERIFICATION COMPLETED USING TWO (2) IDENTIFIERS: Name and Date of confirmed by patient verbally. FALL SCREENING: Has the patient had 2 falls in the last year or 1 fall with injury or currently using an Ambulatory Assistive Device (Walker, Cane, Wheelchair, Crutches, etc.)? No PATIENT GENDER DATA: Female. status: : No status: NO. PATIENT RELEVANT IMPLANT DATA REVIEWED: Yes RADIOLOGY DEPARTMENT: General X-ray: Exam(s) Completed: Upper Extremity X-Ray(s): Hand, bilateral PERIPHERAL IV DATA: Not applicable SIGNED BY: RT Celina(R) July 18, 2021 11:45 AM documented in this encounter [facility] 03-22-2021 History of Present illness Narrative Radiology Service Progress Note PATIENT NAME: Kenia CASTILLON: [id number] DATE OF SERVICE: March 22, 2021 TIME: 12:28 PM PATIENT IDENTITY VERIFICATION COMPLETED USING TWO (2) IDENTIFIERS: Name and Date of confirmed by patient verbally. FALL SCREENING: Has the patient had 2 falls in the last year or 1 fall with injury or currently using an Ambulatory Assistive Device (Walker, Cane, Wheelchair, Crutches, etc.)? No PATIENT GENDER DATA: Female. status: : No status: NO. PATIENT RELEVANT IMPLANT DATA REVIEWED: Yes RADIOLOGY DEPARTMENT: General X-ray: Exam(s) Completed: Chest X-Ray PERIPHERAL IV DATA: Not applicable SIGNED BY: RT Celina(R) March 22, 2021 12:28 PM documented in this encounter [facility] 10-22-2017 History of Past i llness Narrative Problem Noted Date Resolved Date Unstable lie of fetus 10/22/2017 01/06/2018 Overview: 10/24/17: Baby Transverse Lie on exam today. Hillary Layne CNM Hx of maternal laceration, 3rd degree, currently 06/10/2017 01/06/2018 Overview: 06/10/2017Patient has a history of a 3rd degree laceration with her first delivery. She had a 1st degree laceration with her last delivery. TKRN Recurrent major depressive disorder, in partial remission 05/10/2016 01/06/2018 Scabies infestation 11/15/2014 05/10/2016 Chlamydia infection 07/12/2014 05/10/2016 Overview: 11/12/14 Negative GC/chlamydia. Moni Gilliland, ASSIGNMENT CLERK 07/12/14: Positive chlamydia. Will treat. Rescreen later in . Leticia Paez MD October 11, 2014 Still positive, retreat, rescreen 3rd trimester. Leticia Paez MD Rubella non-immune status, antepartum 07/12/2014 05/10/2016 Supervision of other high-risk 014 05/10/2016 Overview: December 09, 2014 first had 3rd degree laceration, counseled, trial of labor. Leticia Paez MD Rubella non-immune status 01/07/20132013 Susceptible to varicella (non-immune), currently 01/07/2013 05/10/2016 Overview: 07/12/14: subsequent and still nonimmune. Moni Darshana, ASSIGNMENT CLERK Avoidance and PP vaccination with care elsewhere, antepart 01/05/2013 01/06/2018 Overview: 06/10/2017Patient is transferring care from [place], [place]. She states she was last seen in April there. She had labwork and an untrasound done. Patient signed a release of records form to obtain her medical records from [facility] in [place]. TKRN Nausea and vomiting in 01/05/2013 07/09/2014 Overview: 01/05/2013 Patient states that she vomits 1-2 times a day. Discussed nausea and vomiting in . Advised patient to call/come in if she is unable to keep any food or fluids down in a 24-hour period. A prescription for Phenergan given to patient by Dr. Grace. History of abnormal Pap smear 01/05/2013 Overview: 01/05/2013Patient states she had an abnormal Pap smear in [place] October 2012. She is unsure of the facility or the doctor where she had it done. She states she will get address information from her father in [place], so she can sign a release form for her Pap results. Family history of genetic disease 01/05/2013 07/09/2014 Overview: 01/05/2013The father of the baby's aunt has muscular dystrophy. Patient requested diagnostic testing 01/05/2013 07/09/2014 Overview: 01/05/2013 Patient desires early screening in with sequential testing. Emergency contraceptive counseling 01/02/2010 01/02/2010 documented as of this encounter (statuses as of 12/19/2021) [place] [id number] History of Past illness Narrative* Problem Noted Date Resolved Date Unstable lie of fetus 10/22/2017 01/06/2018 Overview: 10/24/17: Baby Transverse Lie on exam today. Hillary Layne CNM Hx of maternal laceration, 3rd degree, currently 06/10/2017 01/06/2018 Overview: 06/10/2017Patient has a history of a 3rd degree laceration with her first delivery. She had a 1st degree laceration with her last delivery. TKRN Recurrent major depressive disorder, in partial remission 05/10/2016 01/06/2018 Scabies infestation 11/15/2014 05/10/2016 Chlamydia infection 07/12/2014 05/10/2016 Overview: 11/12/14 Negative GC/chlamydia. Moni Gilliland CNP 07/12/14: Positive chlamydia. Will treat. Rescreen later in . Leticia Paez MD October 11, 2014 Still positive, retreat, rescreen 3rd trimester. Leticia Paez MD Rubella non-immune status, antepartum 07/12/2014 05/10/2016 Supervision of other high-risk 014 05/10/2016 Overview: December 09, 2014 first had 3rd degree laceration, counseled, trial of labor. Leticia Paez MD Rubella non-immune status 01/07/20132013 Susceptible to varicella (non-immune), currently 01/07/2013 05/10/2016 Overview: 07/12/14: subsequent and still nonimmune. Moni Gilliland CNP Avoidance and PP vaccination with care elsewhere, antepart 01/05/2013 01/06/2018 Overview: 06/10/2017Patient is transferring care from [place], [place]. She states she was last seen in April there. She had labwork and an untrasound done. Patient signed a release of records form to obtain her medical records from [facility] in [place]. TKRN Nausea and vomiting in 01/05/2013 07/09/2014 Overview: 01/05/2013 Patient states that she vomits 1-2 times a day. Discussed nausea and vomiting in . Advised patient to call/come in if she is unable to keep any food or fluids down in a 24-hour period. A prescription for Phenergan given to patient by Dr. Grace. History of abnormal Pap smear 01/05/2013 Overview: 01/05/2013Patient states she had an abnormal Pap smear in [place] October 2012. She is unsure of the facility or the doctor where she had it done. She states she will get address information from her father in [place], so she can sign a release form for her Pap results. Family history of genetic disease 01/05/2013 07/09/2014 Overview: 01/05/2013The father of the baby's aunt has muscular dystrophy. Patient requested diagnostic testing 01/05/2013 07/09/2014 Overview: 01/05/2013 Patient desires early screening in with sequential testing. Emergency contraceptive counseling 01/02/2010 01/02/2010 documented as of this encounter (statuses as of 12/22/2021) [facility] History of Past illness Narrative* Problem Noted Date Resolved Date Unstable lie of fetus 10/22/2017 01/06/2018 Overview: 10/24/17: Baby Transverse Lie on exam today. Hillary Layne CNM Hx of maternal laceration, 3rd degree, currently 06/10/2017 01/06/2018 Overview: 06/10/2017Patient has a history of a 3rd degree laceration with her first delivery. She had a 1st degree laceration with her last delivery. TKRN Recurrent major depressive disorder, in partial remission 05/10/2016 01/06/2018 Scabies infestation 11/15/2014 05/10/2016 Chlamydia infection 07/12/2014 05/10/2016 Overview: 11/12/14 Negative GC/chlamydia. Moni Gilliland CNP 07/12/14: Positive chlamydia. Will treat. Rescreen later in . Leticia Paez MD October 11, 2014 Still positive, retreat, rescreen 3rd trimester. Leticia Paez MD Rubella non-immune status, antepartum 07/12/2014 05/10/2016 Supervision of other high-risk 014 05/10/2016 Overview: December 09, 2014 first had 3rd degree laceration, counseled, trial of labor. Leticia Paez MD Rubella non-immune status 01/07/20132013 Susceptible to varicella (non-immune), currently 01/07/2013 05/10/2016 Overview: 07/12/14: subsequent and still nonimmune. Moni Gilliland CNP Avoidance and PP vaccination with care elsewhere, antepart 01/05/2013 01/06/2018 Overview: 06/10/2017Patient is transferring care from [place], [place]. She states she was last seen in April there. She had labwork and an untrasound done. Patient signed a release of records form to obtain her medical records from [facility] in [place]. TKRN Nausea and vomiting in 01/05/2013 07/09/2014 Overview: 01/05/2013 Patient states that she vomits 1-2 times a day. Discussed nausea and vomiting in . Advised patient to call/come in if she is unable to keep any food or fluids down in a 24-hour period. A prescription for Phenergan given to patient by Dr. Grace. History of abnormal Pap smear 01/05/2013 Overview: 01/05/2013Patient states she had an abnormal Pap smear in [place] October 2012. She is unsure of the facility or the doctor where she had it done. She states she will get address information from her father in [place], so she can sign a release form for her Pap results. Family history of genetic disease 01/05/2013 07/09/2014 Overview: 01/05/2013The father of the baby's aunt has muscular dystrophy. Patient requested diagnostic testing 01/05/2013 07/09/2014 Overview: 01/05/2013 Patient desires early screening in with sequential testing. Emergency contraceptive counseling 01/02/2010 01/02/2010 documented as of this encounter (statuses as of 03/20/2022) [facility] History of Past illness Narrative* Problem Noted Date Resolved Date Unstable lie of fetus 10/22/2017 01/06/2018 Overview: 10/24/17: Baby Transverse Lie on exam today. Hillary Layne CNM Hx of maternal laceration, 3rd degree, currently 06/10/2017 01/06/2018 Overview: 06/10/2017Patient has a history of a 3rd degree laceration with her first delivery. She had a 1st degree laceration with her last delivery. TKRN Recurrent major depressive disorder, in partial remission 05/10/2016 01/06/2018 Scabies infestation 11/15/2014 05/10/2016 Chlamydia infection 07/12/2014 05/10/2016 Overview: 11/12/14 Negative GC/chlamydia. Moni Head Waters, ASSIGNMENT CLERK 07/12/14: Positive chlamydia. Will treat. Rescreen later in . Leticia Paez MD October 11, 2014 Still positive, retreat, rescreen 3rd trimester. Leticia Paez MD Rubella non-immune status, antepartum 07/12/2014 05/10/2016 Supervision of other high-risk 014 05/10/2016 Overview: December 09, 2014 first had 3rd degree laceration, counseled, trial of labor. Leticia Paez MD Rubella non-immune status 01/07/20132013 Susceptible to varicella (non-immune), currently 01/07/2013 05/10/2016 Overview: 07/12/14: subsequent and still nonimmune. Moni Gilliland, ASSIGNMENT CLERK Avoidance and PP vaccination with care elsewhere, antepart 01/05/2013 01/06/2018 Overview: 06/10/2017Patient is transferring care from [place], [place]. She states she was last seen in April. She had labwork and an untrasound done. Patient signed a release of records form to obtain her medical records from [facility] in [place]. TKRN Nausea and vomiting in 01/05/2013 07/09/2014 Overview: 01/05/2013 Patient states that she vomits 1-2 times a day. Discussed nausea and vomiting in . Advised patient to call/come in if she is unable to keep any food or fluids down in a 24-hour period. A prescription for Phenergan given to patient by Dr. Grace. History of abnormal Pap smear 01/05/2013 Overview: 01/05/2013Patient states she had an abnormal Pap smear in [place] October 2012. She is unsure of the facility or the doctor where she had it done. She states she will get address information from her father in [place], so she can sign a release form for her Pap results. Family history of genetic disease 01/05/2013 07/09/2014 Overview: 01/05/2013The father of the baby's aunt has muscular dystrophy. Patient requested diagnostic testing 01/05/2013 07/09/2014 Overview: 01/05/2013 Patient desires early screening in with sequential testing. Emergency contraceptive counseling 01/02/2010 01/02/2010 documented as of this encounter (statuses as of 03/21/2022) [facility] History of Past illness Narrative* Problem Noted Date Resolved Date Unstable lie of fetus 10/22/2017 01/06/2018 Overview: 10/24/17: Baby Transverse Lie on exam today. Hillary Roverto, CNM Hx of maternal laceration, 3rd degree, currently 06/10/2017 01/06/2018 Overview: 06/10/2017Patient has a history of a 3rd degree laceration with her first delivery. She had a 1st degree laceration with her last delivery. TKRN Recurrent major depressive disorder, in partial remission 05/10/2016 01/06/2018 Scabies infestation 11/15/2014 05/10/2016 Chlamydia infection 07/12/2014 05/10/2016 Overview: 11/12/14 Negative GC/chlamydia. Moni Gilliland CNP 07/12/14: Positive chlamydia. Will treat. Rescreen later in . Leticia Paez MD October 11, 2014 Still positive, retreat, rescreen 3rd trimester. Leticia Paez MD Rubella non-immune status, antepartum 07/12/2014 05/10/2016 Supervision of other high-risk 014 05/10/2016 Overview: December 09, 2014 first had 3rd degree laceration, counseled, trial of labor. Leticia Paez MD Rubella non-immune status 01/07/20132013 Susceptible to varicella (non-immune), currently 01/07/2013 05/10/2016 Overview: 07/12/14: subsequent and still nonimmune. Moni Gilliland CNP Avoidance and PP vaccination with care elsewhere, antepart 01/05/2013 01/06/2018 Overview: 06/10/2017Patient is transferring care from [place], [place]. She states she was last seen in April there. She had labwork and an untrasound done. Patient signed a release of records form to obtain her medical records from [facility] in [place]. TKRN Nausea and vomiting in 01/05/2013 07/09/2014 Overview: 01/05/2013 Patient states that she vomits 1-2 times a day. Discussed nausea and vomiting in . Advised patient to call/come in if she is unable to keep any food or fluids down in a 24-hour period. A prescription for Phenergan given to patient by Dr. Grace. History of abnormal Pap smear 01/05/2013 Overview: 01/05/2013Patient states she had an abnormal Pap smear in [place] October 2012. She is unsure of the facility or the doctor where she had it done. She states she will get address information from her father in [place], so she can sign a release form for her Pap results. Family history of genetic disease 01/05/2013 07/09/2014 Overview: 01/05/2013The father of the baby's aunt has muscular dystrophy. Patient requested diagnostic testing 01/05/2013 07/09/2014 Overview: 01/05/2013 Patient desires early screening in with sequential testing. Emergency contraceptive counseling 01/02/2010 01/02/2010 documented as of this encounter (statuses as of 04/24/2022) [facility] History of Past illness Narrative* Problem Noted Date Resolved Date Unstable lie of fetus 10/22/2017 01/06/2018 Overview: 10/24/17: Baby Transverse Lie on exam today. Hillary Layne CNM Hx of maternal laceration, 3rd degree, currently 06/10/2017 01/06/2018 Overview: 06/10/2017Patient has a history of a 3rd degree laceration with her first delivery. She had a 1st degree laceration with her last delivery. TKRN Recurrent major depressive disorder, in partial remission 05/10/2016 01/06/2018 Scabies infestation 11/15/2014 05/10/2016 Chlamydia infection 07/12/2014 05/10/2016 Overview: 11/12/14 Negative GC/chlamydia. Moin Gilliland, ASSIGNMENT CLERK 07/12/14: Positive chlamydia. Will treat. Rescreen later in . Leticia Paez MD October 11, 2014 Still positive, retreat, rescreen 3rd trimester. Leticia Paez MD Rubella non-immune status, antepartum 07/12/2014 05/10/2016 Supervision of other high-risk 014 05/10/2016 Overview: December 09, 2014 first had 3rd degree laceration, counseled, trial of labor. Leticia Paez MD Rubella non-immune status 01/07/20132013 Susceptible to varicella (non-immune), currently 01/07/2013 05/10/2016 Overview: 07/12/14: subsequent and still nonimmune. Moni Darshana, ASSIGNMENT CLERK Avoidance and PP vaccination with care elsewhere, antepart 01/05/2013 01/06/2018 Overview: 06/10/2017Patient is transferring care from [place], [place]. She states she was last seen in April. She had labwork and an untrasound done. Patient signed a release of records form to obtain her medical records from [facility] in [place]. TKRN Nausea and vomiting in 01/05/2013 07/09/2014 Overview: 01/05/2013 Patient states that she vomits 1-2 times a day. Discussed nausea and vomiting in . Advised patient to call/come in if she is unable to keep any food or fluids down in a 24-hour period. A prescription for Phenergan given to patient by Dr. Grace. History of abnormal Pap smear 01/05/2013 Overview: 01/05/2013Patient states she had an abnormal Pap smear in [place] October 2012. She is unsure of the facility or the doctor where she had it done. She states she will get address information from her father in [place], so she can sign a release form for her Pap results. Family history of genetic disease 01/05/2013 07/09/2014 Overview: 01/05/2013The father of the baby's aunt has muscular dystrophy. Patient requested diagnostic testing 01/05/2013 07/09/2014 Overview: 01/05/2013 Patient desires early screening in with sequential testing. Emergency contraceptive counseling 01/02/2010 01/02/2010 documented as of this encounter (statuses as of 05/15/2022) [facility] + Plan note No data available for this section [facility] Evaluation note* Diagnosis Kidney stone- Primary Calculus of kidney Renal colic Ventral hernia without obstruction or gangrene Ventral hernia, unspecified, without mention of obstruction or gangrene documented in this encounter [facility] Work Phone: Evaluation note* Diagnosis Congenital medullary sponge kidney- Primary Kidney stone Calculus of kidney Abdominal wall hernia Ventral hernia, unspecified, without mention of obstruction or gangrene Left elbow pain Pain in joint, upper arm Special screening examination for viral disease Special screening examination for unspecified viral disease Obesity, Class II, BMI 35-39.9 Obesity, unspecified documented in this encounter [facility] note* Diagnosis Vitamin D deficiency- Primary Unspecified vitamin D deficiency documented in this encounter [facility] note* Diagnosis Ureterolithiasis- Primary Calculus of ureter Medullary sponge kidney Congenital medullary sponge kidney Nausea Nausea alone Supervision of other normal , antepartum Amenorrhea Absence of menstruation documented in this encounter [facility] Work Phone: Evaluation note* Diagnosis Seizure-like activity (HCC)- Primary Other convulsions documented in this encounter [facility] Work Phone: Evaluation note* Diagnosis Hospital discharge follow-up- Primary Other follow-up examination Seizures (HCC) Other convulsions Vitamin D deficiency Unspecified vitamin D deficiency Carpal tunnel syndrome, bilateral Carpal tunnel syndrome documented in this encounter [facility] note* Diagnosis Anxiety with depression documented in this encounter [facility] note* Diagnosis Acute cystitis without hematuria- Primary Acute cystitis Seizure-like activity (HCC) Other convulsions documented in this encounter [facility] Work Phone: Evaluation note* Diagnosis Seizure-like activity (HCC)- Primary Other convulsions documented in this encounter [facility] Work Phone: Evaluation note* Diagnosis Syncope, unspecified syncope type Memory loss of unknown cause Memory loss Confusion and disorientation Vertigo Dizziness and giddiness Convulsions, unspecified convulsion type ([facility]) documented in this encounter [facility] Work Phone: Evaluation note* Diagnosis Ureterolithiasis- Primary Calculus of ureter UTI (urinary tract infection), bacterial [facility] L[facility]itis- Primary Acute laryngitis, without mention of obstruction Viral URI with cough [facility] Obstruction of left ureteropelvic junction (UPJ) due to stone- Primary Obstruction of left ureteropelvic junction (UPJ) due to stone Renal calculus, bilateral Calculus of kidney Severe malnutrition (CMS/HCC) ([facility]) Nutritional marasmus [facility] Renal calculus Calculus of kidney [facility] Ureteral calculus, left- Primary Calculus of ureter [facility] Diagnosis Left flank pain- Primary Abdominal pain, unspecified site Ureteral stent present Urinary tract infection with hematuria, site unspecified [facility] Renal calculus, left- Primary Calculus of kidney [facility] Diagnosis Anxiety and depression- Primary Primary hypertension Unspecified essential hypertension [facility]* Diagnosis Anxiety and depression- Primary Primary hypertension Unspecified essential hypertension [facility]* Diagnosis Anxiety and depression- Primary Influenza vaccine needed Primary hypertension Unspecified essential hypertension [facility] Diagnosis Seizure (HCC)- Primary Other convulsions Psychogenic nonepileptic seizure [facility] Anxiety and depression- Primary Primary hypertension Unspecified essential hypertension Need for hepatitis C screening test Special screening examination for other specified viral diseases Screening for HIV (human immunodeficiency virus) Special screening examination for other specified viral diseases [facility] Anxiety and depression- Primary [facility] Diagnosis Anxiety and depression- Primary [facility] Diagnosis Anxiety and depression- Primary Primary hypertension Unspecified essential hypertension Disability due to neurological disorder [facility]* Diagnosis Primary hypertension Unspecified essential hypertension [facility] Primary hypertension- Primary Unspecified essential hypertension documented in this encounter [facility] note* Diagnosis Primary hypertension- Primary Unspecified essential hypertension documented in this encounter [facility] note* Diagnosis Primary hypertension- Primary Unspecified essential hypertension documented in this encounter [facility] note* Diagnosis Primary hypertension Unspecified essential hypertension documented in this encounter [facility] note* Diagnosis Well woman exam with routine gynecological exam- Primary Routine gynecological examination Screening for cervical cancer Screening for malignant neoplasm of the cervix Screening for deficiency anemia Screening for other and unspecified deficiency anemia Screening for diabetes mellitus Screening for cholesterol level Herpes simplex virus (HSV) infection Screening for STD (sexually transmitted disease) Primary hypertension Unspecified essential hypertension documented in this encounter [facility] note* Diagnosis Well woman exam with routine gynecological exam- Primary Routine gynecological examination Screening for cervical cancer Screening for malignant neoplasm of the cervix Screening for deficiency anemia Screening for other and unspecified deficiency anemia Screening for diabetes mellitus Screening for cholesterol level Herpes simplex virus (HSV) infection Screening for STD (sexually transmitted disease) Primary hypertension Unspecified essential hypertension documented in this encounter [facility] note* Diagnosis Left elbow pain Pain in joint, upper arm documented in this encounter [facility] note* Diagnosis Carpal tunnel syndrome, bilateral Carpal tunnel syndrome documented in this encounter [facility] note* Diagnosis Chronic cough Cough Tobacco use disorder documented in this encounter [facility] note* Diagnosis Burning with urination- Primary Dysuria documented in this encounter [facility] note* Diagnosis Syncope and collapse Other amnesia Disorientation, unspecified Unspecified convulsions (HCC) documented in this encounter [facility] note* Diagnosis Dizziness and giddiness- Primary documented in this encounter [facility] note* Diagnosis Syncope and collapse- Primary Other amnesia Dizziness and giddiness Unspecified convulsions (HCC) Syncope and collapse Other amnesia Dizziness and giddiness Unspecified convulsions (HCC) documented in this encounter [facility] noteNo assessment information available[facility] Work Phone: Hospital Discharge instructions* Attachments The following attachments cannot be sent through Care Everywhere. * Kidney Stone (Serbian) documented in this [facility] Work Phone: Hospital Discharge instructions* Instructions* Pallaci, Angus, DO - 02/19/2022 Our urology team will call you in the morning to schedule follow-up, call them yourself if not heard from them by lunchtime. Use prescribed meloxicam and antibiotic on a schedule, not just as needed.Add acetaminophen 1000 mg up to 4 times daily as needed for pain. Use Zofran as needed for nausea. If above regimen is not successful, use prescribed morphine as needed for pain. Do not drive home and do not drive, climb or operate machinery while using morphine. Return to the emergency department for fever, if unable to tolerate fluids, if unable to control pain at home with prescribed medications, or if any other problems arise. * Attachments The following attachments cannot be sent through Care Everywhere. * Kidney Stone (Serbian) documented in this [facility] Work Phone: [facility] Discharge instructions* Attachments The following attachments cannot be sent through Care Everywhere. * Seizure (Serbian) * UTI (Urinary Tract Infection): Female (Serbian) documented in this [facility] Work Phone: [facility] Discharge instructions* Attachments The following attachments cannot be sent through Care Everywhere. * Seizure (Serbian) documented in this [facility] Work Phone: [facility] Discharge instructions* Attachments The following attachments cannot be sent through Care Everywhere. * Kidney Stones Discharge Instructions (Serbian) documented in this [facility] Discharge instructions* Attachments The following attachments cannot be sent through Care Everywhere. * Ureteral Stent (Serbian) documented in this [facility] Discharge instructions* Attachments The following attachments cannot be sent through Care Everywhere. * Laser Lithotripsy for Kidney Stones Discharge Instructions (Serbian) documented in this [facility] Discharge instructions* Attachments The following attachments cannot be sent through Care Everywhere. * Ureteral Stent Discharge Instructions (Serbian) * Urinary Tract Infections in Adults (Serbian) documented in this [facility] Discharge instructions Additional Instructions Continue to keep a log of your blood pressures twice daily. Take these to your follow-up appointment with your primary care physician.[facility] Work Phone: Instructions* Attachments The following attachments cannot be sent through Care Everywhere. * Flu Vaccine (Serbian) documented in this [facility] for referral (narrative)* Consultation (Urgent) - Pending Review Specialty Diagnoses / Procedures Referred By Contac t Referred To Contact Urology Diagnoses Ureterolithiasis UTI (urinary tract infection), bacterial Procedures UT OFFICE/OUTPATIENT NEW HIGH MDM 60-74 MINUTES Alejandro Kaplan DO [address] [place] [address] [facility] [address] [place] [address] Referral ID Status Reason Start Date Expiration Date Visits Requested Visits Authorized [id number] Pending Review Specialty Services Required 12/26/2022 12/26/2023 1 1 [facility] for referral (narrative)* Diagnostic Procedure Only (Routine) - Closed Specialty Diagnoses / Procedures Referred By Contac t Referred To Contact XR IMAGING Diagnoses Left elbow pain Procedures XR ELBOW GENERAL 2V AP/LAT LEFT RADEX ELBOW 2 VIEWS Jojo Cordova APRN.CNP, DNP [address] [place] [address] [place] [address] Referral ID Status Reason Start Date Expiration Date V isits Requested Visits Authorized [id number] Closed Auto-Generate d Referral 12/19/2021 01/18/2023 1 1 [facility] for referral (narrative)* Diagnostic Procedure Only (Routine) - Closed Specialty Diagnoses / Procedures Referred By Contac t Referred To Contact XR IMAGING Diagnoses Carpal tunnel syndrome, bilateral Procedures XR HAND GENERAL 3V PA/LAT/OBL BILAT X-RAY HAND MINIMUM 3 VIEWS Jojo Cordova APRN.CNP, DNP [address] [place] [address] [place] [address] Referral ID Status Reason Start Date Expiration Date V isits Requested Visits Authorized [id number] Closed Auto-Generate d Referral 07/18/2021 08/17/2022 1 1 [facility] for referral (narrative)* Consultation (Routine) - Pending Review Specialty Diagnoses / Procedures Referred By Contac t Referred To Contact Diagnoses Syncope and collapse Other amnesia Disorientation, unspecified Unspecified convulsions (HCC) Procedures EEG continuous monitoring Ac Crabtree MD [address] [place] [address] Ac Crabtree MD [address] [facility] [address] [place] [address] Referral ID Status Reason Start Date Expiration Date V isits Requested Visits Authorized [id number] Pending Review 06/30/2022 12/27/2022 1 1 [facility] for referral (narrative)No reason for referral information availableWOhio[facility] Work Phone: [facility] for [facility] Narrative* Diagnostic Procedure Only (Routine) - Closed Specialty Diagnoses / Procedures Referred By Contac t Referred To Contact XR IMAGING Diagnoses Left elbow pain Procedures XR ELBOW GENERAL 2V AP/LAT LEFT RADEX ELBOW 2 VIEWS Jojo Cordova APRN.CNP, DNP [address] [place] [address] [place] [address] Referral ID Status Reason Start Date Expiration Date V isits Requested Visits Authorized [id number] Closed Auto-Generate d Referral 12/19/2021 01/18/2023 1 1 [facility] for visit Narrative* Diagnostic Procedure Only (Routine) - Closed Specialty Diagnoses / Procedures Referred By Contac t Referred To Contact XR IMAGING Diagnoses Carpal tunnel syndrome, bilateral Procedures XR HAND GENERAL 3V PA/LAT/OBL BILAT X-RAY HAND MINIMUM 3 VIEWS Jojo Cordova APRN.CNP, DNP [address] [place] [address] [place] [address] Referral ID Status Reason Start Date Expiration Date V isits Requested Visits Authorized [id number] Closed Auto-Generate d Referral 07/18/2021 08/17/2022 1 1 [facility] Summary Purpose Family History No Family History Records FoundNo Family History Records FoundNo Family History Records FoundNo Family History Records Found No data available for this section No Family History Records FoundNo Family History Records FoundNo Family History Records FoundNo Family History Records FoundNo Family History Records Found Advance Directives No Advanced Directives Records FoundDocuments on File Type Date Recorded Patient Oil Rag Washer Expl anation ACP-Advance Directive ACP-Power of Set Up Machinist Documents on File Type Date Recorded Patient Oil Rag Washer Expl anation Advance Directive(s) 01/06/2019 6:40 AM Advance Directive(s) 02/18/2018 9:40 AM Documents on File Type Date Recorded Patient Oil Rag Washer Expl anation Advance Directive(s) 01/06/2019 6:40 AM Advance Directive(s) 02/18/2018 9:40 AM Documents on File Type Date Recorded Patient Oil Rag Washer Expl anation ACP-Advance Directive ACP-Power of Set Up Machinist Latest Code Status on File Code Status Date Activated Date Inactivated Comments Full Code 03/14/2023 4:05 AM Latest Code Status on File Code Status Date Activated Date Inactivated Comments Full Code 03/14/2023 4:05 AM 03/15/2023 10:16 AM Latest Code Status on File Code Status Date Activated Date Inactivated Comments Full Code 03/14/2023 4:05 AM 03/15/2023 10:16 AM Date Activated Date Inactivated Comments 03/14/2023 4:05 AM 03/15/2023 10:16 AM Advance Directive Response Recorded Date/ Time Living Will No September 06 9:26pm Do you have a Healthcare Power of Set Up Machinist? No September 06, 2024 9:26pm Advance Directives No October 08, 2016 10:33pm Advance Directive Response Recorded Date/ Time Advance Directives No October 08, 2016 10:33pm Advance Directive Response Recorded Date/ Time Do you have a Healthcare Power of Set Up Machinist? No March 03, 2025 8:56am Advance Directives No October 08, 2016 10:33pm Reason for Referral Specialty Diagnoses / Procedures Referred By Yue read Referred To Contact Urology Diagnoses Renal colic Linden Garduno MD [address] [place] [address] [facility] [address] [place] [address] Referral ID Status Reason Start Date Expiration Date V isits Requested Visits Authorized [id number] Open Specialty Services Required 12/01/2021 12/01/2022 1 1 Scheduling Instructions [facility] - [place] [address] [place] [address] Specialty Diagnoses / Procedures Referred By Contac t Referred To Contact General Surgery Diagnoses Abdominal wall hernia Procedures CONSULT TO GENERAL SURGERY OFFICE/OUTPATIENT [facility] 60-74 MINUTES Jojo Cordova APRN.CNP, BINA [address] [place] [address] Referral ID Status Reason Start Date Expiration Date Visits Requested Visits Authorized [id number] Authorized PCP Requested Referral 01/02/2022 12/19/2022 1 1 Specialty Diagnoses / Procedures Referred By Contac t Referred To Contact Urology Diagnoses Congenital medullary sponge kidney Kidney stone Procedures CONSULT TO UROLOGY OFFICE/OUTPATIENT [facility] 60-74 MINUTES Jojo Cordova APRN.CNP, BINA [address] [place] [address] Referral ID Status Reason Start Date Expiration Date Visits Requested Visits Authorized [id number] Authorized PCP Requested Referral 12/19/2021 12/19/2022 1 1 Specialty Diagnoses / Procedures Referred By Contac t Referred To Contact US IMAGING Diagnoses Congenital medullary sponge kidney Kidney stone Procedures US KIDNEY/BLADDER US RETROPERITONEAL REAL TIME W/IMAGE COMPLETE Jojo Cordova APRN.CNP, DNP [address] [place] [address] Us Imaging Referral ID Status Reason Start Date Expiration Date Visits Requested Visits Authorized [id number] Authorized Auto-Generat ed Referral 12/20/2021 01/18/2023 1 1 Specialty Diagnoses / Procedures Referred By Contac t Referred To Contact XR IMAGING Diagnoses Left elbow pain Procedures XR ELBOW GENERAL 2V AP/LAT LEFT RADEX ELBOW 2 VIEWS Jojo Cordova APRN.CNP, DNP [address] [place] [address] Xr Imaging Referral ID Status Reason Start Date Expiration Date V isits Requested Visits Authorized [id number] Closed Auto-Generate d Referral 12/19/2021 01/18/2023 1 1 Specialty Diagnoses / Procedures Referred By Contac t Referred To Contact Urology Diagnoses Ureterolithiasis Medullary sponge kidney Shalonda Rodriguez, DO [address] [place] [address] [facility] [address] [place] [address] Referral ID Status Reason Start Date Expiration Date V isits Requested Visits Authorized [id number] Open Specialty Services Required 02/19/2022 02/19/2023 1 1 Specialty Diagnoses / Procedures Referred By Contac t Referred To Contact Neurology Diagnoses Seizures (HCC) Procedures CONSULT TO NEUROLOGY OFFICE/OUTPATIENT [facility] 60-74 MINUTES Comfort Pantoja APRN.ASSIGNMENT CLERK [address] [place] [address] Referral ID Status Reason Start Date Expiration Date Visits Requested Visits Authorized [id number] Authorized PCP Requested Referral 03/21/2022 03/21/2023 1 1 Specialty Diagnoses / Procedures Referred By Contac t Referred To Contact Neurology Diagnoses Seizure-like activity (HCC) Jojo Llanos APRN - ASSIGNMENT CLERK [address] [place] [address] [facility] Amy [address] [place] [address] Referral ID Status Reason Start Date Expiration Date V isits Requested Visits Authorized [id number] Open Specialty Services Required 06/12/2022 06/12/2023 1 1 Scheduling Instructions [facility] Neurology - [place] [address] [place], [place] [address] Comments The patient can be scheduled with any member of the group, including the provider with the first available appointments. Specialty Diagnoses / Procedures Referred By Contac t Referred To Contact Radiology Diagnoses Syncope, unspecified syncope type Memory loss of unknown cause Confusion and disorientation Vertigo Convulsions, unspecified convulsion type (HCC) Procedures MRI BRAIN W WO CONTRAST Ac Crabtree MD [address] [facility] [address] [place] [address] Referral ID Status Reason Start Date Expiration Date V isits Requested Visits Authorized [id number] Authorized 06/19/2022 06/19/2023 1 1 Specialty Diagnoses / Procedures Referred By Contac t Referred To Contact Mars Stewart MD [address] [place] [address] Referral ID Status Reason Start Date Expiration Date V isits Requested Visits Authorized [id number] Pending Review 1 1 Specialty Diagnoses / Procedures Referred By Contac t Referred To Contact Eloisa Squires MD [address] [place] [address] Referral ID Status Reason Start Date Expiration Date V isits Requested Visits Authorized [id number] Pending Review 1 1 Specialty Diagnoses / Procedures Referred By Contac t Referred To Contact Radiology Diagnoses Syncope and collapse Other amnesia Dizziness and giddiness Unspecified convulsions (HCC) Procedures MR brain w and wo contrast Ac Crabtree MD [address] [facility] [address] [place] [id number] Referral ID Status Reason Start Date Expiration Date Visits Re quested Visits Authorized [id number] Closed 07/09/2022 01/05/2023 1 1 Chief Complaint and Reason for Visit Chief Complaint Admit Date flu-like symptoms September 06, 2024 8:21pm NEEDS ORDER December 07, 2024 10: 39am Chief Complaint Admit Date NEEDS ORDER December 07, 2024 10: 39am R/L ANKLE January 27, 2025 7:05a m Chief Complaint Admit Date NEEDS ORDER December 07, 2024 10: 39am R/L ANKLE January 27, 2025 7:05a m HTN March 03, 2025 7:51 am Additional Source Comments INFORMATION SOURCE (unrecogn ized section and content) DATE CREATED AUTHOR 03/12/2018 [facility] DATE CREATED AUTHOR AUTHOR'S ORGANIZ ATION 01/06/2019 [facility] DATE CREATED AUTHOR AUTHOR'S ORGANIZ ATION 07/11/2022 [facility] DATE CREATED AUTHOR AUTHOR'S ORGANIZ ATION 07/12/2022 [facility] DATE CREATED AUTHOR AUTHOR'S ORGANIZ ATION 03/15/2024 [facility] ([place]) DATE CREATED AUTHOR AUTHOR'S ORGANIZ ATION 04/04/2024 [facility] DATE CREATED AUTHOR AUTHOR'S ORGANIZ ATION 06/27/2024 [facility] DATE CREATED AUTHOR AUTHOR'S ORGANIZ ATION 01/29/2025 [facility] DATE CREATED AUTHOR AUTHOR'S ORGANIZ ATION 03/04/2025 [facility] Reason for Visit (unrecogniz ed section and content) Reason Comments Flank Pain Left Reason Comments ED Follow-up kidney stone- 2 Reason Comments Results Reason Comments Flank Pain Reason Comments Seizures Reason Comments Patient Update Reason Comments Follow Up HOSP Reason Comments Refill Request Reason Comments Seizures Witnessed by , occurred earlier today. Hx, last known seizure approx 3-4 weeks ago while getting tattoo Reason Onset Date Comments Med Refill 02/14/2023 Reason Comments Sore Throat Patient has had sore throat for 2 weeks and now a productive cough of green sputum. Forehead temp is 97.3. Patient sees white and green bumps on tonsils also. Patient's voice has become hoarse. Reason Comments Flank Pain Specialty Diagnoses / Procedures Referred By Yue read Referred To Contact Diagnoses Obstruction of left ureteropelvic junction (UPJ) due to stone Procedures . Michael Hess MD [address] [place] [address] [facility] 1e Med Surg [address] [place] [address] Referral ID Status Reason Start Date Expiration Date Visits Re quested Visits Authorized [id number] 1 1 Specialty Diagnoses / Procedures Referred By Yue read Referred To Contact Diagnoses Renal calculus Renal calculus [N20.0] Procedures UT CYSTO W/URETEROSCOPY W/LITHOTRIPSY Wilmar Cristobal MD [address] [place] [address] Referral ID Status Reason Start Date Expiration Date Visits Re quested Visits Authorized [id number] 03/14/2023 1 1 Reason Onset Date Comments UTI 03/22/2023 Specialty Diagnoses / Procedures Referred By Yue read Referred To Contact Diagnoses Calculus of kidney Calculus of kidney [N20.0] Procedures UT CYSTO BLADDER W/URETERAL CATHETERIZATION UT CYSTO W/URETEROSCOPY W/LITHOTRIPSY UT CYSTO W/INSERT URETERAL STENT CYSTOSCOPY AND PYELOGRAM. LEFT URETEROSCOPY HOLMIUM LASER LITHOTRIPSY, LEFT STENT CHANGE CYSTOSCOPY WITH URETEROSCOPY AND OR PYELOSCOPY WITH REMOVAL OR MANIPULATION CALCULUS WITH LITHOTRIPSY CYSTOSCOPY WITH INSERTION URETERAL STENT Wilmar Cristobal MD [address] [facility]. [address] [place] [address] [address] [place] [address] Referral ID Status Reason Start Date Expiration Date Visits Re quested Visits Authorized [id number] 1 1 Reason Comments Procedure Cysto Reason Comments Medication Problem Reason Comments Follow-up Hypertension Depression Flu Vaccine Patient agreeable fo r influenza vaccine-but had reaction when younger-discuss vaccine with provider-does not recall last time she had flu vaccine Reason Comments Seizures At 0100 Reason Comments Follow-up Health Maintenance Hep B-DeclinedLipid- -pendedHIV/Hep S-gjoxzuMspjuw-nxxtogujWvconyuvm-already hadPap-needs to migue.Covid-declined Reason Comments Anxiety Depression Follow-up Reason Onset Date Comments Forms/questionnaires 12/06/2023 Reason Comments Letter for School/Work Reason Comments Follow-up Hypertension Reason Comments Hypertension Reason Comments Hypertension Reason Comments Follow-up Blood pressure Reason Onset Date Comments Rectal Bleeding 03/13/2024 Reason Comments Gynecologic Exam Health Maintenance Ppz-dverzdEgi-kxttgx tedLipid-pended Reason Comments Urinary Problem burning and pressure with urination x 2 days, took azo and started period today Reason Onset Date Comments Med Refill 11/06/2022 Ordered Prescriptions (unrec ognized section and content) Prescription Sig Dispensed Refills Start Date End Da te diphenhydrAMINE-APAP (PERCOGESIC) 12.5-325 MG TABS Take 1 tablet by mouth 4 times daily as needed (pain) 112 tablet 0 12/01/2021 ketorolac (TORADOL) 10 MG tablet Take 1 tablet by mouth every 6 hours as needed for Pain 20 tablet 0 12/01/2021 12/01/2022 tamsulosin (FLOMAX) 0.4 MG capsule Take 1 capsule by mouth daily 14 capsule 0 12/01/2021 Prescription Sig Dispensed Refills Start Date End Da te amoxicillin-clavulanate (AUGMENTIN) 875-125 MG per tablet Take 1 tablet by mouth 2 times daily for 7 days 14 tablet 0 02/19/2022 02/26/2022 meloxicam (MOBIC) 15 MG tablet Take 1 tablet by mouth daily 10 tablet 0 02/19/2022 ondansetron (ZOFRAN) 4 MG tabletIndications:Nause a,Supervision of other normal , antepartum,Amenorrhea Take 1-2 tablets by mouth 4 times daily as needed for Nausea or Vomiting 20 tablet 1 02/19/2022 morphine (MSIR) 15 MG tabletIndications:Urete rolithiasis Take 0.5-1 tablets by mouth every 4 hours as needed for Pain (pain not responding to meloxicam and tylenol) for up to 3 days. 8 tablet 0 02/19/2022 02/22/2022 ondansetron (ZOFRAN) 4 MG tablet Take 1-2 tablets by mouth 3 times daily as needed for Nausea or Vomiting 15 tablet 0 02/19/2022 amoxicillin-clavulanate (AUGMENTIN) 875-125 MG per tablet Take 1 tablet by mouth 2 times daily for 7 days 14 tablet 0 02/19/2022 02/19/2022 ondansetron (ZOFRAN) 4 MG tabletIndications:Nause a,Supervision of other normal , antepartum,Amenorrhea Take 1-2 tablets by mouth 4 times daily as needed for Nausea or Vomiting 20 tablet 1 02/19/2022 02/19/2022 meloxicam (MOBIC) 15 MG tablet Take 1 tablet by mouth daily 10 tablet 0 02/19/2022 02/19/2022 Prescription Sig Dispensed Refills Start Date End Da te cephALEXin (KEFLEX) 500 MG capsule Take 1 capsule by mouth 2 times daily for 7 days 14 capsule 0 06/12/2022 06/19/2022 Scheduled Active and Recently Administ ered Medications (unrecognized section and content) Medication Order 11/30/2021 12/01/2021 12/02/2021 acetaminophen (TYLENOL) tablet 1,000 mg (COMPLETED) 1,000 mg, Oral, ONCE, On Sat12/01/21 at 2028, For 1 dose, Maximum dose of acetaminophen is 4000 mg from all sources in 24 hours. 2033 (Given - Provider: Marquita Renteria RN) tamsulosin (FLOMAX) capsule 0.4 mg (COMPLETED) 0.4 mg, Oral, ONCE, On Sat12/01/21 at 2316, For 1 dose, Do not crush or break. 2335 (Given - Provider: Janet Sorto RN) PRN Medication Order 11/30/2021 12/01/2021 12/02/2021 diatrizoate meglumine-sodium (GASTROGRAFIN) 66-10 % solution 30 mL 30 mL, Oral, IMG ONCE PRN, Other, Starting on Sat12/01/21 at 2025 2041 (Not Given - Provider: Marquita Renteria RN - Reason: Medication not available - Comment: Given isovue oral contrast, physician notified.) Scheduled Medication Order 02/17/2022 02/18/2022 02/19/2022 acetaminophen (TYLENOL) tablet 1,000 mg (COMPLETED) 1,000 mg, Oral, ONCE, 1 dose, On Sat02/19/22 at 0340, Maximum dose of acetaminophen is 4000 mg from all sources in 24 hours. 0357 (Given - Provid er: Laura Bledsoe RN) cefTRIAXone (ROCEPHIN) 2,000 mg in dextrose 5 % 50 mL IVPB (COMPLETED) 2,000 mg, IntraVENous, ONCE, 1 dose, On Sat02/19/22 at 0457, Antimicrobial Indications: Urinary Tract Infection 0503 (New Bag - Prov ider: Laura Bledsoe RN)0539 (Stopped - Provider: Laura Bledsoe RN) ketamine (KETALAR) injection 20 mg (COMPLETED) 20 mg, IntraVENous, ONCE, 1 dose, On Sat02/19/22 at 0431, Slow IVP over 3 min, Slow IVP over 3 min 0435 (Given - Provid er: Laura Bledsoe RN) ketorolac (TORADOL) injection 9.9 mg (COMPLETED) Ketorolac is contraindicated in patients with advanced renal impairment and in patients at risk of renal failure due to volume depletion. For 65 years of age and older OR weight less than 50 kg, use 15 mg IV every 6 hours; MAX dose: 60 mg/day. Dose greater than 30 mg must be administered via intramuscular route. Do not administer for more than 5 days., 9.9 mg (rounded from 10 mg), IntraVENous, ONCE, 1 dose, On Sat02/19/22 at 0340 0357 (Given - Provid er: Laura Bledsoe RN) LORazepam (ATIVAN) injection 0.5 mg (COMPLETED) 0.5 mg, IntraVENous, ONCE, 1 dose, On Sat02/19/22 at 0456 0457 (Given - Provid er: Laura Bledsoe RN) morphine injection 8 mg 8 mg, IntraVENous, ONCE, 1 dose, On Sat02/19/22 at 0509, If oral and IV narcotics ordered, use oral first and only use IV if oral is ineffective or cannot take oral. Do Not give oral and IV within 1 hour of each other unless specifically ordered. 0558 (Not Given - Pr ovider: Laura Bledsoe RN - Reason: Order parameters not met) ondansetron (ZOFRAN) injection 4 mg (COMPLETED) 4 mg, IntraVENous, ONCE, 1 dose, On Sat02/19/22 at 0341 0357 (Given - Provid er: Laura Bledsoe RN) sodium chloride flush 0.9 % injection 3 mL(Linked Group 1) 3 mL, IntraVENous, EVERY 8 HOURS, First dose on Sat02/19/22 at 0340, Until Discontinued, Flush line with 3-5 mL 0340 (Due)1140 (Due) 1940 (Due) PRN Medication Order 02/17/2022 02/18/2022 02/19/2022 morphine injection 8 mg 8 mg, IntraVENous, PRN, Starting on Sat02/19/22 at 0454, Until Discontinued, Pain Severe (7-10), If oral and IV narcotics ordered, use oral first and only use IV if oral is ineffective or cannot take oral. Do Not give oral and IV within 1 hour of each other unless specifically ordered. 0504 (Given - Provid er: Laura Bledsoe RN - Comment: patient still complaining of 10/[address] rodriguez aware and states ok to give morphine now.) ondansetron (ZOFRAN) injection 4 mg 4 mg, IntraVENous, PRN, Starting on Sat02/19/22 at 0340, Until Discontinued, Nausea, Vomiting, if still nauseous after first dose Linked Groups Order Group 1: Saline lock IV (COMPLETED) Routine, CONTINUOUS, Starting on Sat02/19/22 at 0345, Until Specified And sodium chloride flush 0.9 % injection 3 mLJump to med 3 mL, IntraVENous, EVERY 8 HOURS, First dose on Sat02/19/22 at 0340, Until Discontinued
Flush line with 3-5 mL
Scheduled Medication Order 03/12/2022 03/13/2022 03/14/2022 0.9 % sodium chloride bolus (COMPLETED) 1,000 mL, IntraVENous, at 1,935.5 mL/hr, Administer over 31 Minutes, ONCE, On Sat03/14/22 at 1920, For 1 dose 1930 (New Bag - Prov ider: Padmaja Kaufman RN)2004 (Stopped - Provider: Padmaja Kaufman RN) No Frequency Medication Order 03/12/2022 03/13/2022 03/14/2022 LORazepam (ATIVAN) 2 MG/ML injection 1 dose, Starting on Sat03/14/22 at 1924, Until Leida 03/15/22 at 0726, Marquita Renteria: cabinet override, Marquita Renteria: cabinet override 2222 (Not Given - Pr ovider: Padmaja Kaufman RN - Reason: Other - Comment: not given for sz. med wasted) Scheduled Medication Order 06/10/2022 06/11/2022 06/12/2022 cephALEXin (KEFLEX) capsule 500 mg (COMPLETED) 500 mg, Oral, ONCE, 1 dose, On Sat06/12/22 at 1945, Antimicrobial Indications: Urinary Tract Infection 2012 (Given - Provid er: Roxanne Daniels LPN) sodium chloride flush 0.9 % injection 3 mL(Linked Group 1) 3 mL, IntraVENous, EVERY 8 HOURS, First dose on Sat06/12/22 at 1800, Until Discontinued, Flush line with 3-5 mL 1800 (Due) Continuous Medication Order 06/10/2022 06/11/2022 06/12/2022 0.9 % sodium chloride infusion IntraVENous, at 125 mL/hr, CONTINUOUS, Starting on Sat06/12/22 at 1800 1800 (Due) Linked Groups Order Group 1: Saline lock IV (COMPLETED) Routine, CONTINUOUS, Starting on Sat06/12/22 at 1800, Until Specified And sodium chloride flush 0.9 % injection 3 mLJump to med 3 mL, IntraVENous, EVERY 8 HOURS, First dose on Sat06/12/22 at 1800, Until Discontinued
Flush line with 3-5 mL
Scheduled Medication Order 12/24/2022 12/25/2022 12/26/2022 ketorolac (Toradol) injection 15 mg (COMPLETED) 15 mg, IntraVENous, Once, On Sat12/26/22 at 0225, For 1 dose 0236 (Given - Provid er: Padmaja Kaufman RN) ketorolac (Toradol) injection 15 mg (COMPLETED) 15 mg, IntraVENous, Once, On Sat12/26/22 at 0345, For 1 dose 0345 (Given - Provid er: Padmaja Kaufman RN) morphine sulfate (PF) injection 4 mg (COMPLETED) 4 mg, IntraVENous, Once, On Sat12/26/22 at 0225, For 1 dose, If oral and IV narcotics ordered, use oral first and only use IV if oral is ineffective or cannot take oral. Do Not give oral and IV within 1 hour of each other unless specifically ordered. 0237 (Given - Provid er: Padmaja Kaufman RN) morphine sulfate (PF) injection 4 mg (COMPLETED) 4 mg, IntraVENous, Once, On Sat12/26/22 at 0345, For 1 dose, If oral and IV narcotics ordered, use oral first and only use IV if oral is ineffective or cannot take oral. Do Not give oral and IV within 1 hour of each other unless specifically ordered. 0346 (Given - Provid er: Padmaja Kaufman RN) ondansetron (Zofran) injection 4 mg (COMPLETED) 4 mg, IntraVENous, Once, On Sat12/26/22 at 0245, For 1 dose 0243 (Given - Provid er: Padmaja Kaufman RN) sulfamethoxazole-trimethoprim (Bactrim DS) 800-160 MG per tablet 1 tablet (COMPLETED) 1 tablet, Oral, Once, On Sat12/26/22 at 0340, For 1 dose, Suspected Indication (Select all that apply): Urinary Tract Infection 0345 (Given - Provid er: Padmaja Kaufman RN) Scheduled Medication Order 03/13/2023 03/14/2023 03/15/2023 cefTRIAXone (Rocephin) 1,000 mg in sodium chloride 0.9 % 50 mL IVPB Mini-Bag Plus (COMPLETED) 1,000 mg, IntraVENous, at 100 mL/hr, Administer over 30 Minutes, Once, On Leida 03/14/23 at 0030, For 1 dose, Mini-Bag Plus bag, Suspected Indication (Select all that apply): Urinary Tract Infection 43 (New Bag - Provider: Lillian Mancilla RN)012 (Stopped - Provider: Kathleen Gonzalez RN) cefTRIAXone (Rocephin) 1,000 mg in sodium chloride 0.9 % 50 mL IVPB Mini-Bag Plus 1,000 mg, IntraVENous, at 100 mL/hr, Administer over 30 Minutes, Every 24 hours, First dose on Leida 03/14/23 at 2200, Mini-Bag Plus bag, Suspected Indication (Select all that apply): Urinary Tract Infection 2057 (New Bag - Provider: Padmaja Yanes RN)2127 (Stopped - Provider: Padmaja Yanes RN) escitalopram (Lexapro) tablet 20 mg 20 mg, Oral, Daily, First dose on Leida 03/14/23 at 0900 0957 (Given - Provider: Harpal Wilson RN) 0814 (Given - Provider: Bijan Vee RN) HYDROmorphone (Dilaudid) injection 0.5 mg (COMPLETED) 0.5 mg, IntraVENous, Once, On Leida 03/14/23 at 0030, For 1 dose, If oral and IV narcotics ordered, use oral first and only use IV if oral is ineffective or cannot take oral. Do Not give oral and IV within 1 hour of each other unless specifically ordered. 0039 (Given - Provider: Lillian Mancilla RN) lisinopril tablet 5 mg 5 mg, Oral, Daily, First dose on Leida 03/14/23 at 0900 0957 (Given - Provider: Harpal Wilson, RN) 0813 (Given - Provider: Bijan Vee, DONAVAN) melatonin tablet 3 mg 3 mg, Oral, Nightly, First dose on Sat03/14/23 at 2100 2057 (Given - Provider: Padmaja Yanes, DONAVAN) morphine sulfate (PF) injection 4 mg (COMPLETED) 4 mg, IntraVENous, Once, On Sat03/13/23 at 2315, For 1 dose, If oral and IV narcotics ordered, use oral first and only use IV if oral is ineffective or cannot take oral. Do Not give oral and IV within 1 hour of each other unless specifically ordered. 2323 (Given - Provider: Kathleen Gonzalez, RN) ondansetron (Zofran) injection 4 mg (COMPLETED) 4 mg, IntraVENous, Once, On Sat03/13/23 at 2315, For 1 dose 2323 (Given - Provider: Kathleen Gonzalez, RN) PRN Medication Order 03/13/2023 03/14/2023 03/15/2023 acetaminophen (Tylenol) suppository 650 mg(Linked Group 1) 650 mg, Rectal, Every 6 hours PRN, mild pain (1-3), fever, For temp greater than 100.4 F (38 C), Starting on Sat03/14/23 at 0402, Administer if oral route cannot be used. Maximum dose of acetaminophen is 4000 mg from all sources in 24 hours. 2058 (See Alternative - Provider: Padmaja Yanes, DONAVAN) acetaminophen (Tylenol) tablet 500 mg 500 mg, Oral, Every 6 hours PRN, mild pain (1-3), Starting on Sat03/15/23 at 0838, Maximum dose of acetaminophen is 4000 mg from all sources in 24 hours. acetaminophen (Tylenol) tablet 650 mg(Linked Group 1) 650 mg, Oral, Every 6 hours PRN, mild pain (1-3), fever, For temp greater than 100.4 F (38 C), Starting on Sat03/14/23 at 0402, Maximum dose of acetaminophen is 4000 mg from all sources in 24 hours. 2058 (Given - Provider: Padmaja Yanes, DONAVAN) albuterol 108 (90 Base) MCG/ACT inhaler 2 puff 2 puff, Inhalation, Every 6 hours PRN, wheezing, shortness of breath, Starting on Leida 03/14/23 at 0405 ondansetron (Zofran) injection 4 mg(Linked Group 2) 4 mg, IntraVENous, Every 6 hours PRN, nausea, vomiting, Starting on Leida 03/14/23 at 0402, 1st Line. Give IV if patient is unable to take orally. If inadequate response within 60 minutes, proceed to next-line agent or contact provider if no further options ordered. ondansetron ODT (Zofran-ODT) disintegrating tablet 4 mg(Linked Group 2) 4 mg, Oral, Every 8 hours PRN, nausea, vomiting, Starting on Leida 03/14/23 at 0402, 1st Line. If inadequate response within 60 minutes, proceed to next-line agent or contact provider if no further options ordered. Patient should allow tablet to dissolve on tongue. Do not remove from blister pack until just before administering. oxyCODONE-acetaminophen (Percocet) 5-325 MG per tablet 1 tablet 1 tablet, Oral, Every 6 hours PRN, moderate pain (4-6), severe pain (7-10), Starting on Leida 03/14/23 at 0403, Maximum dose of acetaminophen is 4000 mg from all sources in 24 hours. 0957 (Given - Provider: Harpal Wilson, DONAVAN)1848 (Given - Provider: Harpal Wilson RN) polyethylene glycol (PEG) 3350 (Miralax) packet 17 g 17 g, Oral, Daily PRN, constipation, Starting on Leida 03/14/23 at 0402, 1st line for treatment of constipation - give scheduled if no bowel movement in past 24 hours. Linked Groups Order Group 1: acetaminophen (Tylenol) tablet 650 mgJump to med 650 mg, Oral, Every 6 hours PRN, mild pain (1-3), fever, For temp greater than 100.4 F (38 C), Starting on Leida 03/14/23 at 0402
Maximum dose of acetaminophen is 4000 mg from all sources in 24 hours.
Or acetaminophen (Tylenol) suppository 650 mgJump to med 650 mg, Rectal, Every 6 hours PRN, mild pain (1-3), fever, For temp greater than 100.4 F (38 C), Starting on Leida 03/14/23 at 0402
Administer if oral route cannot be used. Maximum dose of acetaminophen is 4000 mg from all sources in 24 hours.
Group 2: ondansetron ODT (Zofran-ODT) disintegrating tablet 4 mgJump to med 4 mg, Oral, Every 8 hours PRN, nausea, vomiting, Starting on Leida 03/14/23 at 0402
1st Line. If inadequate response within 60 minutes, proceed to next-line agent or contact provider if no further options ordered. Patient should allow tablet to dissolve on tongue. Do not remove from blister pack until just before administering.
Or ondansetron (Zofran) injection 4 mgJump to med 4 mg, IntraVENous, Every 6 hours PRN, nausea, vomiting, Starting on Leida 03/14/23 at 0402
1st Line. Give IV if patient is unable to take orally. If inadequate response within 60 minutes, proceed to next-line agent or contact provider if no further options ordered.
Scheduled Medication Order 03/13/2023 03/14/2023 03/15/2023 acetaminophen (Tylenol) tablet 1,000 mg (COMPLETED) 1,000 mg, Oral, Once, On Sat03/15/23 at 1115, For 1 dose, Preprocedure, Maximum dose of acetaminophen is 4000 mg from all sources in 24 hours. Do not administer if patient has taken tylenol <4 hours earlier. Do not give if contraindicated ie. patient has active liver disease or cirrhosis. 1126 (Given - Provid er: Philippe Wong RN) famotidine (Pepcid) tablet 20 mg (COMPLETED) 20 mg, Oral, Once, On Sat03/15/23 at 1115, For 1 dose, Preprocedure 1127 (Given - Provid er: Philippe Wong RN) gabapentin (Neurontin) capsule 100 mg (COMPLETED) 100 mg, Oral, Once, On Sat03/15/23 at 1115, For 1 dose, Preprocedure, For Age >69 or Low GFR. 1127 (Given - Provid er: Philippe Wong RN) Continuous Medication Order 03/13/2023 03/14/2023 03/15/2023 lactated Ringer's (LR) infusion 50 mL/hr, IntraVENous, Continuous, Starting on Sat03/15/23 at 1115, Preprocedure, Upon admission to sameday - please start iv if patient does not have iv access. Use 500ml NS for patients on dialysis. 1127 (New Bag - Prov ider: Philippe Wong RN)1349 (Paused - Provider: Fabiano Izaguirre CRNA - Comment: Switch to gravity)1350 (New Bag - Provider: Fabiano Izaguirre CRNA)1401 (Stopped - Provider: Fabiano Izaguirre CRNA) PRN Medication Order 03/13/2023 03/14/2023 03/15/2023 ALPRAZolam (Xanax) disintegrating tablet 0.25 mg 0.25 mg, Oral, PRN, anxiety, Starting on Sat03/15/23 at 1112, Preprocedure 1126 (Given - Provid er: Philippe Wong RN) iopamidol (Isovue-300) 61 % injection (CANCELED) As needed, Starting on Sat03/15/23 at 1403, Intraprocedure 1403 (Given - Provid er: Wilmar Cristobal MD) sterile water irrigation solution (CANCELED) As needed, Starting on Sat03/15/23 at 1403, Intraprocedure 1403 (Given - Provid er: Wilmar Cristobal MD) Scheduled Medication Order 03/27/2023 03/28/2023 03/29/2023 acetaminophen (Tylenol) tablet 1,000 mg (COMPLETED) 1,000 mg, Oral, Once, On Sat03/29/23 at 0715, For 1 dose, Preprocedure, Maximum dose of acetaminophen is 4000 mg from all sources in 24 hours. Do not administer if patient has taken tylenol <4 hours earlier. Do not give if contraindicated ie. patient has active liver disease or cirrhosis. 07 (Given - Provid er: Kayce Waldron RN) ceFAZolin in dextrose 4% (Ancef) IVPB 2,000 mg (COMPLETED) 2,000 mg, IntraVENous, Administer over 30 Minutes, Once, On Sat03/29/23 at 0715, For 1 dose, Preprocedure, Administer 60 minutes prior to surgery. premix bag, Suspected Indication (Select all that apply): Surgical Prophylaxis 08 (Given - Provid er: Julio Lobato CRNA)0908 (Anesthesia Volume Adjustment - Provider: Julio Lobato CRNA) famotidine (Pepcid) tablet 20 mg (COMPLETED) 20 mg, Oral, Once, On Sat03/29/23 at 0715, For 1 dose, Preprocedure 0719 (Given - Provid er: Kayce Waldron RN) gabapentin (Neurontin) capsule 100 mg (COMPLETED) 100 mg, Oral, Once, On Sat03/29/23 at 0715, For 1 dose, Preprocedure, For Age >69 or Low GFR. 07 (Given - Provid er: Kayce Waldron RN) sodium chloride 0.9% (NS) flush 10 mL 10 mL, IntraVENous, Every 12 hours scheduled (2 times per day), First dose on Sat03/29/23 at 0900, Preprocedure 0900 (Canceled Entry - Provider: Automatic Discharge Provider - Comment: Automatically canceled at discontinue of medication order) sodium chloride 0.9% (NS) flush 5-40 mL 5-40 mL, IntraVENous, Every 12 hours, First dose on Sat03/29/23 at 0715, Preprocedure, For Line Patency: Peripheral IV = 5 mL; Midline or Central Line = 10 mL/lumen. If following IV push medication, administer flush at same rate as the IV push. Flush volume is determined by type of infusion therapy being given. For non-viscous solutions use: Peripheral IV = 5 mL Midline or Central Line = 10 mL/lumen For viscous solutions (i.e. blood components, parenteral nutrition, contrast media, or after obtaining blood sample) use: Peripheral IV = 10 mL Midline or Central Line = 20 mL/lumen 0715 (Canceled Entry - Provider: Automatic Discharge Provider - Comment: Automatically canceled at discontinue of medication order) Continuous Medication Order 03/27/2023 03/28/2023 03/29/2023 lactated Ringer's (LR) infusion 50 mL/hr, IntraVENous, Continuous, Starting on Sat03/29/23 at 0715, Preprocedure, Upon admission to sameday - please start iv if patient does not have iv access. Use 500ml NS for patients on dialysis. 718 (New Bag - Prov ider: Kayce Waldron RN)0822 (Continued by Anesthesia - Provider: Julio Lobato CRNA)0908 (Anesthesia Volume Adjustment - Provider: Julio Lobato CRNA) PRN Medication Order 03/27/2023 03/28/2023 03/29/2023 ALPRAZolam (Xanax) disintegrating tablet 0.25 mg (COMPLETED) 0.25 mg, Oral, PRN, anxiety, Starting on Sat03/29/23 at 0703, For 1 dose, Preprocedure, Using dry hands, place tablet on top of tongue and allow to disintegrate. Administration with water is not necessary. 0719 (Given - Provid er: Kayce Waldron RN) iopamidol (Isovue-300) 61 % injection (CANCELED) As needed, Starting on Sat03/29/23 at 0838, Intraprocedure 0838 (Given - Provid er: Wilmar Cristobal MD) sodium chloride 0.9 % infusion 5-250 mL/hr, IntraVENous, PRN, if patient receiving piggyback infusions and maintenance fluids are not ordered OR KVO fluids to protect IV site / prevent frequent line interruptions / long duration, Starting on Sat03/29/23 at 0703, Preprocedure, For piggyback infusion, administer at same rate as piggyback for a total of 25 mL. Enter 25 mL into dose field and piggyback rate into rate field of order. If piggyback is infusing at a rate less than 100 mL/hr, enter 25 mL into dose field and 100 mL/hr into rate field of order. For KVO fluids, enter rate of 20 mL/hr or less into rate field of order. sodium chloride 0.9 % infusion 5-250 mL/hr, IntraVENous, PRN, if patient receiving piggyback infusions and maintenance fluids are not ordered OR KVO fluids to protect IV site / prevent frequent line interruptions/ long duration, Starting on Sat03/29/23 at 0703, Preprocedure, For piggyback infusion, administer at same rate as piggyback for a total of 25 mL. Enter 25 mL into dose field and piggyback rate into rate field of order. If piggyback is infusing at a rate less than 100 mL/hr, enter 25 mL into dose field and 100 mL/hr into rate field of order. For KVO fluids, enter rate of 20 mL/hr or less into rate field of order. sodium chloride 0.9 % irrigation solution (CANCELED) As needed, Starting on Sat03/29/23 at 0816, Intraprocedure 0816 (Given - Provid er: Wilmar Cristobal MD) sodium chloride 0.9% (NS) flush 10 mL 10 mL, IntraVENous, PRN, line care, Starting on Sat03/29/23 at 0703, Preprocedure, After every IV line use sodium chloride 0.9% (NS) flush 5-40 mL 5-40 mL, IntraVENous, PRN, line care, After every IV line use, Starting on Sat03/29/23 at 0703, Preprocedure, For Line Patency: Peripheral IV = 5 mL; Midline or Central Line = 10 mL/lumen. If following IV push medication, administer flush at same rate as the IV push. Flush volume is determined by type of infusion therapy being given. For non-viscous solutions use: Peripheral IV = 5 mL Midline or Central Line = 10 mL/lumen For viscous solutions (i.e. blood components, parenteral nutrition, contrast media, or after obtaining blood sample) use: Peripheral IV = 10 mL Midline or Central Line = 20 mL/lumen sterile water irrigation solution (CANCELED) As needed, Starting on Sat03/29/23 at 0816, Intraprocedure 0816 (Given - Provid er: Wilmar Cristobal MD) Scheduled Medication Order 04/16/2023 04/17/2023 04/18/2023 cefTRIAXone (Rocephin) 1,000 mg in sodium chloride 0.9 % 50 mL IVPB Mini-Bag Plus (COMPLETED) 1,000 mg, IntraVENous, at 100 mL/hr, Administer over 30 Minutes, Once, On Leida 04/18/23 at 2049, For 1 dose, Mini-Bag Plus bag, Suspected Indication (Select all that apply): Urinary Tract Infection 2108 (New Bag - Prov ider: Kathleen Gonzalez RN)2208 (Stopped - Provider: Kathleen Gonzalez RN) HYDROmorphone (Dilaudid) injection 1 mg (COMPLETED) 1 mg, IntraVENous, Once, On Leida 04/18/23 at 2019, For 1 dose, If oral and IV narcotics ordered, use oral first and only use IV if oral is ineffective or cannot take oral. Do Not give oral and IV within 1 hour of each other unless specifically ordered. 2025 (Given - Provid er: Reza Donnelly RN) ketorolac (Toradol) injection 15 mg (COMPLETED) 15 mg, IntraVENous, Once, On Leida 04/18/23 at 2210, For 1 dose 2210 (Given - Provid er: Kathleen Gonzalez RN) sodium chloride 0.9 % bolus 1,000 mL (COMPLETED) 1,000 mL, IntraVENous, at 1,000 mL/hr, Administer over 1 Hours, Once, On Leida 04/18/23 at 2020, For 1 dose 2021 (New Bag - Prov ider: Alma Delia Hawkins LPN)2209 (Stopped - Provider: Kathleen Gonzalez RN) Scheduled Medication Order 08/28/2023 08/29/2023 08/30/2023 sodium chloride 0.9 % bolus 1,000 mL (COMPLETED) 1,000 mL, IntraVENous, at 1,000 mL/hr, Administer over 1 Hours, Once, On Sat08/30/23 at 0820, For 1 dose 0820 (New Bag - Prov ider: Gabino Beaver RN)0920 (Stopped - Provider: Gabino Beaver RN) Source Comments (unrecognize d section and content) In the event this informatio n is protected by the Federal Confidentiality of Alcohol and Drug Abuse Patient Records regulations: The Federal rules restrict any use of the information to criminally investigate or prosecute any alcohol or drug abuse patient.[facility] the event this information is protected by the Federal Confidentiality of Alcohol and Drug Abuse Patient Records regulations: The Federal rules restrict any use of the information to criminally investigate or prosecute any alcohol or drug abuse patient.[facility] the event this information is protected by the Federal Confidentiality of Alcohol and Drug Abuse Patient Records regulations: The Federal rules restrict any use of the information to criminally investigate or prosecute any alcohol or drug abuse patient.[facility] the event this information is protected by the Federal Confidentiality of Alcohol and Drug Abuse Patient Records regulations: The Federal rules restrict any use of the information to criminally investigate or prosecute any alcohol or drug abuse patient.[facility]In the event this information is protected by the Federal Confidentiality of Alcohol and Drug Abuse Patient Records regulations: The Federal rules restrict any use of the information to criminally investigate or prosecute any alcohol or drug abuse patient.[facility]In the event this information is protected by the Federal Confidentiality of Alcohol and Drug Abuse Patient Records regulations: The Federal rules restrict any use of the information to criminally investigate or prosecute any alcohol or drug abuse patient.[facility] DaytonIn the event this information is protected by the Federal Confidentiality of Alcohol and Drug Abuse Patient Records regulations: The Federal rules restrict any use of the information to criminally investigate or prosecute any alcohol or drug abuse patient.[facility]In the event this information is protected by the Federal Confidentiality of Alcohol and Drug Abuse Patient Records regulations: The Federal rules restrict any use of the information to criminally investigate or prosecute any alcohol or drug abuse patient.[facility]In the event this information is protected by the Federal Confidentiality of Alcohol and Drug Abuse Patient Records regulations: The Federal rules restrict any use of the information to criminally investigate or prosecute any alcohol or drug abuse patient.[facility]In the event this information is protected by the Federal Confidentiality of Alcohol and Drug Abuse Patient Records regulations: The Federal rules restrict any use of the information to criminally investigate or prosecute any alcohol or drug abuse patient.[facility]In the event this information is protected by the Federal Confidentiality of Alcohol and Drug Abuse Patient Records regulations: The Federal rules restrict any use of the information to criminally investigate or prosecute any alcohol or drug abuse patient.[facility] Care Teams (unrecognized sec tion and content) [employer] Relationship Specialty Start Date End Date Jojo Cordova APRN.CNP, DNP [address] [place] [address] PCP - General Family Practice 04/17/21 [employer] Relationship Specialty Start Date End Date Jojo Cordova APRN.CNP, DNP [facility] [place] [address] PCP - General Family Practice 04/17/21 [employer] Relationship Specialty Start Date End Date Jojo Cordova APRN.CNP, DNP [address] [place] [address] PCP - General Family Practice 04/17/21 [employer] Relationship Specialty Start Date End Date Jojo Cordova APRN.CNP, DNP [address] [place] [address] PCP - General Family Practice 04/17/21 [employer] Relationship Specialty Start Date End Date Jojo Cordova APRN.CNP, DNP [address] [place] [address] PCP - General Family Practice 04/17/21 [employer] Relationship Specialty Start Date End Date Jojo Cordova, DEVELOPMENT ADVISOR.ASSIGNMENT CLERK, DNP [address] [place] [address] PCP - General Family Practice 04/17/21 [employer] Relationship Specialty Start Date End Date Jonathan Martínez, DO [address] [place] [address] PCP - General Family Medicine 07/04/22 [employer] Relationship Specialty Start Date End Date Jonathan Martínez, DO [address] [place] [address] PCP - General Family Medicine 07/04/22 [employer] Relationship Specialty Start Date End Date Jonathan Martínez, DO [address] [place] [address] PCP - General Family Medicine 07/04/22 [employer] Relationship Specialty Start Date End Date Jonathan Martínez, DO [address] [place] [address] PCP - General Family Medicine 07/05/22 [employer] Relationship Specialty Start Date End Date Jonathan Martínez, DO [address] [place] [address] PCP - General Family Medicine 07/05/22 Park [employer] Relationship Specialty Start Date End Date Jonathan Martínez, DO [address] [place] [address] PCP - General Family Medicine 07/05/22 Park [employer] Relationship Specialty Start Date End Date Jonathan Martínez, DO [address] [place] [address] PCP - General Family Medicine 07/05/22 [employer] Relationship Specialty Start Date End Date Mauricio Jonathan Cameron [address] [place], [place] [id number] PCP - General Family Medicine 07/05/22 [employer] Relationship Specialty Start Date End Date Mauricio Jonathan CameronDO [address] [place] [address] PCP - General Family Medicine 07/05/22 [employer] Relationship Specialty Start Date End Date Mauricio Jonathan Cameron [address] [place] [address] PCP - General Family Medicine 07/05/22 Wilmar Cristobal MD [address] [place] [address] Surgeon Urology 03/15/23 [employer] Relationship Specialty Start Date End Date Mauricio Jonathan CameronDO [address] [place] [address] PCP - General Family Medicine 07/05/22 Wilmar Cristobal MD [address] [place] [address] Surgeon Urology 03/15/23 [employer] Relationship Specialty Start Date End Date Mauricio Jonathan CameronDO [address] [place] [address] PCP - General Family Medicine 07/05/22 Wilmar Cristobal MD [address] [place] [address] Surgeon Urology 03/15/23 [employer] Relationship Specialty Start Date End Date Jonathan Martínez DO [address] [place] [address] PCP - General Family Medicine 07/05/22 Wilmar Cristobal MD [address] [place] [address] Surgeon Urology 03/15/23 [employer] Relationship Specialty Start Date End Date Jonathan Martínez DO [address] [place] [address] PCP - General Family Medicine 07/05/22 Wilmar Cristobal MD [address] [place] [address] Surgeon Urology 03/15/23 [employer] Relationship Specialty Start Date End Date Jonathan Martínez DO [address] [place] [address] PCP - General Family Medicine 07/05/22 Wilmar Cristobal MD [address] [place] [address] Surgeon Urology 03/15/23 [employer] Relationship Specialty Start Date End Date Jonathan Martínez DO [address] [place] [address] PCP - General Family Medicine 07/05/22 Wilmar Cristobal MD [address] [place] [address] Surgeon Urology 03/15/23 Helder Ruiz MD [address] [place] [address] Surgeon Urology 04/19/23 [employer] Relationship Specialty Start Date End Date Devin Bernal MD [facility] [address] [place], [place] [id number] PCP - General Family Medicine 07/02/23 Wilmar Cristobal MD [address] [place] [address]. [address] [place] [address] Surgeon Urology 03/15/23 Helder Ruiz MD [address] [place] [address] [address] [place] [address] Surgeon Urology 04/19/23 [employer] Relationship Specialty Start Date End Date Devin Bernal MD [facility] [place] [address] PCP - General Family Medicine 07/02/23 Wilmar Cristobal MD [address] [place] [address] [address] [place] [address] Surgeon Urology 03/15/23 Helder Ruiz MD [address] [place] [address] [address] [place] [address] Surgeon Urology 04/19/23 [employer] Relationship Specialty Start Date End Date Devin Bernal MD [facility] [place] [address] PCP - General Family Medicine 07/02/23 Wilmar Cristobal MD [address] [place] [address]. [address] [place] [address] Surgeon Urology 03/15/23 Helder Ruiz MD [address] [place] [phone] Surgeon Urology 04/19/23 [employer] Relationship Specialty Start Date End Date Devin Bernal MD [facility] [address] [place], [place] [id number] PCP - General Family Medicine 07/02/23 Wilmar Cristobal MD [address] [place] [address] Surgeon Urology 03/15/23 Helder Ruiz MD [address] [place] [phone] Surgeon Urology 04/19/23 [employer] Relationship Specialty Start Date End Date Devin Bernal MD [facility] [place] [id number] PCP - General Family Medicine 07/02/23 Wilmar Cristobal MD [address] [place] [address] Surgeon Urology 03/15/23 Helder Ruiz MD [address] [place] [address] Surgeon Urology 04/19/23 [employer] Relationship Specialty Start Date End Date Devin Bernal MD [facility] [address] PCP - General Family Medicine 07/02/23 Wilmar Cristobal MD [address] [place] [address] Surgeon Urology 03/15/23 Helder Ruiz MD [address] [place] [address] Surgeon Urology 04/19/23 [employer] Relationship Specialty Start Date End Date Devin Bernal MD [facility] [address] [place], [place] [id number] PCP - General Family Medicine 07/02/23 Wilmar Crist[address] MD [address] [place] [address] Surgeon Urology 03/15/[address] Ruiz MD [address] [place] [address] Surgeon Urology 04/19/23 [employer] Relationship Specialty Start Date End Date Devin Bernal MD [address] [place] [address] [place] [address] PCP - General Family Medicine 07/02/23 Wilmar Cristobal MD [address] [place] [address] Surgeon Urology 03/15/23 Helder Ruiz MD [address] [place] [address] Surgeon Urology 04/19/23 [employer] Relationship Specialty Start Date End Date Devin Bernal MD [address] [place] [address] [place] [address] PCP - General Family Medicine 07/02/23 Wilmar Cristobal MD [address] [place] [address] Surgeon Urology 03/15/23 Helder Ruiz MD [address] [place] [phone] Surgeon Urology 04/19/23 [employer] Relationship Specialty Start Date End Date Devin Bernal MD [address] [place] [address] [place] [address] PCP - General Family Medicine 07/02/23 Wilmar Cristobal MD [address] [place] [address] Surgeon Urology 03/15/23 Helder Ruiz MD [address] [place] [address] Surgeon Urology 04/19/23 [employer] Relationship Specialty Start Date End Date Devin Bernal MD [address] [place] [address] [place] [address] PCP - General Family Medicine 07/02/23 Wilmar Cristobal MD [address] [place] [address] Surgeon Urology 03/15/23 Helder Ruiz MD [address] [place] [address] Surgeon Urology 04/19/23 [employer] Relationship Specialty Start Date End Date Devin Bernal MD [address] [facility] [address] [facility] [id number] PCP - General Family Medicine 07/02/23 Wilmar Cristobal MD [address] [place] [address] Surgeon Urology 03/15/23 Helder Ruiz MD [address] [place] [address] Surgeon Urology 04/19/23 [employer] Relationship Specialty Start Date End Date Devin Bernal MD [facility] [place] [id number] PCP - General Family Medicine 07/02/23 Wilmar Cristobal MD [address] [place] [address] Surgeon Urology 03/15/23 Helder Ruiz MD [address] [place] [address] Surgeon Urology 04/19/23 [employer] Relationship Specialty Start Date End Date Devin Bernal MD [address] [facility] [address] [place] [address] PCP - General Family Medicine 07/02/23 Wilmar Cristobal MD [address] [place] [address] Surgeon Urology 03/15/23 Helder Ruiz MD [address] [place] [address] Surgeon Urology 04/19/23 [employer] Relationship Specialty Start Date End Date Devin Bernal MD [address] [facility] [address] [facility] [place] [id number] PCP - General Family Medicine 07/02/23 Wilmar Cristobal MD [address] [place] [address] Surgeon Urology 03/15/[address] [place] [address] Surgeon Urology 04/19/23 [employer] Relationship Specialty Start Date End Date Devin Bernal MD [facility] [address] PCP - General Family Medicine 07/02/23 Wilmar Cristobal MD [address] [place] [address] Surgeon Urology 03/15/23 Helder Ruiz MD [address] [place] [address] [address] [place] [address] Surgeon Urology 04/19/23 [employer] Relationship Specialty Start Date End Date Devin Bernal MD [facility] [address] PCP - General Family Medicine 07/02/23 Wilmar Cristobal MD [address] [place] [address] Surgeon Urology 03/15/23 Helder Ruiz MD [address] [facility] [address] [place] [address] Surgeon Urology 04/19/23 [employer] Relationship Specialty Start Date End Date Jojo Cordova APRN.ASSIGNMENT CLERK, DNP [address] [place], [place] [address] PCP - General Family Medicine 04/17/21 03/21/23 [employer] Relationship Specialty Start Date End Date Jojo Cordova APRN.ANYA, DNP [address] [place], [place] [address] PCP - General Family Medicine 04/17/21 03/21/23 [employer] Relationship Specialty Start Date End Date Matheus Gutierrez III, MD PCP - General Family Medicine 12/01/14 04/16/21 [employer] Relationship Specialty Start Date End Date Jonathan Martínez PCP - General Family Medicine 03/22/23 [employer] Relationship Specialty Start Date End Date Jonathan Martínez, DO [address] [place] [address] PCP - General Family Medicine 07/05/22 [employer] Relationship Specialty Start Date End Date Jonathan Martínez, DO [address] [place] [address] PCP - General Family Medicine 07/05/22 [employer] Relationship Specialty Start Date End Date Jonathan Martínez, DO [address] [place] [address] PCP - General Family Medicine 07/05/22 [employer] Relationship Specialty Start Date End Date Jonathan Martínez, DO [address] [place] [address] PCP - General Family Medicine 07/05/22 [employer] Relationship Specialty Start Date End Date Jonathan Martínez, DO [address] [place] [address] PCP - General Family Medicine 07/05/22 Team Status: Active Member Role Status Dates No Primary Care Physician Primary Care Provider Active Team Status: Inactive Member Role Status Dates Dr. Jane Raymundo DO Attending Provider Active Start: September 06, 2024 End: September 07, 2024 Dr. Jane Raymundo DO Emergency Provider Active Start: September 06, 2024 End: September 07, 2024 No Primary Care Physician Primary Care Provider Active Start: September 06, 2024 End: September 07, 2024 Team Status: Inactive Member Role Status Dates No Primary Care Physician Primary Care Provider Active Start: December 07, 2024 End: December 07, 2024 Dr. Damaso Swift DPM Attending Provider Active Start: December 07, 2024 End: December 07, 2024 Dr. Damaso Swift DPM Referring Provider Active Start: December 07, 2024 End: December 07, 2024 Team Status: Active Member Role Status Dates MARJORIE Mi Primary Care Provider Active Team Status: Inactive Member Role Status Dates No Primary Care Physician Primary Care Provider Active Start: January 27, 2025 End: January 27, 2025 Dr. Damaso Swift DPM Attending Provider Active Start: January 27, 2025 End: January 27, 2025 Dr. Damaso Swift DPM Referring Provider Active Start: January 27, 2025 End: January 27, 2025 Team Status: Inactive Member Role Status Dates MARJORIE Mi Primary Care Provider Active Start: February 22, 2025 End: February 22, 2025 MARJORIE Mi Attending Provider Active Start: February 22, 2025 End: February 22, 2025 Team Status: Inactive Member Role Status Dates MARJORIE Mi Primary Care Provider Active Start: March 03, 2025 End: March 03, 2025 Dr. Madan Jeter , DO Emergency Provider Active Start: March 03, 2025 End: March 03, 2025 Goals (unrecognized section and content) Goals may be documented in a n alternate section FOR RECORDS PERTAINING TO PATIENTS WHO ARE OR HAVE BEEN ENROLLED IN A CHEMICAL DEPENDENCY/SUBSTANCEABUSE PROGRAM, SOME INFORMATION MAY BE OMITTED. This clinical summary was aggregated from multiple sources. Caution should be exercised in using it in the provision of clinical care. This summary normalizes information from multiple sources, and as a consequence, information in this document may materially change the coding, format and clinical context of patient data. In addition, data may be omitted in some cases. CLINICAL DECISIONS SHOULD BE BASED ON THE PRIMARY CLINICAL RECORDS. [facility] [employer] provides no warranty or guarantee of the accuracy or completeness of information in this document.
[2025-03-05 06:24] LABS: Internal QC Validated? YES +Cl - CLEAR BKGD; Pregnancy, Urine Negative Negative; Record Kit Lot#,Urine Preg 947241
--- NOTE | 2025-03-05 07:13 | PCM.DC ---
Discharge Instructions Diet Discharge Diet: Light diet - advance as tolerated DC O2, CPAP, BIPAP needs Home O2 Discharge instructions: No Dressing / Incision Discharge Activity: Use Crutches Weight Bearing Status: No weight bearing (No weightbearing left foot) Keep extremity elevated above heart level: Operative Extremity (Keep left foot elevated for at least 50 minutes of every hour) Dressing / Incision Call your doctor if your incision/area has: Foul Smelling Discharge Call your doctor if you observe: Fever of 101 or Higher, Shortness of breath, Chest pain, Calf discomfort and Uncontrolled pain Change Dressing in: do not change dressing Remove Dressing in: do not remove dressing Cleanse incision/area with: Do not get Incision Wet and Keep Dressing Clean & Dry Follow Up Care Please Follow Up With: Damaso Swift DPM When: 1 week in office, sooner if needed. Call Dr. Swift over weekend if needed: [phone] Test Results: Test results from this visit will be discussed in further detail at your follow-up appointment, if applicable. Discharge Plan Admission Attending Provider: Damaso Swift Primary Care Provider: Comfort Pantoja Instructions Print Language: Martiniquais Discharge Orders/Prescriptions Prescriptions: New hydrocodone-acetaminophen 5-325 mg tablet 1 - 2 tab PO Q6H PRN (Reason: pain) 3 Days Qty: 24 0RF Eliquis 2.5 mg tablet 2.5 mg PO Q12H Qty: 30 0RF Continued acyclovir [Zovirax] 400 MG tablet 400 mg PO BID lisinopril 10 mg tablet 10 mg PO DAILY Discontinued ibuprofen 600 mg tablet 600 mg PO Q8H PRN PRN (Reason: pain) Referrals / Follow Up: Comfort Pantoja NP-C [Primary Care Provider] - Disposition Disposition (needs filled in before D/C Order can be placed): Home, Self Care
--- NOTE | 2025-03-05 07:17 | PRE.ANES_ITS ---
ASA Classification* ASA Classification ASA Classification: 2 Assessment & Plan Anesthesia* Anesthesia Assessment Anesthesia Assessment: Discussed sedation and/or anesthesia options, risks, benefits, and alternatives with patient/parents/legal guardian/POA. Questions invited. The patient/parents/legal guardian/POA seems to understand and agrees to proceed with anesthesia plan. Reviewed the physical assessment, medical history, allergy history and patient home medications list prior to surgery/procedure/anesthetic and documented any changes. Performed airway and anesthesia risk assessments. Anesthesia Type Anesthesia Type: General History Source History Obtained from:: Patient and Chart Anesthesia Focused Assessment* Temperature: 97.7 F Pulse Rate: 71 Blood Pressure: 140/100 Respiratory Rate: 18 Pulse Ox: 100 Oxygen Delivery Method: Room Air Airway Assessment Mouth opens: >3 cm Mallampati Score: II Teeth Condition: Missing (Patient has multiple missing teeth. Rest are tight.) Labs Anesthesia Preop lab: CBC WBC 10.2 K/mm3 (4.4-11.0) 03/03/25 09:10 03/03/25 RBC 4.57 M/mm3 (4.2-5.4) 03/03/25 09:10 03/03/25 Hgb 14.4 g/dL (12.0-15.0) 03/03/25 09:10 03/03/25 Hct 41.4 % (37-47) 03/03/25 09:10 03/03/25 Plt Count 310 K/mm3 (150-450) 03/03/25 09:10 03/03/25 CHEMISTRY Potassium 4.1 mmol/L (3.3-5.1) 03/03/25 09:10 03/03/25 Sodium 138 mmol/L (133-145) 03/03/25 09:10 03/03/25 BUN 12 mg/dL (4-19) 03/03/25 09:10 03/03/25 Creatinine 0.81 mg/dL (0.70-1.20) 03/03/25 09:10 03/03/25 Glucose 107 mg/dL (70-99) H 03/03/25 09:10 03/03/25 POC Glucose 147 mg/dL (70-110) H 10/21/14 00:00 10/21/14 COAG PT 13.7 SECONDS (11.7-14.9) 11/22/17 23:20 Urine Test Negative Negative 03/05/25 06:10 03/05/25 Pre-Assessment Diagnosis/Proposed Procedure Planned Operative Procedure(s): DEBRIDEMENT AND REPAIR OF THE LEFT ACHILLES TENDON REATTACHED Anesthesia History Anesthesia History - cafeteria helper: Anesthesia History - cafeteria helper Hx Hospitalization No 02/23/25 11:12 Any Problems With Anesthesia No 02/23/25 11:12 Cholinesterase deficiency No 02/23/25 11:12 You/Your Family Experience No 02/23/25 11:12 fever (hyperthermia) with Relationship Recent Exposure to Contagious No 03/05/25 06:15 Disease Does patient have nerve No 02/23/25 11:12 stimulator Patient instructed to have device shut off --Does patient have Pacemaker No 03/05/25 06:15 or ICD? When Was Last Pacemaker Check QUESTION #4 FULL TEXT: You/Your Family Experience fever (hyperthermia) with Anesthesia Last Oral Intake Last Oral intake: Last Oral Intake NPO since 19:30 03/05/25 06:15 Meds taken in AM with sips of No 03/05/25 06:15 water? Meds patient instructed to take am of surgery PONV PONV - cafeteria helper: PONV - cafeteria helper Female Yes 02/23/25 11:12 HX of Motion Sickness No 02/23/25 11:12 HX of N/V After Surgery No 02/23/25 11:12 Non-Smoker No 02/23/25 11:12 Duration of Surgery greater Yes 02/23/25 11:12 than 60 minutes Number of Risk Factors 2 02/23/25 11:12 PONV Score Moderate Risk 02/23/25 11:12 Height & Weight Height & Weight: Anesthesia: Height & Weight Height 5 ft 5 in 03/05/25 06:15 Weight: 93.4 kg 03/05/25 06:15 Body Mass Index (BMI) 34.2 03/05/25 06:15 Respiratory Assessment Respiratory Assessment - cafeteria helper: Respiratory Tract Infection Hx - cafeteria helper Hx Respiratory Tract Infection No 02/23/25 11:12 STOP Sleep Apnea STOP Sleep Apnea - cafeteria helper: STOP Sleep Apnea - cafeteria helper Hx Hypertension Yes: STARTED ON LISINOPIL 02/23/25 11:12 06/10 Hx Sleep Apnea No 02/23/25 11:12 CPAP BIPAP Do you snore loudly (louder No 02/23/25 11:12 than talking or can be heard Do you often feel tired/ No 02/23/25 11:12 fatigued/ sleepy during daytime? Has anyone observed you stop No 02/23/25 11:12 breathing during sleep? STOP Results Negative 02/23/25 11:12 QUESTION #5 FULL TEXT : Do you snore loudly (louder than talking or can be heard through closed doors)? Tobacco Use History Tobacco Use History - cafeteria helper: Tobacco Use History - cafeteria helper Tobacco Use Smoking Status Current every day smoker 03/03/25 08:58 Hx Tobacco Use No 02/23/25 11:12 Years Smoking Packs Smoked per Day Smoking Cessation Date was within the last 15 years Hx Smoking Cessation Date Hx Smoking Cessation No 03/03/25 08:56 Counseling Any additional information?: Yes Tobacco Use: Vapor (Patient did not vape today.) Hematologic Medial History Hematologic Hx - cafeteria helper: Hematologic Medical Hx - needle straightener Hx of Blood Transfusion No 02/23/25 11:12 Hx of Transfusion in last 3 No 02/23/25 11:12 Months Date of Last Transfusion (if within last 3 months) Ever experience any problems No 02/23/25 11:12 with transfusion(s)? Specify any problems Hx of Preganancy in last 3 No 02/23/25 11:12 Months Nurse Filling Out Transfusion DSCHRIBER 02/23/25 11:12 & Questions: Date: 02/23/25 02/23/25 11:12 Time: 11:14 02/23/25 11:12 Patient unable to answer at this time (ie. confused, unrespo /Reproduction History /Reproductive History - cafeteria helper: /Reproductive Hx- cafeteria helper Hx Now No 02/23/25 11:12 Gestational Age (in weeks): EDC: Hx Hx Para Hx Section SAB No 03/03/25 07:51 Active Medications Active Medications: Current Medications Generic Name Dose Route Start Last Admin Trade Name Freq PRN Reason Stop Dose Admin Cefazolin Sodium 2 gm/ Sodium 110 mls @ 200 mls/hr 03/05/25 07:30 Chloride IV 03/05/25 08:02 INTRAOP ONE Lactated Ringer's 1,000 mls @ 15 mls/hr 03/05/25 06:00 IV .Q48H [facility] PFSH Medical History Wears glasses Depression Anxiety Substance abuse Restless legs Migraine headache Seizures Vapes nicotine containing substance History of pain when walking History of edema Hypertension Home Medications ?Medication ?Instructions ?Recorded ?Last Taken ?Type acyclovir 400 mg tablet (Zovirax) 400 mg PO BID 03/04/25 History ibuprofen 600 mg tablet 600 mg PO Q8H PRN PRN pain 0 02/23/25 Unknown History lisinopril 10 mg tablet 10 mg PO DAILY 02/23/2502/14 History Allergy/AdvReac Type Severity Reaction Status Date / Time vaccine adjuvant emulsion Allergy Severe ALMOST Verified 03/05/25 06:26 [id number] raspberry Allergy Hives Verified 03/05/25 06:26 Surgical History Hx of wisdom tooth extraction Hx of umbilical hernia repair Hx laparoscopic cholecystectomy Social History Smoking Status: Current every day smoker tobacco type: e-cigarettes alcohol intake: current alcohol intake frequency: holidays/special occasions only Review of Systems (Anesthesia) ROS Narrative System reviewed and no additional complaints, except as documented.
--- NOTE | 2025-03-05 07:30 | RAD_ITS ---
EXAM: XR Left Foot, 2 Views CLINICAL INDICATION: DEBRID AND REPAIR OF ACHILLES TENDON TECHNIQUE: Frontal and lateral views of the left foot. COMPARISON: No relevant prior studies available. FINDINGS: BONES/JOINTS: Unremarkable. No acute fracture. No dislocation. SOFT TISSUES: Unremarkable. No radiopaque foreign body. OTHER FINDINGS: Fluoroscopic guidance spot image were used intraoperatively. Total fluoroscopy time was 43 seconds. Total radiation dose was 0.3902 mGy. Total 16 images were obtained. RAD/Foot 2 Views IMPRESSION: Fluoroscopic guidance was used intraoperatively. Please refer to the operative note for further details. Reading Location: [id number]
--- NOTE | 2025-03-05 07:30 | BONBX_PTH ---
PATIENT: THEODORE VIVEROS LOC: [facility] [place] U#:[id number] AGE/SX: 34/F ROOM: RE03/05/[address]: Dr. Damaso Swift DPM : 1990 BED: DIS: 03/05/2025 SPEC #: [id number] RECD: 03/05/25 11:02 STATUS: JIGNESH RETom #: [id number] ELVIRA: 03/05/25 07:[address]: Damaso Swift DEPT: SURGICAL PATHOLOGY RECD BY: Sagar Chery ENTERED: 03/05/25 11:44 SP TYPE: Bone OTHR DR: Comfort Pantoja, [employer] REFINISHER-Tavo Tissues: A - Foot, NOS Procedures: Decalcification bone/plaque Surgery Specimen Level III HEADER OPERATION: Debridement and repair of left Achilles tendon PRE-OP DIAGNOSIS: Achilles tendinitis TISSUE SUBMITTED: A- Bone from calcaneus MICROSCOPIC DIAGNOSIS A. Bone, calcaneus, left, debridement: - Articular bone with reactive/degenerative changes and fatty marrow spaces. MICROSCOPIC DESCRIPTION Slides are reviewed. GROSS DESCRIPTION A. Received in formalin labeled with the patient's name and date of . Designated as bone from left calcaneus is a focally fragmented olivas-yellow to red eburnated portion of bone, 4.2 x 2.3 x 1.2 cm. Sectioning reveals olivas-yellow trabeculated medullary bone. Foundation Drill Operator Helper sections are submitted in 1 cassette, following decalcification. [place] 03/05/2025 CPT:05898,74011
[2025-03-05] MEDS: Cefazolin 2 GM in 0.9% Normal Saline (100mL Bag) 100 ML IV (07:45)
[2025-03-05] MEDS: Bupivacaine Mpf 0.5% 30 ML VIAL (08:00)
--- NOTE | 2025-03-05 09:37 | PCM.OPRPT ---
Operative Report (Standard) Operative Information Date of Procedure: 03/05/25 Pre-Operative Diagnosis: Retrocalcaneal exostosis, left Achilles tendinopathy, left Post-Operative Diagnosis: Same Surgery/Procedure Performed: Debridement and repair of the left achilles tendon with detachment and reattachment, resection of the retrocalcaneal spur, left transportation dispatcher: Yes Senior Database Engineer: Maryse Tasks completed by assistant superintendent: Opening & closing, Implanting device and Retracting Type of Anesthesia: General and Local RN Documented Start/Stop Times: Operation Date: 03/05/25 07:30 Case Time Into Pre-Op 03/05/25 05:57 Out of Pre-Op 03/05/25 07:32 Anesthesia Start 03/05/25 07:37 Into Room 03/05/25 07:37 Procedure Start 03/05/25 08:04 Procedure End 03/05/25 09:22 Anesthesia End 03/05/25 09:34 Out of Room 03/05/25 09:34 Into Recovery 03/05/25 09:37 Out of Recovery 03/05/25 10:45 Into Phase II Recovery 03/05/25 10:46 Out of Phase II 03/05/25 11:58 Procedure Start Time: 08:04 Procedure Stop Time: 09:22 Select all DRAINS/GRAFTS/IMPLANTS that apply: Implanted device Implanted device details: Franklin CitreFix x 4 Estimated Blood Loss: 2mL Specimen collected: Yes Description of specimen(s) removed: Resected bone from left calcaneus sent to pathology Description of surgery: Indications: This is a 34 year old female with chronic right heel pain, to the posterior calcaneus and achilles tendon despite extensive nonsurgical/conservative treatment. She continues to have pain and symptoms. She continues to have pain which was really bothering her and affecting her daily activities. Because symptoms persist, she has elected to undergo the surgical intervention. MRI was reviewed pre op. The procedures were discussed with her in great detail, reviewed the possible benefits vs risks and potential complications. Typical post op recovery was reviewed with her. The goals and the expectations were reviewed with her in detail. The consent forms were reviewed with her in detail, and she freely signed them. No guarantees or warranties were given or implied. All of her questions were answered. Operative Procedure: The patient was brought back into the operating room. A time out was performed and the patient was properly identified and the surgical plan was confirmed. The patient received 2g of IV Ancef for antibiotic prophylaxis. A well padded pneumatic tourniquet was applied around the right thigh. The patient received general per the anesthesiologist.? The patient was placed on the operating room table in the prone position, with good padding and offloading for all of the bony prominences. She was carefully secured to the operating room table with a safety belt around her waist. The right foot/ankle/leg were scrubbed, prepped, draped in the usual aseptic fashion. The right foot was elevated for 3 minutes and the thigh pneumatic tourniquet was inflated to 300mmHg. Attention was directed to the posterior heel. There was a palpable exostosis present at the level of the posterior calcaneus consistent with Chandni's deformity and retrocalcaneal exostosis, and achilles tendinosis was present as well. A total of 10mL of 0.5% Bupivacaine plain was given as a local nerve block around the posterior calcaneus. A linear incision was made using a 15 blade to the skin overlying the posterior achilles tendon, and also overlying the posterior calcaneus. Careful dissection was completed down through the subcutaneous tissue layer. The Achilles tendon was visualized and noted to have a small, partial-thickness tear of the distal Achilles tendon near the insertion point was noted. There was evidence of tendionsis distally as it connected to the posterior calcaneus with some evidence of degeneration locally, which was carefully debrided using a 15 blade and sent with resected bone as noted below. Next, the distal Achilles tendon was incised at the level of the distal midline and was partially reflected off of the central posterior calcaneus exposing the retrocalcaneal spur/exostosis and Chandni deformity. The retrocalcaneal spur and the Chandni deformity prominent and degenerative, they were then resected using a powered sagittal saw and a powered rasp, the resected bone was sent to pathology with debrided achilles tendinosis. Intraoperative fluoroscopy was obtained confirming proper resection of the spur/exostosis and Chandni deformity. The site was flushed out with copious amounts of normal saline solution. The Achilles tendon was noted to be viable and was reattached to the central portion of the posterior calcaneus using a total of 4 Franklin Citrefix anchors. 2 pest control pilot holes were created for the 4.5mm anchors at the level of 1 cm proximal to the distal insertion of the Achilles tendon and central to each half of the tendon. The two 4.5mm anchors were inserted. The suture was passed through the Achilles tendon on each side. The 2 distal holes were prepared on the posterior calcaneus distal to the insertion of the Achilles tendon with the drill. One suture tail from each of the proximal anchors were retrieved and passed through the 2 anchors. The tension was adjusted to the appropriate tension and the 4.5 mm anchors were inserted into the distal prepared bone sites. The suture tails were cut flush with the anchors. The anchors were flush with the bone and not prominent. The achilles tendon tear was repaired using interrupted 2-0 Vicryl sutures, completed independently of the bony resection to reinforce structural integrity. The midline achilles tendon incision was reapproximated using 2-0 Vicryl. There was excellent repair of the Achilles tendon, with negative Mcclendon test. The surgical site was flushed out with copious amounts of normal saline solution. The subcutaneous tissue layer was reapproximated using 3-0 Vicryl. the skin was reapproximated using 3-0 Nylon. The pneumatic tourniquet was deflated at 97 minutes, there was immediate return of warmth and perfusion to the foot and to all toes on the foot with normal temperature present. CFT < 2 seconds to all toes. A additional 9mL of 0.5% bupivacaine plain was given as a local nerve block around the posterior calcaneus and achilles tendon surgical site. A dressing was applied which consisted of Betadine soaked adaptic, 4x4 gauze, Kerlix and abbi bandage, and a well padded below the knee posterior splint with heel offloaded. The patient tolerated the above operative procedure well at the anesthesia well with no complication. The patient was transported to the recovery room with vital signs stable and in good condition. Post operative orders were placed. Post operative instructions were reviewed with her as well as with her mom who was present with her today. No weightbearing right foot, keep foot elevated for at least 50 minutes of every hour, keep dressing clean, dry and intact. Prescription for hydrocodone/acetaminophen 5/325mg was prescribed: 1-2 tabs PO q 6 hours PRN pain for pain control and Apixaban 2.5mg PO every 12 hours. She is going to follow up with me within 1 week or sooner if needed. Surgical Findings: As noted above Complications Complications: No
--- NOTE | 2025-03-05 09:41 | PCM.POST.ANE ---
Anesthesia: Postop Eval I Current Vital Signs Temperature: 97.5 F Pulse Rate: 69 Blood Pressure: 142/84 Respiratory Rate: 16 Pulse Ox: 99 Oxygen Delivery Method: Room Air Assessment Airway patent: Yes Spontaneous unlabored respirations: Yes Mental status: Awake and Calm nausea: No Vomiting: No Anesthesia Complication: No Fluid Hydration Crystalloid volume administer (ml): 1,100 Total IV fluid infused: 1,100 Progress Note Anesthesia document: Postop Eval 1 completed: Yes
--- NOTE | 2025-03-05 09:55 | RAD_ITS ---
PROCEDURE: FOOT MIN 3 VIEWS 03/05/2025 REASON FOR EXAM: POST OP PODIATRY SURGERY TECHNIQUE: FOOT MIN 3 VIEWS COMPARISON: Prior intraoperative fluoroscopic images. FINDINGS: The patient is status post resection of the posterior calcaneal spur with screw fixation. RAD/Foot min 3 Views IMPRESSION: Status post resection of the posterior calcaneal spur. Reading Location: [facility]
--- NOTE | 2025-03-05 15:46 | POSTOPAN2_ITS ---
Anesthesia Postop Eval I Sum Postop Eval Completion status Anesthesia document: Postop Eval 1 completed: Yes Anesthesia Postop Eval I Summary Anesthesia Postop Eval I Summary: Anesthesia Postop Eval I: Assessment Summary Airway patent Yes 03/05/25 09:43 [email or web address] Spontaneous unlabored Yes 03/05/25 09:43 DESKTOP [email or web address] [email or web address] respirations Mental status Awake,Calm 03/05/25 09:43 DESKTOP [email or web address] nausea No 03/05/25 09:43 DESKTOP SUPPORT [email or web address] Vomiting No 03/05/25 09:43 DESKTOP [email or web address] [email or web address] Anesthesia Postop Eval I: Fluid Summary Crystalloid volume administer 1,100 03/05/25 09:43 DESKTOP [email or web address] (ml) Colloids volume administered ( ml) Blood Product volume administered (ml) Total IV fluid infused 1,100 03/05/25 09:43 DESKTOP SUPPORT [email or web address] Anesthesia Postop Eval I: Summary Notes Anesthesia Complication No 03/05/25 09:43 DESKTOP [email or web address] Anesthesia Complication Comment: Post-operative progress note Anesthesia: Postop Eval II Evaluation Mental status: Awake Pain Level: 2 nausea: No Vomiting: No
--- NOTE | 2025-03-05 15:46 | PCM.POSTANE2 ---
Anesthesia Postop Eval I Sum Postop Eval Completion status Anesthesia document: Postop Eval 1 completed: Yes Anesthesia Postop Eval I Summary Anesthesia Postop Eval I Summary: Anesthesia Postop Eval I: Assessment Summary Airway patent Yes 03/05/25 09:43 [email or web address] Spontaneous unlabored Yes 03/05/25 09:43 TRANSFORMATION [email or web address] respirations Mental status Awake,Calm 03/05/25 09:43 TRANSFORMATION [email or web address] nausea No 03/05/25 09:43 TRANSFORMATION [email or web address] Vomiting No 03/05/25 09:43 TRANSFORMATION [email or web address] Anesthesia Postop Eval I: Fluid Summary Crystalloid volume administer 1,100 03/05/25 09:43 TRANSFORMATION [email or web address] (ml) Colloids volume administered ( ml) Blood Product volume administered (ml) Total IV fluid infused 1,100 03/05/25 09:43 TRANSFORMATION [email or web address] Anesthesia Postop Eval I: Summary Notes Anesthesia Complication No 03/05/25 09:43 TRANSFORMATION [email or web address] Anesthesia Complication Comment: Post-operative progress note Anesthesia: Postop Eval II Evaluation Mental status: Awake Pain Level: 2 nausea: No Vomiting: No
--- NOTE | 2025-04-19 12:03 | PCM.HP.STD ---
HPI - General HPI Narrative THEODORE ORTIZ is a 35 F who presents [facility] Medical History Wears glasses Depression Anxiety Substance abuse Restless legs Migraine headache Seizures Vapes nicotine containing substance History of pain when walking History of edema Hypertension Home Medications ?Medication ?Instructions ?Recorded ?Last Taken ?Type acyclovir 400 mg tablet (Zovirax) 400 mg PO BID 04/10/18 03/04/25 History lisinopril 10 mg tablet 10 mg PO DAILY 02/23/25 03/04/25 History apixaban 2.5 mg tablet (Eliquis) 2.5 mg PO Q12H #30 tabs 03/05/25 Unknown Rx hydrocodone-acetaminophen 5-325mg 1 - 2 tab PO Q6H PRN pain 3 days 03/05/25 Unknown Rx 5mg-325mg #24 tabs Allergy/AdvReac Type Severity Reaction Status Date / Time vaccine adjuvant emulsion Allergy Severe ALMOST Verified 03/05/25 06:26 MF59C.1 raspberry Allergy Hives Verified 03/05/25 06:26 Surgical History Hx of wisdom tooth extraction Hx of umbilical hernia repair Hx laparoscopic cholecystectomy Social History Smoking Status: Current every day smoker tobacco type: e-cigarettes alcohol intake: current alcohol intake frequency: holidays/special occasions only Vital Signs Vital Signs Vital Signs: Weight Weight: 93.4 kg Body Mass Index (BMI) 34.2 Assessment & Plan Assessment/Plan (1) Calcaneal spur, left foot: PLAN: Plan History & Physical was completed on 02/22/2025 by nurse practitioner Comfort Pantoja, I re-evaluated patient pre operatively on 03/05/2025 and no changes noted.
== END 2025-03-05 11:59 | disposition home or self-care (01) ==
LOC: SDC 05:52 → AC 05:54
PROVIDERS: Anesthesiology; PCP Nurse Practitioner Family; Referring Provider Podiatrist; Visit Provider Podiatrist
PROC: (CPT 27650; principal; 2025-03-05 07:15)
DX: M77.32 Calcaneal spur, left foot (principal); M76.62 Achilles tendinitis, left leg; I10 Essential (primary) hypertension; G89.29 Other chronic pain; F17.290 Nicotine dependence, other tobacco product, uncomplicated; Z79.899 Other long term (current) drug therapy
CPT/HCPCS: 28119; 27654; 01480; 88307; 73620; 73630; 76000; 81025; 88304; 88311; C1713; J2405

== ENCOUNTER → 2025-05-20 | Outpatient (CLI) | payer MEDICAID, SELFPAY ==
[2025-05-20 10:31] LABS: Hematocrit 38.2 % (37-47); Hemoglobin 13.5 g/dL (12.0-15.0); Immature Granulocytes Count 0.040 X10^3/uL (0.0-0.0); Mean Corp Hgb Conc 35.3 g/dL (32-36); Mean Corpuscular Volume 89.7 fL (81-99); Mean Platelet Vol. 9.3 fl (6.2-12.0); NRBC Flagged by Analyzer 0.2 % (0-5); Platelet Count 280 K/mm3 (150-450); RBC Distribution Width CV 11.9 % (11.6-14.6); RBC Distribution Width SD 38.5 fl (35.1-43.9); Red Blood Count 4.26 M/mm3 (4.2-5.4); White Blood Count 8.8 K/mm3 (4.4-11.0)
[2025-05-20 11:27] LABS: AST(SGOT) 19 U/L (<=31); Alanine Aminotransfer ALT/SGPT 21 U/L (<=34); Albumin, Serum 4.3 g/dL (3.5-5.0); Alkaline Phosphatase 64 U/L (35-104); Anion Gap 13 (5-15); BUN 12 mg/dL (4-19); BUN/Creat Ratio 17.9 RATIO (10-20); Calcium,Total 9.5 mg/dL (7.6-11.0); Carbon Dioxide 20.6 mmol/L (21.0-32.0); Chloride 105 mmol/L (98-108); Globulin 3.0 g/dL (2.2-4.2); Glucose 99 mg/dL (70-99); Magnesium 2.0 mg/dL (1.5-2.2); Potassium 4.1 mmol/L (3.3-5.1)
== END | disposition home or self-care (01) ==
LOC: PAVLAB 10:07
PROVIDERS: PCP Nurse Practitioner Family; Referring Provider Nurse Practitioner Family; Visit Provider Nurse Practitioner Family
DX: K58.2 Mixed irritable bowel syndrome (principal)
CPT/HCPCS: 36415; 80053; 83735; 85025

== ENCOUNTER → 2025-05-21 | Outpatient (CLI) | payer MEDICAID, SELFPAY | END | disposition home or self-care (01) | LOC: LABSPEC 12:24 | PROVIDERS: PCP Nurse Practitioner Family; Referring Provider Nurse Practitioner Family; Visit Provider Nurse Practitioner Family | DX: K58.2 Mixed irritable bowel syndrome (principal) | CPT/HCPCS: 82274; 87177; 87209; 87493; 87506 ==

== ENCOUNTER → 2025-07-20 | Outpatient (CLI) | payer MEDICAID, SELFPAY ==
--- NOTE | 2025-07-20 12:40 | MRI_ITS ---
PROCEDURE: MRI/Lower Ext Joint Only (Routine)
== END | disposition home or self-care (01) ==
LOC: MRI 12:31
PROVIDERS: PCP Nurse Practitioner Family; Referring Provider Podiatrist; Visit Provider Podiatrist
DX: M76.62 Achilles tendinitis, left leg (principal); M76.72 Peroneal tendinitis, left leg; M76.822 Posterior tibial tendinitis, left leg
CPT/HCPCS: 73721

== ENCOUNTER 2025-09-01 08:59 | Day surgery (SDC) | payer MEDICAID, SELFPAY ==
--- NOTE | 2025-08-31 08:58 | PAT.ANESEVAL ---
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 When Was Last Pacemaker Check QUESTION #4 FULL TEXT: You/Your Family Experience fever (hyperthermia) with Anesthesia Last Oral Intake Last Oral intake: Last Oral Intake NPO since Meds taken in AM with sips of water? 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 operator Female Yes 08/31/25 08:19 HX of Motion Sickness No 08/31/25 08:19 HX of N/V After Surgery No 08/31/25 08:19 Non-Smoker Yes 08/31/25 08:19 Duration of Surgery greater No 08/31/25 08:19 than 60 minutes Number of Risk Factors 2 08/31/25 08:19 PONV Score Moderate Risk 08/31/25 08:19 Height & Weight Height & Weight: Anesthesia: Height & Weight Height 5 ft 5 in 03/05/25 06:15 Respiratory Assessment Respiratory Assessment - flatlock sewing machine operator: Respiratory Tract Infection Hx - 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 Has anyone observed you stop No 08/31/25 08:19 breathing during sleep? STOP Results Negative 08/31/25 08:19 QUESTION #5 FULL TEXT : Do you snore loudly (louder than talking or can be heard through closed doors)? 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 Specify any problems Hx of Preganancy in last 3 No 08/31/25 08:19 Months Nurse Filling Out Transfusion [email or web address] 08/31/25 08:19 & Questions: Date: 08/31/25 08/31/25 08:19 Time: 08:21 08/31/25 08:19 Patient unable to answer at this time (ie. 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 operator Hx Now Gestational Age (in weeks): EDC: Hx Hx Para Hx Section SAB No 03/03/25 07:51 Does the father of the baby or his family experience fever w Father of the baby Malignant Hypertension history comment [facility] Medical History IBS (irritable bowel syndrome) Wears glasses Depression Anxiety Substance abuse Restless legs Migraine headache Seizures Vapes nicotine containing substance History of pain when walking History of edema Hypertension Home Medications ?Medication ?Instructions ?Recorded ?Last Taken ?Type acyclovir 400 mg tablet (Zovirax) 400 mg PO BID 04/10/18 03/04/25 History lisinopril 10 mg tablet 10 mg PO DAILY 02/23/25 03/04/25 History Allergy/AdvReac Type Severity Reaction Status Date / Time vaccine adjuvant emulsion Allergy Severe ALMOST Verified 03/05/25 06:26 MF59C.1 raspberry Allergy Hives Verified 03/05/25 06:26 Surgical History (Updated 08/31/25 @ 08:24 by Joseph Lerma) H/O bilateral salpingectomy H/O foot surgery Hx of wisdom tooth extraction Hx of umbilical hernia repair Hx laparoscopic cholecystectomy Social History (Updated 08/04/25 @ 14:33 by Brigid Calhoun) Smoking Status: Current every day smoker tobacco type: e-cigarettes alcohol intake: current alcohol intake frequency: holidays/special occasions only what type of physical activity do you participate in: none Audit: Pertinent Findings Pertinent Findings EKG Perinent findings: 03/03/2025. Normal sinus rhythm. Nonspecific ST and T wave abnormality. Prolonged QT. 79 bpm. Recommendation Anesthesia Recommendation Anesthesia recommendation: OPTIMIZED for anesthesia
[2025-09-01] VITALS (7 sets, daily range): BP systolic 118–150; BP diastolic 68–98; PULSE 67–92; RESP 16; TEMP 36.1–37.2; O2SAT 98–100; BMI 38.1
--- NOTE | 2025-09-01 09:27 | PCM.HP.STD ---
HPI - General General Date of Admission: 09/01/25 Date of Service: 09/01/25 Chief Complaint: Abdominal pain and diarrhea HPI Narrative THEODORE VIVEROS, is a 35 F who presents [ Chief Complaint: Diarrhea; Details: The patient reports chronic diarrhea for as long as can be remembered, with episodes occurring 5?6 times per day followed by 1?2 weeks without diarrhea. Gallbladder removal was performed in 2018 because it was not functioning; an internal stent was placed and later removed, and a bile leak was discussed at that time. The patient denies having gallstones and reports a history of kidney stones. A computed tomography (CT) scan dated 09/06/2024 was reviewed during the visit; discussion noted a small hiatal hernia and markedly thickened segments of small bowel near the area where the colon attaches to the small bowel. Headaches have become more frequent; Excedrin is taken once or twice daily. Ibuprofen and acetaminophen were tried previously without benefit. Headaches occur both day and night, worse during the day, variably located (back of head, top, or front), not worsened by sunlight, not radiating to neck/eyes/back, and occasionally associated with ringing in the ears. No sinus symptoms or seasonal variation. Works at [employer] and experiences headaches at work. Left foot surgery for a heel spur was done previously; recovery was prolonged, but the patient can drive (left foot; does not drive stick). A primary care provider is identified as Comfort Mederos. [facility] Medical History IBS (irritable bowel syndrome) Wears glasses Depression Anxiety Substance abuse Restless legs Migraine headache Seizures Vapes nicotine containing substance History of pain when walking History of edema Hypertension Home Medications ?Medication ?Instructions ?Recorded ?Last Taken ?Type acyclovir 400 mg tablet (Zovirax) 400 mg PO BID 04/10/18 03/04/25 History lisinopril 10 mg tablet 10 mg PO DAILY 02/23/25 08/31/25 History bisacodyl 5 mg tablet,delayed See Rx Instructions .Route 08/31/25 Unknown Rx release .COMPLEX #4 tabs polyethylene glycol 3350 17 See Rx Instructions .Route 08/31/25 Unknown Rx gram/dose oral powder (Miralax) .COMPLEX #238 grams Allergy/AdvReac Type Severity Reaction Status Date / Time vaccine adjuvant emulsion Allergy Severe ALMOST Verified 09/01/25 09:23 MF59C.1 raspberry Allergy Hives Verified 09/01/25 09:23 Surgical History H/O bilateral salpingectomy H/O foot surgery Hx of wisdom tooth extraction Hx of umbilical hernia repair Hx laparoscopic cholecystectomy Social History Smoking Status: Current every day smoker tobacco type: e-cigarettes alcohol intake: current alcohol intake frequency: holidays/special occasions only what type of physical activity do you participate in: none ROS Constitutional Constitutional: Denies fatigue, fever(s), poor appetite, weight gain or weight loss Gastrointestinal Gastrointestinal: Denies belching, bloating, change in bowel habits, change in stool character, chewing difficulty, coffee ground emesis, constipation, cramping, diarrhea, dyspepsia, dysphagia, early satiety, excessive flatus, fecal incontinence, heartburn, hematemesis, hematochezia, hemorrhoids, loose stools, melena, nausea, odynophagia, rectal bleeding, tenesmus, vomiting or weight changes Physical Exam Const alert, oriented x3, no apparent distress and healthy appearing General Appearance: cooperative GI normal to inspection, nondistended, normoactive bowel sounds, soft to palpation, non-tender and non-distended Percussion: normal to percussion Rectal Exam: deferred Assessment & Plan Assessment/Plan (1) Bloating: (2) IBS (irritable bowel syndrome): PLAN: Assessment and Plan Assessment and Plan (1) Diarrhea: Plan: Chronic diarrhea : Chronic diarrhea with intermittent episodes; prior CT on 09/06/2024 discussed showing thickened small bowel near the ileocecal region; longstanding since before/after cholecystectomy. - Plan to evaluate the lower gastrointestinal tract (colon). - Plan to evaluate the upper gastrointestinal tract (stomach). - Nurse to set up the procedures today. Frequent headaches : Headaches occurring daily, requiring Excedrin once or twice per day; ibuprofen and acetaminophen ineffective; occasional tinnitus; daytime predominance; no sinus symptoms. - Discussed that daily Excedrin use can cause ulcers and rebound headaches. - Advised to inform primary care provider (Comfort Mederos) about frequent headaches and daily Excedrin use to consider alternative treatment options. Hiatal hernia (on CT, 09/06/2024) : Small hiatal hernia noted on CT scan reviewed during visit. History of kidney stones : Patient-reported past kidney stones; denies gallstones. Post-cholecystectomy status : Gallbladder removed in 2018 due to non-functioning; internal stent placed and later removed; bile leak discussed at the time. Follow-up : Logistics and return planning.]
[2025-09-01] MEDS: Lactated Ringers 1,000 ML 15 ML IV (09:28)
--- NOTE | 2025-09-01 10:15 | COLBX_PTH ---
PATIENT: THEODORE VIVEROS LOC: EN U#:[id number] AGE/SX: 35/F ROOM: RE09/01/[address]: Dr. Musa Kaur DO : 1990 BED: DIS: 09/01/2025 SPEC #: [id number] RECD: 09/01/25 13:43 STATUS: JIGNESH RETom #: [id number] ELVIRA: 09/01/25 10:[address]: Musa Kaur DEPT: SURGICAL PATHOLOGY RECD BY: Sagar Chery ENTERED: 09/01/25 15:44 SP TYPE: COLON BX OTHR DR: Comfort Pantoja, EXHIBIT SPECIALIST-C Tissues: A - Gastric mucous membrane B - Duodenum, NOS C - Ileum, NOS D - COLON BIOPSY Procedures: Immunohistochemical Stains Surgery Specimen Level IV HEADER OPERATION: Colonoscopy, EGD, biopsy PRE-OP DIAGNOSIS: Bloating, irritable bowel syndrome, diarrhea TISSUE SUBMITTED: A- Gastric antrum biopsy, B- Duodenum biopsy, C- Terminal ileum biopsy,D- Random colonic biopsy MICROSCOPIC DIAGNOSIS A. Stomach, antrum, biopsy: Oxyntic mucosa with features of reactive gastropathy. IHC negative for H. pylori organisms. B. Small intestine, duodenum, biopsy: Normal villous architecture with Matteo gland hyperplasia and gastric mucin cell metaplasia, suggestive of peptic injury. Negative for increased intraepithelial lymphocytes. C. Small intestine, terminal ileum, biopsy: Prominent mucosal lymphoid tissue, favor reactive - see note. Note: If clinical concern for a lymphoproliferative disorder is high, please contact the Laboratory to request further evaluation. D. Colon, random, biopsy: No specific pathologic change. The histologic features of microscopic colitis are not demonstrated. MICROSCOPIC DESCRIPTION Slides are reviewed. All matched controls reacted appropriately. These tests were developed and their performance characteristics determined by [facility]. They may not have been cleared or approved by the U.S. Food and Drug Administration. The FDA has determined that such clearance or approval is not necessary. The above immunohistochemical markers are viewed by the Pathologist. GROSS DESCRIPTION A. Received in fixative is one container labeled with the patient's name and designated Gastric antrum biopsy. The specimen consists of multiple irregular fragments of olivas tissue that in aggregate measure 0.9 x 0.6 x 0.1 cm. The specimen is totally submitted in one cassette. B. Received in fixative is one container labeled with the patient's name and designated Duodenum biopsy. The specimen consists of two irregular fragments of olivas tissue that measure <0.1 and 0.5 cm. Smallest fragment unlikely to survive processing. The specimen is totally submitted in one cassette. C. Received in fixative is one container labeled with the patient's name and designated Terminal ileum biopsy. The specimen consists of two irregular fragments of olivas tissue that measure 0.4 and 0.6 cm. The specimen is totally submitted in one cassette. D. Received in fixative is one container labeled with the patient's name and designated Random colonic biopsy. The specimen consists of three irregular fragments of olivas tissue that measure 0.3 to 0.5cm. The specimen is totally submitted in one cassette. RI 09/01/2025 CPT:70257q7,59666
--- NOTE | 2025-09-01 10:23 | PCM.PRE.AN2 ---
ASA Classification* ASA Classification ASA Classification: 2 Assessment & Plan Anesthesia* Anesthesia Assessment Anesthesia Assessment: Discussed sedation and/or anesthesia options, risks, benefits, and alternatives with patient/parents/legal guardian/POA. Questions invited. The patient/parents/legal guardian/POA seems to understand and agrees to proceed with anesthesia plan. Reviewed the physical assessment, medical history, allergy history and patient home medications list prior to surgery/procedure/anesthetic and documented any changes. Performed airway and anesthesia risk assessments. Anesthesia Type Anesthesia Type: MAC History Source History Obtained from:: Patient and Chart Anesthesia Focused Assessment* Temperature: 98.9 F Pulse Rate: 92 Blood Pressure: 150/98 Respiratory Rate: 16 Pulse Ox: 99 Oxygen Delivery Method: Room Air Airway Assessment Mouth opens: >3 cm Mallampati Score: II Teeth Condition: Missing (Patient has several missing teeth. Rest of the teeth are tight.) Neck Range of motion (ROM): Full ROM Labs Anesthesia Preop lab: CBC WBC, (4.4-11.0) 8.8 K/mm3 05/20/25, 10: RBC, (4.2-5.4) 4.26 M/mm3 05/20/25, 10: Hgb, (12.0-15.0) 13.5 g/dL 05/20/25, : Hct, (37-47) 38.2 % 05/20/25, : Plt Count, (150-450) 280 K/mm3 05/20/25, 10:22 CHEMISTRY Potassium, (3.3-5.1) 4.1 mmol/L 05/20/25, 10: Sodium, (133-145) 139 mmol/L 05/20/25, 10: Magnesium, (1.5-2.2) 2.0 mg/dL 05/20/25, 10: BUN, (4-19) 12 mg/dL 05/20/25, : Creatinine, (0.70-1.20) 0.69 mg/dL L 05/20/25, 10: Glucose, (70-99) 99 mg/dL 05/20/25, 10: POC Glucose, (70-110) 147 mg/dL H 10/21/14, 00:00 COAG PT, (11.7-14.9) 13.7 SECONDS 11/22/17, 23:20 Urine Test Negative Negative 03/05/25, 06:10 Pre-Assessment Diagnosis/Proposed Procedure Planned Operative Procedure(s): COLONOSCOPY, EGD Anesthesia History 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 When Was Last Pacemaker Check QUESTION #4 FULL TEXT: You/Your Family Experience fever (hyperthermia) with Anesthesia Last Oral Intake Last Oral intake: Last Oral Intake NPO since 06:00 09/01/25 09:24 Meds taken in AM with sips of No 09/01/25 09:24 water? Meds patient instructed to take am of surgery Any additional information?: Yes NPO since: 06:00 (Patient finished her prep at 6 AM.) PONV PONV - chief creative officer: PONV - chief creative officer Female Yes 08/31/25 08:19 HX of Motion Sickness No 08/31/25 08:19 HX of N/V After Surgery No 08/31/25 08:19 Non-Smoker Yes 08/31/25 08:19 Duration of Surgery greater No 08/31/25 08:19 than 60 minutes Number of Risk Factors 2 08/31/25 08:19 PONV Score Moderate Risk 08/31/25 08:19 Height & Weight Height & Weight: Anesthesia: Height & Weight Height 5 ft 5 in 09/01/25 09:24 Weight: 104 kg 09/01/25 09:24 Body Mass Index (BMI) 38.1 09/01/25 09:24 Respiratory Assessment Respiratory Assessment - chief creative officer: Respiratory Tract Infection Hx - chief creative officer Hx Respiratory Tract Infection No 08/31/25 08:19 STOP Sleep Apnea STOP Sleep Apnea - chief creative officer: STOP Sleep Apnea - chief creative officer Hx Hypertension Yes: CONTROLLED WITH MEDS 08/31/25 08:19 Hx Sleep Apnea No 08/31/25 08:19 CPAP BIPAP Do you snore loudly (louder No 08/31/25 08:19 than talking or can be heard Do you often feel tired/ No 08/31/25 08:19 fatigued/ sleepy during daytime? Has anyone observed you stop No 08/31/25 08:19 breathing during sleep? STOP Results Negative 08/31/25 08:19 QUESTION #5 FULL TEXT : Do you snore loudly (louder than talking or can be heard through closed doors)? Tobacco Use History Tobacco Use History - chief creative officer: Tobacco Use History - chief creative officer Tobacco Use Vapor 03/05/25 07:33 Smoking Status Current every day smoker 08/31/25 08:19 Hx Tobacco Use Yes 08/31/25 08:19 Years Smoking Packs Smoked per Day Smoking Cessation Date was within the last 15 years Hx Smoking Cessation Date Hx Smoking Cessation No 03/03/25 08:56 Counseling Any additional information?: Yes Tobacco Use: Vapor (Patient no longer uses her vape for the past six months.) Hematologic Medial History Hematologic Hx - chief creative officer: Hematologic Medical Hx - nut former Hx of Blood Transfusion No 08/31/25 08:19 Hx of Transfusion in last 3 No 08/31/25 08:19 Months Date of Last Transfusion (if within last 3 months) Ever experience any problems No 08/31/25 08:19 with transfusion(s)? Specify any problems Hx of Preganancy in last 3 No 08/31/25 08:19 Months Nurse Filling Out Transfusion [email or web address] 08/31/25 08:19 & Questions: Date: 08/31/25 08/31/25 08:19 Time: 08:21 08/31/25 08:19 Patient unable to answer at this time (ie. confused, unrespo /Reproduction History /Reproductive History - chief creative officer: /Reproductive Hx- chief creative officer Hx Now Gestational Age (in weeks): EDC: Hx Hx Para Hx Section SAB No 03/03/25 07:51 Does the father of the baby or his family experience fever w Father of the baby Malignant Hypertension history comment Active Medications Active Medications: Current Medications Generic Name Dose Route Start Last Admin Trade Name Freq PRN Reason Stop Dose Admin Lactated Ringer's 1,000 mls @ 15 mls/hr 09/01/25 09:15 09/01/25 09:28 IV 15 mls/hr .Q48H LOTTIE Administration PFSH Medical History IBS (irritable bowel syndrome) Wears glasses Depression Anxiety Substance abuse Restless legs Migraine headache Seizures Vapes nicotine containing substance History of pain when walking History of edema Hypertension Home Medications ?Medication ?Instructions ?Recorded ?Last Taken ?Type acyclovir 400 mg tablet (Zovirax) 400 mg PO BID 04/10/18 03/04/25 History lisinopril 10 mg tablet 10 mg PO DAILY 02/23/25 08/31/25 History bisacodyl 5 mg tablet,delayed See Rx Instructions .Route 08/31/25 Unknown Rx release .COMPLEX #4 tabs polyethylene glycol 3350 17 See Rx Instructions .Route 08/31/25 Unknown Rx gram/dose oral powder (Miralax) .COMPLEX #238 grams Allergy/AdvReac Type Severity Reaction Status Date / Time vaccine adjuvant emulsion Allergy Severe ALMOST Verified 09/01/25 09:23 [id number] raspberry Allergy Hives Verified 09/01/25 09:23 Surgical History H/O bilateral salpingectomy H/O foot surgery Hx of wisdom tooth extraction Hx of umbilical hernia repair Hx laparoscopic cholecystectomy Social History Smoking Status: Current every day smoker tobacco type: e-cigarettes alcohol intake: current alcohol intake frequency: holidays/special occasions only what type of physical activity do you participate in: none Review of Systems (Anesthesia) ROS Narrative System reviewed and no additional complaints, except as documented.
--- NOTE | 2025-09-01 11:18 | OP.PROVAT_ITS ---
09/01/2025 Jose L Mi Re : Upper GI endoscopy procedure for Kenia Hunter Dear Kit This procedure was performed on Monday, September 01, 2025. My impressions and recommendations are as follows: Impressions : - Normal esophagus. - Erythematous mucosa in the gastric body. Biopsied. - No gross lesions in the entire examined duodenum. Biopsied. Recommendations : - Discharge patient to home. - Resume previous diet. - Continue present medications. - Await pathology results. My findings are described in the full procedure note, which is enclosed. If I can be of further assistance, please feel free to contact me at . Sincerely, Musa Kaur, 09/01/2025 11:17:57 AM This report has been signed electronically.
--- NOTE | 2025-09-01 11:18 | OP.EGD_ITS ---
Patient Name: Kneia Hunter Procedure Date: 09/01/2025 10:47 AM Date of : 1990 Age: 35 Procedure: Upper GI endoscopy Indications: Epigastric abdominal pain, Abdominal pain in the right upper quadrant, Abdominal pain in the left upper quadrant, Upper abdominal pain Providers: Musa Kaur DO Referring MD: Jose L Mi Medicines: Monitored Anesthesia Care Patient Profile: This is a 35 year old female. Refer to note in patient chart for documentation of history and physical. Patient has symptoms of chronic abdominal cramping, chronic abdominal distention, chronic epigastric abdominal pain, chronic dyspepsia and chronic nausea. Complications: No immediate complications. Procedure: Pre-Anesthesia Assessment: - Prior to the procedure, a History and Physical was performed, and patient medications and allergies were reviewed. The patient is competent. The risks and benefits of the procedure and the sedation options and risks were discussed with the patient. All questions were answered and informed consent was obtained. Patient identification and proposed procedure were verified by the physician in the pre-procedure area. Mental Status Examination: alert and oriented. Airway Examination: normal oropharyngeal airway and neck mobility. Respiratory Examination: clear to auscultation. CV Examination: normal. Prophylactic Antibiotics: The patient does not require prophylactic antibiotics. Prior Anticoagulants: The patient has taken no anticoagulant or antiplatelet agents except for NSAID medication. ASA Grade Assessment: II - A patient with mild systemic disease. After reviewing the risks and benefits, the patient was deemed in satisfactory condition to undergo the procedure. The anesthesia plan was to use monitored anesthesia care (MAC). Immediately prior to administration of medications, the patient was re-assessed for adequacy to receive sedatives. The heart rate, respiratory rate, oxygen saturations, blood pressure, adequacy of pulmonary ventilation, and response to care were monitored throughout the procedure. The physical status of the patient was re-assessed after the procedure. After obtaining informed consent, the endoscope was passed under direct vision. Throughout the procedure, the patient's blood pressure, pulse, and oxygen saturations were monitored continuously. The colonoscope was introduced through the mouth, and advanced to the third part of the duodenum. Small bowel enteroscopy was deemed necessary. The upper GI endoscopy was accomplished without difficulty. The patient tolerated the procedure well. Scope In: 10:55:58 AM Scope Out: 10:59:29 AM Total Procedure Duration Time 0 hours 3 minutes 31 seconds Findings: The examined esophagus was normal. Patchy mildly erythematous mucosa without bleeding was found in the gastric body. Biopsies were taken with a cold forceps for histology. Biopsies were taken with a cold forceps for Helicobacter pylori testing. Verification of patient identification for the specimen was done. Estimated blood loss was minimal. No gross lesions were noted in the entire examined duodenum. Biopsies were taken with a cold forceps for histology. Verification of patient identification for the specimen was done. Estimated blood loss was minimal. Impression: - Normal esophagus. - Erythematous mucosa in the gastric body. Biopsied. - No gross lesions in the entire examined duodenum. Biopsied. Recommendation: - Discharge patient to home. - Resume previous diet. - Continue present medications. - Await pathology results. Procedure Code(s): --- Professional --- 53225, Small intestinal endoscopy, enteroscopy beyond second portion of duodenum, not including ileum; with biopsy, single or multiple CPT copyright 2021 [employer]. All rights reserved. The codes documented in this report are preliminary and upon science analyst review may be revised to meet current compliance requirements. Musa Kaur DO 09/01/2025 11:17:57 AM This report has been signed electronically. Number of Addenda: 0 Note Initiated On: 09/01/2025 10:47 AM
--- NOTE | 2025-09-01 11:21 | OP.PROVAT_ITS ---
09/01/2025 Jose L Mi Re : Colonoscopy procedure for Kenia Hunter Dear Kit This procedure was performed on Monday, September 01, 2025. My impressions and recommendations are as follows: Impressions : - The entire examined colon is normal. Biopsied. - The examined portion of the ileum was normal. Biopsied. Recommendations : - Discharge patient to home. - Resume previous diet. - Continue present medications. - Await pathology results. - Repeat colonoscopy (date not yet determined) for surveillance. My findings are described in the full procedure note, which is enclosed. If I can be of further assistance, please feel free to contact me at . Sincerely, Musa Kaur, 09/01/2025 11:21:10 AM This report has been signed electronically.
--- NOTE | 2025-09-01 11:21 | OP.COLON_ITS ---
Patient Name: Kenia Hunter Procedure Date: 09/01/2025 10:59 AM Date of : 1990 Age: 35 Procedure: Colonoscopy Indications: Abdominal pain in the left lower quadrant, Abdominal pain in the right lower quadrant, Clinically significant diarrhea of unexplained origin Providers: Musa Kaur DO Referring MD: Jose L Mi Medicines: Monitored Anesthesia Care Patient Profile: This is a 35 year old female. Refer to note in patient chart for documentation of history and physical. Patient has symptoms of chronic abdominal cramping, chronic abdominal distention, chronic epigastric abdominal pain, chronic dyspepsia and chronic nausea. Last Colonoscopy: none. The patient's first colonoscopy is today. Complications: No immediate complications. Procedure: Pre-Anesthesia Assessment: - Prior to the procedure, a History and Physical was performed, and patient medications and allergies were reviewed. The patient is competent. The risks and benefits of the procedure and the sedation options and risks were discussed with the patient. All questions were answered and informed consent was obtained. Patient identification and proposed procedure were verified by the physician in the pre-procedure area. Mental Status Examination: alert and oriented. Airway Examination: normal oropharyngeal airway and neck mobility. Respiratory Examination: clear to auscultation. CV Examination: normal. Prophylactic Antibiotics: The patient does not require prophylactic antibiotics. Prior Anticoagulants: The patient has taken no anticoagulant or antiplatelet agents except for NSAID medication. ASA Grade Assessment: II - A patient with mild systemic disease. After reviewing the risks and benefits, the patient was deemed in satisfactory condition to undergo the procedure. The anesthesia plan was to use monitored anesthesia care (MAC). Immediately prior to administration of medications, the patient was re-assessed for adequacy to receive sedatives. The heart rate, respiratory rate, oxygen saturations, blood pressure, adequacy of pulmonary ventilation, and response to care were monitored throughout the procedure. The physical status of the patient was re-assessed after the procedure. After I obtained informed consent, the scope was passed under direct vision. Throughout the procedure, the patient's blood pressure, pulse, and oxygen saturations were monitored continuously. The colonoscope was introduced through the anus and advanced to the terminal ileum. The colonoscopy was performed without difficulty. The patient tolerated the procedure well. The quality of the bowel preparation was adequate. The terminal ileum, ileocecal valve, appendiceal orifice, and rectum were photographed. Scope In: 11:00:51 AM Scope Withdrawal Time 0 hours 9 minutes 18 seconds Scope Out: 11:12:48 AM Total Procedure Duration Time 0 hours 11 minutes 57 seconds Findings: The perianal and digital rectal examinations were normal. The colon (entire examined portion) appeared normal. Biopsies for histology were taken with a cold forceps from the right colon and left colon for evaluation of microscopic colitis. Verification of patient identification for the specimen was done. Estimated blood loss was minimal. The terminal ileum appeared normal. Biopsies were taken with a cold forceps for histology. Non-bleeding external and internal hemorrhoids were found during retroflexion. The hemorrhoids were Grade II (internal hemorrhoids that prolapse but reduce spontaneously). Impression: - The entire examined colon is normal. Biopsied. - The examined portion of the ileum was normal. Biopsied. Recommendation: - Discharge patient to home. - Resume previous diet. - Continue present medications. - Await pathology results. - Repeat colonoscopy (date not yet determined) for surveillance. Procedure Code(s): --- Professional --- 36324, Colonoscopy, flexible; with biopsy, single or multiple CPT copyright 2021 [employer]. All rights reserved. The codes documented in this report are preliminary and upon instrumentation controls engineer review may be revised to meet current compliance requirements. Musa Kaur DO 09/01/2025 11:21:10 AM This report has been signed electronically. Number of Addenda: 0 Note Initiated On: 09/01/2025 10:59 AM
--- NOTE | 2025-09-01 11:24 | PCM.POST.ANE ---
Anesthesia: Postop Eval I Current Vital Signs Temperature: 97 F Pulse Rate: 72 Blood Pressure: 120/68 Respiratory Rate: 16 Pulse Ox: 99 Oxygen Delivery Method: Room Air Assessment Airway patent: Yes Spontaneous unlabored respirations: Yes Mental status: Asleep nausea: No Vomiting: No Anesthesia Complication: No Fluid Hydration Crystalloid volume administer (ml): 500 Total IV fluid infused: 500 Progress Note Anesthesia document: Postop Eval 1 completed: Yes
--- NOTE | 2025-09-01 21:53 | PCM.POSTANE2 ---
Anesthesia Postop Eval I Sum Postop Eval Completion status Anesthesia document: Postop Eval 1 completed: Yes Anesthesia Postop Eval I Summary Anesthesia Postop Eval I Summary: Anesthesia Postop Eval I: Assessment Summary Airway patent Yes 09/01/25 11:25 [email or web address] Spontaneous unlabored Yes 09/01/25 11:25 [email or web address] respirations Mental status Asleep 09/01/25 11:25 [email or web address] nausea No 09/01/25 11:25 [email or web address] Vomiting No 09/01/25 11:25 [email or web address] Anesthesia Postop Eval I: Fluid Summary Crystalloid volume administer 500 09/01/25 11:25 [email or web address] (ml) Colloids volume administered ( ml) Blood Product volume administered (ml) Total IV fluid infused 500 09/01/25 11:25 [email or web address] Anesthesia Postop Eval I: Summary Notes Anesthesia Complication No 09/01/25 11:25 [email or web address] Anesthesia Complication Comment: Post-operative progress note Anesthesia: Postop Eval II Evaluation Mental status: Awake and Calm Pain Level: 0 nausea: No Vomiting: No Complications Anesthesia Complication: No
== END 2025-09-01 12:16 | disposition home or self-care (01) ==
LOC: EN 09:02 → AC 09:04
PROVIDERS: PCP Nurse Practitioner Family; Referring Provider Nurse Practitioner Family; Visit Provider Internal Medicine Gastroenterology
PROC: 0DJD8ZZ Inspection of Lower Intestinal Tract, Via Natural or Artificial Opening Endoscopic (ICD-10-PCS; CPT 45378; principal; 2025-09-01 10:10)
DX: K31.A19 Gastric intestinal metaplasia without dysplasia, unspecified site (principal); R10.13 Epigastric pain; K64.1 Second degree hemorrhoids; Z79.899 Other long term (current) drug therapy; I10 Essential (primary) hypertension; F17.290 Nicotine dependence, other tobacco product, uncomplicated; K64.4 Residual hemorrhoidal skin tags; R10.11 Right upper quadrant pain; R10.12 Left upper quadrant pain
CPT/HCPCS: 45380; 44361; 88305; 88342; J2405